=== PATIENT | male | born 1950 | race Caucasian/White ===

== ENCOUNTER → 2017-05-31 10:26 | Outpatient (CLI) | payer MEDICARE, SELFPAY ==
[2017-05-31 13:14] LABS: AST(SGOT) 19 U/L (15-37); Alanine Aminotransfer ALT/SGPT 15 U/L (16-61); Albumin, Serum 3.6 g/dL (3.2-5.0); Alkaline Phosphatase 69 U/L (45-117); Cholesterol 100 mg/dL (200); Globulin 3.6 g/dL (2.2-4.2); High Density Lipoprotein 46 mg/dL; Protein, Total 7.2 g/dL (6.4-8.2); Triglycerides 70 mg/dL; Very Low Density Lipoprotein 14 mg/dL (5-40)
== END ==
PROVIDERS: Family Provider Family Medicine; PCP Family Medicine; Visit Provider Nurse Practitioner Family
DX: E78.5 Hyperlipidemia, unspecified (principal); Z79.899 Other long term (current) drug therapy
CPT/HCPCS: 36415; 80061; 80076

== ENCOUNTER 2017-09-26 19:53 | Emergency (ER) | payer MEDICARE, SELFPAY ==
[2017-09-26 19:53] VITALS: BP 148/91; PULSE 64; RESP 16; TEMP 36.6; O2SAT 99; BMI 26.2
--- NOTE | 2017-09-26 21:14 | RAD_ITS ---
STUDY: X-RAY - LEFT ELBOW REASON FOR EXAM: Male, 66 years old. Elbow pain and swelling after falling. TECHNIQUE: 3 view(s) of the elbow. COMPARISON: None. FINDINGS: Normal visualized humerus, radius and ulna. Normal radiocapitellar and ulnotrochlear articulations. Focal posterior soft tissue hematoma. RAD/Elbow min 3 Views IMPRESSION: Posterior hematoma of the elbow without underlying fracture, dislocation or hemarthrosis. Electronically Signed: Anna Smith MD at 21:49 EDT , Service support ,
[2017-09-26] MEDS: Acetaminophen 325 MG Tablet 650 MG PO (21:21)
--- NOTE | 2017-09-26 22:53 | ED.VISSUMM ---
- ER Visit Summary Date of Service: 09/26/17 Chief Complaint: Fall History of Present Illness: The patient is a 66 M who fell from standing. He landed on his left elbow and left hip. Complains of swelling and pain to the left elbow. Denies any head or neck injury. Denies head or neck pain. Denies loss of consciousness. He does take aspirin and Plavix. No weakness or numbness. No other associated symptoms. Physical Examination: Afebrile and vital signs unremarkable. Head and neck atraumatic. Left arm is remarkable for swelling over the olecranon. No obvious deformity. Good range of motion. Neurovascular intact distally. Skin is intact. Left hip shows no shortening. Negative logroll. Good range of motion. There is some associated bruising. Neurovascular intact distally. Otherwise atraumatic. Test Results: X-rays of the left elbow showed a hematoma but no underlying fracture. Patient declined x-rays of his hip. Emergency Department Course and Treatment: Patient was advised that he has a hematoma, possibly traumatic bursitis. No sign of fracture. He was given a [place] home pack. He is not currently on any active opioid prescriptions. Risks were discussed. Follow-up with Ortho. Treatment Plan: As above Disposition: Discharged Impression: 1. Left traumatic olecranon bursitis This note was generated with [employer] dictation software. It may contain incorrect words, spelling, and punctuation that were not noted in review of the chart prior to signing ED Disposition - Plan for ED Patient: Chief Complaint: Fall Referrals: Beulah Catherine DO [Primary Care Provider] -
--- NOTE | 2017-09-26 22:56 | ED.DEP ---
ED Disposition - Plan for ED Patient: Chief Complaint: Fall Instructions: ED Bursitis Elbow Olecranon Referrals: Bernard Vargas DO [STAFF PHYSICIAN] -
[2017-09-26] MEDS: HYDROcodone Bitartrate/Apap 5/325 Tablet PO (23:03)
[2017-09-26 23:05] VITALS: PULSE 64; RESP 16; O2SAT 99
== END 2017-09-26 23:06 | disposition home or self-care (01) ==
LOC: ED 21:20
PROVIDERS: Emergency Provider Emergency Medicine; Family Provider Family Medicine; PCP Family Medicine
DX: M70.22 Olecranon bursitis, left elbow (principal); I25.10 Atherosclerotic heart disease of native coronary artery without angina pectoris; J44.9 Chronic obstructive pulmonary disease, unspecified; I10 Essential (primary) hypertension; G47.33 Obstructive sleep apnea (adult) (pediatric); G25.81 Restless legs syndrome; M79.7 Fibromyalgia; Z87.891 Personal history of nicotine dependence; Z86.19 Personal history of other infectious and parasitic diseases
CPT/HCPCS: 73080; 99283

== ENCOUNTER → 2017-12-11 07:05 | Outpatient (CLI) | payer MEDICARE, SELFPAY ==
--- NOTE | 2017-12-11 07:06 | ECHOD_ITS ---
Reason For Study: CAD, ASHD Procedure This was a 2D Doppler, Color Flow transthoracic echocardiogram. The exam was of adequate technical quality. Exam performed in department. Left Ventricle Normal LV size. Left ventricular systolic function is normal. The estimated ejection fraction is 65 %. Normal diastology for age. No regional wall motion abnormalities noted. Right Ventricle Normal RV size. Normal systolic function. Atria Normal left atrium. Normal right atrium. No doppler evidence for ASD. Mitral Valve There is no mitral annular calcification. Normal mitral valve. Mild-Moderate (1-2+) mitral valve insufficiency. Tricuspid Valve Normal tricuspid valve. Trivial tricuspid valve insufficiency. Right ventricular systolic pressure estimated to be 30 mmHg. Aortic Valve Trisinus/trileaflet aortic valve. Mild diffuse aortic valve thickening. Moderate diffuse aortic valve calcification. Mild aortic stenosis. Trivial aortic valve insufficiency. Pulmonic Valve The pulmonic valve is not well visualized. Trivial pulmonic valve insufficiency. Great Vessels Normal sized aortic root. Pericardium/Pleural No pericardial effusion. MMode/2D Measurements & Calculations LVIDd: 4.6 cm IVSd: 0.69 cm LVOT diam: 2.1 cm LVIDs: 2.8 cm LVPWd: 0.80 cm LVOT area: 3.6 cm2 RVDd: 3.2 cm FS: 39.8 % Ao root diam: 2.9 cm LAV(MOD-bp): 41.1 ml LVAd ap4: 26.7 cm2 LA dimension: 3.5 cm LAV(MOD-bp) Indexed: 22.0 ml/m2 EDV(MOD-sp4): 74.6 ml LAV(MOD-sp2): 56.7 ml EDV(sp4-el): 76.0 ml LAV(MOD-sp4): 30.4 ml LVAs ap4: 12.7 cm2 ESV(MOD-sp4): 22.7 ml ESV(sp4-el): 22.6 ml EF(MOD-sp4): 69.5 % EF(sp4-el): 70.2 % SV(MOD-sp4): 51.9 ml SV(sp4-el): 53.4 ml LA A4 area: 14.1 cm2 RA A4 area: 16.5 cm2 Doppler Measurements & Calculations MV E max kenneth: 74.8 cm/sec Lat Peak E' Kenneth: 7.8 cm/sec Med Peak E' Kenneth: 6.6 cm/sec MV A max kenneth: 84.8 cm/sec E/E' lat: 9.6 E/E' med: 11.4 MV E/A: 0.88 Ao V2 max: 256.2 cm/sec LV V1 max: 130.5 cm/sec SV(LVOT): 100.7 ml Ao max P.2 mmHg LV V1 max P.8 mmHg Ao V2 mean: 182.9 cm/sec LV V1 mean P.3 mmHg Ao mean P.7 mmHg LV V1 mean: 84.4 cm/sec Ao V2 VTI: 59.1 cm LV V1 VTI: 27.8 cm SHEKHAR(I,D): 1.7 cm2 SHEKHAR(V,D): 1.8 cm2 PA V2 max: 80.9 cm/sec TR max kenneth: 257.6 cm/sec TR max P.5 mmHg Interpretation Summary Left ventricular systolic function is normal. The estimated ejection fraction is 65 %. Mild-Moderate (1-2+) mitral valve insufficiency. Trivial tricuspid valve insufficiency. Mild aortic stenosis. Trivial aortic valve insufficiency. Trivial pulmonic valve insufficiency. Right ventricular systolic pressure estimated to be 30 mmHg. Normal diastology for age. Ordering Physician: Grey Harry Referring Physician: Beulah Catherine Performed By: Julia Mckeon RDCS, RVT
--- NOTE | 2017-12-11 20:35 | STRESSREP ---
Stress Test Report Date: 12/11/2017 Procedure: Exercise tolerance test/imaging study Indications: Chest pain; CAD; status post PCI Consent: Per the patient Procedure: The patient exercised on a Mauro protocol for 7 minutes completing Stage II and 1 minute of Stage III achieving a peak heart rate of 100 bpm (65 % predicted maximal heart rate) with a peak blood pressure 170/80 mmHg and a peak MET capacity of 8 METs. The baseline ECG demonstrated sinus bradycardia. The peak exercise ECG demonstrated somatic/motion artifact with no obvious ECG changes at the heart rate achieved. There was an occasional PVC during exercise. The functional capacity was considered average. There was [no complaint of chest discomfort during exercise or recovery]. The examination was discontinued secondary to hip and leg discomfort. Impression: 1. Technically inadequate (percent predicted maximal heart rate less than 85%) exercise tolerance test 2. Peak exercise ECG with somatic/motion artifact with no obvious ECG changes at the heart rate achieved 3. There was an occasional PVC during exercise. 4. Pharmacologic (Regadenoson) evaluation pending Procedure: Pharmacologic stress nuclear imaging study Consent: Per the patient Procedure: The patient underwent pharmacologic (Regadenoson) evaluation with a peak heart rate of 94 beats per minute (61 predicted maximal heart rate) and a peak blood pressure of 150/90 mmHg. The baseline ECG demonstrated sinus bradycardia. The peak pharmacologic ECG demonstrated no obvious ECG changes. [There were no cardiac dysrhythmias pretest, during pharmacologic infusion, or recovery]. [There was no complaint of chest discomfort during pharmacologic infusion or recovery]. The examination was discontinued secondary to completion of protocol. Impression: 1. Pharmacologic (Regadenoson) evaluation 2. Peak pharmacologic ECG with no obvious ECG changes. 3. There were no cardiac dysrhythmias pretest, during pharmacologic infusion, or recovery 4. Nuclear images pending Myocardial perfusion imaging study: Technique: The patient was injected with 11.8 millicuries of technetium 99m Cardiolite and subsequently rest SPECT Cardiolite nuclear imaging was obtained in the horizontal long, vertical long, and short axis views. The patient exercised on a Mauro protocol for 7 minutes completing Stage II and 1 minute of Stage III achieving a peak heart rate of 100 bpm (65 % predicted maximal heart rate) with a peak blood pressure 170/80 mmHg and a peak MET capacity of 8 METs. The patient underwent pharmacologic (Regadenoson) evaluation with a peak heart rate of 94 beats per minute (61 % percent predicted maximal heart rate) and a peak blood pressure of 150/90 mmHg. The patient was injected with 34.1 millicuries of technetium 99m Cardiolite and subsequently stress SPECT Cardiolite nuclear imaging was obtained in the horizontal long, vertical long, and short axis views. A gated Cardiolite study at peak stress was obtained. Interpretation: Rest and stress SPECT Cardiolite nuclear imaging status post realignment, normalization, and attenuation correction demonstrate relative uniform tracer uptake and myocardial perfusion appearing within normal limits. [There is end systolic thickening and brightening]. [The gated Cardiolite study demonstrates myocardial thickening and inward wall motion]. The reported LVEF is 67 %. Impression: 1. [Rest and stress SPECT Cardiolite nuclear imaging demonstrate relative uniform tracer uptake and myocardial perfusion appearing within normal limits]. 2. The gated Cardiolite study reports an LVEF of 67 %. This note was generated with [employer] software. It may contain incorrect words, spelling, and punctuation that were not noted in checking the note before signing.
== END ==
PROVIDERS: Family Provider Family Medicine; PCP Family Medicine; Visit Provider Internal Medicine Cardiovascular Disease
DX: I25.10 Atherosclerotic heart disease of native coronary artery without angina pectoris (principal)
CPT/HCPCS: 78452; 93017; 93306; A9500; A4216; J2785

== ENCOUNTER → 2018-06-15 06:42 | Outpatient (CLI) | payer MEDICARE, SELFPAY ==
[2018-06-01 15:55] VITALS: BMI 24.1
[2018-06-15 07:58] LABS: AST(SGOT) 22 U/L (15-37); Alanine Aminotransfer ALT/SGPT 16 U/L (16-61); Albumin, Serum 3.7 g/dL (3.2-5.0); Alkaline Phosphatase 64 U/L (45-117); Bilirubin, Direct 0.22 mg/dL (0.00-0.30); Cholesterol 104 mg/dL (200); Globulin 3.3 g/dL (2.2-4.2); High Density Lipoprotein 50 mg/dL; Triglycerides 83 mg/dL; Very Low Density Lipoprotein 17 mg/dL (5-40)
== END ==
PROVIDERS: Family Provider Family Medicine; PCP Family Medicine; Referring Provider Internal Medicine Cardiovascular Disease; Visit Provider Internal Medicine Cardiovascular Disease
DX: I65.23 Occlusion and stenosis of bilateral carotid arteries (principal); E78.5 Hyperlipidemia, unspecified
CPT/HCPCS: 36415; 80061; 80076

== ENCOUNTER → 2018-08-26 | Outpatient (CLI) | payer MEDICARE, SELFPAY ==
[2018-06-01 15:55] VITALS: BMI 24.1
== END | disposition home or self-care (01) ==
PROVIDERS: Family Provider Family Medicine; PCP Family Medicine; Visit Provider Family Medicine
DX: L03.116 Cellulitis of left lower limb (principal); L02.416 Cutaneous abscess of left lower limb
CPT/HCPCS: 87070; 87075; 87077; 87186; 87205

== ENCOUNTER → 2018-12-09 06:33 | Outpatient (CLI) | payer MEDICARE, SELFPAY ==
[2018-06-01 15:55] VITALS: BMI 24.1
[2018-12-09 07:50] LABS: AST(SGOT) 23 U/L (15-37); Alanine Aminotransfer ALT/SGPT 19 U/L (16-61); Albumin, Serum 3.6 g/dL (3.2-5.0); Alkaline Phosphatase 69 U/L (45-117); Bilirubin, Direct 0.17 mg/dL (0.00-0.30); Cholesterol 121 mg/dL (200); Globulin 3.8 g/dL (2.2-4.2); High Density Lipoprotein 46 mg/dL; Protein, Total 7.4 g/dL (6.4-8.2); Triglycerides 98 mg/dL; Very Low Density Lipoprotein 20 mg/dL (5-40)
== END ==
PROVIDERS: Family Provider Family Medicine; PCP Family Medicine; Referring Provider Internal Medicine Cardiovascular Disease; Visit Provider Internal Medicine Cardiovascular Disease
DX: I25.10 Atherosclerotic heart disease of native coronary artery without angina pectoris (principal)
CPT/HCPCS: 36415; 80061; 80076

== ENCOUNTER → 2019-03-30 13:05 | Outpatient (CLI) | payer MEDICARE, SELFPAY ==
[2018-12-09 15:50] VITALS: BMI 23.8
[2019-03-30 15:45] LABS: Amphetamine Urine VISTA NEGATIVE (<1000 ng/mL); Barbiturate Urine VISTA NEGATIVE (< 200 ng/mL); Benzodiazepine Urine VISTA NEGATIVE (< 200 ng/mL); Cocaine Urine VISTA NEGATIVE (< 300 ng/mL); Ecstacy Urine VISTA NEGATIVE (< 500 ng/mL); Methadone Urine VISTA NEGATIVE (< 300 ng/mL); PCP Urine VISTA NEGATIVE (< 25 ng/mL); THC Urine VISTA POSITIVE (< 50 ng/mL); Vista UDS pH Range 7
== END ==
PROVIDERS: Family Provider Family Medicine; PCP Family Medicine; Visit Provider Family Medicine
DX: F11.90 Opioid use, unspecified, uncomplicated (principal); Z51.81 Encounter for therapeutic drug level monitoring
CPT/HCPCS: 80307

== ENCOUNTER → 2019-05-25 07:10 | Outpatient (CLI) | payer MEDICARE, SELFPAY ==
[2018-12-09 15:50] VITALS: BMI 23.8
[2019-05-25 08:07] LABS: AST(SGOT) 18 U/L (15-37); Alanine Aminotransfer ALT/SGPT 17 U/L (16-61); Albumin, Serum 3.5 g/dL (3.2-5.0); Alkaline Phosphatase 66 U/L (45-117); Bilirubin, Direct 0.18 mg/dL (0.00-0.30); Cholesterol 110 mg/dL (200); Globulin 3.5 g/dL (2.2-4.2); High Density Lipoprotein 54 mg/dL; Triglycerides 81 mg/dL; Very Low Density Lipoprotein 16 mg/dL (5-40)
== END ==
PROVIDERS: PCP Family Medicine; Referring Provider Internal Medicine Cardiovascular Disease; Visit Provider Internal Medicine Cardiovascular Disease
DX: E78.00 Pure hypercholesterolemia, unspecified (principal); I25.10 Atherosclerotic heart disease of native coronary artery without angina pectoris; Z95.5 Presence of coronary angioplasty implant and graft
CPT/HCPCS: 36415; 80061; 80076

== ENCOUNTER → 2019-07-19 07:49 | Outpatient (CLI) | payer MEDICARE, SELFPAY ==
[2019-07-09 14:21] VITALS: BMI 23.6
--- NOTE | 2019-07-19 07:50 | CDU_ITS ---
Reason For Study: Carotid artery stenosis Rt. Velocities/BP Lt. Velocities/BP Prox CCA 55.1/11.6 cm/sec. Prox CCA 83.4/16.3 cm/sec. Mid CCA 60.8/12.6 cm/sec. Mid CCA 61.7/13.5 cm/sec. Dist CCA 57/12.6 cm/sec. Dist CCA 58.8/17.3 cm/sec. Prox ICA 51.3/15.4 cm/sec. Prox ICA 40.4/9 cm/sec. Mid ICA 52.2/12.6 cm/sec. Mid ICA 47.4/17.7 cm/sec. Dist ICA 52.2/18.2. cm/sec. Dist ICA 35.8/11.6 cm/sec. Rt. ICA/CCA = 0.9. Lt. ICA/CCA = 0.8. Prox ECA 63.6/7.8 cm/sec. Prox ECA 56.1/6.4 cm/sec. Rt. Vert. 35.2/10.7 cm/sec. Lt. Vert. 41.5/15.9 cm/sec. Right Extracranial There is homogeneous, smooth atherosclerotic plaque noted in the right common carotid artery. There is heterogeneous, irregular atherosclerotic plaque noted in the right internal carotid artery. There is heterogeneous, smooth atherosclerotic plaque noted in the right external carotid artery. Antegrade flow is noted in the right vertebral artery. Left Extracranial There is homogeneous, smooth atherosclerotic plaque noted in the left common carotid artery. There is heterogeneous, irregular atherosclerotic plaque noted in the left internal carotid artery. There is intimal thickening but no significant atherosclerotic plaque noted in the left external carotid artery. Antegrade flow is noted in the left vertebral artery. Procedure Carotid Duplex 22438. Exam performed in department. Interpretation Summary Irregular calcific plaque at the proximal right internal carotid <50% stenosis right internal carotid <50% stenosis right external carotid Irregular calcific plaque at the proximal left internal carotid <50% stenosis left internal carotid <50% stenosis left externalc carotid Patent, antegrade vertebrals bilaterally No change from 10/30/15 Ordering Physician: Grey Harry Referring Physician: Beulah Catherine Performed By: Ciera Noel RVT
== END ==
PROVIDERS: PCP Family Medicine; Referring Provider Internal Medicine Cardiovascular Disease; Visit Provider Internal Medicine Cardiovascular Disease
DX: I65.23 Occlusion and stenosis of bilateral carotid arteries (principal)
CPT/HCPCS: 93880

== ENCOUNTER → 2020-01-03 07:07 | Outpatient (CLI) | payer MEDICARE, SELFPAY ==
[2019-07-09 14:21] VITALS: BMI 23.6
--- NOTE | 2020-01-03 07:50 | RAD_ITS ---
STUDY: X-RAY - LUMBAR SPINE REASON FOR EXAM: Male, 69 years old. PAIN, NKI, HX FUSION 2012 TECHNIQUE: 4 view(s) of the lumbar spine were obtained. COMPARISON: None FINDINGS: There are NO fractures or malalignments. There is hardware transfixing L4 and L5. There is mild multilevel degenerative disc change and facet arthropathy. Bony pelvis is intact. There are diffuse vascular calcifications. There are bilateral renal stents. Soft tissues are unremarkable. RAD/Lumbar Spine 2 or 3 Views IMPRESSION: There is NO acute bony injury. Electronically Signed: Arsalan Javier MD at 2:35 EDT , Service support ,
[2020-01-03 09:50] LABS: Absolute Lymphocyte Count 1.59 X10^3/uL (0.83-4.51); Absolute Neutrophil Count 2.9 X10^3/uL (2.0-7.7); Basophil# 0.05 X10^3/uL; Basophil% 0.9 % (0-1); Eosinophil# 0.39 X10^3/uL; Hematocrit 39.3 % (40-54); Hemoglobin 13.4 g/dL (13.0-16.5); Lymphocyte # 1.59 X10^3/ul (4.0); Lymphocyte % 28.3 % (19-41); Mean Corp Hgb Conc 34.1 g/dL (32-36); Mean Corpuscular Hgb 30.8 pg (27.0-32.0); Mean Corpuscular Volume 90.3 fL (80-94); Mean Platelet Vol. 9.2 fl (6.2-12.0); Monocyte# 0.68 X10^3/uL; Monocyte% 12.1 % (0-10); NRBC Flagged by Analyzer 0 % (0-5); Neutrophil # 2.87 X10^3/uL (2.7-7.7); Neutrophil % 51.2 % (47-70); Platelet Count 175 K/mm3 (150-450); RBC Distribution Width SD 43.2 fl (35.1-43.9); Red Blood Count 4.35 M/mm3 (4.6-6.2); White Blood Count 5.6 K/mm3 (4.4-11.0)
[2020-01-03 10:26] LABS: ALB/GLOB Ratio 1.1 RATIO (0.9-2.4); AST(SGOT) 19 U/L (15-37); Alanine Aminotransfer ALT/SGPT 15 U/L (16-61); Albumin, Serum 3.5 g/dL (3.2-5.0); Alkaline Phosphatase 60 U/L (45-117); Anion Gap 2 (5-15); BUN 5 mg/dL (7-18); BUN/Creat Ratio 5.5 RATIO (10-20); Chloride 92 mmol/L (98-107); Creatinine, Serum 0.91 mg/dL (0.70-1.30); EST Glomerular Filtration Rate 88 mL/min (>60); Est Glom Filt Rate - Afr Amer 106 mL/min (>60); Ferritin 132 ng/mL (26-388); Globulin 3.3 g/dL (2.2-4.2); Glucose 83 mg/dL (74-106); Iron 56 ug/dL (65-175); PSA,Total - Annual Screen 0.23 ng/mL (0.00-4.00); Potassium 3.2 mmol/L (3.5-5.1); Protein, Total 6.8 g/dL (6.4-8.2); Sodium Level 130 mmol/L (136-145)
[2020-01-03 10:33] LABS: Vitamin B12 399 pg/mL (211-911)
== END ==
PROVIDERS: PCP Family Medicine; Referring Provider Family Medicine; Visit Provider Family Medicine
DX: G62.9 Polyneuropathy, unspecified (principal); R53.83 Other fatigue; Z12.5 Encounter for screening for malignant neoplasm of prostate; E53.8 Deficiency of other specified B group vitamins; Z51.81 Encounter for therapeutic drug level monitoring; D64.9 Anemia, unspecified; M54.5 Low back pain; G89.29 Other chronic pain
CPT/HCPCS: 36415; 72100; 80053; 82607; 82728; 83540; 84153; 85025; G0103

== ENCOUNTER → 2020-01-19 16:01 | Outpatient (CLI) | payer MEDICARE, SELFPAY ==
[2019-07-09 14:21] VITALS: BMI 23.6
--- NOTE | 2020-01-19 16:19 | MRI_ITS ---
STUDY: MRI LUMBAR SPINE WITHOUT CONTRAST REASON FOR EXAM: Male, 69 years old. radiculopathy, hx lumbar surgery TECHNIQUE: Standardized fat and water weighted pulse sequences were obtained in the sagittal and axial planes. COMPARISON: 05/20/2016 FINDINGS: T12-L1: Normal endplates. Normal disc height, hydration and morphology. Normal bilateral facet joints. Normal central canal and bilateral lateral recesses. Normal bilateral intervertebral neural foramina. Normal lumbar lordosis. There is no substantial scoliosis. Normal conus medullaris that terminates at the L1 level. Bilateral posterior pedicle fusions at the L4 and L5 levels. L1-2: Bulging annulus and bilateral facet and ligamentum flavum hypertrophy with mild central canal and bilateral foraminal stenoses. L2-3: Bulging annulus and bilateral facet hypertrophy with moderate right and mild left foraminal stenoses. L3-4: Bilateral laminectomies. Bulging annulus and bilateral facet hypertrophy with moderate to severe left and moderate right foraminal stenoses. L4-5: Surgical fusion of the disc space. Bilateral laminectomies. Residual osteophytes with mild bilateral foraminal stenoses. L5-S1: Left laminectomy. Bulging annulus and bilateral facet hypertrophy. Left foraminal disc protrusion. Severe left and moderate right foraminal stenoses. Normal visualized sacral ala. Normal visualized paraspinous soft tissue structures. Distended urinary bladder. MRI/Spine Lumbar (Routine) IMPRESSION: Multilevel degenerative disease and postoperative change as described. Severe left foraminal stenosis at the L5-S1 level. Moderate to severe left foraminal stenosis at the L3-4 level. Electronically Signed: Chester Ch MD at 19:46 EDT Tel , Service support ,
== END ==
PROVIDERS: PCP Family Medicine; Referring Provider Family Medicine; Visit Provider Family Medicine
DX: M54.16 Radiculopathy, lumbar region (principal); M96.1 Postlaminectomy syndrome, not elsewhere classified
CPT/HCPCS: 72148

== ENCOUNTER → 2020-02-18 07:53 | Outpatient (CLI) | payer MEDICARE, SELFPAY ==
[2020-02-09 15:21] VITALS: BMI 22.5
--- NOTE | 2020-02-18 07:55 | ECHOD_ITS ---
Reason For Study: CAD, Procedure This was a 2D Doppler, Color Flow transthoracic echocardiogram. The exam was of adequate technical quality. Exam performed in department. Left Ventricle Normal left ventricle. Left ventricular systolic function is normal. The estimated ejection fraction is 60 %. No evidence for diastolic dysfunction. No regional wall motion abnormalities noted. Right Ventricle Normal RV size. Normal systolic function. Atria Normal left atrium. Normal right atrium. No doppler evidence for ASD. Mitral Valve The mitral papillary muscle appears thickened and/or calcified. Normal mitral valve. Mild (1+) mitral valve insufficiency. Tricuspid Valve Normal tricuspid valve. Mild tricuspid valve insufficiency. Right ventricular systolic pressure estimated to be 22 mmHg. Aortic Valve Trisinus/trileaflet aortic valve. Mild diffuse aortic valve thickening. Moderate diffuse aortic valve calcification. Mild aortic stenosis. Trivial aortic valve insufficiency. Pulmonic Valve The pulmonic valve is not well visualized. Trivial pulmonic valve insufficiency. Great Vessels Normal sized aortic root. Pericardium/Pleural No pericardial effusion. MMode/2D Measurements & Calculations LVIDd: 3.9 cm IVSd: 0.97 cm LVOT diam: 2.1 cm LVIDs: 2.2 cm LVPWd: 1.0 cm LVOT area: 3.5 cm2 RVDd: 3.3 cm FS: 44.1 % Ao root diam: 3.3 cm LAV(MOD-bp): 49.0 ml EDV(MOD-sp4): 80.3 ml LAV(MOD-bp) Indexed: 26.0 ml/m2 ESV(MOD-sp4): 30.6 ml LAV(MOD-sp2): 48.3 ml EF(MOD-sp4): 61.9 % LAV(MOD-sp4): 42.0 ml EDV(MOD-sp2): 83.7 ml SV(MOD-sp4): 49.7 ml SV(MOD-sp2): 51.4 ml EF(MOD-sp2): 61.4 % LA A4 area: 17.9 cm2 LA dimension(2D): 3.2 cm RA A4 area: 18.2 cm2 Doppler Measurements & Calculations MV E max kenneth: 70.2 cm/sec Lat Peak E' Kenneth: 6.6 cm/sec Med Peak E' Kenneth: 6.7 cm/sec MV A max kenneth: 87.5 cm/sec E/E' lat: 10.6 E/E' med: 10.5 MV E/A: 0.80 Ao V2 max: 286.1 cm/sec AI max kenneth: 336.1 cm/sec LV V1 max: 131.1 cm/sec Ao max P.8 mmHg AI max P.2 mmHg LV V1 max P.9 mmHg Ao V2 mean: 205.9 cm/sec LV V1 mean P.6 mmHg Ao mean P.6 mmHg AI dec slope: 123.6 cm/sec2 LV V1 mean: 89.4 cm/sec Ao V2 VTI: 72.0 cm AI P1/2t: 796.3 msec LV V1 VTI: 32.3 cm SHEKHAR(I,D): 1.6 cm2 SHEKHAR(V,D): 1.6 cm2 SV(LVOT): 114.0 ml TR max kenneth: 217.5 cm/sec TR max P.9 mmHg Interpretation Summary Left ventricular systolic function is normal. The estimated ejection fraction is 60 %. Mild (1+) mitral valve insufficiency. Mild tricuspid valve insufficiency. Mild aortic stenosis. Trivial aortic valve insufficiency. Trivial pulmonic valve insufficiency. Right ventricular systolic pressure estimated to be 22 mmHg. No evidence for diastolic dysfunction. Ordering Physician: Grey Harry Referring Physician: Beulah Catherine Performed By: Betsy Figueroa RDCS
== END ==
PROVIDERS: PCP Family Medicine; Referring Provider Internal Medicine Cardiovascular Disease; Visit Provider Internal Medicine Cardiovascular Disease
DX: I25.10 Atherosclerotic heart disease of native coronary artery without angina pectoris (principal); Z95.5 Presence of coronary angioplasty implant and graft; I65.23 Occlusion and stenosis of bilateral carotid arteries; I10 Essential (primary) hypertension; E87.6 Hypokalemia; E53.8 Deficiency of other specified B group vitamins
CPT/HCPCS: 36415; 80053; 82607; 83540; 93306

== ENCOUNTER → 2020-02-18 08:45 | Outpatient (CLI) | payer MEDICARE, SELFPAY ==
[2019-07-09 14:21] VITALS: BMI 23.6
[2020-02-09 15:21] VITALS: BMI 22.5
[2020-02-18 10:10] LABS: Anion Gap 2 (5-15); BUN 6 mg/dL (7-18); BUN/Creat Ratio 6.6 RATIO (10-20); Calcium,Total 9.1 mg/dL (8.5-10.1); Chloride 93 mmol/L (98-107); EST Glomerular Filtration Rate 88 mL/min (>60); Est Glom Filt Rate - Afr Amer 107 mL/min (>60); Glucose 84 mg/dL (74-106); Potassium 3.1 mmol/L (3.5-5.1); Sodium Level 130 mmol/L (136-145)
== END ==
PROVIDERS: PCP Family Medicine; Referring Provider Family Medicine; Visit Provider Family Medicine
DX: E87.6 Hypokalemia (principal); E53.8 Deficiency of other specified B group vitamins
CPT/HCPCS: 36415; 80048; 80053; 82607; 83540

== ENCOUNTER → 2020-03-13 10:35 | Outpatient (CLI) | payer MEDICARE, SELFPAY ==
[2020-02-09 15:21] VITALS: BMI 22.5
== END ==
LOC: LAB.FUTURE 10:35 → MTLAB 10:39
PROVIDERS: PCP Family Medicine; Referring Provider Family Medicine; Visit Provider Family Medicine
DX: E87.6 Hypokalemia (principal); E53.8 Deficiency of other specified B group vitamins
CPT/HCPCS: 36415; 80053; 82607; 83540

== ENCOUNTER → 2020-04-20 06:43 | Outpatient (CLI) | payer MEDICARE, SELFPAY ==
[2020-02-09 15:21] VITALS: BMI 22.5
--- NOTE | 2020-04-20 06:49 | RAD_ITS ---
STUDY: X-RAY - PELVIS AND BILATERAL HIPS REASON FOR EXAM: Bilateral hip pain, greater on the left. TECHNIQUE: AP view of the pelvis.? 2 views of the right hip, and 2 views of the left hip were obtained. COMPARISON: None. FINDINGS: There is vascular calcification. Normal bilateral iliac wings, sacroiliac joints and visualized sacrum. Normal bilateral superior and inferior pubic rami. Normal pubic symphysis. Normal bilateral ischial tuberosities. There is a herniation pit of the right femoral head/neck junction. There is a small cyst in the posterior lateral right acetabulum. There is a small marginal osteophyte of the right femoral head and mild joint space narrowing of the superior medial right hip joint. There is a herniation pit of the left femoral head/neck junction. Normal left acetabulum. There is a small marginal osteophyte of the left femoral head and mild joint space narrowing of the superior medial left hip joint. RAD/Hips B/L min 2 views w/ Pelvis IMPRESSION: Mild bilateral hip arthrosis. 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 Electronically Signed: Timmy Lopez MD at 8:32 EST Tel , Service support ,
== END ==
PROVIDERS: PCP Family Medicine; Referring Provider Nurse Practitioner Family; Visit Provider Nurse Practitioner Family
DX: M25.552 Pain in left hip (principal); M25.551 Pain in right hip
CPT/HCPCS: 73521

== ENCOUNTER → 2020-06-19 08:12 | Outpatient (CLI) | payer MEDICARE, SELFPAY ==
--- NOTE | 2020-06-19 10:15 | NEURO ---
NCS and/or EMG Patient Report Ordering Doctor: Salty Glez DATE OF SERVICE: 06/19/20 Indication: History of chronic low back pain and spondylosis status post decompression and fusion. Now with new onset right hip/groin pain with occasional radiation to the right thigh. Evaluate for lumbar radiculopathy. Findings: Nerve conduction studies were performed in the right and left lower extremity. The right peroneal motor study recording the extensor digitorum brevis showed a borderline amplitude, normal distal latency and borderline conduction velocity. No conduction block or focal slowing was present across the fibular neck. The right tibial motor study recording the abductor hallucis brevis showed a borderline amplitude, normal distal latency and borderline conduction velocity. Right sural sensory response showed a normal amplitude and borderline conduction velocity. Right superficial peroneal sensory response showed a normal amplitude and conduction velocity. The left peroneal motor study recording the extensor digitorum brevis showed a reduced amplitude, normal distal latency and borderline conduction velocity. No conduction block or focal slowing was present across the fibular neck. The left peroneal motor study recording the tibialis anterior showed a normal amplitude, normal distal latency and borderline conduction velocity. The left tibial motor study recording the abductor hallucis brevis showed a borderline amplitude, normal distal latency and normal conduction velocity. Left sural sensory response showed a normal amplitude and conduction velocity. Left superficial peroneal sensory response could not be obtained. Needle EMG of the right lower extremity muscles was performed. The lumbar paraspinal muscles were not examined due to the patient's history of prior low back surgery.No active denervation was present in any examined muscle. The right tibialis anterior, extensor hallucis brevis and tensor fascia latae muscles revealed motor units which were large amplitude, long duration and polyphasic with normal recruitment. The motor units in the vastus medialis, adductor keron and medial gastrocnemius muscles were normal in morphology, activation and recruitment patterns. Impression: This is an abnormal study. There is electrophysiologic evidence of a chronic right L5 radiculopathy without active denervation. There was no evidence of a right upper lumbar radiculopathy (L3/4). However, please note that the electrodiagnosis of radiculopathy is made on the basis of excluding peripheral nerve lesions on nerve conduction studies and the needle EMG demonstrating denervation and/or reinnervation in the distribution of one or more nerve roots (i.e., acute and/or chronic axonal loss). Thus, electrodiagnostic studies are insensitive in detecting radiculopathy in the absence of axonal loss (e.g., in the setting of compression resulting in intermittent ischemia or mechanical deformation; or demyelination without axonal loss). Finally, the absent left superficial sensory response is of unclear significance. It was not fully investigated as it was not the indication for the current evaluation. Duncan Turk D.O.
== END ==
PROVIDERS: PCP Family Medicine; Referring Provider Orthopaedic Surgery; Visit Provider Orthopaedic Surgery
DX: M51.36 Other intervertebral disc degeneration, lumbar region (principal)
CPT/HCPCS: 95886; 95912

== ENCOUNTER → 2020-08-28 07:07 | Outpatient (CLI) | payer MEDICARE, SELFPAY ==
[2020-08-17 15:11] VITALS: BMI 23.1
[2020-08-28 10:27] LABS: AST(SGOT) 15 U/L (15-37); Alanine Aminotransfer ALT/SGPT 16 U/L (16-61); Albumin, Serum 3.7 g/dL (3.2-5.0); Alkaline Phosphatase 74 U/L (45-117); Bilirubin, Direct 0.21 mg/dL (0.00-0.30); Cholesterol 118 mg/dL (200); Globulin 3.4 g/dL (2.2-4.2); High Density Lipoprotein 54 mg/dL; Protein, Total 7.1 g/dL (6.4-8.2); Triglycerides 72 mg/dL; Very Low Density Lipoprotein 14 mg/dL (5-40)
== END ==
PROVIDERS: PCP Family Medicine; Referring Provider Internal Medicine Cardiovascular Disease; Visit Provider Internal Medicine Cardiovascular Disease
DX: E78.00 Pure hypercholesterolemia, unspecified (principal); I25.10 Atherosclerotic heart disease of native coronary artery without angina pectoris
CPT/HCPCS: 36415; 80061; 80076

== ENCOUNTER → 2021-01-02 14:58 | Outpatient (CLI) | payer MEDICARE, SELFPAY | PROVIDERS: PCP Family Medicine; Referring Provider Physician Assistant; Visit Provider Physician Assistant | DX: U07.1 COVID-19 (principal) | CPT/HCPCS: 87635; U0005; U0003 ==

== ENCOUNTER → 2021-07-16 | Outpatient (CLI) | payer MEDICARE, SELFPAY ==
[2021-07-16 09:52] LABS: AST(SGOT) 20 U/L (15-37); Alanine Aminotransfer ALT/SGPT 18 U/L (16-61); Albumin, Serum 3.7 g/dL (3.2-5.0); Alkaline Phosphatase 68 U/L (45-117); Bilirubin, Direct 0.15 mg/dL (0.00-0.30); Cholesterol 118 mg/dL (200); Globulin 3.6 g/dL (2.2-4.2); High Density Lipoprotein 48 mg/dL; Protein, Total 7.3 g/dL (6.4-8.2); Triglycerides 77 mg/dL; Very Low Density Lipoprotein 15 mg/dL (5-40)
== END | disposition home or self-care (01) ==
LOC: LAB 07:22
PROVIDERS: PCP Family Medicine; Referring Provider Internal Medicine Cardiovascular Disease; Visit Provider Internal Medicine Cardiovascular Disease
DX: E78.00 Pure hypercholesterolemia, unspecified (principal); E78.5 Hyperlipidemia, unspecified
CPT/HCPCS: 36415; 80061; 80076

== ENCOUNTER → 2021-10-04 | Outpatient (CLI) | payer MEDICARE, SELFPAY ==
--- NOTE | 2021-10-04 08:47 | ECHOD_ITS ---
Reason For Study: Murmur Procedure This was a 2D Doppler, Color Flow transthoracic echocardiogram. The study was technically difficult. Exam performed in department. Left Ventricle Normal LV size. Left ventricular systolic function is normal. The estimated ejection fraction is 65 %. No evidence for diastolic dysfunction. No regional wall motion abnormalities noted. Right Ventricle Normal RV size. Normal systolic function. Atria Normal left atrium. Normal right atrium. No doppler evidence for ASD. Mitral Valve There is mild mitral annular calcification. Extension of the mitral annular calcification on the base of the posterior mitral valve leaflet. Mild (1+) mitral valve insufficiency. Tricuspid Valve Normal tricuspid valve. Trivial tricuspid valve insufficiency. Right ventricular systolic pressure estimated to be 31 mmHg. Aortic Valve Trisinus/trileaflet aortic valve. Moderate diffuse aortic valve calcification. Moderate aortic stenosis. Trivial aortic valve insufficiency. Pulmonic Valve The pulmonic valve is not well visualized. Mild (1+) pulmonic valve insufficiency. Great Vessels Normal sized aortic root. Pericardium/Pleural No pericardial effusion. MMode/2D Measurements & Calculations LVIDd: 5.1 cm IVSd: 0.65 cm LVOT diam: 2.1 cm LVIDs: 2.8 cm LVPWd: 0.78 cm LVOT area: 3.4 cm2 RVDd: 3.5 cm FS: 45.2 % Ao root diam: 3.4 cm LAV(MOD-bp): 51.1 ml LVAd ap4: 32.3 cm2 LA dimension: 3.4 cm LAV(MOD-bp) Indexed: 26.9 ml/m2 LVLd ap4: 8.6 cm LAV(MOD-sp2): 44.1 ml EDV(MOD-sp4): 99.7 ml LAV(MOD-sp4): 55.0 ml EDV(sp4-el): 103.6 ml LVAs ap4: 18.7 cm2 LVLs ap4: 6.8 cm ESV(MOD-sp4): 44.0 ml ESV(sp4-el): 44.0 ml EF(MOD-sp4): 55.9 % EF(sp4-el): 57.5 % SV(MOD-sp4): 55.8 ml SV(sp4-el): 59.5 ml LA A4 area: 19.6 cm2 RA A4 area: 15.7 cm2 Time Measurements MV dec time: 0.20 sec Doppler Measurements & Calculations MV E max kenneth: 52.8 cm/sec Lat Peak E' Kenneth: 11.4 cm/sec Med Peak E' Kenneth: 11.4 cm/sec MV A max kenneth: 85.0 cm/sec E/E' lat: 4.6 E/E' med: 4.6 MV E/A: 0.62 MV V2 max: 105.6 cm/sec MV P1/2t max kenneth: 106.4 cm/sec Ao V2 max: 291.0 cm/sec MV max P.5 mmHg MV P1/2t: 65.8 msec Ao max P.9 mmHg MV V2 mean: 53.2 cm/sec Ao V2 mean: 209.8 cm/sec MV mean P.4 mmHg MV dec slope: 473.5 cm/sec2 Ao mean P.6 mmHg MV V2 VTI: 41.4 cm MVA(P1/2t): 3.3 cm2 Ao V2 VTI: 77.3 cm MVA(VTI): 2.0 cm2 SHEKHAR(I,D): 1.1 cm2 SHEKHAR(V,D): 1.2 cm2 AI max kenneth: 324.8 cm/sec LV V1 max: 99.9 cm/sec MR max kenneth: 625.4 cm/sec AI max P.2 mmHg LV V1 max P.0 mmHg MR max P.4 mmHg LV V1 mean P.7 mmHg MR mean kenneth: 465.1 cm/sec AI dec slope: 94.8 cm/sec2 LV V1 mean: 59.4 cm/sec MR mean P.5 mmHg AI P1/2t: 1003 msec LV V1 VTI: 24.0 cm MR VTI: 247.6 cm SV(LVOT): 82.3 ml PA V2 max: 80.3 cm/sec TR max kenneth: 262.5 cm/sec TR max P.6 mmHg ECHO/Echo Complete Interpretation Summary The study was technically difficult. Left ventricular systolic function is normal. The estimated ejection fraction is 65 %. There is mild mitral annular calcification. Extension of the mitral annular calcification on the base of the posterior mitr al valve leaflet. Mild (1+) mitral valve insufficiency. Trivial tricuspid valve insufficiency. Moderate diffuse aortic valve calcification. Moderate aortic stenosis. Trivial aortic valve insufficiency. Mild (1+) pulmonic valve insufficiency. Right ventricular systolic pressure estimated to be 31 mmHg. No evidence for diastolic dysfunction. Ordering Physician: Grey Harry Referring Physician: Beulah Catherine Performed By: Selwyn Storey RCS
--- NOTE | 2021-10-04 08:47 | CDU_ITS ---
Reason For Study: Carotid artery stenosis Rt. Velocities/BP Lt. Velocities/BP Prox CCA 49.4/10.7 cm/sec. Prox CCA 60.5/16 cm/sec. Mid CCA 56/12.6 cm/sec. Mid CCA 57.8/16 cm/sec. Dist CCA 55.1/10.7 cm/sec. Dist CCA 57/16 cm/sec. Prox ICA 68.3/17.3 cm/sec. Prox ICA 38.6/11.6 cm/sec. Mid ICA 74/19.2 cm/sec. Mid ICA 54.3/15.9 cm/sec. Dist ICA 48.2/16 cm/sec. Dist ICA 46.5/17.3 cm/sec. Rt. ICA/CCA = 1.34. Lt. ICA/CCA = 0.94. Prox ECA 43/5.5 cm/sec. Prox ECA 54.3/8.1 cm/sec. Rt. Vert. 39.5/11.6 cm/sec. Lt. Vert. 42.9/17.3 cm/sec. Right Extracranial There is homogeneous, smooth atherosclerotic plaque noted in the right common carotid artery. There is heterogeneous, irregular atherosclerotic plaque noted in the right internal carotid artery. There is intimal thickening but no significant atherosclerotic plaque noted in the right external carotid artery. Antegrade flow is noted in the right vertebral artery. Left Extracranial There is homogeneous, smooth atherosclerotic plaque noted in the left common carotid artery. There is heterogeneous, irregular atherosclerotic plaque noted in the left internal carotid artery. There is heterogeneous, irregular atherosclerotic plaque noted in the left external carotid artery. Antegrade flow is noted in the left vertebral artery. Procedure Carotid Duplex 29174. This is a Carotid Duplex examination using B-mode, color flow and specral Doppler. Exam performed in department. VL/Carotid Duplex Ultrasound Interpretation Summary Irregular calcific plaque with shadowing at the proximal right internal carotid artery with less than 50% stenosis Less than 50% stenosis right external carotid artery Irregular calcific plaque with shadowing at the proximal left internal carotid artery with less than 50% stenosis Less than 50% stenosis left external carotid artery Patent and antegrade vertebral arteries bilaterally No change from the previous examination of July 19, 2019 Ordering Physician: Grey Harry Referring Physician: Beulah Catherine Performed By: Ciera Noel RVT
== END | disposition home or self-care (01) ==
LOC: CVS 08:45
PROVIDERS: PCP Family Medicine; Referring Provider Internal Medicine Cardiovascular Disease; Visit Provider Internal Medicine Cardiovascular Disease
DX: I65.23 Occlusion and stenosis of bilateral carotid arteries (principal); I70.1 Atherosclerosis of renal artery; I25.10 Atherosclerotic heart disease of native coronary artery without angina pectoris; E78.5 Hyperlipidemia, unspecified; I35.0 Nonrheumatic aortic (valve) stenosis; R09.89 Other specified symptoms and signs involving the circulatory and respiratory systems; I10 Essential (primary) hypertension; Z95.5 Presence of coronary angioplasty implant and graft
CPT/HCPCS: 93306; 93880

== ENCOUNTER 2021-10-18 06:17 | Day surgery (SDC) | payer MEDICARE, SELFPAY ==
[2021-10-18] VITALS (7 sets, daily range): BP systolic 143–162; BP diastolic 70–109; PULSE 53–62; RESP 16–18; TEMP 35.8–36.3; O2SAT 98–100; BMI 21.2
[2021-10-18] MEDS: Lactated Ringers 1,000 ML 15 ML IV (06:35)
--- NOTE | 2021-10-18 07:30 | IMM_PTH ---
PATIENT: PATRICE LOVETT LOC: EN U#:[id number] AGE/SX: 70/M ROOM: RE10/18/[address]: Dr. Bernard Witt MD : 1950 BED: DIS: 10/18/2021 SPEC #: [id number] RECD: 10/18/21 13:35 STATUS: TADEO RESabas #: [id number] HUSSAIN: 10/18/21 07:[address]: Bernard Witt DEPT: IMMUNOHISTOCHEMISTRY RECD BY: Joselin Carreno ENTERED: 10/18/21 13:36 SP TYPE: IMMUNO OTHR DR: Dr. Beulah Catherine, Tissues: A - Stomach, NOS Procedures: H Pylori (initial) PHYSICIAN & INSTITUTION [place] [address] SPECIMEN INFORMATION: Tissue Source: A ? Antrum biopsy Clinical Info: Heartburn, colon polyps Specimen Number: [id number] CPT code: 32954 METHODOLOGY: Deparaffinized sections of prefer/formalin-fixed tissue or PAP/DQ stained slides are incubated with monoclonal/polyclonal antibodies/oligonucleotide probes. Localization is made via biotin free immunoperoxidase method. Appropriate controls are performed and reacted as expected. Results on target cell population are indicated in the following table: RESULTS: ANTIBODY / CLONE RESULT Block A H Pylori (polyclonal) negative These tests were developed and their performance characteristics determined by [facility]. They may not have been cleared or approved by the U.S. Food and Drug Administration. The FDA has determined that such clearance or approval is not necessary. The above immunohistochemical/dualISH markers are ordered and reviewed by the Pathologist. INTERPRETATION: A. Antrum biopsy: Negative for Helicobacter pylori organisms. SJ:re 10/19/2021
--- NOTE | 2021-10-18 07:30 | COLBX_PTH ---
PATIENT: PATRICE LOVETT LOC: EN U#:[id number] AGE/SX: 70/M ROOM: RE10/18/[address]: Dr. Bernard Witt MD : 1950 BED: DIS: 10/18/2021 SPEC #: [id number] RECD: 10/18/21 10:25 STATUS: TADEO LORNA #: [id number] HUSSAIN: 10/18/21 07:[address]: Bernard Witt DEPT: SURGICAL PATHOLOGY RECD BY: Farideh Price ENTERED: 10/18/21 11:06 SP TYPE: COLON BX OTHR DR: Dr. Beulah Catherine DO Tissues: A - Gastric mucous membrane B - COLON BIOPSY C - Gastric mucous membrane D - Esophagus, NOS E - Rectum, NOS Procedures: Special Stain Group II Surgery Specimen Level IV Alcian Blue/PAS (control) HEADER OPERATION: Colonoscopy with biopsy, polypectomy, [place] [place] PRE[place]OP DIAGNOSIS: Heartburn, colon polyps TISSUE SUBMITTED: A ? Antrum biopsy for H. pylori and path, B ? Lesser curvature biopsy, C ? GE junction biopsy, D ? Proximal esophagus, polypoid region biopsy, E ? Rectal polyp biopsy MICROSCOPIC DIAGNOSIS A. Antrum, biopsy: Mild gastritis. See microscopic description and comment. B. Lesser curvature, biopsy: Mild gastritis. See microscopic description. C. GE junction, biopsy: Fragments of gastroesophageal mucosa with chronic inflammation. Intestinal metaplasia (goblet cell metaplasia) not identified. See comment. D. Proximal esophagus, polypoid region, biopsy: A fragment of squamous epithelium with mild chronic inflammation. E. Rectal polyp, biopsy: Hyperplastic polyp. SJ:rg 10/19/2021 COMMENT A. The results of immunohistochemistry for Helicobacter pylori will be reported separately ([id number]). C. Alcian blue/PAS stain with matched control is used in the evaluation of the specimen. MICROSCOPIC DESCRIPTION Slides are reviewed. A & B. The specimen shows fragments of gastric mucosa with chronic inflammatory cell infiltrates in the lamina propria consisting of lymphocytes and plasma cells, consistent with mild chronic gastritis. GROSS DESCRIPTION A - Received in fixative is one container labeled with the patient's name and designated antrum biopsy. The specimen consists of two irregular fragments of [place] soft tissue that in aggregate measure 0.6 x 0.3 x 0.1 cm. The specimen is totally submitted in one cassette. B - Received in fixative is one container labeled with the patient's name and designated lesser curvature. The specimen consists of two irregular fragments of [place] soft tissue that in aggregate measure 0.6 x 0.3 x 0.1 cm. The specimen is totally submitted in one cassette. C - Received in fixative is one container labeled with the patient's name and designated GE junction biopsy. The specimen consists of two irregular fragments of [place] waters soft tissue that in aggregate measure 0.6 x 0.3 x 0.1 cm. The specimen is totally submitted in one cassette. D - Received in fixative is one container labeled with the patient's name and designated biopsy proximal esophagus polypoid region. The specimen consists of one irregular fragment of [place] soft tissue that measures 0.6 x 0.3 x 0.1 cm. The specimen is totally submitted in one cassette. E - Received in fixative is one container labeled with the patient's name and designated biopsy rectal polyp. The specimen consists of one irregular fragment of light waters soft tissue that measures 0.3 x 0.2 x 0.1 cm. The specimen is totally submitted in one cassette. / SJ:rg 10/18/2021 TC:3 CPT: 55159 x5, 99049
--- NOTE | 2021-10-18 07:32 | PCM.HP.BLA ---
History and Physical Date of Admission: 10/18/21 Date of Service:? 09/06/21 MR#: [id number] Acct: [id number] Name:PATRICE MIJARES Rep #: [id number] : 1950 ? ? Provider: Dr. Bernard Witt MD Age/Sex:? 70/M ? ? Location: [facility] Status: Signed Intake Vital Signs ? 09/06/2208:16 Height 5 ft 10 in Weight: 160 lb BMI 22.9 BP 131/71 H Blood Pressure Location Rt brachial Position Sitting Respiration 18 Intake Visit Reasons:?COLONOSCOPY Chief Complaint: Nausea/vomiting Allergies codeine Allergy (Verified 09/06/21 09:16) Shortness of breathlisinopril Allergy (Verified 09/06/21 09:16) Shortness of breath Medications gabapentin 400 mg capsule 800 mg PO BIDCM 02/02/13 [History Confirmed 09/06/21] tramadol 50 mg tablet 100 mg PO BID 02/16/13 [History Confirmed 02/22/21] aspirin 325 mg tablet 325 mg PO DAILY@0800 #30 tabs 11/03/14 [Rx Confirmed 09/06/21] tiotropium bromide 18 mcg capsule with inhalation device 1 mcg inhalation DAILY 01/26/18 [History Confirmed 09/06/21] atorvastatin 40 mg tablet 20 mg PO QDAY #90 tabs 05/22/18 [Rx Confirmed 09/06/21] nitroglycerin 0.4 mg sublingual tablet 0.4 mg sublingual Q5M PRN Chest Pain #25 tabs 05/22/18 [Rx Confirmed 09/06/21] omeprazole 40 mg capsule,delayed release 40 mg PO DAILY PRN 07/09/19 [History Confirmed 09/06/21] carvedilol 25 mg tablet 12.5 mg PO BID #90 tabs 11/08/20 [Rx Confirmed 09/06/21] isosorbide mononitrate 30 mg tablet,extended release 24 hr 30 mg PO DAILY 02/27/21 [History Confirmed 09/06/21] amlodipine 5 mg tablet 5 mg PO DAILY #90 tabs 07/17/21 [Rx Confirmed 09/06/21] clopidogrel 75 mg tablet 75 mg PO DAILY #90 tabs 08/13/21 [Rx Confirmed 09/06/21] PFSH Medical History? Abdominal pain Acute exacerbation of chronic obstructive airways disease Arthritis Atherosclerotic heart disease of [place] coronary artery without angina pectoris Back pain Benign essential hypertension Bilateral carotid artery stenosis Bilateral carotid bruits Chronic obstructive lung disease DJD (degenerative joint disease) Fibromyalgia GERD (gastroesophageal reflux disease) H/o addiction H/o blood transfusion Heart disease Hepatitis C Hiatal hernia HLD (hyperlipidemia) HTN (hypertension) Lung disease Nonrheumatic aortic (valve) stenosis Obstructive sleep apnea Peripheral artery disease Renal artery stenosis Restless legs Right arm weakness Right leg weakness Surgical History? History of back surgery History of stent insertion of renal artery Postsurgical percutaneous transluminal coronary angioplasty (PTCA) status (~03/2011) Presence of stent in coronary artery (~03/2011) Family History? Brother Tonsil cancer Cancer ?? ? Skin DiabetesSister Breast cancer DiabetesMother?? Diabetes Hypertension CAD (coronary artery disease) Myocardial infarctionBrother CAD (coronary artery disease) Myocardial infarction CardiomyopathyFather Cancer Social History? household members:? spouse housing:? house current occupational status:? employed Smoking Status:? Former smoker alcohol intake:? never substance use type:? marijuana and other details: h/o addiction caffeine:? Yes what type of physical activity do you participate in:? walking frequency:? 5-6 times per week seatbelt use:? always do you feel safe at home:? Yes HPI HPI HPI: PATRICE LOVETT, is a 70 M who presents to the office today for need to schedule surveillance colonoscopy secondary to history of polyps and duration since prior scope.? They are referred for surgical consultation from Dr. Catherine.? Patient has had prior colonoscopy in [address] Oconnell and a scope before this as well.? He states several polyps were found at both scopes, but he is unable to recall when his follow-up scope was to be obtained.? Patient has a personal history of diverticulitis some 30 years ago, but adds no antibiotics or hospital stay were required and he has done well since.? He states dietary changes have been noriega to this improvement.? They describe their bowel habits as relatively normal with a frequency of 2-3 bowel movements weekly.? They are soft and formed in character.? They spend roughly 10-20 minutes on the toilet without significant straining.? They have not noticed recent bleeding or dark stools for a very long time, but there is a history of 3 prior hemorrhoidectomy procedures.? Patient has no family history of inflammatory bowel disease or colon cancer, specifically. ? However, he reports that his father of widely metastatic cancer of the abdomen and he is unable to communicate with the primary tumor was in that case. ? The patient's weight is stable at 158-160 pounds for the last 6 to 7 years. Patient has a history of gastroesophageal reflux disease.? He is prescribed omeprazole, but takes this only as needed.? He states that he now has only very infrequent episodes of heartburn and believes he has had 1 prior EGD over 20 years ago. The patient is prescribed aspirin and Plavix for a history of coronary stents.? He reports that he is due for a follow-up with cardiology tomorrow.? He also has a history of carotid artery stenosis and reports his last carotid duplex was in June 2019. Relevant prior abdominal surgical history includes: Not applicable Lastly patient is a former tobacco user and quit back in 1999. ROS General General: No weight change, appetite, fatigue, colon cancer, breast cancer or weakness HEENT HEENT: Yes eye injury and eye surgery; No difficulty swallowing, swollen glands or hoarseness Endo Endocrine: No thyroid disease, diabetes mellitus, thyroid cancer, Hair loss, heat intolerance or cold intolerance Skin Skin: No rash or changing moles Breast Breast: No left breast lump, right breast lump, nipple discharge, breast pain, abnormal mammogram, abnormal US or breast enlargement Musc Musculoskeletal: Yes back problems and arthritis; No rheumatoid arthritis, gout or joint pain Cardio Cardiovascular: Yes murmur, high blood pressure and heart stent; No pacemaker, heart disease, atrial fibrillation, heart attack, palpitations, shortness of breat with exertion or chest pain Psych Psychiatric: No depression, anxiety or hearing voices Resp Respiratory: No shortness of breath, Yes sleep apnea, No cough, Yes COPD, No asthma, No emphysema and No wheezing Gastro Gastrointestinal: No abdominal pain, No nausea or vomiting, No diarrhea, No constipation, No blood in stool, No acid reflux, No hemorrhoids, No ulcers, No gallbladder problem and No black,tarry stools Devyn Hematologic: Yes blood thinners, No blood disorders, No bleeding, No anemia and No blood clots Neuro Neurologic: No system reviewed and no additional complaints, except as documented, No as per HPI, No abnormal gait, No abnormal hearing, No abnormal movements, No abnormal speech, No behavioral changes, No burning sensations, No confusion, No convulsions, No disequilibrium, No dizziness, No localized weakness, No frequent falls, No headache(s), No lack of coordination, No loss of vision, No memory loss, Yes numbness, No other visual disturbances, No radicular pain, No restless legs, No sensory deficit, No syncope, Yes tingling, No tremor(s), No weakness and No other Exam Const General: cooperative, healthy appearing, comfortable and no acute distress Orientation: alert, awake and oriented x3 Resp Effort & Inspection: normal respiratory effort Cardio Heart Sounds: murmur systolic GI Other: Not obese, no scars, nondistended.? Soft, nontender to palpation x4 quadrants.? No hernias. Assessment and Plan Assessment and Plan (1) Bilateral carotid artery stenosis: ?Status:?Acute ?Comment: Patient with bilateral carotid artery stenosis, but most recent carotid duplex showed stenoses less than 50% bilaterally.? Still, this imaging is over 2 years old and will inquire with cardiology as whether they recommend repeat study prior to undertaking endoscopy. ?Plan: ? Follow-up with cardiology when they recommend repeat carotid duplex prior to endoscopy (2) Presence of stent in coronary artery: ?Status:?Chronic ?Comment: PTCA/Stent to CFX 03/2011.? Patient due for cardiology follow-up tomorrow.? We will request ability to hold aspirin and Plavix in anticipation of colonoscopy/EGD ?Plan: -? request ability to hold aspirin and Plavix in anticipation of colonoscopy/EGD (3) Colon polyps: ?Status:?Acute ?Comment: This is a 70-year-old male with history of 2 prior colonoscopies and polyps found in each exam.? He denies any remarkable pathology findings with this, but we will seek original reports.? Given that it has been 11 years since his last colonoscopy, it is reasonable to schedule for repeat surveillance endoscopy.? I have discussed with him the need to complete a bowel prep in advance of his procedure and have asked him to do an extra day of clear liquids given his history of less frequent bowel movements.? I have also counseled him on the need to present for the procedure with a pile driver operator and that any pathology results will be delayed by necessary processing like time.? We will plan to schedule once we have appropriate cardiac clearance. ?Plan: ? Surveillance colonoscopy under local MAC (proceeded with 2 days of clears during prep) provided appropriate cardiac clearance is obtained and patient is able to hold Plavix for 7 days prior to the procedure (4) Chronic heartburn: ?Status:?Acute ?Comment: A 70-year-old male with longstanding history of reflux symptoms on PPI history of tobacco use.? He reports a remote history of diagnostic EGD over 20 years ago.? I shared with him that it would be in his best interest to repeat this investigation while under sedation for a colonoscopy given his increased risk for Foley's esophagus/esophageal carcinoma.? He expresses understanding of this recommendation and wished to proceed as described. ?Plan: ? EGD under local MAC in concert with colonoscopy as above provided necessary preoperative cardiac clearance I have examined the patient the following changes are noted: Patient completed his prep following a period of clear liquids since Friday morning. Still AC nursing noted that he was reporting some brown liquid stools on his arrival. Therefore, a soapsuds enema was administered and patient now reports that his output is clear.He complains of some mild nausea this morning, but states this has been an isolated incidence. Otherwise he denies any frequent reflux episodes or changes to his bowel habits.We will proceed with surveillance EGD and colonoscopy under local MAC as previously planned.
--- NOTE | 2021-10-18 09:18 | OP.EGD_ITS ---
Patient Name: Elbert Vergara Procedure Date: 10/18/2021 7:22 AM Date of : 1950 Age: 70 Procedure: Upper GI endoscopy Indications: Gastro-esophageal reflux disease Providers: Bernard Witt MD Medicines: Monitored Anesthesia Care Patient Profile: Refer to note in patient chart for documentation of history and physical. Patient has symptoms of chronic heartburn. Complications: No immediate complications. Estimated blood loss: Minimal. Procedure: Pre-Anesthesia Assessment: - The heart rate, respiratory rate, oxygen saturations, blood pressure, adequacy of pulmonary ventilation, and response to care were monitored throughout the procedure. After obtaining informed consent, the endoscope was passed under direct vision. Throughout the procedure, the patient's blood pressure, pulse, and oxygen saturations were monitored continuously. The Colonoscope was introduced through the mouth, and advanced to the second part of duodenum. The upper GI endoscopy was accomplished without difficulty. The patient tolerated the procedure well. Scope In: 7:41:29 AM Scope Withdrawal Time 0 hours 0 minutes 3 seconds Scope Out: 8:00:33 AM Total Procedure Duration Time 0 hours 19 minutes 4 seconds Findings: The duodenal bulb, first portion of the duodenum and second portion of the duodenum were normal. No biopsies or other specimens were collected for this exam. Localized mild inflammation characterized by erythema was found in the gastric antrum. Biopsies were taken with a cold forceps for histology. Biopsies were taken with a cold forceps for Helicobacter pylori cultures. Estimated blood loss was minimal. White nummular lesions were noted in the lesser curvature of the stomach. Biopsies were taken with a cold forceps for histology. Estimated blood loss was minimal. The cardia and gastric fundus were normal on retroflexion. The Z-line was variable and was found 39 cm from the incisors. Biopsies were taken with a cold forceps for histology. Estimated blood loss was minimal. The lower third of the esophagus was moderately tortuous. No biopsies or other specimens were collected for this exam. A few 6 mm polyps with no bleeding were found 30 cm from the incisors. Biopsies were taken with a cold forceps for histology. Estimated blood loss was minimal. Impression: - Normal duodenal bulb, first portion of the duodenum and second portion of the duodenum. No specimens collected. - Gastritis. Biopsied. - White nummular lesions in gastric mucosa. Biopsied. - Z-line variable, 39 cm from the incisors. Biopsied. - Tortuous esophagus. - Esophageal polyp(s) were found. Biopsied. Recommendation: - Discharge patient to home (via wheelchair). - Resume regular diet today. - Use Prilosec (omeprazole) 20 mg PO daily today. - Await pathology results. - Telephone my office for pathology results in 1 week. - Continue present medications. Procedure Code(s): --- Professional --- 54568, Esophagogastroduodenoscopy, flexible, transoral; with biopsy, single or multiple Diagnosis Code(s): --- Professional --- K29.70, Gastritis, unspecified, without bleeding K31.89, Other diseases of stomach and duodenum K22.8, Other specified diseases of esophagus Q39.9, Congenital malformation of esophagus, unspecified K21.9, Gastro-esophageal reflux disease without esophagitis CPT copyright 2017 [employer]. All rights reserved. The codes documented in this report are preliminary and upon hazardous waste management specialist review may be revised to meet current compliance requirements. Bernard Witt MD 10/18/2021 9:18:08 AM This report has been signed electronically. Number of Addenda: 0 Note Initiated On: 10/18/2021 7:22 AM
--- NOTE | 2021-10-18 09:19 | OP.CCLET_ITS ---
10/18/2021 Beulah Catherine [address] [facility] [place] [address] Re : Upper GI endoscopy procedure for Elbert Vergara Dear Dr. Cahterine This procedure was performed on September. My impressions and recommendations are as follows: Impressions : - Normal duodenal bulb, first portion of the duodenum and second portion of the duodenum. No specimens collected. - Gastritis. Biopsied. - White nummular lesions in gastric mucosa. Biopsied. - Z-line variable, 39 cm from the incisors. Biopsied. - Tortuous esophagus. - Esophageal polyp(s) were found. Biopsied. Recommendations : - Discharge patient to home (via wheelchair). - Resume regular diet today. - Use Prilosec (omeprazole) 20 mg PO daily today. - Await pathology results. - Telephone my office for pathology results in 1 week. - Continue present medications. My findings are described in the full procedure note, which is enclosed. If I can be of further assistance, please feel free to contact me at Doctor phone number(s): , Work: . Sincerely, Bernard Witt MD 10/18/2021 9:18:08 AM This report has been signed electronically.
--- NOTE | 2021-10-18 09:31 | OP.CCLET_ITS ---
10/18/2021 Beulah Catherine [address] [place] [address] Re : Colonoscopy procedure for Elbert Jai Dear Dr. Catherine This procedure was performed on September. My impressions and recommendations are as follows: Impressions : - Diverticulosis in the sigmoid colon. No specimens collected. - One 5 mm polyp in the rectum. Biopsied. - The examination was otherwise normal on direct and retroflexion views. Recommendations : - Discharge patient to home (via wheelchair). - Resume regular diet today. - Continue present medications. - Await pathology results. - Repeat colonoscopy in 3 years for surveillance based on pathology results. - Telephone my office for pathology results in 1 week. My findings are described in the full procedure note, which is enclosed. If I can be of further assistance, please feel free to contact me at Doctor phone number(s): , Work: . Sincerely, Bernard Witt MD 10/18/2021 9:31:30 AM This report has been signed electronically.
--- NOTE | 2021-10-18 09:31 | OP.COLON_ITS ---
Patient Name: Elbert Vergara Procedure Date: 10/18/2021 8:00 AM Date of : 1950 Age: 70 Procedure: Colonoscopy Indications: High risk colon cancer surveillance: Personal history of colonic polyps Providers: Bernard Witt MD Medicines: See the Anesthesia note for documentation of the administered medications Patient Profile: Refer to note in patient chart for documentation of history and physical. Patient has symptoms of chronic heartburn. Last Colonoscopy: more than 10 years ago. [Pathology Results] were found on the previous colonoscopy. [Type] and [Size]. [Polypectomy]. [Resection & Retrieval]. Complications: No immediate complications. Estimated blood loss: Minimal. Procedure: Pre-Anesthesia Assessment: - The heart rate, respiratory rate, oxygen saturations, blood pressure, adequacy of pulmonary ventilation, and response to care were monitored throughout the procedure. - The heart rate, respiratory rate, oxygen saturations, blood pressure, adequacy of pulmonary ventilation, and response to care were monitored throughout the procedure. After I obtained informed consent, the scope was passed under direct vision. Throughout the procedure, the patient's blood pressure, pulse, and oxygen saturations were monitored continuously. The Colonoscope was introduced through the anus and advanced to the cecum, identified by appendiceal orifice and ileocecal valve. The colonoscopy was technically difficult and complex due to poor bowel prep with stool present. Successful completion of the procedure was aided by lavage. The patient tolerated the procedure well. Scope In: 8:01:58 AM Scope Withdrawal Time 0 hours 37 minutes 0 seconds Scope Out: 9:04:38 AM Total Procedure Duration Time 1 hour 2 minutes 40 seconds Findings: Many small and large-mouthed diverticula were found in the sigmoid colon. No biopsies or other specimens were collected for this exam. A 5 mm polyp was found in the rectum. The polyp was semi-sessile. Biopsies were taken with a cold forceps for histology. Estimated blood loss was minimal. The exam was otherwise without abnormality on direct and retroflexion views. Impression: - Diverticulosis in the sigmoid colon. No specimens collected. - One 5 mm polyp in the rectum. Biopsied. - The examination was otherwise normal on direct and retroflexion views. Recommendation: - Discharge patient to home (via wheelchair). - Resume regular diet today. - Continue present medications. - Await pathology results. - Repeat colonoscopy in 3 years for surveillance based on pathology results. - Telephone my office for pathology results in 1 week. Procedure Code(s): --- Professional --- 47142, Colonoscopy, flexible; with biopsy, single or multiple Diagnosis Code(s): --- Professional --- Z86.010, Personal history of colonic polyps K62.1, Rectal polyp K57.30, Diverticulosis of large intestine without perforation or abscess without bleeding CPT copyright 2017 [employer]. All rights reserved. The codes documented in this report are preliminary and upon human resource management instructor review may be revised to meet current compliance requirements. Bernard Witt MD 10/18/2021 9:31:30 AM This report has been signed electronically. Number of Addenda: 0 Note Initiated On: 10/18/2021 8:00 AM
== END 2021-10-18 09:52 | disposition home or self-care (01) ==
LOC: EN 06:17 → AC 06:18
PROVIDERS: PCP Family Medicine; Referring Provider Family Medicine; Visit Provider Surgery
PROC: 0DJD8ZZ Inspection of Lower Intestinal Tract, Via Natural or Artificial Opening Endoscopic (ICD-10-PCS; CPT 45378; principal; 2021-10-18 07:25)
DX: Z12.11 Encounter for screening for malignant neoplasm of colon (principal); J44.9 Chronic obstructive pulmonary disease, unspecified; K62.1 Rectal polyp; K57.30 Diverticulosis of large intestine without perforation or abscess without bleeding; K21.00 Gastro-esophageal reflux disease with esophagitis, without bleeding; K22.81 Esophageal polyp; G47.33 Obstructive sleep apnea (adult) (pediatric); I25.10 Atherosclerotic heart disease of native coronary artery without angina pectoris; F12.90 Cannabis use, unspecified, uncomplicated; I10 Essential (primary) hypertension; E78.5 Hyperlipidemia, unspecified; Q39.9 Congenital malformation of esophagus, unspecified; K29.50 Unspecified chronic gastritis without bleeding; Z79.82 Long term (current) use of aspirin; Z79.899 Other long term (current) drug therapy; Z95.5 Presence of coronary angioplasty implant and graft; Z87.891 Personal history of nicotine dependence; Z79.01 Long term (current) use of anticoagulants; Z86.010 Personal history of colon polyps
CPT/HCPCS: 43239; 45380; 88305; 88313; 88342; J7120; J2405

== ENCOUNTER → 2022-04-05 | Outpatient (CLI) | payer MEDICARE, SELFPAY ==
[2022-04-05 10:54] LABS: AST(SGOT) 13 U/L (15-37); Alanine Aminotransfer ALT/SGPT 14 U/L (16-61); Albumin, Serum 3.7 g/dL (3.2-5.0); Alkaline Phosphatase 80 U/L (45-117); Bilirubin, Direct 0.22 mg/dL (0.00-0.30); Cholesterol 132 mg/dL (200); Globulin 3.4 g/dL (2.2-4.2); High Density Lipoprotein 53 mg/dL; Protein, Total 7.1 g/dL (6.4-8.2); Triglycerides 75 mg/dL; Very Low Density Lipoprotein 15 mg/dL (5-40)
== END | disposition home or self-care (01) ==
LOC: MTLAB 08:30
PROVIDERS: PCP Family Medicine; Referring Provider Internal Medicine Cardiovascular Disease; Visit Provider Internal Medicine Cardiovascular Disease
DX: E78.00 Pure hypercholesterolemia, unspecified (principal)
CPT/HCPCS: 36415; 80061; 80076

== ENCOUNTER → 2022-07-22 | Outpatient (CLI) | payer MEDICARE, SELFPAY ==
[2022-07-22 10:52] LABS: AST(SGOT) 18 U/L (15-37); Alanine Aminotransfer ALT/SGPT 21 U/L (16-61); Albumin, Serum 3.6 g/dL (3.2-5.0); Alkaline Phosphatase 79 U/L (45-117); Bilirubin, Direct 0.16 mg/dL (0.00-0.30); Cholesterol 124 mg/dL (200); Globulin 3.7 g/dL (2.2-4.2); High Density Lipoprotein 51 mg/dL; Protein, Total 7.3 g/dL (6.4-8.2); Triglycerides 77 mg/dL; Very Low Density Lipoprotein 15 mg/dL (5-40)
== END | disposition home or self-care (01) ==
LOC: MTLAB 07:59
PROVIDERS: PCP Family Medicine; Referring Provider Internal Medicine Cardiovascular Disease; Visit Provider Internal Medicine Cardiovascular Disease
DX: E78.00 Pure hypercholesterolemia, unspecified (principal)
CPT/HCPCS: 36415; 80061; 80076

== ENCOUNTER → 2022-10-23 | Outpatient (CLI) | payer MEDICARE, SELFPAY ==
[2022-10-23 12:22] LABS: Absolute Lymphocyte Count 2.25 X10^3/uL (0.83-4.51); Absolute Neutrophil Count 5.9 X10^3/uL (2.0-7.7); Basophil# 0.09 X10^3/uL; Basophil% 0.9 % (0-1); Eosinophils% 3.1 % (0-5); Hematocrit 44.9 % (40-54); Hemoglobin 14.6 g/dL (13.0-16.5); Lymphocyte # 2.25 X10^3/ul (0.83-4.51); Lymphocyte % 23.5 % (19-41); Mean Corp Hgb Conc 32.5 g/dL (32-36); Mean Corpuscular Hgb 30.1 pg (27.0-32.0); Mean Corpuscular Volume 92.6 fL (80-94); Mean Platelet Vol. 9.7 fl (6.2-12.0); Monocyte# 0.92 X10^3/uL; Monocyte% 9.6 % (0-10); NRBC Flagged by Analyzer 0 % (0-5); Neutrophil # 5.94 X10^3/uL (2.7-7.7); Neutrophil % 62.2 % (47-70); Platelet Count 175 K/mm3 (150-450); RBC Distribution Width CV 14.6 % (11.6-14.6); RBC Distribution Width SD 49.7 fl (35.1-43.9); Red Blood Count 4.85 M/mm3 (4.6-6.2); White Blood Count 9.6 K/mm3 (4.4-11.0)
[2022-10-23 12:56] LABS: Vitamin B12 346 pg/mL (211-911)
[2022-10-23 13:11] LABS: AST(SGOT) 15 U/L (15-37); Alanine Aminotransfer ALT/SGPT 20 U/L (16-61); Albumin, Serum 3.6 g/dL (3.2-5.0); Alkaline Phosphatase 80 U/L (45-117); Anion Gap 6 (5-15); BUN 7 mg/dL (7-18); BUN/Creat Ratio 6.9 RATIO (10-20); Chloride 103 mmol/L (98-107); Creatinine, Serum 1.01 mg/dL (0.70-1.30); EST Glomerular Filtration Rate 77 mL/min (>60); Est Glom Filt Rate - Afr Amer 93 mL/min (>60); Ferritin 72 ng/mL (26-388); Globulin 3.7 g/dL (2.2-4.2); Glucose 73 mg/dL (74-106); Iron 64 ug/dL (65-175); Potassium 4.5 mmol/L (3.5-5.1); Protein, Total 7.3 g/dL (6.4-8.2); Sodium Level 137 mmol/L (136-145)
== END | disposition home or self-care (01) ==
LOC: BFHLAB 10:01
PROVIDERS: PCP Family Medicine; Referring Provider Family Medicine; Visit Provider Family Medicine
DX: G62.9 Polyneuropathy, unspecified (principal); E78.5 Hyperlipidemia, unspecified; E53.8 Deficiency of other specified B group vitamins; E50.9 Vitamin A deficiency, unspecified
CPT/HCPCS: 36415; 80053; 82607; 82728; 83540; 85025

== ENCOUNTER → 2022-12-16 | Outpatient (CLI) | payer MEDICARE, SELFPAY ==
--- NOTE | 2022-12-16 10:43 | ECHOD_ITS ---
Reason For Study: Murmur Procedure This was a 2D Doppler, Color Flow transthoracic echocardiogram. Exam performed in department. Left Ventricle Normal LV size. Left ventricular systolic function is normal. The estimated ejection fraction is 65 %. Normal diastology for age. No regional wall motion abnormalities noted. Right Ventricle Normal RV size. Normal systolic function. Atria The left and right atria are normal. Mitral Valve There is Mild focal posterior mitral annular calcification. Mild focal mitral valve thickening. There is no mitral valve stenosis. Mild (1+) mitral valve insufficiency. Tricuspid Valve Normal tricuspid valve. Mild (1+) tricuspid valve insufficiency. Right ventricular systolic pressure estimated to be 34 mmHg. Aortic Valve Trisinus/trileaflet aortic valve. Moderate focal aortic valve thickening. Moderate focal aortic valve calcification. Moderate aortic stenosis. Peak aortic valve gradient 51 mmHg. Mean aortic valve gradient 30 mmHg. Mild (1+) eccentric aortic valve insufficiency. Pulmonic Valve Normal pulmonic valve. Mild (1+) pulmonic valve insufficiency. Great Vessels Normal aortic root. Pericardium/Pleural No pericardial effusion. MMode/2D Measurements & Calculations LVIDd: 4.3 cm IVSd: 1.1 cm LVOT diam: 2.0 cm LVIDs: 2.5 cm LVPWd: 0.87 cm LVOT area: 3.2 cm2 RVDd: 3.3 cm FS: 42.1 % Ao root diam: 3.3 cm LAV(MOD-bp): 50.0 ml LVAd ap4: 27.9 cm2 LA dimension: 3.4 cm LAV(MOD-bp) Indexed: 26.6 ml/m2 LVLd ap4: 8.4 cm LAV(MOD-sp2): 37.4 ml EDV(MOD-sp4): 75.5 ml LAV(MOD-sp4): 48.1 ml EDV(sp4-el): 78.5 ml LVAs ap4: 14.2 cm2 LVLs ap4: 6.7 cm ESV(MOD-sp4): 26.1 ml ESV(sp4-el): 25.6 ml EF(MOD-sp4): 65.4 % EF(sp4-el): 67.4 % SV(MOD-sp4): 49.4 ml SV(sp4-el): 52.9 ml Aortic Valve Planimetry: 0.97 cm2 LA A4 area: 19.0 cm2 RA A4 area: 14.1 cm2 TAPSE: 2.2 cm Time Measurements MV dec time: 0.26 sec Doppler Measurements & Calculations MV E max kenneth: 82.1 cm/sec Lat Peak E' Kenneth: 6.9 cm/sec Med Peak E' Kenneth: 8.6 cm/sec MV A max kenneth: 82.4 cm/sec E/E' lat: 11.9 E/E' med: 9.5 MV E/A: 1.00 MV V2 max: 93.9 cm/sec MV P1/2t max kenneth: 93.9 cm/sec Ao V2 max: 357.9 cm/sec MV max P.5 mmHg MV P1/2t: 88.9 msec Ao max P.4 mmHg MV V2 mean: 42.4 cm/sec Ao V2 mean: 260.7 cm/sec MV mean P.95 mmHg MV dec slope: 309.1 cm/sec2 Ao mean P.3 mmHg MV V2 VTI: 42.6 cm MVA(P1/2t): 2.5 cm2 Ao V2 VTI: 97.5 cm AV (velocity ratio): 0.31 MVA(VTI): 2.3 cm2 SHEKHAR(I,D): 1.0 cm2 SHEKHAR(V,D): 1.0 cm2 AI max kenneth: 286.2 cm/sec LV V1 max: 112.0 cm/sec MR max kenneth: 631.3 cm/sec AI max P.8 mmHg LV V1 max P.0 mmHg MR max P.4 mmHg LV V1 mean P.9 mmHg MR mean kenneth: 497.2 cm/sec AI dec slope: 75.8 cm/sec2 LV V1 mean: 80.3 cm/sec MR mean P.7 mmHg AI P1/2t: 1106 msec LV V1 VTI: 30.7 cm MR VTI: 260.1 cm SV(LVOT): 98.7 ml PA V2 max: 79.6 cm/sec PI dec slope: 79.1 cm/sec2 TR max kenneth: 276.0 cm/sec TR max P.5 mmHg ECHO/Echo Complete Interpretation Summary The estimated ejection fraction is 65 %. Mild (1+) mitral valve insufficiency. Mild (1+) tricuspid valve insufficiency. Moderate aortic stenosis. Mild (1+) eccentric aortic valve insufficiency. Ordering Physician: Almaz Evans Referring Physician: Almaz Evans Performed By: Selwyn Storey RCS
== END | disposition home or self-care (01) ==
LOC: CVS 10:41
PROVIDERS: PCP Family Medicine; Referring Provider Physician Assistant Medical; Visit Provider Physician Assistant Medical
DX: I25.10 Atherosclerotic heart disease of native coronary artery without angina pectoris (principal); I35.0 Nonrheumatic aortic (valve) stenosis
CPT/HCPCS: 93306

== ENCOUNTER → 2023-01-13 | Outpatient (CLI) | payer MEDICARE, SELFPAY ==
--- NOTE | 2023-01-13 10:52 | STRESSREP_ITS ---
Stress Test Report Date: 01/13/2023 Procedure: Pharmacologic stress nuclear imaging study Indications: Chest pain Consent: Per the patient Procedure: The patient underwent pharmacologic (Regadenoson 0.4mg ) evaluation with a peak heart rate of 76 beats per minute (51%predicted maximal heart rate) and a peak blood pressure of 160/80 mmHg. The baseline ECG demonstrated sinus rhythm. The peak pharmacologic ECG demonstrated no diagnostic ischemic changes. There were no cardiac dysrhythmias pretest, during pharmacologic infusion, or recovery. There was no complaint of chest discomfort during pharmacologic infusion or recovery. The patient was injected with 11.0 millicuries of technetium 99m Cardiolite and subsequently rest SPECT Cardiolite nuclear imaging was obtained in the horizontal long, vertical long, and short axis views. The patient underwent pharmacologic (Regadenoson) evaluation. The patient was injected with 35.6 millicuries of technetium 99m Cardiolite and subsequently stress SPECT Cardiolite nuclear imaging was obtained in the horizontal long, vertical long, and short axis views. A gated Cardiolite study at peak stress was obtained. The examination was stopped secondary to completion of protocol. Rest and stress SPECT Cardiolite nuclear imaging status post realignment, normalization, and attenuation correction demonstrate no fixed or reversible perfusion defect. There is end systolic thickening and brightening. The gated Cardiolite study demonstrates myocardial thickening and inward wall motion. The reported LVEF is 88%. Impression: 1. Pharmacologic (Regadenoson) evaluation 2. Peak pharmacologic ECG with no diagnostic ischemic changes. 3. There were no cardiac dysrhythmias pretest, during pharmacologic infusion, or recovery. 5. Rest and stress SPECT Cardiolite nuclear imaging demonstrate relative uniform tracer uptake and myocardial perfusion appearing within normal limits. 6. The gated Cardiolite study reports an LVEF of 88%. This note was generated with [employer] software. It may contain incorrect words, spelling, and punctuation that were not noted in checking the note before signing.
== END | disposition home or self-care (01) ==
LOC: CVS 06:20
PROVIDERS: PCP Family Medicine; Referring Provider Physician Assistant Medical; Visit Provider Physician Assistant Medical
DX: I25.10 Atherosclerotic heart disease of native coronary artery without angina pectoris (principal); R07.9 Chest pain, unspecified; R06.02 Shortness of breath
CPT/HCPCS: 78452; 93017; A9500; A4216; J2785

== ENCOUNTER → 2023-02-26 | Outpatient (CLI) | payer MEDICARE, SELFPAY ==
--- NOTE | 2023-02-26 06:43 | MRI_ITS ---
STUDY: MRI LUMBAR SPINE WITHOUT CONTRAST REASON FOR EXAM: Male, 72 years old. pain pain low back into bilat hips,numbness feet,,prev lumbar surgery 2011 TECHNIQUE: Standardized fat and water weighted pulse sequences were obtained in the sagittal and axial planes. COMPARISON: MRI the lumbar spine dated January 19, 2020. X-ray the lumbar spine dated January 29, 2020 FINDINGS: Normal lumbar lordosis. There is no substantial scoliosis. Normal conus medullaris that terminates at the T12-L1 level. Stable posterior fusion rods and pedicle screws and interbody graft at L4-L5. No visualized marrow edema or compression deformity or acute fracture. T12-L1: Normal endplates. Normal disc height, hydration and morphology. Normal bilateral facet joints. Normal central canal and bilateral lateral recesses. Normal bilateral intervertebral neural foramina. L1-2: Diffuse disc desiccation with mild disc space narrowing and slight annular bulging. Normal bilateral facet joints. Normal central canal and bilateral lateral recesses. Normal bilateral intervertebral neural foramina. L2-3: Diffuse disc desiccation with mild disc space narrowing and slight annular bulging. Normal bilateral facet joints. Normal central canal and bilateral lateral recesses. Normal bilateral intervertebral neural foramina. L3-4: Moderate disc space narrowing with minimal endplate spurring. No significant posterior disc herniation or bulging. Moderate facet joint hypertrophy. Moderate bilateral foraminal stenosis with nerve root compression. Normal central canal and bilateral lateral recesses. L4-5: Stable interbody graft. No posterior disc herniation or extrusions. Mild endplate degenerative changes. Posterior decompressive defect. Mild to moderate facet joint hypertrophy. Mild bilateral foraminal stenosis. Normal central canal and bilateral lateral recesses. L5-S1: Diffuse disc desiccation with mild to moderate disc space narrowing and slight annular bulging. Posterior surgical defects. Mild to moderate facet joint hypertrophy. Mild to moderate bilateral foraminal stenosis with nerve root impingement. Normal central canal and bilateral lateral recesses. Normal visualized sacral ala. There is mild paraspinal muscular atrophy. Rectosigmoid diverticulosis is present. MRI/Spine Lumbar (Routine) IMPRESSION: 1. Multilevel degenerative changes, as described above. 2. Moderate bilateral foraminal stenosis with nerve root compression at L3-L4 Electronically Signed: González Bush MD at 10:09 EST ,
== END | disposition home or self-care (01) ==
PROVIDERS: PCP Family Medicine; Referring Provider Orthopaedic Surgery Orthopaedic Surgery of the Spine; Visit Provider Orthopaedic Surgery Orthopaedic Surgery of the Spine
DX: M54.16 Radiculopathy, lumbar region (principal)
CPT/HCPCS: 72148

== ENCOUNTER → 2023-03-27 | Outpatient (CLI) | payer MEDICARE, SELFPAY ==
--- OUTSIDE RECORDS SUMMARY | 2023-03-27 06:27 | XMS RPT_ITS | CCD ---
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, Monroe Martinez Unavailable Yuliana Lema Unavailable Unavailable Allergies Allergy Classification Reported Allergen(s) Allergy Type Date of Onset Reaction(s) Facility (4 sources) codeine drug allergy 07-12-2010 rash and SOB [facility] Work Phone: (4 sources) lisinopril drug allergy 04-03-2011 facial redness [facility] Work Phone: Medications Completed/Discontinued Medications Medication Drug Class(es) Dates Sig (Normalized) Sig (Original) ALBUTEROL SULFATE (8 sources) beta2-Adrenergic Agonist Start: 03-29-2011 End: 04-10-2015 VENTOLIN HFA 108 (90 Base) MCG/ACT AERS As needed ALBUTEROL SULFATE [id number] Justine Concepcion RN Problems Active Problems Problem Classification Problem Date Documented Da te Episodic/Chronic Chronic obstructive pulmonary disease and bronchiectasis (4 sources) Chronic obstructive lung disease; Translations: [Chronic obstructive pulmonary disease, unspecified] 07-12-2010 Chronic Coronary atherosclerosis and other heart disease (12 sources) Angina pectoris; Translations: [Coronary arteriosclerosis] Onset: 04-03-2011 04-03-2011 Chronic Disorders of lipid metabolism (4 sources) Hyperlipidemia; Translations: [Hyperlipidemia, unspecified] Onset: 03-29-2011 03-29-2011 Chronic Essential hypertension (4 sources) Hypertensive disorder; Translations: [Essential (primary) hypertension] 07-12-2010 Chronic Osteoarthritis (4 sources) Degenerative joint disease involving multiple joints; Translations: [Polyosteoarthritis , unspecified] Onset: 07-12-2013 07-12-2013 Chronic Other lower respiratory disease (4 sources) Fibrosis of lung; Translations: [Pulmonary fibrosis, unspecified] Onset: 09-28-2013 09-28-2013 Chronic Other nervous system disorders (1 source) Claudication; Translations: [Peripheral vascular disease, unspecified] Onset: 01-31-2014 01-31-2014 Chronic Peripheral and visceral atherosclerosis (7 sources) Renal artery stenosis; Translations: [Claudication] Onset: 04-19-2011 04-19-2011 Chronic Unclassified (4 sources) Obstructive sleep apnea syndrome; Translations: [Obstructive sleep apnea (adult) (pediatric)] Onset: 07-12-2013 07-12-2013 Chronic Unclassified (2 sources) Long-term drug therapy; Translations: [Long-term (current) use of other medications] Onset: 07-17-2012 07-17-2012 Past or Other Problems Problem Classification Problem Date Documented Da te Episodic/Chronic Coronary atherosclerosis and other heart disease (4 sources) Coronary angioplasty status; Translations: [Coronary angioplasty status] Onset: 05-29-2011 05-29-2011 Episodic Heart valve disorders (4 sources) Heart murmur; Translations: [Cardiac murmur, unspecified] Onset: 04-03-2011 04-03-2011 Episodic Nonspecific chest pain (4 sources) Chest pain; Translations: [Chest pain, unspecified] Onset: 04-03-2011 04-03-2011 Episodic Other aftercare (6 sources) 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; Translations: [Long-term (current) use of other medications] Onset: 07-17-2012 04-11-2015 Episodic Other circulatory disease (4 sources) Carotid bruit; Translations: [Other specified symptoms and signs involving the circulatory and respiratory systems] Onset: 04-03-2011 04-03-2011 Episodic Other lower respiratory disease (7 sources) Dyspnea; Translations: [Cough] Onset: 07-12-2010 Resolved: 08-11-2010 04-03-2011 Episodic Other lower respiratory disease (1 source) Cough; Translations: [Cough] Onset: 07-12-2010 Resolved: 08-11-2010 07-12-2010 Episodic Other nutritional; endocrine; and metabolic disorders (17 sources) Body mass index (BMI) 25.0-25.9, adult; Translations: [Body mass index (BMI) 29.0-29.9, adult] Onset: 01-11-2013 Resolved: 04-11-2015 10-20-2015 Episodic Other nutritional; endocrine; and metabolic disorders (1 source) Body mass index (BMI) 27.0-27.9, adult; Translations: [Body mass index (BMI) 27.0-27.9, adult] Onset: 01-11-2013 01-11-2013 Episodic Other nutritional; endocrine; and metabolic disorders (2 sources) Body mass index (BMI) 29.0-29.9, adult; Translations: [Body mass index (BMI) 29.0-29.9, adult] Onset: 01-11-2013 Resolved: 04-11-2015 04-11-2015 Episodic Other upper respiratory infections (4 sources) Upper respiratory infection; Translations: [Acute upper respiratory infection, unspecified] Onset: 07-12-2010 Resolved: 08-02-2010 07-12-2010 Episodic Results Test Name Value Interpretation Reference Range Facil ity Vital Signs Date Time Vital Sign Value Performing Clinician Shannan jimenez 11-13-2016 09:14-0400 BMI (Body Mass Index) 24.16 kg/m2 Yuliana Lema [facility] Work Phone: 11-13-2016 09:14-0400 BP Diastolic 70 mm[Hg] Yuliana Pita [facility] Work Phone: 11-13-2016 09:14-0400 BP Systolic 112 mm[Hg] Yuliana Pita [facility] Work Phone: 11-13-2016 09:14-0400 Height 175.26 cm Yuliana Pita [facility] Work Phone: 11-13-2016 09:14-0400 Pulse (Heart Rate) 54 /min Yuliana Pita [facility] Work Phone: 11-13-2016 09:14-0400 Weight 74.21 kg Yuliana Pita [facility] Work Phone: 05-06-2016 15:21-0500 BMI (Body Mass Index) 23.33 kg/m2 Monroe [facility] Work Phone: 05-06-2016 15:21-0500 BP Diastolic 72 mm[Hg] Monroe Mckeon NP [facility] Work Phone: 05-06-2016 15:21-0500 BP Systolic 124 mm[Hg] Monroe Mckeon COAL BRIQUETTE MACHINE OPERATOR [facility] Work Phone: 05-06-2016 15:21-0500 BSA (Body Surface Area) 1.87 m2 Monroe Mckeon COAL BRIQUETTE MACHINE OPERATOR [facility] Work Phone: 05-06-2016 15:21-0500 Pulse (Heart Rate) 56 /min Monroe Mcekon COAL BRIQUETTE MACHINE OPERATOR [facility] Work Phone: 05-06-2016 15:21-0500 Respiratory Rate 16 /min Monroe Mckeon COAL BRIQUETTE MACHINE OPERATOR [facility] Work Phone: 05-06-2016 15:21-0500 Weight 71.67 kg Monroe Mckeon NP [facility] Work Phone: 05-17-2014 11:31-0500 Body Temperature 97.2 [degF] oMnroe Mckeon COAL BRIQUETTE MACHINE OPERATOR [facility] Work Phone: 12-28-2013 08:52-0400 Height 175.26 cm Monroe Mckeon COAL BRIQUETTE MACHINE OPERATOR [facility] Work Phone: 08-14-2011 12:15-0400 Heart rate 429 ms Yuliana Lema [facility] Work Phone: 08-14-2011 12:15-0400 Heart rate 55 /min Yuliana Lema [facility] Work Phone: 05-15-2011 12:41-0500 Pulse (Heart Rate) 68 /min Monreo Mckeon NP [facility] Work Phone: 07-12-2010 09:50-0400 BP Diastolic 96 mm[Hg] Monroe Mckeon COAL BRIQUETTE MACHINE OPERATOR [facility] Work Phone: 07-12-2010 09:50-0400 BP Systolic 146 mm[Hg] Monroe Mckeon COAL BRIQUETTE MACHINE OPERATOR [facility] Work Phone: Procedures Date Procedure Procedure Detail Performing Clinician Start: 11-13-2016 End: 11-13-2016 Follow Up Appt 6 months Monroe Martinez [facility] Work Phone: Start: 11-13-2016 End: 11-13-2016 PFM Monroe Martinez [facility] Work Phone: Start: 11-07-2016 End: 11-08-2016 *Hepatic Function Panel Almaz russo PA-C Work Phone: Start: 11-07-2016 End: 11-08-2016 Lipid panel [AGGREGATE] Almaz russo PA-C Work Phone: Start: 05-06-2016 End: 05-10-2016 *Hepatic Function Panel Grey Harry MD Start: 05-06-2016 End: 05-06-2016 Follow Up Appt 6 months Grey Harry MD Start: 05-06-2016 End: 05-10-2016 Lipid panel [AGGREGATE] Grey Harry MD Start: 05-06-2016 End: 05-06-2016 PFM Grey Harry MD Start: 04-24-2016 End: 05-22-2016 *Hepatic Function Panel Grey Harry MD Start: 04-24-2016 End: 05-22-2016 Lipid panel [AGGREGATE] Grey Harry MD Start: 01-19-2016 End: 01-30-2016 *Hepatic Function Panel Grey Harry MD Start: 01-19-2016 End: 01-30-2016 Lipid panel [AGGREGATE] Grey Harry MD Start: 12-13-2015 End: 12-13-2015 Follow Up BP Check Almaz Evans PA-C Work Phone: Start: 10-20-2015 End: 10-20-2015 Dietary management education, guidance, and counseling Yuliana Lema Start: 10-20-2015 End: 10-20-2015 *Hepatic Function Panel Grey Harry MD Start: 10-20-2015 End: 10-20-2015 Follow Up Appt 6 months Grey Harry MD Start: 10-20-2015 End: 10-23-2015 Lipid panel [AGGREGATE] Grey Harry MD Start: 10-20-2015 End: 10-20-2015 PFM Grey Harry MD Start: 10-10-2015 End: 10-23-2015 *Hepatic Function Panel Grey Harry MD Start: 10-10-2015 End: 10-20-2015 Lipid panel [AGGREGATE] Grey Harry MD Start: 04-10-2015 End: 04-11-2015 *Hepatic Function Panel Grey Harry MD Start: 04-10-2015 End: 04-11-2015 Lipid panel [AGGREGATE] Grey Harry MD Start: 04-28-2014 End: 04-11-2015 *Hepatic Function Panel Grey Harry MD Start: 04-28-2014 End: 04-11-2015 Lipid panel [AGGREGATE] Grey Harry MD Start: 01-17-2014 End: 01-17-2014 Follow Up Appt 6 months Grey Harry MD Start: 01-17-2014 End: 01-17-2014 Follow Up Appt Other Grey Harry MD Start: 01-17-2014 End: 01-17-2014 PFM Grey Harry MD Start: 2013 End: 10-25-2013 *Hepatic Function Panel Almaz russo PA-C Work Phone: Start: 2013 End: 10-25-2013 Lipid panel [AGGREGATE] Almaz russo PA-C Work Phone: Start: 07-12-2013 End: 07-12-2013 Follow Up Appt 6 months Almaz russo PA-C Work Phone: Start: 07-12-2013 End: 07-12-2013 PFM Almaz Evans PA-C Work Phone: Start: 04-24-2013 End: 05-10-2013 *Hepatic Function Panel Almaz russo PA-C Work Phone: Start: 04-24-2013 End: 05-10-2013 Lipid panel [AGGREGATE] Almaz russo PA-C Work Phone: Start: 01-11-2013 End: 06-29-2013 Carotid duplex Grey Harry MD Start: 01-11-2013 End: 06-29-2013 Echocardiography Grey Harry MD Start: 01-11-2013 End: 01-11-2013 Follow Up Appt 6 months Grey Harry MD Start: 01-11-2013 End: 01-11-2013 MMM Grey Harry MD Start: 09-21-2012 End: 10-26-2012 *Hepatic Function Panel Almaz russo PA-C Work Phone: Start: 09-21-2012 End: 10-26-2012 Lipid panel [AGGREGATE] Almaz russo PA-C Work Phone: Start: 07-16-2012 End: 07-16-2012 *Hepatic Function Panel Almaz russo PA-C Work Phone: Start: 07-16-2012 End: 07-16-2012 Follow Up Appt 6 months Almaz russo PA-C Work Phone: Start: 07-16-2012 End: 07-16-2012 Lipid panel [AGGREGATE] Almaz russo PA-C Work Phone: Start: 07-16-2012 End: 07-16-2012 PFM Almaz Evans PA-C Work Phone: Start: 12-16-2011 End: 07-15-2012 *Hepatic Function Panel Grey Harry MD Start: 12-16-2011 End: 12-16-2011 Follow Up Appt 6 months Grey Harry MD Start: 12-16-2011 End: 07-15-2012 Lipid panel [AGGREGATE] Grey Harry MD Start: 08-14-2011 End: 12-16-2011 *BMP Grey Harry MD Start: 08-14-2011 End: 12-16-2011 *CBC with Differential Grey Harry MD Start: 08-14-2011 End: 07-15-2012 Coagulation factor induced.INR assay in platelet poor plasma Grey Harry MD Start: 08-14-2011 End: 12-16-2011 Electrocardiogram, complete Grey gallagher MD Start: 08-14-2011 End: 12-16-2011 Follow Up Appt 3 months Grey Harry MD Start: 08-14-2011 End: 12-16-2011 Left Heart Cath Grey Harry MD Start: 05-29-2011 End: 08-21-2011 Cardiac Rehab Grey Harry MD Start: 05-15-2011 End: 06-12-2011 *Hepatic Function Panel Grey Harry MD Start: 05-15-2011 End: 05-15-2011 Follow Up Appt 3 months Grey Harry MD Start: 05-15-2011 End: 06-12-2011 Lipid panel [AGGREGATE] Grey Harry MD Start: 04-11-2011 End: 07-15-2012 Ct pelvis w/o dye Grey Harry MD Start: 04-04-2011 End: 07-15-2012 *24 hour urine for metanephrines Grey Harry MD Start: 04-03-2011 End: 08-16-2011 Carotid duplex Grey Harry MD Start: 04-03-2011 End: 08-16-2011 Echocardiography Grey Harry MD Start: 04-03-2011 End: 04-03-2011 Follow Up Appt 6 weeks Grey Harry MD Start: 04-03-2011 End: 04-04-2011 Follow Up Appt Other Grey Harry MD Start: 04-03-2011 End: 12-16-2011 Left Heart Cath Grey Harry MD Start: 04-03-2011 End: 08-16-2011 Renal doppler Grey Harry MD Plan of Treatment Date Care Activity Detail Author Start: 06-30-2017 End: 06-30-2017 Appointment Appointment [facility] Work Phone: Start: 06-09-2017 End: 11-22-2016 *Hepatic Function Panel *Hepatic Function Panel [facility] Work Phone: Start: 06-09-2017 End: 11-22-2016 Lipid panel [AGGREGATE] *Lipid Profile CC PCP [facility] Work Phone: Start: 11-13-2016 End: 11-13-2016 Appointment Appointment [facility] Work Phone: Start: 11-13-2016 End: 11-13-2016 Follow Up Appt 6 months Follow Up Appt 6 months [facility] Work Phone: Start: 11-13-2016 End: 11-13-2016 PFM PFM [facility] Work Phone: Start: 11-07-2016 End: 11-08-2016 *Hepatic Function Panel *Hepatic Function Panel [facility] Work Phone: Start: 11-07-2016 End: 11-08-2016 Lipid panel [AGGREGATE] *Lipid Profile CC PCP [facility] Work Phone: Start: 05-06-2016 End: 05-10-2016 *Hepatic Function Panel *Hepatic Function Panel [facility] Work Phone: Start: 05-06-2016 End: 05-06-2016 Follow Up Appt 6 months Follow Up Appt 6 months [facility] Work Phone: Start: 05-06-2016 End: 05-10-2016 Lipid panel [AGGREGATE] *Lipid Profile CC PCP [facility] Work Phone: Start: 05-06-2016 End: 05-06-2016 PFM PFM [facility] Work Phone: Start: 04-24-2016 End: 05-22-2016 *Hepatic Function Panel *Hepatic Function Panel [facility] Work Phone: Start: 04-24-2016 End: 05-22-2016 Lipid panel [AGGREGATE] *Lipid Profile CC PCP [facility] Work Phone: Start: 01-19-2016 End: 01-30-2016 *Hepatic Function Panel *Hepatic Function Panel [facility] Work Phone: Start: 01-19-2016 End: 01-30-2016 Lipid panel [AGGREGATE] *Lipid Profile CC PCP [facility] Work Phone: Start: 12-13-2015 End: 12-13-2015 Follow Up BP Check Follow Up BP Check [facility] Work Phone: Start: 10-20-2015 End: 10-20-2015 *Hepatic Function Panel *Hepatic Function Panel [facility] Work Phone: Start: 10-20-2015 End: 10-20-2015 Carotid duplex Carotid duplex [facility] Work Phone: Start: 10-20-2015 End: 10-20-2015 Follow Up Appt 6 months Follow Up Appt 6 months [facility] Work Phone: Start: 10-20-2015 End: 10-20-2015 Follow Up Appt Other Follow Up Appt Other [facility] Work Phone: Start: 10-20-2015 End: 10-23-2015 Lipid panel [AGGREGATE] *Lipid Profile CC PCP [facility] Work Phone: Start: 10-20-2015 End: 10-20-2015 PFM PFM [facility] Work Phone: Start: 10-10-2015 End: 10-23-2015 *Hepatic Function Panel *Hepatic Function Panel [facility] Work Phone: Start: 10-10-2015 End: 10-20-2015 Lipid panel [AGGREGATE] *Lipid Profile CC PCP [facility] Work Phone: Start: 04-10-2015 End: 04-11-2015 *Hepatic Function Panel *Hepatic Function Panel [facility] Work Phone: Start: 04-10-2015 End: 04-11-2015 Lipid panel [AGGREGATE] *Lipid Profile CC PCP [facility] Work Phone: Start: 04-10-2015 End: 04-10-2015 PFM PFM [facility] Work Phone: Start: 2014 End: 05-17-2014 Pulmonary Function Test - complete Pulmonary Function Test - complete [facility] Work Phone: Start: 05-17-2014 End: 05-17-2014 Follow Up Appt 6 months Follow Up Appt 6 months [facility] Work Phone: Start: 04-28-2014 End: 04-11-2015 *Hepatic Function Panel *Hepatic Function Panel [facility] Work Phone: Start: 04-28-2014 End: 04-11-2015 Lipid panel [AGGREGATE] *Lipid Profile CC PCP [facility] Work Phone: Start: 01-31-2014 End: 02-07-2014 Arterial exam Arterial exam [facility] Work Phone: Start: 01-17-2014 End: 01-17-2014 Follow Up Appt 6 months Follow Up Appt 6 months [facility] Work Phone: Start: 01-17-2014 End: 01-17-2014 Follow Up Appt Other Follow Up Appt Other [facility] Work Phone: Start: 01-17-2014 End: 01-17-2014 PFM PFM [facility] Work Phone: Start: 12-28-2013 End: 12-28-2013 Follow Up Appt 3 months Follow Up Appt 3 months [facility] Work Phone: Start: 12-28-2013 End: 12-28-2013 Pulmonary Fuction Test - complete Pulmonary Fuction Test - complete [facility] Work Phone: Start: 12-28-2013 End: 12-28-2013 Pulmonary stress test/simple Pulmonary stress testing; simple (eg, 6-minute walk) [facility] Work Phone: Start: 2013 End: 10-25-2013 *Hepatic Function Panel *Hepatic Function Panel [facility] Work Phone: Start: 2013 End: 10-25-2013 Lipid panel [AGGREGATE] *Lipid Profile CC PCP [facility] Work Phone: Start: 09-28-2013 End: 09-28-2013 Follow Up Appt 3 months Follow Up Appt 3 months [facility] Work Phone: Start: 09-28-2013 End: 09-28-2013 Pulmonary Fuction Test - complete Pulmonary Fuction Test - complete [facility] Work Phone: Start: 07-12-2013 End: 07-12-2013 Follow Up Appt 6 months Follow Up Appt 6 months [facility] [employer] Work Phone: Start: 07-12-2013 End: 07-12-2013 Follow Up Appt Other Follow Up Appt Other [facility] Work Phone: Start: 07-12-2013 End: 07-12-2013 PFM PFM [facility] Work Phone: Start: 04-24-2013 End: 05-10-2013 *Hepatic Function Panel *Hepatic Function Panel [facility] Work Phone: Start: 04-24-2013 End: 05-10-2013 Lipid panel [AGGREGATE] *Lipid Profile CC PCP [facility] Work Phone: Start: 01-11-2013 End: 01-12-2013 Carotid duplex Carotid duplex [facility] Work Phone: Start: 01-11-2013 End: 01-12-2013 Echocardiography Echocardiogram (complete) [facility] Work Phone: Start: 01-11-2013 End: 01-11-2013 Follow Up Appt 6 months Follow Up Appt 6 months [facility] Work Phone: Start: 01-11-2013 End: 01-11-2013 Follow Up Appt Other Follow Up Appt Other [facility] Work Phone: Start: 01-11-2013 End: 01-11-2013 MMM MMM [facility] Work Phone: Start: 09-21-2012 End: 07-17-2012 *Hepatic Function Panel *Hepatic Function Panel [facility] Work Phone: Start: 09-21-2012 End: 07-17-2012 Lipid panel [AGGREGATE] *Lipid Profile [facility] Work Phone: Start: 07-16-2012 End: 07-16-2012 *Hepatic Function Panel *Hepatic Function Panel [facility] Work Phone: Start: 07-16-2012 End: 07-16-2012 Follow Up Appt 6 months Follow Up Appt 6 months [facility] Work Phone: Start: 07-16-2012 End: 07-16-2012 Lipid panel [AGGREGATE] *Lipid Profile [facility] Work Phone: Start: 07-16-2012 End: 07-16-2012 PFM PFM [facility] Work Phone: Start: 12-16-2011 End: 07-15-2012 *Hepatic Function Panel *Hepatic Function Panel [facility] Work Phone: Start: 12-16-2011 End: 12-16-2011 Follow Up Appt 6 months Follow Up Appt 6 months [facility] Work Phone: Start: 12-16-2011 End: 07-15-2012 Lipid panel [AGGREGATE] *Lipid Profile [facility] Work Phone: Start: 08-14-2011 End: 12-16-2011 *BMP *BMP [facility] Work Phone: Start: 08-14-2011 End: 12-16-2011 *CBC with Differential *CBC with Differential [facility] [facility] Work Phone: Start: 08-14-2011 End: 07-15-2012 Coagulation factor induced.INR assay in platelet poor plasma [facility] Work Phone: Start: 08-14-2011 End: 12-16-2011 Electrocardiogram, complete EKG (In office) [facility] Work Phone: Start: 08-14-2011 End: 12-16-2011 Follow Up Appt 3 months Follow Up Appt 3 months [facility] Work Phone: Start: 08-14-2011 End: 08-14-2011 Left Heart Cath Left Heart Cath [facility] Work Phone: Start: 05-29-2011 End: 07-15-2012 Cardiac Rehab Cardiac Rehab [facility] Work Phone: Start: 05-15-2011 End: 06-12-2011 *Hepatic Function Panel *Hepatic Function Panel [facility] Work Phone: Start: 05-15-2011 End: 05-15-2011 Follow Up Appt 3 months Follow Up Appt 3 months [facility] Work Phone: Start: 05-15-2011 End: 06-12-2011 Lipid panel [AGGREGATE] *Lipid Profile [facility] Work Phone: Start: 04-11-2011 End: 04-12-2011 Ct pelvis w/o dye CT Pelvis [facility] Work Phone: Start: 04-04-2011 End: 07-15-2012 *24 hour urine for metanephrines *24 hour urine for metanephrines [facility] Work Phone: Start: 04-03-2011 End: 04-04-2011 Carotid duplex Carotid duplex [facility] Work Phone: Start: 04-03-2011 End: 04-04-2011 Echocardiography Echocardiogram (complete) [facility] Work Phone: Start: 04-03-2011 End: 04-03-2011 Follow Up Appt 6 weeks Follow Up Appt 6 weeks [facility] Work Phone: Start: 04-03-2011 End: 04-04-2011 Follow Up Appt Other Follow Up Appt Other [facility] Work Phone: Start: 04-03-2011 End: 04-04-2011 Left Heart Cath Left Heart Cath [facility] Work Phone: Start: 04-03-2011 End: 04-04-2011 Renal doppler Renal doppler [facility] Work Phone: Patient Education [facility] Work Phone: Additional Source Comments FOR RECORDS PERTAINING TO PATIENTS WHO ARE OR HAVE BEEN ENROLLED IN A CHEMICAL DEPENDENCY/SUBSTANCEABUSE PROGRAM, SOME INFORMATION MAY BE OMITTED. This clinical summary was aggregated from multiple sources. Caution should be exercised in using it in the provision of clinical care. This summary normalizes information from multiple sources, and as a consequence, information in this document may materially change the coding, format and clinical context of patient data. In addition, data may be omitted in some cases. CLINICAL DECISIONS SHOULD BE BASED ON THE PRIMARY CLINICAL RECORDS. [employer] [facility]. provides no warranty or guarantee of the accuracy or completeness of information in this document.
--- NOTE | 2023-03-27 06:34 | MRI_ITS ---
STUDY: MRI CERVICAL SPINE WITHOUT CONTRAST REASON FOR EXAM: Male, 72 years old. pain, disease of spinal cord TECHNIQUE: Standardized fat and water weighted pulse sequences were obtained in the sagittal and axial planes. COMPARISON: May 20, 2016 FINDINGS: Normal foramen magnum and brainstem-cervical cord junction. Normal craniovertebral junction. Normal anterior atlantoaxial articulation. Normal odontoid process. Normal cervical lordosis. Normal vertebral bodies and posterior osseous elements. C2-3: Normal endplates. Normal disc height, signal and morphology. Normal central canal and intervertebral neural foramina. C3-4: Normal endplates. Normal disc height, signal and morphology. Normal central canal and moderate right neural foraminal stenosis secondary to bony hypertrophy. C4-5: Normal endplates. Normal disc height, signal and tiny central disc/osteophyte protrusion.. Normal central canal and intervertebral neural foramina. C5-6: Narrowed disc space and minor endplate spurring.. Mild narrowing of the central canal and impingement upon the ventral surface of thecal sac and cord. Severe left neural foraminal stenosis secondary to bony hypertrophy C6-7: Narrowed disc space and minor bulging disc osteophyte complex with right foraminal disc/osteophyte protrusion. Minor narrowing the central canal. Severe right neural foraminal stenosis and moderate narrowing on the left secondary to bony hypertrophy. C7-T1: Grade 1 spondylolisthesis Normal endplates. Normal disc height, signal and minor bulging disc osteophyte complex Normal central canal and intervertebral neural foramina. Normal cervical cord. Normal visualized soft tissue structures. The spondylolisthesis at C7-T1 and C4-5 are new findings since prior exam. MRI/Spine Cervical (Routine) IMPRESSION: No evidence for acute fracture or other significant bony pathology. Mild spondylosis with mild interval progression since previous exam most severe at C5-6 and C6-7 Electronically Signed: Ifeanyi Christiansen MD at 19:56 EST ,
== END | disposition home or self-care (01) ==
LOC: MRI 06:25
PROVIDERS: PCP Family Medicine; Referring Provider Orthopaedic Surgery Orthopaedic Surgery of the Spine; Visit Provider Orthopaedic Surgery Orthopaedic Surgery of the Spine
DX: G95.9 Disease of spinal cord, unspecified (principal)
CPT/HCPCS: 72141

== ENCOUNTER → 2023-05-02 | Outpatient (CLI) | payer MEDICARE, SELFPAY ==
--- OUTSIDE RECORDS SUMMARY | 2023-05-02 12:32 | XMS RPT_ITS | CCD ---
Author Name Unknown Address [address] [place] [address] Organization [facility] Care Team Providers Care Technical Support Manager Name Role Phone TuckerIsacambreen Zhang Unavailable Unavailable Yuliana Lema Unavailable Unavailable Roof CATERING STAFF MEMBER, Monroe Martinez Unavailable Yuliana Lema Unavailable Unavailable Allergies Allergy Classification Reported Allergen(s) Allergy Type Date of Onset Reaction(s) Facility (4 sources) codeine drug allergy 07-12-2010 rash and SOB [facility] Work Phone: (4 sources) lisinopril drug allergy 04-03-2011 facial redness [facility] Work Phone: Medications Completed/Discontinued Medications Medication Drug Class(es) Dates Sig (Normalized) Sig (Original) ALBUTEROL SULFATE (8 sources) beta2-Adrenergic Agonist Start: 03-29-2011 End: 04-10-2015 VENTOLIN HFA 108 (90 Base) MCG/ACT AERS As needed ALBUTEROL SULFATE [id number] Justine Concepcion RN Problems Active Problems Problem [...] 04-03-2011 Episodic Other aftercare (6 sources) Other correction (current) drug therapy; Translations: [Long-term (current) use [...] BP Diastolic 72 mm[Hg] Monroe Mckeon NP [facility] Work Phone: 05-06-2016 15:21-0500 BP Systolic 124 mm[Hg] Monroe Mckeon CATERING STAFF MEMBER [facility] Work Phone: 05-06-2016 15:21-0500 BSA (Body Surface Area) 1.87 m2 Monroe Mckeon CATERING STAFF MEMBER [facility] Work Phone: 05-06-2016 15:21-0500 Pulse (Heart Rate) 56 /min Monroe Mckeon CATERING STAFF MEMBER [facility] Work Phone: 05-06-2016 15:21-0500 Respiratory Rate 16 /min Monroe Mckeon CATERING STAFF MEMBER [facility] Work Phone: 05-06-2016 15:21-0500 Weight 71.67 kg Monroe Mckeon NP [facility] Work Phone: 05-17-2014 11:31-0500 Body Temperature 97.2 [degF] Monroe Mckeon CATERING STAFF MEMBER [facility] Work Phone: 12-28-2013 08:52-0400 Height 175.26 cm Monroe Mckeon CATERING STAFF MEMBER [facility] Work Phone: 08-14-2011 12:15-0400 Heart rate 429 ms Yuliana Lema [facility] Work Phone: 08-14-2011 12:15-0400 Heart rate 55 /min Yuliana Lema [facility] Work Phone: 05-15-2011 12:41-0500 Pulse (Heart Rate) 68 /min Monroe Mckeon NP [facility] Work Phone: 07-12-2010 09:50-0400 BP Diastolic 96 mm[Hg] Monroe Mckeon CATERING STAFF MEMBER [facility] Work Phone: 07-12-2010 09:50-0400 BP Systolic 146 mm[Hg] Monroe Mckeon CATERING STAFF MEMBER [facility] Work Phone: Procedures Date Procedure [...] Author Start: 06-30-2017 End: 06-30-2017 Appointment Appointment [facility] Work Phone: Start: 06-09-2017 End: 11-22-2016 *Hepatic Function Panel *Hepatic Function Panel [facility] Work Phone: Start: 06-09-2017 End: 11-22-2016 Lipid panel [AGGREGATE] *Lipid Profile CC PCP [facility] Work Phone: Start: 11-13-2016 End: 11-13-2016 Appointment Appointment [facility] Work Phone: Start: 11-13-2016 End: 11-13-2016 Follow Up Appt 6 months Follow Up Appt 6 months [facility] Work Phone: Start: 11-13-2016 End: 11-13-2016 PFM PFM [facility] Work Phone: Start: 11-07-2016 End: 11-08-2016 *Hepatic Function Panel *Hepatic Function Panel [facility] Work Phone: Start: 11-07-2016 End: 11-08-2016 Lipid panel [AGGREGATE] *Lipid Profile CC PCP [facility] Work Phone: Start: 05-06-2016 End: 05-10-2016 *Hepatic Function Panel *Hepatic Function Panel [facility] Work Phone: Start: 05-06-2016 End: 05-06-2016 Follow Up Appt 6 months Follow Up Appt 6 months [facility] Work Phone: Start: 05-06-2016 End: 05-10-2016 Lipid panel [AGGREGATE] *Lipid Profile CC PCP [facility] Work Phone: Start: 05-06-2016 End: 05-06-2016 PFM PFM [facility] Work Phone: Start: 04-24-2016 End: 05-22-2016 *Hepatic Function Panel *Hepatic Function Panel [facility] Work Phone: Start: 04-24-2016 End: 05-22-2016 Lipid panel [AGGREGATE] *Lipid Profile CC PCP [facility] Work Phone: Start: 01-19-2016 End: 01-30-2016 *Hepatic Function Panel *Hepatic Function Panel [facility] Work Phone: Start: 01-19-2016 End: 01-30-2016 Lipid panel [AGGREGATE] *Lipid Profile CC PCP [facility] Work Phone: Start: 12-13-2015 End: 12-13-2015 Follow Up BP Check Follow Up BP Check [facility] Work Phone: Start: 10-20-2015 End: 10-20-2015 *Hepatic Function Panel *Hepatic Function Panel [facility] Work Phone: Start: 10-20-2015 End: 10-20-2015 Carotid duplex Carotid duplex [facility] Work Phone: Start: 10-20-2015 End: 10-20-2015 Follow Up Appt 6 months Follow Up Appt 6 months [facility] Work Phone: Start: 10-20-2015 End: 10-20-2015 Follow Up Appt Other Follow Up Appt Other [facility] Work Phone: Start: 10-20-2015 End: 10-23-2015 Lipid panel [AGGREGATE] *Lipid Profile CC PCP [facility] Work Phone: Start: 10-20-2015 End: 10-20-2015 PFM PFM [facility] Work Phone: Start: 10-10-2015 End: 10-23-2015 *Hepatic Function Panel *Hepatic Function Panel [facility] Work Phone: Start: 10-10-2015 End: 10-20-2015 Lipid panel [AGGREGATE] *Lipid Profile CC PCP [facility] Work Phone: Start: 04-10-2015 End: 04-11-2015 *Hepatic Function Panel *Hepatic Function Panel [facility] Work Phone: Start: 04-10-2015 End: 04-11-2015 Lipid panel [AGGREGATE] *Lipid Profile CC PCP [facility] Work Phone: Start: 04-10-2015 End: 04-10-2015 PFM PFM [facility] Work Phone: Start: 2014 End: 05-17-2014 Pulmonary Function Test - complete Pulmonary Function Test - complete [facility] Work Phone: Start: 05-17-2014 End: 05-17-2014 Follow Up Appt 6 months Follow Up Appt 6 months [facility] Work Phone: Start: 04-28-2014 End: 04-11-2015 *Hepatic Function Panel *Hepatic Function Panel [facility] Work Phone: Start: 04-28-2014 End: 04-11-2015 Lipid panel [AGGREGATE] *Lipid Profile CC PCP [facility] Work Phone: Start: 01-31-2014 End: 02-07-2014 Arterial exam Arterial exam [email or web address] Work Phone: Start: 01-17-2014 End: 01-17-2014 Follow Up Appt 6 months Follow Up Appt 6 months [facility] Work Phone: Start: 01-17-2014 End: 01-17-2014 Follow Up Appt Other Follow Up Appt Other [email or web address] Work Phone: Start: 01-17-2014 End: 01-17-2014 PFM PFM [email or web address] Work Phone: Start: 12-28-2013 End: 12-28-2013 Follow Up Appt 3 months Follow Up Appt 3 months [email or web address] Work Phone: Start: 12-28-2013 End: 12-28-2013 Pulmonary Fuction Test - complete Pulmonary Fuction Test - complete [email or web address] Work Phone: Start: 12-28-2013 End: 12-28-2013 Pulmonary stress test/simple Pulmonary stress testing; simple (eg, 6-minute walk) [email or web address] Work Phone: Start: 2013 End: 10-25-2013 *Hepatic Function Panel *Hepatic Function Panel [facility] Work Phone: Start: 2013 End: 10-25-2013 Lipid panel [AGGREGATE] *Lipid Profile CC PCP [email or web address] Work Phone: Start: 09-28-2013 End: 09-28-2013 Follow Up Appt 3 months Follow Up Appt 3 months [email or web address] Work Phone: Start: 09-28-2013 End: 09-28-2013 Pulmonary Fuction Test - complete Pulmonary Fuction Test - complete [email or web address] Work Phone: Start: 07-12-2013 End: 07-12-2013 Follow Up Appt 6 months Follow Up Appt 6 months [facility] Work Phone: Start: 07-12-2013 End: 07-12-2013 Follow Up Appt Other Follow Up Appt Other [email or web address] Work Phone: Start: 07-12-2013 End: 07-12-2013 PFM PFM [email or web address] Work Phone: Start: 04-24-2013 End: 05-10-2013 *Hepatic Function Panel *Hepatic Function Panel [email or web address] Work Phone: Start: 04-24-2013 End: 05-10-2013 Lipid panel [AGGREGATE] *Lipid Profile CC PCP [email or web address] Work Phone: Start: 01-11-2013 End: 01-12-2013 Carotid duplex Carotid duplex [email or web address] Work Phone: Start: 01-11-2013 End: 01-12-2013 Echocardiography Echocardiogram (complete) [email or web address] Work Phone: Start: 01-11-2013 End: 01-11-2013 Follow Up Appt 6 months Follow Up Appt 6 months [email or web address] Work Phone: Start: 01-11-2013 End: 01-11-2013 Follow Up Appt Other Follow Up Appt Other [email or web address] Work Phone: Start: 01-11-2013 End: 01-11-2013 MMM MMM [email or web address] Work Phone: Start: 09-21-2012 End: 07-17-2012 *Hepatic Function Panel *Hepatic Function Panel [email or web address] Work Phone: Start: 09-21-2012 End: 07-17-2012 Lipid panel [AGGREGATE] *Lipid Profile [facility] Work Phone: Start: 07-16-2012 End: 07-16-2012 *Hepatic Function Panel *Hepatic Function Panel [email or web address] Work Phone: Start: 07-16-2012 End: 07-16-2012 Follow Up Appt 6 months Follow Up Appt 6 months [facility] Work Phone: Start: 07-16-2012 End: 07-16-2012 Lipid panel [AGGREGATE] *Lipid Profile [email or web address] Work Phone: Start: 07-16-2012 End: 07-16-2012 PFM PFM [email or web address] Work Phone: Start: 12-16-2011 End: 07-15-2012 *Hepatic Function Panel *Hepatic Function Panel [facility] Work Phone: Start: 12-16-2011 End: 12-16-2011 Follow Up Appt 6 months Follow Up Appt 6 months [facility] Work Phone: Start: 12-16-2011 End: 07-15-2012 Lipid panel [AGGREGATE] *Lipid Profile [email or web address] Work Phone: Start: 08-14-2011 End: 12-16-2011 *BMP *BMP [email or web address] Work Phone: Start: 08-14-2011 End: 12-16-2011 *CBC with Differential *CBC with Differential [facility] Work Phone: Start: 08-14-2011 End: 07-15-2012 Coagulation factor induced.INR assay in platelet poor plasma [facility] Work Phone: Start: 08-14-2011 End: 12-16-2011 Electrocardiogram, complete EKG (In office) [facility] Work Phone: Start: 08-14-2011 End: 12-16-2011 Follow Up Appt 3 months Follow Up Appt 3 months [facility] Work Phone: Start: 08-14-2011 End: 08-14-2011 Left Heart Cath Left Heart Cath [email or web address] Work Phone: Start: 05-29-2011 End: 07-15-2012 Cardiac Rehab Cardiac Rehab [email or web address] Work Phone: Start: 05-15-2011 End: 06-12-2011 *Hepatic Function Panel *Hepatic Function Panel [facility] Work Phone: Start: 05-15-2011 End: 05-15-2011 Follow Up Appt 3 months Follow Up Appt 3 months [facility] Work Phone: Start: 05-15-2011 End: 06-12-2011 Lipid panel [AGGREGATE] *Lipid Profile [facility] Work Phone: Start: 04-11-2011 End: 04-12-2011 Ct pelvis w/o dye CT Pelvis [facility] Work Phone: Start: 04-04-2011 End: 07-15-2012 *24 hour urine for metanephrines *24 hour urine for metanephrines [facility] Work Phone: Start: 04-03-2011 End: 04-04-2011 Carotid duplex Carotid duplex [facility] Work Phone: Start: 04-03-2011 End: 04-04-2011 Echocardiography Echocardiogram (complete) [facility] Work Phone: Start: 04-03-2011 End: 04-03-2011 Follow Up Appt 6 weeks Follow Up Appt 6 weeks [facility] Work Phone: Start: 04-03-2011 End: 04-04-2011 Follow Up Appt Other Follow Up Appt Other [facility] Work Phone: Start: 04-03-2011 End: 04-04-2011 Left Heart Cath Left Heart Cath [facility] Work Phone: Start: 04-03-2011 End: 04-04-2011 Renal doppler Renal doppler [facility] Work Phone: Patient Education [facility] Work Phone: Additional Source Comments [...] BE BASED ON THE PRIMARY CLINICAL RECORDS. [facility]. provides no warranty or guarantee of the accuracy or completeness of information in this document.
[2023-05-02 12:44] VITALS: PULSE 63; PULSE 64; PULSE 69; PULSE 70; PULSE 71; PULSE 72; O2SAT 96; O2SAT 97; O2SAT 98
--- NOTE | 2023-05-05 13:00 | PCM.PSN.6M ---
PSN 6 Minute Walk Test 6 Minute Walk Test 6 Minute Walk Test: 6 Minute Walk Test PSN:6-Minute Walk Test Start: 05/02/23 12:44 Freq: Status: Active Protocol: [id number].6MINW Document 05/02/23 12:44 RUSLAN (Rec: 05/02/23 12:46 RUSLAN [id number]) 6 Minute Walk Test Date Performed 05/02/23 Time Performed 12:30 Height 5 ft 10 in Weight: 72.575 kg Weight in Pounds 160.[address]: Mauro Powers Assistive device used: None Pre-test Oxygen Delivery Method Room Air Pulse Ox 98 Pulse Rate (60-100) 63 Dyspnea Cynthia Scale (0-10) 0 Exertion Cynthia Scale (6-20) 6 1st minute Oxygen Delivery Method Room Air Pulse Ox 98 Pulse Rate (60-100) 70 2nd minute Oxygen Delivery Method Room Air Pulse Ox 97 Pulse Rate (60-100) 71 3rd minute Oxygen Delivery Method Room Air Pulse Ox 96 Pulse Rate (60-100) 70 4th minute Oxygen Delivery Method Room Air Pulse Ox 96 Pulse Rate (60-100) 69 5th minute Oxygen Delivery Method Room Air Pulse Ox 97 Pulse Rate (60-100) 70 6th minute Oxygen Delivery Method Room Air Pulse Ox 97 Pulse Rate (60-100) 72 Dyspnea Cynthia Scale (0-10) 3 Exertion Cynthia Scale (6-20) 13 Post-test Oxygen Delivery Method Room Air Pulse Ox 97 Pulse Rate (60-100) 64 Full Laps Walked 15 Partial Lap, Number of Tiles Walked 46 Total Distance Walked (ft) 931 Interpretation Interpretation: The patient was able to ambulate 931 feet over the course of 6 minutes on room air with no assistive devices or breaks. The patient experienced no significant desaturation or tachycardia. These findings are consistent with a musculoskeletal limitation to exercise tolerance. Recommendations Recommendations: No supplemental oxygen is indicated at this time.
== END | disposition home or self-care (01) ==
LOC: PSN 12:13
PROVIDERS: PCP Family Medicine; Visit Provider Internal Medicine Critical Care Medicine
DX: J44.9 Chronic obstructive pulmonary disease, unspecified (principal)
CPT/HCPCS: 94618

== ENCOUNTER → 2023-05-07 | Outpatient (CLI) | payer MEDICARE, SELFPAY ==
--- OUTSIDE RECORDS SUMMARY | 2023-05-07 14:58 | XMS RPT_ITS | CCD ---
Author Name Unknown Address [address] [place] [address] Organization [facility] Care Team Providers Care Surgical Technician Name Role Phone TuckreIsacambreen Zhang Unavailable Unavailable Yuliana Lema Unavailable Unavailable Roof DIRECTOR REGULATORY AFFAIRS, Monroe Martinez Unavailable Yuliana Lema Unavailable Unavailable Allergies Allergy Classification Reported Allergen(s) Allergy Type Date of Onset Reaction(s) Facility (4 sources) codeine drug allergy 07-12-2010 rash and SOB [facility] Work Phone: (4 sources) lisinopril drug allergy 04-03-2011 facial redness [facility] Work Phone: Medications Completed/Discontinued Medications Medication Drug Class(es) Dates Sig (Normalized) Sig (Original) ALBUTEROL SULFATE (8 sources) beta2-Adrenergic Agonist Start: 03-29-2011 End: 04-10-2015 VENTOLIN HFA 108 (90 Base) MCG/ACT AERS As needed ALBUTEROL SULFATE [id number] Justine Concepcion RN Problems Active Problems Problem [...] 04-03-2011 Episodic Other aftercare (6 sources) Other detention (current) drug therapy; Translations: [Long-term (current) use [...] BP Diastolic 72 mm[Hg] Monroe Mckeon NP [facility] Work Phone: 05-06-2016 15:21-0500 BP Systolic 124 mm[Hg] Monroe Mckeon DIRECTOR REGULATORY AFFAIRS [facility] Work Phone: 05-06-2016 15:21-0500 BSA (Body Surface Area) 1.87 m2 Monroe Mckeon DIRECTOR REGULATORY AFFAIRS [facility] Work Phone: 05-06-2016 15:21-0500 Pulse (Heart Rate) 56 /min Monroe Mckeon DIRECTOR REGULATORY AFFAIRS [facility] Work Phone: 05-06-2016 15:21-0500 Respiratory Rate 16 /min Monroe Mckeon DIRECTOR REGULATORY AFFAIRS [facility] Work Phone: 05-06-2016 15:21-0500 Weight 71.67 kg Monroe Mckeon NP [facility] Work Phone: 05-17-2014 11:31-0500 Body Temperature 97.2 [degF] Monroe Mckeon DIRECTOR REGULATORY AFFAIRS [facility] Work Phone: 12-28-2013 08:52-0400 Height 175.26 cm Monroe Mckeon DIRECTOR REGULATORY AFFAIRS [facility] Work Phone: 08-14-2011 12:15-0400 Heart rate 429 ms Yuliana Lema [facility] Work Phone: 08-14-2011 12:15-0400 Heart rate 55 /min Yuliana Lema [facility] Work Phone: 05-15-2011 12:41-0500 Pulse (Heart Rate) 68 /min Monroe Mckeon NP [facility] Work Phone: 07-12-2010 09:50-0400 BP Diastolic 96 mm[Hg] Monroe Mckeon DIRECTOR REGULATORY AFFAIRS [facility] Work Phone: 07-12-2010 09:50-0400 BP Systolic 146 mm[Hg] Monroe Mckeon DIRECTOR REGULATORY AFFAIRS [facility] Work Phone: Procedures Date Procedure [...] Author Start: 06-30-2017 End: 06-30-2017 Appointment Appointment [facility] Work Phone: Start: 06-09-2017 End: 11-22-2016 *Hepatic Function Panel *Hepatic Function Panel [facility] Work Phone: Start: 06-09-2017 End: 11-22-2016 Lipid panel [AGGREGATE] *Lipid Profile CC PCP [facility] Work Phone: Start: 11-13-2016 End: 11-13-2016 Appointment Appointment [facility] Work Phone: Start: 11-13-2016 End: 11-13-2016 Follow Up Appt 6 months Follow Up Appt 6 months [facility] Work Phone: Start: 11-13-2016 End: 11-13-2016 PFM PFM [facility] Work Phone: Start: 11-07-2016 End: 11-08-2016 *Hepatic Function Panel *Hepatic Function Panel [facility] Work Phone: Start: 11-07-2016 End: 11-08-2016 Lipid panel [AGGREGATE] *Lipid Profile CC PCP [facility] Work Phone: Start: 05-06-2016 End: 05-10-2016 *Hepatic Function Panel *Hepatic Function Panel [facility] Work Phone: Start: 05-06-2016 End: 05-06-2016 Follow Up Appt 6 months Follow Up Appt 6 months [facility] Work Phone: Start: 05-06-2016 End: 05-10-2016 Lipid panel [AGGREGATE] *Lipid Profile CC PCP [facility] Work Phone: Start: 05-06-2016 End: 05-06-2016 PFM PFM [facility] Work Phone: Start: 04-24-2016 End: 05-22-2016 *Hepatic Function Panel *Hepatic Function Panel [facility] Work Phone: Start: 04-24-2016 End: 05-22-2016 Lipid panel [AGGREGATE] *Lipid Profile CC PCP [facility] Work Phone: Start: 01-19-2016 End: 01-30-2016 *Hepatic Function Panel *Hepatic Function Panel [facility] Work Phone: Start: 01-19-2016 End: 01-30-2016 Lipid panel [AGGREGATE] *Lipid Profile CC PCP [facility] Work Phone: Start: 12-13-2015 End: 12-13-2015 Follow Up BP Check Follow Up BP Check [facility] Work Phone: Start: 10-20-2015 End: [...] Up Appt Other Follow Up Appt Other [facility] Work Phone: Start: 10-20-2015 End: 10-23-2015 Lipid panel [AGGREGATE] *Lipid Profile CC PCP [facility] Work Phone: Start: 10-20-2015 End: 10-20-2015 PFM PFM [facility] Work Phone: Start: 10-10-2015 End: 10-23-2015 *Hepatic Function Panel *Hepatic Function Panel [facility] Work Phone: Start: 10-10-2015 End: 10-20-2015 Lipid panel [AGGREGATE] *Lipid Profile CC PCP [facility] Work Phone: Start: 04-10-2015 End: 04-11-2015 *Hepatic Function Panel *Hepatic Function Panel [facility] Work Phone: Start: 04-10-2015 End: 04-11-2015 Lipid panel [AGGREGATE] *Lipid Profile CC PCP [facility] Work Phone: Start: 04-10-2015 End: [...] 01-31-2014 End: 02-07-2014 Arterial exam Arterial exam [facility] Work Phone: Start: 01-17-2014 End: 01-17-2014 Follow Up Appt 6 months Follow Up Appt 6 months [facility] Work Phone: Start: 01-17-2014 End: 01-17-2014 Follow Up Appt Other Follow Up Appt Other [facility] Work Phone: Start: 01-17-2014 End: 01-17-2014 PFM PFM [facility] Work Phone: Start: 12-28-2013 End: 12-28-2013 Follow Up Appt 3 months Follow Up Appt 3 months [facility] Work Phone: Start: 12-28-2013 End: 12-28-2013 Pulmonary Fuction Test - complete Pulmonary Fuction Test - complete [facility] Work Phone: Start: 12-28-2013 End: 12-28-2013 Pulmonary stress test/simple Pulmonary stress testing; simple (eg, 6-minute walk) [facility] Work Phone: Start: 2013 End: 10-25-2013 *Hepatic Function Panel *Hepatic Function Panel [facility] Work Phone: Start: 2013 End: 10-25-2013 Lipid panel [AGGREGATE] *Lipid Profile CC PCP [facility] Work Phone: Start: 09-28-2013 End: 09-28-2013 Follow Up Appt 3 months Follow Up Appt 3 months [facility] Work Phone: Start: 09-28-2013 End: 09-28-2013 Pulmonary Fuction Test - complete Pulmonary Fuction Test - complete [facility] Work Phone: Start: 07-12-2013 End: 07-12-2013 Follow Up Appt 6 months Follow Up Appt 6 months [facility] Work Phone: Start: 07-12-2013 End: 07-12-2013 Follow Up Appt Other Follow Up Appt Other [facility] Work Phone: Start: 07-12-2013 End: 07-12-2013 PFM PFM [facility] Work Phone: Start: 04-24-2013 End: 05-10-2013 *Hepatic Function Panel *Hepatic Function Panel [facility] Work Phone: Start: 04-24-2013 End: 05-10-2013 Lipid panel [AGGREGATE] *Lipid Profile CC PCP [facility] Work Phone: Start: 01-11-2013 End: 01-12-2013 Carotid duplex Carotid duplex [facility] Work Phone: Start: 01-11-2013 End: 01-12-2013 Echocardiography Echocardiogram (complete) [facility] Work Phone: Start: 01-11-2013 End: 01-11-2013 Follow Up Appt 6 months Follow Up Appt 6 months [facility] Work Phone: Start: 01-11-2013 End: 01-11-2013 Follow Up Appt Other Follow Up Appt Other [facility] Work Phone: Start: 01-11-2013 End: 01-11-2013 MMM MMM [facility] Work Phone: Start: 09-21-2012 End: 07-17-2012 *Hepatic Function Panel *Hepatic Function Panel [facility] Work Phone: Start: 09-21-2012 End: 07-17-2012 Lipid panel [AGGREGATE] *Lipid Profile [facility] Work Phone: Start: 07-16-2012 End: 07-16-2012 *Hepatic Function Panel *Hepatic Function Panel [facility] Work Phone: Start: 07-16-2012 End: 07-16-2012 Follow Up Appt 6 months Follow Up Appt 6 months [facility] Work Phone: Start: 07-16-2012 End: 07-16-2012 Lipid panel [AGGREGATE] *Lipid Profile [facility] Work Phone: Start: 07-16-2012 End: 07-16-2012 PFM PFM [facility] Work Phone: Start: 12-16-2011 End: 07-15-2012 *Hepatic Function Panel *Hepatic Function Panel [facility] Work Phone: Start: 12-16-2011 End: 12-16-2011 Follow Up Appt 6 months Follow Up Appt 6 months [facility] Work Phone: Start: 12-16-2011 End: 07-15-2012 Lipid panel [AGGREGATE] *Lipid Profile [facility] Work Phone: Start: 08-14-2011 End: 12-16-2011 *BMP *BMP [facility] Work Phone: Start: 08-14-2011 End: 12-16-2011 *CBC with Differential *CBC with Differential [facility] Work Phone: Start: 08-14-2011 End: 07-15-2012 Coagulation factor induced.INR assay in platelet poor plasma [facility] Work Phone: Start: 08-14-2011 End: 12-16-2011 Electrocardiogram, complete EKG (In office) [facility] Work Phone: Start: 08-14-2011 End: 12-16-2011 Follow Up Appt 3 months Follow Up Appt 3 months [facility] Work Phone: Start: 08-14-2011 End: 08-14-2011 Left Heart Cath Left Heart Cath [facility] Work Phone: Start: 05-29-2011 End: 07-15-2012 Cardiac Rehab Cardiac Rehab [facility] Work Phone: Start: 05-15-2011 End: 06-12-2011 *Hepatic Function Panel *Hepatic Function Panel [facility] Work Phone: Start: 05-15-2011 End: 05-15-2011 Follow Up Appt 3 months Follow Up Appt 3 months [facility] Work Phone: Start: 05-15-2011 End: 06-12-2011 Lipid panel [AGGREGATE] *Lipid Profile [facility] Work Phone: Start: 04-11-2011 End: 04-12-2011 Ct pelvis w/o dye CT Pelvis [facility] Work Phone: Start: 04-04-2011 End: 07-15-2012 *24 hour urine for metanephrines *24 hour urine for metanephrines [facility] Work Phone: Start: 04-03-2011 End: 04-04-2011 Carotid duplex Carotid duplex [facility] Work Phone: Start: 04-03-2011 End: 04-04-2011 Echocardiography Echocardiogram (complete) [facility] Work Phone: Start: 04-03-2011 End: 04-03-2011 Follow Up Appt 6 weeks Follow Up Appt 6 weeks [facility] Work Phone: Start: 04-03-2011 End: 04-04-2011 Follow Up Appt Other Follow Up Appt Other [facility] Work Phone: Start: 04-03-2011 End: 04-04-2011 Left Heart Cath Left Heart Cath [facility] Work Phone: Start: 04-03-2011 End: 04-04-2011 Renal doppler Renal doppler [facility] Work Phone: Patient Education Ev[facility] [...] BE BASED ON THE PRIMARY CLINICAL RECORDS. [employer] [facility]. provides no warranty or guarantee of the accuracy or completeness of information in this document.
[2023-05-07 18:08] LABS: Hepatitis B Surface Antigen Non-Reactive (Nonreactive)
[2023-05-09 19:07] LABS: HCV Quant. RNA PCR HCV Not Detected IU/mL (.); Hepatitis A IgM Antibody Negative (Negative)
== END | disposition home or self-care (01) ==
LOC: BFHLAB 13:23
PROVIDERS: PCP Family Medicine; Visit Provider Family Medicine
DX: R76.8 Other specified abnormal immunological findings in serum (principal); B18.2 Chronic viral hepatitis C
CPT/HCPCS: 36415; 86709; 87340; 87522

== ENCOUNTER → 2023-05-07 | Outpatient (CLI) | payer MEDICARE, SELFPAY ==
--- OUTSIDE RECORDS SUMMARY | 2023-05-07 06:48 | XMS RPT_ITS | CCD ---
Author Name Unknown Address [address] [place] [address] Organization [facility] Care Team Providers Care Durable Medical Equipment Technician Name Role Phone TuckerIsacambreen Zhang Unavailable Unavailable Yuliana Lema Unavailable Unavailable Roof HIDE SHAKER, Monroe Martinez Unavailable Yuliana Lema Unavailable Unavailable Allergies Allergy Classification Reported Allergen(s) Allergy Type Date of Onset Reaction(s) Facility (4 sources) codeine drug allergy 07-12-2010 rash and SOB [facility] Work Phone: (4 sources) lisinopril drug allergy 04-03-2011 facial redness [facility] Work Phone: Medications Completed/Discontinued Medications Medication Drug Class(es) Dates Sig (Normalized) Sig (Original) ALBUTEROL SULFATE (8 sources) beta2-Adrenergic Agonist Start: 03-29-2011 End: 04-10-2015 VENTOLIN HFA 108 (90 Base) MCG/ACT AERS As needed ALBUTEROL SULFATE [id number] Justine Concepcion RN Problems Active Problems Problem [...] 04-03-2011 Episodic Other aftercare (6 sources) Other care home (current) drug therapy; Translations: [Long-term (current) use [...] BP Diastolic 72 mm[Hg] Monroe Mckeon NP [facility] Work Phone: 05-06-2016 15:21-0500 BP Systolic 124 mm[Hg] Monroe Mckeon HIDE SHAKER [facility] Work Phone: 05-06-2016 15:21-0500 BSA (Body Surface Area) 1.87 m2 Monroe Mckeon HIDE SHAKER [facility] Work Phone: 05-06-2016 15:21-0500 Pulse (Heart Rate) 56 /min Monroe Mckeon HIDE SHAKER [facility] Work Phone: 05-06-2016 15:21-0500 Respiratory Rate 16 /min Monroe Mckeon HIDE SHAKER [facility] Work Phone: 05-06-2016 15:21-0500 Weight 71.67 kg Monroe Mckeon NP [facility] Work Phone: 05-17-2014 11:31-0500 Body Temperature 97.2 [degF] Monroe Mckeon HIDE SHAKER [facility] Work Phone: 12-28-2013 08:52-0400 Height 175.26 cm Monroe Mckeon HIDE SHAKER [facility] Work Phone: 08-14-2011 12:15-0400 Heart rate 429 ms Yuliana Lema [facility] Work Phone: 08-14-2011 12:15-0400 Heart rate 55 /min Yuliana Lema [facility] Work Phone: 05-15-2011 12:41-0500 Pulse (Heart Rate) 68 /min Monroe Mckeon NP [facility] Work Phone: 07-12-2010 09:50-0400 BP Diastolic 96 mm[Hg] Monroe Mckeon HIDE SHAKER [facility] Work Phone: 07-12-2010 09:50-0400 BP Systolic 146 mm[Hg] Monroe Mckeon HIDE SHAKER [facility] Work Phone: Procedures Date Procedure [...] induced.INR assay in platelet poor plasma Grey aHrry MD Start: 08-14-2011 End: 12-16-2011 Electrocardiogram, complete [...] Author Start: 06-30-2017 End: 06-30-2017 Appointment Appointment [facility] Work Phone: Start: 06-09-2017 End: 11-22-2016 *Hepatic Function Panel *Hepatic Function Panel [facility] Work Phone: Start: 06-09-2017 End: 11-22-2016 Lipid panel [AGGREGATE] *Lipid Profile CC PCP [facility] Work Phone: Start: 11-13-2016 End: 11-13-2016 Appointment Appointment [facility] Work Phone: Start: 11-13-2016 End: 11-13-2016 Follow Up Appt 6 months Follow Up Appt 6 months [facility] Work Phone: Start: 11-13-2016 End: 11-13-2016 PFM PFM [facility] Work Phone: Start: 11-07-2016 End: 11-08-2016 *Hepatic Function Panel *Hepatic Function Panel [facility] Work Phone: Start: 11-07-2016 End: 11-08-2016 Lipid panel [AGGREGATE] *Lipid Profile CC PCP [facility] Work Phone: Start: 05-06-2016 End: 05-10-2016 *Hepatic Function Panel *Hepatic Function Panel [facility] Work Phone: Start: 05-06-2016 End: 05-06-2016 Follow Up Appt 6 months Follow Up Appt 6 months [facility] Work Phone: Start: 05-06-2016 End: 05-10-2016 Lipid panel [AGGREGATE] *Lipid Profile CC PCP [facility] Work Phone: Start: 05-06-2016 End: 05-06-2016 PFM PFM [facility] Work Phone: Start: 04-24-2016 End: 05-22-2016 *Hepatic Function Panel *Hepatic Function Panel [facility] Work Phone: Start: 04-24-2016 End: 05-22-2016 Lipid panel [AGGREGATE] *Lipid Profile CC PCP [facility] Work Phone: Start: 01-19-2016 End: 01-30-2016 *Hepatic Function Panel *Hepatic Function Panel [facility] Work Phone: Start: 01-19-2016 End: 01-30-2016 Lipid panel [AGGREGATE] *Lipid Profile CC PCP [facility] Work Phone: Start: 12-13-2015 End: 12-13-2015 Follow Up BP Check Follow Up BP Check [facility] Work Phone: Start: 10-20-2015 End: [...] Up Appt Other Follow Up Appt Other [facility] Work Phone: Start: 10-20-2015 End: 10-23-2015 Lipid panel [AGGREGATE] *Lipid Profile CC PCP [facility] Work Phone: Start: 10-20-2015 End: 10-20-2015 PFM PFM [facility] Work Phone: Start: 10-10-2015 End: 10-23-2015 *Hepatic Function Panel *Hepatic Function Panel [facility] Work Phone: Start: 10-10-2015 End: 10-20-2015 Lipid panel [AGGREGATE] *Lipid Profile CC PCP [facility] Work Phone: Start: 04-10-2015 End: 04-11-2015 *Hepatic Function Panel *Hepatic Function Panel [facility] Work Phone: Start: 04-10-2015 End: 04-11-2015 Lipid panel [AGGREGATE] *Lipid Profile CC PCP [facility] Work Phone: Start: 04-10-2015 End: 04-10-2015 PFM PFM [facility] Work Phone: Start: 2014 End: 05-17-2014 Pulmonary Function Test - complete Pulmonary Function Test - complete [facility] Work Phone: Start: 05-17-2014 End: 05-17-2014 Follow Up Appt 6 months Follow Up Appt 6 months [facility] Work Phone: Start: 04-28-2014 End: 04-11-2015 *Hepatic Function Panel *Hepatic Function Panel [facility] Work Phone: Start: 04-28-2014 End: 04-11-2015 Lipid panel [AGGREGATE] *Lipid Profile CC PCP [facility] Work Phone: Start: 01-31-2014 End: 02-07-2014 Arterial exam Arterial exam [facility] Work Phone: Start: 01-17-2014 End: 01-17-2014 Follow Up Appt 6 months Follow Up Appt 6 months [facility] Work Phone: Start: 01-17-2014 End: 01-17-2014 Follow Up Appt Other Follow Up Appt Other [facility] Work Phone: Start: 01-17-2014 End: 01-17-2014 PFM PFM [facility] Work Phone: Start: 12-28-2013 End: 12-28-2013 Follow Up Appt 3 months Follow Up Appt 3 months [facility] Work Phone: Start: 12-28-2013 End: 12-28-2013 Pulmonary Fuction Test - complete Pulmonary Fuction Test - complete [facility] Work Phone: Start: 12-28-2013 End: 12-28-2013 Pulmonary stress test/simple Pulmonary stress testing; simple (eg, 6-minute walk) [facility] Work Phone: Start: 2013 End: 10-25-2013 *Hepatic Function Panel *Hepatic Function Panel [facility] Work Phone: Start: 2013 End: 10-25-2013 Lipid panel [AGGREGATE] *Lipid Profile CC PCP [facility] Work Phone: Start: 09-28-2013 End: 09-28-2013 Follow Up Appt 3 months Follow Up Appt 3 months [facility] Work Phone: Start: 09-28-2013 End: 09-28-2013 Pulmonary Fuction Test - complete Pulmonary Fuction Test - complete [facility] Work Phone: Start: 07-12-2013 End: 07-12-2013 Follow Up Appt 6 months Follow Up Appt 6 months [facility] Work Phone: Start: 07-12-2013 End: 07-12-2013 Follow Up Appt Other Follow Up Appt Other [facility] Work Phone: Start: 07-12-2013 End: 07-12-2013 PFM PFM [facility] Work Phone: Start: 04-24-2013 End: 05-10-2013 *Hepatic Function Panel *Hepatic Function Panel [facility] Work Phone: Start: 04-24-2013 End: 05-10-2013 Lipid panel [AGGREGATE] *Lipid Profile CC PCP [facility] Work Phone: Start: 01-11-2013 End: 01-12-2013 Carotid duplex Carotid duplex [facility] Work Phone: Start: 01-11-2013 End: 01-12-2013 Echocardiography Echocardiogram (complete) [facility] Work Phone: Start: 01-11-2013 End: 01-11-2013 Follow Up Appt 6 months Follow Up Appt 6 months [facility] Work Phone: Start: 01-11-2013 End: 01-11-2013 Follow Up Appt Other Follow Up Appt Other [facility] Work Phone: Start: 01-11-2013 End: 01-11-2013 MMM MMM [facility] Work Phone: Start: 09-21-2012 End: 07-17-2012 *Hepatic Function Panel *Hepatic Function Panel [facility] Work Phone: Start: 09-21-2012 End: 07-17-2012 Lipid panel [AGGREGATE] *Lipid Profile [facility] Work Phone: Start: 07-16-2012 End: 07-16-2012 *Hepatic Function Panel *Hepatic Function Panel [facility] Work Phone: Start: 07-16-2012 End: 07-16-2012 Follow Up Appt 6 months Follow Up Appt 6 months [facility] Work Phone: Start: 07-16-2012 End: 07-16-2012 Lipid panel [AGGREGATE] *Lipid Profile [facility] Work Phone: Start: 07-16-2012 End: 07-16-2012 PFM PFM [facility] Work Phone: Start: 12-16-2011 End: 07-15-2012 *Hepatic Function Panel *Hepatic Function Panel [facility] Work Phone: Start: 12-16-2011 End: 12-16-2011 Follow Up Appt 6 months Follow Up Appt 6 months [facility] Work Phone: Start: 12-16-2011 End: 07-15-2012 Lipid panel [AGGREGATE] *Lipid Profile [facility] Work Phone: Start: 08-14-2011 End: 12-16-2011 *BMP *BMP [facility] Work Phone: Start: 08-14-2011 End: 12-16-2011 *CBC with Differential *CBC with Differential [facility] Work Phone: Start: 08-14-2011 End: 07-15-2012 Coagulation factor induced.INR assay in platelet poor plasma [facility] Work Phone: Start: 08-14-2011 End: 12-16-2011 Electrocardiogram, complete EKG (In office) [facility] Work Phone: Start: 08-14-2011 End: 12-16-2011 Follow Up Appt 3 months Follow Up Appt 3 months [facility] Work Phone: Start: 08-14-2011 End: 08-14-2011 Left Heart Cath Left Heart Cath [facility] Work Phone: Start: 05-29-2011 End: 07-15-2012 Cardiac Rehab Cardiac Rehab [facility] Work Phone: Start: 05-15-2011 End: 06-12-2011 *Hepatic Function Panel *Hepatic Function Panel [facility] Work Phone: Start: 05-15-2011 End: 05-15-2011 Follow Up Appt 3 months Follow Up Appt 3 months [facility] Work Phone: Start: 05-15-2011 End: 06-12-2011 Lipid panel [AGGREGATE] *Lipid Profile [facility] Work Phone: Start: 04-11-2011 End: 04-12-2011 Ct pelvis w/o dye CT Pelvis [facility] Work Phone: Start: 04-04-2011 End: 07-15-2012 *24 hour urine for metanephrines *24 hour urine for metanephrines [facility] Work Phone: Start: 04-03-2011 End: 04-04-2011 Carotid duplex Carotid duplex [facility] Work Phone: Start: 04-03-2011 End: 04-04-2011 Echocardiography Echocardiogram (complete) [facility] Work Phone: Start: 04-03-2011 End: 04-03-2011 Follow Up Appt 6 weeks Follow Up Appt 6 weeks [facility] Work Phone: Start: 04-03-2011 End: 04-04-2011 Follow Up Appt Other Follow Up Appt Other [facility] Work Phone: Start: 04-03-2011 End: 04-04-2011 Left Heart Cath Left Heart Cath [facility] Work Phone: Start: 04-03-2011 End: 04-04-2011 Renal doppler Renal doppler [facility] Work Phone: Patient Education [facility] [...] BE BASED ON THE PRIMARY CLINICAL RECORDS. [employer] [facility]. provides no warranty or guarantee of the accuracy or completeness of information in this document.
== END | disposition home or self-care (01) ==
LOC: SL 06:46
PROVIDERS: PCP Family Medicine; Referring Provider Internal Medicine Critical Care Medicine; Visit Provider Internal Medicine Critical Care Medicine
DX: G47.33 Obstructive sleep apnea (adult) (pediatric) (principal); J44.9 Chronic obstructive pulmonary disease, unspecified
CPT/HCPCS: 94060; 94726; 94729; 95811

== ENCOUNTER → 2023-05-13 | Outpatient (CLI) | payer MEDICARE, SELFPAY | END | disposition home or self-care (01) | LOC: SL 13:30 | PROVIDERS: PCP Family Medicine; Visit Provider Internal Medicine Critical Care Medicine | DX: Z00.00 Encounter for general adult medical examination without abnormal findings (principal) ==

== ENCOUNTER 2023-05-14 05:27 | Inpatient (IN) | payer MEDICARE, SELFPAY ==
[2023-04-30 08:40] LABS: Absolute Lymphocyte Count 2.27 X10^3/uL (0.83-4.51); Absolute Neutrophil Count 5.2 X10^3/uL (2.0-7.7); Basophil# 0.09 X10^3/uL; Eosinophil# 0.22 X10^3/uL; Eosinophils% 2.5 % (0-5); Hematocrit 46.2 % (40-54); Hemoglobin 15.1 g/dL (13.0-16.5); Lymphocyte # 2.27 X10^3/ul (0.83-4.51); Lymphocyte % 25.8 % (19-41); Mean Corp Hgb Conc 32.7 g/dL (32-36); Mean Corpuscular Hgb 29.9 pg (27.0-32.0); Mean Corpuscular Volume 91.5 fL (80-94); Mean Platelet Vol. 9.6 fl (6.2-12.0); Monocyte# 0.94 X10^3/uL; Monocyte% 10.7 % (0-10); NRBC Flagged by Analyzer 0 % (0-5); Neutrophil % 59.1 % (47-70); Platelet Count 178 K/mm3 (150-450); RBC Distribution Width CV 13.8 % (11.6-14.6); RBC Distribution Width SD 46.5 fl (35.1-43.9); Red Blood Count 5.05 M/mm3 (4.6-6.2); White Blood Count 8.8 K/mm3 (4.4-11.0)
[2023-04-30 10:31] LABS: Anion Gap 3 (5-15); BUN 8 mg/dL (7-18); BUN/Creat Ratio 7.8 RATIO (10-20); Calcium,Total 9.4 mg/dL (8.5-10.1); Chloride 103 mmol/L (98-107); Creatinine, Serum 1.03 mg/dL (0.70-1.30); EST Glomerular Filtration Rate 75 mL/min (>60); Est Glom Filt Rate - Afr Amer 91 mL/min (>60); Glucose 92 mg/dL (74-106); Potassium 3.9 mmol/L (3.5-5.1); Sodium Level 133 mmol/L (136-145)
[2023-04-30 10:33] LABS: HIV - WCH Non-Reactive (Nonreactive); Hepatitis B Surface Antibody Non-Reactive
[2023-04-30 10:39] LABS: Hepatitis C Antibody REACTIVE (Nonreactive)
[2023-04-30 11:58] LABS: AST(SGOT) 16 U/L (15-37); Alanine Aminotransfer ALT/SGPT 18 U/L (16-61); Albumin, Serum 3.8 g/dL (3.2-5.0); Alkaline Phosphatase 82 U/L (45-117); Bilirubin, Direct 0.23 mg/dL (0.00-0.30); Globulin 3.9 g/dL (2.2-4.2); Magnesium 2.4 mg/dL (1.6-2.6); Protein, Total 7.7 g/dL (6.4-8.2)
[2023-05-01 09:09] LABS: Hepatitis A AB, Total Positive (Negative)
[2023-05-14] VITALS (14 sets, daily range): BP systolic 71–140; BP diastolic 51–76; PULSE 61–75; RESP 14–22; TEMP 36.4–37; O2SAT 96–100; BMI 23.3
--- OUTSIDE RECORDS SUMMARY | 2023-05-14 05:30 | XMS RPT_ITS | CCD ---
Author Name Unknown Address [address] [place] [address] Organization [facility] Care Team Providers Care It Security Engineer Name Role Phone TuckerIsacambreen Zhang Unavailable Unavailable Yuliana Lema Unavailable Unavailable Roof ENVIRONMENTAL HEALTH SPECIALIST, Monroe Martinez Unavailable Yuliana Lema Unavailable Unavailable Allergies Allergy Classification Reported Allergen(s) Allergy Type Date of Onset Reaction(s) Facility (4 sources) codeine drug allergy 07-12-2010 rash and SOB [facility] Work Phone: (4 sources) lisinopril drug allergy 04-03-2011 facial redness [facility] Work Phone: Medications Completed/Discontinued Medications Medication Drug Class(es) Dates Sig (Normalized) Sig (Original) ALBUTEROL SULFATE (8 sources) beta2-Adrenergic Agonist Start: 03-29-2011 End: 04-10-2015 VENTOLIN HFA 108 (90 Base) MCG/ACT AERS As needed ALBUTEROL SULFATE [id number] Justine Concepcion RN Problems Active Problems Problem [...] 04-03-2011 Episodic Other aftercare (6 sources) Other group home (current) drug therapy; Translations: [Long-term (current) [...] BP Diastolic 72 mm[Hg] Monroe Mckeon NP [facility] Work Phone: 05-06-2016 15:21-0500 BP Systolic 124 mm[Hg] Monroe Mckeon ENVIRONMENTAL HEALTH SPECIALIST [facility] Work Phone: 05-06-2016 15:21-0500 BSA (Body Surface Area) 1.87 m2 Monroe Mckeon ENVIRONMENTAL HEALTH SPECIALIST [facility] Work Phone: 05-06-2016 15:21-0500 Pulse (Heart Rate) 56 /min Monroe Mckeon ENVIRONMENTAL HEALTH SPECIALIST [facility] Work Phone: 05-06-2016 15:21-0500 Respiratory Rate 16 /min Monroe Mckeon ENVIRONMENTAL HEALTH SPECIALIST [facility] Work Phone: 05-06-2016 15:21-0500 Weight 71.67 kg Monroe Mckeon NP [facility] Work Phone: 05-17-2014 11:31-0500 Body Temperature 97.2 [degF] Monroe Mckeon ENVIRONMENTAL HEALTH SPECIALIST [facility] Work Phone: 12-28-2013 08:52-0400 Height 175.26 cm Monroe Mckeon ENVIRONMENTAL HEALTH SPECIALIST [facility] Work Phone: 08-14-2011 12:15-0400 Heart rate 429 ms Yuliana Lema [facility] Work Phone: 08-14-2011 12:15-0400 Heart rate 55 /min Yuliana Lema [facility] Work Phone: 05-15-2011 12:41-0500 Pulse (Heart Rate) 68 /min Monroe Mckeon NP [facility] Work Phone: 07-12-2010 09:50-0400 BP Diastolic 96 mm[Hg] Monroe Mckeon ENVIRONMENTAL HEALTH SPECIALIST [facility] Work Phone: 07-12-2010 09:50-0400 BP Systolic 146 mm[Hg] Monroe Mckeon ENVIRONMENTAL HEALTH SPECIALIST [facility] Work Phone: Procedures Date Procedure [...] Author Start: 06-30-2017 End: 06-30-2017 Appointment Appointment [facility] Work Phone: Start: 06-09-2017 End: 11-22-2016 *Hepatic Function Panel *Hepatic Function Panel [facility] Work Phone: Start: 06-09-2017 End: 11-22-2016 Lipid panel [AGGREGATE] *Lipid Profile CC PCP [facility] Work Phone: Start: 11-13-2016 End: 11-13-2016 Appointment Appointment [facility] Work Phone: Start: 11-13-2016 End: 11-13-2016 Follow Up Appt 6 months Follow Up Appt 6 months [facility] Work Phone: Start: 11-13-2016 End: 11-13-2016 PFM PFM [facility] Work Phone: Start: 11-07-2016 End: 11-08-2016 *Hepatic Function Panel *Hepatic Function Panel [facility] Work Phone: Start: 11-07-2016 End: 11-08-2016 Lipid panel [AGGREGATE] *Lipid Profile CC PCP [facility] Work Phone: Start: 05-06-2016 End: 05-10-2016 *Hepatic Function Panel *Hepatic Function Panel [facility] Work Phone: Start: 05-06-2016 End: 05-06-2016 Follow Up Appt 6 months Follow Up Appt 6 months [facility] Work Phone: Start: 05-06-2016 End: 05-10-2016 Lipid panel [AGGREGATE] *Lipid Profile CC PCP [facility] Work Phone: Start: 05-06-2016 End: 05-06-2016 PFM PFM [facility] Work Phone: Start: 04-24-2016 End: 05-22-2016 *Hepatic Function Panel *Hepatic Function Panel [facility] Work Phone: Start: 04-24-2016 End: 05-22-2016 Lipid panel [AGGREGATE] *Lipid Profile CC PCP [facility] Work Phone: Start: 01-19-2016 End: 01-30-2016 *Hepatic Function Panel *Hepatic Function Panel [facility] Work Phone: Start: 01-19-2016 End: 01-30-2016 Lipid panel [AGGREGATE] *Lipid Profile CC PCP [facility] Work Phone: Start: 12-13-2015 End: 12-13-2015 Follow Up BP Check Follow Up BP Check [facility] Work Phone: Start: 10-20-2015 End: [...] Up Appt Other Follow Up Appt Other [facility] Work Phone: Start: 10-20-2015 End: 10-23-2015 Lipid panel [AGGREGATE] *Lipid Profile CC PCP [facility] Work Phone: Start: 10-20-2015 End: 10-20-2015 PFM PFM [facility] Work Phone: Start: 10-10-2015 End: 10-23-2015 *Hepatic Function Panel *Hepatic Function Panel [facility] Work Phone: Start: 10-10-2015 End: 10-20-2015 Lipid panel [AGGREGATE] *Lipid Profile CC PCP [facility] Work Phone: Start: 04-10-2015 End: 04-11-2015 *Hepatic Function Panel *Hepatic Function Panel [facility] Work Phone: Start: 04-10-2015 End: 04-11-2015 Lipid panel [AGGREGATE] *Lipid Profile CC PCP [facility] Work Phone: Start: 04-10-2015 End: [...] 01-31-2014 End: 02-07-2014 Arterial exam Arterial exam [facility] Work Phone: Start: 01-17-2014 End: 01-17-2014 Follow Up Appt 6 months Follow Up Appt 6 months [facility] Work Phone: Start: 01-17-2014 End: 01-17-2014 Follow Up Appt Other Follow Up Appt Other [facility] Work Phone: Start: 01-17-2014 End: 01-17-2014 PFM PFM [facility] Work Phone: Start: 12-28-2013 End: 12-28-2013 Follow Up Appt 3 months Follow Up Appt 3 months [facility] Work Phone: Start: 12-28-2013 End: 12-28-2013 Pulmonary Fuction Test - complete Pulmonary Fuction Test - complete [facility] Work Phone: Start: 12-28-2013 End: 12-28-2013 Pulmonary stress test/simple Pulmonary stress testing; simple (eg, 6-minute walk) [facility] Work Phone: Start: 2013 End: 10-25-2013 *Hepatic Function Panel *Hepatic Function Panel [facility] Work Phone: Start: 2013 End: 10-25-2013 Lipid panel [AGGREGATE] *Lipid Profile CC PCP [facility] Work Phone: Start: 09-28-2013 End: 09-28-2013 Follow Up Appt 3 months Follow Up Appt 3 months [facility] Work Phone: Start: 09-28-2013 End: 09-28-2013 Pulmonary Fuction Test - complete Pulmonary Fuction Test - complete [facility] Work Phone: Start: 07-12-2013 End: 07-12-2013 Follow Up Appt 6 months Follow Up Appt 6 months [facility] Work Phone: Start: 07-12-2013 End: 07-12-2013 Follow Up Appt Other Follow Up Appt Other [facility] Work Phone: Start: 07-12-2013 End: 07-12-2013 PFM PFM [facility] Work Phone: Start: 04-24-2013 End: 05-10-2013 *Hepatic Function Panel *Hepatic Function Panel [facility] Work Phone: Start: 04-24-2013 End: 05-10-2013 Lipid panel [AGGREGATE] *Lipid Profile CC PCP [facility] Work Phone: Start: 01-11-2013 End: 01-12-2013 Carotid duplex Carotid duplex [facility] Work Phone: Start: 01-11-2013 End: 01-12-2013 Echocardiography Echocardiogram (complete) [facility] Work Phone: Start: 01-11-2013 End: 01-11-2013 Follow Up Appt 6 months Follow Up Appt 6 months [facility] Work Phone: Start: 01-11-2013 End: 01-11-2013 Follow Up Appt Other Follow Up Appt Other [facility] Work Phone: Start: 01-11-2013 End: 01-11-2013 MMM MMM [facility] Work Phone: Start: 09-21-2012 End: 07-17-2012 *Hepatic Function Panel *Hepatic Function Panel [facility] Work Phone: Start: 09-21-2012 End: 07-17-2012 Lipid panel [AGGREGATE] *Lipid Profile [facility] Work Phone: Start: 07-16-2012 End: 07-16-2012 *Hepatic Function Panel *Hepatic Function Panel [facility] Work Phone: Start: 07-16-2012 End: 07-16-2012 Follow Up Appt 6 months Follow Up Appt 6 months [facility] Work Phone: Start: 07-16-2012 End: 07-16-2012 Lipid panel [AGGREGATE] *Lipid Profile [facility] Work Phone: Start: 07-16-2012 End: 07-16-2012 PFM PFM [facility] Work Phone: Start: 12-16-2011 End: 07-15-2012 *Hepatic Function Panel *Hepatic Function Panel [facility] Work Phone: Start: 12-16-2011 End: 12-16-2011 Follow Up Appt 6 months Follow Up Appt 6 months [facility] Work Phone: Start: 12-16-2011 End: 07-15-2012 Lipid panel [AGGREGATE] *Lipid Profile [facility] Work Phone: Start: 08-14-2011 End: 12-16-2011 *BMP *BMP [facility] Work Phone: Start: 08-14-2011 End: 12-16-2011 *CBC with Differential *CBC with Differential [facility] Work Phone: Start: 08-14-2011 End: 07-15-2012 Coagulation factor induced.INR assay in platelet poor plasma [facility] Work Phone: Start: 08-14-2011 End: 12-16-2011 Electrocardiogram, complete EKG (In office) [facility] Work Phone: Start: 08-14-2011 End: 12-16-2011 Follow Up Appt 3 months Follow Up Appt 3 months [facility] Work Phone: Start: 08-14-2011 End: 08-14-2011 Left Heart Cath Left Heart Cath [facility] Work Phone: Start: 05-29-2011 End: 07-15-2012 Cardiac Rehab Cardiac Rehab [facility] Work Phone: Start: 05-15-2011 End: 06-12-2011 *Hepatic Function Panel *Hepatic Function Panel [facility] Work Phone: Start: 05-15-2011 End: 05-15-2011 Follow Up Appt 3 months Follow Up Appt 3 months [facility] Work Phone: Start: 05-15-2011 End: 06-12-2011 Lipid panel [AGGREGATE] *Lipid Profile [facility] Work Phone: Start: 04-11-2011 End: 04-12-2011 Ct pelvis w/o dye CT Pelvis [facility] Work Phone: Start: 04-04-2011 End: 07-15-2012 *24 hour urine for metanephrines *24 hour urine for metanephrines [facility] Work Phone: Start: 04-03-2011 End: 04-04-2011 Carotid duplex Carotid duplex [facility] Work Phone: Start: 04-03-2011 End: 04-04-2011 Echocardiography Echocardiogram (complete) [facility] Work Phone: Start: 04-03-2011 End: 04-03-2011 Follow Up Appt 6 weeks Follow Up Appt 6 weeks [facility] Work Phone: Start: 04-03-2011 End: 04-04-2011 Follow Up Appt Other Follow Up Appt Other [facility] Work Phone: Start: 04-03-2011 End: 04-04-2011 Left Heart Cath Left Heart Cath [facility] Work Phone: Start: 04-03-2011 End: 04-04-2011 Renal doppler Renal doppler [facility] Work Phone: Patient Education [facility] [...] BE BASED ON THE PRIMARY CLINICAL RECORDS. [facility]. provides no warranty or guarantee of the accuracy or completeness of information in this document.
[2023-05-14] MEDS: Magnesium 1 GM over 15 mins IV (06:10)
[2023-05-14] MEDS: Acetaminophen 500 MG Tablet 1000 MG PO ×2 (06:33→21:11)
[2023-05-14] MEDS: Lactated Ringers 1,000 ML 15 ML IV ×2 (06:33→16:56)
[2023-05-14 06:57] LABS: Bedside Glucose 95 mg/dL (74-106)
--- NOTE | 2023-05-14 08:18 | PCM.HP.BLA ---
History and Physical Date of Admission: 05/14/23 MR#: [id number] Acct: [id number] Name: PATRICE LOVETT Rep #: [id number] : 1950 Provider: Dr. Amarjit Irving MD Age/Sex: 72/M [place] [facility] [place] Status: Signed Intake Vital Signs 01/29/2308:54 05/02/2411:44 Height 5 ft 10 in 5 ft 10 in Intake Visit Reasons: lumbar spine Chief Complaint: pre op Is patient in pain?: Yes (lumbar spine) Pain scale (1-10): 8 Allergies codeine Allergy (Verified 05/02/23 14:55) Shortness of breathlisinopril Allergy (Verified 05/02/23 14:55) Shortness of breath Medications aspirin 325 mg tablet 325 mg PO DAILY@0800 [facility] #30 tabs 11/03/14 [Rx Confirmed 05/02/23] omeprazole 40 mg capsule,delayed release 40 mg PO DAILY Indigestion 04/01/22 [History Confirmed 05/02/23] amlodipine 5 mg tablet 5 mg PO DAILY HYPERTENSION #90 tabs 07/23/22 [Rx Confirmed 05/02/23] clopidogrel 75 mg tablet 75 mg PO DAILY BLOOD THINNER #90 tabs 08/21/22 [Rx Confirmed 05/02/23] isosorbide mononitrate 30 mg tablet,extended release 24 hr 30 mg PO DAILY HYPERTENSION #90 tabs 11/01/22 [Rx Confirmed 05/02/23] nitroglycerin 0.4 mg sublingual tablet 0.4 mg sublingual Q5M PRN Chest Pain #25 tabs 12/05/22 [Rx Confirmed 05/02/23] atorvastatin 40 mg tablet 40 mg PO QDAY HYPERLIPIDEMIA 04/23/23 [History Confirmed 05/02/23] carvedilol 25 mg tablet 12.5 mg PO BID HYPERTENSION 04/23/23 [History Confirmed 05/02/23] gabapentin 400 mg capsule 800 mg PO BID PAIN 04/23/23 [History Confirmed 05/02/23] tiotropium bromide 1.25 mcg/actuation mist for inhalation (Spiriva Respimat) 2 inh inhalation DAILY COPD 04/23/23 [History Confirmed 05/02/23] tramadol 50 mg tablet 100 mg PO BID PAIN 04/23/23 [History Confirmed 05/02/23] PFSH Medical History Abdominal pain Acute exacerbation of chronic obstructive airways disease Alcohol use Aortic stenosis Arthritis Atherosclerotic heart disease of [place] coronary artery without angina pectoris Back pain Benign essential hypertension Bilateral carotid artery stenosis Bilateral carotid bruits Cardiology follow-up encounter Carotid atherosclerosis Chest pain Chronic back pain Chronic obstructive lung disease Complete edentulism, class III COVID CPAP (continuous positive airway pressure) dependence DJD (degenerative joint disease) Fibromyalgia Former smoker GERD (gastroesophageal reflux disease) H/o addiction H/o blood transfusion Heart disease Hepatitis Hepatitis C Hiatal hernia High cholesterol History of diverticulitis History of echocardiogram History of hiatal hernia History of pain when walking History of stress test HLD (hyperlipidemia) Hypertension Injury of back Injury of head and neck Leg cramps Loss of consciousness Loss of hearing Lumbar pain Lung disease Marijuana use Neck fracture Neuropathy No natural teeth Nonrheumatic aortic (valve) stenosis Obstructive sleep apnea Peripheral artery disease Renal artery stenosis Restless legs Right arm weakness Right leg weakness Sleep apnea Venous insufficiency Venous ulcer Wears glasses Wears hearing aid Surgical History History of back surgery History of cardiac catheterization History of coronary artery stent placement History of nasal surgery History of stent insertion of renal artery Hx of colonoscopy Hx of hemorrhoidectomy Postsurgical percutaneous transluminal coronary angioplasty (PTCA) status (~03/2011) Presence of stent in coronary artery (~03/2011) Family History Brother Tonsil cancer Cancer Skin DiabetesSister Breast cancer DiabetesMother Diabetes Hypertension CAD (coronary artery disease) Myocardial infarctionBrother CAD (coronary artery disease) Myocardial infarction CardiomyopathyFather Cancer Social History household members: spouse housing: house current occupational status: employed Smoking Status: Former smoker alcohol intake: never substance use type: marijuana and other details: h/o addiction caffeine: Yes what type of physical activity do you participate in: walking frequency: 5-6 times per week seatbelt use: always do you feel safe at home: Yes HPI lumbar spine Details: This documentation accurately reflects the service provided and the decisions made by me, Dr. Amarjit Irving MD 05/02/23 5826. Part of today?s visit was documented by [ ], acting as scribe. PATRICE LOVETT is a 72 year old M here today for preop appointment. He is scheduled for L3-L4 and L5-1 anterior and posterior fusion. L3-S1 revision posterior instrumentation. Patrice continues to have low back pain radiating down to the left lower extremity. He underwent preoperative clearance and is scheduled to undergo surgery in 2 weeks. He is here for his preop appointment. Following his his previous history. 04/01/23: Patrice continues to have low back pain radiating down to the left lower extremity. At his last visit I ordered a neck MRI because of his symptoms of balance difficulties. He says that his balance has been stable. He is here to review the cervical MRI and discuss further treatment of his lumbar pathology. To review, he came in with prior history as follows. 02/28/23: Patrice continues to have lower back pain left lateral thigh numbness and left lower extremity radiating pain to the toes. He also continues to have difficulty with numbness and dexterity issues in both hands and balance issues which seem to be slightly worsening with time. He was seen by me about a month ago and was advised to obtain a new MRI for his lumbar spine. He is here to review the MRI images. To review, Rodriguez has had numerous injections every few months for many years now. His last injection was in November. He feels that after his last injection he started having difficulty with balance such that he would feel severe weakness in both lower extremities and his knees would give out on him. He says that this balance issue has been worsening over the last 1 to 2 months. His lower back hurts in the PSIS region now bilaterally. He has radicular pain going into the left lower extremity along the lateral thigh lateral leg and to the toes. He also feels numb equally on bilateral anterior thighs. He has occasional neck pain without radiculopathy. He has early difficulty with dexterity such that he drops things easily from his hand. He is nondiabetic. He quit smoking and alcohol a few years ago. He has done physical therapy in the past which only worsened his pain. His previous L4-5 fusion was 8 to 9 years ago. He has been seen by Dr. Glez in 2020. Ortho Exam General General: Yes no acute distress Neurologic: Yes alert and Yes oriented x3 Spine SPINE TESTING CERVICAL THORACIC LUMBAR Musculoskeletal Strength 0=absent - 5=normal Details: Examination of the lower back shows midline scar well-healed. There is bilateral paraspinal tenderness in lower lumbar spine. Lumbar flexion hurts more than lumbar extension. Neurological evaluation of both upper and lower extremity shows 5 x 5 power in all muscle groups, except bilateral ankle dorsiflexion which is 4+. Chiki's negative. Romberg's is positive. Tandem gait shows imbalance. Knee reflexes are brisk. There is no ankle clonus. Coding Level of Care Code Off vis,est,level 3 Diagnoses Lumbar radiculopathy M54.16 S/P lumbar fusion Z98.1 Time Spent (min) 30 Assessment and Plan Assessment and Plan (1) Lumbar radiculopathy: Status: Acute (2) S/P lumbar fusion: Status: Acute Plan His lumbar spine was again reviewed which shows stable L4-5 fusion with adjacent segment degeneration at L3-4 and L5-S1 causing significant foraminal stenosis worse on the left side. Explained to him options of treatment for this which include continued nonoperative treat measures versus surgery. Patient has had injections and physical therapy without significant help in the recent past. He wishes to proceed with surgical intervention as this symptoms are affecting his quality of life. Because of fusion at L4-5 and because of foraminal stenosis above and below, I recommended surgery in the form of L3-4 and L5-S1 decompression fusion. This would be with L3-4 and L5-S1 anterior posterior fusion, indirect decompression, removal and reinsertion of hardware posteriorly from L3-S1. All risk benefits and alternatives were discussed in detail. Patient has COPD and sleep apnea and will require clearance prior to surgery. The risks of surgery include but are not limited to infection, bleeding, injury to nerves and vessels, need for further surgeries, pseudoarthrosis, hardware failure, vascular injury, DVT, pulmonary embolism, cardiopulmonary event, foot drop, persistent axial or radicular pain. Patient understands and agrees to proceed with surgery. Consent was signed. Cardiac & pulmonary clearances reviewed.
--- NOTE | 2023-05-14 08:50 | RAD_ITS ---
INDICATION: L3-4,L5-S1 ANTERIOR AND POSTERIOR FUSION, REVISION OF L3-S1 EXAMINATION/TECHNIQUE: X-RAY - XR Spine Lumbar 2 or 3 Views . 19 fluoroscopic images of the lumbar spine. COMPARISON: Prior study dated: 01/28/2023 FINDINGS: Initial images show posterior fusion hardware at L4-L5 with a disc spacer. Subsequent images show placement of disc spacers at L3-L4 and L5-S1. There is removal of L4-L5 hardware with new posterior fusion hardware placed from L3 through S1, skipping the L4 level. RAD/Lumbar Spine 2 or 3 Views IMPRESSION: Intraoperative fluoroscopic guidance for posterior fusion spanning from L3 to S1 as above. Electronically Signed: Lamin Velasco MD at 22:03 EST ,
[2023-05-14] MEDS: Cefazolin 2 GM in 0.9% Normal Saline (100mL Bag) 100 ML IV ×3 (09:00→21:10)
[2023-05-14] MEDS: Ropivacaine 0.5% 30 ML Vial (15:57)
--- NOTE | 2023-05-14 16:10 | PCM.OPRPT ---
Report of Operation Date of Procedure: 05/14/23 Description of Surgical Findings:: Preoperative diagnosis: L3-4 and L5-S1 disc degeneration with foraminal stenosis, prior L4-5 fusion Postoperative diagnosis: Same Name of procedures L3-4, L5-S1 oblique lumbar interbody fusion (OLIF), minimally invasive left sided approach, lateral decubitus: ? L3-4 anterolateral spinal fusion 19640 ? L5-S1 anterolateral fusion 11515/51 ? L3-4 insertion of cage 90262 ? L5-S1 insertion of cage 45888/51 -Exploration of L4-5 spinal fusion 32586 ? Bone graft aspirate vertebral body ? Allograft cancellous chips Attending Surgeon: Dr. Amarjit Irving Co-surgeon: Dr. Bj Hayden Estimated blood loss: 200 mL for the entire case Anesthesia: General Complications: None Indications: Patient is a 72-year-old pleasant gentleman who has had a long history of low back pain and left worse than right lower extremity radiation. He underwent L4-5 spinal fusion many years ago. Xrays & MRI revealed adjacent segment degeneration at L3-4 and L5-S1 with foraminal stenosis. After undergoing a prolonged period of nonoperative treatment, he elected to undergo surgical decompression & fusion. All surgical options were discussed with the patient including anterior and posterior approaches. All risks and benefits associated with the procedure were explained to the patient. The risks include but are not limited to infection, bleeding, injury to nerves and vessels including major vessels like IVC and aorta, persistent paresthesia, persistent pain, dural tear, need for further procedures, adjacent segment degeneration, pseudoarthrosis, hardware failure, retrograde ejaculation, paralytic ileus, etc. Procedure: The patient was identified in the preoperative holding suite using Unique patient identifiers. Skin was marked, consent was reviewed, and all questions were answered. The patient was then brought back to the operative room. A surgical timeout was performed to make sure correct procedure was being done on the correct patient and all operative room staff were on the same page. General endotracheal anesthesia was then given to the patient. [place] catheter was inserted. The patient was then carefully positioned in right lateral decubitus position with the left side up on a regular OR table. Axillary roll was placed and all bony prominences were well- padded. Hip positioners were placed in the posterior buttocks and anterior sternal area. The surgical area was prepped and draped in usual fashion. Preoperative antibiotic was injected IV as preoperative antibiotic. A final timeout was then again done just before starting the procedure. The anterior approach was performed in conjunction with Dr. Bj Hayden vascular surgeon. Please see his operative report for additional details A 2 inch incision oblique was taken in the left lower quadrant of the abdomen 2 fingerbreadths away from the iliac crest and the lower ribs. Sharp dissection with Bovie was carried out up to the fascia covering the external oblique. The external oblique, internal oblique and transversus abdominis muscles were split along the muscle fibers and retroperitoneal space was entered. Sponge sticks were utilized to move the bowel and peritoneum [id number]-way and psoas muscle was exposed staying within the retroperitoneal plane. NodePrime retractor system was positioned and the retractor blade was applied onto the psoas. The interval between psoas and aorta was developed and appropriate retractors were placed. Once adequate interval was cleared, a disc space was identified and a marker x-ray was taken. This identified the L3-4 disc level. The prepsoas interval was then traced inferiorly to expose the L4-5 level which showed solid fusion. For the retraction of the peritoneal sac medially inferiorly was performed to reach under the bifurcations of the major vessels. An attempt was made to expose the anterior aspect of the L5-S1 disc under the bifurcation. However significant adhesions with the left common iliac vein with an anterolateral left-sided osteophyte made it difficult for appropriate access to the L5-S1 disc. Decision was made in conjunction with Dr. Hayden to explore the left prepsoas approach to L5-S1. Retractors were then repositioned to develop the space between the psoas muscle and the left common iliac vessels. Staying lateral to the bifurcation the left iliolumbar vein was identified at the L5 vertebral body level. This was ligated with the help of silk sutures and vascular clips and Endoloop was also utilized after dividing the vein. The left, iliac vessels were then retracted medially to expose the anterolateral aspect of the L5-S1 disc. This was confirmed on C-arm. Annulotomy was done with a long handled knife. Pituitary was used to remove disc material. Curettes were used to prepare the endplates. Disc space spreaders were utilized to distract and increase the disc height. Near complete discectomy was performed. Trials of serially increasing sizes were used. A Jamshidi needle was used to aspirate bone marrow from the vertebral body and this aspirate was mixed with the allograft bone chips. A Depuy [place] cage of size of the 18 x 45 x 12 mm with 15 degrees lordosis was packed with corticocancellous allograft bone chips mixed with bone marrow aspirate. This was inserted into the L5-S1 disc space. The retractors were then repositioned to expose the L3-4 disc and the procedure was repeated with complete discectomy and endplate preparation. Smaller disc distractors were also used to bluntly perform a contralateral annulotomy at the L3-4 level. Cage size was 18 x 50 x 14 mm at L3-4. AP and lateral C-arm pictures were taken to confirm good position of the cage. Some bone chips were also packed around the cages. Hemostasis was confirmed. The retractor blades were removed. Closure was done in layers with a continuous strand of # 1 Vicryl in all muscle layers. 2-0 Vicryl was used for subcutaneous tissue and 4-0 for Monocryl for the skin. Steri-Strips were applied and 4 x 4 gauze and Tegaderm were applied. Admit VTE Documentation VTE Mechan Device Prophylaxis: SCD's Procedures Musculoskeletal 20xxx-[id number]: Other Procedure See Report
--- NOTE | 2023-05-14 16:19 | OP.PCM_ITS ---
Report of Operation Date of Procedure: 05/14/23 Description of Surgical Findings:: Preoperative diagnosis: L3-4 and L5-S1 disc degeneration with foraminal stenosis, prior L4-5 fusion Postoperative diagnosis: Same Name of procedures: L3-S1 posterior percutaneous pedicle screw instrumented fusion, prone: ? L3-4 posterior spinal fusion 37117 ? L3-S1 posterior pedicle screw instrumentation 40894 ? L5-S1 posterior fusion / . Exploration of L4-5 spinal fusion ? Allograft cancellous chips Attending Surgeon: Dr. Amarjit Irving Estimated blood loss: 200 mL (total for entire case) Anesthesia: General Complications: None Description of procedure: After the anterior procedure was complete, the patient was then turned supine. The patient was then transferred to Juan Daniel table in prone position. Back was prepped and draped in usual fashion. C-arm AP view was then taken. C-arm was positioned in a way that L3 was centralized and superior endplate of was parallel to the beam. Spinous process was centered between the pedicles. Midline was marked with skin marker and lateral borders of the pedicles were also marked. Skin marker was also utilized to kristie transversely across the middle of the pedicles at L3. 2 transverse paramedian incisions of 1 inch were placed. The fascia was incised vertically. Finger dissection was utilized to palpate the transverse process and facet joint. Viper Prime screws with towers were inserted and docked onto the transverse processes. This was then slowly moved medially to reach the superior articular process of L3. This was then confirmed on C-arm and then a mallet was utilized to drive the trocar into the pedicle going up to the medial wall of the pedicle on AP view. This was performed both sides. C-arm lateral view confirmed that the tip of the trocar was in the vertebral body, and the screw was advanced into the pedicle and vertebral body. This was repeated similarly at S1 bilaterally. Screw sizes were 7 x 50 mm at L3, and 7 x 45 mm at S1 on both sides. Paramedian vertical incisions about 1 inch length were placed at the level of the L5. Sequential tubes were passed to use a tubular retractor to expose the previous L4 and L5 pedicle screw instrumentation. Osteotome was utilized to remove overgrown bone on top of the setscrews. So screwdriver was utilized to remove the setscrews. Torey was pulled out. L4-5 posterior fusion was explored and was found to have significant bony callus with solid fusion. L4 and L5 pedicle screws were then removed. A guidewire was placed at the L5 pedicle screw hole. Viper prime 7 x 50 mm screw was placed at L5 bilaterally using the guidewires. 100 mm precontoured titanium 5.5 mm lordotic torey on the right and 90 mm on the left were then passed through the screw extensions and reduced down to the screws with the help of [employer] Viper instrumentation system on both sides. AP and lateral view of the C-arm showed good positioning of the screws and cages. Final tightening with the torque screwdriver was then completed. [place] was utilized to roughen the facet joint at L3-4 and L5-S1 on the right side. Cancellous allograft bone chips mixed with bone marrow aspirate were then placed over this decorticated area. Hemostasis was achieved. Closure was done in layers with 0 Vicryls for the fascia, 2-0 Vicryls for the subcutaneous tissue, and Monocryl for the skin. Dermabond was applied. Dressings were applied covered with Tegaderm. The patient was then turned supine onto a hospital bed. The patient was extubated and taken to PACU in stable condition. The patient tolerated the procedure well and no complications occurred. Depuy [place] cage & Viper Prime minimally invasive pedicle screw instrumentation system was utilized in this case. No dural tear was identified intraoperatively. I was present for the entirety of the case and performed the surgery. Admit VTE Documentation VTE Mechan Device Prophylaxis: SCD's Procedures Musculoskeletal 20xxx-29xxx: Other Procedure See Report
[2023-05-14] MEDS: Ketorolac 15 MG/ML Vial IV (20:04)
[2023-05-14] MEDS: Methocarbamol 500 MG Tablet 1000 MG PO (21:10)
[2023-05-14] MEDS: Senna/Docusate Sodium 1 Tablet 2 TABLET PO (21:10)
[2023-05-14] MEDS: Atorvastatin Calcium 40 MG Tablet PO (21:12)
[2023-05-14] MEDS: Carvedilol 12.5 MG Tablet PO (21:12)
[2023-05-14] MEDS: Gabapentin 800 MG Tablet PO (21:14)
--- NOTE | 2023-05-14 21:20 | PCM.PN.HOSP ---
Reason for Visit Reason for Visit: Diagnoses Encounter for other preprocedural examination (05/14/23) Subjective Subjective 72-year-old male history hypertension, GERD, CAD w/ stent in 2011, COPD who presented to [facility] 05/14/2023 for L3-S1 anterior and posterior fusion due to disc degeneration and foraminal stenosis. Hospitalist contacted for admission. Patient evaluated at bedside. Patient resting comfortably and feeling well post surgery, has no physical complaints or concerns. Objective Data Objective Data Vital Signs: Vital Signs Temp Pulse Resp BP Pulse Ox O2 Del Method O2 Flow Rate 98.2 F 75 16 129/76 H 98 Room Air 4 05/14/23 20:40 05/14/23 20:40 05/14/23 20:40 05/14/23 20:40 05/14/23 20:40 05/14/23 20:40 05/14/23 18:40 FiO2 21 05/14/23 17:38 Oxygen Flow Rate (L/min) 4 Oxygen Delivery Method Room Air Weight: 74 kg Body Mass Index (BMI) 23.3 Intake & Output: Intake and Output for Last 24 Hours 05/12/23 05/13/23 05/14/23 23:59 23:59 23:59 Intake Total 5322 / 5322 Output Total 1450 / 1450 Balance 3872 / 3872 Lab / Micro Data 04/30/23 07:39 04/30/23 07:39 Labs: Laboratory Results - last 24 hr 05/14/23 06:17: POC Glucose 95 Micro: Microbiology 04/30/23 07:39 Swab (Method) Nasal Screen MRSA/MSSA - Final Physical Exam Narrative General: Alert, oriented, no apparent distress HEENT: Atraumatic, normocephalic Eyes: Anicteric, normal conjunctiva, extraocular movements grossly intact Neck: Supple Respiratory: Clear to auscultation bilaterally, normal respiratory effort Cardiovascular: Regular rate and rhythm GI: Soft, nontender, nondistended Extremities: No edema Musculoskeletal: Moving all extremities Neuro: No overt focal neurological deficits Skin: No rashes appreciated Psych: Cooperative Assessment & Plan Assessment/Plan (1) S/P lumbar fusion: (2) Obstructive sleep apnea: (3) Chronic obstructive lung disease: (4) Benign essential hypertension: (5) Atherosclerotic heart disease of [place] coronary artery without angina pectoris: QUALIFIERS: [place] vs. transplanted heart: [place] heart Qualified Code(s): I25.10 - Atherosclerotic heart disease of [place] coronary artery without angina pectoris PLAN: Plan #Lumbar stenosis s/p -s/p L3-S1 anterior and posterior fusion due to disc degeneration and foraminal stenosis 05/14 w/ Dr. Irving -PT/OT -Pain control -Management per primary #HTN -BP was soft post op and has been variable -Hold amlodipine -Will add holding parameters to coreg # COPD -Continue home inhalers #GERD -Continue PPI #HEATHER -Continue cpap #Hx CAD -W/ stent in 2011 -Resume home aspirin and Plavix when cleared to do so per surgery -Continue statin #DVT ppx: Timing at discretion of surgeon Raiza Evans MD Charges/Coding Visit Charges Inpatient E&M: 00470 [facility] Hosp L1
[2023-05-14] MEDS: Ondansetron 4 MG/2 ML Vial IV (21:43)
[2023-05-14] MEDS: proCHLORPERazine 10 MG/2 ML Vial IV (22:33)
[2023-05-14] MEDS: 0.9% Saline Lock 10 ML Syringe IV (22:33)
[2023-05-15] VITALS (7 sets, daily range): BP systolic 100–152; BP diastolic 61–70; PULSE 72–81; RESP 16–18; TEMP 36.7–37.1; O2SAT 96–99
[2023-05-15] MEDS: Ketorolac 15 MG/ML Vial IV ×2 (01:17→08:01)
[2023-05-15] MEDS: 0.9% Normal Saline (500mL Bag) 500 ML 999 ML IV (04:15)
[2023-05-15] MEDS: Cefazolin 2 GM in 0.9% Normal Saline (100mL Bag) 100 ML IV (04:59)
[2023-05-15] MEDS: Acetaminophen 500 MG Tablet 1000 MG PO ×2 (05:00→14:09)
[2023-05-15 07:15] LABS: Hematocrit 27.3 % (40-54); Mean Corpuscular Hgb 30.1 pg (27.0-32.0); Mean Corpuscular Volume 91.3 fL (80-94); Platelet Count 132 K/mm3 (150-450); RBC Distribution Width CV 13.9 % (11.6-14.6); RBC Distribution Width SD 46.4 fl (35.1-43.9); Red Blood Count 2.99 M/mm3 (4.6-6.2); White Blood Count 14.3 K/mm3 (4.4-11.0)
[2023-05-15] MEDS: Ipratropium 0.5 MG/2.5 ML SOLUTION INHALATION ×2 (07:19→14:30)
[2023-05-15 07:36] LABS: Anion Gap 4 (5-15); BUN 13 mg/dL (7-18); Chloride 109 mmol/L (98-107); Creatinine, Serum 1.08 mg/dL (0.70-1.30); EST Glomerular Filtration Rate 71 mL/min (>60); Est Glom Filt Rate - Afr Amer 86 mL/min (>60); Glucose 129 mg/dL (74-106); Potassium 4.2 mmol/L (3.5-5.1); Sodium Level 139 mmol/L (136-145)
[2023-05-15] MEDS: Carvedilol 12.5 MG Tablet PO (08:01)
[2023-05-15] MEDS: Isosorbide Mononitrate 30 MG Tablet PO (08:02)
[2023-05-15] MEDS: Pantoprazole Sodium 40 MG Tablet PO (08:02)
[2023-05-15] MEDS: Senna/Docusate Sodium 1 Tablet 2 TABLET PO (08:02)
[2023-05-15] MEDS: Methocarbamol 500 MG Tablet 1000 MG PO ×2 (08:02→14:09)
--- NOTE | 2023-05-15 08:29 | RAD_ITS ---
STUDY: X-RAY - LUMBAR SPINE REASON FOR EXAM: Male, 72 years old. S/p L3-S1 fusion -- Please do upright AP lateral TECHNIQUE: 2 view(s) of the lumbar spine were obtained. COMPARISON: Comparison is made with prior study dated May 14, 2023. FINDINGS: Normal lumbar lordosis. There is no substantial scoliosis. There is a normal alignment of the vertebrae. The patient is status post interpedicular screw and emiliano fixation at the L3 L5 and L5-S1 levels with prosthetic disc at the L3-L4, L4-L5 and L5-S1 levels. There is atherosclerotic calcification of the abdominal aorta without a demonstrated aneurysm. RAD/Lumbar Spine 2 or 3 Views IMPRESSION: Status post fusion at the L3 L5 and L5-S1 levels with prosthetic disc placement. Electronically Signed: Ferny Calderon MD at 14:53 EST ,
--- NOTE | 2023-05-15 08:43 | PCM.PN.ORT ---
Subjective Subjective Postop day 1 status post L3-S1. Pain well-controlled. Patient was able to stand and use bedside urinal. Has been passing gas. Tolerating clear liquids. Eager to get up and walk this morning. Objective Data Objective Data Vital Signs: Vital Signs Temp Pulse Resp BP Pulse Ox O2 Del Method O2 Flow Rate 98.8 F 78 16 110/64 98 Room Air 2 05/15/23 06:40 05/15/23 06:40 05/15/23 06:40 05/15/23 06:40 05/15/23 06:40 05/15/23 07:56 05/15/23 06:40 FiO2 21 05/14/23 17:38 Oxygen Flow Rate (L/min) 2 Oxygen Delivery Method Room Air Weight: 163 lb 2.273 oz Body Mass Index (BMI) 23.3 Intake & Output: Intake and Output for Last 24 Hours 05/13/23 05/14/23 05/15/23 23:59 23:59 23:59 Intake Total 5732 / 5732 1510 / 1510 Output Total 2049 / 2049 400 / 400 Balance 3682 / 3682 1110 / 1110 Lab / Micro Data 05/15/23 06:55 05/15/23 06:55 Labs: Laboratory Results - last 24 hr 05/15/23 06:55: WBC 14.3 H, RBC 2.99 L, Hgb 9.0 L, Hct 27.3 L, MCV 91.3, MCH 30.1, MCHC 33.0, RDW Std Deviation 46.4 H, RDW Coeff of Cristopher 13.9, Plt Count 132 L, MPV 10.0, Sodium 139, Potassium 4.2, Chloride 109 H, Carbon Dioxide 26.0, Anion Gap 4 L, BUN 13, Creatinine 1.08, Estim Creat Clear Calc 62.90, Est GFR (MDRD) Af Amer 86, Est GFR (MDRD) Non-Af 71, BUN/Creatinine Ratio 12.0, Glucose 129 H, Calcium 8.0 L Micro: Microbiology 04/30/23 07:39 Swab (Method) Nasal Screen MRSA/MSSA - Final Radiography Diagnostic Testing: Radiology Impression Lumbar Spine X-Ray 05/14/23 08:50 IMPRESSION: Intraoperative fluoroscopic guidance for posterior fusion spanning from L3 to S1 as above. Electronically Signed: Lamin Velasco MD at 22:03 EST , Physical Exam Narrative Exertion the back and belly show dressings CDI. Neurologic examination lower extremity shows 5 x 5 power in all muscles normal sensations in all dermatomes. Patient explains mild soreness in the right anterior thigh which has been present for couple of days now. Assessment & Plan Assessment/Plan (1) S/P lumbar fusion: PLAN: Plan Explained to patient that he can ambulate with nursing assistance and does not have to wait for physical therapy to be able to get up and about. PT OT evaluation today for discharge recommendations. Upright x-rays today. Appreciate hospitalist comanagement. Will advance diet to regular. If tolerates solid lunch without nausea or vomiting and clears PT, potential discharge this evening.
[2023-05-15] MEDS: Gabapentin 800 MG Tablet PO (08:56)
--- NOTE | 2023-05-15 09:02 | CPS ---
Per pt, he states he does not need o2 anymore. Pt sat was 98%. Pt placed on RA at this time
--- NOTE | 2023-05-15 10:03 | CASEMGMT ---
RN PASTOR Assessment: Face to Face with pt for initial transition planning/care coordination assessment. RN CM introduced self and role at [facility], pt voices understanding and consents to assessment. Pt is A&O x4 and answers all questions appropriately at this time. Pts brother and MAGGY are at bedside and pt is agreeable to them remaining present. Care providers, pharmacy, and demographics verified/updated. Admitting Dx: ERAS L3-4 and L5-S1 anterior PCP:Dr. Catherine Specialists: Preferred Pharmacy: [facility] Insurance: [facility] Prescription Benefit: yes LNOK: Spouse Asya Living Arrangements: Pt lives at home with spouse in a single story home with basement. Pt reports he goes down to the basement on occasion to empty the dehumidifier but his grandson has been doing that for him. Pt reports one step up into the home at the door. Transportation: Pt drives self and denies concerns with transportation. Spouse is able to provide transportation in the interim while pt is unable to drive. DME: Pt has grab bars on the toilet and a nebulizer he uses PRN. Pt reports he has a walker and BSC but does not use them at baseline. HHC/SNF: No history. Pt states no concerns with going home at time of dc. Pt states no further concerns/needs. CM to follow. Advised pt to ask CM if any further question/concerns/needs arise, voices understanding. Pt Goal: Home Plan: Home pending PT/OT evaluations Bernie MORROW, RN, CCM
[2023-05-15] MEDS: oxyCODONE 5 MG Tablet PO (12:14)
--- NOTE | 2023-05-15 13:14 | CASEMGMT ---
Social Work SW met with pt and to inquire about advance directives. Pt does not have HCPOA or Living Will. SW educated pt to documents and Pt requesting to complete documents at this time. SW assisted pt in completing a living will and HCPOA naming his Asya Vergara. Copy placed on pt chart and original given to pt. JASON Damon
[2023-05-15] MEDS: Meloxicam 15 MG Tablet PO (14:10)
--- NOTE | 2023-05-15 14:58 | PN.HOSP_ITS ---
Subjective Subjective Had urinary retention issues overnight that have since resolved, tolerating a diet today worked with physical therapy without issue Objective Data Objective Data Vital Signs: Vital Signs Temp Pulse Resp BP Pulse Ox O2 Del Method O2 Flow Rate 98.7 F 76 16 104/61 96 Room Air 1.5 05/15/23 14:07 05/15/23 14:31 05/15/23 14:31 05/15/23 14:07 05/15/23 14:07 05/15/23 14:11 05/15/23 07:08 FiO2 21 05/14/23 17:38 Oxygen Flow Rate (L/min) 1.5 Oxygen Delivery Method Room Air Weight: 163 lb 2.273 oz Body Mass Index (BMI) 23.3 Intake & Output: Intake and Output for Last 24 Hours 05/14/23 05/15/23 05/16/23 03:59 03:59 03:59 Intake Total 5732 / 5732 1510 / 1510 Output Total 2049 / 2049 400 / 400 Balance 3682 / 3682 1110 / 1110 Lab / Micro Data 05/15/23 06:55 05/15/23 06:55 Labs: Laboratory Results - last 24 hr 05/15/23 06:55: WBC 14.3 H, RBC 2.99 L, Hgb 9.0 L, Hct 27.3 L, MCV 91.3, MCH 30.1, MCHC 33.0, RDW Std Deviation 46.4 H, RDW Coeff of Cristopher 13.9, Plt Count 132 L, MPV 10.0, Sodium 139, Potassium 4.2, Chloride 109 H, Carbon Dioxide 26.0, Anion Gap 4 L, BUN 13, Creatinine 1.08, Estim Creat Clear Calc 62.90, Est GFR (MDRD) Af Amer 86, Est GFR (MDRD) Non-Af 71, BUN/Creatinine Ratio 12.0, Glucose 129 H, Calcium 8.0 L Micro: Microbiology 04/30/23 07:39 Swab (Method) Nasal Screen MRSA/MSSA - Final Radiography Diagnostic Testing: Radiology Impression Lumbar Spine X-Ray 05/14/23 08:50 IMPRESSION: Intraoperative fluoroscopic guidance for posterior fusion spanning from L3 to S1 as above. Electronically Signed: Lamin Velasco MD at 22:03 EST , Lumbar Spine X-Ray 05/15/23 08:29 IMPRESSION: Status post fusion at the L3 L5 and L5-S1 levels with prosthetic disc placement. Electronically Signed: Ferny Calderon MD at 14:53 EST , Physical Exam Narrative General: Alert, Oriented x3, Cooperative, No apparent distress HEENT: Atraumatic, PERRLA, EOMI, Normocephalic Oral: Moist Mucosa Neck: Supple, No JVD Lungs: Diminished, Normal air movement, No rhonchi, No wheeze, No rales Cardiovascular: Regular rate, Regular Rhythm, Normal S1, Normal S2, No murmurs Abdomen: Soft, Non Tender, Non-Distended, No Hepato-splenomegaly Extremities: No edema, Capillary Refill Less than 3 Seconds Skin: Dressing CDI Musculoskeletal: No Tenderness to Palpation of Joints or Extremities Neurological: No focal neurological deficits, Motor Exam 5/5 strength throughout, Sensory exam intact to light touch and pain Psych/Mental Status: Normal Affect, Appropriate Assessment & Plan Assessment/Plan (1) S/P lumbar fusion: (2) Obstructive sleep apnea: (3) Chronic obstructive lung disease: (4) Benign essential hypertension: (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 transplanted heart: [place] heart Qualified Code(s): I25.10 - Atherosclerotic heart disease of [place] coronary artery without angina pectoris PLAN: Plan #Lumbar stenosis s/p -s/p L3-S1 anterior and posterior fusion due to disc degeneration and foraminal stenosis 05/14 w/ Dr. Irving -PT/OT -Pain control -Management per primary ? Overnight had difficulty urinating however that is resolved medically stable for discharge if okay with surgery, leukocytosis is reactive #HTN -BP was soft post op and has been variable -Blood pressures are stable this morning, can resume all home meds # COPD -Continue home inhalers #GERD -Continue PPI #HEATHER -Continue cpap #Hx CAD -W/ stent in 2011 -Resume home aspirin and Plavix when cleared to do so per surgery -Continue statin #DVT ppx: Timing at discretion of surgeon Charges/Coding Visit Charges Inpatient E&M: 80031 Subs Hosp L2
--- NOTE | 2023-05-21 07:32 | PCM.OPRPT ---
Report of Operation Date of Procedure: 05/14/23 Pre-Operative Diagnosis: L3-4 and L5-S1 disc degeneration with foraminal stenosis, prior L4-5 fusion Postoperative diagnosis: Same Post-Operative Diagnosis: same Surgery/Procedure Performed:: L3-4, L5-S1 oblique lumbar interbody fusion (OLIF), minimally invasive left sided approach, lateral decubitus: ? L3-4 anterolateral spinal fusion 38516 ? L5-S1 anterolateral fusion 47175/51 ? L3-4 insertion of cage 44571 ? L5-S1 insertion of cage 32559/51 -Exploration of L4-5 spinal fusion 68431 ? Bone graft aspirate vertebral body ? Allograft cancellous chips Surgeon: Co-Surgeons: Dr. Irving, Dr. Hayden Type of Anesthesia: General Description of Procedure: HPI: Patient is a 72-year-old male with previous L4-L5 posterior instrumentation who was evaluated by Dr. Sanchez and felt to be appropriate for oblique lumbar interbody fusion of L3-L4 and L5-S1. Vascular surgery is requested for exposure to mobilize the great vessels of the abdomen and pelvis. Description of procedure: Upon obtaining form consent and verification correct patient procedure site patient was taken to the operating was placed under general anesthesia. Was then positioned prepped and draped in usual sterile fashion a time was performed. Oblique incision made superior to the left iliac crest and Bovie cautery was dissect down through subcutaneous tissue to the level of the fascia. Fascia was then incised in the muscular layers of the abdominal wall were split following the orientation of the fibers with hand-held retractors sequentially deeper into the wound until the retroperitoneal space was entered. Blunt dissection was then used to dissect the retroperitoneal contents from the lateral and posterior abdominal wall until the psoas muscle was visualized. This point self-retaining retractors were put in position and further mobilization of the psoas performed. We first dissected to the L3-L4 disc space and identified it with fluoroscopy and marked with the Bovie score. Next we turned our dissection distally to the L5-S1 disc space. Our initial efforts were to mobilize the left iliac vessels laterally and approach the disc space from between the bifurcation of the vessels. There is significant osteophyte on the L5 endplate which flattened and widened the vein and hindered our lateral retraction. After extensive efforts to mobilize it sufficiently to gain adequate view of the disc space we decided that mobilization and retraction medially would be beneficial. This point of the lateral aspect of the left iliac artery and vein was dissected with sharp dissection until the iliolumbar vein was identified. This was then ligated with silk ties, clips, and an Endoloop and then divided. Satisfactory hemostasis was noted and the vessels were able to be retracted medially obtaining adequate view of the L5-S1 disc space. At this point Dr. Irving performed the discectomy and an implant placement which she will describe in further detail separately. Next we repositioned the retractors exposing the L3-L4 disc space at which point Dr. Irving again performed the discectomy and implant placement which she will describe in further detail. Self-retaining retractors were then readjusted and the left iliac vessels assessed and found to be free of any injury. Retractors were then removed and the muscular layers were closed with running Vicryl followed by 3-0 Vicryl for Monocryl for the skin. Dry sterile dressing was then applied and the patient repositioned for posterior approach with Dr. Irving will dictate separately.
== END 2023-05-15 18:22 | disposition home or self-care (01) | DRG 460 ==
LOC: ACINP 05:28 → MS3 17:54
PROVIDERS: Anesthesiology; Admitting Provider Orthopaedic Surgery Orthopaedic Surgery of the Spine; PCP Family Medicine; Referring Provider Orthopaedic Surgery Orthopaedic Surgery of the Spine; Visit Provider Orthopaedic Surgery Orthopaedic Surgery of the Spine
PROC: 0SG13AJ Fusion of 2 or more Lumbar Vertebral Joints with Interbody Fusion Device, Posterior Approach, Anterior Column, Percutaneous Approach (ICD-10-PCS; principal; 2023-05-14 07:00)
DX: M48.061 Spinal stenosis, lumbar region without neurogenic claudication (principal); E78.5 Hyperlipidemia, unspecified; J44.9 Chronic obstructive pulmonary disease, unspecified; I10 Essential (primary) hypertension; M48.07 Spinal stenosis, lumbosacral region; M54.16 Radiculopathy, lumbar region; G47.33 Obstructive sleep apnea (adult) (pediatric); K21.9 Gastro-esophageal reflux disease without esophagitis; F12.90 Cannabis use, unspecified, uncomplicated; I25.10 Atherosclerotic heart disease of native coronary artery without angina pectoris; Z87.891 Personal history of nicotine dependence; Z95.5 Presence of coronary angioplasty implant and graft; Z86.16 Personal history of COVID-19; Z98.1 Arthrodesis status; R33.9 Retention of urine, unspecified
CPT/HCPCS: 36415; 72100; 76000; 80048; 80076; 82962; 83735; 85025; 85027; 86703; 86706; 86708; 86803; 86850; 86900; 86901; 86920; 86922; 87081; 93005; 94640; 94668; 97161; 97166; A4648; C1713; J7040; J7120; A4216; J2405; J3475

== ENCOUNTER 2023-06-06 07:53 | Outpatient (RCR) | payer MEDICARE, SELFPAY ==
--- NOTE | 2023-06-06 08:36 | HP.PTEVAL ---
Patient's Visit Information Visit Information Visit Information: PATRICE LOVETT is a 72 year old M referred to Physical Therapy by Dr. Amarjit Irivng MD with a diagnosis of chronic LBP. Date of Evaluation: 06/06/23 Physical Therapist: Bj Mendez, YESSYT, OCS, CSCS Visit Plan Frequency: 1x/Week Duration: 2-4 Weeks Plan: Pt already walking at home and does not desire nor can he afford frequent visits for strengthening/mobility. Wants to take care of R quad symptoms and then wait until precautions lifted. I reviewed with him improtance of walking and gave him R quad rollout and stretches for HEP. weekly for MH , STM to R quad, DTR, stretching R quad unitl thigh pain gone, may do R quad strength also. Subjective Subjective: 2011 LB fusion and extended it 3 weeks ago with a 7 hr surgery. F/u with doctor last week and doing great. Stayed in hospital one night and very painful for first 3 nights. Not much pain lately in last 3 weeks. Takes a ES tylenol now and then but not bad. 2/10 ache now and then. H/o broken neck on 1969 and fall in 1989 which hurt LB. Does have some R quad pain over last couple weeks and is using biofreeze. Back pain was 8/10 prior to [facility] and was working at [email or web address] and got to the point where he could not work. Now is retired until can do it again. Exercises: no bending or twisting or lifting x 6 weeks. just heal up. Basic ADLs done I. hobbies: poetry and is no problem. Pain LB: Pain Intensity (Out of 10): 0 Pain Intensity Range: 0 and 2 Objective Objective: Walks into PT without antalgia or pain. Trasnfers bed and chair I, steps reciprocal without rail I, no pain. marching, heel walk, toe walk eaasy, butt kicks give some R quad pain. Tightness in R quad obvious vs L and palpable tender knot distal quad. LB ROM not tested due to precautions and pt preference to treat R quad pain and not strengthen or ROM until sees doctor again. Incisions healed and dry, mild scar tissue. ROM LE WFL outside of qud tightness R and without pain. reflexes 2/3 patella and achilles B sensation LE WNL to gross light touchin B LE strength ankles and knees 4+/5, hips 4/5 without pain. Balance/Special Test Scores Oswestry Low Back Score: 7 Goals Goal 1:: palpable knot in R quad and night pain abolished. Goal Time Frame: 2-4 Weeks Goal 2:: Pt feel back to normal with R quad Goal Time Frame: 2-4 Weeks Goal 3:: I management of condition Goal Time Frame: 2-4 Weeks Rehabilitation Potential Physical Therapy Diagnosis: R quad pain limiting comfortable sleep. Rehabilitation Potential: Good Anticipated Interventions Patient/Client Instruction: Educate patient on: Condition For the Purpose of:: To decrease pain, To increase ROM and To improve nutrient delivery to tissue Therapeutic Exercise to Include: Strength training, Flexibilty training, Passive ROM and Active ROM For the Purpose of:: To decrease pain, To increase ROM, To improve nutrient delivery to tissue and To increase tolerance to activity/condition/position Manual Therapy Techniques to Include: Mobilization, Passive ROM and Soft tissue mobilization For the Purpose of:: To decrease pain, To improve nutrient delivery to tissue and To improve muscle performance and motor function Thermo therapy (hot pack): Yes For the Purpose of:: To decrease pain Text: Thank you for the opportunity to evaluate your patient. For Medicare and Medicare HMO plans, please review the plan of care and approve it. It will need to be FAXED BACK to us at [phone] for Medicare purposes. For Medicare only, by signing this I certify the plan of care. Please let me know if there are questions or concerns regarding this plan of care. Physician Signature: Date:
--- NOTE | 2023-08-13 13:17 | HP.PT.NRP ---
Patient Information Patient Information: PATRICE LOVETT was seen in my office for initial evaluation on 06/06/23. The following Plan of Care was established for this patient: POC Established Initial Frequency: 1x/Week Initial Duration: 2-4 Weeks Anticipated Interventions Patient/Client Instruction: Educate patient on: Condition For the Purpose of:: To decrease pain, To increase ROM and To improve nutrient delivery to tissue Therapeutic Exercise to Include: Strength training, Flexibilty training, Passive ROM and Active ROM For the Purpose of:: To decrease pain, To increase ROM, To improve nutrient delivery to tissue and To increase tolerance to activity/condition/position Manual Therapy Techniques to Include: Mobilization, Passive ROM and Soft tissue mobilization For the Purpose of:: To decrease pain, To improve nutrient delivery to tissue and To improve muscle performance and motor function Thermo therapy (hot pack): Yes For the Purpose of:: To decrease pain Last Seen Last Seen: This patient was last seen in our office 06/06/23. Pertinent comments regarding their Physical therapy will appear below: Pt seen for IE and was doing well. POC established but did not attend any further visits. at this point, it has been over 2 months and I will discontinue due to nonattendance. At this point I will be discontinuing this patient from physical therapy. I would be happy to see this patient again in the future if found appropriate by the physician. Thank you! Bj Mendez, DPT, OCS, CSCS Balance/Gait/Functional tests Balance/Special Test Scores Oswestry Low Back Score: 7
== END 2023-06-06 19:00 | disposition home or self-care (01) ==
LOC: PT 07:53
PROVIDERS: PCP Family Medicine; Referring Provider Orthopaedic Surgery Orthopaedic Surgery of the Spine; Visit Provider Orthopaedic Surgery Orthopaedic Surgery of the Spine
DX: M54.16 Radiculopathy, lumbar region (principal); M54.50 Low back pain, unspecified; G89.29 Other chronic pain
CPT/HCPCS: 97161

== ENCOUNTER → 2023-12-03 | Outpatient (CLI) | payer MEDICARE, SELFPAY ==
[2023-12-03 17:29] LABS: Absolute Lymphocyte Count 2.26 X10^3/uL (0.83-4.51); Absolute Neutrophil Count 3.4 X10^3/uL (2.0-7.7); Basophil# 0.05 X10^3/uL; Basophil% 0.7 % (0-1); Eosinophil# 0.27 X10^3/uL; Eosinophils% 3.9 % (0-5); Hematocrit 38.3 % (40-54); Hemoglobin 12.3 g/dL (13.0-16.5); Lymphocyte # 2.26 X10^3/ul (0.83-4.51); Lymphocyte % 32.5 % (19-41); Mean Corp Hgb Conc 32.1 g/dL (32-36); Mean Corpuscular Hgb 29.1 pg (27.0-32.0); Mean Corpuscular Volume 90.8 fL (80-94); Mean Platelet Vol. 9.6 fl (6.2-12.0); Monocyte# 0.91 X10^3/uL; Monocyte% 13.1 % (0-10); NRBC Flagged by Analyzer 0 % (0-5); Neutrophil # 3.39 X10^3/uL (2.7-7.7); Neutrophil % 48.7 % (47-70); Platelet Count 272 K/mm3 (150-450); RBC Distribution Width CV 15.1 % (11.6-14.6); RBC Distribution Width SD 50.4 fl (35.1-43.9); Red Blood Count 4.22 M/mm3 (4.6-6.2)
[2023-12-03 18:10] LABS: BNP,B-Type NATRIURETIC PEPTIDE 92.1 pg/mL (0-100)
[2023-12-03 18:17] LABS: ALB/GLOB Ratio 0.9 RATIO (0.9-2.4); AST(SGOT) 19 U/L (15-37); Alanine Aminotransfer ALT/SGPT 19 U/L (16-61); Albumin, Serum 3.2 g/dL (3.2-5.0); Alkaline Phosphatase 93 U/L (45-117); Anion Gap 4 (5-15); BUN 5 mg/dL (7-18); BUN/Creat Ratio 5.2 RATIO (10-20); Calcium,Total 9.3 mg/dL (8.5-10.1); Chloride 103 mmol/L (98-107); Creatinine, Serum 0.96 mg/dL (0.70-1.30); EST Glomerular Filtration Rate 82 mL/min (>60); Est Glom Filt Rate - Afr Amer 99 mL/min (>60); Free T3 2.3 pg/mL (2.18-3.98); Globulin 3.7 g/dL (2.2-4.2); Glucose 91 mg/dL (74-106); Potassium 4.6 mmol/L (3.5-5.1); Protein, Total 6.9 g/dL (6.4-8.2); Sodium Level 135 mmol/L (136-145)
== END | disposition home or self-care (01) ==
LOC: BFHLAB 14:02
PROVIDERS: PCP Family Medicine; Referring Provider Family Medicine; Visit Provider Family Medicine
DX: I87.2 Venous insufficiency (chronic) (peripheral) (principal); I50.33 Acute on chronic diastolic (congestive) heart failure; R60.9 Edema, unspecified
CPT/HCPCS: 36415; 80053; 83880; 84443; 84481; 85025

== ENCOUNTER → 2023-12-10 | Outpatient (CLI) | payer MEDICARE, SELFPAY ==
--- NOTE | 2023-12-10 07:15 | MRI_ITS ---
STUDY: MRI LUMBAR SPINE WITH AND WITHOUT CONTRAST REASON FOR EXAM: Male, 73 years old. pain TECHNIQUE: Standardized fat and water weighted pulse sequences were obtained in the sagittal and axial planes. IV 15ml clariscan was administered for the contrast portion of the examination. COMPARISON: Lumbar spine radiographs November 13, 2023. MRI lumbar spine November 27, 2022. FINDINGS: New posterior interbody fusion rods and pedicular screws L3, L5 and S1. T12-L1: Normal endplates. Normal disc height, hydration and morphology. Normal bilateral facet joints. Normal central canal and bilateral lateral recesses. Normal bilateral intervertebral neural foramina. Normal lumbar lordosis. There is no substantial scoliosis. Normal conus medullaris that terminates at the L1 level. L1-2: Normal endplates. Normal disc height, hydration and morphology. Normal bilateral facet joints. Normal central canal and bilateral lateral recesses. Normal bilateral intervertebral neural foramina. L2-3: Normal endplates. Normal disc height, hydration and morphology. Hypertrophic bilateral facet joints. Mild trefoil type narrowing central canal and bilateral lateral recesses. Moderate narrowing bilateral intervertebral neural foramina. L3-4: Metallic disc spacer. Hypertrophic facets causing moderate narrowing of the neural foramina bilaterally. Central canal patent. L4-5: Normal endplates. Normal disc height, hydration and morphology. Normal bilateral facet joints. Normal central canal and bilateral lateral recesses. Normal bilateral intervertebral neural foramina. Disc spacer. L5-S1: Normal endplates. Normal disc height, hydration and morphology. Hypertrophic bilateral facet joints. Normal central canal and bilateral lateral recesses. Moderate narrowing bilateral intervertebral neural foramina. Disc spacer. Normal visualized sacral ala. Normal visualized paraspinous soft tissue structures. Subcutaneous edema interspinous region at L3-L5. MRI/Spine Lumbar W/WO Contrast IMPRESSION: Interval posterior interbody fusion L3-S1. Multilevel bilateral neural foraminal narrowing. Mild spinal stenosis L2-3. Electronically Signed: Jensen Garza MD at 23:59 EDT ,
== END | disposition home or self-care (01) ==
PROVIDERS: PCP Family Medicine; Referring Provider Orthopaedic Surgery Orthopaedic Surgery of the Spine; Visit Provider Orthopaedic Surgery Orthopaedic Surgery of the Spine
DX: M54.16 Radiculopathy, lumbar region (principal)
CPT/HCPCS: 72158; A9575

== ENCOUNTER → 2023-12-25 | Outpatient (CLI) | payer MEDICARE, SELFPAY ==
--- NOTE | 2023-12-25 13:49 | VDLE_ITS ---
Reason For Study: EDEMA / RIGHT LEFT CFV is compressible, phasic, and INCOMPETENT CFV is compressible, phasic, and INCOMPETENT for greater than 1.0 second. for greater than 1.0 second. FV is compressible, phasic, and INCOMPETENT FV is compressible, phasic, and INCOMPETENT for greater than 1.0 second. for greater than 1.0 second. POP V is compressible, spontaneous, phasic, POP V is compressible, spontaneous, phasic, competent and demonstrates normal competent and demonstrates normal augmentation. augmentation. T/P Trunk is compressible. T/P Trunk is compressible. PTV is compressible. PTV is compressible. RT PerV is compressible. LT PerV is compressible. SFJ is INCOMPETENT and measures 0.57 cm. SFJ is INCOMPETENT and measures 0.59 cm. GSV proximal thigh measures 0.49 x 0.47 cm. GSV proximal thigh measures 0.36 x 0.34 cm. GSV at knee measures 0.57 x 0.58 cm. GSV at knee measures 0.47 x 0.47 cm. GSV INCOMPETENT throughout for greater than GSV INCOMPETENT throughout for greater than 0.5 seconds. 0.5 seconds. SSV proximal calf is competent and measures SSV proximal calf is competent and measures 0.21 x 0.22 cm. 0.19 x 0.19 cm. Perforating Vessel mid calf is INCOMPETENT Perforating Vessel mid/dist thigh is for greater than 0.5 seconds and measures INCOMPETENT for greater than 0.5 seconds and 0.49 cm. measures 0.42 cm Varicosities posterior calf appear to branch Perforating Vessel mid calf is INCOMPETENT from GSV at knee. for greater than 0.5 seconds and measures Procedure 0.44 cm Exam performed in department. Varicosities mid/medial calf appear to branch This is a venous duplex using B-mode, color from perforating vessel at mid calf and GSV flow and spectral Doppler. dist thigh. The exam was diagnostic. VL/Venous Duplex US - Melvin Extrem Interpretation Summary Deep veins of the bilateral lower extremities are patent and compressible segme ntally. There is no evidence of bilateral lower extremity deep vein thrombosis. The bilateral great saphenous veins appear patent and compressible segmentally. Positive for reflux in the right common femoral vein, femoral vein, saphenofemo ral junction, great saphenous vein, mid calf narrow fabric loom fixer. Positive for reflux in the left common femoral vein, femoral vein, saphenofemor al junction, great saphenous vein, thigh narrow fabric loom fixer and calf narrow fabric loom fixer. Ordering Physician: Beulah Catherine Referring Physician: Beulah Catherine Performed By: Mane Friedman RVT
--- NOTE | 2023-12-25 13:49 | ECHOD_ITS ---
Reason For Study: PUGA, Edema Procedure This was a 2D Doppler, Color Flow transthoracic echocardiogram. Exam performed portable in patient room. Left Ventricle Normal LV size. Left ventricular systolic function is normal. The left ventricular ejection fraction is 65 %. No regional wall motion abnormalities noted. Right Ventricle Normal RV size. Normal systolic function. Atria Normal left atrium. Normal right atrium. Mitral Valve There is mild to moderate mitral annular calcification. Mild-Moderate (1-2+) eccentric mitral valve insufficiency. Tricuspid Valve Normal tricuspid valve. Mild (1+) tricuspid valve insufficiency. Pulmonary artery systolic pressure is 28 mmHg. Aortic Valve Trisinus/trileaflet aortic valve. Mild focal aortic valve calcification. Peak aortic valve gradient 60 mmHg. Mean aortic valve gradient 34 mmHg. Moderate to severe aortic stenosis. Mild (1+) aortic valve insufficiency. Pulmonic Valve Normal pulmonic valve. Great Vessels Normal aortic root. The pulmonary artery is normal size. Inferior vena cava collapse with respiration. Pericardium/Pleural No pericardial effusion. MMode/2D Measurements & Calculations LVIDd: 4.2 cm IVSd: 1.3 cm LVOT diam: 2.0 cm LVIDs: 2.6 cm LVPWd: 1.1 cm LVOT area: 3.2 cm2 RVDd: 3.5 cm FS: 39.0 % asc Aorta Diam: 3.6 cm LAV(MOD-bp): 61.5 ml LVAd ap4: 28.3 cm2 LAV(MOD-bp) Indexed: 31.6 ml/m2 LVLd ap4: 8.3 cm LAV(MOD-sp2): 63.5 ml EDV(MOD-sp4): 79.9 ml LAV(MOD-sp4): 57.1 ml EDV(sp4-el): 81.9 ml LVAs ap4: 14.7 cm2 LVLs ap4: 6.7 cm ESV(MOD-sp4): 27.5 ml ESV(sp4-el): 27.4 ml EF(MOD-sp4): 65.5 % EF(sp4-el): 66.6 % LVAd ap2: 28.2 cm2 SV(MOD-sp4): 52.3 ml SV(MOD-sp2): 53.7 ml LVLd ap2: 8.4 cm EDV(MOD-sp2): 83.4 ml EDV(sp2-el): 80.3 ml LVAs ap2: 14.9 cm2 LVLs ap2: 6.7 cm ESV(MOD-sp2): 29.7 ml ESV(sp2-el): 28.1 ml EF(MOD-sp2): 64.4 % SV(sp4-el): 54.5 ml LA dimension(2D): 3.5 cm LA A4 area: 20.3 cm2 RA A4 area: 16.8 cm2 TAPSE: 2.1 cm Time Measurements MV dec time: 0.19 sec Doppler Measurements & Calculations MV E max kenneth: 92.5 cm/sec Lat Peak E' Kenneth: 7.9 cm/sec Med Peak E' Kenneth: 7.0 cm/sec MV A max kenneth: 78.8 cm/sec E/E' lat: 11.8 E/E' med: 13.2 MV E/A: 1.2 Ao V2 max: 386.0 cm/sec AI max kenneth: 316.3 cm/sec MV dec slope: 485.5 cm/sec2 Ao max P.7 mmHg AI max P.0 mmHg Ao V2 mean: 272.0 cm/sec Ao mean P.6 mmHg AI dec slope: 140.0 cm/sec2 Ao V2 VTI: 107.9 cm AI P1/2t: 661.6 msec AV (velocity ratio): 0.27 SHEKHAR(I,D): 0.86 cm2 SHEKHAR(V,D): 0.89 cm2 LV V1 max: 107.1 cm/sec SV(LVOT): 92.5 ml PA V2 max: 71.1 cm/sec LV V1 max P.6 mmHg PA max PG (full): 1.2 mmHg LV V1 mean P.4 mmHg LV V1 mean: 73.0 cm/sec LV V1 VTI: 28.8 cm TR max kenneth: 244.7 cm/sec TR max P.9 mmHg ECHO/Echo Complete Interpretation Summary Normal LV size. Left ventricular systolic function is normal. The left ventricular ejection fraction is 65 %. Peak aortic valve gradient 60 mmHg. Mean aortic valve gradient 34 mmHg. Moderate to severe aortic stenosis. Ordering Physician: Beulah Catherine Referring Physician: Beulah Catherine Performed By: Betsy Figueroa RDCS and Student
== END | disposition home or self-care (01) ==
LOC: CVS 13:46
PROVIDERS: PCP Family Medicine; Referring Provider Family Medicine; Visit Provider Family Medicine
DX: I87.2 Venous insufficiency (chronic) (peripheral) (principal); I73.9 Peripheral vascular disease, unspecified; R06.00 Dyspnea, unspecified; R60.0 Localized edema
CPT/HCPCS: 93306; 93970

== ENCOUNTER → 2024-03-10 | Outpatient (CLI) | payer MEDICARE, SELFPAY | END | disposition home or self-care (01) | LOC: PSN 07:55 | PROVIDERS: PCP Family Medicine; Referring Provider Nurse Practitioner Acute Care; Visit Provider Nurse Practitioner Acute Care | DX: F17.210 Nicotine dependence, cigarettes, uncomplicated (principal) | CPT/HCPCS: 94060; 94726; 94729 ==

== ENCOUNTER → 2024-03-12 | Outpatient (CLI) | payer MEDICARE, SELFPAY ==
[2024-03-12 12:30] VITALS: PULSE 60; PULSE 69; PULSE 74; PULSE 75; PULSE 77; O2SAT 91; O2SAT 92; O2SAT 93; O2SAT 95
--- NOTE | 2024-03-15 11:02 | PCM.PSN.6M ---
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 used: None Pre-test Oxygen Delivery Method Room Air Pulse Ox (%) 95 Pulse Rate (60-100 beats/min) 60 Dyspnea Cynthia Scale (0-10) 1 Exertion Cynthia Scale (6-20) 6 1st minute Oxygen Delivery Method Room Air Pulse Ox (%) 95 Pulse Rate (60-100 beats/min) 75 2nd minute Oxygen Delivery Method Room Air Pulse Ox (%) 93 Pulse Rate (60-100 beats/min) 75 3rd minute Oxygen Delivery Method Room Air Pulse Ox (%) 93 Pulse Rate (60-100 beats/min) 75 4th minute Oxygen Delivery Method Room Air Pulse Ox (%) 92 Pulse Rate (60-100 beats/min) 74 5th minute Oxygen Delivery Method Room Air Pulse Ox (%) 91 Pulse Rate (60-100 beats/min) 77 6th minute Oxygen Delivery Method Room Air Pulse Ox (%) 92 Pulse Rate (60-100 beats/min) 77 Post-test Oxygen Delivery Method Room Air Pulse Ox (%) 93 Pulse Rate (60-100 beats/min) 69 Dyspnea Cynthia Scale (0-10) 3 Exertion Cynthia Scale (6-20) 14 Full Laps Walked 19 Partial Lap, Number of Tiles Walked 0 Total Distance Walked (ft) 1121 Interpretation Interpretation: The patient ambulated 1121 feet over the course of 6 minutes beginning on room air without assistive devices. Pretesting oxygen saturation was noted to be 95% on room air. With ambulation, the emiliano oxygen saturation was 91%. There was no significant exertional oxygen desaturation. Recommendations Recommendations: There is no indication for the use of supplemental oxygen at this time.
== END | disposition home or self-care (01) ==
LOC: PSN 12:16
PROVIDERS: PCP Family Medicine; Referring Provider Nurse Practitioner Acute Care; Visit Provider Nurse Practitioner Acute Care
DX: F17.210 Nicotine dependence, cigarettes, uncomplicated (principal)
CPT/HCPCS: 94618

== ENCOUNTER → 2024-03-25 | Outpatient (CLI) | payer MEDICARE, SELFPAY ==
--- NOTE | 2024-03-25 08:13 | CT_ITS ---
STUDY: LOW DOSE CT LUNG CANCER SCREENING REASON FOR EXAM: Male, 73 years old. 1 1/2 pack per day smoker x20 years, quit in 1999 RADIATION DOSAGE (If Supplied By Facility): CTDIvol = ( 3.02 ) mGy, DLP = ( 93.27 ) mGycm TECHNIQUE: No contrast was administered. Low dose technique was utilized (average mAS-38 and kVp 120). 1.25 mm axial source images with a slice interval of 1.25-mm were reconstructed in lung windows. 2.5 mm axial source images with a slice interval of 2.5-mm were reconstructed in lung windows. 5.0 mm axial source images with a slice interval of 5.0-mm were reconstructed in soft tissue windows. COMPARISON: 2014 FINDINGS: Lung windows show underlying emphysema with bleb formation throughout both lung torres and honeycombing in the periphery of both lung torres. There are chronic interstitial changes in both lung torres with bilateral bronchiectatic changes. There is no organized infiltrate, effusion or suspicious noncalcified mass or nodule. Limited soft tissue windows show normal-appearing thyroid gland. No suspicious axillary, mediastinal or perihilar adenopathy. There are calcified coronary vessels. Bony structures show degenerative change CT/Low Dose CT Lung Screening IMPRESSION: Lung-RADS category 2 - Continue annual screening with LDCT in 12 months. IMPORTANT NOTES FOR USE: ACR Lung-RADS Version 1.1 Assessment Categories Release Date: 2018 Category: Coded 0-4 bases on nodule(s) with highest degree of suspicion. Negative screen is defined as categories 1 and 2; a positive screen is defined as categories 3 and 4. Category 3 and 4A nodules that are unchanged on interval CT should be coded as category 2, and individuals returned to screening in 12 months. Category 4X: Category 3 or 4 nodules with additional imaging findings that increase the suspicion of lung cancer, such as spiculation, GGN that doubles in size in 1 year, enlarged lymph notes, etc. Category Modifiers: S (significant finding unrelated to lung cancer) Electronically Signed: Nathanael Hannah MD at 15:30 EST ,
== END | disposition home or self-care (01) ==
LOC: CT 08:13
PROVIDERS: PCP Family Medicine; Referring Provider Nurse Practitioner Acute Care; Visit Provider Nurse Practitioner Acute Care
DX: Z12.2 Encounter for screening for malignant neoplasm of respiratory organs (principal); F17.210 Nicotine dependence, cigarettes, uncomplicated
CPT/HCPCS: 71271

== ENCOUNTER → 2024-03-30 | Outpatient (CLI) | payer MEDICARE, SELFPAY ==
--- NOTE | 2024-03-30 07:51 | CDU_ITS ---
Reason For Study: Bilateral Carotid Bruit Rt. Velocities/BP Lt. Velocities/BP Prox CCA 68.6/13.8 cm/sec. Prox CCA 81.8/20.4 cm/sec. Mid CCA 58.2/16.6 cm/sec. Mid CCA 69.5/23.2 cm/sec. Dist CCA 47.8/14.7 cm/sec. Dist CCA 56.3/15.7 cm/sec. Prox ICA 84.6/19.5 cm/sec. Prox ICA 41.2/16.6 cm/sec. Mid ICA 54.8/16.0 cm/sec. Mid ICA 46.4/16.1 cm/sec. Dist ICA 55.4/18.5 cm/sec. Dist ICA 68.7/23.0 cm/sec. Rt. ICA/CCA = 1.5. Lt. ICA/CCA = 1.0. Prox ECA 49.7/7.2 cm/sec. Prox ECA 206.3/22.3 cm/sec. Rt. Vert. 38.6/14.1 cm/sec. Lt. Vert. 38.4/12.8 cm/sec. Right Extracranial There is intimal thickening but no significant atherosclerotic plaque noted in the right common carotid artery. There is heterogeneous, irregular atherosclerotic plaque noted in the right internal carotid artery. There is heterogeneous, irregular atherosclerotic plaque noted in the right external carotid artery. Antegrade flow is noted in the right vertebral artery. Left Extracranial There is intimal thickening but no significant atherosclerotic plaque noted in the left common carotid artery. There is heterogeneous, irregular atherosclerotic plaque noted in the left internal carotid artery. The atherosclerotic plaque causes acoustic shadowing. There is heterogeneous, irregular atherosclerotic plaque noted in the left external carotid artery. Antegrade flow is noted in the left vertebral artery. Procedure Carotid Duplex 16354. This is a Carotid Duplex examination using B-mode, color flow and specral Doppler. The exam was diagnostic. Exam performed in department. VL/Carotid Duplex Ultrasound Interpretation Summary Mild (<50%) stenosis right extracranial internal carotid. Mild (<50%) stenosis left extracranial internal carotid. Patent and antegrade vertebrals bilaterally. Ordering Physician: Bernard Bullock Referring Physician: Beulah Catherine Performed By: Mane Friedman RVT
== END | disposition home or self-care (01) ==
PROVIDERS: PCP Family Medicine; Referring Provider Internal Medicine Cardiovascular Disease; Visit Provider Internal Medicine Cardiovascular Disease
DX: R09.89 Other specified symptoms and signs involving the circulatory and respiratory systems (principal)
CPT/HCPCS: 93880

== ENCOUNTER → 2024-03-31 | Outpatient (CLI) | payer MEDICARE, SELFPAY ==
[2024-03-31 10:14] LABS: Absolute Neutrophil Count 4.2 X10^3/uL (2.0-7.7); Basophil# 0.06 X10^3/uL; Basophil% 0.8 % (0-1); Eosinophil# 0.35 X10^3/uL; Eosinophils% 4.4 % (0-5); Hemoglobin 13.5 g/dL (13.0-16.5); Lymphocyte % 30.2 % (19-41); Mean Corp Hgb Conc 33.8 g/dL (32-36); Mean Corpuscular Hgb 29.4 pg (27.0-32.0); Mean Corpuscular Volume 87.1 fL (80-94); Mean Platelet Vol. 10.3 fl (6.2-12.0); Monocyte# 0.94 X10^3/uL; Monocyte% 11.8 % (0-10); NRBC Flagged by Analyzer 0 % (0-5); Neutrophil # 4.15 X10^3/uL (2.7-7.7); Platelet Count 157 K/mm3 (150-450); RBC Distribution Width CV 14.7 % (11.6-14.6); RBC Distribution Width SD 46.8 fl (35.1-43.9); Red Blood Count 4.59 M/mm3 (4.6-6.2)
[2024-03-31 10:52] LABS: ALB/GLOB Ratio 0.9 RATIO (0.9-2.4); AST(SGOT) 18 U/L (15-37); Alanine Aminotransfer ALT/SGPT 17 U/L (16-61); Albumin, Serum 3.4 g/dL (3.2-5.0); Alkaline Phosphatase 86 U/L (45-117); Anion Gap 6 (5-15); BUN 10 mg/dL (7-18); BUN/Creat Ratio 8.4 RATIO (10-20); Calcium,Total 9.1 mg/dL (8.5-10.1); Chloride 101 mmol/L (98-107); Creatinine, Serum 1.19 mg/dL (0.70-1.30); EST Glomerular Filtration Rate 63 mL/min (>60); Est Glom Filt Rate - Afr Amer 77 mL/min (>60); Globulin 3.9 g/dL (2.2-4.2); Glucose 118 mg/dL (74-106); Potassium 3.8 mmol/L (3.5-5.1); Protein, Total 7.3 g/dL (6.4-8.2); Sodium Level 136 mmol/L (136-145)
== END | disposition home or self-care (01) ==
LOC: MTLAB 08:19
PROVIDERS: PCP Family Medicine
DX: I35.0 Nonrheumatic aortic (valve) stenosis (principal)
CPT/HCPCS: 36415; 80053; 85025

== ENCOUNTER → 2024-04-13 | Outpatient (CLI) | payer MEDICARE, SELFPAY ==
[2024-04-13 13:15] LABS: Anion Gap 8 (5-15); BUN 5 mg/dL (7-18); Calcium,Total 9.4 mg/dL (8.5-10.1); Chloride 104 mmol/L (98-107); EST Glomerular Filtration Rate 78 mL/min (>60); Est Glom Filt Rate - Afr Amer 94 mL/min (>60); Glucose 100 mg/dL (74-106); Potassium 4.3 mmol/L (3.5-5.1); Sodium Level 138 mmol/L (136-145)
[2024-04-14 14:08] LABS: ANTINUCLEAR ANTIBODIES DIRECT Negative (Negative)
[2024-04-14 16:08] LABS: CCP IgG Antibodies 3 units (0-19); Cytoplasmic Ab (C-ANCA) <1:20 titer (Neg:<1:20); Perinuclear Ab (P-ANCA) <1:20 titer (Neg:<1:20)
== END | disposition home or self-care (01) ==
LOC: MTLAB 10:03
PROVIDERS: Nurse Practitioner Family; PCP Family Medicine; Referring Provider Nurse Practitioner Adult Health; Visit Provider Nurse Practitioner Adult Health
DX: I35.0 Nonrheumatic aortic (valve) stenosis (principal)
CPT/HCPCS: 36415; 80048; 86037; 86038; 86200; 86225; 86235; 86431

== ENCOUNTER → 2024-06-01 | Outpatient (CLI) | payer MEDICARE, SELFPAY ==
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
--- NOTE | 2024-06-01 10:08 | PCM.CR.ITP ---
Diagnosis General Information Admitting Diagnosis: TAVR Personal Learning Style:: Audio/Visual Barriers to Learning: No Barriers Stage of change r/t lifestyle modifications:: Contemplation Gave educational material for:: Treating Heart Disease, How The Heart Works, What it means to have Heart Disease, How Coronary Artery Disease is Diagnosed, Heart Procedures, What Heart Medications Do, Risk Factors & Modifications, Living an Active Life, Nutrition, Emotions & Heart Disease, Stress Management & Relaxation and Sleep Disorders & Heart Disease Education/Goals Cardiac Rehabilitation Goals Personal Goals: Initial Assessment: Improve energy level, Get back to work, or to resume activities faster, Improve knowledge of cardiac disease, Improve muscle strength and endurance, Improve diet and eating habits (eat healthier) and Control risk factors (learn risk factor modification) Scale for measuring improvement of personal goals Diagnosis & Disease Process Outcomes/Goals: Pt IDs own risk factors & lifestyle modifications by Session 10, Verbalizes symptoms of angina & response by session 3., Pt independently manages and Other Additional Outcomes/Goals: Plan/Interventions: Assist Pt to ID & engage in lifestyle modification to reduce CVD risk, Instruct on individual risk factors, Review symptoms of angina & emergency actions, Review secondary diagnosis & identify educational needs. and Other see comment 30 day Reassessments:: Not Met 30 day Reassessments:: Not Met 30 day Reassessments:: Not Met 30 day Reassessments:: Not Met Final Reassessments:: Not Met Safety Referral to Physical Therapy: No Referral to [facility] Case Management: No Fall Risk Assessed:: Yes Assistive Devices:: None Exercise - Initial Assessment Visit Date of Eval: 06/01/24 (initial eval) Mets: Pre-: >3 METS for 30 minutes by discharge, >5 METS for 30 minutes by discharge, >7 METS for 30 minutes by discharge and Unable to meet goal due to: (see comment below) Physician Prescribed Exercise Modalities: Treadmill, Schwinn Airdyne AD-7, SciFit Stepper, SciFit Pro-II Ergometer and SciFit Lateral Web Press Roll Tender Frequency: 3x/week for 12 weeks [36 sessions] Intensity: 60-80% of age predicted maximum heart rate reserve Duration: 30 - 45 minutes Current METSs:: 3 Target Heart Rate:: 87-110 Resting Blood Pressure: 120/62 EKG Type: SB Outcomes & Goals Goals:: Verbalizes understanding of THR, RPE & goal METS by session 6, Documents in home exercise log/reports 30 min aerobic 5 day/wk by DC, Demonstrates accurate pulse taking by DC and Other additional outcome/goals: see below Intervention & Plan Exercise Program Goals: Instruct on personal THR & RPE, Instruct on MET level & personal MET goal, Show patient to take own pulse /validate performance until accurate, Instruct on home exercise and Other additional plan/int Physical Activity Home Exercise Physical Activity - Home Exercise: Safe Exercise, Warm-up, Self-monitoring, Cool-Down, Home Exercise > 30 min Daily and Sitting Time <3 hours/daily Outcomes & Goals Outcomes/Goals: Demonstrates correct Warm-up/exercise Cool-Down (S3) if = 2.5 METs, Verbalizes symptoms of exercise intolerance by Session 3 (S3), Demonstrate safe equipment use (S3) & follows exercise prescrition (6) and Other: See below Intervention & Plan Plan/Intervention: Instruct warm-up & cool-down if exercising at > 2 METs, Instruct on symptoms of exercise intolerance & actions to take, Instruct & monitor on saf, Assess intial functional capacity & safety risk and Other See below Nutrition - Initial Assessment Program Goals Nutrition Program Goals Patient has diagnosis of Hyperlipidemia (ICD E78)?: Yes Visit Date of Eval: 06/01/24 (initial eval ) Cholesterol/Lipids (Other Core Measures) Determine presence & major risk factors that modify LDL goal: Cigarette smoking, Hypertension or hypertensive medication, Low HDL cholesterol <40 mg/dL*, Family history of premature CHD in Male < 55 years: female <65 yearsFa and Age men > 45 years; women >/= 55 years Outcomes/Goals: Pt IDs own risk factors & lifestyle modifications by Session 10, Verbalizes symptoms of angina & response by session 3., Pt independently manages and Other Additional Outcomes/Goals: Intervention/Plan: Advocate for lipid panel cholesterol medication if applicable, Instruct on personal lipid levels & lipid goals/NCEP guidelines, Instruct on cholesterol and Other additional plan/int Referral to dietitian:: No Diabetes (Other Core Measures) Diabetes Type: Not Applicable Weight Mgt (Other Care) Height: 5 ft 11 in Weight:: 175 lb BMI: 24.4 Diagnosis Overweight/Obesity BMI> 30% ICD-10 E66: No Diagnosis High BMI/Morbid Obesity BMI> 35% ICD-10 Z68: No Outcomes/Goals: Pt sets, maintains & shows weight loss goal & trend during rehab and Other additional outcomes/goals Intervention/Plan: Instruct on ideal BMI & set weight loss goal w/patient, Assist pt to ID & incorporate diet changes for weight loss by S9, Refer to Structured Weight Loss program as appropriate, Encourage goal of using 250-300dcal per session for weight loss and Other additional plan/interventions Healthy Eating Habits Will attend diet classes:: Yes Outcomes/Goals:: Consume diet rich in vegs,fruits,whole grain/high fiber,fish,lean meat, Limit sat/trans fats,cholesterol & added salts & sugars and Other additional outcome/goals: Intervention/Plan:: Assess current eating habits and Other Additional plan/interventions Core - Initial Assessment Visit Date of Eval: 06/01/24 (initial eval ) Medication Compliance Preventative Medication(s):: Aspirin, Clopidogrel/P2Y12 inhibit, Statin/lipid and Beta christina H/O mental health issues: depression, anxiety, or addiction?: No Doesn?t believe in the benefits of treatment?: No Believes medications are unnecessary or harmful?: No Has a concern about medication side effects?: No Expresses concern over the cost of medications?: No Outcomes/Goals: Verbalizes medications,desired effect & common side effects @ DC, Pt self-reports following medication regimen, Keeps card in wallet w/medications listed by DC and Other additional outcome/goals: Interventions/plans: Instruct on medication effects & side effects, Review medication list w/patient every two weeks, Instruct importance of taking meds as ordered & assist problem solving and Other additional Tobacco Use Tobacco Use: Non-smoker How long ago did you quit using tobacco products?: Greater than or equal to 6 months ago Years Smokin (Pt stopped in June of 1999) Do you use smokeless tobacco?: No Outcomes/Goals: Smoking cessation achieved or maintained by discharge, Identify aids/strategies for achieving smoking cessation by session 6 and Other additional outcome/goals Interventions/plan: Instruct on effects of smoking & provide smoking cessation resource, Assist pt to set quit date & provide encouragement, Assist pt to develop strategies to achieve/maintain quit date, Assist pt w/nicotine replacement & medication for cessation success and Other additional plan/interventions Hypertension Hypertension Diagnosis:: Hypertension ICD-10 I10 Resting Blood Pressure:: 120/62 [place] [employer] Hypertension Guidelines Outcomes/Goals: Able to verbalize/achieve optimal blood pressure <130/80, Incorporates diet changes & exercise for blood pressure control by DC and Other additional outcomes/goals Interventions/plan: Instruct on optimal blood pressure, hypertension & medications, Instruct on effects of sodium, alcohol, stress, exercise &hypertension and Other additional plan/interventions Tobacco Cessation Referral Smoking Cessation Referral:: No Individual Education/Counseling:: No Education Schedule Given:: Yes Psychosocial - Initial Assess VIsit Date of Eval: 06/01/24 (initial eval ) History of previous Mental disease:: No Target Goals Target Goals Psychosocial Test Tool Used:: [employer] QOL Cardiac and PHQ-9 Questionnaire phq-9 Severity Referral to Behavioral Health PS - Interventions: Yes: Attend Stress Management Classes Outcomes/Goals: See list Psychosocial Outcomes/Goals:: ID's personal stressors & 2 strategies to manage stress by discharge and Other Additional outcome/goals: Intervention/Plan: See List Interventions/Plan:: Assess stressors,coping strategies & signs of derpression on admission, Instruct/assist pt to develop coping & personal stress Mgt strategies, Refer to Behavioral Health if appropriate, Refer to Physician if appropriate, Instruct patient to recognize signs & symptoms of depression, Instruct patient to recog and Other additional plan/intervention Patient Health Questionnaire PHQ-9 Screening Initial Assessment: 1. Little interest or pleasure in doing things: Not at all 2. Feeling down, depressed, or hopeless: Not at all 3. Trouble falling or staying asleep, or sleeping too much: Not at all 4. Feeling tired or having little energy: Several days 5. Poor appetite or overeating: Not at all 6. Feeling bad about yourself -- or that you are a failure or have let yourself or your family down: Not at all 7. Trouble concentrating on things, such as reading the newspaper or watching television: Not at all 8. Moving or speaking so slowly that other people could have noticed. Or the opposite - being so fidgety or restless that you have been moving around a lot more than usual: Not at all 9. Thoughts that you would be better off , or of hurting yourself in some way: Not at all How difficult have these problems made it for you to do your work, take care of things at home, or get along with other people?: Not difficult at all Total Score: 1 TEMO-Q SV Test Statements CAD is a disease of the arteries in the heart: False Examples of risk factors for heart disease: True Angina is chest pain or discomfort: True The benefits of resistance training include: True Eating more meat and dairy products: False Anti-platelet medications such as aspirin are important: True The only effective way to manage stress: False An exercise warm-up slowly increases heart rate: I Don't Know Prepared, processed foods usually have high sodium: True Depression is common after a heart attack: True The statin medications lower cholesterol: True To control blood pressure, lower the amount of sodium: I Don't Know If someone gets chest discomfort during walking: False Transfats are partially hydrogenated vegetable oils: I Don't Know Sleep apnea that is not treated increases the risk: False To control cholesterol, one should become a vegetarian: False Someone knows if he/she is exercising at the right level: True Diabetes cannot be prevented with exercise & health eating: False Stress is a large risk for heart attack: True A diet that can help lower blood pressure is rich in: I Don't Know Total Score Total Correct Responses: 16 Self-Efficacy 6-Item Scale Initial Assessment: We would like to know how confident you are in doing certain activities. Please select your confidence level for: Fatigue Select Number: 10 Physical Discomfort or Pain Select Number: 10 Emotional Distress Select Number: 7 Other Symptoms or Health Problems Select Number: 10 Different Tasks and Activities Select Number: 6 Medication Nutrition Survey Nutrition Survey Instructions Scoring Instructions Nutrition Survey Initial: Have you lost >10 lbs over the past 2 months without trying?: No Are you following a special diet at home for diabetes, low fat, or low salt?: No Are you interested in meeting with a dietitian for help understanding your diet?: No Do you eat less than 3 meals a day?: Yes Do you eat fatty meats (jesus, sausage, ribs, etc), fried foods, desserts, large amounts of salad dressings, margarine, butter, or cheese most days?: No Do you have food allergies? [Enter types in comment field]: No Do you eat in restaurants more than 3 times a week?: No Do you season food with salt, seasoning salt, or garlic salt?: Yes Do you used canned, boxed, frozen meals, or soups, seasoning packets?: No Total Score:: 2 Exercise - 30-day Assessment Physician Prescribed Exercise Modalities: Treadmill, Christina Estevez AD-7, SciFit Stepper, SciFit Pro-II Ergometer and SciFit Lateral Web Press Roll Tender Exercise - 60-day Assessment Physician Prescribed Exercise Modalities: Treadmill, Schwinn Airdyne AD-7, SciFit Stepper, SciFit Pro-II Ergometer and SciFit Lateral [place] Exercise - 90-day Assessment Physician Prescribed Exercise Modalities: Treadmill, Schwinn Airdyne AD-7, SciFit Stepper, SciFit Pro-II Ergometer and SciFit Lateral Web Press Roll Tender Exercise - Final/Discharge Physician Prescribed Exercise Modalities: Treadmill, Schwinn Airdyne AD-7, SciFit Stepper, SciFit Pro-II Ergometer and SciFit Lateral [place] Frequency: 3x/week for 12 weeks [36 sessions] Intensity: 60-80% of age predicted maximum heart rate reserve Current METSs:: 3 Target Heart Rate:: 87-110 Nutrition - 30-Day Assessment Weight Mgt (Other Care) Height: 5 ft 11 in Weight:: 175 lb BMI: 24.4 Nutrition - 60-Day Assessment Weight Mgt (Other Care) Height: 5 ft 11 in Weight:: 175 lb BMI: 24.4 Core - 30-Day Assessment Tobacco Use Years Smokin (Pt stopped in June of 1999) Core - Final Assessment Hypertension Resting Blood Pressure:: 120/62 [place] [employer] Hypertension Guidelines Core - 60-Day Assessment Hypertension Resting Blood Pressure:: 120/62 [place] [employer] Hypertension Guidelines Psychosocial - 30-Day Assess Target Goals Target Goals Referral to Behavioral Health PS - Interventions: Yes: Attend Stress Management Classes Psychosocial - 60-Day Assess Target Goals Target Goals Referral to Behavioral Health PS - Interventions: Yes: Attend Stress Management Classes Psychosocial - 90-Day Assess Target Goals Target Goals Referral to Behavioral Health PS - Interventions: Yes: Attend Stress Management Classes Psychosocial - Final Assessmen Target Goals Target Goals Referral to Behavioral Health PS - Interventions: Yes: Attend Stress Management Classes Nutrition - 90-Day Assessment Weight Mgt (Other Care) Height: 5 ft 11 in Weight:: 175 lb BMI: 24.4 Nutrition - Final Assessment Program Goals Patient has diagnosis of Hyperlipidemia (ICD E78)?: Yes Weight Mgt (Other Care) Height: 5 ft 11 in Weight:: 175 lb BMI: 24.4
[2024-06-01 10:26] VITALS: BP 120/60; BP 120/62; PULSE 59; O2SAT 96
[2024-06-01 11:02] VITALS: BP 120/62
[2024-06-01 11:03] VITALS: BMI 24.4
[2024-06-01 11:04] VITALS: BMI 24.4
== END | disposition home or self-care (01) ==
LOC: CR 09:53
PROVIDERS: PCP Family Medicine; Referring Provider Internal Medicine Cardiovascular Disease; Visit Provider Internal Medicine Cardiovascular Disease
DX: Z95.2 Presence of prosthetic heart valve (principal)

== ENCOUNTER → 2024-06-04 | Outpatient (CLI) | payer MEDICARE, SELFPAY ==
[2024-06-01 11:03] VITALS: BMI 24.4
[2024-06-04 11:35] LABS: Hematocrit 39.9 % (40-54); Hemoglobin 12.9 g/dL (13.0-16.5); Mean Corp Hgb Conc 32.3 g/dL (32-36); Mean Corpuscular Hgb 29.9 pg (27.0-32.0); Mean Corpuscular Volume 92.4 fL (80-94); Mean Platelet Vol. 9.5 fl (6.2-12.0); Platelet Count 148 K/mm3 (150-450); RBC Distribution Width CV 14.9 % (11.6-14.6); RBC Distribution Width SD 50.6 fl (35.1-43.9); Red Blood Count 4.32 M/mm3 (4.6-6.2); White Blood Count 8.7 K/mm3 (4.4-11.0)
[2024-06-04 12:00] LABS: Anion Gap 8 (5-15); BUN 8 mg/dL (4-19); Calcium,Total 9.1 mg/dL (7.6-11.0); Carbon Dioxide 25.5 mmol/L (21.0-32.0); Chloride 100 mmol/L (98-108); Creatinine, Serum 0.98 mg/dL (0.70-1.20); EST Glomerular Filtration Rate 81 (>60); Glucose 87 mg/dL (70-99); Potassium 4.6 mmol/L (3.3-5.1); Sodium Level 134 mmol/L (133-145)
== END | disposition home or self-care (01) ==
LOC: LAB 11:09
PROVIDERS: PCP Family Medicine; Referring Provider Nurse Practitioner Adult Health; Visit Provider Nurse Practitioner Adult Health
DX: I35.0 Nonrheumatic aortic (valve) stenosis (principal)
CPT/HCPCS: 36415; 80048; 85027

== ENCOUNTER 2024-06-21 10:15 | Outpatient (RCR) | payer MEDICARE, SELFPAY ==
[2024-06-01 11:03] VITALS: BMI 24.4
== END 2024-06-21 23:59 ==
LOC: CR 10:15
PROVIDERS: PCP Family Medicine; Referring Provider Internal Medicine Cardiovascular Disease; Visit Provider Internal Medicine Cardiovascular Disease
DX: Z95.2 Presence of prosthetic heart valve (principal)
CPT/HCPCS: 93798

== ENCOUNTER → 2024-07-08 | Outpatient (CLI) | payer MEDICARE, SELFPAY ==
[2024-07-01 07:20] VITALS: BMI 24.8
== END | disposition home or self-care (01) ==
LOC: MTLAB 11:31
PROVIDERS: PCP Family Medicine; Referring Provider Internal Medicine Rheumatology; Visit Provider Internal Medicine Rheumatology
DX: M35.00 Sjogren syndrome, unspecified (principal)
CPT/HCPCS: 36415; 86235

== ENCOUNTER 2024-07-09 10:15 | Outpatient (RCR) | payer MEDICARE, SELFPAY ==
[2024-06-01 11:03] VITALS: BMI 24.4
--- NOTE | 2024-07-01 07:09 | PCM.CR.ITP ---
Exercise - Initial Assessment Visit Session #:: 13 Physician Prescribed Exercise Modalities: Treadmill, SciFit Stepper and SciFit Lateral Automatic Steel Tie Adjuster Nutrition - Initial Assessment Weight Mgt (Other Care) Height: 5 ft 11 in Weight:: 178 lb BMI: 24.8 Core - Initial Assessment Tobacco Use Years Smokin (Pt stopped in June of 1999) Psychosocial - Initial Assess Target Goals Target Goals Referral to Behavioral Health PS - Interventions: Yes: Attend Stress Management Classes Patient Health Questionnaire PHQ-9 Screening 30-Day Re-eval Assessment: 1. Little interest or pleasure in doing things: Not at all 2. Feeling down, depressed, or hopeless: Not at all 3. Trouble falling or staying asleep, or sleeping too much: Not at all 4. Feeling tired or having little energy: Several days 5. Poor appetite or overeating: Not at all 6. Feeling bad about yourself -- or that you are a failure or have let yourself or your family down: Not at all 7. Trouble concentrating on things, such as reading the newspaper or watching television: Not at all 8. Moving or speaking so slowly that other people could have noticed. Or the opposite - being so fidgety or restless that you have been moving around a lot more than usual: Not at all 9. Thoughts that you would be better off , or of hurting yourself in some way: Not at all How difficult have these problems made it for you to do your work, take care of things at home, or get along with other people?: Not difficult at all Total Score: 1 Self-Efficacy 6-Item Scale 30-Day Re-eval Assessment: We would like to know how confident you are in doing certain activities. Please select your confidence level for: Fatigue Select Number: 10 Physical Discomfort or Pain Select Number: 10 Emotional Distress Select Number: 7 Other Symptoms or Health Problems Select Number: 10 Different Tasks and Activities Select Number: 10 Medication Select Number: 6 Total Score:: 8 Nutrition Survey Nutrition Survey Instructions Scoring Instructions Exercise - 30-day Assessment Visit Date of Eval: 07/01/24 Session #:: 13 Physician Prescribed Exercise Modalities: Treadmill, SciFit Stepper and SciFit Lateral Automatic Steel Tie Adjuster Frequency: 3x/week for 12 weeks [36 sessions] Intensity: 60-80% of age predicted maximum heart rate reserve Duration: 30 - 45 minutes Current METSs:: 3.5 Target Heart Rate:: 87-110 Current RPE:: 12-13 Maximum Excercise HR:: 83 Resting Blood Pressure: 116/66 Maximum Exercise Blood Pressure: 136/70 EKG Type: NSR with rare PAC Outcomes & Goals Goals:: Verbalizes understanding of THR, RPE & goal METS by session 6, Documents in home exercise log/reports 30 min aerobic 5 day/wk by DC, Demonstrates accurate pulse taking by DC and Other additional outcome/goals: see below Intervention & Plan Exercise Program Goals: Instruct on personal THR & RPE, Instruct on MET level & personal MET goal, Show patient to take own pulse /validate performance until accurate, Instruct on home exercise and Other additional plan/int Physical Activity Home Exercise Physical Activity - Home Exercise: Safe Exercise, Warm-up, Self-monitoring, Cool-Down, Home Exercise > 30 min Daily and Sitting Time <3 hours/daily Outcomes & Goals Outcomes/Goals: Demonstrates correct Warm-up/exercise Cool-Down (S3) if = 2.5 METs, Verbalizes symptoms of exercise intolerance by Session 3 (S3), Demonstrate safe equipment use (S3) & follows exercise prescrition (6) and Other: See below Intervention & Plan Plan/Intervention: Instruct warm-up & cool-down if exercising at > 2 METs, Instruct on symptoms of exercise intolerance & actions to take, Instruct & monitor on saf, Assess intial functional capacity & safety risk and Other See below 30-day Reassessments 30 day Reassessments:: Progressing Reassessment Notes & Comments:: RPE explained to pt. Pt demonstrates understanding in his daily sessions. Exercise - 60-day Assessment Physician Prescribed Exercise Modalities: Treadmill, SciFit Stepper and SciFit Lateral [place] Exercise - 90-day Assessment Physician Prescribed Exercise Modalities: Treadmill, SciFit Stepper and SciFit Lateral [place] Exercise - Final/Discharge Physician Prescribed Exercise Modalities: Treadmill, SciFit Stepper and SciFit Lateral [place] Nutrition - 30-Day Assessment Program Goals Nutrition Program Goals Patient has diagnosis of Hyperlipidemia (ICD E78)?: Yes Visit Date of Eval: 07/01/24 Session #:: 13 Cholesterol/Lipids (Other Core Measures) Determine presence & major risk factors that modify LDL goal: Cigarette smoking, Hypertension or hypertensive medication, Low HDL cholesterol <40 mg/dL*, Family history of premature CHD in Male < 55 years: female <65 yearsFa and Age men > 45 years; women >/= 55 years Outcomes/Goals: Pt IDs own risk factors & lifestyle modifications by Session 10, Verbalizes symptoms of angina & response by session 3., Pt independently manages and Other Additional Outcomes/Goals: Intervention/Plan: Advocate for lipid panel cholesterol medication if applicable, Instruct on personal lipid levels & lipid goals/NCEP guidelines, Instruct on cholesterol and Other additional plan/int Diabetes (Other Core Measures) Diabetes Type: Not Applicable Weight Mgt (Other Care) Height: 5 ft 11 in Weight:: 178 lb BMI: 24.8 Diagnosis Overweight/Obesity BMI> 30% ICD-10 E66: No Diagnosis High BMI/Morbid Obesity BMI> 35% ICD-10 Z68: No Outcomes/Goals: Pt sets, maintains & shows weight loss goal & trend during rehab and Other additional outcomes/goals Intervention/Plan: Instruct on ideal BMI & set weight loss goal w/patient, Assist pt to ID & incorporate diet changes for weight loss by S9, Refer to Structured Weight Loss program as appropriate, Encourage goal of using 250-300dcal per session for weight loss and Other additional plan/interventions Healthy Eating Habits Will attend diet classes:: Yes Outcomes/Goals:: Consume diet rich in vegs,fruits,whole grain/high fiber,fish,lean meat, Limit sat/trans fats,cholesterol & added salts & sugars and Other additional outcome/goals: Intervention/Plan:: Assess current eating habits and Other Additional plan/interventions 30-day Reassessments:: Progressing Reassessment Notes & Comments:: Pt will attend nutrition class with our gin operator. Heart healthy low sodium diet encouraged. Education Gave educational materials for:: Signs & symptoms of hypoglycemia, Signs & symptoms of hyperglycemia, Relate diabetes to coronary artery disease and Healthy eating Nutrition - 60-Day Assessment Weight Mgt (Other Care) Height: 5 ft 11 in Weight:: 178 lb BMI: 24.8 Core - 30-Day Assessment Visit Date of Eval: 07/01/24 Session #:: 13 Medication Compliance Preventative Medication(s):: Aspirin, Clopidogrel/P2Y12 inhibit, Statin/lipid and Beta christina H/O mental health issues: depression, anxiety, or addiction?: No Doesn?t believe in the benefits of treatment?: No Believes medications are unnecessary or harmful?: No Has a concern about medication side effects?: No Expresses concern over the cost of medications?: No Outcomes/Goals: Verbalizes medications,desired effect & common side effects @ DC, Pt self-reports following medication regimen, Keeps card in wallet w/medications listed by DC and Other additional outcome/goals: Interventions/plans: Instruct on medication effects & side effects, Review medication list w/patient every two weeks, Instruct importance of taking meds as ordered & assist problem solving and Other additional Tobacco Use Tobacco Use: Non-smoker Years Smokin (Pt stopped in June of 1999) Do you use smokeless tobacco?: No 30-day Reassessments:: Met Hypertension Hypertension Diagnosis:: Hypertension ICD-10 I10 Resting Blood Pressure:: 116/66 [place] [employer] Hypertension Guidelines Peak Exercise Blood Pressure:: 136/70 Outcomes/Goals: Able to verbalize/achieve optimal blood pressure <130/80, Incorporates diet changes & exercise for blood pressure control by DC and Other additional outcomes/goals Interventions/plan: Instruct on optimal blood pressure, hypertension & medications, Instruct on effects of sodium, alcohol, stress, exercise &hypertension and Other additional plan/interventions 30 day Reassessments:: Progressing Reassessment Notes & Comments:: Pt's BP's are within AHA normal limits on some days. Will continue to monitor and report to physician if necessary. Low sodium diet encouraged. Tobacco Cessation Referral Smoking Cessation Referral:: No Individual Education/Counseling:: No Education Schedule Given:: Yes Psychosocial - 30-Day Assess VIsit Date of Eval: 07/01/24 Session #:: 13 History of previous Mental disease:: No Target Goals Target Goals Psychosocial Test Tool Used:: [employer] Power QOL Cardiac and PHQ-9 Questionnaire phq-9 Severity See PHQ-9 Score: 1 Referral to Behavioral Health PS - Interventions: Yes: Attend Stress Management Classes Outcomes/Goals: See list Psychosocial Outcomes/Goals:: ID's personal stressors & 2 strategies to manage stress by discharge and Other Additional outcome/goals: Intervention/Plan: See List Interventions/Plan:: Assess stressors,coping strategies & signs of derpression on admission, Instruct/assist pt to develop coping & personal stress Mgt strategies, Refer to Behavioral Health if appropriate, Refer to Physician if appropriate, Instruct patient to recognize signs & symptoms of depression, Instruct patient to recog and Other additional plan/intervention 30-day Reassessments: 30 day Reassessments:: Met Reassessment Notes & Comments:: Pt denies any psychosocial issues at this time. Will continue to monitor. Psychosocial - 60-Day Assess Target Goals Target Goals Referral to Behavioral Health PS - Interventions: Yes: Attend Stress Management Classes Outcomes/Goals: See list Psychosocial Outcomes/Goals:: ID's personal stressors & 2 strategies to manage stress by discharge and Other Additional outcome/goals: Psychosocial - 90-Day Assess Target Goals Target Goals Referral to Behavioral Health PS - Interventions: Yes: Attend Stress Management Classes Psychosocial - Final Assessmen Target Goals Target Goals Referral to Behavioral Health PS - Interventions: Yes: Attend Stress Management Classes Nutrition - 90-Day Assessment Weight Mgt (Other Care) Height: 5 ft 11 in Weight:: 178 lb BMI: 24.8 Nutrition - Final Assessment Weight Mgt (Other Care) Height: 5 ft 11 in Weight:: 178 lb BMI: 24.8
[2024-07-01 07:20] VITALS: BP 116/66; BMI 24.8
== END 2024-07-21 23:59 ==
LOC: CR 10:15
PROVIDERS: PCP Family Medicine; Referring Provider Internal Medicine Cardiovascular Disease; Visit Provider Internal Medicine Cardiovascular Disease
DX: Z95.2 Presence of prosthetic heart valve (principal)
CPT/HCPCS: 93798

== ENCOUNTER 2024-07-23 08:01 | Outpatient (RCR) | payer MEDICARE, SELFPAY ==
[2024-07-01 07:20] VITALS: BMI 24.8
[2024-07-22 00:20] VITALS: BP 116/66
--- NOTE | 2024-07-29 07:32 | PCM.CR.ITP ---
Exercise - Initial Assessment Physician Prescribed Exercise Modalities: Treadmill, SciFit Stepper and SciFit Lateral [place] Nutrition - Initial Assessment Weight Mgt (Other Care) Height: 5 ft 11 in Weight:: 179 lb BMI: 25.0 Core - Initial Assessment Hypertension Resting Blood Pressure:: 126/64 [place] [employer] Hypertension Guidelines Psychosocial - Initial Assess Target Goals Target Goals Referral to Behavioral Health PS - Interventions: Yes: Attend Stress Management Classes Patient Health Questionnaire PHQ-9 Screening 60-Day Re-eval Assessment: 1. Little interest or pleasure in doing things: Not at all 2. Feeling down, depressed, or hopeless: Not at all 3. Trouble falling or staying asleep, or sleeping too much: Not at all 4. Feeling tired or having little energy: Several days 5. Poor appetite or overeating: Not at all 6. Feeling bad about yourself -- or that you are a failure or have let yourself or your family down: Not at all 7. Trouble concentrating on things, such as reading the newspaper or watching television: Not at all 9. Thoughts that you would be better off , or of hurting yourself in some way: Not at all How difficult have these problems made it for you to do your work, take care of things at home, or get along with other people?: Not difficult at all Total Score: 1 Self-Efficacy 6-Item Scale 60-Day Re-eval Assessment: We would like to know how confident you are in doing certain activities. Please select your confidence level for: Fatigue Select Number: 10 Physical Discomfort or Pain Select Number: 10 Emotional Distress Select Number: 10 Other Symptoms or Health Problems Select Number: 7 Different Tasks and Activities Select Number: 10 Medication Select Number: 6 Total Score:: 8 Nutrition Survey Nutrition Survey Instructions Scoring Instructions Exercise - 30-day Assessment Physician Prescribed Exercise Modalities: Treadmill, SciFit Stepper and SciFit Lateral [place] Exercise - 60-day Assessment Visit Date of Eval: 07/29/24 Session #:: 16 (Pt has been on medical hold since 07/10/24 due to back/leg pain. ) Physician Prescribed Exercise Modalities: Treadmill, SciFit Stepper and SciFit Lateral [place] Frequency: 3x/week for 12 weeks [36 sessions] Intensity: 60-80% of age predicted maximum heart rate reserve Duration: 30 - 45 minutes Current METSs:: 3.4 Target Heart Rate:: 87-110 Current RPE:: 12 Maximum Excercise HR:: 73 Resting Blood Pressure: 142/68 Maximum Exercise Blood Pressure: 136/80 EKG Type: SB to NSR with rare PAC Outcomes & Goals Goals:: Verbalizes understanding of THR, RPE & goal METS by session 6, Documents in home exercise log/reports 30 min aerobic 5 day/wk by DC, Demonstrates accurate pulse taking by DC and Other additional outcome/goals: see below Intervention & Plan Exercise Program Goals: Instruct on personal THR & RPE, Instruct on MET level & personal MET goal, Show patient to take own pulse /validate performance until accurate, Instruct on home exercise and Other additional plan/int Physical Activity Home Exercise Physical Activity - Home Exercise: Safe Exercise, Warm-up, Self-monitoring, Cool-Down, Home Exercise > 30 min Daily and Sitting Time <3 hours/daily Outcomes & Goals Outcomes/Goals: Demonstrates correct Warm-up/exercise Cool-Down (S3) if = 2.5 METs, Verbalizes symptoms of exercise intolerance by Session 3 (S3), Demonstrate safe equipment use (S3) & follows exercise prescrition (6) and Other: See below Intervention & Plan Plan/Intervention: Instruct warm-up & cool-down if exercising at > 2 METs, Instruct on symptoms of exercise intolerance & actions to take, Instruct & monitor on saf, Assess intial functional capacity & safety risk and Other See below 30-day Reassessments 30 day Reassessments:: Progressing Reassessment Notes & Comments:: Proper warm up and cool down explained to pt. Pt is able to return demonstration in his daily sessions. Exercise - 90-day Assessment Physician Prescribed Exercise Modalities: Treadmill, SciFit Stepper and SciFit Lateral Crystalizer Operator Exercise - Final/Discharge Physician Prescribed Exercise Modalities: Treadmill, SciFit Stepper and SciFit Lateral Crystalizer Operator Nutrition - 30-Day Assessment Weight Mgt (Other Care) Height: 5 ft 11 in Weight:: 179 lb BMI: 25.0 Nutrition - 60-Day Assessment Program Goals Nutrition Program Goals Patient has diagnosis of Hyperlipidemia (ICD E78)?: Yes Visit Date of Eval: 07/29/24 Session #:: 16 Cholesterol/Lipids (Other Core Measures) Determine presence & major risk factors that modify LDL goal: Cigarette smoking, Hypertension or hypertensive medication, Low HDL cholesterol <40 mg/dL*, Family history of premature CHD in Male < 55 years: female <65 yearsFa and Age men > 45 years; women >/= 55 years Outcomes/Goals: Pt IDs own risk factors & lifestyle modifications by Session 10, Verbalizes symptoms of angina & response by session 3., Pt independently manages and Other Additional Outcomes/Goals: Intervention/Plan: Advocate for lipid panel cholesterol medication if applicable, Instruct on personal lipid levels & lipid goals/NCEP guidelines, Instruct on cholesterol and Other additional plan/int Diabetes (Other Core Measures) Diabetes Type: Not Applicable Weight Mgt (Other Care) Height: 5 ft 11 in Weight:: 179 lb BMI: 25.0 Diagnosis Overweight/Obesity BMI> 30% ICD-10 E66: No Diagnosis High BMI/Morbid Obesity BMI> 35% ICD-10 Z68: No Outcomes/Goals: Pt sets, maintains & shows weight loss goal & trend during rehab and Other additional outcomes/goals Intervention/Plan: Instruct on ideal BMI & set weight loss goal w/patient, Assist pt to ID & incorporate diet changes for weight loss by S9, Refer to Structured Weight Loss program as appropriate, Encourage goal of using 250-300dcal per session for weight loss and Other additional plan/interventions Healthy Eating Habits Will attend diet classes:: Yes Outcomes/Goals:: Consume diet rich in vegs,fruits,whole grain/high fiber,fish,lean meat, Limit sat/trans fats,cholesterol & added salts & sugars and Other additional outcome/goals: Intervention/Plan:: Assess current eating habits and Other Additional plan/interventions 30-day Reassessments:: Progressing Reassessment Notes & Comments:: Pt will attend nutrition class when he returns from his med hold. Education Gave educational materials for:: Signs & symptoms of hypoglycemia, Signs & symptoms of hyperglycemia, Relate diabetes to coronary artery disease and Healthy eating Core - Final Assessment Hypertension Resting Blood Pressure:: 126/64 [place] [employer] Hypertension Guidelines Core - 60-Day Assessment Visit Date of Eval: 07/29/24 Session #:: 16 Medication Compliance Preventative Medication(s):: Aspirin, Clopidogrel/P2Y12 inhibit, Statin/lipid and Beta christina H/O mental health issues: depression, anxiety, or addiction?: No Doesn?t believe in the benefits of treatment?: No Believes medications are unnecessary or harmful?: No Has a concern about medication side effects?: No Expresses concern over the cost of medications?: No Outcomes/Goals: Verbalizes medications,desired effect & common side effects @ DC, Pt self-reports following medication regimen, Keeps card in wallet w/medications listed by DC and Other additional outcome/goals: Interventions/plans: Instruct on medication effects & side effects, Review medication list w/patient every two weeks, Instruct importance of taking meds as ordered & assist problem solving and Other additional Tobacco Use Tobacco Use: Non-smoker How long ago did you quit using tobacco products?: Greater than or equal to 6 months ago (Pt smoked for 20 years and stopped in June of 1999) 30-day Reassessments:: Met Reassessment Notes & Comments:: Pt smoked for 20 years and stopped in June of 1999 Hypertension Hypertension Diagnosis:: Hypertension ICD-10 I10 Resting Blood Pressure:: 142/68 Resting Blood Pressure:: 126/64 [place] [employer] Hypertension Guidelines Peak Exercise Blood Pressure:: 136/80 Outcomes/Goals: Able to verbalize/achieve optimal blood pressure <130/80, Incorporates diet changes & exercise for blood pressure control by DC and Other additional outcomes/goals Interventions/plan: Instruct on optimal blood pressure, hypertension & medications, Instruct on effects of sodium, alcohol, stress, exercise &hypertension and Other additional plan/interventions 30 day Reassessments:: Progressing Reassessment Notes & Comments:: Pt's BP's are within AHA normal limits on some days. Will encourage a low sodium diet. Will continue to monitor and send report to pt's physician if necessary. Tobacco Cessation Referral Smoking Cessation Referral:: No Individual Education/Counseling:: No Education Schedule Given:: Yes Psychosocial - 30-Day Assess Target Goals Target Goals Referral to Behavioral Health PS - Interventions: Yes: Attend Stress Management Classes Outcomes/Goals: See list Psychosocial Outcomes/Goals:: ID's personal stressors & 2 strategies to manage stress by discharge and Other Additional outcome/goals: Psychosocial - 60-Day Assess VIsit Date of Eval: 07/29/24 Session #:: 16 History of previous Mental disease:: No Target Goals Target Goals Psychosocial Test Tool Used:: [employer] Power QOL Cardiac and PHQ-9 Questionnaire phq-9 Severity See PHQ-9 Score: 1 Referral to Behavioral Health PS - Interventions: Yes: Attend Stress Management Classes Outcomes/Goals: See list Psychosocial Outcomes/Goals:: ID's personal stressors & 2 strategies to manage stress by discharge and Other Additional outcome/goals: Intervention/Plan: See List Interventions/Plan:: Assess stressors,coping strategies & signs of derpression on admission, Instruct/assist pt to develop coping & personal stress Mgt strategies, Refer to Behavioral Health if appropriate, Refer to Physician if appropriate, Instruct patient to recognize signs & symptoms of depression, Instruct patient to recog and Other additional plan/intervention 30-day Reassessments: 30 day Reassessments:: Met Reassessment Notes & Comments:: Pt denies any psychosocial issues at this time. Psychosocial - 90-Day Assess Target Goals Target Goals Referral to Behavioral Health PS - Interventions: Yes: Attend Stress Management Classes Psychosocial - Final Assessmen Target Goals Target Goals Referral to Behavioral Health PS - Interventions: Yes: Attend Stress Management Classes Nutrition - 90-Day Assessment Weight Mgt (Other Care) Height: 5 ft 11 in Weight:: 179 lb BMI: 25.0 Nutrition - Final Assessment Weight Mgt (Other Care) Height: 5 ft 11 in Weight:: 179 lb BMI: 25.0
[2024-07-29 07:38] VITALS: BP 142/68
[2024-07-29 07:48] VITALS: BP 126/64; BP 142/68; BMI 25.0
== END 2024-08-21 23:59 ==
LOC: CR 08:01
PROVIDERS: PCP Family Medicine; Referring Provider Internal Medicine Cardiovascular Disease; Visit Provider Internal Medicine Cardiovascular Disease
DX: Z95.2 Presence of prosthetic heart valve (principal)
CPT/HCPCS: 93798

== ENCOUNTER → 2024-08-13 | Outpatient (CLI) | payer MEDICARE, SELFPAY ==
[2024-07-29 07:48] VITALS: BMI 25.0
[2024-08-13 11:08] LABS: AST(SGOT) 24 U/L (<=37); Alanine Aminotransfer ALT/SGPT 17 U/L (<=46); Albumin, Serum 3.4 g/dL (3.4-4.8); Alkaline Phosphatase 80 U/L (40-129); Bilirubin, Direct 0.19 mg/dL (0.00-0.30); Globulin 3.1 g/dL (2.2-4.2); Protein, Total 6.5 g/dL (5.9-8.4); Total Bilirubin 0.39 mg/dL (0.00-1.30)
== END | disposition home or self-care (01) ==
LOC: MTLAB 07:50
PROVIDERS: PCP Family Medicine; Referring Provider Nurse Practitioner Family; Visit Provider Nurse Practitioner Family
DX: J84.10 Pulmonary fibrosis, unspecified (principal); R06.02 Shortness of breath
CPT/HCPCS: 36415; 80076

== ENCOUNTER → 2024-09-13 | Outpatient (CLI) | payer MEDICARE, SELFPAY ==
[2024-09-13 18:26] LABS: AST(SGOT) 24 U/L (<=37); Alanine Aminotransfer ALT/SGPT 18 U/L (<=46); Albumin, Serum 3.9 g/dL (3.4-4.8); Alkaline Phosphatase 86 U/L (40-129); Bilirubin, Direct 0.22 mg/dL (0.00-0.30); Globulin 3.1 g/dL (2.2-4.2); Protein, Total 6.9 g/dL (5.9-8.4); Total Bilirubin 0.46 mg/dL (0.00-1.30)
== END | disposition home or self-care (01) ==
LOC: MTLAB 09:52
PROVIDERS: PCP Family Medicine; Referring Provider Nurse Practitioner Family; Visit Provider Nurse Practitioner Family
DX: J84.10 Pulmonary fibrosis, unspecified (principal); R06.02 Shortness of breath
CPT/HCPCS: 36415; 80076

== ENCOUNTER → 2024-09-16 | Outpatient (CLI) | payer MEDICARE, SELFPAY | END | disposition home or self-care (01) | LOC: PSN 08:11 | PROVIDERS: PCP Family Medicine; Referring Provider Nurse Practitioner Family; Visit Provider Nurse Practitioner Family | DX: J84.10 Pulmonary fibrosis, unspecified (principal) | CPT/HCPCS: 94060; 94726; 94729 ==

== ENCOUNTER 2024-09-18 12:46 | Emergency (ER) | payer MEDICARE, SELFPAY ==
[2024-09-18] VITALS (9 sets, daily range): BP systolic 154–166; BP diastolic 78–127; PULSE 50–63; RESP 11–20; TEMP 36; O2SAT 95–100; BMI 23.8
--- NOTE | 2024-09-18 12:49 | EKG12_ITS ---
Test Reason : CP Blood Pressure : */* mmHG Vent. Rate : 63 BPM Atrial Rate : 63 BPM P-R Int : 186 ms QRS Dur : 84 ms QT Int : 408 ms P-R-T Axes : 42 45 60 degrees QTcB Int : 417 ms Normal sinus rhythm Normal ECG Confirmed by KARLI MOROCHO, SIMONA ([id number]), art editor PATRICIA HERRERA ([id number]) on 09/21/2024 6:40:53 AM Referred By: Bj Gaspar Confirmed By: SIMONA CALVILLO MD
--- NOTE | 2024-09-18 13:06 | RAD_ITS ---
PROCEDURE: CHEST 1 VIEW (PORTABLE) 09/18/2024 REASON FOR EXAM: CHEST PAIN TECHNIQUE: Frontal view of the chest. COMPARISON: CT from 03/25/24 FINDINGS: Mild pulmonary vascular congestion. Underlying chronic lung disease noted. Bibasilar subsegmental atelectasis. no focal consolidation. No pleural effusion or pneumothorax. TAVR noted. cardiac silhouette is within normal limits. Calcified aortic arch. RAD/Chest 1 View (Portable) IMPRESSION: Mild pulmonary vascular congestion. Underlying chronic lung disease noted. Bib asilar subsegmental atelectasis. no focal consolidation. Reading Location: [id number]
[2024-09-18 13:08] LABS: Absolute Lymphocyte Count 2.33 X10^3/uL (0.83-4.51); Absolute Neutrophil Count 6.8 X10^3/uL (2.0-7.7); Basophil# 0.07 X10^3/uL; Basophil% 0.7 % (0-1); Eosinophil# 0.28 X10^3/uL; Eosinophils% 2.6 % (0-5); Hematocrit 44.2 % (40-54); Hemoglobin 14.8 g/dL (13.0-16.5); Lymphocyte # 2.33 X10^3/ul (0.83-4.51); Lymphocyte % 21.8 % (19-41); Mean Corp Hgb Conc 33.5 g/dL (32-36); Mean Corpuscular Hgb 29.9 pg (27.0-32.0); Mean Corpuscular Volume 89.3 fL (80-94); Mean Platelet Vol. 9.5 fl (6.2-12.0); Monocyte# 1.19 X10^3/uL; Monocyte% 11.1 % (0-10); NRBC Flagged by Analyzer 0 % (0-5); Neutrophil # 6.77 X10^3/uL (2.7-7.7); Neutrophil % 63.3 % (47-70); Platelet Count 141 K/mm3 (150-450); RBC Distribution Width CV 14.9 % (11.6-14.6); RBC Distribution Width SD 48.7 fl (35.1-43.9); Red Blood Count 4.95 M/mm3 (4.6-6.2); White Blood Count 10.7 K/mm3 (4.4-11.0)
--- OUTSIDE RECORDS SUMMARY | 2024-09-18 13:33 | XMS RPT_ITS | CCD ---
Author Organization [facility] CliniSyvt Care Team Providers Care Glass Blower Helper Name Role Phone TuckerIsacambreen Zhang Unavailable Unavailable Yuliana Lema Unavailable Unavailable Roof STONE DRILLER, Monroe Martinez Unavailable Yuliana Lema Unavailable Unavailable Dr. Beulah Catherine Primary Care Provider Dr. Beulah Catherine Referring Provider Dr. Bernard Witt Attending Provider Dr. Grey Harry Attending Provider Dr. Jm Shafer Attending Provider Dr. Bernard Witt Other Provider [phone] Dr. Beualh Catherine Primary Care Provider Dr. Beulah Catherine Referring Provider Dr. Grey Harry Attending Provider Dr. Beulah Catherine Primary Care Provider Dr. Beulah Catherine Referring Provider Dr. Grey Harry Attending Provider Dr. Beulah Catherine Primary Care Provider Dr. Beulah Catherine Referring Provider RODNEY Justin Attending Provider Dr. May Kraft Attending Provider [phone] RODNEY Justin Referring Provider Dr. Beulah Catherine Primary Care Provider Dr. Beulah Catherine Referring Provider EvansRODNEY Whitman Attending Provider Dr. May Kraft Attending Provider EvansRODNEY Montgomery Referring Provider EvansRODNYE Montgomery Other Provider Dr. Amarjit Irving Attending Provider Dr. Andrew Green Attending Provider Dr. Beulah Catherine Primary Care Provider EvansRODNEY Montgomery Referring Provider Dr. May Kraft Attending Provider Dr. Beulah Catherine Referring Provider Dr. Bernard Bullock Attending Provider Dr. Mauro Powers Attending Provider 1([facility])[phone] Amarjit Irving Referring Provider 1([facility])[phone] Mauro Powers Other Provider Dr. Beulah Catherine Primary Care Provider Dr. Mauro Powers Referring Provider Dr. Amarjit Irving Admit Provider Dr. Amarjit Irving Other Provider Dr. Grecia Christian Other Provider Dr. Eleazar Milligan Other Provider 1([facility])[phone] Dr. Silvana Martinez Other Provider Dr. Silvana Nino Other Provider Dr. Dolores Bobo Other Provider Unavailable Dr. Marion Man Other Provider Dr. Justine Rios Other Provider Dr. Kristofer Gonzalez Other Provider UnavailDr. Kristofer Navarro Other Provider Unavailable MD Aniket Peck Other Provider Dr. Bj Aviles Other Provider Dr. Robles Kebede Other Provider Dr. Frank Hinojosa Other Provider Dr. Mauro Culp Other Provider Dr. Clarence Lockwood Other Provider Dr. Celina Francis Other Provider Dr. Angelito Teran Other Provider 1([facility])[phone] Monie Babb Other Provider 1([facility])[phone] Roland Cruz Other Provider 1([facility])[phone] Dr. Mau Tejeda Other Provider 1([facility])[phone] Grey Tong Other Provider Dr. Raiza Evans Attending Provider Dr. Raiza Evans Other Provider Dr. Chinmay Fuentes Other Provider 1([facility])[phone] Sven STONE DRILLER, STONE DRILLER-C Meryl Other Provider Monroe Blanco Other Provider Unavailable Dr. Roland Cruz Attending Provider Unavailable Primary Care Provider Unavailabl e Malys, Beulah A Primary Care Provider GALO KOO Admitting Unavailable BITTENBENDERGALO Attending Unavailable BITTENBENDGALO SOOD Admitting Unavailable BITTENBENDER, PETER Attending Unavailable MALYS, BEULAH Primary Care Unavailable BANUELOS, MARIETTA Attending Unavailable BANUELOS, MARIETTA Referring Unavailable MALYS, BEULAH Primary Care Unavailable BANUELOS, MARIETTA Attending Unavailable BANUELOS, MARIETTA Referring Unavailable MALYS, BEULAH Primary Care Unavailable BANUELOS, MARIETTA Attending Unavailable MALYS, BEULAH Primary Care Unavailable JENSEN TREADWELL Attending Unavailable MALYS, BEULAH Primary Care Unavailable BANUELOS, MARIETTA Attending Unavailable MALYS, BEULAH Primary Care Unavailable BITTENBENDER, PETER Attending Unavailable BANUELOS, MARIETTA Attending Unavailable BANUELOS, MARIETTA Referring Unavailable MALYS, BEULAH Primary Care Unavailable BANUELOS, MARIETTA Attending Unavailable BANUELOS, MARIETTA Referring Unavailable MALYS, BEULAH Primary Care Unavailable Dr. Beulah Catherine DO Primary Care Provider 1([facility])[phone] Dr. Beulah Catherine DO Provider Ara MOROCHO, Dr. Wanger Attending Provider Mariposa STONE DRILLER-C, Honey Attending Provider Mariposa STONE DRILLER-C, Honey Referring Provider Mariposa STONE DRILLER-C, Honey Other Provider Dr. Manuel Dominguez DO Attending Provider Ara MOROCHO, Dr. Wagner Referring Provider Jackelyn MOROCHO, Dr. Lorenzo Attending Provider [phone] GALO KOO Attending Provider [phone] GALO KOO Referring Provider Ernesto STONE DRILLER-C, Marisel Patel Attending Provider LAKISHA STONE DRILLER-C, MARIETTA Attending Provider LAKISHA STONE DRILLER-C, MARIETTA Referring Provider Ernesto STONE DRILLER-C, Marisel Patel Other Provider Christiana Sloan RN Attending Provider Unavailable Almaz Justin Attending Provider [phone] Dr. Beulah Catherine DO Primary Care Provider Dr. Beulah Catherine DO Referring Provider Dr. Bernard Bullock MD Attending Provider Dr. Bernard Bullock MD Referring Provider LAKISHA STONE DRILLER-C, MARIETTA Attending Provider LAKISHA STONE DRILLER-C, MARIETTA Referring Provider Ernesto STONE DRILLER-C, Marisel Patel Attending Provider SYLVIE OSMAN MD Attending Provider SYLVIE OSMAN MD Referring Provider Aristides MOROCHO, Dr. Ocasio Attending Provider Peter MOROCHO, Dr. Morales Attending Provider [phone] Ernesto STONE DRILLER-C, Marisel Patel Referring Provider Bernard Bullock Attending Unavailable Malys, Beulah Primary Care Unavailable Bernard Bullock Referring Unavailable SYLVIE OSMAN Referring Unavailable Malys, Beulah Primary Care Unavailable SYLVIE OSMNA Attending Unavailable Mariposa STONE DRILLER, Honey Referring Unavailable Monge STONE DRILLER, Honey Attending Unavailable Malys, Beulah Primary Care Unavailable MAY, CLAIRE Referring Unavailable MAY, CLAIRE Attending Unavailable Malys, Beulah Primary Care Unavailable Malys, Beulah Primary Care Unavailable Malys, Beulah Attending Unavailable MARIETTA BANUELOS Referring Unavailable Malys, Beulah Primary Care Unavailable MARIETTA BANUELOS Attending Unavailable Marisel Burt Referring Unavailable Marisel Burt Attending Unavailable Malys, Beulah Primary Care Unavailable Malys, Beulah Primary Care Unavailable Andrew Green Attending Unavailable Bernard Bullock Attending Unavailable Bernard Bullock Referring Unavailable Malys, Beulah Primary Care Unavailable Mariposa STONE DRILLER, Honey Referring Unavailable Monge STONE DRILLER, Honey Attending Unavailable Malys, Beulah Primary Care Unavailable Malys, Beulah Primary Care Unavailable Malys, Beulah Referring Unavailable Malys, Beulah Attending Unavailable Bernard Bullock Attending Unavailable Malys, Beulah Primary Care Unavailable Bernard Bullock Referring Unavailable Malys, Beulah Primary Care Unavailable Bernard Bullock Attending Unavailable Bernard Bullock Referring Unavailable Malys, Beulah Primary Care Unavailable Bernard Bulolck Attending Unavailable Bernard Bullock Referring Unavailable Marisel Burt Referring Unavailable Marisel Burt Attending Unavailable Malys, Beulah Primary Care Unavailable Marisel Burt Referring Unavailable Malys, Beulah Primary Care Unavailable Marisel Burt Attending Unavailable Malys, Beulah Primary Care Unavailable Bernard Bullock Attending Unavailable Bernard Bullock Referring Unavailable Monge STONE DRILLER, Honey Attending Unavailable Malys, Beulah Primary Care Unavailable Malys, Beulah Referring Unavailable Amarjit Irving Attending Unavailable Malys, Beulah Primary Care Unavailable Malys, Beulah Referring Unavailable IrvingAmarjit Attending Unavailable Malys, Beulah Primary Care Unavailable Malys, Beulah Referring Unavailable MARIETTA BANUELOS Referring Unavailable MARIETTA BANUELOS Attending Unavailable Marisel Burt Consulting Unavailable Malys, Beulah Primary Care Unavailable Malys, Beulah Primary Care Unavailable Malys, Beulah Referring Unavailable Malys, Beulah Attending Unavailable Malys, Beulah Primary Care Unavailable Andrew Green Attending Unavailable Monge STONE DRILLER, Honey Referring Unavailable Monge STONE DRILLER, Honey Attending Unavailable Malys, Beulah Primary Care Unavailable Marisel Burt Attending Unavailable Malys, Beulah Primary Care Unavailable Malys, Beulah Referring Unavailable Amarjit Irving Attending Unavailable Malys, Beulah Primary Care Unavailable Malys, Beulah Referring Unavailable Malys, Beulah Primary Care Unavailable Andrew Green Attending Unavailable Malys, Beulah Primary Care Unavailable [place], Bj Attending Unavailable Malys, Beulah Referring Unavailable Manuel Dominguez Attending Unavailable Mariposa STONE DRILLER, Honey Referring Unavailable Malys, Beulah Primary Care Unavailable Mariposa STONE DRILLER, Honey Referring Unavailable Mariposa STONE DRILLER, Honey Consulting Unavailable BrownManuel Attending Unavailable Malys, Beulah Primary Care Unavailable Christiana Sloan Attending Unavailable Malys, Beulah Primary Care Unavailable Christiana Sloan Attending Unavailable Malys, Beulah Primary Care Unavailable Jackelyn, Bj Attending Unavailable Malys, Beulah Primary Care Unavailable Bernard Bullock Referring Unavailable Marisel Burt Attending Unavailable Malys, Beulah Primary Care Unavailable Malys, Beulah Referring Unavailable Malys, Beulah Primary Care Unavailable Bernard Bullock Attending Unavailable Malys, Beulah Referring Unavailable Marisel Burt Attending Unavailable Malys, Beulah Primary Care Unavailable Malys, Beulah Referring Unavailable Malys, Beulah Primary Care Unavailable Bernard Bullock Attending Unavailable Malys, Beulah Referring Unavailable Mariposa STONE DRILLER, Honey Attending Unavailable Malys, Beulah Primary Care Unavailable Malys, Beulah Referring Unavailable Almaz Justin Attending Unavail able Malys, Beulah Referring Unavailable Malys, Beulah Primary Care Unavailable Irving, Amarjit Referring Unavailable Malys, Beulah Primary Care Unavailable Irving, Amarjit Attending Unavailable Allergies Allergy Classification Reported Allergen(s) Allergy Type Date of Onset Reaction(s) Facility (20 sources) codeine; Translations: [codeine] drug allergy 07-12-2010 Shortness of breath [facility] Work Phone: Comment on above: AND RASH (20 sources) lisinopril; Translations: [lisinopril] drug allergy 04-03-2011 Shortness of breath [facility] Work Phone: Comment on above: AND RASH Medications Current Medications Medication Drug Class(es) Dates Sig (Normalized) Sig (Original) aspirin 81 mg delayed release oral tablet (20 sources) Nonsteroidal Anti-inflammatory Drug Start: 06-09-2024 take 1 tablet by mouth once daily Aspirin 81 mg tablet,delayed release (DR/EC) Active 81 mg PO daily June 09, 2024 12:00am Start: 04-27-2024 End: 04-27-2024 take 81 mg by mouth once daily 81 mg, Oral, Daily, Fir st dose on Fri04/27/24 at 0900, Do not crush, chew, or split. Start: 04-22-2011 End: 06-09-2024 take 1 tablet by mouth once daily Aspirin 325 MG tablet Discontinued 325 mg PO DAILY@0800 30 0 November 03, 2014 11:45am June 09, 2024 8:37am [facility] On Hold: Resume on 05/17/23. Start: 04-03-2011 take 1 tablet by eddi th once daily ASPIRIN 81 MG TABS One tablet by mouth daily ASPIRIN [id number] Grey Harry MD Start: 04-03-2011 take 1 tablet by eddi th once daily ASPIRIN 81 MG TABS One tablet by mouth daily ASPIRIN [id number] Grey Harry MD atorvastatin 40 mg oral tablet (20 sources) HMG-CoA Reductase Inhibitor Start: 04-23-2023 End: 04-27-2024 take 1 tablet by mouth once daily Atorvastatin 40 mg tablet Active 40 mg PO daily April 23, 2023 12:04pm HYPERLIPIDEMIA Start: 06-20-2017 End: 04-23-2023 Atorvastatin 40 mg tablet Discontinued 20 mg PO daily May 22, 2018 4:44pm April 23, 2023 12:08pm Start: 06-20-2017 End: 04-23-2023 take 20 mg by mouth once daily Atorvastatin Discontinu ed 20 MG PO daily May 22, 2018 3:44pm April 23, 2023 11:08am Start: 09-20-2013 take 1 tablet by eddi th once daily ATORVASTATIN CALCIUM 40 MG TABS One half tablet by mouth daily ATORVASTATIN CALCIUM [id number] Grey Harry MD Start: 07-09-2012 take 1 tablet by edid th once daily ATORVASTATIN CALCIUM 80 MG TABS One tablet by mouth daily ATORVASTATIN CALCIUM [id number] Grey Harry MD Start: 04-22-2011 End: 08-12-2011 take 1 tablet by mouth once daily LIPITOR 20 MG TABS One tablet by mouth daily ATORVASTATIN CALCIUM [id number] Grey Harry MD docusate sodium 50 mg / sennosides, [facility] care 8.6 mg oral tablet (9 sources) Start: 05-15-2023 Sennosides-Docusate Sodium (Stool Softener-Stimulant Laxat) 8.6-50 mg Tablet Active 2 {tbl} PO TWICE A DAY as needed for constipation 28 7 0 May 15, 2023 5:33pm gabapentin 400 mg oral capsule (20 sources) Anti-epilept ic Agent Start: 09-03-2024 take 4 capsules by mouth twice daily Gabapentin 400 mg capsule Active 1600 mg PO TWICE A DAY September 03, 2024 9:51am PAIN Start: 04-26-2024 End: 04-27-2024 take 800 mg by mouth twice daily 800 mg, Oral, 2 times daily, First dose on Fri04/26/24 at 2100 Start: 07-12-2013 take 2 tablets by mo uth twice daily NEURONTIN 400 MG CAPS two tablets by mouth two times a day GABAPENTIN [id number] Almaz Evans PA-C Start: 02-02-2013 End: 09-03-2024 take 2 capsules by mouth twice daily Gabapentin 400 mg capsule Discontinued 800 mg PO TWICE A DAY April 23, 2023 12:04pm September 03, 2024 9:52am PAIN Start: 02-02-2013 End: 04-23-2023 take 800 mg by mouth twice daily Gabapentin Active 800 MG PO TWICE A DAY April 23, 2023 11:04am Start: 08-14-2011 take 4 tablets by mo uth twice daily NEURONTIN 400 MG CAPS Four tablets by mouth two times a day GABAPENTIN [id number] Grey Harry MD Start: 08-14-2011 take 4 tablets by mo ut twice daily NEURONTIN 400 MG CAPS Four tablets by mouth two times a day GABAPENTIN [id number] Grey Harry MD Start: 04-03-2011 take 3 tablets by mo ut three times daily NEURONTIN 400 MG CAPS Three tablets by mouth three times a day GABAPENTIN [id number] Grey Harry MD Start: 04-03-2011 take 3 tablets by mo [facility] three times daily NEURONTIN 400 MG CAPS Three tablets by mouth three times a day GABAPENTIN [id number] Grey Harry MD Start: 03-29-2011 take 2 tablets by [facility] twice daily NEURONTIN 800 MG TABS Two tablets by mouth twice daily GABAPENTIN [id number] Justine Concepcion RN nintedanib 100 mg oral capsule (9 sources) Kinase Inhibitor Start: 09-08-2024 take 1 capsule by mouth every twelve hours Nintedanib (Ofev) 100 mg capsule Active 100 mg PO Q12H 60 September 08, 2024 12:00am Start: 04-13-2024 End: 09-08-2024 take 1 capsule by mouth every twelve hours Nintedanib (Ofev) 150 mg capsule Discontinued 150 mg PO Q12H 60 April 13, 2024 1:00am September 08, 2024 11:54am Patient to begin after aortic valve replacement. 60 actuat tiotropium 0.45796 mg/actuat inhalation spray (20 sources) Anticholinergic Start: 09-03-2024 take 1.25 ug by inhalation once daily Tiotropium Dunn (Spiriva Respimat) 1.25 mcg/actuation mist Active 2 NMA INHALATION daily September 03, 2024 12:00am Start: 04-27-2024 End: 04-27-2024 2 puff, Inhalation, Daily, F irst dose on Fri04/27/24 at 0900, Instruct to hold breath for 10 seconds after each inhalation. Before first use, prime inhaler by actuating until aerosal cloud is seen, then actuating 3 more times. Start: 12-08-2023 take 2 puff(s) by in halation once daily Spiriva Respimat 2.5 MCG/ACT inhaler Inhale 2 puffs daily. 12/08/2023 Active Start: 12-08-2023 End: 03-08-2024 take 2.5 ug by inhalation once daily Tiotropium Dunn (Spiriva Respimat) 2.5 mcg/actuation mist Discontinued 2 NMA INHALATION daily 03 29December 09, 2023 11:30am March 08, 2024 9:17am administer at approximately the same time(s) each day Start: 04-23-2023 End: 07-30-2023 take 1.25 ug by inhalation once daily Tiotropium Dunn (Spiriva Respimat) 1.25 mcg/actuation mist Discontinued 2 NMA INHALATION DAILY April 23, 2023 1:00am July 30, 2023 8:43am COPD Start: 01-26-2018 End: 04-23-2023 take 1 ug by inhalation once daily Tiotropium Dunn 18 mcg capsule, w/inhalation device Discontinued 1 ug INHALATION DAILY January 26, 2018 12:17pm April 23, 2023 12:05pm Start: 01-26-2018 End: 04-23-2023 take 1 ug by inhalation once daily Tiotropium Dunn Discontinued 1 MCG INHALATION DAILY January 26, 2018 11:17am April 23, 2023 11:05am Start: 02-02-2013 End: 01-26-2018 Tiotropium Dunn 1 PUFF in haler Discontinued 1 NMA INHALATION DAILY February 02, 2013 1:00am January 26, 2018 12:18pm Start: 02-02-2013 End: 01-26-2018 take 1 puff(s) by inhalation once daily Tiotropium Dunn Discontinued 1 PUFF INHALATION DAILY February 02, 2013 12:00am January 26, 2018 11:18am Start: 04-03-2011 SPIRIVA HANDIH ALER 18 MCG CAPS take as directed TIOTROPIUM BROMIDE MONOHYDRATE [id number] Grey Harry MD Start: 04-03-2011 SPIRIVA HANDIH ALER 18 MCG CAPS take as directed TIOTROPIUM BROMIDE MONOHYDRATE [id number] Grey Harry MD traMADol hydrochloride 50 mg oral tablet (20 sources) Opioid Agonist Start: 07-11-2023 End: 04-27-2024 take 1 tablet by mouth every six hours as needed Tramadol 50 mg tablet Active 50 mg PO EVERY 6 HOURS as needed July 11, 2023 12:00am Start: 02-16-2013 End: 05-15-2023 take 100 mg by mouth twice daily Tramadol Discontinued 100 MG PO TWICE A DAY April 23, 2023 11:06am May 15, 2023 4:31pm Start: 02-02-2013 End: 02-17-2013 take 1 tablet by mouth twice daily Tramadol (Ultram Er) 100 MG Tab.Er.24h Discontinued 100 mg PO TWICE A DAY February 02, 2013 1:00am February 17, 2013 1:01am Start: 04-03-2011 End: 05-15-2023 take 2 tablets by mouth twice daily Tramadol 50 mg tablet Discontinued 100 mg PO TWICE A DAY April 23, 2023 12:06pm May 15, 2023 5:31pm PAIN Start: 03-29-2011 take 1 tablet by eddi th twice daily TRAMADOL HCL 50 MG TABS One tablet by mouth twice daily TRAMADOL HCL [id number] Justine Concepcion RN Completed/Discontinued Medications Medication Drug Class(es) Dates Sig (Normalized) Sig (Original) acetaminophen 325 mg oral tablet (11 sources) Start: 04-26-2024 End: 04-27-2024 take 1 tablet by mouth every four hours as needed for pain 650 mg, Oral, Every 4 hours PRN, mild pain (1-3), Fever > 100.5 F (38 C), Starting on Fri04/26/24 at 0906, Recovery [facility] On Unit, Maximum dose of acetaminophen is 4000 mg from all sources in 24 hours. Start: 05-15-2023 End: 03-01-2024 take 2 tablets by mouth every eight hours Acetaminophen 500 mg Tablet Discontinued 1000 mg PO EVERY 8 HOURS 42 7 0 May 15, 2023 1:00am March 01, 2024 11:51am Start: 05-15-2023 take 1000 mg by mout h every eight hours Acetaminophen Active 1000 MG PO EVERY 8 HOURS 42 7 May 15, 2023 12:00am ALBUTEROL SULFATE (8 sources) beta2-Adrenergic Agonist Start: 03-29-2011 End: 04-10-2015 VENTOLIN HFA 108 (90 Base) MCG/ACT AERS As needed ALBUTEROL SULFATE [id number] Justine Concepcion RN Start: 03-29-2011 End: 04-10-2015 VENTOLIN HFA 108 (90 Base) M CG/ACT AERS As needed ALBUTEROL SULFATE [id number] Grey Harry MD Start: 03-29-2011 VENTOLIN HFA 1 08 (90 Base) MCG/ACT AERS As needed ALBUTEROL SULFATE [id number] Justine Concepcion RN amLODIPine 5 mg oral tablet (20 sources) Dihydropyridine Calcium Channel Yash Start: 05-29-2011 End: 04-27-2024 take 1 tablet by mouth once daily Amlodipine 5 mg tablet Discontinued 5 mg PO DAILY 90 3 July 23, 2022 3:22pm July 22, 2023 4:04pm HYPERTENSION Start: 04-22-2011 End: 05-22-2011 take 1 tablet by mouth once daily AMLODIPINE BESYLATE 5 MG TABS One tablet by mouth daily AMLODIPINE BESYLATE [id number] Justine Concepcion RN Start: 03-29-2011 take 1 tablet by eddi th once daily AMLODIPINE BESYLATE 10 MG TABS One tablet by mouth daily AMLODIPINE BESYLATE [id number] Justine Concepcion RN amoxicillin 875 mg / clavulanate 125 mg oral tablet (8 sources) Penicillin-class Antibacterial Start: 07-11-2023 End: 07-21-2023 Amoxicillin-Pot Clavulanate 875-125 mg tablet Discontinued 1 {tbl} PO Q12H 20 10 0 July 11, 2023 12:00am July 20, 2023 12:00am July 21, 2023 12:05am Acute sinusitis, unspecified atenolol 50 mg oral tablet (12 sources) beta-Adrenergic Yash Start: 03-29-2011 End: 04-22-2011 take 1 tablet by mouth once daily ATENOLOL 50 MG TABS One tablet by mouth daily ATENOLOL [id number] Deyanira Kendall RN Start: 07-12-2010 TENORMIN TABS ATENOLOL TABS [id number] Maximilian Goldman Start: 07-12-2010 TENORMIN TABS ATENOLOL TABS [id number] Maximilian Goldman azithromycin 500 mg oral tablet (12 sources) Macrolide Antimicrobial Start: 08-02-2023 End: 08-07-2023 take 1 tablet by mouth once daily Azithromycin 500 mg tablet Discontinued 500 mg PO DAILY 5 5 0 August 02, 2023 12:00am August 06, 2023 12:00am August 07, 2023 12:05am Start: 07-12-2010 End: 07-17-2010 ZITHROMAX Z-JUAN MANUEL 250 MG TABS 2 tabs by mouth today then 1 tab daily for 4 days AZITHROMYCIN [id number] Maximilian Goldman carvedilol 12.5 mg oral tablet (20 sources) alpha-Adrenergic Yash, beta-Adrenergic Yash Start: 04-26-2024 End: 04-27-2024 take 12.5 mg by mouth twice daily at mealtime 12.5 mg, Oral, 2 times daily with meals, First dose on Fri04/26/24 at 1700 Start: 02-02-2013 End: 11-10-2023 Carvedilol 25 mg tablet Disc ontinued 12.5 mg PO TWICE A DAY 90 November 01, 2022 4:09pm April 23, 2023 12:08pm Start: 02-02-2013 End: 04-23-2023 take 12.5 mg by mouth twice daily Carvedilol Discontinued 12.5 MG PO TWICE A DAY November 01, 2022 3:09pm April 23, 2023 11:08am Start: 04-22-2011 take 0.5 tablet by m mahendra twice daily COREG 25 MG TABS One-half tablet by mouth twice daily CARVEDILOL [id number] Skye Pena RN Start: 04-22-2011 take 1 tablet by eddi twice daily COREG 25 MG TABS One tablet by mouth twice daily CARVEDILOL [id number] Almaz Evans PA-C citalopram 40 mg oral tablet (8 sources) Serotonin Reuptake Inhibitor Start: 03-29-2011 End: 04-22-2011 take 1 tablet by mouth once daily CELEXA 40 MG TABS One tablet by mouth daily CITALOPRAM HYDROBROMIDE [id number] Justine Concepcion RN cloNIDine hydrochloride 0.1 mg oral tablet (12 sources) Central alpha-2 Adrenergic Agonist Start: 04-22-2011 End: 05-22-2011 take 1 tablet by mouth once daily CLONIDINE HCL 0.1 MG TABS One tablet by mouth daily CLONIDINE HCL [id number] Justine Concepcion RN Start: 04-03-2011 take 1 tablet by eddi twice daily CLONIDINE HCL 0.1 MG TABS One tablet by mouth twice daily CLONIDINE HCL [id number] Grey Harry MD clopidogrel 75 mg oral tablet (20 sources) [id number] Platelet Inhibitor Start: 04-22-2011 End: 04-27-2024 take 1 tablet by mouth once daily Clopidogrel 75 mg tablet Discontinued 75 mg PO DAILY 90 3 August 21, 2022 5:17pm September 04, 2023 8:43am BLOOD THINNER etodolac 200 mg oral capsule (20 sources) Nonsteroidal Anti-inflammatory Drug Start: 02-02-2013 End: 02-17-2013 take 1 capsule by mouth twice daily Etodolac 200 MG capsule Discontinued 400 mg PO TWICE A DAY February 02, 2013 1:00am February 17, 2013 5:13pm Start: 02-02-2013 End: 02-17-2013 take 400 mg by mouth twice daily Etodolac Discontinued 400 MG PO TWICE A DAY February 02, 2013 12:00am February 17, 2013 4:13pm Start: 01-11-2013 End: 07-12-2013 take 2 tablets by mouth twice daily as needed ETODOLAC 400 MG TABS Two tablets by mouth twice daily as needed ETODOLAC [id number] Almaz Evans PA-C Start: 12-16-2011 End: 07-16-2012 take 2 tablets by mouth twice daily ETODOLAC 400 MG TABS Two tablets by mouth twice daily ETODOLAC [id number] Almaz Evans PA-C Start: 03-29-2011 take 1 tablet by eddi twice daily ETODOLAC 400 MG TABS One tablet by mouth twice daily ETODOLAC [id number] Justine Concepcion RN Start: 07-12-2010 End: 03-29-2011 ETODOLAC TABS 201 04/24/05 ETODOLAC TABS [id number] Justine Concepcion RN Start: 07-12-2010 ETODOLAC TABS ETODOLAC TABS [id number] Maximilian Goldman ferrous sulfate 325 mg oral tablet (8 sources) Start: 05-30-2023 End: 07-11-2023 take 1 tablet by mouth once daily Ferrous Sulfate (Ferosul) 325 mg (65 mg iron) tablet Discontinued 325 mg PO DAILY May 30, 2023 1:00am July 11, 2023 10:44am Fluticasone-Umeclidin -Vilanter (16 sources) Start: 03-12-2024 End: 09-03-2024 Khpfaxcqgfs-Plaoellzf-Zcb anter (Trelegy Ellipta) 200-62.5-25 mcg blister with device Discontinued 1 NMA INHALATION DAILY 60 March 12, 2024 12:18pm September 03, 2024 9:50am Start: 03-12-2024 End: 09-03-2024 Sfzmamjsriy-Qpmidmcvp-Doumpy er (Trelegy Ellipta) 200-62.5-25 mcg blister with device Discontinued 1 NMA INHALATION DAILY March 12, 2024 12:18pm September 03, 2024 9:50am Start: 03-12-2024 Fluticasone-Um eclidin-Vilanter (Trelegy Ellipta) 200-62.5-25 mcg blister with device Active 1 NMA INHALATION DAILY March 12, 2024 12:18pm Start: 03-08-2024 End: 03-12-2024 Qfxsgfzlluc-Fhluojtad-Imcunw er (Trelegy Ellipta) 200-62.5-25 mcg blister with device Discontinued 1 NMA INHALATION DAILY 60 March 08, 2024 1:00am March 12, 2024 12:18pm Start: 03-08-2024 End: 03-12-2024 Vgjqnayztzo-Clmheelsg-Dljzgi er (Trelegy Ellipta) 200-62.5-25 mcg blister with device Discontinued 1 NMA INHALATION DAILY March 08, 2024 1:00am March 12, 2024 12:18pm homatropine methylbromide 0.3 mg/ml / HYDROcodone bitartrate 1 mg/ml oral solution (4 sources) Opioid Agonist, Cholinergic Muscarinic Agonist Start: 07-12-2010 End: 07-22-2010 HYDROCODONE-HOMATROPINE 5-1.5 MG/5ML SYRP 5ml (1 teaspoon) by mouth every 6- 8 hours as needed HYDROCODONE-HOMATROPINE [id number] Maximilian Goldman hydroCHLOROthiazide 25 mg oral tablet (20 sources) Thiazide Diuretic Start: 04-03-2011 End: 08-17-2020 take 1 tablet by mouth once daily Hydrochlorothiazide 25 mg tablet Discontinued 25 mg PO DAILY 90 April 27, 2019 7:32am August 17, 2020 3:18pm iopamidol (Isovue-370) 76 % injection 100 mL (2 sources) Start: 04-20-2024 End: 04-20-2024 take 100 mL intravenously once as needed 100 mL, IntraVENous, IMG once PRN, contrast, Starting on Fri04/20/24 at 1105, For 1 dose IPRATROPIUM BROMIDE HFA AERS (7 sources) Anticholinergic Start: 03-29-2011 End: 11-13-2016 ATROVENT HFA AERS 4 times daily as needed IPRATROPIUM BROMIDE HFA AERS [id number] Monroe Mckeon NP Start: 03-29-2011 ATROVENT HFA A ERS 4 times daily as needed IPRATROPIUM BROMIDE HFA AERS [id number] Justine Concepcion RN 24 hr isosorbide mononitrate 60 mg extended release oral tablet (20 sources) Start: 04-27-2024 End: 04-27-2024 take 1 tablet by mouth once daily 30 mg, Oral, Daily, First dose on Fri04/27/24 at 0900, Do not chew or crush ER tablets; may be divided in half. Due to insoluble matrix embedding, ER tablets that are scored may be split. Start: 02-27-2021 End: 11-07-2023 take 1 tablet by mouth once daily, then take 1 tablet by mouth every twenty-four hours Isosorbide Mononitrate 30 mg tablet extended release 24 hr Discontinued 30 mg PO DAILY November 01, 2022 4:09pm November 07, 2023 3:23pm HYPERTENSION Start: 03-12-2013 take 1 tablet by mouth once da kleber IMDUR 30 MG [id number] One tablet by mouth daily ISOSORBIDE MONONITRATE [id number] Almaz Evans PA-C Start: 02-02-2013 End: 02-22-2021 take 1 tablet by mouth once daily, then take 1 tablet by mouth every twenty-four hours Isosorbide Mononitrate 30 mg tablet extended release 24 hr Discontinued 30 mg PO DAILY 90 3 October 17, 2020 4:18pm February 22, 2021 4:45pm Start: 08-12-2011 IMDUR 30 MG XR 24H-TAB 1/2 tablet daily ISOSORBIDE MONONITRATE [id number] Andrew Green MD meloxicam 15 mg oral tablet (9 sources) Nonsteroidal Anti-inflammatory Drug Start: 05-15-2023 End: 07-11-2023 take 1 tablet by mouth once daily Meloxicam 15 mg Tablet Discontinued 15 mg PO DAILY 15 15 0 May 15, 2023 1:00am July 11, 2023 10:44am methocarbamol 500 mg oral tablet (9 sources) Muscle Relaxant Start: 05-15-2023 End: 07-30-2023 Methocarbamol 500 mg Tablet Discontinued 750 mg PO THREE TIMES A DAY as needed for spasms/pain 35 7 0 May 15, 2023 5:32pm July 30, 2023 8:17am Start: 05-15-2023 take 750 mg by mouth three times daily Methocarbamol Active 750 MG PO THREE TIMES A DAY 35 7 May 15, 2023 4:32pm MOMETASONE FUROATE (8 sources) Corticosteroid Start: 04-03-2011 End: 04-10-2015 ASMANEX 120 METERED DOSES 22 0 MCG/INH AEPB take as directed MOMETASONE FUROATE [id number] Grey Harry MD Start: 04-03-2011 End: 04-10-2015 ASMANEX 120 METERED DOSES 22 0 MCG/INH AEPB take as directed MOMETASONE FUROATE [id number] Grey Harry MD Start: 04-03-2011 ASMANEX 120 ME TERED DOSES 220 MCG/INH AEPB take as directed MOMETASONE FUROATE [id number] Grey aHrry MD mupirocin 0.02 mg/mg topical ointment (2 sources) RNA Synthetase Inhibitor Antibacterial Start: 04-26-2024 End: 04-27-2024 1 Application, Nasal, 2 times daily, First dose on Fri04/26/24 at 0915, For 5 days, Recovery & On Unit, Indications: MRSA Nasal Decolonization 1 ml naloxone hydrochloride 0.4 mg/ml injection (2 sources) Opioid Antagonist Start: 04-26-2024 End: 04-27-2024 0.4 mg, IntraVENous, Every 5 min PRN, opioid reversal, respiratory depression, Starting on Fri04/26/24 at 1029, +++ For RR nitroglycerin 0.4 mg sublingual tablet (20 sources) Nitrate Vasodilator Start: 08-14-2011 End: 12-05-2022 Nitroglycerin 0.4 mg tablet, sublingual Discontinued 0.4 mg SL Q5M as needed for Chest Pain 15 02May 22, 2018 4:46pm December 05, 2022 9:26am nystatin [id number] unt/ml oral suspension (8 sources) Polyene Antifungal Start: 04-13-2024 End: 04-18-2024 take 1 mL by mouth three times daily Nystatin 100,000 unit/mL suspension Discontinued 1 mL PO THREE TIMES A DAY 60 5 0 April 13, 2024 1:00am April 17, 2024 1:00am April 18, 2024 1:10am swish and swallow Tiotropium-Olodater ol (8 sources) Anticholinergic, beta2-Adrenergic Agonist Start: 07-30-2023 End: 12-08-2023 Tiotropium-Olodatero l (Stiolto Respimat) 2.5-2.5 mcg/actuation mist Discontinued 2 NMA INHALATION DAILY 4 July 30, 2023 12:00am December 08, 2023 12:55pm Start: 07-30-2023 End: 12-08-2023 Tiotropium-Olodaterol (Stiol to Respimat) 2.5-2.5 mcg/actuation mist Discontinued 2 NMA INHALATION DAILY July 30, 2023 12:00am December 08, 2023 12:55pm omeprazole 40 mg delayed release oral capsule (20 sources) Proton Pump Inhibitor Start: 02-11-2012 End: 04-01-2022 take 1 capsule by mouth once daily Omeprazole 40 mg capsule,delayed release(DR/EC) Discontinued 40 mg PO DAILY April 27, 2019 7:32am July 09, 2019 2:26pm Start: 01-06-2012 take 1 tablet by eddi th once daily OMEPRAZOLE 20 MG CPDR One tablet by mouth daily OMEPRAZOLE [id number] Alexey Hurt MD Start: 08-14-2011 End: 08-14-2011 PRILOSEC 40 MG CPDR four tab lets twice a day OMEPRAZOLE [id number] Grey Harry MD Start: 08-14-2011 End: 08-14-2011 PRILOSEC 40 MG CPDR four tab lets twice a day OMEPRAZOLE [id number] Grey Harry MD Start: 08-14-2011 PRILOSEC 40 MG CPDR four tablets twice a day OMEPRAZOLE [id number] Grey Harry MD Start: 03-29-2011 take 1 tablet by eddi th once daily PRILOSEC 40 MG CPDR One tablet by mouth daily OMEPRAZOLE [id number] Justine Concepcion RN oxyCODONE hydrochloride 5 mg oral tablet (9 sources) Opioid Agonist Start: 05-15-2023 End: 05-30-2023 take 2.5-5 mg by mouth every six hours as needed for pain Oxycodone 5 mg Tablet Discontinued 2.5 - 5 mg PO EVERY 6 HOURS as needed for pain 28 7 0 May 15, 2023 May 30, 2023 9:54am Status post lumbar spinal fusion Arthrodesis status pantoprazole 40 mg delayed release oral tablet (20 sources) Proton Pump Inhibitor Start: 04-27-2024 End: 04-27-2024 take 40 mg by mouth once daily before breakfast 40 mg, Oral, Daily before breakfast, First dose on Fri04/27/24 at 0600, Substituted for omeprazole (Prilosec). Do not crush, chew, or split. Start: 11-03-2014 End: 06-20-2017 take 1 tablet by mouth once daily before breakfast Pantoprazole 40 MG tablet Discontinued 40 mg PO DAILY 30 0 November 03, 2014 12:00am June 20, 2017 2:41pm Before breakfast perflutren protein A microsphere (Optison) 3 mL in sodium chloride (PF) 0.9 % 10 mL IV syringe (2 sources) Start: 04-26-2024 End: 04-27-2024 0-10 mL, IntraVENous, IMG once PRN, other, Suboptimal echo image, Starting on Fri04/26/24 at 0906, For 1 dose, CV Procedural Medications, Administer via slow IVP for suboptimal echocardiogram enhancement. May administer as divided doses to reach optimal image enhancement POTASSIUM CHLORIDE BRIAN CR (8 sources) Start: 08-23-2013 End: 04-10-2015 take 1 tablet by mouth twice daily KLOR-CON M20 20 MEQ CR-TABS One tablet by mouth twice daily POTASSIUM CHLORIDE BRIAN CR [id number] Justine Concepcion RN Start: 08-23-2013 End: 04-10-2015 take 1 tablet by mouth twice daily KLOR-CON M20 20 MEQ CR-TABS One tablet by mouth twice daily POTASSIUM CHLORIDE BRIAN CR [id number] Grey Harry MD Start: 08-23-2013 take 1 tablet by [facility] twice daily KLOR-CON M20 20 MEQ CR-TABS One tablet by mouth twice daily POTASSIUM CHLORIDE BRIAN CR [id number] Justine Concepcion RN predniSONE 10 mg oral tablet (20 sources) Start: 02-02-2013 End: 02-17-2013 Prednisone 10 MG tablet Discontinued 10 mg PO DAILY 33 0 February 02, 2013 1:00am February 17, 2013 1:06am Take 4 tablets daily x3 then 3 daily x3 then 2 daily x3 then 1 daily times 3 then One QOD for 3 doses. prochlorperazine 10 mg oral tablet (20 sources) Phenothiazine Start: 01-26-2018 End: 06-01-2018 take 1 tablet by mouth three to four times daily as needed for nausea and vomiting Prochlorperazine Maleate (Compazine) 10 mg tablet Discontinued 10 mg PO 3 to 4 times per day as needed for nausea and vomiting 7 0 January 26, 2018 1:00am June 01, 2018 3:57pm promethazine hydrochloride 25 mg oral tablet (20 sources) Phenothiazine Start: 01-26-2018 End: 01-26-2018 inject 25 mg by intramuscular injection once promethazine 50 mg/mL injection solution Discontinued 25 MG IM ONCE 0.5 January 26, 2018 12:05pm January 26, 2018 12:51pm Start: 01-26-2018 End: 01-26-2018 take 1 tablet by mouth every six hours as needed for nausea and vomiting Promethazine 25 mg tablet Discontinued 25 mg PO EVERY 6 HOURS as needed for nausea and vomiting 8 0 January 26, 2018 1:00am January 26, 2018 2:16pm rosuvastatin calcium 40 mg oral tablet (20 sources) HMG-CoA Reductase Inhibitor Start: 01-11-2013 End: 06-20-2017 take 1 tablet by mouth at bedtime Rosuvastatin (Crestor) 40 MG tablet Discontinued 40 mg PO AT BEDTIME November 03, 2014 1:46am June 20, 2017 2:38pm Start: 08-12-2011 End: 07-09-2012 take 1 tablet by mouth once daily CRESTOR 40 MG TABS One tablet by mouth daily ROSUVASTATIN CALCIUM [id number] Skye Pena RN 1000 ml sodium chloride 9 mg/ml injection (6 sources) Start: 04-26-2024 End: 04-26-2024 take 50 mL intravenously every hour 50 mL/hr, IntraVENous, Continuous, Starting on Fri04/26/24 at 0545, Preprocedure, Upon admission to sameday - please start iv if patient does not have iv access. Start: 04-08-2024 End: 04-08-2024 take 5-40 mL intravenously every twelve hours 5-40 mL, IntraVENous, Every 12 hours, First dose on Maria G 04/08/24 at 0800, Preprocedure, For Line Patency: Peripheral IV = 5 mL; Midline or Central Line = 10 mL/lumen. If following IV push medication, administer flush at same rate as the IV push. Flush volume is determined by type of infusion therapy being given. For non-viscous solutions use: Peripheral IV = 5 mL Midline or Central Line = 10 mL/lumen For viscous solutions (i.e. blood components, parenteral nutrition, contrast media, or after obtaining blood sample) use: Peripheral IV = 10 mL Midline or Central Line = 20 mL/lumen Start: 04-08-2024 End: 04-08-2024 5-40 mL, IntraVENous, PRN, l ine care, After every IV line use, Starting on Maria G 04/08/24 at 0757, Preprocedure, For Line Patency: Peripheral IV = 5 mL; Midline or Central Line = 10 mL/lumen. If following IV push medication, administer flush at same rate as the IV push. Flush volume is determined by type of infusion therapy being given. For non-viscous solutions use: Peripheral IV = 5 mL Midline or Central Line = 10 mL/lumen For viscous solutions (i.e. blood components, parenteral nutrition, contrast media, or after obtaining blood sample) use: Peripheral IV = 10 mL Midline or Central Line = 20 mL/lumen Problems Active Problems Problem Classification Problem Date Documented Da te Episodic/Chronic Abdominal pain (20 sources) Abdominal pain; Translations: [Unspecified abdominal pain] 11-12-2017 Episodic Acute and chronic tonsillitis (8 sources) Acute bacterial tonsillitis; Translations: [Acute tonsillitis due to other specified organisms] 08-02-2023 Episodic Chronic obstructive pulmonary disease and bronchiectasis (20 sources) Chronic obstructive lung disease; Translations: [Acute exacerbation of chronic obstructive airways disease] Onset: 4 07-12-2010 Chronic Congestive heart failure; nonhypertensive (1 source) Acute on chronic diastolic (congestive) heart failure; Translations: [Acute on chronic diastolic (congestive) heart failure] Onset: Chronic Coronary atherosclerosis and other heart disease (20 sources) Angina pectoris; Translations: [Coronary arteriosclerosis] Onset: 2 04-03-2011 Chronic Comment on above: Asymptomatic he had a negative stress test December 2022. This was a pharmacologic the patient's ejection fraction is known to be 65% with moderate aortic stenosis on echocardiogram December 16, 2022. Disorders of lipid metabolism (20 sources) Hyperlipidemia; Translations: [Hyperlipidemia, unspecified] Onset: 2 03-29-2011 Chronic Diverticulosis and diverticulitis (20 sources) Diverticulitis; Translations: [Diverticulitis of intestine, part unspecified, without perforation or abscess without bleeding] Onset: 4 03-10-2024 Chronic Esophageal disorders (20 sources) Gastroesophageal reflux disease; Translations: [Gastro-esophageal reflux disease without esophagitis] Onset: 4 03-10-2024 Chronic Essential hypertension (20 sources) Hypertensive disorder; Translations: [Benign essential hypertension] Onset: 4 07-12-2010 Chronic Heart valve disorders (20 sources) Aortic stenosis, non-rheumatic ; Translations: [Nonrheumatic aortic (valve) stenosis] Onset: 4 Chronic Comment on above: 04/26/24 [facility] - AVR w ith 26mm Smita S3 Hepatitis (20 sources) Viral hepatitis C; Translations: [Unspecified viral hepatitis C without hepatic coma] 10-16-2021 Episodic Comment on above: TREATED Immunizations and screening for infectious disease (8 sources) Rheumatoid factor positive; Translations: [Other specified abnormal immunological findings in serum] 04-16-2024 Episodic Mycoses (11 sources) Candidiasis of mouth; Translations: [Candidal stomatitis] 04-13-2024 Episodic Nausea and vomiting (20 sources) Nausea and vomiting; Translations: [Nausea with vomiting, unspecified] 11-30-2018 Episodic Occlusion or stenosis of precerebral arteries (20 sources) Bilateral stenosis of carotid arteries; Translations: [Occlusion and stenosis of bilateral carotid arteries] Chronic Osteoarthritis (4 sources) Degenerative joint disease involving multiple joints; Translations: [Polyosteoarthritis, unspecified] Onset: 4 07-12-2013 Chronic Other and unspecified benign neoplasm (20 sources) Polyp of colon; Translations: [Polyp of colon] 09-06-2021 Episodic Comment on above: This is a 70-year-ol d male with history of 2 prior colonoscopies and polyps found in each exam. He denies any remarkable pathology findings with this, but we will seek original reports. Given that it has been 11 years since his last colonoscopy, it is reasonable to schedule for repeat surveillance endoscopy. I have discussed with him the need to complete a bowel prep in advance of his procedure and have asked him to do an extra day of clear liquids given his history of less frequent bowel movements. I have also counseled him on the need to present for the procedure with a class a regional drivers and that any pathology results will be delayed by necessary processing like time. We will plan to schedule once we have appropriate cardiac clearance. Other and unspecified benign neoplasm (1 source) Polyp of colon; Translations: [Benign neoplasm of colon] Episodic Other circulatory disease (20 sources) Carotid bruit; Translations: [Other specified symptoms and signs involving the circulatory and respiratory systems] Onset: 2 04-03-2011 Episodic Other connective tissue disease (20 sources) Monoparesis - leg; Translations: [Other symptoms and signs involving the musculoskeletal system] 11-12-2017 Episodic Other connective tissue disease (20 sources) Muscle weakness of upper limb; Translations: [Other symptoms and signs involving the musculoskeletal system] 11-12-2017 Episodic Other connective tissue disease (19 sources) History of lumbar fusion; Translations: [Arthrodesis status] 01-28-2023 Episodic Other connective tissue disease (20 sources) Arthrodesis status; Translations: [Arthrodesis status] Onset: 5 01-28-2023 Episodic Other connective tissue disease (20 sources) Fibromyalgia; Translations: [Fibromyalgia] Onset: 4 03-10-2024 Episodic Other gastrointestinal disorders (20 sources) Heartburn; Translations: [Heartburn] 09-06-2021 Episodic Comment on above: A 70-year-old male w ith longstanding history of reflux symptoms on PPI history of tobacco use. He reports a remote history of diagnostic EGD over 20 years ago. I shared with him that it would be in his best interest to repeat this investigation while under sedation for a colonoscopy given his increased risk for Foley's esophagus/esophageal carcinoma. He expresses understanding of this recommendation and wished to proceed as described. Other gastrointestinal disorders (1 source) Heartburn; Translations: [Heartburn] Episodic Other hereditary and degenerative nervous system conditions (20 sources) Restless legs; Translations: [Restless legs syndrome] Onset: 4 03-10-2024 Chronic Other lower respiratory disease (20 sources) Fibrosis of lung; Translations: [Pulmonary fibrosis, unspecified] Onset: 4 09-28-2013 Chronic Other lower respiratory disease (2 sources) Pulmonary fibrosis, unspecified; Translations: [Pulmonary fibrosis, unspecified] Onset: 5 Chronic Other lower respiratory disease (20 sources) Dyspnea on exertion; Translations: [Shortness of breath] 07-30-2023 Episodic Other nervous system disorders (1 source) Claudication; Translations: [Peripheral vascular disease, unspecified] Onset: 4 01-31-2014 Chronic Other nervous system disorders (14 sources) Cervical myelopathy; Translations: [Disease of spinal cord, unspecified] 02-28-2023 Chronic Other nervous system disorders (6 sources) Disease of spinal cord, unspecified; Translations: [Cervical spondylosis with myelopathy] 02-28-2023 Chronic Other nervous system disorders (20 sources) Neuropathy; Translations: [Polyneuropathy, unspecified] Onset: 4 03-10-2024 Chronic Other screening for suspected conditions (not mental disorders or infectious disease) (20 sources) Patient encounter status; Translations: [Encounter for screening for malignant neoplasm of colon] Onset: 5 09-06-2021 Episodic Other upper respiratory infections (12 sources) Upper respiratory infection; Translations: [Acute pharyngitis] Onset: 1 Resolved: 1 07-12-2010 Episodic Peripheral and visceral atherosclerosis (20 sources) Renal artery stenosis; Translations: [Claudication] Onset: 2 04-19-2011 Chronic Residual codes; unclassified (5 sources) Obstructive sleep apnea (adult) (pediatric); Translations: [Obstructive sleep apnea (adult)(pediatric)] 04-30-2023 Chronic Residual codes; unclassified (20 sources) Sleep apnea; Translations: [Sleep apnea, unspecified] Onset: 4 03-10-2024 Chronic Spondylosis; intervertebral disc disorders; other back problems (8 sources) Inflammation of sacroiliac joint; Translations: [Sacroiliitis, not elsewhere classified] 12-26-2023 Chronic Spondylosis; intervertebral disc disorders; other back problems (20 sources) Lumbar radiculopathy; Translations: [Radiculopathy, lumbar region] Onset: 4 01-28-2023 Episodic Substance-related disorders (20 sources) Cigarette smoker ; Translations: [Nicotine dependence, cigarettes, uncomplicated] Onset: 5 12-03-2023 Chronic Comment on above: smoking daily Systemic lupus erythematosus and connective tissue disorders (1 source) Sicca syndrome, unspecified; Translations: [Sjogren syndrome, unspecified] Onset: 5 Chronic Unclassified (20 sources) Obstructive sleep apnea syndrome; Translations: [Obstructive sleep apnea (adult) (pediatric)] Onset: 4 07-12-2013 Chronic Unclassified (2 sources) Long-term drug therapy; Translations: [Long-term (current) use of other medications] Onset: 3 07-17-2012 Unclassified (17 sources) History of transcatheter aortic valve replacement (TAVR); Translations: [Z95.2 - Presence of prosthetic heart valve] Unclassified (3 sources) Nonrheumatic aortic valve stenosis Unclassified (3 sources) M54.16 - Radiculopathy, lumbar region,I35.0 - Nonrheumatic aortic (valve) stenosis Past or Other Problems Problem Classification Problem Date Documented Da te Episodic/Chronic Coronary atherosclerosis and other heart disease (20 sources) Coronary angioplasty status; Translations: [Stented coronary artery] Onset: 03-24-2011 05-29-2011 Episodic Comment on above: PTCA/Stent to CFX . Asymptomatic with logic stress test December 2022. Heart valve disorders (4 sources) Heart murmur; Translations: [Cardiac murmur, unspecified] Onset: 04-03-2011 04-03-2011 Episodic Nonspecific chest pain (4 sources) Chest pain; Translations: [Chest pain, unspecified] Onset: 04-03-2011 04-03-2011 Episodic Other aftercare (6 sources) Other long term acute care registered nurse (current) drug therapy; Translations: [Long-term (current) use of other medications] Onset: 07-17-2012 04-11-2015 Episodic Other circulatory disease (2 sources) Other specified symptoms and signs involving the circulatory and respiratory systems; Translations: [Other symptoms involving cardiovascular system] Onset: 04-23-2024 Episodic Other diseases of veins and lymphatics (2 sources) Venous insufficiency (chronic) (peripheral); Translations: [Venous insufficiency (chronic) (peripheral)] Onset: 12-04-2023 Episodic Other lower respiratory disease (7 sources) Dyspnea; Translations: [Cough] Onset: 07-12-2010 Resolved: 08-11-2010 04-03-2011 Episodic Other lower respiratory disease (1 source) Cough; Translations: [Cough] Onset: 07-12-2010 Resolved: 08-11-2010 07-12-2010 Episodic Other lower respiratory disease (1 source) Shortness of breath; Translations: [Shortness of breath] Onset: 04-13-2024 Episodic Other nutritional; endocrine; and metabolic disorders [...] adult] Onset: 01-11-2013 Resolved: 04-11-2015 04-11-2015 Episodic Residual codes; unclassified (1 source) Edema, unspecified; Translations: [Edema, unspecified] Onset: 12-04-2023 Episodic Unclassified (9 sources) Severe aortic stenosis 04-12-2024 Results Test Name Value Interpretation Reference Range Facility Bilirubin directOrdered By: JANNETH Burt on 09-13-2024 Bilirubin.direct [Mass/Vol] 0.22 mg/dL 0.00-0.30 [facility] Bilirubin, totalOrdered By: JANNETH Burt on 09-13-2024 Bilirubin [Mass/Vol] 0.46 mg/dL 0.00-1.30 [facility] - Chemistry and C hemistry - challengeOrdered By: JANNETH Burt on 09-13-2024 AST [Catalytic activity/Vol] 24 U/L <38 [facility] Liver Profileon 09-13-2024 Albumin [Mass/Vol] 3.9 g/dL Normal 3.4-4.8 [facility] Comment on above: Performed By: #### L [id number] ####[facility] [address] [place], [address] ALK PHOS 86 U/L Normal 40-129 [facility] Comment on above: Performed By: #### L [id number] ####[facility] [address] [place], [address] ALT [Catalytic activity/Vol] 18 U/L Normal <=46 [facility] Comment on above: Performed By: #### L [id number] ####[facility] [address] [place], [address] AST [Catalytic activity/Vol] 24 U/L Normal <=37 [facility] Comment on above: Performed By: #### L [id number] ####[facility] [address] [place], [address] Bilirubin [Mass/Vol] 0.46 mg/dL Normal 0.00-1.30 [facility] Comment on above: Performed By: #### L [id number] ####[facility] [address] [place], [address] Bilirubin.direct [Mass/Vol] 0.22 mg/dL Normal 0.00-0.30 [facility] Comment on above: Performed By: #### L [id number] ####[facility] [address] [place], [address] Globulin (S) [Mass/Vol] 3.1 g/dL Normal 2.2-4.2 [facility] Comment on above: Performed By: #### L [id number] ####[facility] [address] [place] [place], [address] T PROT 6.9 g/dL Normal 5.9-8.4 [facility] Comment on above: Performed By: #### L 500.3400 ####[facility] [address] [place], [address] Serum globulin measurementOr dered By: JANNETH Burt on 09-13-2024 Globulin (S) [Mass/Vol] 3.1 g/dL 2.2-4.2 [facility] Serum or plasma alanine haynes otransferase (ALT) measurementOrdered By: JANNETH Burt on 09-13-2024 ALT [Catalytic activity/Vol] 18 U/L <47 [facility] Serum or plasma albumin scottie urement (mass/volume)Ordered By: JANNETH Burt on 09-13-2024 Albumin [Mass/Vol] 3.9 g/dL 3.4-4.8 [facility] Serum or plasma alkaline megan sphatase measurementOrdered By: JANNETH Burt on 09-13-2024 ALP [Catalytic activity/Vol] 86 U/L 40-129 [facility] Total proteinOrdered By: JANNETH Burt on 09-13-2024 Protein [Mass/Vol] 6.9 g/dL 5.9-8.4 [facility] Pulmonary Visit Reporton Pulmonary Visit Report [facility] [place] [address] [place] [address] OFFICE VISIT Date of Service: 09/08/24 MR#: [id number] Acct: [id number] Name: PATRICE VERGARA Rep #: [id number] : 1950 Provider: Marisel Burt NP Age/Sex: 73/M Location: [facility] [place] [place].[facility] Status: Signed Assessment and Plan Assessment and Plan (1) Pulmonary fibrosis: Status: Acute Plan: There is a progressive UIP pattern identified on the CT scan when compared to the CTA from 2014. There is peripheral honeycombing and traction bronchiectasis present. Pulmonary Fibrosis is confirmed with a significant reduction in the DLCO when compared to the PFT to 2014. There was a PFT from April 2023 which shows a similar DLCO. He has an isolated atypical p-ANCA elevation. He has worked to be fully compliant on OFEV but as experienced GI side effects on the medication that have impacted his quality of life causing him to reduce frequency of use even despite using Imodium. I have recommended that he reduce dosage of OFEV from 150 mg to 100 mg to be able to use the medication routinely. Continue LFT monitoring monthly for the first 3 months and then every 3 months thereafter (due 09/13/24 10/13/24, then proceed with every 3 months). I have recommended that he complete a repeat PFT and 6MWT at this time. (2) Shortness of breath on exertion: Status: Chronic Plan: Shortness of breath has dramatically improved with valve replacement. The patient understands how progressive pulmonary fibrosis can worsen shortness of breath and the rationale for beginning antifibrotic now. (3) Smoking greater than 20 pack years: Status: Chronic Comment: smoking daily Plan: Complete marijuana smoking cessation is recommended. (4) Obstructive sleep apnea: Status: Chronic Plan: He is using and benefiting from Pap therapy. I suspect that apnea is suboptimally controlled due to frequent awakenings at night due to GI upset and also air leak. In the past, he has had large air leak but apnea was controlled, so likely related to GI upset. Await adjustment with treatment for pulmonary fibrosis. Continue with compliant use of PAP therapy. I have asked him to wash his face at night prior to placing his mask on. He should continue to work with his daughter who is a RT for mask fit. No need for retitration study today. Contact the office for any new or worsening symptoms in the meantime. (5) Chronic obstructive lung disease: Status: Chronic Plan: COPD is currently stable. The patient is not exacerbating today. There is no need for oral prednisone and antibiotic therapy at this time. I have recommended that he continue with use of Sprivia at this time. Use albuterol HFA as needed. The patient is to notify this practice if he has worsening respiratory symptoms. Orders: Orders PFT Complete - DLCO, Spirometry b/a bronchodilators, lung volumes 09/16/24 J84.10 - Pulmonary fibrosis, unspecified Simple Pulmonary Exercise Test 09/23/24 J84.10 - Pulmonary fibrosis, unspecified Medications: New nintedanib (Ofev) 100 mg PO Q12H 60 caps 11RF Discontinued nintedanib (Ofev) Patient to begin after aortic valve replacement. Discontinued Reason: Order Changed 150 mg PO Q12H 60 caps 3RF Plan Details Follow Up: 3 Months (LMR) HPI HPI Comments Details: Patient is a 73 year old male who presents to the office today for follow-up. He has pulmonary fibrosis, COPD and obstructive sleep apnea. He is ambulatory and currently on room air. He has not recently been seen in the ED or urgent care for any respiratory illness. He has not required any antibiotics or prednisone for any breathing problems. He is utilizing Spiriva. He has not recently used his albuterol rescue inhaler. He is utilizing Ofev and reports that he has concerns due to GI upset. He has had cramping and very loose stools. He has tried Imodium with little benefit. He is still stooling frequently. This is causing him to skip doses. He is asking about using a probiotic. He is not smoking cigarettes, if you recall, he quit smoking cigarettes in the year 1999. However, he is using marijuana daily. He smokes at least once daily. The patient is using BiPAP without significant snore. There are no concerns about the air pressure. He reports that he had felt rested until he started on OFEV and now he is stooling through the night an this is awakening him. The patient is reporting good compliance. He denies morning headaches. He is not having excessive nocturia. He admits to dry mouth. He does power nap in the afternoon. The patient does not feel an air leak. ESS is 4. He reports no shortness of breath whatsoever. He denies wheeze. He denies chest pain and chest tightness. He denies cough. He denies fever, chills, body aches. PFT from March 10, 2024 which shows ir (more content not included)... Normal [facility] Cardiology Visit Reporton Cardiology Visit Report [facility] [address] [place] [address]. [address] [place] [address] OFFICE VISIT Date of Service: 09/03/24 MR#: [id number] Acct: [id number] Name: PATRICE VERGARA Rep #: [id number] : 1950 Provider: Dr. Bernard gilliland MD Age/Sex: 73/M Location: [facility] [place] [place].[facility] Status: Signed HPI HPI History of Present Illness Details: Patient is a very pleasant 73-year-old white male that comes in with his daughter today who works here in pulmonary rehab. He is here for monitoring of his cardiovascular status. 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 He does have a history of aortic valve stenosis status post TAVR April [address] [facility] [facility] by Dr. Galo Koo.. He underwent a diagnostic heart catheterization which demonstrated left main with minimal CAD, LAD with 50% mid LAD lesion, IFR was negative, minimal CAD in the circumflex, minimal CAD in the RCA. He then did undergo a TAVR on April 27, 2024. Patient states that he does feel significantly better. He felt better immediately post TAVR placement. He finds that he is no longer short of breath. He states that he previously thought it was related to his COPD and his medications were not optimized. However he now feels it is likely related to his valve. The patient participated in cardiac rehab for about 6 weeks. He had to stop it because of lower extremity discomfort related to back pain. He is able to get around the house he is actually chopping wood and working in his yard doing weed eating without restrictions. The patient does have a history of pulmonary fibrosis and was recently started on a new medication to slow the progression. This is caused some GI upset but he is becoming tolerant of it. The patient had his 1 month follow-up echocardiogram done at [facility] [facility]. He is due to follow-up there in 1 year for his surveillance. Patient reports that he is doing very well in his home environment all things considered. I did go over SBE prophylaxis with him and his daughter in detail. Patient denies any chest pain denies any significant shortness of breath or dyspnea on exertion. His rate limiting factor is his back for his ambulation. Intake Vital Signs 07/01/24 07:20 07/29/24 07:48 09/03/24 09:47 Height 5 ft 11 in 5 ft 11 in 5 ft 11 in Weight: 170 lb BMI 23.7 BP 113/78 Blood Pressure Location Lt brachial Position Sitting Respiration 16 Pulse 53 L Pulse Source Monitor Intake Visit Reasons: 3 M FU Speech Pathologist Required: No Accompanied by: Self Is patient in pain?: No Allergies codeine Allergy (Verified 09/03/24 09:49) Shortness of breath lisinopril Allergy (Verified 09/03/24 09:49) Shortness of breath Medications ???Medication ???Instructions ???Recorded ???Confirmed ???Type omeprazole 40 mg capsule,delayed 40 mg PO DAILY Indigestion 3 09/03/24 History release nitroglycerin 0.4 mg sublingual 0.4 mg sublingual Q5M PRN Chest 09/03/24 Rx tablet Pain #25 tabs atorvastatin 40 mg tablet 40 mg PO QDAY HYPERLIPIDEMIA 04/2309/03/24 History sennosides 8.6 mg-docusate sodium 2 tab PO BID PRN constipation 7 0 05/15/23 09/03/24 Rx 50 mg tablet (Stool days #28 tabs Softener-Stimulant Laxative) tramadol 50 mg tablet 50 mg PO Q6 PRN 07/11/23 09/03/24 History amlodipine 5 mg tablet 5 mg PO DAILY HYPERTENSION #90 tab s 07/22/23 09/03/24 Rx clopidogrel 75 mg tablet 75 mg PO DAILY BLOOD THINNER #90 09/04/23 09/03/24 Rx tabs isosorbide mononitrate 30 mg 30 mg PO DAILY HYPERTENSION #90 09/03/24 Rx tablet,extended release 24 hr tabs carvedilol 25 mg tablet 12.5 mg (1/2 x 25 mg) PO BID 11/0909/03/24 Rx HYPERTENSION #180 tabs nintedanib 150 mg capsule (Ofev) 150 mg PO Q12H #60 caps 04/13/24 0 09/03/24 Rx aspirin 81 mg tablet,delayed 81 mg PO QDAY 06/09/24 09/03/24 Hi story release gabapentin 400 mg capsule 1,600 mg PO BID PAIN 09/03/2408/22 History tiotropium bromide 1.25 2 puff inhalation QDAY 09/03/24 History mcg/actuation mist for inhalation (Spiriva Respimat) Ejection fraction %: 69 Have you fallen in the past year?: No [facility] Medical History History of transcatheter aortic valve replacement (TAVR) Loss of hearing No natural teeth Hepatitis High cholesterol Injury of back History of hiatal hernia Sleep apnea Leg cramps Chest pain Aortic stenosis Neck fracture Chronic back pain Lumbar pain COVID Carotid atherosclerosis Venous insufficiency Venous ulcer Wears hearing aid Wears glasses Complete edentulism, class III Alcohol use Marijuana use Injury of (more content not included)... Normal [facility] Bilirubin directOrdered By: JANNETH Burt on 08-13-2024 Bilirubin.direct [Mass/Vol] 0.19 mg/dL 0.00-0.30 [facility] Bilirubin, totalOrdered By: STONE DRILLER Marisel Burt on 08-13-2024 Bilirubin [Mass/Vol] 0.39 mg/dL 0.00-1.30 [facility] - Chemistry and C hemistry - challengeOrdered By: STONE DRILLER Marisel Burt on 08-13-2024 AST [Catalytic activity/Vol] 24 U/L <38 [facility] Liver Profileon 08-13-2024 Albumin [Mass/Vol] 3.4 g/dL Normal 3.4-4.8 [facility] Comment on above: Order Comment: Month ly for 1st 3 months on OFEV Performed By: #### L 500.3400 ####[facility] [address] [place], [address] ALK PHOS 80 U/L Normal 40-129 [facility] Comment on above: Order Comment: Month ly for 1st 3 months on OFEV Performed By: #### L 500.3400 ####[facility] [address] [place], [address] ALT [Catalytic activity/Vol] 17 U/L Normal <=46 [facility] Comment on above: Order Comment: Month ly for 1st 3 months on OFEV Performed By: #### L 500.3400 ####[facility] [address] [place], [address] AST [Catalytic activity/Vol] 24 U/L Normal <=37 [facility] Comment on above: Order Comment: Month ly for 1st 3 months on OFEV Performed By: #### L 500.3400 ####[facility] [address] [place], [address] Bilirubin [Mass/Vol] 0.39 mg/dL Normal 0.00-1.30 [facility] Comment on above: Order Comment: Month ly for 1st 3 months on OFEV Performed By: #### L 500.3400 ####[facility] [address] [place], [place], [id number] Bilirubin.direct [Mass/Vol] 0.19 mg/dL Normal 0.00-0.30 [facility] Comment on above: Order Comment: Month ly for 1st 3 months on OFEV Performed By: #### L 500.3400 ####[facility] [address] [place], [place], [id number] Globulin (S) [Mass/Vol] 3.1 g/dL Normal 2.2-4.2 [facility] Comment on above: Order Comment: Month ly for 1st 3 months on OFEV Performed By: #### L 500.3400 ####[facility] [address] [place], [place], [address] T PROT 6.5 g/dL Normal 5.9-8.4 [facility] Comment on above: Order Comment: Month ly for 1st 3 months on OFEV Performed By: #### L 500.3400 ####[facility] [address] [place], [place], [id number] Serum globulin measurementOr dered By: JANNETH Burt on 08-13-2024 Globulin (S) [Mass/Vol] 3.1 g/dL 2.2-4.2 [facility] Serum or plasma alanine haynes otransferase (ALT) measurementOrdered By: JANNETH Burt on 08-13-2024 ALT [Catalytic activity/Vol] 17 U/L <47 [facility] Serum or plasma albumin scottie urement (mass/volume)Ordered By: JANNETH Burt on 08-13-2024 Albumin [Mass/Vol] 3.4 g/dL 3.4-4.8 [facility] Serum or plasma alkaline megan sphatase measurementOrdered By: JANNETH Burt on 08-13-2024 ALP [Catalytic activity/Vol] 80 U/L 40-129 [facility] Total proteinOrdered By: JANNETH Burt on 08-13-2024 Protein [Mass/Vol] 6.5 g/dL 5.9-8.4 [facility] L/S Spine Min 4 Viewson L/S Spine Min 4 Views [facility] [address] [place] [address] L/S Spine Min 4 Views MR#: [id number] Acct: [id number] Name: PATRICE VERGARA Rep #: [id number] : 1950 M 73 From: Jm Hauser MD PCP: Dr. Beulah Catherine DO Status: DEP AMB Study: L/S Spine Min 4 Views Date of Exam: 07/29/24 Exam# [id number] Ordering Dr: Amarjit Irving MD PROCEDURE: L/S SPINE MIN 4 VIEWS 07/29/2024 REASON FOR EXAM: S/P FUSION TECHNIQUE: Four views; AP, lateral and flexion-extension COMPARISON: 11/13/2023 FINDINGS: Intervertebral disc spacers L3 through S1 with posterior fusion L3, L5 and S1 again noted appears anatomic and intact. No fracture or malalignment. No evidence of instability. L1 through L3 spondylosis/discogeni c changes not significantly changed in appearance.. Abdominal aortic atherosclerotic changes with bilateral likely renal artery stents again noted. RAD/L/S Spine Min 4 Views IMPRESSION: No significant interval change as detailed above. Reading Location: [facility] CC: Dr. Amarjit Irving MD; Dr. Beulah Catherine DO Girls Tennis Coach: Signed Normal [facility] No Panel InformationOrdered By: Pernell Raines on 07-29-2024 [facility] [address] [place] [address] CR - Individual Treatment Plan MR#: [id number] Acct: [id number] Name: PATRICE VERGARA Rep #:[id number] : 1950 73 From: Pernell HAINES, RVT PCP: Dr. Beulah Catherine DO DOS: 07/23/24 Exercise - Initial Assessment Physician Prescribed Exercise Modalities: Treadmill, SciFit Stepper and SciFit Lateral Traffic Operations Engineer Nutrition - Initial Assessment Weight Mgt (Other Care) Height: 5 ft 11 in Weight:: 179 lb BMI: 25.0 Core - Initial Assessment Hypertension Resting Blood Pressure:: 126/64 [place] [employer] Hypertension Guidelines Psychosocial - Initial Assess Target Goals Target Goals Referral to Behavioral Health PS - Interventions: Yes: Attend Stress Management Classes Patient Health Questionnaire PHQ-9 Screening 60-Day Re-eval Assessment: 1. Little interest or pleasure in doing things: Not at all 2. Feeling down, depressed, or hopeless: Not at all 3. Trouble falling or staying asleep, or sleeping too much: Not at all 4. Feeling tired or having little energy: Several days 5. Poor appetite or overeating: Not at all 6. Feeling bad about yourself -- or that you are a failure or have let yourself or your family down: Not at all 7. Trouble concentrating on things, such as reading the newspaper or watching television: Not at all 9. Thoughts that you would be better off , or of hurting yourself in some way: Not at all How difficult have these problems made it for you to do your work, take care of things at home, or get along with other people?: Not difficult at all Total Score: 1 Self-Efficacy 6-Item Scale 60-Day Re-eval Assessment: We would like to know how confident you are in doing certain activities. Please select your confidence level for: Fatigue Select Number: 10 Physical Discomfort or Pain Select Number: 10 Emotional Distress Select Number: 10 Other Symptoms or Health Problems Select Number: 7 Different Tasks and Activities Select Number: 10 Medication Select Number: 6 Total Score:: 8 Nutrition Survey Nutrition Survey Instructions Scoring Instructions Exercise - 30-day Assessment Physician Prescribed Exercise Modalities: Treadmill, SciFit Stepper and SciFit Lateral [place] Exercise - 60-day Assessment Visit Date of Eval: 07/29/24 Session #:: 16 (Pt has been on medical hold since 07/10/24 due to back/leg pain. ) Physician Prescribed Exercise Modalities: Treadmill, SciFit Stepper and SciFit Lateral Traffic Operations Engineer Frequency: 3x/week for 12 weeks [36 sessions] Intensity: 60-80% of age predicted maximum heart rate reserve Duration: 30 - 45 minutes Current METSs:: 3.4 Target Heart Rate:: 87-110 Current RPE:: 12 Maximum Excercise HR:: 73 Resting Blood Pressure: 142/68 Maximum Exercise Blood Pressure: 136/80 EKG Type: SB to NSR with rare PAC Outcomes & Goals Goals:: Verbalizes understanding of THR, RPE & goal METS by session 6, Documentsin home exercise log/reports 30 min aerobic 5 day/wk by DC, Demonstrates accurate pulse taking by DC and Other additional outcome/goals: see below Intervention & Plan Exercise Program Goals: Instruct on personal THR & RPE, Instruct on MET level & personal MET goal, Show patient to take own pulse /validate performance until accurate, Instruct on home exercise and Other additional plan/int Physical Activity Home Exercise Physical Activity - Home Exercise: Safe Exercise, Warm-up, Self-monitoring, Cool-Down, Home Exercise > 30 min Daily and Sitting Time <3 hours/daily Outcomes & Goals Outcomes/Goals: Demonstrates correct Warm-up/exercise Cool-Down (S3) if = 2.5 METs, Verbalizes symptoms of exercise intolerance by Session 3 (S3), Demonstratesafe equipment use (S3) & follows exercise prescrition (6) and Other: See below Intervention & Plan Plan/Intervention: Instruct warm-up & cool-down if exercising at > 2 METs, Instruct on symptoms of exercise intolerance & actions to take, Instruct & monitor on saf, Assess intial functional capacity & safety risk and Other See below 30-day Reassessments 30 day Reassessments:: Progressing Reassessment Notes & Comments:: Proper warm up and cool down explained to pt. Pt is able to return demonstration in his daily sessions. Exercise - 90-day Assessment Physician Prescribed Exercise Modalities: Treadmill, SciFit Stepper and SciFit Lateral Monserrate Exercise - Final/Discharge Physician Prescribed Exercise Modalities: Treadmill, SciFit Stepper and SciFit Lateral Monserrate Nutrition - 30-Day Assessment Weight Mgt (Other Care) Height: 5 ft 11 in Weight:: 179 lb BMI: 25.0 Nutrition - 60-Day Assessment Program Goals Nutrition Program Goals Patient has diagnosis of Hyperlipidemia (ICD E78)?: Yes Visit Date of Eval: 07/29/24 Session #:: 16 Cholesterol/Lipids (Other Core Measures) Determine presence & major risk factors that modify LDL goal: Cigarette smoking,Hypertension or hypertensive medication, Low HDL cholesterol <40 mg/dL*, Family history of premature CHD in Male < 55 years: female <65 yearsFa and Age men > 45years; women (more content not included)... [facility] Orthopedic Visit Reporton Orthopedic Visit Report [facility] [address] [place] [address] OFFICE VISIT Date of Service: 07/29/24 MR#: [id number] Acct: [id number] Name: PATRICE VERGARA Rep #: [id number] : 1950 Provider: Dr. Amarjit Irving MD Age/Sex: 73/M Location: [facility] [place] [place].[facility] Status: Signed Intake Vital Signs 07/01/24 07:20 07/29/24 07:48 Height 5 ft 11 in 5 ft 11 in Intake Visit Reasons: LUMBAR SPINE Accompanied by: Self Is patient in pain?: Yes Allergies codeine Allergy (Verified 07/29/24 11:09) Shortness of breath lisinopril Allergy (Verified 07/29/24 11:09) Shortness of breath Medications ???Medication ???Instructions ???Recorded ???Confirmed ???Type omeprazole 40 mg capsule,delayed 40 mg PO DAILY Indigestion 3 07/29/24 History release nitroglycerin 0.4 mg sublingual 0.4 mg sublingual Q5M PRN Chest 07/29/24 Rx tablet Pain #25 tabs atorvastatin 40 mg tablet 40 mg PO QDAY HYPERLIPIDEMIA 04/2307/29/24 History gabapentin 400 mg capsule 800 mg PO BID PAIN 04/23/23 History sennosides 8.6 mg-docusate sodium 2 tab PO BID PRN constipation 7 0 05/15/23 07/29/24 Rx 50 mg tablet (Stool days #28 tabs Softener-Stimulant Laxative) tramadol 50 mg tablet 50 mg PO Q6 PRN 07/11/23 07/29/24 History amlodipine 5 mg tablet 5 mg PO DAILY HYPERTENSION #90 tab s 07/22/23 07/29/24 Rx clopidogrel 75 mg tablet 75 mg PO DAILY BLOOD THINNER #90 09/04/23 07/29/24 Rx tabs isosorbide mononitrate 30 mg 30 mg PO DAILY HYPERTENSION #90 07/29/24 Rx tablet,extended release 24 hr tabs carvedilol 25 mg tablet 12.5 mg (1/2 x 25 mg) PO BID 11/0907/29/24 Rx HYPERTENSION #180 tabs fluticasone fur. 200 mcg-umeclid 1 inh inhalation DAILY #60 ea 02/22 007/29/24 Rx 62.5 mcg-vilant 25 mcg inhalat.powder (Trelegy Ellipta) nintedanib 150 mg capsule (Ofev) 150 mg PO Q12H #60 caps 04/13/24 0 07/29/24 Rx aspirin 81 mg tablet,delayed 81 mg PO QDAY 06/09/24 07/29/24 Hi story release Have you fallen in the past year?: No [facility] Medical History History of transcatheter aortic valve replacement (TAVR) Loss of hearing No natural teeth Hepatitis High cholesterol Injury of back History of hiatal hernia Sleep apnea Leg cramps Chest pain Aortic stenosis Neck fracture Chronic back pain Lumbar pain COVID Carotid atherosclerosis Venous insufficiency Venous ulcer Wears hearing aid Wears glasses Complete edentulism, class III Alcohol use Marijuana use Injury of head and neck Loss of consciousness History of diverticulitis Former smoker CPAP (continuous positive airway pressure) dependence History of pain when walking Neuropathy Hypertension History of stress test History of echocardiogram Cardiology follow-up encounter HLD (hyperlipidemia) Renal artery stenosis Bilateral carotid artery stenosis Nonrheumatic aortic (valve) stenosis H/o addiction H/o blood transfusion Heart disease Lung disease Arthritis DJD (degenerative joint disease) Hiatal hernia GERD (gastroesophageal reflux disease) Bilateral carotid bruits Fibromyalgia Back pain Restless legs Peripheral artery disease Atherosclerotic heart disease of [place] coronary artery without angina pectoris Obstructive sleep apnea Right leg weakness Right arm weakness Hepatitis C Chronic obstructive lung disease Benign essential hypertension Acute exacerbation of chronic obstructive airways disease Abdominal pain Surgical History S/P aortic valve replacement History of coronary artery stent placement History of nasal surgery History of cardiac catheterization Hx of colonoscopy Hx of hemorrhoidectomy Presence of stent in coronary artery ( 03/2011) Postsurgical percutaneous transluminal coronary angioplasty (PTCA) status ( 03/2011) History of stent insertion of renal artery History of back surgery Family History Brother Tonsil cancer Cancer Skin Diabetes Sister Breast cancer Diabetes Mother Diabetes Hypertension CAD (coronary artery disease) Myocardial infarction Brother CAD (coronary artery disease) Myocardial infarction Cardiomyopathy Father Cancer Social History household members: spouse housing: house current occupational status: employed Smoking Status: Former smoker quit date: 06/23/99 second hand exposure: Yes alcohol intake: never substance use type: marijuana and other details: h/o addiction caffeine: Yes what type of physical activity do you participate in: walking frequency: 5-6 times per wee (more content not included)... Normal [facility] Sjogren's Antibodies A/Bon 0 07-14-2024 ANTI-SS-A < 0.2 Normal 0.0-0.9 [facility] Comment on above: Performed By: #### L 3100.9100 ####[facility] [address] [facility] [address] [place], [place], [id number] ANTI-SS-B < 0.2 Normal 0.0-0.9 [facility] Comment on above: Result Comment: Perf ormed at: - [facility] [id number] Wall Insulation Sprayer: Lon Lou PhD, Phone: [phone] Performed By: #### L 3100.1900 ####[facility] [address] [place], [place], [id number] Sjogren's Antibodies A/Bon 0 07-09-2024 ANTI-SS-A TNP Normal [facility] Comment on above: Result Comment: RE-O RDERING Performed By: #### L [id number] ####[facility] [address] [place], [place], [phone] ANTI-SS-B TNP Normal [facility] Comment on above: Result Comment: RE-O RDERING Performed By: #### L [id number] ####[facility] [address] [facility] [phone] Pulmonary Visit Reporton Pulmonary Visit Report [facility] [place] [address] [facility]. [address] [place], [place] [address] OFFICE VISIT Date of Service: 06/09/24 MR#: [id number] Acct: [id number] Name: PATRICE VERGARA Rep #: [id number] : 1950 Provider: Marisel Burt NP Age/Sex: 73/M Location: [facility] [place] [place].PMW Status: Signed Assessment and Plan Assessment and Plan (1) Pulmonary fibrosis: Status: Acute Plan: The patient has not started with Ofev yet. He wanted to complete the valve replacement first. I still recommend that he begin this medication as there is a progressive UIP pattern identified on the CT scan when compared to the CTA from 2014. There is peripheral honeycombing and traction bronchiectasis present. It is confirmed with a significant reduction in the DLCO when comparing the PFT to 2014. There was a PFT from April 2023 which shows a similar DLCO. I once again discussed with the patient that antifibrotic's may be able to slow down further disease process but is not able to reverse the current fibrosis that has been identified. I have previously ordered lab work for the ILD workup to evaluate for secondary fibrosing NSIP patterns, there is isolated atypical p- ANCA elevation. Due to patient following with rheumatology next week I plan to have the lab work forwarded to forest ranger technician. The patient understands that LFT monitoring is required monthly for the first 3 months and then every 3 months thereafter. I have reviewed the use and potential side effects of Ofev with patient. Prescription was previously sent to [place], my nurse will call today to see when the patient will be able to begin the medication medication.I have recommended follow-up in 3 months. (2) Shortness of breath on exertion: Status: Chronic Plan: Likely from the aortic valve as now his shortness of breath has dramatically improved. I have explained how progressive pulmonary fibrosis can worsen shortness of breath and the rationale for beginning antifibrotic now. (3) Smoking greater than 20 pack years: Status: Chronic Comment: smoking daily Plan: Complete marijuana smoking cessation is recommended. I will consider further imaging on follow up. (4) Obstructive sleep apnea: Status: Chronic Plan: He is using and benefiting from Pap therapy. Apnea is well-controlled despite air leak. Continue with compliant use of PAP therapy. No need for retitration study today. Contact the office for any new or worsening symptoms in the meantime. (5) Chronic obstructive lung disease: Status: Chronic Plan: COPD is currently stable, mild obstruction seen on recent PFT. The patient is not exacerbating today. There is no need for oral prednisone and antibiotic therapy at this time. I have recommended that he continue with use of Sprivia at this time. Use albuterol 2 inhalations up to 4 times daily as needed. The patient is to notify this practice if he has worsening respiratory symptoms. Plan Details Follow Up: 3 Months (LMR) HPI HPI Comments Details: Patient is a 73 year old male who presents to the office today for follow-up of recent testing. He has a history of COPD with obstructive sleep apnea. He is ambulatory and currently on room air. He is accompanied today by his daughter. He has not recently been seen in the ED or urgent care for any respiratory illness. He has not required any antibiotics or prednisone for any breathing problems. He is utilizing Spiriva. He has not recently used his albuterol rescue inhaler. He is not smoking cigarettes, if you recall, he quit smoking cigarettes in the year 1999. However, he is using marijuana daily. He smokes at least once daily. The patient is using BiPAP without significant snore. There are no concerns about the air pressure. He reports that he has felt rested. The patient is reporting good compliance. He denies morning headaches. He is not having excessive nocturia. He admits to dry mouth. He does power nap in the afternoon. he is not having excessive nocturia. The patient does not feel an air leak. The patient reports that he has had his daughter who is a respiratory therapist work with his mask for the fit. ESS is 7. He underwent aortic valve replacement on Apr 26 and reports that he can breathe now! He indicates that he can shovel snow and split firewood without difficulty. He reports no shortness of breath whatsoever. He denies wheeze. He denies chest pain and chest tightness. He denies cough. He denies fever, chills, body aches. PFT from March 10, 2024 which shows irreversible mild large airway obstructive ventilatory defect with preserved lung volumes and asymmetric severe reduction in diffusion capacity. 6-minute walk test shows no indication for the use of supplemental oxygen at this time. LDCT from March 25, 2024 shows underlying emphysema with bleb formation throughout both lung torres (more content not included)... Normal [facility] Anion gap in Serum or Plasma Ordered By: MARIETTA BANUELOS on 06-04-2024 Anion gap [Moles/Vol] 8 mmol/L 08-05 [facility] BUN/creatinine ratioOrdered By: MARIETTA BANUELOS on 06-04-2024 Urea nitrogen/Creatinine [Mass ratio] 8.0 mg/mg Low 01-10 [facility] Basic Metabolic Profile (BMP )on 06-04-2024 BUN/CRE 8.0 RATIO Low 01-10 [facility] Comment on above: Performed By: #### L 500.2500, L100.0500 ####[facility] [address] [place], [address] GAP 8 Normal 08-05 [facility] Comment on above: Performed By: #### L 500.2500, L100.0500 ####[facility] [address] [place], [address] CBC-Complete Blood Cnt No Di ffon 06-04-2024 Erythrocyte distribution width (RBC) [Ratio] 14.9 % High 11.6-14.6 [facility] Comment on above: Performed By: #### L 500.2500, L100.0500 ####[facility] [address] [place], [address] Hematocrit (Bld) [Volume fraction] 39.9 % Low 40-54 [facility] Comment on above: Performed By: #### L 500.2500, L100.0500 ####[facility] [address] [place], [address] Hemoglobin (Bld) [Mass/Vol] 12.9 g/dL Low 13.0-16.5 [facility] Comment on above: Performed By: #### L 500.2500, L100.0500 ####[facility] [address] [place], [address] MCH (RBC) [Entitic mass] 29.9 pg Normal 27.0-32.0 [facility] Comment on above: Performed By: #### L 500.2500, L100.0500 ####[facility] [address] [place], [address] MCHC (RBC) [Mass/Vol] 32.3 g/dL Normal 32-36 [facility] Comment on above: Performed By: #### L 500.2500, L100.0500 ####[facility] [address] [place], [address] MCV (RBC) [Entitic vol] 92.4 fL Normal 80-94 [facility] Comment on above: Performed By: #### L 500.2500, L100.0500 ####[facility] [address] [place], [address] Platelet mean volume (Bld) [Entitic vol] 9.5 fL Normal 6.2-12.0 [facility] Comment on above: Performed By: #### L 500.2500, L100.0500 ####[facility] [address] [place], [address] Platelets (Bld) [#/Vol] 148 10*3/uL Low 150-450 [facility] Comment on above: Performed By: #### L 500.2500, L100.0500 ####[facility] [address] [place], [address] RBC (Bld) [#/Vol] 4.32 10*6/uL Low 4.6-6.2 [facility] Comment on above: Performed By: #### L 500.2500, L100.0500 ####[facility] [address] [place], [address] RDW SD 50.6 fl High 35.1-43.9 [facility] Comment on above: Performed By: #### L 500.2500, L100.0500 ####[facility] [address] [place], [address] WBC (Bld) [#/Vol] 8.7 10*3/uL Normal 4.4-11.0 [facility] Comment on above: Performed By: #### L 500.2500, L100.0500 ####[facility] [address] [place], [address] Carbon dioxide, total [Moles /volume] in Central venous bloodOrdered By: MARIETTA BANUELOS on 06-04-2024 CO2 [Moles/Vol] 25.5 mmol/L 21.0-32.0 [facility] Comment on above: Performed By: #### L 500.2500, L100.0500 ####[facility] [address] [place], [address] Chloride assayOrdered By: ME YOGI BANUELOS on 06-04-2024 Chloride [Moles/Vol] 100 mmol/L 98-108 [facility] Comment on above: Performed By: #### L 500.2500, L100.0500 ####[facility] [address] [place], [address] Erythrocyte distribution wid th ratioOrdered By: MARIETTA BANUELOS on 06-04-2024 Erythrocyte distribution width (RBC) [Ratio] 14.9 % High 11.6-14.6 [facility] Erythrocyte distribution wid th standard deviationOrdered By: MARIETTA BANUELOS on 06-04-2024 Erythrocyte distribution width (RBC) [Entitic vol] 50.6 fL High 35.1-43.9 [facility] Erythrocyte distribution width (RBC) [Ratio] 50.6 fl High 35.1-43.9 [facility] GFR/1.73 sq M.predicted myla g non-blacks MDRD (S/P/Bld) [Vol rate/Area]Ordered By: MARIETTA BANUELOS on 06-04-2024 Estimated GFR (MDRD) Non-Af Amer 81 >60 [facility] Comment on above: mL/min/1.73m2 CKD-EP I Creatinine Equation (2020) Glomerular filtration rate ( GFR) estimation/1.73 sq m using serum, plasma, or whole bOrdered By: MARIETTA BANUELOS on 06-04-2024 GFR/1.73 sq M.predicted among non-blacks MDRD (S/P/Bld) [Vol rate/Area] 81 mL/min/{1.73_m2} >60 [facility] Comment on above: mL/min/1.73m2 CKD-EP I Creatinine Equation (2020) Result Comment: mL/m in/1.73m2 CKD-EPI Creatinine Equation (2020) Performed By: #### L 500.2500, L100.0500 ####[facility] [address] [place], [address] Hematocrit Auto (Bld) [Volum e fraction]Ordered By: MARIETTA BANUELOS on 06-04-2024 Hematocrit (Bld) [Volume fraction] 39.9 % Low 40-54 [facility] Hemoglobin measurementOrdere d By: MARIETTA BANUELOS on 06-04-2024 Hemoglobin (Bld) [Mass/Vol] 12.9 g/dL Low 13.0-16.5 [facility] MCV (mean corpuscular volume ) determinationOrdered By: MARIETTA BANUELOS on 06-04-2024 MCV (RBC) [Entitic vol] 92.4 fL 80-94 [facility] Mean corpuscular hemoglobin (MCH) determinationOrdered By: MARIETTA BANUELOS on 06-04-2024 MCH (RBC) [Entitic mass] 29.9 pg 27.0-32.0 [facility] Mean corpuscular hemoglobin concentration (MCHC) determinationOrdered By: MARIETTA BANUELOS on 06-04-2024 MCHC (RBC) [Mass/Vol] 32.3 g/dL 32-36 [facility] Mean platelet volume determi nationOrdered By: MARIETTA BANEULOS on 06-04-2024 Platelet mean volume (Bld) [Entitic vol] 9.5 fL 6.2-12.0 [facility] Platelet countOrdered By: ME YOGI BANUELOS on 06-04-2024 Platelets (Bld) [#/Vol] 148 10*3/uL Low 150-450 [facility] Potassium measurement (mass/ volume)Ordered By: MARIETTA BANUELOS on 06-04-2024 Potassium (Unsp spec) [Mass/Vol] 4.6 mmol/L 3.3-5.1 [facility] Potassium [Moles/Vol] 4.6 mmol/L Normal 3.3-5.1 [facility] Comment on above: Performed By: #### L 500.2500, L100.0500 ####[facility] [address] [place], [address] RBC Auto (Bld) [#/Vol]Ordere d By: MARIETTA BANUELOS on 06-04-2024 RBC (Bld) [#/Vol] 4.32 10*6/uL Low 4.6-6.2 [facility] Serum creatinine measurement (mass/volume)Ordered By: MARIETTA BANUELOS on 06-04-2024 Creatinine [Mass/Vol] 0.98 mg/dL 0.70-1.20 [facility] Comment on above: Performed By: #### L 500.2500, L100.0500 ####[facility] [address] [place], [address] Serum glucose measurement (m ass/volume)Ordered By: MARIETTA BANUELOS on 06-04-2024 Glucose [Mass/Vol] 87 mg/dL 70-99 [facility] Comment on above: Performed By: #### L 500.2500, L100.0500 ####[facility] [address] [place], [address] Serum or plasma calcium scottie urement (mass/volume)Ordered By: MARIETTA BANUELOS on 06-04-2024 Calcium [Mass/Vol] 9.1 mg/dL 7.6-11.0 [facility] Comment on above: Performed By: #### L 500.2500, L100.0500 ####[facility] [address] [place] [place], [address] Serum or plasma urea nitroge n measurement (mass/volume)Ordered By: MARIETTA BANUELOS on 06-04-2024 Urea nitrogen [Mass/Vol] 8 mg/dL 4-19 [facility] Comment on above: Performed By: #### L 500.2500, L100.0500 ####[facility] [address] [place], [address] Sodium levelOrdered By: PEYTON BANUELOS on 06-04-2024 Sodium [Moles/Vol] 134 mmol/L 133-145 [facility] Comment on above: Performed By: #### L 500.2500, L100.0500 ####[facility] [address] [place], [address] White blood cell (WBC) count Ordered By: MARIETTA BANUELOS on 06-04-2024 WBC (Bld) [#/Vol] 8.7 10*3/uL 4.4-11.0 [facility] Office Visiton 06-03-2024 Follow-up visit [id number] Jorge Alberto Vergara 1950 M Date Provider Department Center 06/03/2024 14623-HXLUMARIETTA PANG SH[facility] VIRGILIO SHMGCV [address] Family History Problem Relation Age of Onset Diabetes Mother Hypertension Mother Coronary artery disease Mother Breast cancer Sister Diabetes Sister Diabetes Brother Cardiomyopathy Brother Coronary artery disease Brother Family Status - Relation Status Age at Mother Sister Brother Level of Service:95860 AL OFFICE/OUTPATIENT ESTABLISHED MOD MDM 30 MIN Reason for Visit and Comments: 1 Month Follow Up [[id number]] - S/p TAVR Normal [facility] Progress Noteon 06-03-2024 Progress Note Participating in Cardiac Rehab Normal [facility] Progress Note [facility] - [address] [address] Dept: [phone] Dept Loc: [phone] Reason for Visit: 1 Month Follow Up (S/p TAVR) Assessment and Plan 1. Severe aortic stenosis Assessment & Plan: S/p femoral TAVR with 26 mm Smita S3 on 04/26/24 -stable, NYHA Class II -continue DAPT -one month echo today -lifelong SBE prophylaxis Orders: - ECG 12 lead - CLINIC PERFORMED - Basic metabolic panel - CBC 2. S/P TAVR (transcatheter aortic valve replacement) Assessment & Plan: Participating in Cardiac Rehab Orders: - ECG 12 lead - CLINIC PERFORMED 3. Coronary artery disease involving [place] coronary artery of [place] heart without angina pectoris Assessment & Plan: Hx LCx stent in 2011 with stable non-obstructive CAD on most recent cath -no angina -continue isosorbide, carvedilol and high intensity statin -continue DAPT 4. Essential hypertension Assessment & Plan: Well controlled. Tolerating current doses of amlodipine, carvedilol Follow up for Dr. Bullock as scheduled. [facility] in one year with echo. Subjective HPI Patrice Vergara is a 73 yo male known to Dr. Bullock with a history of aortic stenosis, HTN, HLD, pulmonary fibrosis, HEATHER on CPAP and CAD with PCI to LCx in 2011. Echo showed preserved EF with mean Ao gradient 34 mmHg, peak velocity 3.9 and SHEKHAR 0.9 cm2. Heart cath showed non-obstructive CAD with plan for medical management. He underwent femoral TAVR on 04/26/24 with a 26 mm Smita S3 valve. He did well post procedure and was discharged home the following day. Post procedure echo showed EF 69% with aortic mean gradient 11 mmHg. He presents today for a one month s/p TAVR follow up accompanied by his daughter. He reports feeling well with no SOB, orthopnea, angina, dizziness or edema. He has started Cardiac Rehab and has resumed normal activities at home. Weight is up 6 lbs in one month. He feels this is due to inactivity. No evidence of volume overload on exam. Has a new diagnosis of RA and is scheduled to see rheumatology. Review of Systems Constitutional: Negative for chills and fever. Respiratory: Negative for cough and shortness of breath. Cardiovascular: Negative for chest pain, palpitations and leg swelling. Gastrointestinal: Negative for abdominal pain, blood in stool and vomiting. Genitourinary: Negative for hematuria. Neurological: Positive for numbness (right leg, chronic, unchanged). Negative for dizziness and syncope. Allergies Allergen Reactions Codeine Shortness of breath Lisinopril Shortness of breath Outpatient Medications Prior to Visit Medication Sig Dispense Refill amLODIPine (Norvasc) 5 MG tablet Take 5 mg by mouth daily. aspirin 81 MG EC tablet Take 81 mg by mouth daily. atorvastatin (Lipitor) 40 MG tablet Take 40 mg by mouth daily. carvedilol (Coreg) 25 MG tablet Take 12.5 mg by mouth 2 times daily (with meals). clopidogrel (Plavix) 75 MG tablet Take 75 mg by mouth daily. gabapentin (Neurontin) 400 MG capsule Take 800 mg by mouth 2 times daily. isosorbide mononitrate ER (Imdur) 30 MG 24 hr tablet Take 30 mg by mouth daily. nitroglycerin (Nitrostat) 0.[address] 0.4 mg under the tongue every 5 minutes as needed for chest pain. omeprazole (PriLOSEC) [address] capsule Take 40 mg by mouth every morning (before breakfast). Spiriva Respimat 2.5 MCG/ACT inhaler Inhale 2 puffs daily. traMADol (Ultram) 50 MG tablet Take 50 mg by mouth every 6 hours as needed. aspirin 325 MG tablet Take 325 mg by mouth daily. (Patient not taking: Reported on 06/03/2024) No facility-administered medications prior to visit. Past Medical History: Diagnosis Date Aortic stenosis COPD (chronic obstructive pulmonary disease) (HCC) Coronary artery disease Diverticulitis Fibromyalgia GERD (gastroesophageal reflux disease) Heart valve disease Hyperlipidemia Hypertension Neuropathy Pulmonary fibrosis (HCC) Renal artery stenosis (HCC) Restless leg syndrome Sleep apnea wears CPAP Social History Tobacco Use Smoking status: Former Types: Cigarettes Smokeless tobacco: Never Substance Use Topics Alcohol use: Not Currently Past Surgical History: Procedure Laterality Date BACK SURGERY 05/2023 CARDIAC CATHETERIZATION N/A 04/08/2024 Performed by Galo Koo MD at [facility] Cardiac Cath/EP Lab CARDIAC CATHETERIZATION N/A 04/08/2024 Performed by Galo Koo MD at [facility] Cardiac Cath/EP Lab CARDIAC CATHETERIZATION N/A 04/26/2024 Performed by Galo Koo MD at [facility] OR CORONARY STENT PLACEMENT 03/2011 [facility] circumflex RENAL ARTERY STENT 03/2011 Dr. Chilel Family History Problem Relation Name Age of Onset Diabetes Mother Hypertension Mother Coronary artery disease Mother Breast cancer Sister Diabetes Sister Diabetes Brother Cardiomyopathy Brother Coronary artery disease Brother Objective Vitals (more content not included)... Normal [facility] Progress Note Well controlled. Tolerating current doses of amlodipine, carvedilol Normal [facility] Progress Note Hx LCx stent in 2011 with stable non-obstructive CAD on most recent cath -no angina -continue isosorbide, carvedilol and high intensity statin -continue DAPT Normal [facility] Progress Note S/p femoral TAVR wit h 26 mm Smita S3 on 04/26/24 -stable, NYHA Class II -continue DAPT -one month echo today -lifelong SBE prophylaxis Normal [facility] US Heart TransthoracicOrdere d By: Mahesh Maravilla on 06-03-2024 Ao Root Index 1.36 cm/m2 [facility] Work Phone: Aortic Arch 3.6 cm [facility] Work Phone: Aortic Root 2.7 cm [facility] Work Phone: Aortic Sinus Valsalva 2.7 cm [facility] [employer] Work Phone: Aortic Sinus Valsalva Index 1.36 cm/m2 [facility] Work Phone: Aortic valve Mean systole pressure gradient by US.doppler derived full Bernoulli 10 mmHg [facility] Work Phone: Aortic valve Orifice area by US 2.5 cm2 [facility] Work Phone: Aortic valve Peak systolic flow by US.doppler 1.5 m/s [facility] Work Phone: Ascending Aorta 3.9 cm [facility] Work Phone: Ascending Aorta Index 1.97 cm/m2 [facility] [employer] Work Phone: AV Area by Peak Velocity 1.4 cm2 [facility] Work Phone: AV Area by VTI 1.2 cm2 [facility] Work Phone: AV AT 64.7 ms [facility] Work Phone: AV Peak Gradient 21 mmHg [facility] Work Phone: AV Peak Velocity 2.3 m/s [facility] Work Phone: AV Velocity [facility].57 [facility] Work Phone: AV VTI 61.5 cm [facility] Work Phone: SHEKHAR/BSA Peak Velocity 0.7 cm2/m2 [facility] [employer] Work Phone: SHEKHAR/BSA VTI 0.6 cm2/m2 [facility] [employer] Work Phone: E/E' Lateral 12.89 [facility] [employer] Work Phone: E/E' Ratio (Averaged) 12.24 [facility] [employer] Work Phone: E/E' Septal 11.6 [facility] [employer] Work Phone: Fractional Shortening 2D 29 % 28 - 44 % [facility] [employer] Work Phone: Interpretation and review of laboratory results Abnormal [facility] [employer] Work Phone: IVC Diameter 1.7 cm [facility] [employer] Work Phone: IVSd 0.6 cm 0.6 - 1.0 cm [facility] [employer] Work Phone: LA Volume 2C 72 mL Abnormal 18 - 58 mL [facility] [employer] Work Phone: LA Volume 4C 67 mL Abnormal 18 - 58 mL [facility] [employer] Work Phone: LA Volume A/L 76 mL [facility] Work Phone: LA Volume BP 71 mL Abnormal 18 - 58 mL [facility] [employer] Work Phone: LA Volume Index 2C 36 mL/m2 Abnormal 16 - 34 mL/m2 [facility] [employer] Work Phone: LA Volume Index 4C 34 mL/m2 16 - 34 mL/m2 [facility] [employer] Work Phone: LA Volume Index A/L 38 mL/m2 16 - 34 mL/m2 [facility] [employer] Work Phone: LA Volume Index BP 36 ml/m2 Abnormal 16 - 34 ml/m2 [facility] [employer] Work Phone: Left ventricular Ejection fraction by US.2D+Calculated by biplane method of disks 69 % 55 - 100 % [facility] Work Phone: LV E' Lateral Velocity 9 cm/s [facility] [employer] Work Phone: LV E' Septal Velocity 10 cm/s [facility] Work Phone: LV EDV A2C 93 mL [facility] Work Phone: LV EDV A4C 90 mL [facility] Work Phone: LV EDV BP 95 mL 67 - 155 mL [facility] Work Phone: LV EDV Index A2C 47 mL/m2 [facility] Work Phone: LV EDV Index A4C 45 mL/m2 [facility] Work Phone: LV EDV Index BP 48 mL/m2 [facility] Work Phone: LV Ejection Fraction A2C 68 % [facility] Work Phone: LV Ejection Fraction A4C 68 % [facility] Work Phone: LV ESV A2C 30 mL [facility] Work Phone: LV ESV A4C 29 mL [facility] Work Phone: LV ESV BP 30 mL 22 - 58 mL [facility] Work Phone: LV ESV Index A2C 15 mL/m2 [facility] Work Phone: LV ESV Index A4C 15 mL/m2 [facility] Work Phone: LV ESV Index BP 15 mL/m2 [facility] Work Phone: LV Mass 2D 67.1 g Abnormal 88 - 224 g [facility] Work Phone: LV Mass 2D Index 33.9 g/m2 Abnormal 49 - 115 g/m2 [facility] Work Phone: LV RWT Ratio 0.29 [facility] Work Phone: LVIDd 4.1 cm Abnormal 4.2 - 5.9 cm [facility] Work Phone: LVIDd Index 2.07 cm/m2 [facility] Work Phone: LVIDs 2.9 cm [facility] Work Phone: LVIDs Index 1.46 cm/m2 [facility] Work Phone: LVOT Cardiac Output 4 liter/minute [facility] Work Phone: LVOT Diameter 1.8 cm [facility] Work Phone: LVOT Mean Gradient 3 mmHg [facility] Work Phone: LVOT Peak Gradient 7 mmHg [facility] Work Phone: LVOT Peak Velocity 1.3 m/s [facility] Work Phone: LVOT Stroke Volume Index 39.8 mL/m2 [facility] Work Phone: LVOT SV 78.8 ml [facility] Work Phone: LVOT VTI 31 cm [facility] [employer] Work Phone: LVOT:AV VTI Index 0.5 [facility] e[facility] Work Phone: LVPWd 0.6 cm 0.6 - 1.0 cm [facility] [employer] Work Phone: MR VTI 238.2 cm [facility] Work Phone: MV A Velocity 1.23 m/s [facility] Work Phone: MV E Velocity 1.16 m/s [facility] Work Phone: MV E Wave Deceleration Time 232 ms [facility] Work Phone: MV E/A 0.94 [facility] Work Phone: MV Nyquist Velocity 36 cm/s [facility] Work Phone: MV Regurg Velocity PISA 6.5 m/s [facility] [employer] Work Phone: Pulmonary Artery EDP 7 mmHg [facility] Work Phone: RA Area 4C 31.5 mL [facility] Work Phone: RA Area 4C 31.4 mL [facility] Work Phone: RV Basal Dimension 3.3 cm [facility] Work Phone: RV Free Wall Peak S' 14 cm/s [facility] Work Phone: RV Longitudinal Dimension 8 cm [facility] Work Phone: RV Mid Dimension 2.2 cm [facility] Work Phone: TAPSE 2.1 cm 1.7 cm [facility] Work Phone: TR Max Velocity 2.74 m/s [facility] Work Phone: TR Peak Gradient 30 mmHg [facility] Work Phone: [facility] Work Phone: Heart Transthoracicon Left Ventricle: Left ventricle size is normal. Normal wall thickness. Normal left ventricular systolic function. EF by 2D Simpsons Biplane is 69%. Normal wall motion. Right Ventricle: Right ventricle size is normal. Normal systolic function. Left Atrium: Left atrium is dilated. Aorta: Normal sized sinuses of Valsalva. Mildly dilated ascending aorta. Ao ascending diameter is 3.9 cm. Mildly dilated aortic arch. Ao arch diameter is 3.6 cm. Aortic Valve: Silverman Smita 3 Ultra jnlay-ry-loiod transcatheter bioprosthetic aortic valve. AV mean gradient is 10 mmHg. No cusp thickening. No cusp calcification. No regurgitation. Trace paravalvular regurgitation. No stenosis. AV peak gradient is 21 mmHg. AV area by continuity VTI is 1.2 cm2. Left Ventricle Left ventricle size is normal. Normal wall thickness. Normal left ventricular systolic function. EF by 2D Simpsons Biplane is 69%. Normal wall motion. Right Ventricle Right ventricle size is normal. Normal systolic function. Left Atrium Left atrium is dilated. Right Atrium Right atrium size is normal. IVC/SVC IVC diameter is normal and decreases greater than 50% during inspiration; therefore the estimated right atrial pressure is normal (~3 mmHg). Mitral Valve Valve structure is normal. Mild to moderate (1-2+) regurgitation. No stenosis noted. Tricuspid Valve Valve structure is normal. Mild to moderate (1-2+) regurgitation. Aortic Valve Silverman Smita 3 Ultra pfbae-ro-vxbfo transcatheter bioprosthetic aortic valve. AV mean gradient is 10 mmHg. No cusp thickening. No cusp calcification. No regurgitation. Trace paravalvular regurgitation. No stenosis. AV peak gradient is 21 mmHg. AV area by continuity VTI is 1.2 cm2. Pulmonic Valve Valve structure is normal. Trace regurgitation. Ascending Aorta Normal sized sinuses of Valsalva. Mildly dilated ascending aorta. Ao ascending diameter is 3.9 cm. Mildly dilated aortic arch. Ao arch diameter is 3.6 cm. Pericardium No pericardial effusion. Septum No interatrial shunt visualized on color Doppler. Study Details Image quality: fair. Blood pressure: 136/72 mmHg. The underlying ECG rhythm was sinus rhythm. Echo performed in conjunction with TAVR procedure. No contrast was given. CV [facility] CR - History AND Physicalon 06-01-2024 CR - History & Physical [facility] [address]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 MCG/ACT inhaler Inhale 2 puffs daily. traMADol (Ultram) 50 MG tablet Take 50 mg by mouth every 6 hours as needed. No facility-administered medications prior to visit. Past Medical History: Diagnosis Date Aortic stenosis COPD (chronic obstructive pulmonary disease) (HCC) Coronary artery disease Diverticulitis Fibromyalgia GERD (gastroesophageal reflux disease) Heart valve disease Hyperlipidemia Hypertension Neuropathy Pulmonary fibrosis (HCC) Renal artery stenosis (HCC) Restless leg syndrome Sleep apnea wears CPAP Social History Tobacco Use Smoking status: Former Types: Cigarettes Smokeless tobacco: Never Substance Use Topics Alcohol use: Not Currently Past Surgical History: Procedure Laterality Date BACK SURGERY 05/2023 CARDIAC CATHETERIZATION N/A 04/08/2024 Performed by Galo Koo MD at [facility] Cardiac Cath/EP Lab CARDIAC CATHETERIZATION N/A 04/08/2024 Performed by Galo Koo MD at [facility] Cardiac Cath/EP Lab CARDIAC CATHETERIZATION N/A 04/26/2024 Performed by Galo Koo MD at [facility] OR CORONARY STENT PLACEMENT 03/2011 [facility] circumflex RENAL ARTERY STENT 03/2011 Dr. Chilel Family History Problem Relation Name Age of Onset Diabetes Mother Hypertension Mother Coronary artery disease Mother Breast cancer Sister Diabetes Sister Diab (more content not included)... Normal [facility] ECG 12-LEADon 04-28-2024 ECG 12-LEAD IMPRESSION: Sinus rhythm Electronically Signed On 04-28-2024 10:25:55 EST by Frank Combs Normal [facility] 30on 04-27-2024 30 Problem: Pain - Adul t Goal: Verbalizes/displays adequate comfort level or baseline comfort level Outcome: Adequate for Discharge Flowsheets (Taken 04/27/2024 0800) Verbalizes/displays adequate comfort level or baseline comfort level: Encourage patient to monitor pain and request assistance Assess pain using appropriate pain scale Administer analgesics based on type and severity of pain and evaluate response Implement non-pharmacological measures as appropriate and evaluate response Consider cultural and social influences on pain and pain management Notify Licensed Independent Practitioner if interventions unsuccessful or patient reports new pain Problem: Safety - Adult Goal: Free from fall injury Outcome: Adequate for Discharge Flowsheets (Taken 04/27/2024 0800) Free from fall injury: Instruct family/caregiver on patient safety Based on caregiver fall risk screen, instruct family/caregiver to ask for assistance with transferring infant if caregiver noted to have fall risk factors Problem: Discharge Planning Goal: Discharge to home or other facility with appropriate resources Outcome: Adequate for Discharge Problem: Chronic Conditions and Co-morbidities Goal: Patient's chronic conditions and co-morbidity symptoms are monitored and maintained or improved Outcome: Adequate for Discharge Normal [facility] BASIC METABOLIC PANELon Anion gap [Moles/Vol] 7 mmol/L Normal 3-13 [facility] Comment on above: Performed By: #### L [id number] ####Almond Grinder: KECIA TOPETE ([id number])[facility] ([facility])[address] [place] [address] Calcium [Mass/Vol] 9.3 mg/dL Normal 8.8-10.0 [facility] Comment on above: Performed By: #### L [id number] ####Almond Grinder: KECIA TOPETE ([id number])[facility] ([facility])[address] [place] [address] Chloride [Moles/Vol] 105 mmol/L Normal 98-107 [facility] Comment on above: Performed By: #### L AB15 ####Almond Grinder: KECIA TOPETE ([id number])[facility])[address] [place] [address] CO2 [Moles/Vol] 21 mmol/L Low 23-31 [facility] Comment on above: Performed By: #### L AB15 ####Almond Grinder: KECIA TOPETE ([id number])[facility])[address] [place] [address] Creatinine [Mass/Vol] 0.95 mg/dL Normal 0.72-1.25 [facility] Comment on above: Performed By: #### L [id number] ####Almond Grinder: KECIA TOPETE ([id number])[facility] ([facility])[address] [place] [address] GLOMERULAR FILTRATION RATE ML/MIN/1.73 SQ M.PREDICTED 84.0 mL/min/1.73m*2 Normal >60.0 [facility] Comment on above: Result Comment: Calc ulation based on the Chronic Kidney Disease Epidemiology Collaboration (CKD-EPI) equation refit without adjustment for race Performed By: #### L [id number] ####Almond Grinder: KECIA TOPETE ([id number])[facility])[address] [place] [address] Glucose [Mass/Vol] 106 mg/dL Normal 82-115 [facility] Comment on above: Performed By: #### L AB15 ####Almond Grinder: KECIA TOPETE ([id number])[facility])[address] [place] [address] Potassium [Moles/Vol] 4.4 mmol/L Normal 3.5-5.1 [facility] Comment on above: Result Comment: [facility] potassium values may be up to 0.5 mmol/L lower than serum values. Performed By: #### L AB15 ####Almond Grinder: KECIA TOPETE ([id number])[facility] ([facility])[address] [place] [address] Sodium [Moles/Vol] 133 mmol/L Low 136-145 [facility] Comment on above: Performed By: #### L AB15 ####Almond Grinder: KECIA TOPETE ([id number])[facility] ([facility])[address] [place] [address] Urea nitrogen [Mass/Vol] 8 mg/dL Low 9-23 [facility] Comment on above: Performed By: #### L AB15 ####Almond Grinder: KECIA TOPETE ([id number])[facility] ([facility])[address] [place] [address] Basic metabolic 1998 panelon 04-27-2024 Anion gap [Moles/Vol] 7 mmol/L 3 - 13 mmol/L [facility] Calcium [Mass/Vol] 9.3 mg/dL 8.8 - 10. 0 mg/dL [facility] Chloride [Moles/Vol] 105 mmol/L 98 - 10 7 mmol/L [facility] CO2 [Moles/Vol] 21 mmol/L Low 23 - 31 mmol/L [facility] Creatinine [Mass/Vol] 0.95 mg/dL 0.72 - 1.25 mg/dL [facility] GFR/1.73 sq M.predicted (S/P/Bld) [Vol rate/Area] 84 mL/min - PINF [facility] Comment on above: Calculation based on the Chronic Kidney Disease Epidemiology Collaboration (CKD-EPI) equation refit without adjustment for race Glucose [Mass/Vol] 106 mg/dL 82 - 115 mg/dL [facility] Interpretation and review of laboratory results Abnormal [facility] Potassium [Moles/Vol] 4.4 mmol/L 3.5 - 5.1 mmol/L [facility] Comment on above: Plasma potassium jose ues may be up to 0.5 mmol/L lower than serum values. Sodium [Moles/Vol] 133 mmol/L Low 136 - 145 mmol/L [facility] Urea nitrogen [Mass/Vol] 8 mg/dL Low 9 - 23 mg/dL [facility] CBC (HEMOGRAM)on 04-27-2024 Erythrocyte distribution width (RBC) [Ratio] 14.3 % Normal 11.5-15.0 [facility] Comment on above: Performed By: #### L [id number] #### Almond Grinder: KECIA TOPETE ([id number]) [facility]) [address] [place] [address] Hematocrit (Bld) [Volume fraction] 45.6 % Normal 40.0-52.0 [facility] Comment on above: Performed By: #### L [id number] #### Almond Grinder: KECIA TOPETE ([id number]) [facility]) [address] [place] [address] Hemoglobin (Bld) [Mass/Vol] 15.5 g/dL Normal 13.0-18.0 [facility] Comment on above: Performed By: #### L [id number] #### Almond Grinder: KECIA TOPETE ([id number]) [facility]) [address] [place] [address] MCH (RBC) [Entitic mass] 29.8 pg Normal 26.0-34.0 [facility] Comment on above: Performed By: #### L [id number] #### Almond Grinder: KECIA TOPETE ([id number]) [facility]) [address] [place] [address] MCHC 34.0 % Normal 30.5-36.0 [facility] Comment on above: Performed By: #### L [id number] #### Almond Grinder: KECIA TOPETE ([id number]) [facility]) [address] [place] [address] MCV (RBC) [Entitic vol] 87.7 fL Normal 77.0-99.0 [facility] Comment on above: Performed By: #### L [id number] #### Almond Grinder: KECIA TOPETE ([id number]) [facility]) [address] [place] [address] Platelet mean volume (Bld) [Entitic vol] 9.6 fL Normal 9.0-12.7 [facility] Comment on above: Performed By: #### L [id number] #### Almond Grinder: KECIA TOPETE ([id number]) [facility] ([facility]) [address] [place] [address] Platelets (Bld) [#/Vol] 163 10*3/uL Normal 140-440 [facility] Comment on above: Performed By: #### L [id number] #### Almond Grinder: KECIA TOPETE ([id number]) [facility] ([facility]) [address] [place] [address] RBC (Bld) [#/Vol] 5.20 10*6/uL Normal 4.40-5.90 [facility] Comment on above: Performed By: #### L [id number] #### Almond Grinder: KECIA TOPETE ([id number]) [facility] ([facility]) [address] [place] [address] WBC (Bld) [#/Vol] 15.2 10*3/uL High 3.6-10.7 [facility] Comment on above: Performed By: #### L [id number] #### Almond Grinder: KECIA TOPETE ([id number]) [facility] ([facility]) [address] [place] [address] CBC panel Auto (Bld)Ordered By: Sudheer Stone on 04-27-2024 Erythrocyte distribution width (RBC) [Ratio] 14.3 % 11.5 - 15.0 % [facility] Hematocrit (Bld) [Volume fraction] 45.6 % 40.0 - 52.0 % [facility] Hemoglobin (Bld) [Mass/Vol] 15.5 g/dL 13.0 - 18.0 g/dL [facility] Interpretation and review of laboratory results Abnormal [facility] MCH (RBC) [Entitic mass] 29.8 pg 26.0 - 34.0 pg [facility] MCHC (RBC) [Mass/Vol] 34 % 30.5 - 36.0 % [facility] MCV (RBC) [Entitic vol] 87.7 fL 77.0 - 99.0 fL [facility] Platelet mean volume (Bld) [Entitic vol] 9.6 fL 9.0 - 12.7 fL [facility] Platelets (Bld) [#/Vol] 163 10*3/uL 140 - 440 10*3/uL [facility] [employer] RBC (Bld) [#/Vol] 5.2 10*6/uL 4.40 - 5.9 0 10*6/uL [facility] [employer] WBC (Bld) [#/Vol] 15.2 10*3/uL High 3.6 - 10.7 10*3/uL [facility] ECG 12-LEADon 04-27-2024 ECG 12-LEAD IMPRESSION: Sinus rhythm Normal ECG Electronically Signed On 04-27-2024 11:36:50 EST by Grady [place] Normal [facility] [employer] [facility] No Panel InformationOrdered By: Grady [place] on 04-27-2024 P [place] 34 degrees [facility] [employer] Work Phone: AL Interval 184 ms [facility] [employer] Work Phone: QRS [place] -15 degrees [facility] [employer] Work Phone: QRSD Interval 78 ms [facility] [employer] Work Phone: QT Interval 404 ms [facility] [employer] Work Phone: QTC Interval 415 ms [facility] [employer] Work Phone: T Wave [place] 78 degrees [facility] [employer] Work Phone: [facility] [employer] Work Phone: No Panel Informationon 04-27 Sinus rhythm Normal ECG Electronically Signed On 04-27-2024 11:36:50 EST by Grady [place] CV Grady Watkins MD - 04/27/2024 IMPRESSION: Sinus rhythm Normal ECG Electronically Signed On 04-27-2024 11:36:50 EST by Grady [place] [facility] Heart TransthoracicOrdere d By: Rochelle Landers on 04-27-2024 Ao Root Index 1.46 cm/m2 [facility] [employer] Work Phone: Aortic Root 2.8 cm [facility] [employer] Work Phone: Aortic Sinus Valsalva 2.8 cm [facility] Work Phone: Aortic Sinus Valsalva Index 1.46 cm/m2 [facility] Work Phone: Aortic valve Mean systole pressure gradient by US.doppler derived full Bernoulli 11 mmHg [facility] Work Phone: Aortic valve Orifice area by US 3.1 cm2 [facility] Work Phone: Aortic valve Peak systolic flow by US.doppler 1.5 m/s [facility] Work Phone: [phone] Ascending Aorta 3.8 cm [facility] Work Phone: [phone] Ascending Aorta Index 1.98 cm/m2 [facility] Work Phone: [phone] AV Area by Peak Velocity 2 cm2 [facility] Work Phone: [phone] AV Area by VTI 2 cm2 [facility] Work Phone: [phone] AV AT 95.15 ms [facility] Work Phone: [phone] AV Peak Gradient 19 mmHg [facility] Work Phone: [phone] AV Peak Velocity 2.2 m/s [facility] Work Phone: [phone] AV Velocity Ratio 0.64 [facility] Work Phone: AV VTI 44.9 cm [facility] Work Phone: SHEKHAR/BSA Peak Velocity 1 cm2/m2 [facility] Work Phone: SHEKHAR/BSA VTI 1 cm2/m2 [facility] Work Phone: [phone] Fractional Shortening 2D 39 % 28 - 44 % [facility] Work Phone: Global Longitudinal Strain -17.6 % [facility] Work Phone: [phone] Interpretation and review of laboratory results Abnormal [facility] Work Phone: IVC Diameter 1.6 cm [facility] Work Phone: IVSd 1.1 cm Abnormal 0.6 - 1.0 cm [facility] Work Phone: LA Diameter 2.9 cm [facility] Work Phone: LA Size Index 1.51 cm/m2 [facility] Work Phone: LA Volume 2C 50 mL 18 - 58 mL [facility] Work Phone: [phone] LA Volume 4C 60 mL Abnormal 18 - 58 mL [facility] Work Phone: [phone] LA Volume A/L 62 mL [facility] Work Phone: [phone] LA Volume Index 2C 26 mL/m2 16 - 34 mL/m2 [facility] Work Phone: [phone] LA Volume Index 4C 31 mL/m2 16 - 34 mL/m2 [facility] Work Phone: [phone] LA Volume Index A/L 32 mL/m2 16 - 34 mL/m2 [facility] Work Phone: [phone] LA/AO Root Ratio 1.04 [facility] Work Phone: [phone] Left ventricular Ejection fraction by US.2D+Calculated by biplane method of disks 69 % 55 - 100 % [facility] Work Phone: [phone] LV EDV A2C 63 mL [facility] Work Phone: [phone] LV EDV A4C 79 mL [facility] Work Phone: [phone] LV EDV BP 72 mL 67 - 155 mL [facility] Work Phone: [phone] LV EDV Index A2C 33 mL/m2 [facility] Work Phone: [phone] LV EDV Index A4C 41 mL/m2 [facility] Work Phone: [phone] LV EDV Index BP 38 mL/m2 [facility] Work Phone: [phone] LV Ejection Fraction A2C 68 % [facility] Work Phone: [phone] LV Ejection Fraction A4C 67 % [facility] Work Phone: [phone] LV ESV A2C 20 mL [facility] Work Phone: [phone] LV ESV A4C 26 mL [facility] Work Phone: [phone] LV ESV BP 23 mL 22 - 58 mL [facility] Work Phone: [phone] LV ESV Index A2C 10 mL/m2 [facility] alth Work Phone: [phone] LV ESV Index A4C 14 mL/m2 [facility] alth Work Phone: [phone] LV ESV Index BP 12 mL/m2 [facility]a lth Work Phone: [phone] LV Mass 2D 151.3 g 88 - 224 g [facility] Work Phone: [phone] LV Mass 2D Index 78.8 g/m2 49 - 115 g/m2 [facility] Work Phone: [phone] LV RWT Ratio 0.54 [facility] Work Phone: [phone] LVIDd 4.1 cm Abnormal 4.2 - 5.9 cm [facility] Work Phone: [phone] LVIDd Index 2.14 cm/m2 [facility] Work Phone: [phone] LVIDs 2.5 cm [facility] Work Phone: 1() LVIDs Index 1.3 cm/m2 [facility] Work Phone: 1() LVOT Cardiac Output 5.8 liter/minute [facility] Work Phone: [phone] LVOT Diameter 2 cm [facility] Work Phone: [phone] LVOT Mean Gradient 5 mmHg [facility] Work Phone: [phone] LVOT Peak Gradient 8 mmHg [facility] Work Phone: [phone] LVOT Peak Velocity 1.4 m/s [facility] Work Phone: [phone] LVOT Stroke Volume Index 47.6 mL/m2 [facility] Work Phone: [phone] LVOT SV 91.4 ml [facility] Work Phone: [phone] LVOT VTI 29.1 cm [facility] Work Phone: [phone] LVOT:AV VTI Index 0.65 [facility] ealth Work Phone: [phone] LVPWd 1.1 cm Abnormal 0.6 - 1.0 cm [facility] Work Phone: Pulmonary Artery EDP 4 mmHg [facility] Work Phone: [phone] RA Area 4C 46.8 mL [facility] Work Phone: [phone] RV Basal Dimension 3.2 cm [facility] Work Phone: [phone] RV Mid Dimension 1.4 cm [facility] Work Phone: [phone] Sinotubular Junction 2.5 cm [facility] Work Phone: [phone] TAPSE 1.8 cm 1.7 cm [facility] Work Phone: [phone] TR Max Velocity 2.77 m/s [facility] Work Phone: TR Peak Gradient 31 mmHg [facility] Work Phone: [phone] [facility] Work Phone: US Heart Transthoracicon Left Ventricle: Left ventricle size is normal. Mildly increased wall thickness. Normal left ventricular systolic function. EF by 2D Simpsons Biplane is 69%. Global longitudinal strain is -17.6%. Aortic Valve: Silverman Smita 3 Ultra bioprosthetic aortic valve. AV mean gradient is 11 mmHg. No cusp thickening. No cusp calcification. No regurgitation. No stenosis. Normal prosthetic gradient. Aorta: Normal sized sinuses of Valsalva. Mildly dilated ascending aorta. Ao ascending diameter is 3.8 cm. Pericardium: No pericardial effusion. Left Ventricle Left ventricle size is normal. Mildly increased wall thickness. Normal left ventricular systolic function. EF by 2D Simpsons Biplane is 69%. Global longitudinal strain is -17.6%. Right Ventricle Right ventricle size is normal. Normal systolic function. Left Atrium Left atrium size is normal. LA Vol Index A/L is 32 mL/m2. Right Atrium Right atrium size is normal. IVC/SVC IVC diameter is normal and decreases greater than 50% during inspiration; therefore the estimated right atrial pressure is normal (~3 mmHg). Mitral Valve Valve structure is normal. No regurgitation. No stenosis noted. Tricuspid Valve Valve structure is normal. Trace regurgitation. Aortic Valve Silverman Smita 3 Ultra bioprosthetic aortic valve. AV mean gradient is 11 mmHg. No cusp thickening. No cusp calcification. No regurgitation. No stenosis. Normal prosthetic gradient. Pulmonic Valve Valve structure is normal. Trace regurgitation. Ascending Aorta Normal sized sinuses of Valsalva. Mildly dilated ascending aorta. Ao ascending diameter is 3.8 cm. Pericardium No pericardial effusion. Septum No interatrial shunt visualized on color Doppler. Study Details Image quality: fair. Additional technique includes myocardial strain. Heart rate: 65 bpm. Blood pressure: 150/78 mmHg. No contrast was given. CV CPACS Vital signsOrdered By: Grady [place] on 04-27-2024 Heart rate 63 /min bpm [facility] Work Phone: [phone] 04-26-2024 30 Problem: Pain - Adul t Goal: Verbalizes/displays adequate comfort level or baseline comfort level Outcome: Progressing Problem: Safety - Adult Goal: Free from fall injury Outcome: Progressing Problem: Discharge Planning Goal: Discharge to home or other facility with appropriate resources Outcome: Progressing Problem: Chronic Conditions and Co-morbidities Goal: Patient's chronic conditions and co-morbidity symptoms are monitored and maintained or improved Outcome: Progressing Normal [facility] ABO and Rh group Confirm Nom (Bld)on 04-26-2024 ABO group Nom (Bld) A [facility] D Ag Ql (RBC) Positive [facility] h [facility] BASIC METABOLIC PANELon Anion gap [Moles/Vol] 8 mmol/L Normal 3-13 [facility] Comment on above: Performed By: #### L AB15 ####Almond Grinder: KECIA TOPETE ([id number])[facility])[address] [place] [address] Calcium [Mass/Vol] 7.6 mg/dL Low 8.8-10.0 [facility] Comment on above: Performed By: #### L AB15 ####Almond Grinder: KECIA TOPETE ([id number])[facility] ([facility])[address] [place] [address] Chloride [Moles/Vol] 110 mmol/L High 98-107 [facility] Comment on above: Performed By: #### L AB15 ####Almond Grinder: KECIA [id number])[facility])[address] [place] [address] CO2 [Moles/Vol] 20 mmol/L Low 23-31 [facility] Comment on above: Performed By: #### L AB15 ####Almond Grinder: KECIA [id number])[facility] ([facility])[address] [place] [address] Creatinine [Mass/Vol] 0.76 mg/dL Normal 0.72-1.25 [facility] Comment on above: Performed By: #### L AB15 ####Almond Grinder: KECIA TOPETE ([id number])[facility])[address] [place] [address] GLOMERULAR FILTRATION RATE ML/MIN/1.73 SQ M.PREDICTED >90.0 Normal >60.0 [facility] Comment on above: Result Comment: Calc ulation based on the Chronic Kidney Disease Epidemiology Collaboration (CKD-EPI) equation refit without adjustment for race Performed By: #### L AB15 ####Almond Grinder: KECIA TOPETE ([id number])[facility])[address] [place] [address] Glucose [Mass/Vol] 75 mg/dL Low 82-115 [facility] Comment on above: Performed By: #### L AB15 ####Almond Grinder: KECIA TOPETE ([id number])[facility])[address] [place] [address] Potassium [Moles/Vol] 3.5 mmol/L Normal 3.5-5.1 [facility] Comment on above: Result Comment: [facility] potassium values may be up to 0.5 mmol/L lower than serum values. Performed By: #### L AB15 ####Almond Grinder: KECIA TOPETE ([id number])[facility])[address] [place] [address] [place] Sodium [Moles/Vol] 138 mmol/L Normal 136-145 [facility] Comment on above: Performed By: #### L AB15 ####Almond Grinder: KECIA TOPETE ([id number])[facility])[address] [place] [address] Urea nitrogen [Mass/Vol] 5 mg/dL Low 9-23 [facility] Comment on above: Performed By: #### L AB15 ####Almond Grinder: KECIA TOPETE ([id number])[facility] ([facility])[address] [place] [address] BLOOD TYPE AND SCREEN GELon 04-26-2024 ABO GROUPING A Normal [facility] Comment on above: Performed By: #### L [id number] ####Almond Grinder: KECIA TOPETE ([id number])[facility] ([facility])[address] [place] [address] RH TYPE IN BLOOD Positive Normal [facility] Comment on above: Performed By: #### L [id number] ####Almond Grinder: KECIA TOPETE ([id number])[facility] ([facility])[address] [place] [address] Basic metabolic 1998 panelon 04-26-2024 Anion gap [Moles/Vol] 8 mmol/L 3 - 13 mmol/L [facility] Calcium [Mass/Vol] 7.6 mg/dL Low 8.8 - 10. 0 mg/dL [facility] Chloride [Moles/Vol] 110 mmol/L High 98 - 10 7 mmol/L [facility] CO2 [Moles/Vol] 20 mmol/L Low 23 - 31 mmol/L [facility] Creatinine [Mass/Vol] 0.76 mg/dL 0.72 - 1.25 mg/dL [facility] GFR/1.73 sq M.predicted (S/P/Bld) [Vol rate/Area] - PINF [facility] Comment on above: Calculation based on the Chronic Kidney Disease Epidemiology Collaboration (CKD-EPI) equation refit without adjustment for race Glucose [Mass/Vol] 75 mg/dL Low 82 - 115 mg/dL [facility] Interpretation and review of laboratory results Abnormal [facility] Potassium [Moles/Vol] 3.5 mmol/L 3.5 - 5.1 mmol/L [facility] Comment on above: Plasma potassium jose ues may be up to 0.5 mmol/L lower than serum values. Sodium [Moles/Vol] 138 mmol/L 136 - 145 mmol/L [facility] Urea nitrogen [Mass/Vol] 5 mg/dL Low 9 - 23 mg/dL [facility] Blood type and Crossmatch rodney solorio (Bld)on 04-26-2024 ABO group Nom (Bld) A [facility] Blood group antibody screen GEL Ql Negative [facility] D Ag Ql (RBC) Positive [facility] h [facility] CBC (HEMOGRAM)on 04-26-2024 Erythrocyte distribution width (RBC) [Ratio] 14.2 % Normal 11.5-15.0 [facility] Comment on above: Performed By: #### L [id number] ####Almond Grinder: KECIA TOPETE ([id number])[facility])[address] [place] [address] Hematocrit (Bld) [Volume fraction] 35.1 % Low 40.0-52.0 [facility] Comment on above: Performed By: #### L AB294 ####Almond Grinder: KECIA TOPETE ([id number])[address] Hemoglobin (Bld) [Mass/Vol] 11.6 g/dL Low 13.0-18.0 [facility] Comment on above: Performed By: #### L AB294 ####Almond Grinder: KECIA TOPETE ([id number])[facility])[address] [place] [address] MCH (RBC) [Entitic mass] 29.8 pg Normal 26.0-34.0 [facility] Comment on above: Performed By: #### L AB294 ####Almond Grinder: KECIA TOPETE ([id number])[facility])[address] [place] [address] MCHC 33.0 % Normal 30.5-36.0 [facility] Comment on above: Performed By: #### L AB294 ####Almond Grinder: KECIA TOPETE ([id number])[facility])[address] [place] [address] MCV (RBC) [Entitic vol] 90.2 fL Normal 77.0-99.0 S [facility] Comment on above: Performed By: #### L AB294 ####Almond Grinder: KECIA TOPETE ([id number])[facility])[address] [place] [address] Platelet mean volume (Bld) [Entitic vol] 9.8 fL Normal 9.0-12.7 [facility] Comment on above: Performed By: #### L AB294 ####Almond Grinder: KECIA TOPETE ([id number])[facility] ([facility])[address] [place] [address] Platelets (Bld) [#/Vol] 137 10*3/uL Low 140-440 [facility] Comment on above: Performed By: #### L AB294 ####Almond Grinder: KECIA TOPETE ([id number])[facility] ([facility])[address] [place] [address] RBC (Bld) [#/Vol] 3.89 10*6/uL Low 4.40-5.90 [facility] Comment on above: Performed By: #### L AB294 ####Almond Grinder: KECIA TOPETE ([id number])[facility] ([facility])[address] [place] [address] WBC (Bld) [#/Vol] 6.8 10*3/uL Normal 3.6-10.7 [facility] Comment on above: Performed By: #### L [id number] ####Almond Grinder: KECIA TOPETE ([id number])[facility])[address] [place] [address] CBC panel Auto (Bld)on 04-26 Erythrocyte distribution width (RBC) [Ratio] 14.2 % 11.5 - 15.0 % [facility] Hematocrit (Bld) [Volume fraction] 35.1 % Low 40.0 - 52.0 % [facility] Hemoglobin (Bld) [Mass/Vol] 11.6 g/dL Low 13.0 - 18.0 g/dL [facility] Interpretation and review of laboratory results Abnormal [facility] MCH (RBC) [Entitic mass] 29.8 pg 26.0 - 34.0 pg [facility] MCHC (RBC) [Mass/Vol] 33 % 30.5 - 36.0 % [facility] MCV (RBC) [Entitic vol] 90.2 fL 77.0 - 99.0 fL [facility] Platelet mean volume (Bld) [Entitic vol] 9.8 fL 9.0 - 12.7 fL [facility] Platelets (Bld) [#/Vol] 137 10*3/uL Low 140 - 440 10*3/uL [facility] RBC (Bld) [#/Vol] 3.89 10*6/uL Low 4.40 - 5.9 0 10*6/uL [facility] WBC (Bld) [#/Vol] 6.8 10*3/uL 3.6 - 10.7 10*3/uL [facility] Cardiac catheterization stud yon 04-26-2024 Successful TAVR with a 26mm Smita S3u valve, via right transfemoral approach TAVR Procedural Report Interventional Cardiologists: -Galo Koo MD -Sarah Guallpa MD (Fellow) Cardiothoracic Surgeon: -Bj Herring MD Procedure: 1. A 26 SMITA S3 VALVE IMPLANTATION (26-1) 2. TRANSFEMORAL TRANSCATHETER AORTIC VALVE REPLACEMENT. Preoperative Diagnosis: Severe and symptomatic aortic stenosis. Postoperative Diagnosis: Severe aortic stenosis. Anesthesia: Moderate Conscious Sedation History of Present Illness: This is a very pleasant 73 y.o. male with a history of severe and symptomatic aortic stenosis. his case was discussed in our multidisciplinary valve conference and was felt to be of appropriate candidacy for TAVR. The pros, cons, risks, benefits, and alternatives of transcatheter aortic valve replacement were reviewed with the patient, and questions were answered, he provided informed consent and wished to proceed with the procedure. Description of Procedure: The patient was brought to the operating suite by anesthesia. The patient was placed under moderate sedation. The patient was then cleaned, prepped and draped in the normal sterile manner. Access was then gained in the right femoral artery, right radial artery, and right femoral vein. Via the right femoral vein, a 6 English sheath was placed and temporary pacing wire was placed into the RV apex with appropriate capture, in addition sterile tubing was attached and given the anesthesia for central access. Via right radial artery, a 6-English sheath was placed and the pigtail catheter was placed into the aortic annulus with confirmation the implant angle. Via the right femoral artery, a 6-English sheath was placed. The patient was then heparinized. Next, two Perclose devices were used using the pre-close strategy. An Amplatz Super Stiff wire was then placed through the second Perclose into the descending aorta. Then, a 14-English Smita E-sheath was introduced over the wire into the descending aorta. The sheath was then flushed. Next, an AL1 catheter and a straight wire were used to cross the aortic valve through the e- sheath. The straight wire was then removed and an Amplatz extra stiff wire (formed into a curve) was placed into the LV apex. Next, the AL1 catheter was removed. Next a 26 mm Smita S3 valve was then advanced through the sheath into the descending aorta.The valve was then mounted on the balloon, the delivery catheter was flexed and advanced around the aortic arch and across the aortic annulus. The valve was then deployed under rapid pacing. Confirmation of an appropriate implant position and appropriately functioning valve was done using TTE. Next, the delivery catheter, extra stiff wire, and large sheath were removed and the Perclose devices were used for hemostasis. A Vascband was used for hemostasis of the additional arterial site. Manual pressure was used for hemostasis of the femoral venous access site. Overall, the patient tolerated the procedure well with minimal blood loss. No immediate complications. The patient will return to the Cardiac Care unit for continued monitoring. It was a pleasure taking care of your patient while hospitalized at [facility]. I will continue to follow along while hospitalized. Please do not hesitate to call with any questions. [facility] Cardiac catheterization stud yOrdered By: Galo Koo on 04-26-2024 [facility] Work Phone: No Panel Informationon 04-26 Interpretation and review of laboratory results Abnormal [facility] POCT ACT 329 High [facility] Performed by: [facility], [address] [place] [address] CLIA ID: [id number] [facility] Op Noteon 04-26-2024 Op Note TAVR Procedural Report Interventional Cardiologists: -Galo Koo MD -Sarah Guallpa MD (Fellow) Cardiothoracic Surgeon: -Bj Herring MD -I was present and readily available for emergency surgical intervention if needed Procedure: 1. A 26 SMITA S3 VALVE IMPLANTATION (26-) 2. TRANSFEMORAL TRANSCATHETER AORTIC VALVE REPLACEMENT. Preoperative Diagnosis: Severe and symptomatic aortic stenosis. Postoperative Diagnosis: Severe aortic stenosis. Anesthesia: Moderate Conscious Sedation History of Present Illness: This is a very pleasant 73 y.o. male with a history of severe and symptomatic aortic stenosis. his case was discussed in our multidisciplinary valve conference and was felt to be of appropriate candidacy for TAVR. The pros, cons, risks, benefits, and alternatives of transcatheter aortic valve replacement were reviewed with the patient, and questions were answered, he provided informed consent and wished to proceed with the procedure. Description of Procedure: The patient was brought to the operating suite by anesthesia. The patient was placed under moderate sedation. The patient was then cleaned, prepped and draped in the normal sterile manner. Access was then gained in the right femoral artery, right radial artery, and right femoral vein. Via the right femoral vein, a 6 English sheath was placed and temporary pacing wire was placed into the RV apex with appropriate capture, in addition sterile tubing was attached and given the anesthesia for central access. Through the right radial artery, a 6-English sheath was placed and the pigtail catheter was placed into the aortic annulus with confirmation the implant angle. Via the right femoral artery, a 6-English sheath was placed. The patient was then heparinized. Next, two Perclose devices were used using the pre-close strategy. An Amplatz Super Stiff wire was then placed through the second Perclose into the descending aorta. Then, a 14-English Smita E-sheath was introduced over the wire into the descending aorta. The sheath was then flushed. Next, an AL1 catheter and a straight wire were used to cross the aortic valve through the e- sheath. The straight wire was then removed and an Amplatz extra stiff wire (formed into a curve) was placed into the LV apex. Next, the AL1 catheter was removed. Next a 26 mm Smita S3 valve was then advanced through the sheath into the descending aorta.The valve was then mounted on the balloon, the delivery catheter was flexed and advanced around the aortic arch and across the aortic annulus. The valve was then deployed under rapid pacing. Confirmation of an appropriate implant position and appropriately functioning valve was done using TTE. Next, the delivery catheter, extra stiff wire, and large sheath were removed and the Perclose devices were used for hemostasis. A Vascband was used for hemostasis of the additional arterial site. Manual pressure was used for hemostasis of the femoral venous access site. Overall, the patient tolerated the procedure well with minimal blood loss. No immediate complications. The patient will return to the Cardiac Care unit for continued monitoring. Normal [facility] US Heart TransthoracicOrdere d By: James Harmon on 04-26-2024 Aortic valve Mean systole pressure gradient by US.doppler derived full Bernoulli 3 mmHg [facility] Work Phone: Aortic valve Orifice area by US 3.5 cm2 [facility] Work Phone: [phone] Aortic valve Peak systolic flow by US.doppler 0.8 m/s [facility] Work Phone: [phone] AV Area (Pre-TAVR) 0.8 cm2 [facility] Work Phone: [phone] AV Area by Peak Velocity 2.4 cm2 [facility] Work Phone: [phone] AV Area by VTI 3.5 cm2 [facility] Work Phone: [phone] AV Mean Gradient (Pre-TAVR) 42 mmHg [facility] Work Phone: AV Peak Gradient 7 mmHg [facility] Work Phone: [phone] AV Peak Gradient (Pre-TAVR) 71 mmHg [facility] Work Phone: [phone] AV Peak Velocity 1.3 m/s [facility] alth Work Phone: AV Peak Velocity (Pre-TAVR) 4.2 m/s [facility] Work Phone: AV Velocity Ratio 0.69 [facility] ealth Work Phone: AV VTI 23.6 cm [facility] Work Phone: SHEKHAR/BSA Peak Velocity 1.2 cm2/m2 [facility] Work Phone: SHEKHAR/BSA VTI 1.8 cm2/m2 [facility] Work Phone: Interpretation and review of laboratory results Abnormal [facility] Work Phone: Left ventricular Ejection fraction by US.2D+Calculated by biplane method of disks 65 % 55 - 100 % [facility] alth Work Phone: LV EDV A2C 45 mL [facility] Work Phone: LV EDV A4C 41 mL [facility] Work Phone: LV EDV BP 46 mL Abnormal 67 - 155 mL [facility] Work Phone: LV EDV Index A2C 23 mL/m2 [facility] Work Phone: LV EDV Index A4C 21 mL/m2 [facility] Work Phone: LV EDV Index BP 23 mL/m2 [facility] Work Phone: LV Ejection Fraction A2C 68 % [facility] [facility] Work Phone: LV Ejection Fraction A4C 59 % [facility] Work Phone: LV ESV A2C 15 mL [facility] Work Phone: LV ESV A4C 17 mL [facility] Work Phone: LV ESV BP 16 mL Abnormal 22 - 58 mL [facility] Work Phone: LV ESV Index A2C 8 mL/m2 [facility] Work Phone: LV ESV Index A4C 9 mL/m2 [facility] Work Phone: LV ESV Index BP 8 mL/m2 [facility] Work Phone: LVOT Cardiac Output 4 liter/minute [facility] Work Phone: LVOT Diameter 2.1 cm [facility] Work Phone: LVOT Mean Gradient 2 mmHg [facility] Work Phone: [phone] LVOT Peak Gradient 3 mmHg [facility] Work Phone: LVOT Peak Velocity 0.9 m/s [facility] Work Phone: LVOT Stroke Volume Index 40.8 mL/m2 [facility] Work Phone: LVOT SV 81.7 ml [facility] Work Phone: LVOT VTI 23.6 cm [facility] Work Phone: LVOT:AV VTI Index 1 [facility] Work Phone: TR Max Velocity 2.83 m/s [facility] Work Phone: TR Peak Gradient 32 mmHg [facility] Work Phone: [facility] Work Phone: 36on 04-21-2024 36 Approved and scanned under Media Requested on Snapboard Normal [facility] 29on 04-20-2024 29 Addended by: ERIN NICHOLAS on: 04/20/2024 10:50 AM Modules accepted: Orders Normal [facility] 36on 04-20-2024 36 Still pending on Availity #[id number] Normal [facility] 36 Spoke with [facility] lab, faxing results of BMP completed on 04/13/24. Pended pre-TAVR labs and CXR orders. Amalia Banuelos APRN to sign. Normal [facility] CBC WITH AUTO DIFFERENTIALon 04-20-2024 Basophils (Bld) [#/Vol] 0.1 10*3/uL Normal 0.0-0.2 [facility] Comment on above: Performed By: #### L [id number] ####Almond Grinder: KECIA TOPETE ([id number])[address] Basophils/100 WBC (Bld) 1.0 % Normal 0.0-2.0 S [facility] Comment on above: Performed By: #### L [id number] ####Almond Grinder: KECIA TOPETE ([id number])[facility] ([facility])[address] [place] [address] Eosinophils (Bld) [#/Vol] 0.3 10*3/uL Normal 0.0-0.5 [facility] Comment on above: Performed By: #### L [id number] ####Almond Grinder: KECIA TOPETE ([id number])[facility] ([facility])[address] [place] [address] [place] Eosinophils/100 WBC (Bld) 3.6 % Normal 0.0-6.0 [facility] Comment on above: Performed By: #### L [id number] ####Almond Grinder: KECIA TOPETE ([id number])[address] Erythrocyte distribution width (RBC) [Ratio] 14.2 % Normal 11.5-15.0 [facility] Comment on above: Performed By: #### L [id number] ####Almond Grinder: KECIA TOPETE ([id number])[address] Hematocrit (Bld) [Volume fraction] 43.0 % Normal 40.0-52.0 [facility] Comment on above: Performed By: #### L [id number] ####Almond Grinder: KECIA TOPETE ([id number])[address] Hemoglobin (Bld) [Mass/Vol] 14.0 g/dL Normal 13.0-18.0 [facility] Comment on above: Performed By: #### L [id number] ####Almond Grinder: KECIA TOPETE ([id number])[address] IMMATURE GRANS % 1.0 % Normal 0.0-2.0 [facility] Comment on above: Performed By: #### L [id number] ####Almond Grinder: KECIA TOPETE ([id number])[address] IMMATURE GRANS ABSOLUTE 0.1 10*3/uL High <0.1 [facility] Comment on above: Performed By: #### L [id number] ####Almond Grinder: KECIA TOPETE ([id number])[address] Lymphocytes (Bld) [#/Vol] 2.5 10*3/uL Normal 1.0-4.3 [facility] Comment on above: Performed By: #### L [id number] ####Almond Grinder: KECIA TOPETE ([id number])[facility])[address] [place] [address] Lymphocytes/100 WBC (Bld) 29.4 % Normal 15.0-45.0 [facility] Comment on above: Performed By: #### L [id number] ####Almond Grinder: KECIA TOPETE ([id number])[facility])[address] [place] [address] MCH (RBC) [Entitic mass] 29.2 pg Normal 26.0-34.0 [facility] Comment on above: Performed By: #### L [id number] ####Almond Grinder: KECIA TOPETE ([id number])[facility])[address] [place] [address] MCHC 32.6 % Normal 30.5-36.0 [facility] Comment on above: Performed By: #### L [id number] ####Almond Grinder: KECIA TOPETE ([id number])[facility])[address] [place] [address] MCV (RBC) [Entitic vol] 89.6 fL Normal 77.0-99.0 [facility] Comment on above: Performed By: #### L [id number] ####Almond Grinder: KECIA TOPETE ([id number])[facility])[address] [place] [address] Monocytes (Bld) [#/Vol] 0.8 10*3/uL Normal 0.0-0.9 [facility] Comment on above: Performed By: #### L [id number] ####Almond Grinder: KECIA TOPETE ([id number])[facility])[address] [place] [address] Monocytes/100 WBC (Bld) 10.0 % Normal 5.0-13.0 [facility] Comment on above: Performed By: #### L [id number] ####Almond Grinder: KECIA TOPETE ([id number])[facility])[address] [place] [address] NEUTROPHILS ABSOLUTE 4.6 10*3/uL Normal 1.8-7.5 [facility] Comment on above: Performed By: #### L [id number] ####Almond Grinder: EKCIA TOPETE ([id number])[facility] ([facility])[address] [place] [address] Neutrophils/100 WBC (Bld) 55.0 % Normal 38.0-82.0 [facility] Comment on above: Performed By: #### L [id number] ####Almond Grinder: KECIA TOPETE ([id number])[facility] ([facility])[address] [place] [address] NRBC 0.0 /100 WBCs Normal 0.0-2.0 [facility] Comment on above: Performed By: #### L [id number] ####Almond Grinder: KECIA TOPETE ([id number])[facility] ([facility])[address] [place] [address] Platelet mean volume (Bld) [Entitic vol] 9.7 fL Normal 9.0-12.7 [facility] Comment on above: Performed By: #### L [id number] ####Almond Grinder: KECIA TOPETE ([id number])[facility] ([facility])[address] [place] [address] Platelets (Bld) [#/Vol] 183 10*3/uL Normal 140-440 [facility] Comment on above: Performed By: #### L [id number] ####Almond Grinder: KECIA TPOETE ([id number])[facility] ([facility])[address] [place] [address] RBC (Bld) [#/Vol] 4.80 10*6/uL Normal 4.40-5.90 [facility] Comment on above: Performed By: #### L [id number] ####Almond Grinder: KECIA TOPETE ([id number])[facility] ([facility])[address] [place] [address] [place] WBC (Bld) [#/Vol] 8.3 10*3/uL Normal 3.6-10.7 [facility] Comment on above: Performed By: #### L [id number] ####Almond Grinder: KECIA TOPETE ([id number])[facility])[address] [place] [address] COMPREHENSIVE METABOLIC PANE Dominic 04-20-2024 Albumin [Mass/Vol] 3.7 g/dL Normal 3.4-4.8 [facility] Comment on above: Performed By: #### L [id number] ####Almond Grinder: KECIA TOPETE ([id number])[facility] ([facility])[address] [place] [address] ALP [Catalytic activity/Vol] 83 U/L Normal 40-150 [facility] Comment on above: Performed By: #### L [id number] ####Almond Grinder: KECIA TOPETE ([id number])[facility])[address] [place] [address] ALT [Catalytic activity/Vol] 10 U/L Normal <40 [facility] Comment on above: Performed By: #### L [id number] ####Almond Grinder: KECIA TOPETE ([id number])[facility] ([facility])[address] [place] [address] Anion gap [Moles/Vol] 6 mmol/L Normal 3-13 [facility] Comment on above: Performed By: #### L [id number] ####Almond Grinder: KECIA TOPETE ([id number])[facility])[address] [place] [address] AST [Catalytic activity/Vol] 24 U/L Normal <34 [facility] Comment on above: Performed By: #### L [id number] ####Almond Grinder: KECIA TOPETE ([id number])[facility])[address] [place] [address] Bilirubin [Mass/Vol] 0.8 mg/dL Normal <1.2 [facility] Comment on above: Performed By: #### L [id number] ####Almond Grinder: KECIA TOPETE ([id number])[facility] [place] [address] Calcium [Mass/Vol] 9.3 mg/dL Normal 8.8-10.0 [facility] Comment on above: Performed By: #### L [id number] ####Almond Grinder: KECIA TOPETE ([id number])[facility] [place] [address] Chloride [Moles/Vol] 102 mmol/L Normal 98-107 [facility] Comment on above: Performed By: #### L [id number] ####Almond Grinder: KECIA TOPETE ([id number])[facility] ([facility])[address] [place] [address] CO2 [Moles/Vol] 27 mmol/L Normal 23-31 [facility] Comment on above: Performed By: #### L [id number] ####Almond Grinder: KECIA TOPETE ([id number])[facility] ([facility])[address] [place] [address] Creatinine [Mass/Vol] 0.98 mg/dL Normal 0.72-1.25 [facility] Comment on above: Performed By: #### L [id number] ####Almond Grinder: KECIA TOPETE ([id number])[facility] ([facility])[address] [place] [address] GLOMERULAR FILTRATION RATE ML/MIN/1.73 SQ M.PREDICTED 80.9 mL/min/1.73m*2 Normal >60.0 [facility] Comment on above: Result Comment: Calc ulation based on the Chronic Kidney Disease Epidemiology Collaboration (CKD-EPI) equation refit without adjustment for race Performed By: #### L [id number] ####Almond Grinder: KECIA TOPETE ([id number])[facility] ([facility])[address] [place] [address] Glucose [Mass/Vol] 89 mg/dL Normal 82-115 [facility] Comment on above: Performed By: #### L [id number] ####Almond Grinder: KECIA TOPETE ([id number])[facility] ([facility])[address] [place] [address] Potassium [Moles/Vol] 4.8 mmol/L Normal 3.5-5.1 [facility] Comment on above: Result Comment: [facility] potassium values may be up to 0.5 mmol/L lower than serum values. Performed By: #### L [id number] ####Almond Grinder: KECIA TOPETE ([id number])[facility])[address] [place] [address] Protein [Mass/Vol] 7.2 g/dL Normal 6.4-8.3 [facility] Comment on above: Performed By: #### L [id number] ####Almond Grinder: KECIA TOPETE ([id number])[facility])[address] [place] [address] Sodium [Moles/Vol] 135 mmol/L Low 136-145 [facility] Comment on above: Performed By: #### L [id number] ####Almond Grinder: KECIA TOPETE ([id number])[facility])[address] [place] [address] Urea nitrogen [Mass/Vol] 8 mg/dL Low 9-23 [facility] Comment on above: Performed By: #### L [id number] ####Almond Grinder: KECIA TOPETE ([id number])[address] ANGIOGRAM TAVRon 04-20-19 CT ANGIOGRAM TAVR Patient Name: PATR[facility] : 1950 [id number] Exam Date/Time: 04/20/2024 11:05 Procedure: CT ANGIOGRAM TAVR Ordering Provider: BANUELOS MEGGAN Reason For Exam: Aortic valve replacement (TAVR), pre-op eval [facility] Cardiovascular CTA CLINICAL INDICATION: 73-year-old male with severe aortic stenosis, being evaluated for transcatheter aortic valve implantation. Computed tomography of the heart, thoracoabdominal aorta, and iliofemoral system was performed using a [employer] Aquilion One 320 detector scanner. Images were reconstructed and analyzed on an advanced post-processing 3D workstation. Dose reduction was employed with automated exposure control. Contrast: 100 mL Isovue-370 Total DLP: 907 mGy-cm Study Quality: Good Extracardiac Findings: Moderate to severe fibrotic and emphysematous changes are noted throughout the lungs with fibrotic changes worst at the lung bases. No focal consolidation is seen. There is no pleural effusion or pneumothorax. No suspicious pulmonary nodules are seen. There is no lymphadenopathy within the chest. The liver, gallbladder, spleen, pancreas, adrenal glands, and kidneys appear within normal limits. No lymphadenopathy is seen within the abdomen or pelvis. The urinary bladder appears grossly normal. The prostate does not appear enlarged. There is diverticulosis of the distal colon. Small bowel loops do not appear abnormally dilated or thickened. The appendix appears normal. There is no free air or free fluid within the abdomen or pelvis. No lytic or blastic lesions are seen on the bone windows. Posterior fusion hardware is noted within the lumbar spine. Cardiac Chambers: The pericardium is unremarkable. The left and right ventricles are normal in size. There is mild concentric hypertrophy of the left ventricle. The left atrium is mildly dilated. The left atrial appendage is normal in appearance. The right atrium is mildly dilated. Coronary Arteries: The coronaries have normal origins. There is a pattern of right coronary dominance. There is evidence of coronary atherosclerosis. The present study was not optimized for evaluation of the coronary arteries. Mitral Valve: The mitral annulus has mild calcification, without significant extension into the LVOT. The anterior mitral leaflet is free of the LVOT during systole. Aortic Valve: The aortic valve is tricuspid and heavily calcified. Aortic valve area by planimetry at 35% R-R Interval: 0.76 cm2 Predicted deployment angle (3-cusp view): ROMANIAN 14, CAU 12 Aortic Annulus: Dimensions: 2.8 x 2.2 cm Area: 4.3 cm2 Perimeter: 77 mm Left coronary height: 13 mm Right coronary height: 17 mm Aorta and Iliofemoral System Note: All vascular measurements are minimal luminal diameters using a centerline technique. Aortic Root and Thoracic Aorta: Sinuses: 3.5 x 3.3 cm Sinotubular junction: 2.8 x 2.6 cm Mid ascending Aorta: 3.9 x 3.7 cm Abdominal Aorta: Infrarenal: 16 mm Bifurcation: 12 mm Right Iliac System: Calcification: Moderate. Tortuosity: Mild. RCIA: 8 mm REIA: 7 mm RCFA: 6 mm Left Iliac System: Calcification: Moderate. Tortuosity: Mild. LCIA: 7 mm RO: 7 mm LCFA: 6 mm IMPRESSION: Aortic stenosis, with descriptive anatomy and annular / aortic root measurements as detailed above. Iliofemoral system as detailed above. Report Dictated on Electronically Signed By: Clarence Pastrana MD Electronically Signed Date/Time: 04/20/2024 4:39 PM EST [facility] CT Chest WO and CT angiogram Coronary arteries W contrast Aba 04-20-2024 Aortic stenosis, with descriptive anatomy and annular / aortic root measurements as detailed above. Iliofemoral system as detailed above. Report Dictated on Electronically Signed By: Clarence Pastrana MD Electronically Signed Date/Time: 04/20/2024 4:39 PM [facility] Patient Name: PATRICE VERGARA : 1950 Exam Date/Time: 04/20/2024 11:05 Procedure: CT ANGIOGRAM TAVR Ordering Provider: BANUELOS MEGGAN Reason For Exam: Aortic valve replacement (TAVR), pre-op [facility] Cardiovascular CTA CLINICAL INDICATION: 73-year-old male with severe aortic stenosis, being evaluated for transcatheter aortic valve implantation. Computed tomography of the heart, thoracoabdominal aorta, and iliofemoral system was performed using a [employer] Aquilion One 320 detector scanner. Images were reconstructed and analyzed on an advanced post-processing 3D workstation. Dose reduction was employed with automated exposure control. Contrast: 100 mL Isovue-370 Total DLP: 907 mGy-cm Study Quality: Good Extracardiac Findings: Moderate to severe fibrotic and emphysematous changes are noted throughout the lungs with fibrotic changes worst at the lung bases. No focal consolidation is seen. There is no pleural effusion or pneumothorax. No suspicious pulmonary nodules are seen. There is no lymphadenopathy within the chest. The liver, gallbladder, spleen, pancreas, adrenal glands, and kidneys appear within normal limits. No lymphadenopathy is seen within the abdomen or pelvis. The urinary bladder appears grossly normal. The prostate does not appear enlarged. There is diverticulosis of the distal colon. Small bowel loops do not appear abnormally dilated or thickened. The appendix appears normal. There is no free air or free fluid within the abdomen or pelvis. No lytic or blastic lesions are seen on the bone windows. Posterior fusion hardware is noted within the lumbar spine. Cardiac Chambers: The pericardium is unremarkable. The left and right ventricles are normal in size. There is mild concentric hypertrophy of the left ventricle. The left atrium is mildly dilated. The left atrial appendage is normal in appearance. The right atrium is mildly dilated. Coronary Arteries: The coronaries have normal origins. There is a pattern of right coronary dominance. There is evidence of coronary atherosclerosis. The present study was not optimized for evaluation of the coronary arteries. Mitral Valve: The mitral annulus has mild calcification, without significant extension into the LVOT. The anterior mitral leaflet is free of the LVOT during systole. Aortic Valve: The aortic valve is tricuspid and heavily calcified. Aortic valve area by planimetry at 35% R-R Interval: 0.76 cm2 Predicted deployment angle (3-cusp view): ROMANIAN 14, CAU 12 Aortic Annulus: Dimensions: 2.8 x 2.2 cm Area: 4.3 cm2 Perimeter: 77 mm Left coronary height: 13 mm Right coronary height: 17 mm Aorta and Iliofemoral System Note: All vascular measurements are minimal luminal diameters using a centerline technique. Aortic Root and Thoracic Aorta: Sinuses: 3.5 x 3.3 cm Sinotubular junction: 2.8 x 2.6 cm Mid ascending Aorta: 3.9 x 3.7 cm Abdominal Aorta: Infrarenal: 16 mm Bifurcation: 12 mm Right Iliac System: Calcification: Moderate. Tortuosity: Mild. RCIA: 8 mm REIA: 7 mm RCFA: 6 mm Left Iliac System: Calcification: Moderate. Tortuosity: Mild. LCIA: 7 mm RO: 7 mm LCFA: 6 mm [facility] Clarence Pastrana MD - 04/20/2024 Patient Name: PATRICE VERGARA : 1950 [id number] Exam Date/Time: 04/20/2024 11:05 Procedure: CT ANGIOGRAM TAVR Ordering Provider: BANUELOS MEGGAN Reason For Exam: Aortic valve replacement (TAVR), pre-op eval [facility] Cardiovascular CTA CLINICAL INDICATION: 73-year-old male with severe aortic stenosis, being evaluated for transcatheter aortic valve implantation. Computed tomography of the heart, thoracoabdominal aorta, and iliofemoral system was performed using a [employer] Aquilion One 320 detector scanner. Images were reconstructed and analyzed on an advanced post-processing 3D workstation. Dose reduction was employed with automated exposure control. Contrast: 100 mL Isovue-370 Total DLP: 907 mGy-cm Study Quality: Good Extracardiac Findings: Moderate to severe fibrotic and emphysematous changes are noted throughout the lungs with fibrotic changes worst at the lung bases. No focal consolidation is seen. There is no pleural effusion or pneumothorax. No suspicious pulmonary nodules are seen. There is no lymphadenopathy within the chest. The liver, gallbladder, spleen, pancreas, adrenal glands, and kidneys appear within normal limits. No lymphadenopathy is seen within the abdomen or pelvis. The urinary bladder appears grossly normal. The prostate does not appear enlarged. There is diverticulosis of the distal colon. Small bowel loops do not appear abnormally dilated or thickened. The appendix appears normal. There is no free air or free fluid within the abdomen or pelvis. No lytic or blastic lesions are seen on the bone windows. Posterior fusion hardware is noted within the lumbar spine. Cardiac Chambers: The pericardium is unremarkable. The left and right ventricles are normal in size. There is mild concentric hypertrophy of the left ventricle. The left atrium is mildly dilated. The left atrial appendage is normal in appearance. The right atrium is mildly dilated. Coronary Arteries: The coronaries have normal origins. There is a pattern of right coronary dominance. There is evidence of coronary atherosclerosis. The present study was not optimized for evaluation of the coronary arteries. Mitral Valve: The mitral annulus has mild calcification, without significant extension into the LVOT. The anterior mitral leaflet is free of the LVOT during systole. Aortic Valve: The aortic valve is tricuspid and heavily calcified. Aortic valve area by planimetry at 35% R-R Interval: 0.76 cm2 Predicted deployment angle (3-cusp view): ROMANIAN 14, CAU 12 Aortic Annulus: Dimensions: 2.8 x 2.2 cm Area: 4.3 cm2 Perimeter: 77 mm Left coronary height: 13 mm Right coronary height: 17 mm Aorta and Iliofemoral System Note: All vascular measurements are minimal luminal diameters using a centerline technique. Aortic Root and Thoracic Aorta: Sinuses: 3.5 x 3.3 cm Sinotubular junction: 2.8 x 2.6 cm Mid ascending Aorta: 3.9 x 3.7 cm Abdominal Aorta: Infrarenal: 16 mm Bifurcation: 12 mm Right Iliac System: Calcification: Moderate. Tortuosity: Mild. RCIA: 8 mm REIA: 7 mm RCFA: 6 mm Left Iliac System: Calcification: Moderate. Tortuosity: Mild. LCIA: 7 mm RO: 7 mm LCFA: 6 mm IMPRESSION: Aortic stenosis, with descriptive anatomy and annular / aortic root measurements as detailed above. Iliofemoral system as detailed above. Report Dictated on Electronically Signed By: Clarence Pastrana MD Electronically Signed Date/Time: 04/20/2024 4:39 PM [facility] Radiology Study observation (narrative) [facility] He al[facility] CT Chest WO and CT angiogram Coronary arteries W contrast IVOrdered By: Clarence Pastrana on 04-20-2024 [facility] [employer] XR Chest 2 Viewson Pulmonary fibrosis/chronic interstitial lung disease. Report Dictated on Electronically Signed By: Omar Duke MD Electronically Signed Date/Time: 04/20/2024 12:15 PM [facility] Patient Name: PATRICE VERGARA : 1950 Exam Date/Time: 04/20/2024 11:08 Procedure: XR CHEST 2 VIEWS Ordering Provider: BANUELOS MEGGAN Reason For Exam: aortic stenosis EXAM: XR Chest, 2 Views CLINICAL INDICATION: aortic stenosis TECHNIQUE: Frontal and lateral views of the chest. COMPARISON: No relevant prior studies available. FINDINGS: LUNGS AND PLEURAL SPACES: Findings consistent with pulmonary fibrosis/chronic interstitial lung disease. Otherwise no suspected acute opacification or consolidation. No pneumothorax. HEART: Unremarkable. No cardiomegaly. MEDIASTINUM: Unremarkable. Normal mediastinal contour. BONES/JOINTS: Thoracic spine degenerative changes. No acute fracture. [facility] Omar Duke MD - 04/20/2024 Patient Name: PATRICE VERGARA : 1950 [facility]#: [id number] Exam Date/Time: 04/20/2024 11:08 Procedure: XR CHEST 2 VIEWS Ordering Provider: BANUELOS MEGGAN Reason For Exam: aortic stenosis EXAM: XR Chest, 2 Views CLINICAL INDICATION: aortic stenosis TECHNIQUE: Frontal and lateral views of the chest. COMPARISON: No relevant prior studies available. FINDINGS: LUNGS AND PLEURAL SPACES: Findings consistent with pulmonary fibrosis/chronic interstitial lung disease. Otherwise no suspected acute opacification or consolidation. No pneumothorax. HEART: Unremarkable. No cardiomegaly. MEDIASTINUM: Unremarkable. Normal mediastinal contour. BONES/JOINTS: Thoracic spine degenerative changes. No acute fracture. IMPRESSION: Pulmonary fibrosis/chronic interstitial lung disease. Report Dictated on Electronically Signed By: Omar Duke MD Electronically Signed Date/Time: 04/20/2024 12:15 PM EST [facility] Radiology Study observation (narrative) [facility] XR Chest 2 ViewsOrdered By: Omar Duke on 04-20-2024 [facility] [employer] Work Phone: 36on 04-19-2024 36 Still pending on Availity Normal [facility] 36on 04-16-2024 36 Still pending on Availity Normal [facility] JI w/ Reflex Mult Confirmon 04-16-2024 JI TABLE TNP Normal [facility] Comment on above: Order Comment: BMP-D UNN OTHER TESTS-RUFENER Performed By: #### L 505.7010, L3300.1200, L4600.0100, L3100.5450, L500.2500 #### [facility] [address] [place], [place], [id number] ANTI-DNA (DS)AB TNP Normal [facility] Comment on above: Order Comment: BMP-D UNN OTHER TESTS-RUFENER Performed By: #### L 505.7010, L3300.1200, L4600.0100, L3100.5450, L500.2500 #### [facility] [address] [place], [place], [id number] 36on 04-15-2024 36 Still pending on Availity Normal [facility] 36 Lab results scanned under Media Normal [facility] ANCAon 04-14-2024 Atypical pANCA 1:40 Abnormal Neg:<1:20 [facility] Comment on above: Order Comment: BMP-D UNN OTHER TESTS-RUFENER Result Comment: The atypical pANCA pattern has been observed in a significant percentage of patients with ulcerative colitis, primary sclerosing cholangitis and autoimmune hepatitis. Performed By: #### L 505.7010, L3300.1200, L4600.0100, L3100.5450, L500.2500 #### [facility] [address] [place], [address] Cytoplasmic Ab <1:20 Normal Neg:<1:20 [facility] Comment on above: Order Comment: BMP-D UNN OTHER TESTS-RUFENER Performed By: #### L 505.7010, L3300.1200, L4600.0100, L3100.5450, L500.2500 #### [facility] [address] [place], [address] Perinuclear Ab. <1:20 Normal Neg:<1:20 [facility] Comment on above: Order Comment: BMP-D UNN OTHER TESTS-RUFENER Result Comment: The presence of positive fluorescence exhibiting P-ANCA or C-ANCA patterns alone is not specific for the diagnosis of Sophy's Granulomatosis (WG) or microscopic polyangiitis. Decisions about treatment should not be based solely on ANCA IFA results. The International ANCA Group Consensus recommends follow up testing of positive sera with both AL- 3 and MPO-ANCA enzyme immunoassays. As many as 5% serum samples are positive only by EIA. Ref. AM J Clin Pathol 1999;111:507-513. Performed By: #### L 505.7010, L3300.1200, L4600.0100, L3100.5450, L500.2500 #### [facility] [address] [place], [address] CCP IgG Antibodieson 025 CCP IgG Ab. 3 units Normal 0-19 [facility] Comment on above: Order Comment: BMP-D UNN OTHER TESTS-RUFENER Result Comment: Nega tive <20 Weak positive 20 - 39 Moderate positive 40 - 59 Strong positive >59 Performed at: [facility] [address] [place], [place] [id number] Wall Insulation Sprayer: Lon Lou PhD, Phone: [phone] Performed By: #### L 505.7010, L3300.1200, L4600.0100, L3100.5450, L500.2500 #### [facility] [address] [place], [place], [id number] JI serumOrdered By: JANNETH Burt on 04-13-2024 Anti-Nuclear Antibody Screen Negative Negative [facility] Comment on above: Performed at: [employer] [facility] [address] [id number] Director: Lon Lou PhD, Phone: [phone] Atypical perinuclear antineu trophil cytoplasmic antibodies measurementOrdered By: JANNETH Burt on 04-13-2024 Atypical p-ANCA 1:40 titer High Neg:<1:20 [facility] Comment on above: The atypical pANCA p attern has been observed in asignificant percentage of patients with ulcerative colitis,primary sclerosing cholangitis and autoimmune hepatitis. Basic Metabolic Profile (BMP )on 04-13-2024 BUN/CRE 5.0 RATIO Low 10-20 [facility] Comment on above: Order Comment: BMP-D UNN OTHER TESTS-RUFENER Performed By: #### L 505.7010, L3300.1200, L4600.0100, L3100.5450, L500.2500 #### [facility] [address] [place], [place], [id number] CA,Total 9.4 mg/dL Normal 8.5-10.1 [facility] Comment on above: Order Comment: BMP-D UNN OTHER TESTS-RUFENER Performed By: #### L 505.7010, L3300.1200, L4600.0100, L3100.5450, L500.2500 #### [facility] [address] [place], [address] Chloride [Moles/Vol] 104 mmol/L Normal 98-107 [facility] Comment on above: Order Comment: BMP-D UNN OTHER TESTS-RUFENER Performed By: #### L 505.7010, L3300.1200, L4600.0100, L3100.5450, L500.2500 #### [facility] [address] [place], [address] CO2 [Moles/Vol] 27.0 mmol/L Normal 21.0-32.0 [facility] Comment on above: Order Comment: BMP-D UNN OTHER TESTS-RUFENER Performed By: #### L 505.7010, L3300.1200, L4600.0100, L3100.5450, L500.2500 #### [facility] [address] [place], [address] Creatinine [Mass/Vol] 1.00 mg/dL Normal 0.70-1.30 [facility] Comment on above: Order Comment: BMP-D UNN OTHER TESTS-RUFENER Result Comment: The validity of the calculated GFR GFRAA in patients over 70 years has not been determined. Clinical correlation is essential. Performed By: #### L 505.7010, L3300.1200, L4600.0100, L3100.5450, L500.2500 #### [facility] [address] [place], [address] EST GFR - AA 94 mL/min Normal >60 [facility] Comment on above: Order Comment: BMP-D UNN OTHER TESTS-RUFENER Result Comment: Afri can Spanish GFR Calc Performed By: #### L 505.7010, L3300.1200, L4600.0100, L3100.5450, L500.2500 #### [facility] [address] [place], [address] GAP 8 Normal 5-15 [facility] Comment on above: Order Comment: BMP-D UNN OTHER TESTS-RUFENER Performed By: #### L 505.7010, L3300.1200, L4600.0100, L3100.5450, L500.2500 #### [facility] [address] [place], [address] GFR/1.73 sq M.predicted among non-blacks MDRD (S/P/Bld) [Vol rate/Area] 78 mL/min/{1.73_m2} Normal >60 [facility] Comment on above: Order Comment: BMP-D UNN OTHER TESTS-RUFENER Result Comment: Non- GFR Calc Performed By: #### L 505.7010, L3300.1200, L4600.0100, L3100.5450, L500.2500 #### [facility] [address] [place], [address] Glucose [Mass/Vol] 100 mg/dL Normal 74-106 [facility] Comment on above: Order Comment: BMP-D UNN OTHER TESTS-RUFENER Result Comment: Fast ing Glucose result from 100 to 125 mg/dL suggests IMPAIRED HOMEOSTASIS per A.D.A. criteria. Performed By: #### L 505.7010, L3300.1200, L4600.0100, L3100.5450, L500.2500 #### [facility] [address] [place], [address] Potassium [Moles/Vol] 4.3 mmol/L Normal 3.5-5.1 [facility] Comment on above: Order Comment: BMP-D UNN OTHER TESTS-RUFENER Performed By: #### L 505.7010, L3300.1200, L4600.0100, L3100.5450, L500.2500 #### [facility] [address] [place], [address] Sodium [Moles/Vol] 138 mmol/L Normal 136-145 [facility] Comment on above: Order Comment: BMP-D UNN OTHER TESTS-RUFENER Performed By: #### L 505.7010, L3300.1200, L4600.0100, L3100.5450, L500.2500 #### [facility] [address] [place], [address] Urea nitrogen [Mass/Vol] 5 mg/dL Low 7-18 [facility] Comment on above: Order Comment: BMP-D UNN OTHER TESTS-ERNESTO Performed By: #### L 505.7010, L3300.1200, L4600.0100, L3100.5450, L500.2500 #### [facility] [address] [place], [address] Blood urea nitrogen (BUN)/cr eatinine ratioOrdered By: JANNETH Burt on 04-13-2024 Urea nitrogen/Creatinine [Mass ratio] 5.0 mg/mg Low 10-20 [facility] Carbon dioxide measurementOr dered By: JANNETH Burt on 04-13-2024 CO2 [Moles/Vol] 27.0 mmol/L 21.0-32.0 [facility] Centromere B antibody assayO rdered By: JANNETH Burt on 04-13-2024 Centromere B Antibody [facility] Comment on above: Test not performed Chloride measurementOrdered By: JANNETH Burt on 04-13-2024 Chloride [Moles/Vol] 104 mmol/L 98-107 [facility] Chromatin antibody assayOrde red By: JANNETH Burt on 04-13-2024 Antichromatin Antibodies [facility] Comment on above: Test not performed Cyclic citrullinated peptide IgG QnOrdered By: JANNETH Burt on 04-13-2024 Cyclic Citrullinated Peptide IgG Ab 3 units 0-19 [facility] Comment on above: Negative <20 Weak po sitive 20 - 39 Moderate positive 40 - 59 Strong positive >59Performed at: [facility] [address] [id number] Director: Lon Lou PhD, Phone: [phone] DNA double strand Ab Qn (S)O rdered By: JANNETH Burt on 04-13-2024 Anti-Double Strand DNA Antibody [facility] Comment on above: Test not performed Estimated glomerular filtrat ion rate (GFR) AmericanOrdered By: JANNETH Burt on 04-13-2024 Estimated GFR (MDRD) Amer 94 mL/min >60 [facility] Comment on above: GFR Calc Glomerular filtration rate ( GFR) estimationOrdered By: JANNETH Burt on 04-13-2024 Estimated GFR (MDRD) Non-Af Amer 78 mL/min >60 [facility] Comment on above: Non- GFR Calc Glucose measurementOrdered B y: JANNETH Burt on 04-13-2024 Glucose [Mass/Vol] 100 mg/dL 74-106 [facility] Comment on above: Fasting Glucose resu lt from 100 to 125 mg/dL suggests IMPAIRED HOMEOSTASIS per A.D.A. criteria. Elana-1 antibody assayOrdered B y: JANNETH Burt on 04-13-2024 ELANA-1 Antibody TNP [facility] Comment on above: Test not performed Neutrophil cytoplasmic Ab.cl assic Qn (S)Ordered By: JANNETH Burt on 04-13-2024 Cytoplasmic ANCA (c-ANCA) Antibody <1:20 titer Neg:<1:20 [facility] Neutrophil cytoplasmic Ab.pe rinuclear IF (S) [Titer]Ordered By: JANNETH Burt on 04-13-2024 Perinuclear ANCA (p-ANCA) Antibody <1:20 titer Neg:<1:20 [facility] Comment on above: The presence of posi tive fluorescence exhibiting P-ANCA orC-ANCA patterns alone is not specific for the diagnosis ofWegener's Granulomatosis (WG) or microscopic polyangiitis.Decisions about treatment should not be based solely onANCA IFA results. The International ANCA Group Consensusrecommends follow up testing of positive sera with both AL-3 and MPO-ANCA enzyme immunoassays. As many as 5% serumsamples are positive only by EIA. Ref. AM J Clin Xxpgey2388;111:507-513. Potassium measurementOrdered By: JANNETH Burt on 04-13-2024 Potassium [Moles/Vol] 4.3 mmol/L 3.5-5.1 [facility] Pulmonary Visit Reporton Pulmonary Visit Report [facility] [place] [id number] [place] [address] OFFICE VISIT Date of Service: 04/13/24 MR#: [id number] Acct: [id number] Name: PATRICE VERGARA Rep #: [id number] : 1950 Provider: Marisel Burt NP Age/Sex: 73/M Location: [facility] [place] [place].[facility]W Status: Signed Assessment and Plan Assessment and Plan (1) Pulmonary fibrosis: Status: Acute Plan: There is a progressive UIP pattern identified on the CT scan when compared to the CTA from 2015. There is peripheral honeycombing and traction bronchiectasis likely contributing to his shortness of breath. It is confirmed with a significant reduction in the DLCO when comparing the PFT to 2014. There was a PFT from April 2023 which shows a similar DLCO. Anti-fibrotic's were discussed with patient and family today. At this point I plan to begin the patient on Ofev. The patient understands that antifibrotic's may be able to slow down further disease process but is not able to reverse the current fibrosis that has been identified. I have recommended lab work for the ILD workup to evaluate for secondary fibrosing NSIP patterns. The patient understands that LFT monitoring is required monthly for the first 3 months and then every 3 months thereafter. I have reviewed the use and potential side effects of Ofev with patient and family. [facility] I would like this patient to begin this medication after valve replacement. This patient and his plan, CT scan and PFT were reviewed with Dr. Dominguez at length today. (2) Shortness of breath on exertion: Status: Chronic Plan: Deteriorated, both the aortic valve and pulmonary fibrosis that has been identified could be contributing to the worsening shortness of breath on exertion. Await response to valve replacement and reassess on follow up. (3) Smoking greater than 20 pack years: Status: Chronic Comment: smoking daily Plan: Complete marijuana smoking cessation is recommended. I will consider further imaging on follow up. (4) Obstructive sleep apnea: Status: Chronic Plan: He is using and benefiting from Pap therapy. I will consider a nocturnal oximetry on follow-up once the valve has been replaced. I have asked for him to wash his face prior to placing the mask on to help with air leak. Apnea is well-controlled despite air leak. Continue with compliant use of PAP therapy. Contact the office for any new or worsening symptoms in the meantime. (5) Nonrheumatic aortic (valve) stenosis: Status: Chronic Plan: The patient is planning to proceed with aortic valve replacement surgery. Reassess after surgery. (6) Chronic obstructive lung disease: Status: Chronic Plan: At this point I do not believe that COPD is the main cause of his current shortness of breath as there is mild obstruction on PFT. I am concerned about a progressive interstitial disease process. I have recommended that he continue with use of Sprivia at this time. Use albuterol 2 inhalations up to 4 times daily as needed. (7) Oral candidiasis: Status: Acute Plan: Treat with Nystatin. Reassess on follow up. Orders: Orders Rheumatoid Factor Today R06.02 - Shortness of breath ANCA Today R06.02 - Shortness of breath CCP IgG Antibodies Today R06.02 - Shortness of breath JI w/ Reflex Mult Confirm Today R06.02 - Shortness of breath Liver Profile 6 Weeks J84.10 - Pulmonary fibrosis, unspecified, R06.02 - Shortness of breath Medications: New nintedanib (Ofev) Patient to begin after aortic valve replacement. 150 mg PO Q12H 60 caps 3RF nystatin swish and swallow 1 mL PO TID 5 days 60 mL 0RF Plan Details Follow Up: 8 Weeks (LMR) HPI HPI Comments Details: This 73 year old male patient presents to the office today for follow-up of recent testing. He has a history of COPD with obstructive sleep apnea. He is ambulatory and currently on room air. He is accompanied today by his daughter. He has not recently been seen in the ED or urgent care for any respiratory illness. He has not required any antibiotics or prednisone for any breathing problems. He is did trial Trelegy after last visit and initially he reported that it was beneficial to his daughter but he was not able to continue with this regimen because [facility]. He then returned to using Spiriva. He has not recently used his albuterol rescue inhaler. He is not smoking cigarettes, if you recall, he quit smoking cigarettes in the year 1999. However, he is using marijuana daily. He smokes at least once daily. He does report shortness of breath on exertion. He believes that shortness of breath has progressed over the past 6 months. He has an occasional nonproductive cough, in the last 6 months she has had increase phlegm. He feels as though he has chest congestion and phlegm that he should (more content not included)... Normal [facility] TIE TAMPER abOrdered By: JANNETH Burt on 04-13-2024 TIE TAMPER Antibody [facility] Comment on above: Test not performed Rheumatoid Factoron 04-13-19 RHEUMATOID FAC 16.0 IU/mL High <15 [facility] Comment on above: Order Comment: BMP-D UNN OTHER TESTS-ERNESTO Performed By: #### L 505.7010, L3300.1200, L4600.0100, L3100.5450, L500.2500 #### [facility] [place], [address] Rheumatoid factor measuremen tOrdered By: JANNETH Burt on 04-13-2024 Rheumatoid Factor 16.0 IU/mL High <15 [facility] SCL-70 extractable nuclear A b Qn (S)Ordered By: JANNETH Burt on 04-13-2024 Scl-70 (Scleroderma) Antibody [facility] Comment on above: Test not performed SS-A IgG antibody assayOrder ed By: JANNETH Burt on 04-13-2024 SS-A/Ro IgG Antibody [facility] Comment on above: Test not performed SS-B IgG antibody assayOrder ed By: JANNETH Burt on 04-13-2024 SS-B/La IgG Antibody [facility] Comment on above: Test not performed Serum anion gap measurementO rdered By: JANNETH Burt on 04-13-2024 Anion gap [Moles/Vol] 8 mmol/L 5-15 [facility] Serum or plasma calcium scottie urement (mass/volume)Ordered By: JANNETH Burt on 04-13-2024 Calcium [Mass/Vol] 9.4 mg/dL 8.5-10.1 [facility] Serum or plasma creatinine m easurement (mass/volume)Ordered By: JANNETH Burt on 04-13-2024 Creatinine [Mass/Vol] 1.00 mg/dL 0.70-1.30 [facility] Comment on above: The validity of the calculated GFR & GFRAA in patients over 70 years has not been determined. Clinical correlation is essential. Serum or plasma urea nitroge n measurement (mass/volume)Ordered By: JANNETH Burt on 04-13-2024 Urea nitrogen [Mass/Vol] 5 mg/dL Low 7-18 [facility] Álvarez antibody assayOrdered By: JANNETH Burt on 04-13-2024 SM Antibody TNP [facility] Comment on above: Test not performed Sodium levelOrdered By: JANNETH Burt on 04-13-2024 Sodium [Moles/Vol] 138 mmol/L 136-145 [facility] 36on 04-12-2024 36 [place] [id number] on Availity Pending [id number] [facility] 36 Lab order faxed to [phone] and confirmed. Printed ins card to start auth and on PB/VC calendars. [facility] 36 Marietta Banuelos, PROVIDER SCRIBE - CNP4 days ago Patient s/p heart cath today. Has a LAD lesion that was IFR negative. Plan for CTA and TAVR. Orders placed. Spoke with patient and he is doing well after heart cath with no site concerns. Will have BMP drawn at [facility] tomorrow, Jack Montemayor to fax lab orders. Scheduled CTA with TAVR teach on 04/20/24, reviewed fasting 4 hours prior and oral hydration protocol. Agreed to below procedure date/time, Jack Montemayor to schedule procedure and obtain insurance PA. Dx: Aortic stenosis Procedure: TAVR Date/Time: 04/26/24 at 7:30 am Surgeon: Dr. Koo/ / Dr. Herring Location: [facility] Admission: TBA Anesthesia: MAC Normal [facility] 36on 04-08-2024 36 Patient s/p heart cath today. Has a LAD lesion that was IFR negative. Plan for CTA and TAVR. Orders placed. Normal [facility] Anesthesia Noteon 04-08-2024 Anesthesia Note Sedation Plan ASA class 2 - patient with mild systemic disease Mallampati class: II - soft palate, uvula, fauces visible. Sedation plan: local anesthesia and moderate (conscious sedation) Risks, benefits, and alternatives discussed with patient. Immediate reassessment prior to sedation: Patient's status reviewed and vital signs assessed; acceptable to perform procedure and proceed to administer sedation as planned. Normal [facility] 36on 04-02-2024 36 Approved [id number] 04/02-06/30/2024 PB calendar updated and requested on Snapboard. Normal [facility] 36 [facility] PFT and US scanned under Media [facility] 36on 04-01-2024 36 I called [facility] and requested PFT and carotid US. [facility] labs scanned under Media [facility] 36on 03-31-2024 36 You are scheduled fo r L/RHC with Dr. Koo on 04/08/24 at 9 am Report to [facility], 1st Floor [facility] by 7:30 am You can park in the [address] Deck or use [employer] parking (for a nominal fee of $6-7) and enter the hospital using the [address] entrance across from the parking deck You will need a designated class a regional drivers for the day of your procedure to take you home Nothing to eat or drink after midnight Please take your am medications with sips of water prior to leaving for the hospital. Please take your Aspirin and Plavix as usual before leaving for the hospital. Hold vitamins/supplements Get blood work done by 2 days prior at [facility]. Patient given lab orders to complete Please call the office at [phone] if you have any questions. Patient also had recent PFT and carotid US completed at [facility]. Jack Montemayor to obtain results Normal [facility] Absolute neutrophil counton 03-31-2024 Neutrophils (Bld) [#/Vol] 4.2 10*3/uL 2.0-7.7 [facility] Albumin to globulin ratioon 03-31-2024 Albumin/Globulin [Mass ratio] 0.9 {ratio} 0.9-2.4 [facility] Basophil percentageon 2024 Basophils/100 WBC (Bld) 0.8 % 0-1 [facility] Bilirubin, totalon Bilirubin [Mass/Vol] 0.70 mg/dL 0.20-1.00 [facility] Comment on above: For patients on eltr ombopag therapy, use of [facility] [place] TBIL is not recommended. Blood urea nitrogen (BUN)/cr eatinine ratioon 03-31-2024 Urea nitrogen/Creatinine [Mass ratio] 8.4 mg/mg Low 10-20 [facility] CBC W/Diff, Automatedon Absolute Lymph 2.40 X10 3/uL Normal 0.83-4.51 [facility] Comment on above: Performed By: #### L 100.0100, L500.4050 #### [facility] [address] [place], [address] Absolute Neut 4.2 X10 3/uL Normal 2.0-7.7 [facility] Comment on above: Performed By: #### L 100.0100, L500.4050 #### [facility] Laboratory [address] [place], [address] Basophils/100 WBC (Bld) 0.8 % Normal 0-1 [facility] Comment on above: Performed By: #### L 100.0100, L500.4050 #### [facility] Laboratory [address] [place], [address] Eosinophils/100 WBC (Bld) 4.4 % Normal 0-5 [facility] Comment on above: Performed By: #### L 100.0100, L500.4050 #### [facility] [address] [place], [address] Erythrocyte distribution width (RBC) [Ratio] 14.7 % High 11.6-14.6 [facility] Comment on above: Performed By: #### L 100.0100, L500.4050 #### [facility] Laboratory [address] [place], [address] Hematocrit (Bld) [Volume fraction] 40.0 % Normal 40-54 [facility] Comment on above: Performed By: #### L 100.0100, L500.4050 #### [facility] Laboratory [address] [place], [address] Hemoglobin (Bld) [Mass/Vol] 13.5 g/dL Normal 13.0-16.5 [facility] Comment on above: Performed By: #### L 100.0100, L500.4050 #### [facility] Laboratory [address] [place], [address] IG% 0.800 Normal 0.0-0.9 [facility] Comment on above: Result Comment: IG% - Immature Granulocytes (promyelocytes, myelocytes and metamyelocytes) > 1% indicates that a LEFT SHIFT is Present. Performed By: #### L 100.0100, L500.4050 #### [facility] Laboratory [address] [place], [address] Lymphocytes/100 WBC (Bld) 30.2 % Normal 19-41 [facility] Comment on above: Performed By: #### L 100.0100, L500.4050 #### [facility] Laboratory [address] [place], [address] MCH (RBC) [Entitic mass] 29.4 pg Normal 27.0-32.0 [facility] Comment on above: Performed By: #### L 100.0100, L500.4050 #### [facility] Laboratory [address] [place], [address] MCHC (RBC) [Mass/Vol] 33.8 g/dL Normal 32-36 [facility] Comment on above: Performed By: #### L 100.0100, L500.4050 #### [facility] Laboratory [address] [place], [address] MCV (RBC) [Entitic vol] 87.1 fL Normal 80-94 [facility] Comment on above: Performed By: #### L 100.0100, L500.4050 #### [facility] Laboratory [address] [place], [address] Monocytes/100 WBC (Bld) 11.8 % High 0-10 [facility] Comment on above: Performed By: #### L 100.0100, L500.4050 #### [facility] Laboratory [address] [place], [address] Neutrophils/100 WBC (Bld) 52.0 % Normal 47-70 [facility] Comment on above: Performed By: #### L 100.0100, L500.4050 #### [facility] Laboratory [address] [place], [address] Nucleated RBC (Bld) [#/Vol] 0 10*3/uL Normal 0-5 [facility] Comment on above: Performed By: #### L 100.0100, L500.4050 #### [facility] Laboratory [address] [place], [address] Platelet mean volume (Bld) [Entitic vol] 10.3 fL Normal 6.2-12.0 [facility] Comment on above: Performed By: #### L 100.0100, L500.4050 #### [facility] Laboratory [address] [place], [address] Platelets (Bld) [#/Vol] 157 10*3/uL Normal 150-450 [facility] Comment on above: Performed By: #### L 100.0100, L500.4050 #### [facility] [address] [place], [address] RBC (Bld) [#/Vol] 4.59 10*6/uL Low 4.6-6.2 [facility] Comment on above: Performed By: #### L 100.0100, L500.4050 #### [facility] Laboratory [address] [place], [address] RDW SD 46.8 fl High 35.1-43.9 [facility] Comment on above: Performed By: #### L 100.0100, L500.4050 #### [facility] Laboratory [address] [place], [address] WBC (Bld) [#/Vol] 8.0 10*3/uL Normal 4.4-11.0 [facility] Comment on above: Performed By: #### L 100.0100, L500.4050 #### [facility] [address] [place], [address] Carbon dioxide measurementon 03-31-2024 CO2 [Moles/Vol] 28.0 mmol/L 21.0-32.0 [facility] Chloride measurementon 03-31 Chloride [Moles/Vol] 101 mmol/L 98-107 [facility] Comprehensive Metabolic Prof ilon 03-31-2024 Albumin [Mass/Vol] 3.4 g/dL Normal 3.2-5.0 [facility] Comment on above: Performed By: #### L 100.0100, L500.4050 ####[facility] [address] [place], [address] Albumin/Globulin [Mass ratio] 0.9 {ratio} Normal 0.9-2.4 [facility] Comment on above: Performed By: #### L 100.0100, L500.4050 ####[facility] [address] [place], [address] ALK P 86 U/L Normal 45-117 [facility] Comment on above: Performed By: #### L 100.0100, L500.4050 ####[facility] [address] [place], [address] ALT [Catalytic activity/Vol] 17 U/L Normal 16-61 [facility] Comment on above: Performed By: #### L 100.0100, L500.4050 ####[facility] [address] [place], [address] AST [Catalytic activity/Vol] 18 U/L Normal 15-37 [facility] Comment on above: Performed By: #### L 100.0100, L500.4050 ####[facility] [address] [place], [address] Bilirubin [Mass/Vol] 0.70 mg/dL Normal 0.20-1.00 [facility] Comment on above: Result Comment: For patients on eltrombopag therapy, use of Dimension [place] TBIL is not recommended. Performed By: #### L 100.0100, L500.4050 ####[facility] [address] [place], [address] BUN/CRE 8.4 RATIO Low 10-20 [facility] Comment on above: Performed By: #### L 100.0100, L500.4050 ####[facility] [address] [place], [address] CA,Total 9.1 mg/dL Normal 8.5-10.1 [facility] Comment on above: Performed By: #### L 100.0100, L500.4050 ####[facility] [address] [place], [address] Chloride [Moles/Vol] 101 mmol/L Normal 98-107 [facility] Comment on above: Performed By: #### L 100.0100, L500.4050 ####[facility] [address] [place], [address] CO2 [Moles/Vol] 28.0 mmol/L Normal 21.0-32.0 [facility] Comment on above: Performed By: #### L 100.0100, L500.4050 ####[facility] [address] [place], [address] Creatinine [Mass/Vol] 1.19 mg/dL Normal 0.70-1.30 [facility] Comment on above: Result Comment: The validity of the calculated GFR GFRAA in patients over 70 years has not been determined. Clinical correlation is essential. Performed By: #### L 100.0100, L500.4050 ####[facility] [address] [place], [address] EST GFR - AA 77 mL/min Normal >60 [facility] Comment on above: Result Comment: Afri can Spanish GFR Calc Performed By: #### L 100.0100, L500.4050 ####[facility] [address] [place], [address] GAP 6 Normal 5-15 [facility] Comment on above: Performed By: #### L 100.0100, L500.4050 ####[facility] [address] [place], [address] GFR/1.73 sq M.predicted among non-blacks MDRD (S/P/Bld) [Vol rate/Area] 63 mL/min/{1.73_m2} Normal >60 [facility] Comment on above: Result Comment: Non- GFR Calc Performed By: #### L 100.0100, L500.4050 ####[facility] [address] [place], [address] Globulin (S) [Mass/Vol] 3.9 g/dL Normal 2.2-4.2 [facility] Comment on above: Performed By: #### L 100.0100, L500.4050 ####[facility] [address] [place], [address] Glucose [Mass/Vol] 118 mg/dL High 74-106 [facility] Comment on above: Result Comment: Fast ing Glucose result from 100 to 125 mg/dL suggests IMPAIRED HOMEOSTASIS per A.D.A. criteria. Performed By: #### L 100.0100, L500.4050 ####[facility] [address] [place], [address] Potassium [Moles/Vol] 3.8 mmol/L Normal 3.5-5.1 [facility] Comment on above: Performed By: #### L 100.0100, L500.4050 ####[facility] [address] [place], [address] Sodium [Moles/Vol] 136 mmol/L Normal 136-145 [facility] Comment on above: Performed By: #### L 100.0100, L500.4050 ####[facility] [address] [place], [address] T PROT 7.3 g/dL Normal 6.4-8.2 [facility] Comment on above: Performed By: #### L 100.0100, L500.4050 ####[facility] [address] [place], [address] Urea nitrogen [Mass/Vol] 10 mg/dL Normal 7-18 [facility] Comment on above: Performed By: #### L 100.0100, L500.4050 ####[facility] [address] [place], [address] Eosinophil percentageon -0 Eosinophils/100 WBC (Bld) 4.4 % 0-5 [facility] Erythrocyte distribution wid th ratioon 03-31-2024 Erythrocyte distribution width (RBC) [Ratio] 14.7 % High 11.6-14.6 [facility] Erythrocyte distribution wid th standard deviationon 03-31-2024 Erythrocyte distribution width (RBC) [Entitic vol] 46.8 fL High 35.1-43.9 [facility] Estimated glomerular filtrat ion rate (GFR) Americanon 03-31-2024 Estimated GFR (MDRD) Amer 77 mL/min >60 [facility] Comment on above: GFR Calc Glomerular filtration rate ( GFR) estimationon 03-31-2024 Estimated GFR (MDRD) Non-Af Amer 63 mL/min >60 [facility] Comment on above: Non- GFR Calc Glucose measurementon 2024 Glucose [Mass/Vol] 118 mg/dL High 74-106 [facility] Comment on above: Fasting Glucose resu lt from 100 to 125 mg/dL suggests IMPAIRED HOMEOSTASIS per A.D.A. criteria. Hematocrit Auto (Bld) [Volum e fraction]on 03-31-2024 Hematocrit (Bld) [Volume fraction] 40.0 % 40-54 [facility] Hemoglobin measurementon Hemoglobin (Bld) [Mass/Vol] 13.5 g/dL 13.0-16.5 [facility] Immature granulocytes/100 WB C Auto (Bld)on 03-31-2024 Immature granulocytes/100 WBC (Bld) 0.800 % 0.0-0.9 [facility] Comment on above: IG% - Immature Granu locytes (promyelocytes, myelocytes and metamyelocytes) > 1% indicates that a LEFT SHIFT is Present. Laboratory - Chemistry and C hemistry - challengeon 03-31-2024 AST [Catalytic activity/Vol] 18 U/L 15-37 [facility] Lymphocytes Auto (Unsp spec) [#/Vol]on 03-31-2024 Lymphocytes (Bld) [#/Vol] 2.40 10*3/uL 0.83-4.51 [facility] Lymphocytes/100 WBC Auto (Un sp spec)on 03-31-2024 Lymphocytes/100 WBC (Bld) 30.2 % 19-41 [facility] MCV (mean corpuscular volume ) determinationon 03-31-2024 MCV (RBC) [Entitic vol] 87.1 fL 80-94 [facility] Mean corpuscular hemoglobin (MCH) determinationon 03-31-2024 MCH (RBC) [Entitic mass] 29.4 pg 27.0-32.0 [facility] Mean corpuscular hemoglobin concentration (MCHC) determinationon 03-31-2024 MCHC (RBC) [Mass/Vol] 33.8 g/dL 32-36 [facility] Mean platelet volume determi nationon 03-31-2024 Platelet mean volume (Bld) [Entitic vol] 10.3 fL 6.2-12.0 [facility] Monocyte percentageon 2024 Monocytes/100 WBC (Bld) 11.8 % High 0-10 [facility] Neutrophil percentageon Neutrophils/100 WBC (Bld) 52.0 % 47-70 [facility] Nucleated red blood cell per centageon 03-31-2024 Nucleated RBC/100 WBC (Bld) [Ratio] 0 % 0-5 [facility] Platelet counton 03-31-2024 Platelets (Bld) [#/Vol] 157 10*3/uL 150-450 [facility] Potassium measurementon Potassium [Moles/Vol] 3.8 mmol/L 3.5-5.1 [facility] RBC Auto (Bld) [#/Vol]on RBC (Bld) [#/Vol] 4.59 10*6/uL Low 4.6-6.2 [facility] Serum anion gap measuremento n 03-31-2024 Anion gap [Moles/Vol] 6 mmol/L 5-15 [facility] Serum globulin measurementon 03-31-2024 Globulin (S) [Mass/Vol] 3.9 g/dL 2.2-4.2 [facility] Serum or plasma alanine haynes otransferase (ALT) measurementon 03-31-2024 ALT [Catalytic activity/Vol] 17 U/L 16-61 [facility] Serum or plasma albumin scottie urement (mass/volume)on 03-31-2024 Albumin [Mass/Vol] 3.4 g/dL 3.2-5.0 [facility] Serum or plasma alkaline megan sphatase measurementon 03-31-2024 ALP [Catalytic activity/Vol] 86 U/L 45-117 [facility] Serum or plasma calcium scottie urement (mass/volume)on 03-31-2024 Calcium [Mass/Vol] 9.1 mg/dL 8.5-10.1 [facility] Serum or plasma creatinine m easurement (mass/volume)on 03-31-2024 Creatinine [Mass/Vol] 1.19 mg/dL 0.70-1.30 [facility] Comment on above: The validity of the calculated GFR & GFRAA in patients over 70 years has not been determined. Clinical correlation is essential. Serum or plasma urea nitroge n measurement (mass/volume)on 03-31-2024 Urea nitrogen [Mass/Vol] 10 mg/dL 7-18 [facility] Sodium levelon 03-31-2024 Sodium [Moles/Vol] 136 mmol/L 136-145 [facility] Total proteinon 03-31-2024 Protein [Mass/Vol] 7.3 g/dL 6.4-8.2 [facility] White blood cell (WBC) count on 03-31-2024 WBC (Bld) [#/Vol] 8.0 10*3/uL 4.4-11.0 [facility] Carotid Duplex Ultrasoundon 03-30-2024 Carotid Duplex Ultrasound [facility] [address] [place] [address] Carotid Duplex Ultrasound 03/30/24812 MR#: [id number] Acct: [id number] Name: PATRICE VERGARA Rep #: [id number] : 1950 73 From: Bj Hyaden MD Attending Dr: Dr. Bernard Bullock MD Status: RE G CLI Ordering Dr: Bernard Bullock MD Date: 03/30/24 Location: [facility] Sex: M C Admitted: Reason For Study: Bilateral Carotid Bruit Rt. Velocities/BP Lt. Velocities/BP Prox CCA 68.6/13.8 cm/sec. Prox CCA 81.8/20.4 cm/sec. Mid CCA 58.2/16.6 cm/sec. Mid CCA 69.5/23.2 cm/sec. Dist CCA 47.8/14.7 cm/sec. Dist CCA 56.3/15.7 cm/sec. Prox ICA 84.6/19.5 cm/sec. Prox ICA 41.2/16.6 cm/sec. Mid ICA 54.8/16.0 cm/sec. Mid ICA 46.4/16.1 cm/sec. Dist ICA 55.4/18.5 cm/sec. Dist ICA 68.7/23.0 cm/sec. Rt. ICA/CCA = 1.5. Lt. ICA/CCA = 1.0. Prox ECA 49.7/7.2 cm/sec. Prox ECA 206.3/22.3 cm/sec. Rt. Vert. 38.6/14.1 cm/sec. Lt. Vert. 38.4/12.8 cm/sec. Right Extracranial There is intimal thickening but no significant atherosclerotic plaque noted in the right common carotid artery. There is heterogeneous, irregular atherosclerotic plaque noted in the right internal carotid artery. There is heterogeneous, irregular atherosclerotic plaque noted in the right external carotid artery. Antegrade flow is noted in the right vertebral artery. Left Extracranial There is intimal thickening but no significant atherosclerotic plaque noted in the left common carotid artery. There is heterogeneous, irregular atherosclerotic plaque noted in the left internal carotid artery. The atherosclerotic plaque causes acoustic shadowing. There is heterogeneous, irregular atherosclerotic plaque noted in the left external carotid artery. Antegrade flow is noted in the left vertebral artery. Procedure Carotid Duplex 54825. This is a Carotid Duplex examination using B-mode, color flow and specral Doppler. The exam was diagnostic. Exam performed in department. VL/Carotid Duplex Ultrasound Interpretation Summary Mild (<50%) stenosis right extracranial internal carotid. Mild (<50%) stenosis left extracranial internal carotid. Patent and antegrade vertebrals bilaterally. Ordering Physician: Bernard Bullock Referring Physician: Beulah Catherine Performed By: Mane Friedman, [facility] 03/30/24 162 Date Bj Hayden MD CC: Dr. Beulah Catherine DO; Dr. 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: Signed Normal [facility] Office Visiton 03-30-2024 Follow-up visit [id number] Jorge Alberto Vergara 1950 M Date Provider Department Center 03/30/2024 [id number] [facility] VIRGILIO [facility] 95 Ar Family History Problem Relation Age of Onset Diabetes Mother Hypertension Mother Coronary artery disease Mother Breast cancer Sister Diabetes Sister Diabetes Brother Cardiomyopathy Brother Coronary artery disease Brother Family Status - Relation Status Age at Mother Sister Brother Level of Service:20300 AL OFFICE/OP CONSLTJ NEW/EST PT HIGH MDM 55 MINUTES Reason for Visit and Comments: Cardiac Valve Problem [1334] New Patient [542] - Heart Valve Clinic [facility] Follow-up visit [id number] Jorge Alberto Vergara 1950 M Date Provider Department Center 03/30/2024 [id number] KOO [facility] VIRGILIO [facility] 95 Ar Family History Problem Relation Age of Onset Diabetes Mother Hypertension Mother Coronary artery disease Mother Breast cancer Sister Diabetes Sister Diabetes Brother Cardiomyopathy Brother Coronary artery disease Brother Family Status - Relation Status Age at Mother Sister Brother Level of Service:00687 AL OFFICE/OUTPATIENT NEW HIGH MDM 60 MINUTES Reason for Visit and Comments: Cardiac Valve Problem [1334] New Patient [542] - Heart Valve Clinic [facility] Progress Noteon 03-30-2024 Progress Note [facility]: Cardiothoracic Surgery Multidisciplinary Heart Valve Clinic Date: 03/30/24 Patient:Patrice Vergara 1950 73 y.o. male [id number] Subjective: HPI: Patrice Vergara 73 [address] Bullock is being evaluated for aortic valve stenosis. Echocardiogram completed on 12/25/2023 showed moderate to severe aortic valve stenosis with peak/mean gradients 60/34 mm Hg. Per note, patient with past medical history pertinent for pulmonary fibrosis, COPD, CAD with PCI in 2011, HTN, hyperlipidemia. Patient had office visit with marine technician Dr. Bullock on 03/01/24 to discuss echo results and progression of aortic valve stenosis. At that appointment pt was noted to have carotid bruits bilaterally, a grade 3/6 harsh systolic murmur, and reported that he had recently begun having shortness of breath and light headedness with activity. Echo completed on 12/25/23 showed LVEF 65%, mild to moderate eccentric mitral valve insufficiency, mild tricuspid valve insufficiency, mild focal aortic valve calcification, mild aortic valve insufficiency, and moderate to severe aortic valve stenosis with peak/mean gradients 60/34 mmHg. Medical History Past Medical History: Diagnosis Date Aortic stenosis COPD (chronic obstructive pulmonary disease) (HCC) Coronary artery disease Diverticulitis Fibromyalgia GERD (gastroesophageal reflux disease) Heart valve disease Hyperlipidemia Hypertension Neuropathy Pulmonary fibrosis (HCC) Renal artery stenosis (HCC) Restless leg syndrome Sleep apnea wears CPAP Blood thinner - Plavix Transthoracic Echocardiogram 12/25/23 Review of Systems Constitutional: Negative for activity change, chills, diaphoresis, fatigue and fever. HENT: Negative for nosebleeds and trouble swallowing. Eyes: Negative for discharge and visual disturbance. Respiratory: Positive for shortness of breath (on exertion; worsening last 6 months). Negative for apnea, cough, chest tightness and wheezing. Cardiovascular: Positive for leg swelling (bilateral ankle edema). Negative for chest pain and palpitations. Gastrointestinal: Negative for abdominal distention, abdominal pain, blood in stool, diarrhea, nausea and vomiting. Endocrine: Negative for cold intolerance and heat intolerance. Genitourinary: Negative for hematuria. Musculoskeletal: Negative for gait problem and myalgias. Skin: Negative for color change and rash. Neurological: Positive for dizziness. Negative for seizures, syncope, facial asymmetry, speech difficulty, weakness, light-headedness, numbness and headaches. Hematological: Does not bruise/bleed easily. Psychiatric/Behaviora l: Negative for dysphoric mood. Allergies: Codeine and Lisinopril Past Medical History: has a past medical history of Aortic stenosis, COPD (chronic obstructive pulmonary disease) ([facility]), Coronary artery disease, Diverticulitis, Fibromyalgia, GERD (gastroesophageal reflux disease), Heart valve disease, Hyperlipidemia, Hypertension, Neuropathy, Pulmonary fibrosis (HCC), Renal artery stenosis (HCC), Restless leg syndrome, and Sleep apnea. Past Surgical History: has a past surgical history that includes Coronary stent placement (03/2011); Back surgery; and Renal artery stent (2011). Social History: reports that he has quit smoking. His smoking use included cigarettes. He does not have any smokeless tobacco history on file. He reports that he does not currently use alcohol. He reports that he does not currently use drugs. Family History: family history includes Breast cancer in his sister; Cardiomyopathy in his brother; Coronary artery disease in his brother and mother; Diabetes in his brother, mother, and sister; Hypertension in his mother. Medications: Prior to Admission medications Medication Sig Start Date End Date Taking? Authorizing Provider amLODIPine (Norvasc) 5 MG tablet Take 5 mg by mouth daily. 01/22/24 Historical Provider, aspirin 325 MG tablet Take 325 mg by mouth daily. Historical Provider, atorvastatin (Lipitor) 40 MG tablet Take 40 mg by mouth daily. 12/23/23 Historical Provider, carvedilol (Coreg) 25 MG tablet Take 12.5 mg by mouth 2 times daily (with meals). 02/07/24 Historical Provider, clopidogrel (Plavix) 75 MG tablet Take 75 mg by mouth daily. 03/02/24 Historical Provider, gabapentin (Neurontin) 400 MG capsule Take 800 mg by mouth 2 times daily. 02/23/24 Historical Provider, isosorbide mononitrate ER (Imdur) 30 MG 24 hr tablet Take 30 mg by mouth daily. 02/02/24 Historical Provider, nitroglycerin (Nitrostat) 0.[address] 0.4 mg under the tongue every 5 minutes as needed for chest pain. Historical Provider, omeprazole (PriLOSEC) [address] capsule Take 40 mg by mouth every morning (before breakfast). 02/12/24 Historical Provider, Spiriva Respimat 2.5 MCG/ACT inhaler Inhale 2 puffs daily. 12/08/23 Historical Provider, traMADol (Ultram) 50 (more content not included)... Normal [facility] Progress Note [facility] CARDIOLOG[facility] - [address] [address] Dept: [phone] Dept Visit type: New : 1950 Reason for Visit: Cardiac Valve Problem and New Patient (Heart [facility]ve Clinic) Assessment and Plan 1. Essential hypertension - ECG 12 lead - CLINIC PERFORMED 2. Nonrheumatic aortic valve stenosis - CBC auto differential - Comprehensive metabolic panel - Case Request Time Study Engineer: Left and right heart cath / coronary angiography This is a very pleasant 73 y.o. male with severe and symptomatic aortic stenosis. he is likely in need of aortic valve replacement. Will get a cath to evaluate for concomitant coronary dsiease, Will also get a CTA for anatomic planning. If favorable anatomy for transfemoral TAVR, will likely proceed with TAVR. This decision was made after multidisciplinary discussion, using a shared decision making strategy. CT surgery also saw patient to aide in discussion. It was a pleasure seeing your patient in the office today. Please do not hesitate to call me with any questions. Follow up for Recheck after cath and CTA. Subjective HPI Patrice Vergara is a very pleasant 73 y.o. male who is here for evaluation of his aortic valve disease. his symptoms include progressive dyspnea on exertion and lower extremity edema. . his most recent echo shows likely severe aortic stenosis with mean gradient 34mmHg, peak velocity 3.9m/s, DI 0.27, SHEKHAR 0.9cm2. Review of Systems Constitutional: Negative for activity change, chills, diaphoresis, fatigue and fever. HENT: Negative for nosebleeds and trouble swallowing. Eyes: Negative for discharge and visual disturbance. Respiratory: Positive for shortness of breath (on exertion; worsening in August/ September). Negative for apnea, cough, chest tightness and wheezing. Cardiovascular: Positive for leg swelling (bilateral leg edema). Negative for chest pain and palpitations. Gastrointestinal: Negative for abdominal distention, abdominal pain, blood in stool, diarrhea, nausea and vomiting. Endocrine: Negative for cold intolerance and heat intolerance. Genitourinary: Negative for hematuria. Musculoskeletal: Negative for gait problem and myalgias. Skin: Negative for color change and rash. Neurological: Positive for dizziness. Negative for seizures, syncope, facial asymmetry, speech difficulty, weakness, light-headedness, numbness and headaches. Hematological: Does not bruise/bleed easily. Psychiatric/Behaviora l: Negative for dysphoric mood. Allergies Allergen Reactions Codeine Shortness of breath Lisinopril Shortness of breath Outpatient Medications Prior to Visit Medication Sig Dispense Refill amLODIPine (Norvasc) 5 MG tablet Take 5 mg by mouth daily. aspirin 325 MG tablet Take 325 mg by mouth daily. atorvastatin (Lipitor) 40 MG tablet Take 40 mg by mouth daily. carvedilol (Coreg) 25 MG tablet Take 12.5 mg by mouth 2 times daily (with meals). clopidogrel (Plavix) 75 MG tablet Take 75 mg by mouth daily. gabapentin (Neurontin) 400 MG capsule Take 800 mg by mouth 2 times daily. isosorbide mononitrate ER (Imdur) 30 MG 24 hr tablet Take 30 mg by mouth daily. nitroglycerin (Nitrostat) 0.[address] 0.4 mg under the tongue every 5 minutes as needed for chest pain. omeprazole (PriLOSEC) [address] capsule Take 40 mg by mouth every morning (before breakfast). Spiriva Respimat 2.5 MCG/ACT inhaler Inhale 2 puffs daily. traMADol (Ultram) 50 MG tablet Take 50 mg by mouth every 6 hours as needed. No facility-administered medications prior to visit. Past Medical History: Diagnosis Date Aortic stenosis COPD (chronic obstructive pulmonary disease) (HCC) Coronary artery disease Diverticulitis Fibromyalgia GERD (gastroesophageal reflux disease) Heart valve disease Hyperlipidemia Hypertension Neuropathy Pulmonary fibrosis (HCC) Renal artery stenosis (HCC) Restless leg syndrome Sleep apnea wears CPAP Social History Tobacco Use Smoking status: Former Types: Cigarettes Smokeless tobacco: Not on file Substance Use Topics Alcohol use: Not Currently Past Surgical History: Procedure Laterality Date BACK SURGERY 05/2023 CORONARY STENT PLACEMENT 03/2011 ALIA circumflex RENAL ARTERY STENT 03/2011 Dr. Chilel Family History Problem Relation Name Age of Onset Diabetes Mother Hypertension Mother Coronary artery disease Mother Breast cancer Sister Diabetes Sister Diabetes Brother Cardiomyopathy Brother Coronary artery disease Brother Objective Vitals: 03/30/24 1241 03/30/24 1257 BP: (!) 154/80 138/82 BP Location: Left arm Right arm Patient Position: Sitting Sitting BP Cuff Size: Adult Adult Pulse: 51 SpO2: 92% Weight: 173 lb 3.2 oz (78.6 kg) Height: 5' 10 (1.778 m) Physical Exam Constitutional: General: He is not in acute distress. Appearance: He is not diaphoretic. HENT: Head: Normocephalic. Nose: Nose normal. Mouth/T (more content not included)... Normal [facility] Low Dose CT Lung Screeningon 03-25-[address] Lung Screening [facility] [address] [place], [place] [id number] [address] Dose [address] Lung Screening MR#: [id number] Acct: [id number] Name: PATRICE VERGARA Rep #: [id number] : 1950 M 73 From: Andrea Hannah MD PCP: Dr. Beulah Catherine, DO Status: REG CLI Study: Low Dose CT Lung Screening Date of Exam: 03/25 Exam# [id number] Ordering Dr: Honey Monge NP [facility]-C [id number] STUDY: LOW DOSE CT LUNG CANCER SCREENING REASON FOR EXAM: Male, 73 years old. 1 1/2 pack per day smoker x20 years, quit in 1999 RADIATION DOSAGE (If Supplied By Facility): CTDIvol = ( 3.02 ) mGy, DLP = ( 93.27 ) mGycm TECHNIQUE: No contrast was administered. Low dose technique was utilized (average mAS-38 and kVp 120). 1.25 mm axial source images with a slice interval of 1.25-mm were reconstructed in lung windows. 2.5 mm axial source images with a slice interval of 2.5-mm were reconstructed in lung windows. 5.0 mm axial source images with a slice interval of 5.0-mm were reconstructed in soft tissue windows. COMPARISON: 2014 FINDINGS: Lung windows show underlying emphysema with bleb formation throughout both lung torres and honeycombing in the periphery of both lung torres. There are chronic interstitial changes in both lung torres with bilateral bronchiectatic changes. There is no organized infiltrate, effusion or suspicious noncalcified mass or nodule. Limited soft tissue windows show normal-appearing thyroid gland. No suspicious axillary, mediastinal or perihilar adenopathy. There are calcified coronary vessels. Bony structures show degenerative change CT/Low Dose CT Lung Screening IMPRESSION: Lung-RADS category 2 - Continue annual screening with LDCT in 12 months. IMPORTANT NOTES FOR USE: ACR Lung-RADS Version 1.1 Assessment Categories Release Date: 2018 Category: Coded 0-4 bases on nodule(s) with highest degree of suspicion. Negative screen is defined as categories 1 and 2; a positive screen is defined as categories 3 and 4. Category 3 and 4A nodules that are unchanged on interval CT should be coded as category 2, and individuals returned to screening in 12 months. Category 4X: Category 3 or 4 nodules with additional imaging findings that increase the suspicion of lung cancer, such as spiculation, GGN that doubles in size in 1 year, enlarged lymph notes, etc. Category Modifiers: S (significant finding unrelated to lung cancer) Electronically Signed: Nathanael Hannah MD at 15:30 EST , CC: KIMBER Monge; Dr. Beulah Catherine DO Girls Tennis Coach: Signed Normal [facility] Progress Noteon 03-22-2024 Progress Note Patrice Vergara 73 [address] by Dr[address] Bullock is being evaluated for aortic valve stenosis. Echocardiogram completed on 12/25/2023 showed moderate to severe aortic valve stenosis with peak/mean gradients 60/34 mm Hg. Per note, patient with past medical history pertinent for pulmonary fibrosis, COPD, CAD with PCI in 2011, HTN, hyperlipidemia. Patient had office visit with marine technician Dr. Bullock on 03/01/24 to discuss echo results and progression of aortic valve stenosis. At that appointment pt was noted to have carotid bruits bilaterally, a grade 3/6 harsh systolic murmur, and reported that he had recently begun having shortness of breath and light headedness with activity. Echo completed on 12/25/23 showed LVEF 65%, mild to moderate eccentric mitral valve insufficiency, mild tricuspid valve insufficiency, mild focal aortic valve calcification, mild aortic valve insufficiency, and moderate to severe aortic valve stenosis with peak/mean gradients 60/34 mmHg. Past Medical History: Diagnosis Date Aortic stenosis COPD (chronic obstructive pulmonary disease) (HCC) Coronary artery disease Diverticulitis Fibromyalgia GERD (gastroesophageal reflux disease) Heart valve disease Hyperlipidemia Hypertension Neuropathy Pulmonary fibrosis (HCC) Renal artery stenosis (HCC) Restless leg syndrome Sleep apnea wears CPAP Blood thinner - Plavix Transthoracic Echocardiogram 12/25/23 Normal [facility] 6 Minute Walk Teston 12-23-2 024 6 Minute Walk Test y [facility] [address] [place] [address] MR#: [id number] Acct: [id number] Name: PATRICE VERGARA Rep #: [id number] : 1950 73 From: Manuel Dominguez DO Referring Dr: Honey Monge NP [facility] Status: REG CLI Location: PSN Date: Sex: M C PSN 6 Minute Walk Test 6 Minute Walk Test 6 Minute Walk Test: 6 Minute Walk Test PSN:6-Minute Walk Test Start: 03/12/24 12:35 Freq: Status: Active Protocol: [id number] Document 03/12/24 12:30 EW (Rec: 03/12/24 12:41 EW [id number]) 6 Minute Walk Test Date Performed 03/12/24 Time Performed 12:30 Height 5 ft 11 in Weight: 175 lb Weight in Pounds 175.[address]: Honey Monge [facility] Assistive device used: None Pre-test Oxygen Delivery Method Room Air Pulse Ox (%) 95 Pulse Rate (60-100 beats/min) 60 Dyspnea Cynthia Scale (0-10) 1 Exertion Cynthia Scale (6-20) 6 1st minute Oxygen Delivery Method Room Air Pulse Ox (%) 95 Pulse Rate (60-100 beats/min) 75 2nd minute Oxygen Delivery Method Room Air Pulse Ox (%) 93 Pulse Rate (60-100 beats/min) 75 3rd minute Oxygen Delivery Method Room Air Pulse Ox (%) 93 Pulse Rate (60-100 beats/min) 75 4th minute Oxygen Delivery Method Room Air Pulse Ox (%) 92 Pulse Rate (60-100 beats/min) 74 5th minute Oxygen Delivery Method Room Air Pulse Ox (%) 91 Pulse Rate (60-100 beats/min) 77 6th minute Oxygen Delivery Method Room Air Pulse Ox (%) 92 Pulse Rate (60-100 beats/min) 77 Post-test Oxygen Delivery Method Room Air Pulse Ox (%) 93 Pulse Rate (60-100 beats/min) 69 Dyspnea Cynthia Scale (0-10) 3 Exertion Cynthia Scale (6-20) 14 Full Laps Walked 19 Partial Lap, Number of Tiles Walked 0 Total Distance Walked (ft) 1121 Interpretation Interpretation: The patient ambulated 1121 feet over the course of 6 minutes beginning on room air without assistive devices. Pretesting oxygen saturation was noted to be 95% on room air. With ambulation, the emiliano oxygen saturation was 91%. There was no significant exertional oxygen desaturation. Recommendations Recommendations: There is no indication for the use of supplemental oxygen at this time. 03/15/24 1103 Date Manuel Dominguez DO CC: Date Dictated: 03/15/24 1102 Date Transcribed: 03/15/241101 Girls Tennis Coach: Dr. Manuel Dominguez DO Signed Normal [facility] 36on 03-11-2024 36 [facility] packet mailed Normal [facility] 36on 03-10-2024 36 Added to [facility] schedule. I will mail packet when I get back to my desk. Normal [facility] Pulmonary Visit Reporton Pulmonary Visit Report [facility] [place] [address] [place] [address] OFFICE VISIT Date of Service: 03/08/24 MR#: [id number] Acct: [id number] Name: PATRICE VERGARA Rep #: [id number] : 1950 Provider: KIMBER Monge Age/Sex: 73/M Location: [facility] [place] [place].[facility] Status: Signed with Addenda ADDENDUM by Meyrl Raines on 03/23/24 at 1125 Office Procedure Documentation entered by Meryl Raines 03/23/24 11:25: Smoking Cessation Smoking Cessation 03/08/24. Encourage complete smoking cessation. The patient is appropriate for LDCT, ordered accordingly. Follow-up in 1 month to discuss test results. Time Spent 3-10 minutes: Yes Date cc: Dr. Beulah Catherine DO * Signed Assessment and Plan Assessment and Plan (1) Shortness of breath on exertion: Status: Chronic Plan: Deteriorated. The patient reports increasing shortness of breath on exertion. If you recall, he was previously tried on Stiolto and Breztri. He did not think either of those medications was as effective as Spiriva. He would like to try Trelegy, I am open to this. He was provided with a sample and instructed to use 1 puff daily and follow by rinsing his mouth out. He conveys understanding. He is already had his dose of Spiriva today so therefore he will start Trelegy tomorrow. Repeating his pulmonary function test and walking oximetry. Return to the office in 1 month to discuss test results. (2) Smoking greater than 20 pack years: Status: Chronic Comment: smoking daily Plan: Encourage complete smoking cessation. The patient is appropriate for LDCT, ordered accordingly. Follow-up in 1 month to discuss test results. (3) Obstructive sleep apnea: Status: Chronic Plan: He is using and benefiting from Pap therapy. No indication for titration study at this time. Contact the office for any new or worsening symptoms in the meantime. (4) Nonrheumatic aortic (valve) stenosis: Status: Chronic Plan: Complicates exam, plan, care and prognosis. Unclear if the shortness of breath on exertion is related to known valve problems with audible murmur, or if this is related to disease progression of his COPD. Will perform some pulmonary testing to determine etiology and give input back to cardiology. The patient does have an office visit with a new marine technician next month to consider valve replacement surgery. Orders: Orders Low Dose CT Lung Screening Today F17.200 - Nicotine dependence, unspecified, uncomplicated, F17.210 - Nicotine dependence, cigarettes, uncomplicated PFT Complete: DLCO, Spirometry b/a bronchodilators, lung volumes 03/10/24 F17.210 - Nicotine dependence, cigarettes, uncomplicated Simple Pulmonary Exercise Test 03/12/24 F17.210 - Nicotine dependence, cigarettes, uncomplicated Medications: New fluticasone-umeclidin -vilanter 200-62.5-25 mcg (Trelegy Ellipta) 1 inh inhalation DAILY 60 ea 11RF Discontinued tiotropium bromide 2.5 mcg/actuation (Spiriva Respimat) administer at approximately the same time(s) each day Discontinued Reason: Order Changed 2 inhalations inhalation QDAY 1 ea 6RF Plan Details Follow Up: 1 Month (LMR) HPI 3 M FU Chief Complaint: Shortness of breath on exertion HPI Comments Details: This patient presents to the office today for follow-up of his COPD with obstructive sleep apnea. He is ambulatory and currently on room air. He is accompanied today by his daughter. He has not recently been seen in the ED or urgent care for any respiratory illness. He has not required any antibiotics or prednisone for any breathing problems. He is compliant with the use of Spiriva 2 puffs once daily. He has not recently used his albuterol rescue inhaler. The patient saw an advertisement for Trelegy and would like to try it. He is not smoking cigarettes, if you recall, he quit smoking cigarettes in the year 1999. However, he is using marijuana daily. He smokes at least once daily. He does report shortness of breath on exertion. He believes that shortness of breath has progressed over the past 6 months. He has an occasional nonproductive cough. He feels as though he has chest congestion and phlegm that he should be able to expectorate but is not able to. He denies any wheezing, chest tightness or palpitations. He has not had any fever, chills or body aches. He denies morning headaches. He is not having excessive nocturia. He admits to occasional dry mouth. He is not requiring naps. He is not having excessive nocturia. He continues to smoke marijuana daily. He is no longer smoking cigarettes. Compliance report for the past 30 days shows 100 % compliance with an average use of 6 hours and 9 minutes per night. Current setting is BiPAP 11/7 cmH2O with residual AHI of 10.8 events per hour. Leaks c (more content not included)... Normal [facility] 36on 03-04-2024 36 Patient sched 03/30/2024 at 1:00. Not sure of CTS yet. I emailed Eleanor. Made yellow chart in the meantime. [facility] 36 Pt returned call. Pt states he will be available anytime today. Please advise [facility] Cardiology Visit Reporton Cardiology Visit Report [facility] [address] [place] [address] OFFICE VISIT Date of Service: 03/01/24 MR#: [id number] Acct: [id number] Name: PATRICE VERGARA Rep #: [id number] : 1950 Provider: Dr. Bernard gilliland MD Age/Sex: 73/M Location: [facility] [place] [place].[facility] Status: Signed HPI HPI History of Present Illness Details: Patient is a pleasant 73-year-old white male that comes in with his daughter who works in a pulmonary department here at [facility] for monitoring of his cardiovascular status. The patient reports that he is done fairly well in his home environment but just recently has noticed in the past month that he is getting short of breath with activity he was trying to blame this on a change in his pulmonary medications. However when he had pressed him he explains to me that he gets short of breath with trying to do things and actually gets lightheaded with activities at times as well. He denies any chest tightness or squeezing he denies any symptoms that remind him of when he had the stent placed in his circumflex back in 2011. At that time it was just a severe fatigue syndrome. He never really had chest pains. The patient also had renal artery stenting done in [address] Bety Blackburn. The patient also has a history of pulmonary fibrosis and is monitored to the pulmonary department here at [facility]. He is due to be seen tomorrow in their office. Patient had an echocardiogram done December 25, 2023 which showed normal LV systolic function EF of 65% the patient's peak gradient had increased to 60 mm across his aortic valve and his mean gradient was 34. The patient had a stress test done January 13, 2023 which was pharmacologic nuclear which showed no evidence of ischemia. He had carotid duplex done September 2021 which showed less than 50% stenosis bilaterally. The patient does have a history of carotid bruits bilaterally. This is probably referred aortic stenosis murmur. The patient had originally been referred to [facility] by the primary service but his insurance is no longer excepted at [facility]. He is now here for reevaluation and subsequent recommendations. The patient did tolerate back surgery in April 2023 without any significant issues. But his breathing issues have surfaced since that point in time as well as the exertional lightheadedness. Intake Vital Signs 12/03/23 08:07 03/01/24 10:47 Height 5 ft 10 in 5 ft 10 in Weight: 180 lb BMI 25.8 BP 155/71 H Blood Pressure Location Lt brachial Position Sitting Respiration 18 Pulse 55 L Pulse Source Monitor Pulse Oximetry (%) 95 Oxygen Delivery Method room air Intake Visit Reasons: VALVE ISSUES/ OK ANDRY SLOAN Speech Pathologist Required: No Accompanied by: Daughter Is patient in pain?: No Allergies codeine Allergy (Verified 03/01/24 10:48) Shortness of breath lisinopril Allergy (Verified 03/01/24 10:48) Shortness of breath Medications ???Medication ???Instructions ???Recorded ???Confirmed ???Type aspirin 325 mg tablet 325 mg PO DAILY@0800 [facility] 11/03/14 03/01/24 Rx #30 tabs omeprazole 40 mg capsule,delayed 40 mg PO DAILY Indigestion 04/01/22 03/01/24 History release nitroglycerin 0.4 mg sublingual 0.4 mg sublingual Q5M PRN Chest 12/05/22 03/01/24 Rx tablet Pain #25 tabs atorvastatin 40 mg tablet 40 mg PO QDAY HYPERLIPIDEMIA 04/23/23 03/01/24 History gabapentin 400 mg capsule 800 mg PO BID PAIN 04/23/23 03/01/24 History sennosides 8.6 mg-docusate sodium 2 tab PO BID PRN constipation 7 05/15/23 03/01/24 Rx 50 mg tablet (Stool days #28 tabs Softener-Stimulant Laxative) tramadol 50 mg tablet 50 mg PO Q6 PRN 07/11/23 03/01/24 History amlodipine 5 mg tablet 5 mg PO DAILY HYPERTENSION #90 tabs 07/22/23 03/01/24 Rx clopidogrel 75 mg tablet 75 mg PO DAILY BLOOD THINNER #90 09/04/23 03/01/24 Rx tabs isosorbide mononitrate 30 mg 30 mg PO DAILY HYPERTENSION #90 11/07/23 03/01/24 Rx tablet,extended release 24 hr tabs carvedilol 25 mg tablet 12.5 mg (1/2 x 25 mg) PO BID 11/10/23 03/01/24 Rx HYPERTENSION #180 tabs tiotropium bromide 2.5 2 inh inhalation QDAY #1 ea 12/09/23 03/01/24 Rx mcg/actuation mist for inhalation (Spiriva Respimat) Ejection fraction %: 65 Have you fallen in the past year?: No PFSH Medical History (Updated 03/01/24 @ 11:[address] Bernard Bullock MD) Loss of hearing No natural teeth Hepatitis High cholesterol Injury of back History of hiatal hernia Sleep apnea Leg cramps Chest pain Aortic stenosis Neck fracture Chronic back pain Lumbar pain COVID Carotid atherosclerosis Venous insufficiency Venous ulcer Wears hearing aid Wears glasses Complete edentulism, class III Alcohol use Marijuana use Injury of head and neck Loss of (more content not included)... Normal [facility] Orthopedic Visit Reporton Orthopedic Visit Report [facility] [place] [address] OFFICE VISIT Date of Service: 12/26/23 MR#: [id number] Acct: [id number] Name: PATRICE VERGARA Rep #: [id number] : 1950 Provider: Dr. Amarjit Irving MD Age/Sex: 73/M Location: [facility] [place] [place].[facility] Status: Signed Intake Vital Signs 12/03/23 08:07 Height 5 ft 10 in Intake Visit Reasons: LUMBAR SPINE Allergies codeine Allergy (Verified 12/26/23 08:49) Shortness of breath lisinopril Allergy (Verified 12/26/23 08:49) Shortness of breath Medications ???Medication ???Instructions ???Recorded ???Confirmed ???Type aspirin 325 mg tablet 325 mg PO DAILY@0800 [facility] 11/03/14 12/26/23 Rx #30 tabs omeprazole 40 mg capsule,delayed 40 mg PO DAILY Indigestion 04/01/22 12/26/23 History release nitroglycerin 0.4 mg sublingual 0.4 mg sublingual Q5M PRN Chest 12/05/22 12/26/23 Rx tablet Pain #25 tabs atorvastatin 40 mg tablet 40 mg PO QDAY HYPERLIPIDEMIA 04/23/23 12/26/23 History gabapentin 400 mg capsule 800 mg PO BID PAIN 04/23/23 12/26/23 History acetaminophen 500 mg tablet 1,000 mg (2 x 500 mg) PO Q8 7 days 05/15/23 12/26/23 Rx #42 tabs sennosides 8.6 mg-docusate sodium 2 tab PO BID PRN constipation 7 05/15/23 12/26/23 Rx 50 mg tablet (Stool days #28 tabs Softener-Stimulant Laxative) tramadol 50 mg tablet 50 mg PO Q6 PRN 07/11/23 12/26/23 History amlodipine 5 mg tablet 5 mg PO DAILY HYPERTENSION #90 tabs 07/22/23 12/26/23 Rx clopidogrel 75 mg tablet 75 mg PO DAILY BLOOD THINNER #90 09/04/23 12/26/23 Rx tabs isosorbide mononitrate 30 mg 30 mg PO DAILY HYPERTENSION #90 11/07/23 12/26/23 Rx tablet,extended release 24 hr tabs carvedilol 25 mg tablet 12.5 mg (1/2 x 25 mg) PO BID 11/10/23 12/26/23 Rx HYPERTENSION #180 tabs tiotropium bromide 2.5 2 inh inhalation QDAY #1 ea 12/09/23 12/26/23 Rx mcg/actuation mist for inhalation (Spiriva Respimat) Have you fallen in the past year?: No PFSH Medical History Loss of hearing No natural teeth Hepatitis High cholesterol Injury of back History of hiatal hernia Sleep apnea Leg cramps Chest pain Aortic stenosis Neck fracture Chronic back pain Lumbar pain COVID Carotid atherosclerosis Venous insufficiency Venous ulcer Wears hearing aid Wears glasses Complete edentulism, class III Alcohol use Marijuana use Injury of head and neck Loss of consciousness History of diverticulitis Former smoker CPAP (continuous positive airway pressure) dependence History of pain when walking Neuropathy Hypertension History of stress test History of echocardiogram Cardiology follow-up encounter HLD (hyperlipidemia) Renal artery stenosis Bilateral carotid artery stenosis Nonrheumatic aortic (valve) stenosis H/o addiction H/o blood transfusion Heart disease Lung disease Arthritis DJD (degenerative joint disease) Hiatal hernia GERD (gastroesophageal reflux disease) Bilateral carotid bruits Fibromyalgia Back pain Restless legs Peripheral artery disease Atherosclerotic heart disease of [place] coronary artery without angina pectoris Obstructive sleep apnea Right leg weakness Right arm weakness Hepatitis C Chronic obstructive lung disease Benign essential hypertension Acute exacerbation of chronic obstructive airways disease Abdominal pain Surgical History History of coronary artery stent placement History of nasal surgery History of cardiac catheterization Hx of colonoscopy Hx of hemorrhoidectomy Presence of stent in coronary artery ( 03/2011) Postsurgical percutaneous transluminal coronary angioplasty (PTCA) status ( 03/2011) History of stent insertion of renal artery History of back surgery Family History Brother Tonsil cancer Cancer Skin Diabetes Sister Breast cancer Diabetes Mother Diabetes Hypertension CAD (coronary artery disease) Myocardial infarction Brother CAD (coronary artery disease) Myocardial infarction Cardiomyopathy Father Cancer Social History household members: spouse housing: house current occupational status: employed Smoking Status: Former smoker alcohol intake: never substance use type: marijuana and other details: h/o addiction caffeine: Yes what type of physical activity do you participate in: walking frequency: 5-6 times per week seatbelt use: always do you feel safe at home: Yes HPI LUMBAR SPINE Details: This documentation accurately reflects the service provided and the decisions made by me, Dr. Amarjit Irving MD 12/26/23 0846. Part of today???s visit was (more content not included)... Normal [facility] Echo Completeon 12-25-2023 Echo Complete [facility] [address] [place] [address] Echo Complete 12/25/23 1405 MR#: [id number] Acct: [id number] Name: PATRICE VERGARA Rep #: [id number] : 1950 73 From: Andrew Green MD Attending Dr: Dr. Beulah Catherine DO Status: REG CL I Ordering Dr: Beulah Catherine DO Date: 12/25/23 Location: [facility] Sex: M C Admitted: Reason For Study: PUGA, Edema Procedure This was a 2D Doppler, Color Flow transthoracic echocardiogram. Exam performed portable in patient room. Left Ventricle Normal LV size. Left ventricular systolic function is normal. The left ventricular ejection fraction is 65 %. No regional wall motion abnormalities noted. Right Ventricle Normal RV size. Normal systolic function. Atria Normal left atrium. Normal right atrium. Mitral Valve There is mild to moderate mitral annular calcification. Mild-Moderate (1-2+) eccentric mitral valve insufficiency. Tricuspid Valve Normal tricuspid valve. Mild (1+) tricuspid valve insufficiency. Pulmonary artery systolic pressure is 28 mmHg. Aortic Valve Trisinus/trileaflet aortic valve. Mild focal aortic valve calcification. Peak aortic valve gradient 60 mmHg. Mean aortic valve gradient 34 mmHg. Moderate to severe aortic stenosis. Mild (1+) aortic valve insufficiency. Pulmonic Valve Normal pulmonic valve. Great Vessels Normal aortic root. The pulmonary artery is normal size. Inferior vena cava collapse with respiration. Pericardium/Pleural No pericardial effusion. MMode/2D Measurements Calculations LVIDd: 4.2 cm IVSd: 1.3 cm LVOT diam: 2.0 cm LVIDs: 2.6 cm LVPWd: 1.1 cm LVOT area: 3.2 cm2 RVDd: 3.5 cm FS: 39.0 % asc Aorta Diam: 3.6 cm LAV(MOD-bp): 61.5 ml LVAd ap4: 28.3 cm2 LAV(MOD-bp) Indexed: 31.6 ml/m2 LVLd ap4: 8.3 cm LAV(MOD-sp2): 63.5 ml EDV(MOD-sp4): 79.9 ml LAV(MOD-sp4): 57.1 ml EDV(sp4-el): 81.9 ml LVAs ap4: 14.7 cm2 LVLs ap4: 6.7 cm ESV(MOD-sp4): 27.5 ml ESV(sp4-el): 27.4 ml EF(MOD-sp4): 65.5 % EF(sp4-el): 66.6 % LVAd ap2: 28.2 cm2 SV(MOD-sp4): 52.3 ml SV(MOD-sp2): 53.7 ml LVLd ap2: 8.4 cm EDV(MOD-sp2): 83.4 ml EDV(sp2-el): 80.3 ml LVAs ap2: 14.9 cm2 LVLs ap2: 6.7 cm ESV(MOD-sp2): 29.7 ml ESV(sp2-el): 28.1 ml EF(MOD-sp2): 64.4 % SV(sp4-el): 54.5 ml LA dimension(2D): 3.5 cm LA A4 area: 20.3 cm2 RA A4 area: 16.8 cm2 TAPSE: 2.1 cm Time Measurements MV dec time: 0.19 sec Doppler Measurements Calculations MV E max yane: 92.5 cm/sec Lat Peak E' Yane: 7.9 cm/sec Med Peak E' Yane: 7.0 cm/sec MV A max yane: 78.8 cm/sec E/E' lat: 11.8 E/E' med: 13.2 MV E/A: 1.2 Ao V2 max: 386.0 cm/sec AI max yane: 316.3 cm/sec MV dec slope: 485.5 cm/sec2 Ao max P.7 mmHg AI max P.0 mmHg Ao V2 mean: 272.0 cm/sec Ao mean P.6 mmHg AI dec slope: 140.0 cm/sec2 Ao V2 VTI: 107.9 cm AI P1/2t: 661.6 msec AV (velocity ratio): 0.27 SHEKHAR(I,D): 0.86 cm2 SHEKHAR(V,D): 0.89 cm2 LV V1 max: 107.1 cm/sec SV(LVOT): 92.5 ml PA V2 max: 71.1 cm/sec LV V1 max P.6 mmHg PA max PG (full): 1.2 mmHg LV V1 mean P.4 mmHg LV V1 mean: 73.0 cm/sec LV V1 VTI: 28.8 cm TR max yane: 244.7 cm/sec TR max P.9 mmHg ECHO/Echo Complete Interpretation Summary Normal LV size. Left ventricular systolic function is normal. The left ventricular ejection fraction is 65 %. Peak aortic valve gradient 60 mmHg. Mean aortic valve gradient 34 mmHg. Moderate to severe aortic stenosis. Ordering Physician: Beulah Catherine Referring Physician: Beulah Catherine Performed By: Betsy Figueroa RDCS and Student 12/25/23 1629 Date Andrew Green MD CC: Dr. 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 Beulah Catherine, Status: REG CL I Ordering Dr: Beulah Catherine DO Date: 12/25/23 Location: [facility] Sex: M C Admitted: Reason For Study: EDEMA / RIGHT LEFT CFV is compressible, phasic, and INCOMPETENT CFV is compressible, phasic, and INCOMPETENT for greater than 1.0 second. for greater than 1.0 second. FV is compressible, phasic, and INCOMPETENT FV is compressible, phasic, and INCOMPETENT for greater than 1.0 second. for greater than 1.0 second. POP V is compressible, spontaneous, phasic, POP V is compressible, spontaneous, phasic, competent and demonstrates normal competent and demonstrates normal augmentation. augmentation. T/P Trunk is compressible. T/P Trunk is compressible. PTV is compressible. PTV is compressible. RT PerV is compressible. LT PerV is compressible. SFJ is INCOMPETENT and measures 0.57 cm. SFJ is INCOMPETENT and measures 0.59 cm. GSV proximal thigh measures 0.49 x 0.47 cm. GSV proximal thigh measures 0.36 x 0.34 cm. GSV at knee measures 0.57 x 0.58 cm. GSV at knee measures 0.47 x 0.47 cm. GSV INCOMPETENT throughout for greater than GSV INCOMPETENT throughout for greater than 0.5 seconds. 0.5 seconds. SSV proximal calf is competent and measures SSV proximal calf is competent and measures 0.21 x 0.22 cm. 0.19 x 0.19 cm. Perforating Vessel mid calf is INCOMPETENT Perforating Vessel mid/dist thigh is for greater than 0.5 seconds and measures INCOMPETENT for greater than 0.5 seconds and 0.49 cm. measures 0.42 cm Varicosities posterior calf appear to branch Perforating Vessel mid calf is INCOMPETENT from GSV at knee. for greater than 0.5 seconds and measures Procedure 0.44 cm Exam performed in department. Varicosities mid/medial calf appear to branch This is a venous duplex using B-mode, color from perforating vessel at mid calf and GSV flow and spectral Doppler. dist thigh. The exam was diagnostic. VL/Venous Duplex US - Melvin Extrem Interpretation Summary Deep veins of the bilateral lower extremities are patent and compressible segmentally. There is no evidence of bilateral lower extremity deep vein thrombosis. The bilateral great saphenous veins appear patent and compressible segmentally. Positive for reflux in the right common femoral vein, femoral vein, saphenofemoral junction, great saphenous vein, mid calf medicine tech. Positive for reflux in the left common femoral vein, femoral vein, saphenofemoral junction, great saphenous vein, thigh medicine tech and calf medicine tech. Ordering Physician: Beulah Catherine Referring Physician: Beulah Catherine Performed By: Mane Friedman, T 12/25/231717 Date Bj Hayden MD CC: Dr. 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 Beulah Catherine, DO Status: REG CLI Study: Spine Lumbar W/WO Contrast Date of Exam: 11/22 11/14 Exam# [id number] Ordering Dr: Amarjit Irving MD [id number] STUDY: MRI LUMBAR SPINE WITH AND WITHOUT CONTRAST REASON FOR EXAM: Male, 73 years old. pain TECHNIQUE: Standardized fat and water weighted pulse sequences were obtained in the sagittal and axial planes. IV 15ml clariscan was administered for the contrast portion of the examination. COMPARISON: Lumbar spine radiographs November 13, 2023. MRI lumbar spine November 27, 2022. FINDINGS: New posterior interbody fusion rods and pedicular screws L3, L5 and S1. T12-L1: Normal endplates. Normal disc height, hydration and morphology. Normal bilateral facet joints. Normal central canal and bilateral lateral recesses. Normal bilateral intervertebral neural foramina. Normal lumbar lordosis. There is no substantial scoliosis. Normal conus medullaris that terminates at the L1 level. L1-2: Normal endplates. Normal disc height, hydration and morphology. Normal bilateral facet joints. Normal central canal and bilateral lateral recesses. Normal bilateral intervertebral neural foramina. L2-3: Normal endplates. Normal disc height, hydration and morphology. Hypertrophic bilateral facet joints. Mild trefoil type narrowing central canal and bilateral lateral recesses. Moderate narrowing bilateral intervertebral neural foramina. L3-4: Metallic disc spacer. Hypertrophic facets causing moderate narrowing of the neural foramina bilaterally. Central canal patent. L4-5: Normal endplates. Normal disc height, hydration and morphology. Normal bilateral facet joints. Normal central canal and bilateral lateral recesses. Normal bilateral intervertebral neural foramina. Disc spacer. L5-S1: Normal endplates. Normal disc height, hydration and morphology. Hypertrophic bilateral facet joints. Normal central canal and bilateral lateral recesses. Moderate narrowing bilateral intervertebral neural foramina. Disc spacer. Normal visualized sacral ala. Normal visualized paraspinous soft tissue structures. Subcutaneous edema interspinous region at L3-L5. MRI/Spine Lumbar W/WO Contrast IMPRESSION: Interval posterior interbody fusion L3-S1. Multilevel bilateral neural foraminal narrowing. Mild spinal stenosis L2-3. Electronically Signed: Jensen Garza MD at 23:59 EDT , CC: Dr. Amarjit Irving MD; Dr. Beulah Catherine, Girls Tennis Coach: Signed Normal [facility] BNP,B-Type NATRIURETIC PEPTI Radha 12-03-2023 Natriuretic peptide B (Bld) [Mass/Vol] 92.1 pg/mL Normal 0-100 [facility] Comment on above: Performed By: #### L 503.6620, L501.05631, L100.0100, L500.4050, L501.9520 ####[facility] [address] [place], [address] CBC W/Diff, Automatedon 11-22 Absolute Lymph 2.26 X10 3/uL Normal 0.83-4.51 [facility] Comment on above: Performed By: #### L 503.6620, L501.74978, L100.0100, L500.4050, L501.9520 ####[facility] [address] [place], [address] Absolute Neut 3.4 X10 3/uL Normal 2.0-7.7 [facility] Comment on above: Performed By: #### L 503.6620, L501.28817, L100.0100, L500.4050, L501.9520 ####[facility] [address] [place], [address] Basophils/100 WBC (Bld) 0.7 % Normal 0-1 [facility] Comment on above: Performed By: #### L 503.6620, L501.52585, L100.0100, L500.4050, L501.9520 ####[facility] [address] [place], [address] Eosinophils/100 WBC (Bld) 3.9 % Normal 0-5 [facility] Comment on above: Performed By: #### L 503.6620, L501.40662, L100.0100, L500.4050, L501.9520 ####[facility] [address] [place], [address] Erythrocyte distribution width (RBC) [Ratio] 15.1 % High 11.6-14.6 [facility] Comment on above: Performed By: #### L 503.6620, L501.04286, L100.0100, L500.4050, L501.9520 ####[facility] [address] [place], [address] Hematocrit (Bld) [Volume fraction] 38.3 % Low 40-54 [facility] Comment on above: Performed By: #### L 503.6620, L501.89566, L100.0100, L500.4050, L501.9520 ####[facility] [address] [place], [address] Hemoglobin (Bld) [Mass/Vol] 12.3 g/dL Low 13.0-16.5 [facility] Comment on above: Performed By: #### L 503.6620, L501.72200, L100.0100, L500.4050, L501.9520 ####[facility] [address] [place], [address] IG% 1.100 High 0.0-0.9 [facility] Comment on above: Result Comment: IG% - Immature Granulocytes (promyelocytes, myelocytes and metamyelocytes) > 1% indicates that a LEFT SHIFT is Present. Performed By: #### L 503.6620, L501.38546, L100.0100, L500.4050, L501.9520 ####[facility] [address] [place], [address] Lymphocytes/100 WBC (Bld) 32.5 % Normal 19-41 [facility] Comment on above: Performed By: #### L 503.6620, L501.08792, L100.0100, L500.4050, L501.9520 ####[facility] [address] [place], [address] MCH (RBC) [Entitic mass] 29.1 pg Normal 27.0-32.0 [facility] Comment on above: Performed By: #### L 503.6620, L501.73739, L100.0100, L500.4050, L501.9520 ####[facility] [address] [place], [address] MCHC (RBC) [Mass/Vol] 32.1 g/dL Normal 32-36 [facility] Comment on above: Performed By: #### L 503.6620, L501.88080, L100.0100, L500.4050, L501.9520 ####[facility] [address] [place], [address] MCV (RBC) [Entitic vol] 90.8 fL Normal 80-94 [facility] Comment on above: Performed By: #### L 503.6620, L501.45404, L100.0100, L500.4050, L501.9520 ####[facility] [address] [place], [address] Monocytes/100 WBC (Bld) 13.1 % High 0-10 [facility] Comment on above: Performed By: #### L 503.6620, L501.32408, L100.0100, L500.4050, L501.9520 ####[facility] [address] [place], [address] Neutrophils/100 WBC (Bld) 48.7 % Normal 47-70 [facility] Comment on above: Performed By: #### L 503.6620, L501.08529, L100.0100, L500.4050, L501.9520 ####[facility] [address] [place], [address] Nucleated RBC (Bld) [#/Vol] 0 10*3/uL Normal 0-5 [facility] Comment on above: Performed By: #### L 503.6620, L501.08268, L100.0100, L500.4050, L501.9520 ####[facility] [address] [place], [address] Platelet mean volume (Bld) [Entitic vol] 9.6 fL Normal 6.2-12.0 [facility] Comment on above: Performed By: #### L 503.6620, L501.95248, L100.0100, L500.4050, L501.9520 ####[facility] [address] [place], [address] Platelets (Bld) [#/Vol] 272 10*3/uL Normal 150-450 [facility] Comment on above: Performed By: #### L 503.6620, L501.98309, L100.0100, L500.4050, L501.9520 ####[facility] [address] [place], [address] RBC (Bld) [#/Vol] 4.22 10*6/uL Low 4.6-6.2 [facility] Comment on above: Performed By: #### L 503.6620, L501.44696, L100.0100, L500.4050, L501.9520 ####[facility] [address] [place], [address] RDW SD 50.4 fl High 35.1-43.9 [facility] Comment on above: Performed By: #### L 503.6620, L501.89827, L100.0100, L500.4050, L501.9520 ####[facility] [address] [place], [address] WBC (Bld) [#/Vol] 7.0 10*3/uL Normal 4.4-11.0 [facility] Comment on above: Performed By: #### L 503.6620, L501.25057, L100.0100, L500.4050, L501.9520 ####[facility] [address] [place], [address] Comprehensive Metabolic Prof [facility] 12-03-2023 Albumin [Mass/Vol] 3.2 g/dL Normal 3.2-5.0 [facility] Comment on above: Performed By: #### L 503.6620, L501.15002, L100.0100, L500.4050, L501.9520 ####[facility] [address] [place], [address] Albumin/Globulin [Mass ratio] 0.9 {ratio} Normal 0.9-2.4 [facility] Comment on above: Performed By: #### L 503.6620, L501.64629, L100.0100, L500.4050, L501.9520 ####[facility] [address] [place], [address] ALK P 93 U/L Normal 45-117 [facility] Comment on above: Performed By: #### L 503.6620, L501.23179, L100.0100, L500.4050, L501.9520 ####[facility] [address] [place], [address] ALT [Catalytic activity/Vol] 19 U/L Normal 16-61 [facility] Comment on above: Performed By: #### L 503.6620, L501.44024, L100.0100, L500.4050, L501.9520 ####[facility] [address] [place], [address] AST [Catalytic activity/Vol] 19 U/L Normal 15-37 [facility] Comment on above: Performed By: #### L 503.6620, L501.66976, L100.0100, L500.4050, L501.9520 ####[facility] [address] [place], [address] Bilirubin [Mass/Vol] 0.50 mg/dL Normal 0.20-1.00 [facility] Comment on above: Result Comment: For patients on eltrombopag therapy, use of [place] TBIL is not recommended. Performed By: #### L 503.6620, L501.96817, L100.0100, L500.4050, L501.9520 ####[facility] [address] [place], [address] BUN/CRE 5.2 RATIO Low 10-20 [facility] Comment on above: Performed By: #### L 503.6620, L501.76490, L100.0100, L500.4050, L501.9520 ####[facility] [address] [place], [address] CA,Total 9.3 mg/dL Normal 8.5-10.1 [facility] Comment on above: Performed By: #### L 503.6620, L501.92005, L100.0100, L500.4050, L501.9520 ####[facility] [address] [place], [address] Chloride [Moles/Vol] 103 mmol/L Normal 98-107 [facility] Comment on above: Performed By: #### L 503.6620, L501.36674, L100.0100, L500.4050, L501.9520 ####[facility] [address] [place], [address] CO2 [Moles/Vol] 28.0 mmol/L Normal 21.0-32.0 [facility] Comment on above: Performed By: #### L 503.6620, L501.07982, L100.0100, L500.4050, L501.9520 ####[facility] [address] [place], [address] Creatinine [Mass/Vol] 0.96 mg/dL Normal 0.70-1.30 [facility] Comment on above: Result Comment: The validity of the calculated GFR GFRAA in patients over 70 years has not been determined. Clinical correlation is essential. Performed By: #### L 503.6620, L501.63875, L100.0100, L500.4050, L501.9520 ####[facility] [address] [place], [address] EST GFR - AA 99 mL/min Normal >60 [facility] Comment on above: Result Comment: Afri can Spanish GFR Calc Performed By: #### L 503.6620, L501.91236, L100.0100, L500.4050, L501.9520 ####[facility] [address] [place], [address] GAP 4 Low 5-15 [facility] Comment on above: Performed By: #### L 503.6620, L501.72526, L100.0100, L500.4050, L501.9520 ####[facility] [address] [place], [address] GFR/1.73 sq M.predicted among non-blacks MDRD (S/P/Bld) [Vol rate/Area] 82 mL/min/{1.73_m2} Normal >60 [facility] Comment on above: Result Comment: Non- GFR Calc Performed By: #### L 503.6620, L501.62406, L100.0100, L500.4050, L501.9520 ####[facility] [address] [place], [address] Globulin (S) [Mass/Vol] 3.7 g/dL Normal 2.2-4.2 [facility] Comment on above: Performed By: #### L 503.6620, L501.07018, L100.0100, L500.4050, L501.9520 ####[facility] [address] [place], [address] Glucose [Mass/Vol] 91 mg/dL Normal 74-106 [facility] Comment on above: Performed By: #### L 503.6620, L501.70058, L100.0100, L500.4050, L501.9520 ####[facility] [address] [place], [address] Potassium [Moles/Vol] 4.6 mmol/L Normal 3.5-5.1 [facility] Comment on above: Performed By: #### L 503.6620, L501.78991, L100.0100, L500.4050, L501.9520 ####[facility] [address] [place], [address] Sodium [Moles/Vol] 135 mmol/L Low 136-145 [facility] Comment on above: Performed By: #### L 503.6620, L501.74759, L100.0100, L500.4050, L501.9520 ####[facility] [address] [place], [address] T PROT 6.9 g/dL Normal 6.4-8.2 [facility] Comment on above: Performed By: #### L 503.6620, L501.64796, L100.0100, L500.4050, L501.9520 ####[facility] [address] [place], [address] Urea nitrogen [Mass/Vol] 5 mg/dL Low 7-18 [facility] Comment on above: Performed By: #### L 503.6620, L501.07212, L100.0100, L500.4050, L501.9520 ####[facility] [address] [place], [address] Free T3on 12-03-2023 Free T3 [Mass/Vol] 2.3 pg/mL Normal 2.18-3.98 [facility] Comment on above: Performed By: #### L 503.6620, L501.46324, L100.0100, L500.4050, L501.9520 ####[facility] [address] [place], [address] Pulmonary Visit Reporton Pulmonary Visit Report [facility] [address] [place] [address] OFFICE VISIT Date of Service: 12/03/23 MR#: [id number] Acct: [id number] Name: PATRICE VERGARA Rep #: [id number] : 1950 Provider: KIMBER Monge Age/Sex: 73/M Location: [facility] [place], [place].PMW Status: Signed Assessment and Plan Assessment and Plan (1) Smoking greater than 20 pack years: Status: Chronic Comment: smoking daily Plan: Encourage complete smoking cessation. The patient is appropriate for LDCT, ordered accordingly. If the test results indicate only annual follow-up, this can be discussed at his next office visit. However, if it indicates some additional imaging or intervention is necessary the patient will be contacted by phone to set up a sooner office visit. He is agreeable with this plan. (2) Obstructive sleep apnea: Status: Chronic Plan: He is using and benefiting from Pap therapy. No indication for titration study at this time. Contact the office for any new or worsening symptoms in the meantime. Follow-up in 3 months. (3) Shortness of breath on exertion: Status: Chronic Plan: He did not like Stiolto. He continues to be symptomatic despite compliance with Spiriva. For this reason I am going to escalate him to triple therapy. He was provided with a sample of Bevespi. He was instructed to use 2 puffs twice daily. He was also instructed to rinse his mouth out after each use. He is going to take the medication for a few days and contact the office to let us know if he likes it. If he approves, we will order a prescription. No additional testing at this time. Plan Details Follow Up: 3 Months ([facility]) HPI 4 m fu Chief Complaint: Response to Stiolto HPI Comments Details: This patient presents to the office today for follow-up of his COPD with obstructive sleep apnea. He is ambulatory and currently on room air. He has not recently been seen in the ED or urgent care for any respiratory illness. He has not required any antibiotics or prednisone for any breathing problems. The patient reports that he tried Stiolto. He states that he likes Spiriva better. He has been compliant with the use of Spiriva daily. He has not recently used his albuterol rescue inhaler. He does report shortness of breath on exertion. He has an occasional nonproductive cough. He feels as though he has chest congestion and phlegm that he should be able to expectorate but is not able to. He denies any wheezing, chest tightness or palpitations. He has not had any fever, chills or body aches. He denies morning headaches. He is not having excessive nocturia. He admits to occasional dry mouth. He is not requiring naps. He is not having excessive nocturia. He continues to smoke marijuana daily. He is no longer smoking cigarettes. Compliance report for the past 30 days shows 93% compliance with an average use of 5 hours and 6 minutes per night. Current setting is BiPAP 01/28 cmH2O with residual AHI of 12.2 events per hour. Leaks do appear to be somewhat of an issue. Intake Vital Signs 07/30/23 07:36 12/03/23 08:07 Height 5 ft 10 in 5 ft 10 in Weight: 172 lb BMI 24.7 BP 134/73 H Blood Pressure Location Rt brachial Position Sitting Respiration 20 H Pulse 50 L Pulse Source Monitor Temp 97.3 F L Temperature Source Temporal Artery Pulse Oximetry (%) 97 Oxygen Delivery Method room air Intake Visit Reasons: 4 m Speech Pathologist Required: No DME Vendor: bip[employer]- [employer] Accompanied by: Self Is patient in pain?: No Allergies codeine Allergy (Verified 12/03/23 14:56) Shortness of breath lisinopril Allergy (Verified 12/03/23 14:56) Shortness of breath Medications ???Medication ???Instructions ???Recorded ???Confirmed ???Type aspirin 325 mg tablet 325 mg PO DAILY@0800 [facility] 11/03/14 12/03/23 Rx #30 tabs omeprazole 40 mg capsule,delayed 40 mg PO DAILY Indigestion 04/01/22 12/03/23 History release nitroglycerin 0.4 mg sublingual 0.4 mg sublingual Q5M PRN Chest 12/05/22 12/03/23 Rx tablet Pain #25 tabs atorvastatin 40 mg tablet 40 mg PO QDAY HYPERLIPIDEMIA 04/23/23 12/03/23 History gabapentin 400 mg capsule 800 mg PO BID PAIN 04/23/23 12/03/23 History acetaminophen 500 mg tablet 1,000 mg (2 x 500 mg) PO Q8 7 days 05/15/23 12/03/23 Rx #42 tabs sennosides 8.6 mg-docusate sodium 2 tab PO BID PRN constipation 7 05/15/23 12/03/23 Rx 50 mg tablet (Stool days #28 tabs Softener-Stimulant Laxative) tramadol 50 mg tablet 50 mg PO Q6 PRN 07/11/23 12/03/23 History amlodipine 5 mg tablet 5 mg PO DAILY HYPERTENSION #90 tabs 07/22/23 12/03/23 Rx tiotropium 2.5 mcg-olodaterol 2.5 2 inh inhalation DAILY #4 grams 05/08/24 09/11/24 Rx mcg/actuation mist for inhalation (Stiolto Respimat) clopidogrel 75 mg tablet 75 (more content not included)... Normal [facility] Thyroid Stim Hormone (TSH)on 12-03-2023 TSH 0.980 uIU/mL Normal 0.358-3.740 [facility] Comment on above: Performed By: #### L 503.6620, L501.76516, L100.0100, L500.4050, L501.9520 ####[facility] [id number] [place], [address] Lumbar Spine 2 or 3 Viewson 11-13-2023 Lumbar Spine 2 or 3 Views [facility] [address] [place] [address] Lumbar Spine 2 or 3 Views MR#: [id number] Acct: [id number] Name: PATRICE VERGARA Rep #: [id number] : 1950 M 73 From: Benito Franco MD PCP: Dr. Beulah Catherine DO Status: DEP AMB Study: Lumbar Spine 2 or 3 Views Date of Exam: Exam# [id number] Ordering Dr: Jackie Zhang [id number] STUDY: X-RAY - LUMBAR SPINE REASON FOR EXAM: Male, 73 years old. s/p lumbar fusion -- please do upright AP and LAT TECHNIQUE: 2 view(s) of the lumbar spine were obtained. COMPARISON: 08/07/2023 FINDINGS: Normal lumbar lordosis. Mild dextroscoliosis centered at L3. Status post discectomy, interbody fusion, and transpedicular fixation from L3 through S1 with anatomic alignment which is unchanged. There is multilevel endplate spondylosis of the lumbar vertebrae. There is multi-level degenerative disc disease with multi-level disc space narrowing. The soft tissue structures are unremarkable. RAD/Lumbar Spine 2 or 3 Views IMPRESSION: No change from 08/07/2023. Electronically Signed: Benito Franco MD at 8:05 EDT , CC: RODNEY Valdez; Dr. Beulah Catherine DO Girls Tennis Coach: Signed Normal [facility] Orthopedic Visit Reporton Orthopedic Visit Report [facility] [address] [place] [address] [address] [place] [address] OFFICE VISIT Date of Service: 11/13/23 MR#: [id number] Acct: [id number] Name: PATRICE VERGARA Rep #: [id number] : 1950 Provider: Dr. Amarjit Irving MD Age/Sex: 73/M Location: [facility] [place], [place].BOOKER Status: Signed Intake Vital Signs 07/30/23 07:36 Height 5 ft 10 in Intake Visit Reasons: LUMBAR SPINE Chief Complaint: 6 month follow up Accompanied by: Self Is patient in pain?: Yes Allergies codeine Allergy (Verified 11/13/23 07:59) Shortness of breath lisinopril Allergy (Verified 11/13/23 07:59) Shortness of breath Medications ???Medication ???Instructions ???Recorded ???Confirmed ???Type aspirin 325 mg tablet 325 mg PO DAILY@0800 [facility] 11/03/14 11/13/23 Rx #30 tabs omeprazole 40 mg capsule,delayed 40 mg PO DAILY Indigestion 04/01/22 11/13/23 History release nitroglycerin 0.4 mg sublingual 0.4 mg sublingual Q5M PRN Chest 12/05/22 11/13/23 Rx tablet Pain #25 tabs atorvastatin 40 mg tablet 40 mg PO QDAY HYPERLIPIDEMIA 04/23/23 11/13/23 History gabapentin 400 mg capsule 800 mg PO BID PAIN 04/23/23 11/13/23 History acetaminophen 500 mg tablet 1,000 mg (2 x 500 mg) PO Q8 7 days 05/15/23 11/13/23 Rx #42 tabs sennosides 8.6 mg-docusate sodium 2 tab PO BID PRN constipation 7 05/15/23 11/13/23 Rx 50 mg tablet (Stool days #28 tabs Softener-Stimulant Laxative) tramadol 50 mg tablet 50 mg PO Q6 PRN 07/11/23 11/13/23 History amlodipine 5 mg tablet 5 mg PO DAILY HYPERTENSION #90 tabs 07/22/23 11/13/23 Rx tiotropium 2.5 mcg-olodaterol 2.5 2 inh inhalation DAILY #4 grams 07/30/23 11/13/23 Rx mcg/actuation mist for inhalation (Stiolto Respimat) clopidogrel 75 mg tablet 75 mg PO DAILY BLOOD THINNER #90 09/04/23 11/13/23 Rx tabs isosorbide mononitrate 30 mg 30 mg PO DAILY HYPERTENSION #90 11/07/23 11/13/23 Rx tablet,extended release 24 hr tabs carvedilol 25 mg tablet 12.5 mg (1/2 x 25 mg) PO BID 11/10/23 11/13/23 Rx HYPERTENSION #180 tabs Have you fallen in the past year?: No PFSH Medical History Loss of hearing No natural teeth Hepatitis High cholesterol Injury of back History of hiatal hernia Sleep apnea Leg cramps Chest pain Aortic stenosis Neck fracture Chronic back pain Lumbar pain COVID Carotid atherosclerosis Venous insufficiency Venous ulcer Wears hearing aid Wears glasses Complete edentulism, class III Alcohol use Marijuana use Injury of head and neck Loss of consciousness History of diverticulitis Former smoker CPAP (continuous positive airway pressure) dependence History of pain when walking Neuropathy Hypertension History of stress test History of echocardiogram Cardiology follow-up encounter HLD (hyperlipidemia) Renal artery stenosis Bilateral carotid artery stenosis Nonrheumatic aortic (valve) stenosis H/o addiction H/o blood transfusion Heart disease Lung disease Arthritis DJD (degenerative joint disease) Hiatal hernia GERD (gastroesophageal reflux disease) Bilateral carotid bruits Fibromyalgia Back pain Restless legs Peripheral artery disease Atherosclerotic heart disease of [place] coronary artery without angina pectoris Obstructive sleep apnea Right leg weakness Right arm weakness Hepatitis C Chronic obstructive lung disease Benign essential hypertension Acute exacerbation of chronic obstructive airways disease Abdominal pain Surgical History History of coronary artery stent placement History of nasal surgery History of cardiac catheterization Hx of colonoscopy Hx of hemorrhoidectomy Presence of stent in coronary artery ( 03/2011) Postsurgical percutaneous transluminal coronary angioplasty (PTCA) status ( 03/2011) History of stent insertion of renal artery History of back surgery Family History Brother Tonsil cancer Cancer Skin Diabetes Sister Breast cancer Diabetes Mother Diabetes Hypertension CAD (coronary artery disease) Myocardial infarction Brother CAD (coronary artery disease) Myocardial infarction Cardiomyopathy Father Cancer Social History household members: spouse housing: house current occupational status: employed Smoking Status: Former smoker alcohol intake: never substance use type: marijuana and other details: h/o addiction caffeine: Yes what type of physical activity do you participate in: walking frequency: 5-6 times per week seatbelt use: always do you feel safe at home: Yes HPI LUMBAR SPINE Details: This documentation accurately reflects th (more content not included)... Normal [facility] Basophil percentageOrdered B y: Amarjit Irving on 05-15-2023 Chloride [Moles/Vol] 109 mmol/L 98-107 [facility] Glucose [Mass/Vol] 129 mg/dL 74-106 [facility] Comment on above: Fasting Glucose resu lt greater than or equal to 126 mg/dL suggests DIABETES MELLITUS per A.D.A. criteria. Hemoglobin (Bld) [Mass/Vol] 9.0 g/dL 13.0-16.5 [facility] Potassium [Moles/Vol] 4.2 mmol/L 3.5-5.1 [facility] Sodium [Moles/Vol] 139 mmol/L 136-145 [facility] WBC (Bld) [#/Vol] 14.3 10*3/uL 4.4-11.0 [facility] Determination of erythrocyte mean corpuscular volume (MCV)Ordered By: Amarjit Irving on 05-15-2023 MCV (RBC) [Entitic vol] 91.3 fL 80-94 [facility] Erythrocyte distribution wid th ratioOrdered By: Amarjit Irving on 05-15-2023 Erythrocyte distribution width (RBC) [Ratio] 13.9 % 11.6-14.6 [facility] Erythrocyte distribution wid th standard deviationOrdered By: Amarjit Irving on 05-15-2023 Erythrocyte distribution width (RBC) [Entitic vol] 46.4 fL 35.1-43.9 [facility] Hematocrit Auto (Bld) [Volum e fraction]Ordered By: Amarjit Irving on 05-15-2023 Hematocrit (Bld) [Volume fraction] 27.3 % 40-54 [facility] Laboratory - Chemistry and C hemistry - challengeOrdered By: Amarjit Irving on 05-15-2023 CO2 [Moles/Vol] 26.0 mmol/L 21.0-32.0 [facility] Urea nitrogen/Creatinine [Mass ratio] 12.0 mg/mg 10-20 [facility] Laboratory - Hematology and Cell countsOrdered By: Amarjit Irving on 05-15-2023 MCH (RBC) [Entitic mass] 30.1 pg 27.0-32.0 [facility] MCHC (RBC) [Mass/Vol] 33.0 g/dL 32-36 [facility] Platelet mean volume (Bld) [Entitic vol] 10.0 fL 6.2-12.0 [facility] Platelets (Bld) [#/Vol] 132 10*3/uL 150-450 [facility] No Panel InformationOrdered By: Amarjit Irving on 05-15-2023 Estimated Creatinine Clearance Calc 62.90 ml/min [facility] Estimated GFR (MDRD) Amer 86 mL/min >60 [facility] Comment on above: GFR Calc Estimated GFR (MDRD) Non-Af Amer 71 mL/min >60 [facility] Comment on above: Non- GFR Calc RBC Auto (Bld) [#/Vol]Ordere d By: Amarjit Irving on 05-15-2023 RBC (Bld) [#/Vol] 2.99 10*6/uL 4.6-6.2 [facility] Serum or plasma calcium scottie urement (mass/volume)Ordered By: Amarjit Irving on 05-15-2023 Calcium [Mass/Vol] 8.0 mg/dL 8.5-10.1 [facility] Serum or plasma creatinine m easurement (mass/volume)Ordered By: Amarjit Irving on 05-15-2023 Creatinine [Mass/Vol] 1.08 mg/dL 0.70-1.30 [facility] Comment on above: The validity of the calculated GFR & GFRAA in patients over 70 years has not been determined. Clinical correlation is essential. Serum or plasma urea nitroge n measurement (mass/volume)Ordered By: Amarjit Irving on 05-15-2023 Urea nitrogen [Mass/Vol] 13 mg/dL 7-18 [facility] Thin prep Papanicolaou smear with manual screeningOrdered By: Amarjit Irving on 05-15-2023 Thin prep Papanicolaou smear with manual screening 4 5-15 [facility] Thin prep Papanicolaou smear with manual screeningOrdered By: Amarjit Irving on 05-14-2023 Thin prep Papanicolaou smear with manual screening 95 mg/dL 74-106 [facility] Comment on above: MANAGEMENT OF PATIEN T CARE PER NURSING PROTOCOL Basophil percentageOrdered B y: Beulah Catherine on 05-07-2023 Basophil percentage TNP [facility] Comment on above: Test not performed No Panel InformationOrdered By: Beulah Catherine on 05-07-2023 Addendum Document Comment . [facility] Comment on above: The quantitative ran ge of this assay is 15 IU/mL to 100million IU/mL. Hepatitis A IgM Antibody Negative Negative [facility] Comment on above: Performed at: - [address] [id number] Director: Gay Hopper MD, Phone: [phone] at: [facility] Lab[address] [id number] Director: Lon Lou PhD, Phone: [phone] Hepatitis B Surface Antigen Non-Reactive Nonreactive [facility] Serum or plasma hepatitis C virus RNA measurement by probe and target amplification mOrdered By: Beulah Catherine on 05-07-2023 HCV RNA JOEL+probe Qn Not detected . [facility] Absolute lymphocyte countOrd ered By: Amarjit Irving on 04-30-2023 Lymphocytes Auto (Unsp spec) [#/Vol] 2.27 10*3/uL 0.83-4.51 [facility] Automated lymphocyte count a s percentage of total leukocytesOrdered By: Amarjit Irving on 04-30-2023 Lymphocytes/100 WBC Auto (Unsp spec) 25.8 % 19-41 [facility] Basophil percentageOrdered B y: Amarjit Irving on 04-30-2023 Basophils/100 WBC (Bld) 1.0 % 0-1 [facility] Eosinophils/100 WBC (Bld) 2.5 % 0-5 [facility] Monocytes/100 WBC (Bld) 10.7 % 0-10 [facility] Neutrophils (Bld) [#/Vol] 5.2 10*3/uL 2.0-7.7 [facility] Neutrophils/100 WBC (Bld) 59.1 % 47-70 [facility] Basophil percentageOrdered B y: Michelet Robbins on 04-30-2023 Bilirubin [Mass/Vol] 0.70 mg/dL 0.20-1.00 [facility] Comment on above: For patients on eltr ombopag therapy, use of [place] TBIL is not recommended. Protein [Mass/Vol] 7.7 g/dL 6.4-8.2 [facility] Direct bilirubinOrdered By: Michelet Robbins on 04-30-2023 Bilirubin.direct [Mass/Vol] 0.23 mg/dL 0.00-0.30 [facility] HIV 1 and HIV-2 antibody ass ay with HIV-1 p24 antigen detectionOrdered By: Amarjit Irving on 04-30-2023 HIV 1+2 Ab+HIV1 p24 Ag IA Ql Non-Reactive Nonreactive [facility] Immature granulocytes/100 WB C Auto (Bld)Ordered By: Amarjit Irving on 04-30-2023 Immature granulocytes/100 WBC (Bld) 0.900 % 0.0-0.9 [facility] Comment on above: IG% - Immature Granu locytes (promyelocytes, myelocytes and metamyelocytes) > 1% indicates that a LEFT SHIFT is Present. Laboratory - Chemistry and C hemistry - challengeOrdered By: Michelet Robbins on 04-30-2023 ALP [Catalytic activity/Vol] 82 U/L 45-117 [facility] ALT [Catalytic activity/Vol] 18 U/L 16-61 [facility] Globulin (S) [Mass/Vol] 3.9 g/dL 2.2-4.2 [facility] Magnesium [Mass/Vol] 2.4 mg/dL 1.6-2.6 [facility] Laboratory - Hematology and Cell countsOrdered By: Amarjit Irving on 04-30-2023 Nucleated RBC/100 WBC (Bld) [Ratio] 0 % 0-5 [facility] No Panel InformationOrdered By: Amarjit Irving on 04-30-2023 Hepatitis A Antibody Total Positive Negative [facility] Comment on above: Comment: The HAV tot al antibody assay detects both IgG andIgM but does not differentiate between them. A negativeresult suggests susceptibility to infection. A positiveresult could be due to vaccination, previously resolvedinfection or active infection. Testing for HAV IgM shouldbe performed if active HAV infection is suspected. Labcorpoffers profiles that will automatically reflex positive HAVtotal antibody results to IgM (e.g., panel #[id number] HAVAntibody w/ Rfx).Performed at: [address] [id number] Director: Lon Lou PhD, Phone: [phone] Hepatitis C Antibody Reactive Nonreactive [facility] Comment on above: Non Reactive: < 0.8 Equivocal: >/= 0.8 to < 1.0 Reactive: >/= 1.0The CDC recommends that a reactive/equivocal HCV antibody result be followed up by the HCV Nucleic Acid Amplificationtest (929901) Nasal Screen MRSA/MSSA [facility] Serum hepatitis B virus surf valeriano antibody IgG detectionOrdered By: Amarjit Irving on 04-30-2023 HBV surface IgG Ql (S) Non-Reactive [facility] Comment on above: Non Reactive: Incons istent with immunity less than <10 mIU/mL Reactive: Consistent with immunity greater than or equal to 10 mIU/mL Thin prep Papanicolaou smear with manual screeningOrdered By: Michelet Robbins on 04-30-2023 Thin prep Papanicolaou smear with manual screening 3.8 g/dL 3.2-5.0 [facility] Thin prep Papanicolaou smear with manual screening 16 U/L 15-37 [facility] Absolute lymphocyte countOrd ered By: Beulah Catherine on 10-23-2022 Lymphocytes Auto (Unsp spec) [#/Vol] 2.25 10*3/uL 0.83-4.51 [facility] Basophil percentageOrdered B y: Beulah Florin on 10-23-2022 Basophils/100 WBC (Bld) 0.9 % 0-1 [facility] Bilirubin [Mass/Vol] 0.50 mg/dL 0.20-1.00 [facility] Comment on above: For patients on eltr ombopag therapy, use of [place] TBIL is not recommended. Chloride [Moles/Vol] 103 mmol/L 98-107 [facility] Eosinophils/100 WBC (Bld) 3.1 % 0-5 [facility] Glucose [Mass/Vol] 73 mg/dL 74-106 [facility] Neutrophils (Bld) [#/Vol] 5.9 10*3/uL 2.0-7.7 [facility] Neutrophils/100 WBC (Bld) 62.2 % 47-70 [facility] Potassium [Moles/Vol] 4.5 mmol/L 3.5-5.1 [facility] Protein [Mass/Vol] 7.3 g/dL 6.4-8.2 [facility] Sodium [Moles/Vol] 137 mmol/L 136-145 [facility] WBC (Bld) [#/Vol] 9.6 10*3/uL 4.4-11.0 [facility] Blood erythrocytes count (nu mber/volume)Ordered By: Beulah Catherine on 10-23-2022 RBC (Bld) [#/Vol] 4.85 10*6/uL 4.6-6.2 [facility] Blood hemoglobin measurement (mass/volume)Ordered By: Beulah Catherine on 10-23-2022 Hemoglobin (Bld) [Mass/Vol] 14.6 g/dL 13.0-16.5 [facility] Blood lymphocytes/100 leukoc ytesOrdered By: Beulah Catherine on 10-23-2022 Lymphocytes/100 WBC (Bld) 23.5 % 19-41 [facility] Blood monocytes/100 leukocyt esOrdered By: Beulah Catherine on 10-23-2022 Monocytes/100 WBC (Bld) 9.6 % 0-10 [facility] Blood platelet mean volumeOr dered By: Beulah Catherine on 10-23-2022 Platelet mean volume (Bld) [Entitic vol] 9.7 fL 6.2-12.0 [facility] Determination of erythrocyte mean corpuscular volume (MCV)Ordered By: Beulah Catherine on 10-23-2022 MCV (RBC) [Entitic vol] 92.6 fL 80-94 [facility] Hematocrit Auto (Bld) [Volum e fraction]Ordered By: Beulah Catherine on 10-23-2022 Hematocrit (Bld) [Volume fraction] 44.9 % 40-54 [facility] Iron measurement (mass/mass) Ordered By: Beulah Catherine on 10-23-2022 Iron (Unsp spec) [Mass/Mass] 64 ug/dL 65-175 [facility] Laboratory - Chemistry and C hemistry - challengeOrdered By: Beulah Catherine on 10-23-2022 ALP [Catalytic activity/Vol] 80 U/L 45-117 [facility] ALT [Catalytic activity/Vol] 20 U/L 16-61 [facility] CO2 [Moles/Vol] 28.0 mmol/L 21.0-32.0 [facility] Cobalamin (Vitamin B12) [Mass/Vol] 346 pg/mL 211-911 [facility] Globulin (S) [Mass/Vol] 3.7 g/dL 2.2-4.2 [facility] Urea nitrogen/Creatinine [Mass ratio] 6.9 mg/mg 10-20 [facility] Laboratory - Hematology and Cell countsOrdered By: Beulah Catherine on 10-23-2022 Erythrocyte distribution width (RBC) [Entitic vol] 49.7 fL 35.1-43.9 [facility] Erythrocyte distribution width (RBC) [Ratio] 14.6 % 11.6-14.6 [facility] Immature granulocytes/100 WBC (Bld) 0.700 % 0.0-0.9 [facility] Comment on above: IG% - Immature Granu locytes (promyelocytes, myelocytes and metamyelocytes) > 1% indicates that a LEFT SHIFT is Present. MCH (RBC) [Entitic mass] 30.1 pg 27.0-32.0 [facility] Nucleated RBC/100 WBC (Bld) [Ratio] 0 % 0-5 [facility] MCHC Auto (RBC) [Mass/Vol]Or dered By: Beulah Catherine on 10-23-2022 MCHC (RBC) [Mass/Vol] 32.5 g/dL 32-36 [facility] No Panel InformationOrdered By: Beulah Catherine on 10-23-2022 Estimated GFR (MDRD) Amer 93 mL/min >60 [facility] Comment on above: GFR Calc Estimated GFR (MDRD) Non-Af Amer 77 mL/min >60 [facility] Comment on above: Non- GFR Calc Platelets bldOrdered By: Verena Catherine on 10-23-2022 Platelets (Bld) [#/Vol] 175 10*3/uL 150-450 [facility] Serum or plasma albumin scottie urement (mass/volume)Ordered By: Beulah Catherine on 10-23-2022 Albumin [Mass/Vol] 3.6 g/dL 3.2-5.0 [facility] Serum or plasma albumin/glob ulin mass ratioOrdered By: Beulah Catherine on 10-23-2022 Albumin/Globulin [Mass ratio] 1.0 {ratio} 0.9-2.4 [facility] Serum or plasma calcium scottie urement (mass/volume)Ordered By: Beulah Catherine on 10-23-2022 Calcium [Mass/Vol] 9.0 mg/dL 8.5-10.1 [facility] Serum or plasma creatinine m easurement (mass/volume)Ordered By: Beulah Catherine on 10-23-2022 Creatinine [Mass/Vol] 1.01 mg/dL 0.70-1.30 [facility] Comment on above: The validity of the calculated GFR & GFRAA in patients over 70 years has not been determined. Clinical correlation is essential. Serum or plasma ferritin demarcus surement (mass/volume)Ordered By: Beulah Catherine on 10-23-2022 Ferritin [Mass/Vol] 72 ng/mL 26-388 [facility] Serum or plasma urea nitroge n measurement (mass/volume)Ordered By: Beulah Catherine on 10-23-2022 Urea nitrogen [Mass/Vol] 7 mg/dL 7-18 [facility] Thin prep Papanicolaou smear with manual screeningOrdered By: Beulahhelena Catherine on 10-23-2022 Thin prep Papanicolaou smear with manual screening 15 U/L 15-37 [facility] Thin prep Papanicolaou smear with manual screening 6 5-15 [facility] Basophil percentageOrdered B y: Dr. Harry on 07-22-2022 Bilirubin [Mass/Vol] 0.60 mg/dL 0.20-1.00 [facility] Comment on above: For patients on eltr ombopag therapy, use of Dimension [place] TBIL is not recommended. Cholesterol [Mass/Vol] 124 mg/dL <200 [facility] Comment on above: <200 mg/dL Desirable 200-240 mg/dL Borderline >240 mg/dL High Risk Protein [Mass/Vol] 7.3 g/dL 6.4-8.2 [facility] Triglyceride [Mass/Vol] 77 mg/dL <199 [facility] Comment on above: The drugs N-Acetylcy steine and Metamizole may falsely depress this assay.Serum Triglycerides Reference Interval Normal <150 mg/dL Borderline high 150 - 199 mg/dL High 200 - 499 mg/dL Very High > or = 500 mg/dL Direct bilirubinOrdered By: Dr. Harry on 07-22-2022 Bilirubin.direct [Mass/Vol] 0.16 mg/dL 0.00-0.30 [facility] Laboratory - Chemistry and C hemistry - challengeOrdered By: Dr. Harry on 07-22-2022 ALP [Catalytic activity/Vol] 79 U/L 45-117 [facility] ALT [Catalytic activity/Vol] 21 U/L 16-61 [facility] Globulin (S) [Mass/Vol] 3.7 g/dL 2.2-4.2 [facility] Serum or plasma albumin scottie urement (mass/volume)Ordered By: Dr. Harry on 07-22-2022 Albumin [Mass/Vol] 3.6 g/dL 3.2-5.0 [facility] Serum or plasma cholesterol in HDL measurement (mass/volume)Ordered By: Dr. Harry on 07-22-2022 Cholesterol in HDL [Mass/Vol] 51 mg/dL >40 [facility] Comment on above: The drugs N-Acetylcy steine and Metamizole may falsely depress this assay. Reference Range HDL <40 mg/dL Low HDL Cholesterol HDL >or= 60 mg/dL High HDL Cholesterol Serum or plasma cholesterol in VLDL measurement (mass/volume)Ordered By: Dr. Harry on 07-22-2022 Cholesterol in VLDL [Mass/Vol] 15 mg/dL 5-40 [facility] Serum or plasma low density lipoprotein (LDL) cholesterol measurement (mass/volume)Ordered By: Dr. Harry on 07-22-2022 Cholesterol in LDL [Mass/Vol] 58 mg/dL 0-130 [facility] Thin prep Papanicolaou smear with manual screeningOrdered By: Dr. Harry on 07-22-2022 Thin prep Papanicolaou smear with manual screening 18 U/L 15-37 [facility] Basophil percentageOrdered B y: Dr. Harry on 04-05-2022 Bilirubin [Mass/Vol] 0.70 mg/dL 0.20-1.00 [facility] Comment on above: For patients on eltr ombopag therapy, use of [place] TBIL is not recommended. Cholesterol [Mass/Vol] 132 mg/dL <200 [facility] Comment on above: <200 mg/dL Desirable 200-240 mg/dL Borderline >240 mg/dL High Risk Protein [Mass/Vol] 7.1 g/dL 6.4-8.2 [facility] Triglyceride [Mass/Vol] 75 mg/dL <199 [facility] Comment on above: The drugs N-Acetylcy steine and Metamizole may falsely depress this assay.Serum Triglycerides Reference Interval Normal <150 mg/dL Borderline high 150 - 199 mg/dL High 200 - 499 mg/dL Very High > or = 500 mg/dL Direct bilirubinOrdered By: Dr. Harry on 04-05-2022 Bilirubin.direct [Mass/Vol] 0.22 mg/dL 0.00-0.30 [facility] Laboratory - Chemistry and C hemistry - challengeOrdered By: Dr. Harry on 04-05-2022 ALP [Catalytic activity/Vol] 80 U/L 45-117 [facility] ALT [Catalytic activity/Vol] 14 U/L 16-61 [facility] Globulin (S) [Mass/Vol] 3.4 g/dL 2.2-4.2 [facility] Serum or plasma albumin scottie urement (mass/volume)Ordered By: Dr. Harry on 04-05-2022 Albumin [Mass/Vol] 3.7 g/dL 3.2-5.0 [facility] Serum or plasma cholesterol in HDL measurement (mass/volume)Ordered By: Dr. Harry on 04-05-2022 Cholesterol in HDL [Mass/Vol] 53 mg/dL >40 [facility] Comment on above: The drugs N-Acetylcy steine and Metamizole may falsely depress this assay. Reference Range HDL <40 mg/dL Low HDL Cholesterol HDL >or= 60 mg/dL High HDL Cholesterol Serum or plasma cholesterol in VLDL measurement (mass/volume)Ordered By: Dr. Harry on 04-05-2022 Cholesterol in VLDL [Mass/Vol] 15 mg/dL 5-40 [facility] Serum or plasma low density lipoprotein (LDL) cholesterol measurement (mass/volume)Ordered By: Dr. Harry on 04-05-2022 Cholesterol in LDL [Mass/Vol] 64 mg/dL 0-130 [facility] Thin prep Papanicolaou smear with manual screeningOrdered By: Dr. Harry on 04-05-2022 Thin prep Papanicolaou smear with manual screening 13 U/L 15-37 [facility] Basophil percentageon 2021 Bilirubin [Mass/Vol] 0.50 mg/dL 0.20-1.00 [facility] Work Phone: Comment on above: For patients on eltr ombopag therapy, use of [place] TBIL is not recommended. Cholesterol [Mass/Vol] 118 mg/dL <200 [facility] Work Phone: Comment on above: <200 mg/dL Desirable 200-240 mg/dL Borderline >240 mg/dL High Risk Protein [Mass/Vol] 7.3 g/dL 6.4-8.2 [facility] Work Phone: Triglyceride [Mass/Vol] 77 mg/dL <199 [facility] Work Phone: Comment on above: The drugs N-Acetylcy steine and Metamizole may falsely depress this assay.Serum Triglycerides Reference Interval Normal <150 mg/dL Borderline high 150 - 199 mg/dL High 200 - 499 mg/dL Very High > or = 500 mg/dL Direct bilirubinon Bilirubin.direct [Mass/Vol] 0.15 mg/dL 0.00-0.30 [facility] Work Phone: [phone] Laboratory - Chemistry and C hemistry - challengeon 07-16-2021 ALP [Catalytic activity/Vol] 68 U/L 45-117 [facility] Work Phone: ALT [Catalytic activity/Vol] 18 U/L 16-61 [facility] Work Phone: Globulin (S) [Mass/Vol] 3.6 g/dL 2.2-4.2 [facility] Work Phone: [phone] Serum or plasma albumin scottie urement (mass/volume)on 07-16-2021 Albumin [Mass/Vol] 3.7 g/dL 3.2-5.0 [facility] Work Phone: Serum or plasma cholesterol in HDL measurement (mass/volume)on 07-16-2021 Cholesterol in HDL [Mass/Vol] 48 mg/dL >40 [facility] Work Phone: Comment on above: The drugs N-Acetylcy steine and Metamizole may falsely depress this assay. Reference Range HDL <40 mg/dL Low HDL Cholesterol HDL >or= 60 mg/dL High HDL Cholesterol Serum or plasma cholesterol in VLDL measurement (mass/volume)on 07-16-2021 Cholesterol in VLDL [Mass/Vol] 15 mg/dL 5-40 [facility] Work Phone: [phone] Serum or plasma low density lipoprotein (LDL) cholesterol measurement (mass/volume)on 07-16-2021 Cholesterol in LDL [Mass/Vol] 55 mg/dL 0-130 [facility] Work Phone: [phone] Thin prep Papanicolaou smear with manual screeningon 07-16-2021 Thin prep Papanicolaou smear with manual screening 20 U/L 15-37 [facility] Work Phone: Office Visit: [facility] 11-14-19 17 Documentation of current medications (procedure) Done Invalid Interpretation Code [facility] Work Phone: [phone] Fall risk assessment No Invalid Interpretation Code [facility] Work Phone: [phone] Protein mass conc Done [facility] Work Phone: [phone] Lab Report: Lipid Profileon 11-08-2016 Cholesterol 108 mg/dL Invalid Interpretation Code 200 [facility] Work Phone: [phone] HDL Cholesterol 39 mg/dL Low [facility] Work Phone: [phone] LDL Cholesterol 50 mg/dL Invalid Interpretation Code 0-130 [facility] Work Phone: [phone] Triglyceride 95 mg/dL Invalid Interpretation Code [facility] Work Phone: [phone] very low density lipoproteins 19 mg/dL Invalid Interpretation Code 5-40 [facility] Work Phone: [phone] Lab Report: Liver Profileon 11-08-2016 Alanine aminotransferase (ALT) 21 U/L Invalid Interpretation Code 12-78 [facility] Work Phone: [phone] Albumin 3.6 g/dL Invalid Interpretation Code 3.4-5.0 [facility] Phone: [phone] Alkaline phosphatase (ALP) 71 U/L Invalid Interpretation Code 45-117 [facility] Work Phone: [phone] ALP enzyme act/vol (Bld) 71 U/L 45-117 [facility] Work Phone: [phone] Aspartate aminotransferase (AST) 19 U/L Invalid Interpretation Code 15-37 [facility] Phone: [phone] Bilirubin (direct) 0.20 mg/dL Invalid Interpretation Code 0.00-0.30 [facility] Work Phone: [phone] Bilirubin (total) 0.70 mg/dL Invalid Interpretation Code 0.20-1.00 [facility] Work Phone: [phone] Globulin 3.8 g/dL High 2.3-3.5 [facility] Work Phone: [phone] Globulin mass conc (S) 3.8 g/dL High 2.3-3.5 [facility] Work Phone: [phone] Protein 7.4 g/dL Invalid Interpretation Code 6.4-8.2 [facility] Work Phone: [phone] Office Visiton 05-06-2016 Documentation of current medications (procedure) Done Invalid Interpretation Code [facility] Work Phone: [phone] Clinical Lists Update: 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 radio officer 05-03-2016 Left ventricular Ejection fraction 60 % Invalid Interpretation Code [facility] Work Phone: [phone] Office Visiton 10-20-2015 Dietary management education, guidance, and counseling (procedure) yes Invalid Interpretation Code [facility] Work Phone: [phone] External Other: Preferred Me thod of Contacton 04-10-2015 methcontact secmsg [facility] Work Phone: [phone] Patient's prefered method of contact secmsg Invalid Interpretation Code [facility] Work Phone: [phone] Office Visiton 04-10-2015 cardiac risk group C Invalid Interpretation Code [facility] Work Phone: [phone] General cardiovascular disease 10Y risk [#] [place] N/A Invalid Interpretation Code [facility] Work Phone: [phone] Tobacco smoking status NHIS Former smoker [facility] Work Phone: [phone] Tobacco use [facility] Former smoker Invalid Interpretation Code [facility] Work Phone: [phone] Lab Report: LIVERon 10-26-19 14 ALK 76 U/L Normal 45-117 [facility] Work Phone: [phone] GE use only - for [employer] import when terms are not otherwise specified 76 U/L Normal 45-117 [facility] Work Phone: [phone] Office Visiton 09-28-2013 Tobacco smoking status NHIS Never Invalid Interpretation Code [facility] Work Phone: [phone] Clinical Lists Update: Prelo radio officer 08-23-2013 Anion gap 8 mmol/L Invalid Interpretation Code [facility] Work Phone: [phone] Anion gap molar conc 8 mmol/L [facility] Work Phone: [phone] BUN/Creatinine Ratio 7.8 mg/mg Low [facility] Work Phone: [phone] Chloride 104 mmol/L Invalid Interpretation Code [facility] Work Phone: [phone] CO2 26.0 mmol/L Invalid Interpretation Code [facility] Work Phone: [phone] CO2 ppres (BldV) 26.0 mmol/L [facility] Work Phone: [phone] Creatinine 0.9 mg/dL Invalid Interpretation Code [facility] Work Phone: [phone] Erythrocytes (RBC) 4.70 10*6/uL Invalid Interpretation Code [facility] Work Phone: [phone] Glucose 94 mg/dL Invalid Interpretation Code [facility] Work Phone: [phone] Glucose mass conc 94 mg/dL [facility] Work Phone: [phone] Hematocrit (HCT) 39.7 % Invalid Interpretation Code [facility] Work Phone: [phone] Hematocrit Volume Fraction (Bld) 39.7 % [facility] Work Phone: [phone] Hemoglobin (HGB) 13.7 g/dL Low [facility] Work Phone: [phone] MCH 29.1 pg Invalid Interpretation Code [facility] Work Phone: [phone] MCH Entitic mass (RBC) 29.1 pg [facility] Work Phone: [phone] MCHC 34.5 g/dL Invalid Interpretation Code [facility] Work Phone: [phone] MCHC mass conc (RBC) 34.5 g/dL [facility] Work Phone: [phone] MCV 84.5 fL Invalid Interpretation Code [facility] Work Phone: [phone] MCV Entitic volume (RBC) 84.5 fL [facility] Work Phone: [phone] Platelets 231 10*3/mm3 Invalid Interpretation Code [facility] Work Phone: [phone] Platelets #/vol (Bld) 231 10*3/mm3 [facility] Work Phone: [phone] Potassium 3.1 mmol/L Invalid Interpretation Code [facility] Work Phone: [phone] RBC #/vol (Bld) 4.70 10*6/uL [facility] Work Phone: [phone] Sodium 138 mmol/L Invalid Interpretation Code [facility] Work Phone: [phone] Urea nitrogen 7 mg/dL Invalid Interpretation Code [facility] Work Phone: [phone] WBC #/vol (Bld) 10.7 10*3/uL [facility] Work Phone: [phone] WBC (Leukocytes) 10.7 10*3/uL Invalid Interpretation Code [facility] Work Phone: [phone] Lab Report: PTon 07-16-2012 INR Coag RelTime (PPP) 1.1 {INR} Normal [facility] Work Phone: [phone] INR in blood by coagulation 1.1 {INR} Normal [facility] Work Phone: [phone] prothrombin time, actual/normal, ratio 13.3 SECONDS Normal 11.9-14.4 [facility] Work Phone: [phone] PTP 13.3 SECONDS Normal 11.9-14.4 [facility] Work Phone: [phone] Replaced Document: BMPon Calcium 10.0 mg/dL Normal 8.5-10.1 [facility] Work Phone: [phone] Replaced Document: Ashley E Observationson 08-14-2011 EKG QRS axis 35 deg [facility] Work Phone: [phone] electrocardiogram interpretation Sinus Bradycardia WITHIN NORMAL LIMITS Invalid Interpretation Code [facility] Work Phone: [phone] Interpretation Sinus Bradycardia WITHIN NORMAL LIMITS [facility] Work Phone: [phone] P [place] 31 deg [facility] Work Phone: [phone] P wave axis, electrocardiogram 31 deg Invalid Interpretation Code [facility] Work Phone: [phone] AL Interval 188 ms [facility] Work Phone: [phone] AL interval, electrocardiogram 188 ms Invalid Interpretation Code [facility] Work Phone: [phone] Pulse (Heart Rate) 55 /min Invalid Interpretation Code [facility] Work Phone: [phone] Pulse (Heart Rate) 429 ms Invalid Interpretation Code [facility] Work Phone: [phone] QRS axis, electrocardiogram 35 deg Invalid Interpretation Code [facility] Work Phone: [phone] QRS Duration 90 ms [facility] Work Phone: [phone] QRS duration, electrocardiogram 90 ms Invalid Interpretation Code [facility] Work Phone: [phone] QT Interval new path ms [facility] Work Phone: [phone] QT interval, electrocardiogram new path ms Invalid Interpretation Code [facility] Work Phone: [phone] T [place] 26 deg [facility] Work Phone: [phone] T wave axis, electrocardiogram 26 deg Invalid Interpretation Code [facility] Work Phone: [phone] Clinical Lists Update: 07-25-2011 Erythrocyte distribution width Ratio (RBC) 14.4 % [facility] Work Phone: [phone] MCHC 34.6 % Invalid Interpretation Code [facility] Work Phone: [phone] MCHC mass conc (RBC) 34.6 % [facility] Work Phone: [phone] RDW-CA 14.4 % Invalid Interpretation Code [facility] Work Phone: [phone] Clinical Lists Update: 07-24-2011 Thyroid stimulating hormone (TSH) 3.53 u[iU]/mL Invalid Interpretation Code [facility] Work Phone: [phone] Thyroxine (T4) free 1.17 ng/dL Invalid Interpretation Code [facility] Work Phone: [phone] Lab Report: VMAon 04-17-2011 vanillylmandelate, urine 0.4 mg/L Normal Undefined [facility] Work Phone: [phone] Clinical Lists Update: [facility]04-01-2011 Neutrophils 213 10*3/uL Invalid Interpretation Code [facility] Work Phone: Neutrophils #/vol (Bld) 213 10*3/uL [facility] Work Phone: [phone] Vital Signs Date Time Vital Sign Value Performing Clinician Shannan jimenez 09-08-2024 07:19-0400 Body mass index (BMI) [Ratio] 23.6 kg/m2 Dr. Beulah Catherine DO Work Phone: [facility] 09-08-2024 07:19-0400 Body temperature 97.2 [degF] Dr. Beulah Catherine DO Work Phone: [facility] 09-08-2024 07:19-0400 Body weight 76.[address] Beulah Catherine DO Work Phone: [facility] 09-08-2024 07:19-0400 Diastolic blood pressure 75 mm[Hg] Dr. Beulah Catherine DO Work Phone: [facility] 09-08-2024 07:19-0400 Heart rate 55 /min Dr. Beulah Catherine DO Work Phone: [facility] 09-08-2024 07:19-0400 Respiratory rate 18 /min Dr. Beulah Catherine DO Work Phone: [facility] 09-08-2024 07:19-0400 SaO2% (BldA) [Mass fraction] 97 % Dr. Beulah Catherine DO Work Phone: [facility] 09-08-2024 07:19-0400 Systolic blood pressure 145 mm[Hg] Dr. Beulah Catherine DO Work Phone: [facility] 09-03-2024 09:47-0400 Body height 180.[address] Beulah Catherine DO Work Phone: [facility] 09-03-2024 09:47-0400 Body mass index (BMI) [Ratio] 23.7 kg/m2 Dr. Beulah Catherine DO Work Phone: [facility] 09-03-2024 09:47-0400 Body weight 77.[address] Beulah Catherine DO Work Phone: [facility] 09-03-2024 09:47-0400 Diastolic blood pressure 78 mm[Hg] Dr. Beulah Catherine DO Work Phone: [facility] 09-03-2024 09:47-0400 Heart rate 53 /min Dr. Beulah Catherine DO Work Phone: [facility] 09-03-2024 09:47-0400 Respiratory rate 16 /min Dr. Beulah Catherine DO Work Phone: [facility] 09-03-2024 09:47-0400 Systolic blood pressure 113 mm[Hg] Dr. Beulah Catherine DO Work Phone: [facility] 07-29-2024 07:48-0400 Body height 180.[address] Beulah Catherine DO Work Phone: [facility] 07-29-2024 07:48-0400 Body weight 81.[address] Beulah Catherine DO Work Phone: [facility] 07-01-2024 07:20-0400 Body weight 80.[address] Beulah Catherine DO Work Phone: [facility] 06-09-2024 05:06-0400 Body mass index (BMI) [Ratio] 23.8 kg/m2 Dr. eBulah Catherine DO Work Phone: [facility] 06-09-2024 05:06-0400 Body temperature 97 [degF] Dr. Beulah Catherine DO Work Phone: [facility] 06-09-2024 05:06-0400 Body weight 77.[address] Beulah Catherine DO Work Phone: [facility] 06-09-2024 05:06-0400 Diastolic blood pressure 71 mm[Hg] Dr. Beulah Catherine DO Work Phone: [facility] 06-09-2024 05:06-0400 Heart rate 52 /min Dr. Beulah Catherine DO Work Phone: [facility] 06-09-2024 05:06-0400 Respiratory rate 20 /min Dr. Beulah Catherine DO Work Phone: [facility] 06-09-2024 05:06-0400 SaO2% (BldA) [Mass fraction] 96 % Dr. Beulah Catherine DO Work Phone: [facility] 06-09-2024 05:06-0400 Systolic blood pressure 128 mm[Hg] Dr. Beulah Catherine DO Work Phone: [facility] 06-03-2024 14:50-0400 Body height 177.8 cm Marietta Banuelos PROVIDER [employer] ATTENDANT Work Phone: [facility] 06-03-2024 14:50-0400 Body mass index (BMI) [Ratio] 25.4 kg/m2 Marietta Banuelos PROVIDER [employer] ATTENDANT Work Phone: [facility] 06-03-2024 14:50-0400 Body weight 80.29 kg Mariettachristian Banuelos PROVIDER [employer]CR[employer] - [employer] ATTENDANT Work Phone: [facility] 06-03-2024 13:32-0400 Diastolic blood pressure 72 mm[Hg] Marietta Banuelos PROVIDER [employer] - [employer] ATTENDANT Work Phone: [facility] 06-03-2024 13:32-0400 Systolic blood pressure 136 mm[Hg] Marietta Banuelos PROVIDER [employer] - [employer] PU[employer] ATTENDANT Work Phone: [facility] 06-03-2024 13:11-0400 Body height 177.8 cm Marietta Banuelos PROVIDER SCR[employer] - [employer] ATTENDANT Work Phone: [facility] 06-03-2024 13:11-0400 Body mass index (BMI) [Ratio] 25.4 kg/m2 Marietta Banuelos PROVIDER SCR[employer] - [employer] ATTENDANT Work Phone: [facility] 06-03-2024 13:11-0400 Body weight 80.29 kg Marietta Banuelos PROVIDER [employer] ATTENDANT Work Phone: [facility] [employer] 06-03-2024 13:11-0400 Heart rate 54 /min Marietta Banuelos PROVIDER [employer] ATTENDANT Work Phone: [facility] 06-03-2024 13:11-0400 SaO2% (BldA) [Mass fraction] 97 % Marietta Banuelos PROVIDER [employer] - [employer] ATTENDANT Work Phone: [facility] 06-01-2024 11:04-0400 Body mass index (BMI) [Ratio] 24.4 kg/m2 Dr. Beulah Catherine DO Work Phone: [facility] 06-01-2024 10:26-0400 Diastolic blood pressure 60 mm[Hg] Dr. Beulah Catherine DO Work Phone: [facility] 06-01-2024 10:26-0400 Heart rate 59 /min Dr. Beulah Catherine DO Work Phone: [facility] 06-01-2024 10:26-0400 SaO2% (BldA) [Mass fraction] 96 % Dr. Beulah Catherine DO Work Phone: [facility] 06-01-2024 10:26-0400 Systolic blood pressure 120 mm[Hg] Dr. Beulah Catherine DO Work Phone: [facility] 06-01-2024 10:14-0400 Body height 180.[address] Beulah Catherine DO Work Phone: [facility] 06-01-2024 10:14-0400 Body weight 79.[address] Beulah Catherine DO Work Phone: [facility] 05-20-2024 09:59-0500 Body mass index (BMI) [Ratio] 24.4 kg/m2 Dr. Beulah Catherine DO Work Phone: [facility] 05-20-2024 09:59-0500 Body weight 79.[address] Beulah Catherine DO Work Phone: [facility] 05-20-2024 09:59-0500 Diastolic blood pressure 77 mm[Hg] Dr. Beulah Catherine DO Work Phone: [facility] 05-20-2024 09:59-0500 Heart rate 58 /min Dr. Beulah Catherine DO Work Phone: [facility] 05-20-2024 09:59-0500 Respiratory rate 18 /min Dr. Beulah Catherine DO Work Phone: [facility] 05-20-2024 09:59-0500 SaO2% (BldA) [Mass fraction] 95 % Dr. Beulah Catherine DO Work Phone: [facility] 05-20-2024 09:59-0500 Systolic blood pressure 146 mm[Hg] Dr. Beulah Catherine DO Work Phone: [facility] 05-06-2024 10:40-0500 Heart rate 64 /min Marietta Banuelos PROVIDER S[employer] - [employer] ATTENDANT Work Phone: [facility] [employer] 05-06-2024 10:10-0500 Body height 177.8 cm Mariettachristian Banuelos PROVIDER SCRIBE - [employer] PU[employer] ATTENDANT Work Phone: [facility] 05-06-2024 10:10-0500 Body mass index (BMI) [Ratio] 24.54 kg/m2 Mariettachristian Banuelos PROVIDER SCRIBE - G[employer] ATTENDANT Work Phone: [facility] [employer] 05-06-2024 10:10-0500 Body weight 77.56 kg Marietta Banuelos PROVIDER [employer] ATTENDANT Work Phone: [facility] [employer] 05-06-2024 10:10-0500 Diastolic blood pressure 78 mm[Hg] Marietta Banuelos PROVIDER [employer] - [employer] ATTENDANT Work Phone: [facility] [employer] 05-06-2024 10:10-0500 SaO2% (BldA) [Mass fraction] 96 % Marietta Banuelos PROVIDER [employer] - [employer] ATTENDANT Work Phone: [facility] [employer] 05-06-2024 10:10-0500 Systolic blood pressure 138 mm[Hg] Marietta Banuelos PROVIDER [employer] - [employer] ATTENDANT Work Phone: [facility] [employer] 04-27-2024 12:00-0500 Body temperature 98.4 [degF] Galo Gaxiola Work Phone: [facility] 04-27-2024 12:00-0500 Diastolic blood pressure 79 mm[Hg] Galo Koo MD Work Phone: [facility] 04-27-2024 12:00-0500 Heart rate 67 /min Galo Gaxiola Work Phone: [facility] 04-27-2024 12:00-0500 Respiratory rate 18 /min Galo Gaxiola Work Phone: [facility] 04-27-2024 12:00-0500 SaO2% (BldA) [Mass fraction] 97 % Galo Koo MD Work Phone: [facility] 04-27-2024 12:00-0500 Systolic blood pressure 133 mm[Hg] Galo Koo MD Work Phone: [facility] 04-27-2024 10:21-0500 Body height 177.8 cm Galo Gaxiola Work Phone: [facility] 04-27-2024 10:21-0500 Body mass index (BMI) [Ratio] 23.68 kg/m2 Galo Koo MD Work Phone: [facility] 04-27-2024 10:21-0500 Body weight 74.84 kg Galo Gaxiola Work Phone: [facility] 04-13-2024 07:31-0500 Body mass index (BMI) [Ratio] 24.1 kg/m2 Dr. Beulah Catherine DO Work Phone: [facility] 04-13-2024 07:31-0500 Body temperature 97.4 [degF] Dr. Beulah Catherine DO Work Phone: [facility] 04-13-2024 07:31-0500 Body weight 78.[address] Beulah Catherine DO Work Phone: [facility] 04-13-2024 07:31-0500 Diastolic blood pressure 60 mm[Hg] Dr. Beulah Catherine DO Work Phone: [facility] 04-13-2024 07:31-0500 Heart rate 53 /min Dr. Beulah Catherine DO Work Phone: [facility] 04-13-2024 07:31-0500 Respiratory rate 20 /min Dr. Beulah Catherine DO Work Phone: [facility] 04-13-2024 07:31-0500 SaO2% (BldA) [Mass fraction] 97 % Dr. Beulah Catherine DO Work Phone: [facility] 04-13-2024 07:31-0500 Systolic blood pressure 100 mm[Hg] Dr. Beulah Catherine DO Work Phone: [facility] 04-08-2024 12:30-0500 Diastolic blood pressure 61 mm[Hg] Galo Koo MD Work Phone: [facility] 04-08-2024 12:30-0500 Heart rate 49 /min Galo Gaxiola Work Phone: [facility] 04-08-2024 12:30-0500 Respiratory rate 17 /min Galo Gaxiola Work Phone: [facility] 04-08-2024 12:30-0500 Systolic blood pressure 112 mm[Hg] Galo Koo MD Work Phone: [facility] 04-08-2024 10:00-0500 SaO2% (BldA) [Mass fraction] 97 % Galo Koo MD Work Phone: [facility] 04-08-2024 08:07-0500 Body height 177.8 cm Galo Gaxiola Work Phone: [facility] 04-08-2024 08:07-0500 Body mass index (BMI) [Ratio] 24.82 kg/m2 Galo Koo MD Work Phone: [facility] 04-08-2024 08:07-0500 Body weight 78.47 kg Galo Gaxiola Work Phone: [facility] [employer] 03-30-2024 12:57-0500 Diastolic blood pressure 82 mm[Hg] Jensen Treadwell MD Work Phone: [facility] 03-30-2024 12:57-0500 Systolic blood pressure 138 mm[Hg] Jensen Treadwell MD Work Phone: [facility] 03-30-2024 12:47-0500 Body height 177.8 cm Jensen Treadwell MD Work Phone: [email or web address] 03-30-2024 12:47-0500 Body mass index (BMI) [Ratio] 24.82 kg/m2 Jensen Treadwell MD Work Phone: [email or web address] 03-30-2024 12:47-0500 Body weight 78.47 kg Jensen Treadwell MD Work Phone: [facility] 03-30-2024 12:47-0500 Heart rate 51 /min Jensen Treadwell MD Work Phone: [email or web address] 03-30-2024 12:47-0500 SaO2% (BldA) [Mass fraction] 92 % Jensen Treadwell MD Work Phone: [facility] 03-30-2024 12:41-0500 Body height 177.8 cm Galo Gaxiola Work Phone: [facility] 03-30-2024 12:41-0500 Body mass index (BMI) [Ratio] 24.85 kg/m2 Galo Koo MD Work Phone: [facility] 03-30-2024 12:41-0500 Body weight 78.56 kg Galo Gaxiola Work Phone: [facility] 03-30-2024 12:41-0500 Heart rate 51 /min Galo Gaxiola Work Phone: [facility] 03-30-2024 12:41-0500 SaO2% (BldA) [Mass fraction] 92 % Galo Koo MD Work Phone: [facility] 03-12-2024 12:30-0500 Body weight 79.[address] Beulah Catherine DO Work Phone: [facility] 03-12-2024 12:30-0500 Heart rate 60 /min Dr. Beulah Catherine DO Work Phone: [facility] 03-12-2024 12:30-0500 SaO2% (BldA) [Mass fraction] 95 % Dr. Beulah Catherine DO Work Phone: [facility] 03-08-2024 07:18-0500 Body mass index (BMI) [Ratio] 24.7 kg/m2 Dr. Beulah Catherine DO Work Phone: [facility] 03-08-2024 07:18-0500 Body temperature 97.3 [degF] Dr. Beulah Catherine DO Work Phone: [facility] 03-08-2024 07:18-0500 Body weight 78.[address] Beulah Catherine DO Work Phone: [facility] 03-08-2024 07:18-0500 Diastolic blood pressure 69 mm[Hg] Dr. Beulah Catherine DO Work Phone: [facility] 03-08-2024 07:18-0500 Heart rate 52 /min Dr. Beulah Catherine DO Work Phone: [facility] 03-08-2024 07:18-0500 Respiratory rate 18 /min Dr. Beulah Catherine DO Work Phone: [facility] 03-08-2024 07:18-0500 SaO2% (BldA) [Mass fraction] 94 % Dr. Beulah Catherine DO Work Phone: [facility] 03-08-2024 07:18-0500 Systolic blood pressure 124 mm[Hg] Dr. Beulah Catherine DO Work Phone: [facility] 03-01-2024 10:47-0500 Body mass index (BMI) [Ratio] 25.8 kg/m2 Dr. Beulah Catherine DO Work Phone: [facility] 03-01-2024 10:47-0500 Body weight 81.[address] Beulah Catherine DO Work Phone: [facility] 03-01-2024 10:47-0500 Diastolic blood pressure 71 mm[Hg] Dr. Beulah Catherine DO Work Phone: [facility] 03-01-2024 10:47-0500 Heart rate 55 /min Dr. Beulah Catherine DO Work Phone: [facility] 03-01-2024 10:47-0500 Respiratory rate 18 /min Dr. Beulah Catherine DO Work Phone: [facility] 03-01-2024 10:47-0500 SaO2% (BldA) [Mass fraction] 95 % Dr. Beulah Catherine DO Work Phone: [facility] 03-01-2024 10:47-0500 Systolic blood pressure 155 mm[Hg] Dr. Beulah Catherine DO Work Phone: [facility] 05-15-2023 14:31-0500 Heart rate 76 /min Dr. Beulah Catherine Work Phone: [facility] 05-15-2023 14:31-0500 Respiratory rate 16 /min Dr. Beulah Catherine Work Phone: [facility] 05-15-2023 14:07-0500 Body temperature 98.7 [degF] Dr. Beulah Catherine Work Phone: [facility] 05-15-2023 14:07-0500 Diastolic blood pressure 61 mm[Hg] Dr. Beulah Catherine Work Phone: [facility] 05-15-2023 14:07-0500 SaO2% (BldA) [Mass fraction] 96 % Dr. Beulah Catherine Work Phone: [facility] 05-15-2023 14:07-0500 Systolic blood pressure 104 mm[Hg] Dr. Beulah Catherine Work Phone: [facility] 05-15-2023 07:08-0500 Inhaled oxygen flow rate 1.5 L/min Dr. Beulah Catherine Work Phone: [facility] 05-14-2023 18:40-0500 Body height 177.[address] Beulah Catherine Work Phone: [facility] 05-14-2023 18:40-0500 Body mass index (BMI) [Ratio] 23.3 kg/m2 Dr. Beulah Catherine Work Phone: [facility] 05-14-2023 18:40-0500 Body weight [address] Beulah Catherine Work Phone: [facility] 05-14-2023 17:38-0500 Inhaled oxygen concentration 21 % Dr. Beulah Catherine Work Phone: [facility] 05-02-2023 12:44-0500 Body height 177.[address] Beulah Catherine Work Phone: [facility] 05-02-2023 12:44-0500 Body weight 72.[address] Beulah Catherine Work Phone: [facility] 05-02-2023 12:44-0500 Heart rate 63 /min Dr. Beulah Catherine Work Phone: [facility] 05-02-2023 12:44-0500 SaO2% (BldA) [Mass fraction] 98 % Dr. Beulah Catherine Work Phone: [facility] 04-30-2023 05:47-0500 Body mass index (BMI) [Ratio] 22.5 kg/m2 Dr. Beulah Catherine Work Phone: [facility] 04-30-2023 05:47-0500 Body temperature 97 [degF] Dr. Beulah Catherine Work Phone: [facility] 04-30-2023 05:47-0500 Body weight 71.[address] Beulah Catherine Work Phone: [facility] 04-30-2023 05:47-0500 Diastolic blood pressure 71 mm[Hg] Dr. Beulah Catherine Work Phone: [facility] 04-30-2023 05:47-0500 Heart rate 49 /min Dr. Beulah Catherine Work Phone: [facility] 04-30-2023 05:47-0500 Respiratory rate 18 /min Dr. Beulah Catherine Work Phone: [facility] 04-30-2023 05:47-0500 SaO2% (BldA) [Mass fraction] 99 % Dr. Beulah Catherine Work Phone: [facility] 04-30-2023 05:47-0500 Systolic blood pressure 134 mm[Hg] Dr. Beulah Catherine Work Phone: [facility] 04-21-2023 10:51-0500 Body mass index (BMI) [Ratio] 23.5 kg/m2 Dr. Beulah Catherine Work Phone: [facility] 04-21-2023 10:51-0500 Body weight 74.[address] Beulah Catherine Work Phone: [facility] 04-21-2023 10:51-0500 Diastolic blood pressure 76 mm[Hg] Dr. Beulah Catherine Work Phone: [facility] 04-21-2023 10:51-0500 Heart rate 53 /min Dr. Beulah Catherine Work Phone: [facility] 04-21-2023 10:51-0500 Respiratory rate 18 /min Dr. Beulah Catherine Work Phone: [facility] 04-21-2023 10:51-0500 Systolic blood pressure 148 mm[Hg] Dr. Beulah Catherine Work Phone: [facility] 01-28-2023 08:54-0500 Body height 177.[address] Beulah Catherine Work Phone: [facility] 01-28-2023 08:54-0500 Body mass index (BMI) [Ratio] 23.3 kg/m2 Dr. Beulah Catherine Work Phone: [facility] 01-28-2023 08:54-0500 Body weight 73.[address] Beulah Catherine Work Phone: [facility] 12-06-2022 09:04-0400 Body height 177.[address] Beulah Catherine Work Phone: [facility] 12-06-2022 09:04-0400 Body mass index (BMI) [Ratio] 22.5 kg/m2 Dr. Beulah Catherine Work Phone: [facility] 12-06-2022 09:04-0400 Body weight 71.[address] Beulah Catherine Work Phone: [facility] 12-06-2022 09:04-0400 Diastolic blood pressure 71 mm[Hg] Dr. Beulah Catherine Work Phone: [facility] 12-06-2022 09:04-0400 Heart rate 51 /min Dr. Beulah Catherine Work Phone: [facility] 12-06-2022 09:04-0400 Respiratory rate 16 /min Dr. Beulah Catherine Work Phone: [facility] 12-06-2022 09:04-0400 Systolic blood pressure 120 mm[Hg] Dr. Beulah Catherine Work Phone: [facility] 04-01-2022 09:29-0500 Body height 177.[address] Beulah Catherine Work Phone: [facility] 04-01-2022 09:29-0500 Body mass index (BMI) [Ratio] 22.7 kg/m2 Dr. Beulah Catherine Work Phone: [facility] 04-01-2022 09:29-0500 Body weight 71.[address] Beulah Catherine Work Phone: [facility] 04-01-2022 09:29-0500 Diastolic blood pressure 58 mm[Hg] Dr. Beulah Catherine Work Phone: [facility] 04-01-2022 09:29-0500 Heart rate 52 /min Dr. Beulah Catherine Work Phone: [facility] 04-01-2022 09:29-0500 Respiratory rate 18 /min Dr. Beulah Catherine Work Phone: [facility] 04-01-2022 09:29-0500 Systolic blood pressure 100 mm[Hg] Dr. Beulah Catherine Work Phone: [facility] 10-18-2021 09:30-0400 Body temperature 96.5 [degF] Dr. Beulah Catherine Work Phone: [facility] Work Phone: 10-18-2021 09:30-0400 Diastolic blood pressure 86 mm[Hg] Dr. Beulah Catherine Work Phone: [facility] Work Phone: 10-18-2021 09:30-0400 Heart rate 55 /min Dr. Beulah Catherine Work Phone: [facility] Work Phone: 10-18-2021 09:30-0400 Respiratory rate 16 /min Dr. Beulah Catherine Work Phone: [facility] Work Phone: 10-18-2021 09:30-0400 SaO2% (BldA) [Mass fraction] 99 % Dr. Beulah Catherine Work Phone: [facility] Work Phone: 10-18-2021 09:30-0400 Systolic blood pressure 143 mm[Hg] Dr. Beulah Catherine Work Phone: [facility] Work Phone: 10-18-2021 06:44-0400 Body height 177.[address] Beulah Catherine Work Phone: [facility] Work Phone: 10-18-2021 06:44-0400 Body mass index (BMI) [Ratio] 21.2 kg/m2 Dr. Beulah Catherine Work Phone: [facility] Work Phone: 10-18-2021 06:44-0400 Body weight [address] Beulah Catherine Work Phone: [facility] Work Phone: 09-07-2021 09:14-0400 Body mass index (BMI) [Ratio] 22.2 kg/m2 Dr. Beulah Catherine Work Phone: [facility] Work Phone: 09-07-2021 09:14-0400 Body weight 70.[address] Beulah Catherine Work Phone: [facility] Work Phone: 09-07-2021 09:14-0400 Diastolic blood pressure 70 mm[Hg] Dr. Beulah Catherine Work Phone: [facility] Work Phone: 09-07-2021 09:14-0400 Heart rate 52 /min Dr. Beulah Catherine Work Phone: [facility] Work Phone: 09-07-2021 09:14-0400 Respiratory rate 16 /min Dr. Beulah Catherine Work Phone: [facility] Work Phone: 09-07-2021 09:14-0400 Systolic blood pressure 128 mm[Hg] Dr. Beulah Catherine Work Phone: [facility] Work Phone: 09-06-2021 09:16-0400 Body mass index (BMI) [Ratio] 22.9 kg/m2 Dr. Beulah Catherine Work Phone: [facility] Work Phone: 09-06-2021 09:16-0400 Body weight 72.[address] Beulah Catehrine Work Phone: [facility] Work Phone: 09-06-2021 09:16-0400 Diastolic blood pressure 71 mm[Hg] Dr. Beulah Catherine Work Phone: [facility] Work Phone: 09-06-2021 09:16-0400 Respiratory rate 18 /min Dr. Beulah Catherine Work Phone: [facility] Work Phone: 09-06-2021 09:16-0400 Systolic blood pressure 131 mm[Hg] Dr. Beulah Catherine Work Phone: [facility] Work Phone: 11-13-2016 09:14-0400 BMI (Body Mass Index) 24.16 kg/m2 Yuliana [facility] Work Phone: 11-13-2016 09:14-0400 BP Diastolic 70 mm[Hg] [facility] Work Phone: 11-13-2016 09:14-0400 BP Systolic 112 mm[Hg] Yuliana [facility] Work Phone: 11-13-2016 09:14-0400 Height 175.26 cm Yuliana [facility] Work Phone: 11-13-2016 09:14-0400 Pulse (Heart Rate) 54 /min Yul[facility] Work Phone: 11-13-2016 09:14-0400 Weight 74.21 kg Yuliana Lema [facility] Work Phone: 05-06-2016 15:21-0500 BMI (Body Mass Index) 23.33 kg/m2 Monroe Mckeon [employer] [facility] Work Phone: 05-06-2016 15:21-0500 BP Diastolic 72 mm[Hg] Monroe Mckeon [employer] [facility] Work Phone: 05-06-2016 15:21-0500 BP Systolic 124 mm[Hg] Monroe Mckeon [employer] [facility] Work Phone: 05-06-2016 15:21-0500 BSA (Body Surface Area) 1.87 m2 Monroe Mckeon [employer] [facility] Work Phone: 05-06-2016 15:21-0500 Pulse (Heart Rate) 56 /min Monroe Mckeon [employer] [facility] Work Phone: 05-06-2016 15:21-0500 Respiratory Rate 16 /min Monroe Mckeon [employer] [facility] Work Phone: 05-06-2016 15:21-0500 Weight 71.67 kg Monroe Mckeon [employer] [facility] Work Phone: 05-17-2014 11:31-0500 Body Temperature 97.2 [degF] Monroe Mckeon [employer] [facility] Work Phone: 12-28-2013 08:52-0400 Height 175.26 cm Monroe Linda [employer] [facility] Work Phone: 08-14-2011 12:15-0400 Heart rate 429 ms Yuliana Lema [facility] Work Phone: 08-14-2011 12:15-0400 Heart rate 55 /min Yuliana Lema [facility] Work Phone: 05-15-2011 12:41-0500 Pulse (Heart Rate) 68 /min Monroe Linda [employer] [facility] Work Phone: 07-12-2010 09:50-0400 BP Diastolic 96 mm[Hg] Monroe Linda [employer] [facility] Work Phone: 07-12-2010 09:50-0400 BP Systolic 146 mm[Hg] Monroe Mckeon [employer] [facility] Work Phone: Encounters Encounter Date Encounter Type Care Provider Facility Start: 09-16-2024 Patient encounter procedure ST[employer] DRILLER Marisel Burt -Pulmonary Services/Neurology Work Phone: Start: 09-16-2024 ambulatory Marisel Burt [facility] [place] ty:[facility] Start: 09-13-2024 End: 09-13-2024 Patient encounter procedure STONE DRILLER Mariesl Burt -[facility] [place] Work Phone: Start: 09-13-2024 End: 09-13-2024 ambulatory Marisel Burt Facility:[facility] Start: 09-08-2024 End: 09-08-2024 Patient encounter procedure JANNETH Burt -[facility] Work Phone: Start: 09-08-2024 End: 09-08-[address] Beulah Catherine DO Work Phone: [facility] Work Phone: Start: 09-03-2024 End: 09-03-[address] Bernard Bullock MD -[facility] Work Phone: Start: 09-03-2024 End: 09-03-[address] Beulah Catherine DO Work Phone: [facility] Work Phone: Start: 09-01-2024 ambulatory Beulah Catherine Facility:[facility] Start: 08-13-2024 End: 08-13-[address] Beulah Catherine DO Work Phone: [facility] Work Phone: Start: 08-13-2024 End: 08-13-2024 Patient encounter [facility] [place] Work Phone: Start: 08-13-2024 End: 08-13-2024 ambulatory Marisel Burt Facility:[facility] Start: 07-29-2024 End: 07-29-[address] Amarjit Irving MD -[facility] Work Phone: Start: 07-29-2024 End: 07-29-2024 ambulatory Amarjit Irving Facility:[facility] [place] [place] Start: 07-23-2024 End: 08-21-[address] Bernard Bullock MD -Cardiac Rehab Work Phone: Start: 07-23-[address] Bernard bender MD -Cardiac Rehab Work Phone: Start: 07-23-2024 End: 08-21-[address] Beulah Catherine DO Work Phone: [facility] Work Phone: Start: 07-09-2024 End: 07-21-2024 ambulatory Beulah Catherine Facility:[facility] Start: 07-09-2024 End: 07-21-[address] eBrnard Bullock MD -Cardiac Rehab Work Phone: Start: 07-08-2024 End: 07-08-2024 Patient encounter procedure SYLVIE OSMAN MD -[facility] Work Phone: Start: 07-08-2024 End: 07-08-2024 ambulatory SYLVIE OSMAN Facility:[facility] Start: 06-21-2024 End: 06-21-[address] Beulah Catherine DO Work Phone: [facility] Work Phone: Start: 06-21-2024 End: 06-21-[address] Bernard Bullock MD -Cardiac Rehab Work Phone: Start: 06-14-[address] Bernard bender MD -Cardiac Rehab Work Phone: Start: 06-11-[address] Bernard bender MD -Cardiac Rehab Work Phone: Start: 06-09-2024 End: 06-09-2024 Patient encounter procedure [employer]ER Marisel Burt -[facility] Work Phone: Start: 06-09-2024 End: 06-09-2024 ambulatory Marisel Burt Facility:[facility] [place] [place] Start: 06-04-2024 End: 06-04-[address] Beulah Catherine DO Work Phone: [facility] Work Phone: Start: 06-04-2024 End: 06-04-2024 Patient encounter procedure MARIETTA BANUELOS [facility]-C -Laboratory Work Phone: Start: 06-03-2024 End: 06-03-2024 Subsequent hospital visit by physician Marietta Banuelos PROVIDER [employer] ATTENDANT Work Phone: [facility] Comment on above: Severe aortic stenos is Start: 06-03-2024 End: 06-03-2024 Office outpatient visit 25 minutes Marietta Banuelos PROVID[employer] ATTENDANT Work Phone: [facility] [place] Comment on above: Severe aortic stenos is (Primary Dx); S/P TAVR (transcatheter aortic valve replacement); Coronary artery disease involving [place] coronary artery of [place] heart without angina pectoris; Essential hypertension Start: 06-03-2024 End: 06-04-2024 ambulatory MARIETTA BANUELOS [facility] Start: 06-01-2024 End: 06-01-[address] Beulah Catherine DO Work Phone: [facility] Work Phone: Start: 06-01-2024 End: 06-01-[address] Bernard Bullock MD -Cardiac Rehab Work Phone: Start: 06-01-2024 End: 06-01-2024 ambulatory Bernard Bullock Facility:[facility] Start: 05-20-2024 End: 05-20-2024 Patient encounter procedure Almaz STEVESN -[facility] Work Phone: Start: 05-20-2024 End: 05-20-2024 ambulatory Almaz STEVENS Facility:[facility] [place] [place] Start: 05-06-2024 End: 05-06-2024 Office outpatient visit 25 minutes Marietta Banuelos PROVID[employer] - [employer] ATTEND[employer] Work Phone: [facility] Comment on above: Severe aortic stenos is (Primary Dx); Coronary artery disease involving [place] coronary artery of [place] heart without angina pectoris; Essential hypertension; Mixed hyperlipidemia; S/P TAVR (transcatheter aortic valve replacement) Start: 05-06-2024 End: 05-06-2024 ambulatory MARIETTA BANUELOS [facility] Start: 04-27-2024 End: 04-27-2024 Orders Only Marietta Banuelos [employer] ATTEND[employer] Work Phone: [facility] Comment on above: Severe aortic stenos is (Primary Dx) Start: 04-26-2024 End: 04-27-2024 Evaluation and management of inpatient Galo Koo MD Work Phone: [facility] Cardiac Thoracic Vascular Intensive Care Unit CTV ICU T1 Comment on above: Severe aortic stenos is (Primary Dx) Start: 04-23-2024 End: 04-23-2024 ambulatory [place] Banuelos PROVIDER SCRIBE - GAS PUMP ATTENDANT Work Phone: [facility] [email or web address] Comment on above: Severe aortic stenos is (Primary Dx) Start: 04-20-2024 End: 04-20-2024 Subsequent hospital visit by physician [place] Banuelos PROVIDER SCRIBE - GAS PUMP ATTENDANT Work Phone: [facility] 95 Arch X-ray Comment on above: Nonrheumatic aortic valve stenosis Severe aortic stenos is Start: 04-20-2024 End: 04-20-2024 ambulatory [place] BANUELOS [facility] Start: 04-20-2024 End: 04-20-2024 ambulatory BEULAHHelena CATHERINE [facility] Start: 04-13-2024 ambulatory Christiana Sloan Facility: [facility] Start: 04-13-2024 Non-patient / Non-visit Christiana patel RN -[facility] Work Phone: Start: 04-13-2024 End: 04-13-2024 Patient encounter procedure [place]TA QUIROGA -[place] Work Phone: Start: 04-13-2024 End: 04-13-2024 Patient encounter procedure STONE DRILLER Marisel Burt -[facility] Work Phone: Start: 04-13-2024 End: 04-13-2024 ambulatory Marisel Burt Facility:[facility] [place] [place] Start: 04-13-2024 End: 04-13-2024 ambulatory [place] BANUELOS Facility:[facility] Start: 04-08-2024 End: 04-08-2024 ambulatory GALO KOO [facility] Start: 04-08-2024 End: 04-08-2024 Subsequent hospital visit by physician Galo Koo MD Work Phone: [facility] Cath/EP Lab Comment on above: Nonrheumatic aortic valve stenosis Start: 04-06-2024 End: 04-06-2024 ambulatory Almaz Heard APRN - GAS PUMP ATTENDANT Work Phone: [facility] Cardiology - [place] Start: 03-31-2024 End: 03-31-[address] Beulah Catherine DO Work Phone: -[facility] [place] Work Phone: Start: 03-30-2024 End: 04-12-2024 Telephone encounter Galo Koo MD Work Phone: [facility] [email or web address] Comment on above: Procedure (L/RHC) Start: 03-30-2024 End: 03-30-2024 Office consultation new/estab patient 80 min Jensen Treadwell MD Work Phone: [facility] Cardiology [place] Comment on above: Nonrheumatic aortic valve stenosis (Primary Dx) Start: 03-30-2024 End: 03-30-2024 Office outpatient new 60 minutes Galo Koo MD Work Phone: [facility] [email or web address] [place] Comment on above: Essential hypertensi on; Nonrheumatic aortic valve stenosis Start: 03-30-2024 End: 03-31-2024 ambulatory JENSEN TREADWELL [facility] Start: 03-30-2024 ambulatory Bj Hayden Facility:[facility] Start: 03-30-2024 Non-patient / Non-visit Dr. Bj bryant MD -[facility] Start: 03-30-2024 End: 03-30-[address] Bernard Bullock MD -Cardiovascular Services Work Phone: Start: 03-30-2024 End: 03-30-2024 ambulatory Bernard Bullock Facility:[facility] Start: 03-25-2024 End: 03-25-2024 Patient encounter procedure Honey Monge STONE DRILLER-C -Cat Scan, [facility] Work Phone: Start: 03-25-2024 End: 03-25-2024 ambulatory Honey Monge STONE DRILLER Facility:[facility] Start: 03-15-2024 ambulatory Honey Monge STONE DRILLER Fac ility:[facility] Start: 03-15-2024 Non-patient / Non-visit Dr. Manuel hinson DO -[facility] Start: 03-12-2024 End: 03-12-2024 Patient encounter procedure Honey Monge NP-C -Pulmonary Services/Neurology Work Phone: Start: 03-12-2024 End: 03-12-2024 ambulatory Honey Monge NP Facility:[facility] Start: 03-10-2024 End: 03-10-2024 Patient encounter procedure Honey Monge STONE DRILLER-C -Pulmonary Services/Neurology Work Phone: Start: 03-10-2024 ambulatory Manuel Dominguez Facility:[facility] Start: 03-10-2024 End: 03-10-2024 ambulatory Honey Monge STONE DRILLER Facility:[facility] Start: 03-08-2024 End: 03-08-2024 Patient encounter procedure Honey Monge STONE DRILLER-C -[facility] Work Phone: Start: 03-08-2024 End: 03-08-2024 ambulatory Honey Monge STONE DRILLER Facility:[facility] Start: 03-01-2024 End: 03-01-[address] Bernard Bullock MD -[facility] Work Phone: Start: 03-01-2024 End: 03-01-2024 ambulatory Beulah Catherine Facility:[facility] Start: 12-26-2023 End: 12-26-2023 ambulatory Amarjit Irving Facility:[facility] Start: 12-25-2023 ambulatory Beulah Catherine Facility:[facility] Start: 12-25-2023 End: 12-25-2023 ambulatory Beulahhelena Catherine Facility:[facility] Start: 12-10-2023 End: 12-10-2023 ambulatory Amarjit Irving Facility:[facility] Start: 12-03-2023 End: 12-03-2023 ambulatory Beulah Catherine Facility:[facility] Start: 12-03-2023 End: 12-03-2023 ambulatory Beulahhelena Catherine Facility:[facility] Start: 11-13-2023 End: 11-13-2023 ambulatory [facility] Facility:[facility] Start: 05-15-2023 Non-patient / Non-visit Dr. Lluvia Catherine Work Phone: [facility] Work Phone: Start: 05-15-2023 Non-patient / Non-visit [facility]. Lluvia Catherine [facility] Start: 05-14-2023 Non-patient / Non-visit Dr. Lluvia Catherine Work Phone: [facility] Work Phone: Start: 05-14-2023 Non-patient / Non-visit Dr. Lluvia Catherine Work Phone: [facility] Start: 05-14-2023 End: 05-15-2023 Evaluation and management of inpatient Dr. Beulah Catherine Work Phone: [facility]-Medical Surgical 3 Work Phone: Start: 05-13-[address] Beulah Catherine Work Phone: [facility]-Sleep Lab Work Phone: Start: 05-07-2023 End: 05-07-[address] Beulah Catherine Work Phone: [facility] Work Phone: Start: 05-07-2023 End: 05-07-[address] Beulah Catherine Work Phone: [facility]essa [facility] Start: 05-07-2023 End: 05-07-[address] Beulah Catherine Work Phone: [facility] Work Phone: Start: 05-07-2023 End: 05-07-[address] Beulah Catherine Work Phone: [facility]-Sleep Lab Work Phone: Start: 05-05-2023 Non-patient / Non-visit Dr. Lluvia Catherine Work Phone: [facility] Start: 05-02-2023 End: 05-02-[address] Beulah Catherine Work Phone: [facility] Work Phone: Start: 05-02-2023 End: 05-02-[address] Beulah Catherine Work Phone: [facility] Work Phone: Start: 05-02-2023 End: 05-02-[address] Beulah Catherine Work Phone: [facility]-Pulmonary Services/Neurology Work Phone: Start: 04-30-2023 End: 04-30-2023 Non-patient / Non-visit Dr. Beulah Catherine Work Phone: [facility] Work Phone: Start: 04-30-2023 End: 04-30-[address] Beulah Catherine Work Phone: [facility]-Pulmonary Medicine [facility] Work Phone: Start: 04-21-2023 End: 04-21-[address] Beulah Catherine Work Phone: [facility] Work Phone: Start: 04-01-2023 End: 04-01-[address] Beulah Catherine Work Phone: [facility] Work Phone: Start: 03-27-2023 End: 03-27-[address] Beulah Catherine Work Phone: [facility] Work Phone: Start: 03-27-2023 End: 03-27-[address] Beulah Catherine Work Phone: [facility] Work Phone: Start: 02-28-2023 End: 02-28-[address] Beulah Catherine Work Phone: [facility] Work Phone: Start: 02-26-2023 End: 02-26-[address] Beulah Catherine Work Phone: [facility] Work Phone: Start: 02-26-2023 End: 02-26-[address] Beulah Catherine Work Phone: [facility] Work Phone: Start: 01-28-2023 End: 01-28-[address] Beulah Catherine Work Phone: [facility] Work Phone: Start: 01-13-2023 Non-patient / Non-visit Dr. Lluvia Catherine Work Phone: [facility] Start: 01-13-2023 End: 01-13-[address] Beulah Catherine Work Phone: [facility] Work Phone: Start: 01-13-2023 End: 01-13-[address] [facility] Work Phone: Start: 12-16-2022 Non-patient / Non-visit Dr. Lluvia Catherine Work Phone: [facility] Start: 12-16-2022 End: 12-16-[address] Beulah Catherine Work Phone: [facility] Work Phone: Start: 12-16-2022 End: 12-16-[address] Beulah Catherine Work Phone: [facility]-Cardiovascul ar Services Work Phone: Start: 12-06-2022 End: 12-06-[address] Beulah Catherine Work Phone: [facility] Work Phone: Start: 10-23-2022 End: 10-23-2022 ambulatory [facility] Work Phone: Start: 10-23-2022 End: 10-23-2022 Patient encounter procedure [facility] Start: 07-22-2022 End: 07-22-[address] Beulah Catherine Work Phone: [facility] Work Phone: Start: 07-22-2022 End: 07-22-[address] Beulah Catherine Work Phone: [facility] Start: 04-05-2022 End: 04-05-[address] Beulah Catherine Work Phone: [facility] Work Phone: Start: 04-05-2022 End: 04-05-[address] Beulah Catherine [facility] Start: 04-01-2022 End: 04-01-[address] Beulah Catherine Work Phone: [facility] Start: 10-18-2021 Non-patient / Non-visit Dr. Lluvia Catherine Work Phone: [facility] Start: 10-18-2021 End: 10-18-2021 Admission to same day surgery center Dr. Beulah Catherine Work Phone: [facility]-Endoscopy Start: 10-04-2021 Non-patient / Non-visit Dr. Lluvia Catherine Work Phone: [facility] Start: 10-04-2021 End: 10-04-[address] Beulah Catherine Work Phone: [facility]-Cardiovascul ar Services Start: 09-07-[address] Beulah Catherine Work Phone: [facility] Start: 09-07-2021 End: 09-07-2021 Admission to same day surgery center Dr. Beulah Catherine Work Phone: [facility] Start: 09-07-2021 End: 09-07-[address] Beulah Catherine Work Phone: [facility] Start: 09-06-2021 End: 09-06-[address] Beulah Catherine Work Phone: [facility] Start: 07-16-2021 End: 07-16-[address] [facility] Date Procedure Procedure Detail Performing Clinician Start: 07-29-2024 X-ray of lumbosacral spine Dr. Beulah Catherine DO Work Phone: Start: 07-08-2024 Antibody to lupus [place] protein measurement Dr. Beulah Catherine DO Work Phone: Comment on above: Performed at: [address] [id number] Director: Lon Lou PhD, Phone: [phone] Start: 07-08-2024 Antibody to SS-A measurement Dr. Beulah Catherine DO Work Phone: Start: 06-03-2024 Echo tthrc r-t 2d w/wom-mode compl spec&colr d [place] Banuelos PROVIDER SCRIBE - GAS PUMP ATTENDANT Work Phone: Start: 06-03-2024 Ecg routine ecg w/le ast 12 lds trcg only w/o i&r Galo Koo MD Work Phone: Start: 05-06-2024 Ecg routine ecg w/le ast 12 lds trcg only w/o i&r Galo Koo MD Work Phone: Start: 04-27-2024 Echo tthrc r-t 2d w/wom-mode compl spec&colr d Almaz Heard PROVIDER SCRIBE - GAS PUMP ATTENDANT Work Phone: Start: 04-27-2024 Ecg routine ecg w/le ast 12 lds trcg only w/o i&r Almaz Heard PROVIDER SCRIBE - GAS PUMP ATTENDANT Work Phone: Start: 04-27-2024 Ecg routine ecg w/le ast 12 lds trcg only w/o i&r Almaz Heard PROVIDER SCRIBE - GAS PUMP ATTENDANT Work Phone: Start: 04-27-2024 Basic metabolic pane l calcium total Alamz Heard PROVIDER SCRIBE - GAS PUMP ATTENDANT Work Phone: Start: 04-26-2024 Echo transthorc r-t 2d w/wo m-mode rec f-up/lmtd Galo Koo MD Work Phone: Start: 04-26-2024 Basic metabolic pane l calcium total Almaz Heard PROVIDER SCRIBE - GAS PUMP ATTENDANT Work Phone: Start: 04-26-2024 OXYGEN THERAPY Almaz Sky Félix PROVIDER SCRIBE - GAS PUMP ATTENDANT Work Phone: Start: 04-26-2024 Cardiac catheterizat ion study Galo Koo MD Work Phone: Start: 04-26-2024 POCT ACT Galo chen MD Work Phone: Start: 04-26-2024 End: 04-26-2024 TRANSCATHETER AORTIC VALVE REPLACEMENT (TAVR) - OR Bj Herring MD Work Phone: Start: 04-26-2024 Antibody screen GALO NUÑEZ Comment on above: Performed By: #### L [id number] ####Almond Grinder: KECIA TOPETE ([phone])[facility] ([address] Start: 04-26-2024 ABO and Rh group [Ty pe] in Blood by Confirmatory method [place] Lakisha PROVIDER SCRIBE - GAS PUMP ATTENDANT Work Phone: Start: 04-26-2024 Blood typing serologic abo [place] Banuelos PROVIDER SCRIBE - GAS PUMP ATTENDANT Work Phone: Start: 04-20-2024 Radiologic exam ches t 2 views [place] Lakisha PROVIDER SCRIBE - GAS PUMP ATTENDANT Work Phone: Start: 04-20-2024 Ct angiography chest w/contrast/noncontrast [place] Banuelos PROVIDER SCRIBE - GAS PUMP ATTENDANT Work Phone: Start: 03-30-2024 Ecg routine ecg w/le ast 12 lds trcg only w/o i&r Galo Koo MD Work Phone: Start: 03-25-[address] Beulah moise DO Work Phone: Start: 05-15-2023 X-ray of lumbar spin e, two or three views Dr. Beulah Catherine Work Phone: Start: 05-14-2023 Fluoroscopic guidance Khalida Catherine Work Phone: Start: 05-14-2023 X-ray of lumbar spin e, two or three views Dr. Beulah Catherine Work Phone: Start: 05-14-2023 360 Lumbar Fusion (N ot Applicable) Dr. Beulah Catherine Work Phone: Start: 04-30-2023 Nasal Screen MRSA/MSSA Dr. Beulah Catherine Work Phone: Start: 03-27-2023 MRI of cervical spine Khalida Catherine Work Phone: Start: 02-26-2023 MRI of lumbar spine Dr. Beulah Catherine Work Phone: Start: 01-28-2023 X-ray of lumbosacral spine Dr. Beulah Catherine Work Phone: Start: 01-13-2023 Cardiovascular stres s test using pharmacologic stress agent Dr. Beulah Catherine Work Phone: Start: 10-18-[address] Beulah moise Work Phone: Start: 11-13-2016 End: 11-13-2016 Follow Up Appt 6 months oMnroe Mckeon NP Work Phone: Start: 11-13-2016 End: 11-13-2016 PFM Monroe Mckeon STONE DRILLER Work Phone: Start: 11-07-2016 Lipid 1996 panel - S damien or Plasma Jensen Treadwell MD Work Phone: Start: 11-07-2016 End: 11-08-2016 *Hepatic [...] Treatment Date Care Activity Detail Author Start: 09-23-2024 Walking distance 6 minutes [facility] Start: 06-03-2024 End: 06-03-2025 Basic metabolic 1998 panel - Serum or Plasma Basic metabolic panel Lab Routine Severe aortic stenosis Expected: 06/03/2024 (Approximate), Expires: 06/03/2025 [employer] Work Phone: Comment on above: Expected: 06/03/2024 (Approximate), Expi res: 06/03/2025 Start: 06-03-2024 End: 06-03-2025 CBC panel - Blood by Automated count CBC Lab Routine Severe aortic stenosis Expected: 06/03/2024 (Approximate), Expires: 06/03/2025 [email or web address] Comment on above: Expected: 06/03/2024 (Approximate), Expi res: 06/03/2025 Start: 06-03-2024 End: 06-03-2024 Patient encounter procedure [email or web address] - [place] Start: 05-25-2024 End: 04-27-2026 US Heart Transthoracic Transthoracic echocardiogram (TTE) complete with contrast, bubble, strain, and 3D PRN CV Echocardiography Routine Severe aortic stenosis Expected: 05/25/2024 (Approximate), Expires: 04/27/2026 [employer] Work Phone: Comment on above: Expected: 05/25/2024 (Approximate), Expi res: 04/27/2026 Start: 05-20-2024 Patient referral [facility] Work Phone: Start: 05-06-2024 End: 05-06-2024 Patient encounter procedure 05/06/2024 10:30 AM EST Office Visit [facility] [place] [address] [place] [phone] [place] Banuelos APRN - CNP [address] [place], [place] [phone] [facility] Start: 04-26-2024 End: 04-26-2024 Admission to same day surgery center 04/26/2024 7:30 AM EST - 04/26/2024 9:15 AM EST Surgery [facility] MAIN OR [address] [place] [address] Galo Koo MD [address] [address] TRANSCATHETER AORTIC VALVE REPLACEMENT, TRANSTHORACIC ECHOCARDIOGRAM [facility] OR Comment on above: TRANSCATHETER AORTIC VALVE REPLACEMENT, TRANSTHORACIC ECHOCARDIOGRAM Start: 04-26-2024 End: 04-26-2024 Anesthesia consultation 04/26/2024 7:30 AM EST Anesthesia Event [facility] MA[facility] OR [address] [place] [phone] Steven Dela Cruz MD [address] [place] [phone] [facility] Start: 04-26-2024 Subsequent hospital visit by physician [facility] Comment on above: Severe aortic stenosis Start: 04-26-2024 End: 04-26-2024 TRANSCATHETER AORTIC VALVE REPLACEMENT (TAVR) - OR TRANSCATHETER AORTIC VALVE REPLACEMENT (TAVR) - OR Severe aortic stenosis 04/26/2024 7:30 AM EST [facility] Start: 04-20-2024 End: 04-20-2024 Clinical Support [facility] Start: 04-08-2024 End: 04-08-2025 Basic metabolic 1998 panel - Serum or Plasma Basic metabolic panel Lab Routine Severe aortic stenosis Expected: 04/08/2024 (Approximate), Expires: 04/08/2025 [facility] [employer] Work Phone: Comment on above: Expected: 04/08/2024 (Approximate), Expi res: 04/08/2025 Start: 04-08-2024 End: 04-08-2025 CT Chest WO and CT angiogram Coronary arteries W contrast IV CTA Angiogram TAVR Imaging Routine Severe aortic stenosis Expected: 04/08/2024, Expires: 04/08/2025 [facility] Comment on above: Expected: 04/08/2024, Expires: Start: 04-08-2024 End: 04-08-2024 Admission to same day surgery center 04/08/2024 9:00 AM EST - 04/08/2024 10:00 AM EST Surgery [facility] Cath/EP Lab [address] [place] [address] Galo Koo MD [address] [place] [address] Left and right heart cath / coronary angiography [facility] Cath/EP Lab Comment on above: Left and right heart cath / coronary ang iography Start: 04-08-2024 Subsequent hospital visit by physician 04/08/2024 9:00 AM EST Hospital Encounter [facility] Cath/EP Lab [address] [place] [phone] Galo Koo MD [address] [place] [address] Nonrheumatic aortic valve stenosis [facility] Cath/EP Lab Comment on above: Nonrheumatic aortic valve stenosis Start: 03-30-2024 End: 03-30-2025 CBC W Auto Differential panel - Blood CBC auto differential Lab Routine Nonrheumatic aortic valve stenosis Expected: 03/30/2024 (Approximate), Expires: 03/30/2025 [facility] [employer] Work Phone: Comment on above: Expected: 03/30/2024 (Approximate), Expi res: 03/30/2025 Start: 03-30-2024 End: 03-30-2025 Comprehensive metabolic 1998 panel - Serum or Plasma Comprehensive metabolic panel Lab Routine Nonrheumatic aortic valve stenosis Expected: 03/30/2024 (Approximate), Expires: 03/30/2025 [employer] Comment on above: Expected: 03/30/2024 (Approximate), Expi res: 03/30/2025 Start: 03-24-2024 Medicare Advantage Annual Wellness Visit Medicare Advantage Annual Wellness Visit [facility] Start: 03-01-2024 Patient referral [facility] Work Phone: Start: 11-23-2023 COVID-19 Vaccine () COVID-19 Vaccine () [facility] Start: 11-23-2023 Influenza vaccination Influenza Vaccine (#1) [facility] Start: 05-15-2023 Patient discharge [facility] Start: 05-15-2023 Referral to occupational therapist [facility] Start: 05-15-2023 Introduction of urinary catheter [facility] Start: 05-14-2023 Following clinical pathway protocol [facility] Start: 05-14-2023 Provision of activity privileges [facility] Start: 05-14-2023 Application of ice collar, cap or bag [facility] Start: 05-14-2023 Application of intermittent pneumatic compression device [facility] Start: 05-14-2023 Catheterization of vein [facility] Start: 05-14-2023 Consultation [facility] Start: 05-14-2023 Following clinical pathway protocol [facility] Start: 05-14-2023 Incentive spirometry [facility] Start: 05-14-2023 Measuring intake and output [facility] Start: 05-14-2023 Neurovascular assessment [facility] Start: 05-14-2023 Patient education [facility] Start: 05-14-2023 Procedure discontinued [facility] Start: 05-14-2023 Taking patient vital signs [facility] Start: 05-14-2023 Admission procedure [facility] Start: 05-14-2023 Referral to service [facility] Start: 05-14-2023 Leukocyte reduced red blood cells [facility] Start: 05-14-2023 End: 05-14-2023 [facility] Start: 05-14-2023 Inhalation therapy procedure [facility] Start: 05-07-2023 Hepatitis B surface antigen measurement [facility] Start: 04-23-2023 Electrocardiographic procedure [facility] Start: 11-07-2021 Lipid panel Lipid Panel [facility] Start: 10-18-2021 Patient discharge [facility] Work Phone: Start: 06-30-2017 End: 06-30-2017 Appointment Appointment [facility] Work Phone: Start: 06-09-2017 End: 11-22-2016 *Hepatic Function Panel *Hepatic Function Panel [facility] Work Phone: Start: 06-09-2017 End: 11-22-2016 Lipid panel [AGGREGATE] *Lipid Profile CC PCP [facility] Work Phone: Start: 11-13-2016 End: 11-13-2016 Appointment Appointment [facility] Work Phone: Start: 11-13-2016 End: 11-13-2016 Follow Up Appt 6 months Follow Up Appt 6 months [facility] Work Phone: Start: 11-13-2016 End: 11-13-2016 PFM PFM [facility] Work Phone: Start: 11-07-2016 End: 11-08-2016 *Hepatic Function Panel *Hepatic Function Panel [facility] Work Phone: Start: 11-07-2016 [...] 05-22-2016 *Hepatic Function Panel *Hepatic Function Panel [facility] Work Phone: Start: 04-24-2016 End: 05-22-2016 Lipid panel [AGGREGATE] *Lipid Profile CC PCP [facility] Work Phone: Start: 01-19-2016 End: 01-30-2016 *Hepatic Function Panel *Hepatic Function Panel [facility] Work Phone: Start: 01-19-2016 End: 01-30-2016 Lipid panel [AGGREGATE] *Lipid Profile CC PCP [facility] Work Phone: Start: 12-13-2015 End: 12-13-2015 Follow Up BP Check Follow Up BP Check [facility] Work Phone: Start: 10-20-2015 End: 10-20-2015 *Hepatic Function Panel *Hepatic Function Panel [facility] Work Phone: Start: 10-20-2015 End: 10-20-2015 Carotid duplex Carotid duplex [facility] Work Phone: Start: 10-20-2015 End: 10-20-2015 Follow Up Appt 6 months Follow Up Appt 6 months [facility] Work Phone: Start: 10-20-2015 End: 10-20-2015 Follow Up Appt Other Follow Up Appt Other [facility] Work Phone: Start: 10-20-2015 End: 10-23-2015 Lipid panel [AGGREGATE] *Lipid Profile CC PCP [facility] Work Phone: Start: 10-20-2015 End: 10-20-2015 PFM PFM [facility] Work Phone: Start: 10-10-2015 End: 10-23-2015 *Hepatic Function Panel *Hepatic Function Panel [facility] Work Phone: Start: 10-10-2015 End: 10-20-2015 Lipid panel [AGGREGATE] *Lipid Profile CC PCP [facility] Work Phone: Start: 04-10-2015 End: [...] 6 months Follow Up Appt 6 months [facility] Work Phone: Start: 04-28-2014 End: 04-11-2015 *Hepatic Function Panel *Hepatic Function Panel [facility] Work Phone: Start: 04-28-2014 End: 04-11-2015 Lipid panel [AGGREGATE] *Lipid Profile CC PCP [facility] Work Phone: Start: 01-31-2014 End: 02-07-2014 Arterial exam Arterial exam [facility] Work Phone: Start: 01-17-2014 End: 01-17-2014 Follow Up Appt 6 months Follow Up Appt 6 months [facility] Work Phone: Start: 01-17-2014 End: 01-17-2014 Follow Up Appt Other Follow Up Appt Other [facility] Work Phone: Start: 01-17-2014 End: 01-17-2014 PFM PFM [facility] Work Phone: Start: 12-28-2013 End: 12-28-2013 Follow Up Appt 3 months Follow Up Appt 3 months [facility] Work Phone: Start: 12-28-2013 End: 12-28-2013 Pulmonary Fuction Test - complete Pulmonary Fuction Test - complete [facility] Work Phone: Start: 12-28-2013 End: 12-28-2013 Pulmonary stress test/simple Pulmonary stress testing; simple (eg, 6-minute walk) [facility] Work Phone: Start: 2013 End: 10-25-2013 *Hepatic Function Panel *Hepatic Function Panel [facility] Work Phone: Start: 2013 End: 10-25-2013 Lipid panel [AGGREGATE] *Lipid Profile CC PCP [facility] Work Phone: Start: 09-28-2013 End: 09-28-2013 Follow Up Appt 3 months Follow Up Appt 3 months [facility] Work Phone: Start: 09-28-2013 End: 09-28-2013 Pulmonary Fuction Test - complete Pulmonary Fuction Test - complete [facility] Work Phone: Start: 08-05-2013 Pneumococcal Vaccine: 50+ Years (2 of 2 - PCV) Pneumococcal Vaccine: 50+ Years (2 of 2 - PCV) Filtr8 Start: 07-12-2013 End: 07-12-2013 Follow Up Appt 6 months Follow Up Appt 6 months [facility] Work Phone: Start: 07-12-2013 End: 07-12-2013 Follow Up Appt Other Follow Up Appt Other [facility] Work Phone: Start: 07-12-2013 End: 07-12-2013 PFM PFM [facility] Work Phone: Start: 04-24-2013 End: 05-10-2013 *Hepatic Function Panel *Hepatic Function Panel [facility] Work Phone: Start: 04-24-2013 End: 05-10-2013 Lipid panel [AGGREGATE] *Lipid Profile CC PCP [facility] Work Phone: Start: 01-11-2013 End: 01-12-2013 Carotid duplex Carotid duplex [facility] Work Phone: Start: 01-11-2013 End: 01-12-2013 Echocardiography Echocardiogram (complete) [facility] Work Phone: Start: 01-11-2013 End: 01-11-2013 Follow Up Appt 6 months Follow Up Appt 6 months [facility] Work Phone: Start: 01-11-2013 End: 01-11-2013 Follow Up Appt Other Follow Up Appt Other [facility] Work Phone: Start: 01-11-2013 End: 01-11-2013 MMM MMM [facility] Work Phone: Start: 09-21-2012 End: 07-17-2012 *Hepatic Function Panel *Hepatic Function Panel [facility] Work Phone: Start: 09-21-2012 End: 07-17-2012 Lipid panel [AGGREGATE] *Lipid Profile [facility] Work Phone: Start: 07-16-2012 End: 07-16-2012 *Hepatic Function Panel *Hepatic Function Panel [facility] Work Phone: Start: 07-16-2012 End: 07-16-2012 Follow Up Appt 6 months Follow Up Appt 6 months [facility] Work Phone: Start: 07-16-2012 End: 07-16-2012 Lipid panel [AGGREGATE] *Lipid Profile [facility] Work Phone: Start: 07-16-2012 End: 07-16-2012 PFM PFM [facility] Work Phone: Start: 12-16-2011 End: 07-15-2012 *Hepatic Function Panel *Hepatic Function Panel [facility] Work Phone: Start: 12-16-2011 End: 12-16-2011 Follow Up Appt 6 months Follow Up Appt 6 months [facility] Work Phone: Start: 12-16-2011 End: 07-15-2012 Lipid panel [AGGREGATE] *Lipid Profile [facility] Work Phone: Start: 08-14-2011 End: 12-16-2011 *BMP *BMP [facility] Work Phone: Start: 08-14-2011 End: 12-16-2011 *CBC with Differential *CBC with Differential [facility] Work Phone: Start: 08-14-2011 End: 07-15-2012 Coagulation factor induced.INR assay in platelet poor plasma [facility] Work Phone: Start: 08-14-2011 End: 12-16-2011 Electrocardiogram, complete EKG (In office) [facility] Work Phone: Start: 08-14-2011 End: 12-16-2011 Follow Up Appt 3 months Follow Up Appt 3 months [facility] Work Phone: Start: 08-14-2011 End: 08-14-2011 Left Heart Cath Left Heart Cath [facility] Work Phone: Start: 05-29-2011 End: 07-15-2012 Cardiac Rehab Cardiac Rehab [facility] Work Phone: Start: 05-15-2011 End: 06-12-2011 *Hepatic Function Panel *Hepatic Function Panel [facility] Work Phone: Start: 05-15-2011 End: 05-15-2011 Follow Up Appt 3 months Follow Up Appt 3 months [facility] Work Phone: Start: 05-15-2011 End: 06-12-2011 Lipid panel [AGGREGATE] *Lipid Profile [facility] Work Phone: Start: 04-11-2011 End: 04-12-2011 Ct pelvis w/o dye CT Pelvis [facility] Work Phone: Start: 04-04-2011 End: 07-15-2012 *24 hour urine for metanephrines *24 hour urine for metanephrines [facility] Work Phone: Start: 04-03-2011 End: 04-04-2011 Carotid duplex Carotid duplex [facility] Work Phone: Start: 04-03-2011 End: 04-04-2011 Echocardiography Echocardiogram (complete) [facility] Work Phone: Start: 04-03-2011 End: 04-03-2011 Follow Up Appt 6 weeks Follow Up Appt 6 weeks [facility] Work Phone: Start: 04-03-2011 End: 04-04-2011 Follow Up Appt Other Follow Up Appt Other [facility] Work Phone: Start: 04-03-2011 End: 04-04-2011 [facility] Heart [facility] Work Phone: Start: 04-03-2011 End: 04-04-2011 Renal doppler Renal doppler [facility] Work Phone: Start: 2009 Hepatitis B Vaccines (1 of 3 - Risk 3-dose series) Hepatitis B Vaccines (1 of 3 - Risk 3-dose series) [facility] Start: 2009 RSV Immunization for Adults (1 - Risk 60-74 years 1-dose series) RSV Immunization for Adults (1 - Risk 60-74 years 1-dose series) [facility] Start: 10-23-1999 Zoster Vaccines (1 of 2) Zoster Vaccines (1 of 2) [facility] Start: 1968 DTaP/Tdap/Td Vaccines (1 - Tdap) DTaP/Tdap/Td Vaccines (1 - Tdap) [facility] Start: 10-23-1967 Diabetes mellitus screening Diabetes Screening [facility] Start: 1961 Depression Screening Depression Screening [facility] Start: 1949 Screening for malignant neoplasm of colon [facility] End: 04-05-2024 Cardiac catheterization study [facility] Work Phone: Comment on above: Once for 1 Occurrences starting 04/05/19 until 04/05/2024 ECG 12 lead ECG 12 lead CV E CG Routine 04/27/2024 8:34 AM EST [facility] Work Phone: ECG 12 lead - CLINIC PERFORMED ECG 12 lead - CLINIC PERFORMED CV ECG Routine Essential hypertension 03/30/2024 12:42 PM EST [facility] ECG 12 lead - CLINIC PERFORMED ECG 12 lead - CLINIC PERFORMED CV ECG Routine Coronary artery disease involving [place] coronary artery of [place] heart without angina pectoris 05/06/2024 10:14 AM EST [facility] Work Phone: ECG 12 lead - CLINIC PERFORMED ECG 12 lead - CLINIC PERFORMED CV ECG Routine Severe aortic stenosis S/P TAVR (transcatheter aortic valve replacement) 06/03/2024 1:14 PM EDT [facility] Work Phone: Hepatic function panel [facility] Hepatitis A virus Ig M Ab [Presence] in Serum [facility] LEFT AND RIGHT HEART CATH / CORONARY ANGIOGRAPHY LEFT AND RIGHT HEART CATH / CORONARY ANGIOGRAPHY Nonrheumatic aortic valve stenosis [facility] Measurement of respi ratory function [facility] MR Cervical spine [facility] NM Heart Views W str ess and W radionuclide IV [facility] Patient Education [facility] Work Phone: Patient referral [facility] Work Phone: PCR for Hepatitis C [facility] Polysomnography [facility] TRANSCATHETER AORTIC VALVE REPLACEMENT (TAVR) TRANSCATHETER AORTIC VALVE REPLACEMENT (TAVR) Severe aortic stenosis [facility] TRANSCATHETER AORTIC VALVE REPLACEMENT (TAVR) - OR TRANSCATHETER AORTIC VALVE REPLACEMENT (TAVR) - OR Severe aortic stenosis [facility] Walking distance [address] [facility] Immunizations Immunization Date Immunization Notes Care Provider Brittany wilder 08-05-2012 Pneumococcal Vaccine [facility] Work Phone: 08-05-2012 pneumococcal vaccine , unspecified formulation Dr. Beulah Catherine Work Phone: [facility] 01-27-2007 influenza virus vaccine, unspecified formulation Jensen Treadwell MD Work Phone: [facility] Payers Date Payer Category Payer Medicare HMO [employer]ANTAGE [id number] 2023 Self-pay [id number] 2023 Medicare [id number] 2012 Medicare [id number] Medicare [id number] Unknown [id number] 2.16.840.1.167028.3.579.2.46 2 Unknown [id number] 2.16.840.1.270881.3.579.2.46 2 Unknown [id number] 2.16.840.1.398171.3.579.2.46 2 Unknown [id number] 2.16.840.1.012091.3.579.2.46 2 Unknown [id number] 2.16.840.1.532250.3.579.2.46 2 Unknown [id number] 2.16.840.1.572216.3.579.2.46 2 Unknown [id number] 2.16.840.1.531346.3.579.2.46 2 Unknown [id number] 2.16.840.1.938289.3.579.2.46 2 Unknown [id number] 2.16.840.1.691621.3.579.2.46 2 Unknown [id number] 2.16.840.1.698663.3.579.2.46 2 Unknown [id number] 2.16.840.1.383105.3.579.2.46 2 Unknown [id number] 2.16.840.1.007659.3.579.2.46 2 Unknown [id number] 2.16.840.1.650111.3.579.2.46 2 Unknown [id number] 2.16.840.1.323691.3.579.2.46 2 Unknown [id number] 2.16.840.1.897435.3.579.2.46 2 Unknown [id number] 2.16.840.1.843909.3.579.2.46 2 Unknown [id number] 2.16.840.1.826632.3.579.2.46 2 Unknown [id number] 2.16.840.1.664834.3.579.2.46 2 Unknown [id number] 2.16.840.1.115399.3.579.2.46 2 Unknown [id number] 2.16.840.1.698456.3.579.2.46 2 Unknown [id number] 2.16.840.1.387953.3.579.2.46 2 Unknown [id number] 2.16.840.1.884428.3.579.2.46 2 Unknown [id number] 2.16.840.1.112674.3.579.2.46 2 Unknown [id number] 2.16.840.1.597299.3.579.2.46 2 Unknown [id number] 2.16.840.1.710718.3.579.2.46 2 Unknown [id number] 2.16.840.1.689964.3.579.2.46 2 Unknown [id number] 2.16.840.1.081689.3.579.2.46 2 Unknown [id number] 2.16.840.1.324298.3.579.2.46 2 Unknown [id number] 2.16.840.1.448442.3.579.2.46 2 Unknown [id number] 2.16.840.1.961157.3.579.2.46 2 Unknown [id number] 2.16.840.1.220712.3.579.2.46 2 Unknown [id number] 2.16.840.1.755842.3.579.2.46 2 Unknown [id number] 2.16.840.1.671010.3.579.2.46 2 Unknown [id number] 2.16.840.1.612144.3.579.2.46 2 Unknown [id number] 2.16.840.1.021156.3.579.2.46 2 Unknown [id number] 2.16.840.1.899716.3.579.2.46 2 Unknown [id number] 2.16.840.1.600721.3.579.2.46 2 Unknown [id number] 2.16.840.1.408751.3.579.2.46 2 Unknown [id number] 2.16.840.1.682478.3.579.2.46 2 Unknown [id number] 2.16.840.1.507396.3.579.2.46 2 Social History Date Type Detail Facility Start: 02-22-2021 End: 05-02-2023 Tobacco smoking status ORIS Unknown if ever smoked [facility] Start: 08-17-2020 Rare [facility] Start: 08-17-2020 Marijuana;None [facility] Start: 08-17-2020 Non-smoker [facility] Start: 1950 Sex Assigned At Male [facility] Start: 02-16-2013 Spouse/ Signif icant Other [facility] Start: 03-10-2024 End: 06-01-2024 Tobacco smoking status ORIS Ex-smoker [facility] History of tobacco use Current smoker [facility] History of tobacco use Cigarette Smoker [facility] Start: 03-30-2024 End: 06-03-2024 Alcoholic beverage intake Ex-drinker (finding) [facility] Start: 03-10-2024 End: 04-26-2024 History of Social function [facility] Start: 03-10-2024 End: 04-26-2024 Tobacco use panel [facility] Start: 1950 Sex assigned at Not on file S [facility] Start: 2021 End: 06-22-2024 Sex Male (finding) [facility] Start: 04-26-2024 Tobacco use and exposure Smokeless tobacco non-user [facility] Has the electric, [employer], [employer], or water company threatened to shut off services in your home in past 12Mo No [facility] How often to you hav e a drink containing alcohol? Never [facility] How many standard drinks containing alcohol do you have on a typical day? Patient does not drink [facility] (I/We) worried rebekah er (my/our) food would run out before (I/we) got money to buy more. Never true [facility] Medical Equipment Procedure Code Equipment Code Equipment Origin al Text Equipment Identifier Dates Valve Aor Smita 3 Ultra 26mm - [id number] - [id number] Start: 04-26-2024 Device Closure Perclose 6fr - [id number] Start: 04-26-2024 100mm emiliano FDA Start: 05-14-2023 90mm emiliano FDA Start: 05-14-2023 BONE,30CC CRUSH CANC FDA Star t: 05-14-2023 BONE,30CC CRUSH CANC FDA Star t: 05-14-2023 PUTTY,10CC PRIME HD FDA Start : 05-14-2023 set screws FDA Start: 05-14-2023 set screws FDA Start: 05-14-2023 set screws FDA Start: 05-14-2023 set screws FDA Start: 05-14-2023 set screws FDA Start: 05-14-2023 set screws FDA Start: 05-14-2023 [id number] COUGAR LS FDA Start: 05-14-2023 Collagen haemost atic agent, non-antimicrobial ()[id number] FDA Start: 05-14-2023 Ligation clip, metallic ()[id number] FDA Start: 05-14-2023 [id number] cougar LS FDA Start: 05-14-2023 7.0x45 cortical fix FDA Start : 05-14-2023 7.0x45 cortical fix FDA Start : 05-14-2023 7.0x50 cortical fix FDA Start : 05-14-2023 7.0x50 cortical fix FDA Start : 05-14-2023 7.0x50 cortical fix FDA Start : 05-14-2023 7.0x50 cortical fix FDA Start : 05-14-2023 100mm emiliano FDA Start: 05-14-2023 90mm emiliano FDA Start: 05-14-2023 BONE,30CC CRUSH CANC FDA Star t: 05-14-2023 BONE,30CC CRUSH CANC FDA Star t: 05-14-2023 PUTTY,10CC PRIME HD FDA Start : 05-14-2023 set screws FDA Start: 05-14-2023 set screws FDA Start: 05-14-2023 set screws FDA Start: 05-14-2023 set screws FDA Start: 05-14-2023 set screws FDA Start: 05-14-2023 set screws FDA Start: 05-14-2023 [id number] COUGAR LS FDA Start: 05-14-2023 [id number] cougar LS FDA Start: 05-14-2023 7.0x45 cortical fix FDA Start : 05-14-2023 7.0x45 cortical fix FDA Start : 05-14-2023 7.0x50 cortical fix FDA Start : 05-14-2023 7.0x50 cortical fix FDA Start : 05-14-2023 7.0x50 cortical fix FDA Start : 05-14-2023 7.0x50 cortical fix FDA Start : 05-14-2023 100mm emiliano FDA Start: 05-14-2023 90mm emiliano FDA Start: 05-14-2023 BONE,30CC CRUSH CANC FDA Star t: 05-14-2023 BONE,30CC CRUSH CANC FDA Star t: 05-14-2023 PUTTY,10CC PRIME HD FDA Start : 05-14-2023 set screws FDA Start: 05-14-2023 set screws FDA Start: 05-14-2023 set screws FDA Start: 05-14-2023 set screws FDA Start: 05-14-2023 set screws FDA Start: 05-14-2023 set screws FDA Start: 05-14-2023 [id number] COUGAR LS FDA Start: 05-14-2023 [id number] cougar LS FDA Start: 05-14-2023 7.0x45 cortical fix FDA Start : 05-14-2023 7.0x45 cortical fix FDA Start : 05-14-2023 7.0x50 cortical fix FDA Start : 05-14-2023 7.0x50 cortical fix FDA Start : 05-14-2023 7.0x50 cortical fix FDA Start : 05-14-2023 7.0x50 cortical fix FDA Start : 05-14-2023 100mm emiliano FDA Start: 05-14-2023 90mm emiliano FDA Start: 05-14-2023 BONE,30CC CRUSH CANC FDA Star t: 05-14-2023 BONE,30CC CRUSH CANC FDA Star t: 05-14-2023 PUTTY,10CC PRIME HD FDA Start : 05-14-2023 set screws FDA Start: 05-14-2023 set screws FDA Start: 05-14-2023 set screws FDA Start: 05-14-2023 set screws FDA Start: 05-14-2023 set screws FDA Start: 05-14-2023 set screws FDA Start: 05-14-2023 [id number] COUGAR LS FDA Start: 05-14-2023 [id number] cougar LS FDA Start: 05-14-2023 7.0x45 cortical fix FDA Start : 05-14-2023 7.0x45 cortical fix FDA Start : 05-14-2023 7.0x50 cortical fix FDA Start : 05-14-2023 7.0x50 cortical fix FDA Start : 05-14-2023 7.0x50 cortical fix FDA Start : 05-14-2023 7.0x50 cortical fix FDA Start : 05-14-2023 100mm emiliano FDA Start: 05-14-2023 90mm emiliano FDA Start: 05-14-2023 BONE,30CC CRUSH CANC FDA Star t: 05-14-2023 BONE,30CC CRUSH CANC FDA Star t: 05-14-2023 PUTTY,10CC PRIME HD FDA Start : 05-14-2023 set screws FDA Start: 05-14-2023 set screws FDA Start: 05-14-2023 set screws FDA Start: 05-14-2023 set screws FDA Start: 05-14-2023 set screws FDA Start: 05-14-2023 set screws FDA Start: 05-14-2023 [id number] COUGAR LS FDA Start: 05-14-2023 [id number] cougar LS FDA Start: 05-14-2023 7.0x45 cortical fix FDA Start : 05-14-2023 7.0x45 cortical fix FDA Start : 05-14-2023 7.0x50 cortical fix FDA Start : 05-14-2023 7.0x50 cortical fix FDA Start : 05-14-2023 7.0x50 cortical fix FDA Start : 05-14-2023 7.0x50 cortical fix FDA Start : 05-14-2023 100mm emiliano FDA Start: 05-14-2023 90mm emiliano FDA Start: 05-14-2023 BONE,30CC CRUSH CANC FDA Star t: 05-14-2023 BONE,30CC CRUSH CANC FDA Star t: 05-14-2023 PUTTY,10CC PRIME HD FDA Start : 05-14-2023 set screws FDA Start: 05-14-2023 set screws FDA Start: 05-14-2023 set screws FDA Start: 05-14-2023 set screws FDA Start: 05-14-2023 set screws FDA Start: 05-14-2023 set screws FDA Start: 05-14-2023 [id number] COUGAR LS FDA Start: 05-14-2023 [id number] cougar LS FDA Start: 05-14-2023 7.0x45 cortical fix FDA Start : 05-14-2023 7.0x45 cortical fix FDA Start : 05-14-2023 7.0x50 cortical fix FDA Start : 05-14-2023 7.0x50 cortical fix FDA Start : 05-14-2023 7.0x50 cortical fix FDA Start : 05-14-2023 7.0x50 cortical fix FDA Start : 05-14-2023 100mm emiliano FDA Start: 05-14-2023 90mm emiliano FDA Start: 05-14-2023 BONE,30CC CRUSH CANC FDA Star t: 05-14-2023 BONE,30CC CRUSH CANC FDA Star t: 05-14-2023 PUTTY,10CC PRIME HD FDA Start : 05-14-2023 set screws FDA Start: 05-14-2023 set screws FDA Start: 05-14-2023 set screws FDA Start: 05-14-2023 set screws FDA Start: 05-14-2023 set screws FDA Start: 05-14-2023 set screws FDA Start: 05-14-2023 [id number] COUGAR LS FDA Start: 05-14-2023 [id number] cougar LS FDA Start: 05-14-2023 7.0x45 cortical fix FDA Start : 05-14-2023 7.0x45 cortical fix FDA Start : 05-14-2023 7.0x50 cortical fix FDA Start : 05-14-2023 7.0x50 cortical fix FDA Start : 05-14-2023 7.0x50 cortical fix FDA Start : 05-14-2023 7.0x50 cortical fix FDA Start : 05-14-2023 100mm emiliano FDA Start: 05-14-2023 90mm emiliano FDA Start: 05-14-2023 BONE,30CC CRUSH CANC FDA Star t: 05-14-2023 BONE,30CC CRUSH CANC FDA Star t: 05-14-2023 PUTTY,10CC PRIME HD FDA Start : 05-14-2023 set screws FDA Start: 05-14-2023 set screws FDA Start: 05-14-2023 set screws FDA Start: 05-14-2023 set screws FDA Start: 05-14-2023 set screws FDA Start: 05-14-2023 set screws FDA Start: 05-14-2023 [id number] COUGAR LS FDA Start: 05-14-2023 [id number] cougar LS FDA Start: 05-14-2023 7.0x45 cortical fix FDA Start : 05-14-2023 7.0x45 cortical fix FDA Start : 05-14-2023 7.0x50 cortical fix FDA Start : 05-14-2023 7.0x50 cortical fix FDA Start : 05-14-2023 7.0x50 cortical fix FDA Start : 05-14-2023 7.0x50 cortical fix FDA Start : 05-14-2023 Goals Date Patient Goal Desired Activity /State Functional Status Date Assessment Result Facility 05-15-2023 Functional status Up ad nanci;Bedside Commo [facility] Work Phone: Mental Status Date Assessment Result Facility 05-15-2023 Cognitive function Voice/Name [facility] Work Phone: 05-15-2023 Cognitive function Appropriate;Cooperativ e [facility] Work Phone: 10-18-2021 Cognitive function Voice/Name [facility] Work Phone: Clinical Notes 05-05-2023 to 06-03-2024 Assessment & Plan Note - ANGELA Davila CNP - 06/03/2024 1:43 PM EDTAssessment & Plan Note - ANGELA Davila CNP - 06/03/2024 1:43 PM EDT Note Date & Type Note Facility 06-03-2024 Evaluation + Plan note Associ ated Problem(s): S/P TAVR (transcatheter aortic valve replacement) Participating in Cardiac Rehab [facility] 06-03-2024 Miscellaneous Notes Associate d Problem(s): S/P TAVR (transcatheter aortic valve replacement) Participating in Cardiac Rehab Associated Problem(s): Essential hypertension Well controlled. Tolerating current doses of amlodipine, carvedilol Associated Problem(s): Coronary artery disease involving [place] coronary artery of [place] heart without angina pectoris Hx LCx stent in 2011 with stable non-obstructive CAD on most recent cath -no angina -continue isosorbide, carvedilol and high intensity statin -continue DAPT Associated Problem(s): Severe aortic stenosis S/p femoral TAVR with 26 mm Smita S3 on 04/26/24 -stable, NYHA Class II -continue DAPT -one month echo today -lifelong SBE prophylaxis documented in this encounter [facility] 06-03-2024 History of Presen t illness Narrative Images from the original note were not included. [facility] [address] [facility] [address] Dept: [phone] Dept Loc: [phone] Reason for Visit: 1 Month Follow Up (S/p TAVR) Assessment and Plan 1. Severe aortic stenosis Assessment & Plan: S/p femoral TAVR with 26 mm Smita S3 on 04/26/24 -stable, NYHA Class II -continue DAPT -one month echo today -lifelong SBE prophylaxis Orders: - ECG 12 lead - CLINIC PERFORMED - Basic metabolic panel - CBC 2. S/P TAVR (transcatheter aortic valve replacement) Assessment & Plan: Participating in Cardiac Rehab Orders: - ECG 12 lead - CLINIC PERFORMED 3. Coronary artery disease involving [place] coronary artery of [place] heart without angina pectoris Assessment & Plan: Hx LCx stent in 2011 with stable non-obstructive CAD on most recent cath -no angina -continue isosorbide, carvedilol and high intensity statin -continue DAPT 4. Essential hypertension Assessment & Plan: Well controlled. Tolerating current doses of amlodipine, carvedilol Follow up for Dr. Bullock as scheduled. [facility] in one year with echo. Subjective HPI Patrice Vergara is a 73 yo male known to Dr. Bullock with a history of aortic stenosis, HTN, HLD, pulmonary fibrosis, HEATHER on CPAP and CAD with PCI to LCx in 2011. Echo showed preserved EF with mean Ao gradient 34 mmHg, peak velocity 3.9 and SHEKHAR 0.9 cm2. Heart cath showed non-obstructive CAD with plan for medical management. He underwent femoral TAVR on 04/26/24 with a 26 mm Smita S3 valve. He did well post procedure and was discharged home the following day. Post procedure echo showed EF 69% with aortic mean gradient 11 mmHg. He presents today for a one month s/p TAVR follow up accompanied by his daughter. He reports feeling well with no SOB, orthopnea, angina, dizziness or edema. He has started Cardiac Rehab and has resumed normal activities at home. Weight is up 6 lbs in one month. He feels this is due to inactivity. No evidence of volume overload on exam. Has a new diagnosis of RA and is scheduled to see rheumatology. Review of Systems Constitutional: Negative for chills and fever. Respiratory: Negative for cough and shortness of breath. Cardiovascular: Negative for chest pain, palpitations and leg swelling. Gastrointestinal: Negative for abdominal pain, blood in stool and vomiting. Genitourinary: Negative for hematuria. Neurological: Positive for numbness (right leg, chronic, unchanged). Negative for dizziness and syncope. Allergies Allergen Reactions Codeine Shortness of breath Lisinopril Shortness of breath Outpatient Medications Prior to Visit Medication Sig Dispense Refill amLODIPine (Norvasc) 5 MG tablet Take 5 mg by mouth daily. aspirin 81 MG EC tablet Take 81 mg by mouth daily. atorvastatin (Lipitor) 40 MG tablet Take 40 mg by mouth daily. carvedilol (Coreg) 25 MG tablet Take 12.5 mg by mouth 2 times daily (with meals). clopidogrel (Plavix) 75 MG tablet Take 75 mg by mouth daily. gabapentin (Neurontin) 400 MG capsule Take 800 mg by mouth 2 times daily. isosorbide mononitrate ER (Imdur) 30 MG 24 hr tablet Take 30 mg by mouth daily. nitroglycerin (Nitrostat) 0.[address] 0.4 mg under the tongue every 5 minutes as needed for chest pain. omeprazole (PriLOSEC) [address] capsule Take 40 mg by mouth every morning (before breakfast). Spiriva Respimat 2.5 MCG/ACT inhaler Inhale 2 puffs daily. traMADol (Ultram) 50 MG tablet Take 50 mg by mouth every 6 hours as needed. aspirin 325 MG tablet Take 325 mg by mouth daily. (Patient not taking: Reported on 06/03/2024) No facility-administered medications prior to visit. Past Medical History: Diagnosis Date Aortic stenosis COPD (chronic obstructive pulmonary disease) (HCC) Coronary artery disease Diverticulitis Fibromyalgia GERD (gastroesophageal reflux disease) Heart valve disease Hyperlipidemia Hypertension Neuropathy Pulmonary fibrosis (HCC) Renal artery stenosis (HCC) Restless leg syndrome Sleep apnea wears CPAP Social History Tobacco Use Smoking status: Former Types: Cigarettes Smokeless tobacco: Never Substance Use Topics Alcohol use: Not Currently Past Surgical History: Procedure Laterality Date BACK SURGERY 05/2023 CARDIAC CATHETERIZATION N/A 04/08/2024 Performed by Galo Koo MD at [facility] Cardiac Cath/EP Lab CARDIAC CATHETERIZATION N/A 04/08/2024 Performed by Galo Koo MD at [facility] Cardiac Cath/EP Lab CARDIAC CATHETERIZATION N/A 04/26/2024 Performed by Galo Koo MD at [facility] OR CORONARY STENT PLACEMENT 03/2011 ALIA circumflex RENAL ARTERY STENT 03/2011 Dr. Chilel Family History Problem Relation Name Age of Onset Diabetes Mother Hypertension Mother Coronary artery disease Mother Breast cancer Sister Diabetes Sister Diabetes Brother Cardiomyopathy Brother Coronary artery disease Brother Objective Vitals: 06/03/24 1311 06/03/24 1332 BP: (!) 142/72 136/72 BP Location: Left arm Left arm Patient Position: Sitting Sitting BP Cuff Size: Adult Adult Pulse: 54 SpO2: 97% Weight: 177 lb (80.3 kg) Height: 5' 10 (1.778 m) Body mass index is 25.4 kg/m . Physical Exam Constitutional: Appearance: Normal appearance. HENT: Head: Normocephalic. Eyes: General: No scleral icterus. Right eye: No discharge. Left eye: No discharge. Cardiovascular: Rate and Rhythm: Normal rate and regular rhythm. Pulses: Normal pulses. Heart sounds: Normal heart sounds. No murmur heard. Pulmonary: Effort: Pulmonary effort is normal. Breath sounds: Rhonchi (faint scattered) present. Abdominal: General: Abdomen is flat. Palpations: Abdomen is soft. Musculoskeletal: General: Normal range of motion. Cervical back: Normal range of motion. Skin: General: Skin is warm and dry. Capillary Refill: Capillary refill takes less than 2 seconds. Neurological: Mental Status: He is alert and oriented to person, place, and time. Psychiatric: Mood and Affect: Mood normal. Data Reviewed and Summarized Lab Results Component Value Date WBC 15.2 (H) 04/27/2024 HGB 15.5 04/27/2024 HCT 45.6 04/27/2024 MCV 87.7 04/27/2024 PLT 163 04/27/2024 Lab Results Component Value Date GLUCOSE 106 04/27/2024 CALCIUM 9.3 04/27/2024 NA 133 (L) 04/27/2024 K 4.4 04/27/2024 CO2 21 (L) 04/27/2024 CL 105 04/27/2024 BUN 8 (L) 04/27/2024 CREATININE 0.95 04/27/2024 EF BP Date Value Ref Range Status 04/27/2024 69 55 - 100 % Final ANGELA Epps CNP documented in this encounter [facility] 06-03-2024 Evaluation + Plan note Associ ated Problem(s): Essential hypertension Well controlled. Tolerating current doses of amlodipine, carvedilol [facility] 06-03-2024 Evaluation + Plan note Associ ated Problem(s): Coronary artery disease involving [place] coronary artery of [place] heart without angina pectoris Hx LCx stent in 2011 with stable non-obstructive CAD on most recent cath -no angina -continue isosorbide, carvedilol and high intensity statin -continue DAPT [facility] 06-03-2024 Evaluation + Plan note Associ ated Problem(s): Severe aortic stenosis S/p femoral TAVR with 26 mm Smita S3 on 04/26/24 -stable, NYHA Class II -continue DAPT -one month echo today -lifelong SBE prophylaxis [facility] 05-20-2024 Evaluation note Diagnosis Onset Date Resolution Bilateral carotid artery stenosis acute May 20 9:49am History of transcatheter aortic valve replacement (TAVR) acute May 20 9:49am HLD (hyperlipidemia) acute 2024 9:49am Atherosclerotic heart disease of [place] coronary artery without angina pectoris chronic May 20 9:49am Hypertension chronic April 9:49am Pulmonary fibrosis acute June 09, 2024 8:34am Chronic obstructive lung disease chronic June 09, 2024 8:34am Obstructive sleep apnea chronic arch 2024 8:34am Shortness of breath on exertion chronic June 09, 2024 8:34am Smoking greater than 20 pack years chronic June 09, 2024 8:34am Lumbar radiculopathy acute July 29, 2024 10:40am S/P lumbar fusion acute July 10:40am [facility] Work Phone: 1(383) 408-480202-27-2025 Evaluation note* Diagnosis Onset Date Resolution Status Admit Date Bilateral carotid artery stenosis acute May 20 9:49am History of transcatheter aor tic valve replacement (TAVR) acute 2024 9:49am HLD (hyperlipidemia) acute 2024 9:49am Atherosclerotic heart diseas e of [place] coronary artery without angina pectoris chronic May 20, 2024 9:49am Hypertension chronic April 9:49am Pulmonary fibrosis acute June 09, 2024 8:34am Chronic obstructive lung disease chronic June 09, 2024 8:34am Obstructive sleep apnea chronic M arch 2024 8:34am 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, 2024 8:34am Smoking greater than 20 pack years chronic June 09, 2024 8:34am Lumbar radiculopathy acute July 29, 2024 10:40am S/P lumbar fusion acute July 10:40am Bilateral carotid artery stenosis acute September 03, 2024 9:44am History of transcatheter aor tic valve replacement (TAVR) acute September 032024 9:44am HLD (hyperlipidemia) acute September 03, 2024 9:44am Pulmonary fibrosis acute August 222024 9:44am Atherosclerotic heart diseas e of [place] coronary artery without angina pectoris chronic August 9:44am Hypertension chronic September 03, 025 9:44am Pulmonary fibrosis acute August 222024 8:32am Chronic obstructive lung disease chronic September 08, 2024 8:32am Obstructive sleep apnea chronic J 2024 8:32am 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 September 08, 2024 8:32am Smoking greater than 20 pack years chronic September 08, 2024 8:32am [place] [facility] Work Phone: 1(550) 558-502802-13-2025 Evaluation + Plan note* Assessment & Plan Note - ANGELA Davila CNP - 05/06/2024 12:06 PM ESTAssociated Problem(s): S/P TAVR (transcatheter aortic valve replacement) [id number]Ref[facility] Miscellaneous Notes* Assessment & Plan Note - ANGELA Davila CNP - 05/06/2024 12:06 PM ESTAssociated Problem(s): S/P TAVR (transcatheter aortic valve replacement) Referral for cardiac rehab placed * Assessment & Plan Note - ANGELA Davila CNP - 05/06/2024 12:00 PM EST Associated Problem(s): Severe aortic stenosis S/p femoral TAVR with 26 mm Smita S3 on 04/26/24 -stable -continue DAPT -repeat echo in one month -reviewed SBE prophylaxis-he is edentulous -he plans to participate in Cardiac Rehab. * Assessment & Plan Note - ANGELA Davila CNP - 05/06/2024 11:58 AM EST Associated Problem(s): Hyperlipemia Continue atorvastatin * Assessment & Plan Note - ANGELA Davila CNP - 05/06/2024 11:58 AM EST Associated Problem(s): Essential hypertension Well controlled. Continue current doses of amlodipine, carvedilol * Assessment & Plan Note - ANGELA Davila CNP - 05/06/2024 11:57 AM EST Associated Problem(s): Coronary artery disease involving [place] coronary artery of [place] heart without angina pectoris Non-obstructive CAD on most recent cath -no further angina -continue isosorbide, carvedilol and high intensity statin -continue plavix. Would recommend decreasing ASA to 81 mg daily but will defer to primary marine technician. documented in this [facility]02-13-2025 Evaluation + Plan note* Assessment & Plan Note - ANGELA Davila CNP - 05/06/2024 12:00 PM EST Associated Problem(s): Severe aortic stenosis S/p femoral TAVR with 26 mm Smita S3 on 04/26/24 -stable -continue DAPT -repeat echo in one month -reviewed SBE prophylaxis-he is edentulous -he plans to participate in Cardiac Rehab. [id number] Evaluation + Plan note* Assessment & Plan Note - NAGELA Davila CNP - 05/06/2024 11:58 AM ESTAssociated Problem(s): Hyperlipemia Continue atorvastatin [place] [id number] Evaluation + Plan note* Assessment & Plan Note - ANGELA Davila CNP - 05/06/2024 11:58 AM ESTAssociated Problem(s): Essential hypertension Well controlled. Continue current doses of amlodipine, carvedilol [place] [id number] Evaluation + Plan note* Assessment & Plan Note - ANGELA Davila CNP - 05/06/2024 11:57 AM ESTAssociated Problem(s): Coronary artery disease involving [place] coronary artery of [place] heart without angina pectoris Non-obstructive CAD on most recent cath -no further angina -continue isosorbide, carvedilol and high intensity statin -continue plavix. Would recommend decreasing ASA to 81 mg daily but will defer to primary marine technician. [place] [id number] History of Present illness Narrative* ANGELA Davila CNP - 05/06/2024 10:30 AM EST Images from the original note were not included. [facility] - [address] [address] Dept: [phone] Dept Loc: [phone] Reason for Visit: Hospital Follow-up (S/p TAVR follow up) Assessment and Plan 1. Severe aortic stenosis Assessment & Plan: S/p femoral TAVR with 26 mm Smita S3 on 2/3/25 -stable -continue DAPT -repeat echo in one month -reviewed SBE prophylaxis-he is edentulous -he plans to participate in Cardiac Rehab. 2. Coronary artery disease involving [place] coronary artery of [place] heart without angina pectoris Assessment & Plan: Non-obstructive CAD on most recent cath -no further angina -continue isosorbide, carvedilol and high intensity statin -continue plavix. Would recommend decreasing ASA to 81 mg daily but will defer to primary marine technician. Orders: - ECG 12 lead - CLINIC PERFORMED 3. Essential hypertension Assessment & Plan: Well controlled. Continue current doses of amlodipine, carvedilol 4. Mixed hyperlipidemia Assessment & Plan: Continue atorvastatin 5. S/P TAVR (transcatheter aortic valve replacement) Assessment & Plan: Referral for cardiac rehab placed Orders: - External referral to Cardiology Follow up for with Dr. 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 Subjective HPI Patrice Vergara is a 73 yo male known to Dr. Bullock with a history of aortic stenosis, HTN, HLD, pulmonary fibrosis, HEATHER on CPAP and CAD with PCI in 2011. Echo showed preserved EF with mean Ao gradient 34 mmHg, peak velocity 3.9 and SHEKHAR 0.9 cm2. Heart cath showed non-obstructive CAD with plan for medical management. He underwent femoral TAVR on 04/26/24 with a 26 mm Smita S3 valve. He did well post procedure and was discharged home the following day. Post procedure echo showed EF 69% with aortic mean gradient 11 mmHg. He presents today for a one week s/p TAVR follow up accompanied by his daughter. He reports significant improvement in his SOB and activity tolerance. Denies orthopnea, PND, dizziness, edema or bleeding. He had 2 episodes of chest pain one week ago that lasted for several minutes but has had no further complaints of chest pain. Review of Systems Constitutional: Positive for fatigue (improved). Negative for chills and fever. Eyes: Negative for visual disturbance. Respiratory: Positive for shortness of breath (improved). Negative for cough. Cardiovascular: Positive for leg swelling (improved). Negative for chest pain and palpitations. Gastrointestinal: Negative for abdominal pain, blood in stool and vomiting. Genitourinary: Negative for difficulty urinating and hematuria. Neurological: Negative for dizziness and syncope. Allergies Allergen Reactions Codeine Shortness of breath Lisinopril Shortness of breath Outpatient Medications Prior to Visit Medication Sig Dispense Refill amLODIPine (Norvasc) 5 MG tablet Take 5 mg by mouth daily. aspirin 325 MG tablet Take 325 mg by mouth daily. atorvastatin (Lipitor) 40 MG tablet Take 40 mg by mouth daily. carvedilol (Coreg) 25 MG tablet Take 12.5 mg by mouth 2 times daily (with meals). clopidogrel (Plavix) 75 MG tablet Take 75 mg by mouth daily. gabapentin (Neurontin) 400 MG capsule Take 800 mg by mouth 2 times daily. isosorbide mononitrate ER (Imdur) 30 MG 24 hr tablet Take 30 mg by mouth daily. nitroglycerin (Nitrostat) 0.[address] 0.4 mg under the tongue every 5 minutes as needed for chest pain. omeprazole (PriLOSEC) [address] capsule Take 40 mg by mouth every morning (before breakfast). Spiriva Respimat 2.5 MCG/ACT inhaler Inhale 2 puffs daily. traMADol (Ultram) 50 MG tablet Take 50 mg by mouth every 6 hours as needed. No facility-administered medications prior to visit. Past Medical History: Diagnosis Date Aortic stenosis COPD (chronic obstructive pulmonary disease) (HCC) Coronary artery disease Diverticulitis Fibromyalgia GERD (gastroesophageal reflux disease) Heart valve disease Hyperlipidemia Hypertension Neuropathy Pulmonary fibrosis (HCC) Renal artery stenosis (HCC) Restless leg syndrome Sleep apnea wears CPAP Social History Tobacco Use Smoking status: Former Types: Cigarettes Smokeless tobacco: Never Substance Use Topics Alcohol use: Not Currently Past Surgical History: Procedure Laterality Date BACK SURGERY 05/2023 CARDIAC CATHETERIZATION N/A 04/08/2024 Performed by Galo Koo MD at [facility] Cardiac Cath/EP Lab CARDIAC CATHETERIZATION N/A 04/08/2024 Performed by Galo Koo MD at [facility] Cardiac Cath/EP Lab CARDIAC CATHETERIZATION N/A 04/26/2024 Performed by Galo Koo MD at [facility] OR CORONARY STENT PLACEMENT 03/2011 ALIA circumflex RENAL ARTERY STENT 03/2011 Dr. Chilel Family History Problem Relation Name Age of Onset Diabetes Mother Hypertension Mother Coronary artery disease Mother Breast cancer Sister Diabetes Sister Diabetes Brother Cardiomyopathy Brother Coronary artery disease Brother Objective Vitals: 05/06/24 1010 05/06/24 1040 BP: 138/78 BP Location: Left arm Patient Position: Sitting BP Cuff Size: Large adult Pulse: (!) 46 64 SpO2: 96% Weight: 171 lb (77.6 kg) Height: 5' 10 (1.778 m) Body mass index is 24.54 kg/m . Physical Exam Constitutional: Appearance: Normal appearance. HENT: Head: Normocephalic. Eyes: General: No scleral icterus. Right eye: No discharge. Left eye: No discharge. Cardiovascular: Rate and Rhythm: Normal rate and regular rhythm. Pulses: Dorsalis pedis pulses are 1+ on the right side and 1+ on the left side. Posterior tibial pulses are 1+ on the right side and 1+ on the left side. Heart sounds: Normal heart sounds. No murmur heard. Comments: R radial cath site without hematoma, ecchymosis or oozing. R hand with brisk capillary refill R femoral cath site without hematoma, ecchymosis, oozing or bruit Pulmonary: Effort: Pulmonary effort is normal. Breath sounds: Normal breath sounds. Abdominal: General: Abdomen is flat. Palpations: Abdomen is soft. Musculoskeletal: General: Normal range of motion. Cervical back: Normal range of motion. Right lower leg: No edema. Left lower leg: No edema. Skin: General: Skin is warm and dry. Capillary Refill: Capillary refill takes less than 2 seconds. Neurological: Mental Status: He is alert and oriented to person, place, and time. Psychiatric: Mood and Affect: Mood normal. Data Reviewed and Summarized Lab Results Component Value Date WBC 15.2 (H) 04/27/2024 HGB 15.5 04/27/2024 HCT 45.6 04/27/2024 MCV 87.7 04/27/2024 PLT 163 04/27/2024 Lab Results Component Value Date GLUCOSE 106 04/27/2024 CALCIUM 9.3 04/27/2024 NA 133 (L) 04/27/2024 K 4.4 04/27/2024 CO2 21 (L) 04/27/2024 CL 105 04/27/2024 BUN 8 (L) 04/27/2024 CREATININE 0.95 04/27/2024 EF BP Date Value Ref Range Status 04/27/2024 69 55 - 100 % Final Echocardiogram 04/27/24: Left Ventricle: Left ventricle size is normal. Mildly increased wall thickness. Normal left ventricular systolic function. EF by 2D Simpsons Biplane is 69%. Global longitudinal strain is -17.6%. Aortic Valve: Silverman Smita 3 Ultra bioprosthetic aortic valve. AV mean gradient is 11 mmHg. No cusp thickening. No cusp calcification. No regurgitation. No stenosis. Normal prosthetic gradient. Aorta: Normal sized sinuses of Valsalva. Mildly dilated ascending aorta. Ao ascending diameter is 3.8 cm. Pericardium: No pericardial effusion. ANGELA Epps CNP documented in this [facility]02-04-2025 Plan of care note* Care Plan - Erlinda Nice RN - 04/27/2024 12:46 PM EST Problem: Pain - Adult Goal: Verbalizes/displays adequate comfort level or baseline comfort level Outcome: Adequate for Discharge Flowsheets (Taken 04/27/2024 0800) Verbalizes/displays adequate comfort level or baseline comfort level: Encourage patient to monitor pain and request assistance Assess pain using appropriate pain scale Administer analgesics based on type and severity of pain and evaluate response Implement non-pharmacological measures as appropriate and evaluate response Consider cultural and social influences on pain and pain management Notify Licensed Independent Practitioner if interventions unsuccessful or patient reports new pain Problem: Safety - Adult Goal: Free from fall injury Outcome: Adequate for Discharge Flowsheets (Taken 04/27/2024 0800) Free from fall injury: Instruct family/caregiver on patient safety Based on caregiver fall risk screen, instruct family/caregiver to ask for assistance with transferring infant if caregiver noted to have fall risk factors Problem: Discharge Planning Goal: Discharge to home or other facility with appropriate resources Outcome: Adequate for Discharge Problem: Chronic Conditions and Co-morbidities Goal: Patient's chronic conditions and co-morbidity symptoms are monitored and maintained or improved Outcome: Adequate for Discharge [id number] Miscellaneous Notes* Care Plan - Erlinda Nice RN - 04/27/2024 12:46 PM EST Problem: Pain - Adult Goal: Verbalizes/displays adequate comfort level or baseline comfort level Outcome: Adequate for Discharge Flowsheets (Taken 04/27/2024 0800) Verbalizes/displays adequate comfort level or baseline comfort level: Encourage patient to monitor pain and request assistance Assess pain using appropriate pain scale Administer analgesics based on type and severity of pain and evaluate response Implement non-pharmacological measures as appropriate and evaluate response Consider cultural and social influences on pain and pain management Notify Licensed Independent Practitioner if interventions unsuccessful or patient reports new pain Problem: Safety - Adult Goal: Free from fall injury Outcome: Adequate for Discharge Flowsheets (Taken 04/27/2024 0800) Free from fall injury: Instruct family/caregiver on patient safety Based on caregiver fall risk screen, instruct family/caregiver to ask for assistance with transferring if caregiver noted to have fall risk factors Problem: Discharge Planning Goal: Discharge to home or other facility with appropriate resources Outcome: Adequate for Discharge Problem: Chronic Conditions and Co-morbidities Goal: Patient's chronic conditions and co-morbidity symptoms are monitored and maintained or improved Outcome: Adequate for Discharge * Care Plan - Katy Milian RN - 04/26/2024 9:37 AM EST Problem: Pain - Adult Goal: Verbalizes/displays adequate comfort level or baseline comfort level Outcome: Progressing Problem: Safety - Adult Goal: Free from fall injury Outcome: Progressing Problem: Discharge Planning Goal: Discharge to home or other facility with appropriate resources Outcome: Progressing Problem: Chronic Conditions and Co-morbidities Goal: Patient's chronic conditions and co-morbidity symptoms are monitored and maintained or improved Outcome: Progressing documented in this [facility]02-04-2025 Consult note* Juany Ford - 04/27/2024 9:19 AM ESTAssociated Order(s): IP CONSULT TO CARDIAC REHAB Received referral and reviewed chart. Phase II Cardiopulmonary Rehab Referral discussed with Sandra Vergara. Patient prefers cardiopulmonary rehab at [facility]. Given information on program at preferred location. [id number] NoteReceived referral and reviewed chart. Phase II Cardiopulmonary Rehab Referral discussed with Patrice Vergara. Patient prefers cardiopulmonary rehab at [facility]. Given information on program at preferred location. [facility]02-04-2025 Consult note* Juany Ford - 04/27/2024 9:19 AM ESTAssociated Order(s): IP CONSULT TO CARDIAC REHAB Received referral and reviewed chart. Phase II Cardiopulmonary Rehab Referral discussed with Sandra Vergara. Patient prefers cardiopulmonary rehab at [facility]. Given information on program at preferred location. documented in this [facility]02-04-2025 Note Attestation signed by Galo Koo MD at 05/03/2024 3:03 PM I, Dr. Koo, saw and evaluated the patient on 04/27/2024. I personally obtained the noriega and critical portions of the history and physical exam. I reviewed the chart and discussed the patient with the Nurse Practitioner. I agree with the Nurse Practitioner's medical decision making. Hospital Summary: Patient was admitted for elective transcatheter aortic valve replacement. he did well with this procedure. he is now POD1 s/p TF TAVR. he is back to his baseline activity with no symptoms. he will be discharged today on his current medication list. he will follow up in valve clinic in 1-2 weeks. Name: Patrice Vergara Date of : 1950 Date of Admission: 04/26/2024 Date of Discharge: 04/27/2024 Admitting physician: Galo Koo MD Discharge Attending: ANGELA Epps CNP Primary Care Physician: BEULAH CATHERINE Reason for Admission: Severe Symptomatic Aortic Stenosis Consultants: Cardiac Rehab HOSPITAL ADMISSION PROBLEM LIST: Patient Active Problem List Diagnosis Hyperlipemia Sleep apnea Nonrheumatic aortic valve stenosis Diverticulitis Neuropathy Essential hypertension Renal artery stenosis (HCC) GERD (gastroesophageal reflux disease) Fibromyalgia Restless leg syndrome COPD (chronic obstructive pulmonary disease) (HCC) Pulmonary fibrosis (HCC) Severe aortic stenosis Review of Systems Review of Systems Constitutional: Negative for chills and fever. Respiratory: Negative for cough and shortness of breath. Cardiovascular: Negative for chest pain, palpitations and leg swelling. Gastrointestinal: Negative for abdominal pain, blood in stool and vomiting. Genitourinary: Negative for difficulty urinating and hematuria. Neurological: Negative for dizziness and syncope. Psychiatric/Behavioral: Negative for confusion. Physical Exam Physical Exam Constitutional: Appearance: Normal appearance. HENT: Head: Normocephalic. Eyes: General: No scleral icterus. Right eye: No discharge. Left eye: No discharge. Cardiovascular: Rate and Rhythm: Normal rate and regular rhythm. Pulses: Normal pulses. Radial pulses are 2+ on the right side. Dorsalis pedis pulses are 2+ on the right side and 2+ on the left side. Posterior tibial pulses are 2+ on the right side and 2+ on the left side. Heart sounds: Normal heart sounds. No murmur heard. Comments: R radial cath site without hematoma, ecchymosis or oozing. R hand with brisk capillary refill. R femoral cath site without hematoma, ecchymosis, oozing or bruit Pulmonary: Effort: Pulmonary effort is normal. Breath sounds: Rhonchi (scattered) present. Abdominal: General: Abdomen is flat. Palpations: Abdomen is soft. Musculoskeletal: General: Normal range of motion. Cervical back: Normal range of motion. Skin: General: Skin is warm and dry. Capillary Refill: Capillary refill takes less than 2 seconds. Neurological: Mental Status: He is alert and oriented to person, place, and time. Psychiatric: Mood and Affect: Mood normal. Procedures: Transfemoral transcatheter AVR with 26 mm Smita S3 valve under moderate sedation Transthoracic echocardiogram HOSPITAL COURSE : The patient was admitted to the hospital for elective TAVR on 04/26/23 . A 26 Smita S3 valve was implanted. The patient returned to [facility] for recovery. Vital signs and labs were stable. There were no groin complications. The patient was ambulatory the evening of the procedure. Post procedure echocardiogram demonstrated : 04/26/24 Structural Heart Pre Procedure: Severe aortic valve stenosis. AV Peak Velocity (Pre-TAVR) is 4.2 m/s. Aortic Valve: Post-TAVR: Silverman Smita 3 Ultra bioprosthetic aortic valve that is well-seated with a size of mm mm. AV mean gradient is 3 mmHg. No paravalvular regurgitation. AV mean gradient is 3 mmHg. AV area by continuity VTI is 3.5 cm2. Left Ventricle: Left ventricle size is normal. Normal wall thickness. Normal left ventricular systolic function. The EF by visual approximation is 60%. Normal wall motion. Right Ventricle: Right ventricle size is normal. Normal systolic function. Complete echo to follow. Patient education including SBE prophylaxis, activity, access site care, follow up appointments, and medications was provided. The patient verbalized understanding, questions were answered. The patient was discharged home in good condition. Referral to cardiac rehabilitation has been recommended and discussed with the patient prior to discharge. Referral has been made to the [facility] Outpatient Cardiac Rehabilitation Program. Last Labs: Lab Results Component Value Date WBC 15.2 (H) 04/27/2024 HGB 15.5 (more content not included)...[facility] 04-26-2024 NoteStructural Heart Pre Procedure: Severe aortic valve stenosis. AV Peak Velocity (Pre-TAVR) is 4.2 m/s. Aortic Valve: Post-TAVR: Silverman Smita 3 Ultra bioprosthetic aortic valve that is well-seated with a size of mm mm. AV mean gradient is 3 mmHg. No paravalvular regurgitation. AV mean gradient is 3 mmHg. AV area by continuity VTI is 3.5 cm2. Left Ventricle: Left ventricle size is normal. Normal wall thickness. Normal left ventricular systolic function. The EF by visual approximation is 60%. Normal wall motion. Right Ventricle: Right ventricle size is normal. Normal systolic function. Left Ventricle Left ventricle size is normal. Normal wall thickness. Normal left ventricular systolic function. The EF by visual approximation is 60%. Normal wall motion. Diastolic function not assessed. Right Ventricle Right ventricle size is normal. Normal systolic function. Left Atrium Not assessed. Right Atrium Not assessed. IVC/SVC IVC was not assessed. Mitral Valve Valve structure is normal. Mild annular calcification (posterior). Trace regurgitation. No stenosisnoted. Tricuspid Valve Not assessed. Aortic Valve Post-TAVR: Silverman Smita 3 Ultra bioprosthetic aortic valve that is well-seated with a size of mm mm. AV mean gradient is 3 mmHg. No paravalvular regurgitation. AV mean gradient is 3 mmHg. AV area by continuity VTI is 3.5 cm2. Pulmonic Valve The pulmonic valve was not assessed. Ascending Aorta Not assessed. Pericardium No pericardial effusion. Septum Interatrial septum was not assessed. Pulmonary Artery Pulmonary artery was not assessed. Study Details Image quality: technically difficult. Heart rate: 72 bpm. Blood pressure: 175/82 mmHg. The underlying ECG rhythm was sinus rhythm. Echo performed in conjunction with TAVR procedure. Technical qualifiers: Technically difficult study, technically difficult study due to patient's heart rhythm and procedure performed with the patient in a supine position. No contrast was given. Structural Heart Pre Procedure Findings Severe aortic valve stenosis. AV Peak Velocity (Pre-TAVR) is 4.2 m/s.[facility] 04-26-2024 Hospital Discharge instructions* Discharge Instructions* Almaz Heard APRN - GAS PUMP ATTENDANT - 04/26/2024 10:26 AM EST - Please call the Heart Valve Clinic with any questions: [phone] -You will have have the following follow up appointments in the Heart Valve Clinic: one week post procedure, one month post procedure with echocardiogram, one year post procedure with echocardiogram. -Wash groin/wrist incision with soap and water, pat dry. Apply bandage for 5 days. If you have a chest incision, you will receive specific instructions from your surgeon regarding care of the incision. -Check incision every day. If you see any changes in the way it looks, call the Heart Valve Clinic at . Look for any of these problems: redness and warmth that does not go away, yellow or green drainage from the wound, fever and chills, numbness in your legs, pain that is getting worse. -It is normal to have a bruise or soft lump in the groin. This will get smaller and go away with time -Do not drive until after your first Heart Valve Clinic Appointment. -Do not lift, push, or pull anything weighing more than 5 lbs or more for one week if you had the procedure through your groin and 4 weeks if you had the procedure through the chest -We strongly encourage a regular exercise program such as cardiac rehabilitation once you have beencleared to resume normal activity. -Eating well is important for your recovery. Eat nutritious foods every day. Please follow a cardiac, 2 gram sodium diet. Please continue to follow any other dietary recommendations provided by your health care provider prior to your valve surgery. -From now on, tell your doctors and health care providers about your heart valve implantation (prosthetic heart valve ). -If you go to the emergency room or are admitted to the hospital during the first year after your procedure, please call the Heart Valve Clinic at -If you have major dental work or other invasive medical procedures (like surgery) you may need to take antibiotics before the dental work or the procedure. Please discuss with your health care provider. - You will need to take blood thinning medications (antiplatelet) after your valve procedure. Generally, this includes aspirin alone, unless you take blood thinning medications for another indication(warfarin, apixaban, rivaroxaban). If you take blood thinning medications, these are generally sufficient and aspirin will not be required unless otherwise specified. * Discharge Instr - NATHALY* Erlinda Nice RN - 04/27/2024 12:01 PM EST documented in this [facility]02-03-2025 Plan of care note* Care Plan - Katy Milian RN - 04/26/2024 9:37 AM EST Problem: Pain - Adult Goal: Verbalizes/displays adequate comfort level or baseline comfort level Outcome: Progressing Problem: Safety - Adult Goal: Free from fall injury Outcome: Progressing Problem: Discharge Planning Goal: Discharge to home or other facility with appropriate resources Outcome: Progressing Problem: Chronic Conditions and Co-morbidities Goal: Patient's chronic conditions and co-morbidity symptoms are monitored and maintained or improved Outcome: Progressing [id number] NotePatient: Patrice Vergara Procedure Summary Date: 04/26/24 [place] [facility] [place] Room Anesthesia Start: 733 Anesthesia Stop: 835 Procedures: TRANSCATHETER AORTIC VALVE REPLACEMENT, TRANSTHORACIC ECHOCARDIOGRAM TRANSCATHETER AORTIC VALVE REPLACEMENT, TRANSTHORACIC ECHOCARDIOGRAM (Chest) Diagnosis: Severe aortic stenosis Surgeons: Galo Koo MD; Bj Herring MD Responsible Provider: Jorge Luis Onofre DO Anesthesia Type: TIVA ASA Status: 4 Anesthesia Type: TIVA Vitals Value Taken Time BP 150/64 04/26/24 0901 Temp 36.3 ?C (97.3 ?F) 04/26/24 0901 Pulse 58 04/26/24 0915 Resp 18 04/26/24 0915 SpO2 97 % 04/26/24 0915 Vitals shown include unfiled device data. Anesthesia Post Evaluation Patient location during evaluation: PACU Patient participation: complete - patient participated Level of consciousness: awake and alert Pain management: satisfactory to patient Airway patency: patent Dental Injury: no Cardiovascular status: acceptable, blood pressure returned to baseline and hemodynamically stable Respiratory status: acceptable and spontaneous ventilation Hydration status: euvolemic Nausea/Vomiting: controlled There were no known notable events for this encounter. Patient can be discharged once all PACU criteria has been met.[facility]02-03-2025 NotePatient: Patrice Vergara Procedure Summary Date: 04/26/24 [facility] Operating Room Anesthesia Start: 0734 Anesthesia Stop: 0836 Procedures: TRANSCATHETER AORTIC VALVE REPLACEMENT, TRANSTHORACIC ECHOCARDIOGRAM TRANSCATHETER AORTIC VALVE REPLACEMENT, TRANSTHORACIC ECHOCARDIOGRAM (Chest) Diagnosis: Severe aortic stenosis Surgeons: Galo Koo MD; Bj Herring MD Responsible Provider: Jorge Luis Onofre DO Anesthesia Type: TIVA ASA Status: 4 Anesthesia Type: TIVA Vitals Value Taken Time BP 150/64 04/26/24 0901 Temp 36.3 ?C (97.3 ?F) 04/26/24 09 Pulse 58 04/26/2415 Resp 18 04/26/24914 SpO2 97 % 04/26/24914 Vitals shown include unfiled device data. Anesthesia Post Evaluation Patient location during evaluation: PACU Patient participation: complete - patient participated Level of consciousness: awake and alert Pain management: satisfactory to patient Multimodal analgesia pain management approach Airway patency: patent Two or more strategies used to mitigate risk of obstructive sleep apnea Cardiovascular status: acceptable and hemodynamically stable Respiratory status: acceptable Hydration status: acceptable There were no known notable events for this encounter. MIPS #430 PONV Patient did not receive an inhalational anesthetic (XX430) MIPS # 424 Perioperative Temperature Management Anesthesia time was 60 minutes or longer (4255F) Anesthesai administered was General (inhalational or TIVA) or Neuraxial block (X0424) At least one body temperature greater than 95.8F/35.5C achieved within the 30 mins immediately prior to or the 15 minutes immediately following anesthesia end time (G9771) MIPS #477 Multimodal Pain Management Not emergent case Patient was not administered multimodal pain management (G2149) Patient reports no pain in PACU (G2149) MIPS #404 Anesthesiology Smoking Abstinence The patient is not a current smoker (e.g. cigarette, cigar, pipe, e-cigarette/vaping/marijuana) If no stop here (XX404) I completed my handoff to the receiving clinician during which we: 1. Identified the patient 2. Identified the responsible provider 3. Reviewed the pertinent medical history 4. Discussed the surgical course 5. Reviewed intra-op anesthesia management and issues during anesthesia 6. Set expectations for post-procedure period 7. Allowed opportunity for questions and acknowledgement of understanding.[facility] [id number] NoteArterial Line: Date/Time: 04/26/2024 8:09 AM An arterial line was placed Procedure performed using ultrasound guidance - Image permanently retained with wire or catheter in vein.in the Procedural for the following indication(s): continuous blood pressure monitoring and blood sampling needed. A (size) (length) (type) catheter was placed, into the Right radial artery, secured by Tegaderm and tape. Events: patient tolerated procedure well with no complications. Staffing Performed: Other Other staff: Galo Koo, [facility]02-03-2025 NoteH&P reviewed. The patient was examined and there are no changes to the H&P.[facility]01-31-2025 Note Attestation signed by Galo Koo MD at 04/26/2024 3:14 PM I, Dr. Koo, saw and evaluated the patient. I personally obtained the noriega and critical portions of the history and physical exam. I reviewed the chart and discussed the patient with the Nurse Practitioner. I agree with the Nurse Practitioner's medical decision making. I spoke with Patrice Vergara this morning. he tells me that nothing has changed clinically since our last office visit. We will proceed with the planned procedure. Galo Koo MD Cardiology Essential hypertension +1 more Dx Cardiac Valve Problem New Patient Reason for Visit Progress Notes Galo Koo MD (Physician) Cardiology Expand All Collapse All [facility] [place] [address] [facility] [address] Dept: [phone] Dept Visit type: New : 1950 Reason for Visit: Cardiac Valve Problem and New Patient (Heart Valve Clinic) Assessment and Plan 1. Essential hypertension - ECG 12 lead - CLINIC PERFORMED 2. Nonrheumatic aortic valve stenosis - CBC auto differential - Comprehensive metabolic panel - Case Request Time Study Engineer: Left and right heart cath / coronary angiography This is a very pleasant 73 y.o. male with severe and symptomatic aortic stenosis. he is likely in need of aortic valve replacement. Will get a cath to evaluate for concomitant coronary dsiease, Will also get a CTA for anatomic planning. If favorable anatomy for transfemoral TAVR, will likely proceed with TAVR. This decision was made after multidisciplinary discussion, using a shared decision making strategy. CT surgery also saw patient to aide in discussion. It was a pleasure seeing your patient in the office today. Please do not hesitate to call me with any questions. Follow up for Recheck after cath and CTA. Subjective HPI Patrice Vergara is a very pleasant 73 y.o. male who is here for evaluation of his aortic valve disease. his symptoms include progressive dyspnea on exertion and lower extremity edema. . his most recent echo shows likely severe aortic stenosis with mean gradient 34mmHg, peak velocity 3.9m/s, DI 0.27, SHEKHAR 0.9cm2. Review of Systems Constitutional: Negative for activity change, chills, diaphoresis, fatigue and fever. HENT: Negative for nosebleeds and trouble swallowing. Eyes: Negative for discharge and visual disturbance. Respiratory: Positive for shortness of breath (on exertion; worsening in August/ September). Negative for apnea, cough, chest tightness and wheezing. Cardiovascular: Positive for leg swelling (bilateral leg edema). Negative for chest pain and palpitations. Gastrointestinal: Negative for abdominal distention, abdominal pain, blood in stool, diarrhea, nausea and vomiting. Endocrine: Negative for cold intolerance and heat intolerance. Genitourinary: Negative for hematuria. Musculoskeletal: Negative for gait problem and myalgias. Skin: Negative for color change and rash. Neurological: Positive for dizziness. Negative for seizures, syncope, facial asymmetry, speech difficulty, weakness, light-headedness, numbness and headaches. Hematological: Does not bruise/bleed easily. Psychiatric/Behavioral: Negative for dysphoric mood. Allergies Allergies Allergen Reactions Codeine Shortness of breath Lisinopril Shortness of breath Medications Prior to Visit Outpatient Medications Prior to Visit Medication Sig Dispense Refill amLODIPine (Norvasc) 5 MG tablet Take 5 mg by mouth daily. aspirin 325 MG tablet Take 325 mg by mouth daily. atorvastatin (Lipitor) 40 MG tablet Take 40 mg by mouth daily. carvedilol (Coreg) 25 MG tablet Take 12.5 mg by mouth 2 times daily (with meals). clopidogrel (Plavix) 75 MG tablet Take 75 mg by mouth daily. gabapentin (Neurontin) 400 MG capsule Take 800 mg by mouth 2 times daily. isosorbide mononitrate ER (Imdur) 30 MG 24 hr tablet Take 30 mg by mouth daily. nitroglycerin (Nitrostat) 0.[address] 0.4 mg under the tongue every 5 minutes as needed for chest pain. omeprazole (PriLOSEC) [address] capsule Take 40 mg by mouth every morning (before breakfast). Spiriva Respimat 2.5 MCG/ACT inhaler Inhale 2 puffs daily. traMADol (Ultram) 50 MG tablet Take 50 mg by mouth every 6 hours as needed. No facility-administered medications prior to visit. Medical History Past Medical History: Diagnosis Date Aortic stenosis COPD (chronic obstructive pulmonary disease) (HCC) Coronary artery disease Diverticulitis Fibromyalgia GERD (gastroesophageal reflux disease) Heart valve disease Hyperlipidemia Hypertension Neuropathy Pulmonary fibrosis (HCC) Renal artery stenosis (HCC) Restless leg syndrome Sleep apnea wears CPAP Social History Tobacco Use Smoking status: (more content not included)...[facility] [id number] Note Attestation signed by Galo Koo MD at 04/26/2024 3:14 PM I, Dr. Koo, saw and evaluated the patient. I personally obtained the noriega and critical portions of the history and physical exam. I reviewed the chart and discussed the patient with the Nurse Practitioner. I agree with the Nurse Practitioner's medical decision making. I spoke with Patrice Vergara this morning. he tells me that nothing has changed clinically since our last office visit. We will proceed with the planned procedure. Galo Koo MD Cardiology Essential hypertension +1 more Dx Cardiac Valve Problem New Patient Reason for Visit Progress Notes Galo Koo MD (Physician) Cardiology Expand All Collapse All [facility] [place] [address] [facility] [address] Dept: [phone] Dept Visit type: New : 1950 Reason for Visit: Cardiac Valve Problem and New Patient (Heart Valve Clinic) Assessment and Plan 1. Essential hypertension - ECG 12 lead - CLINIC PERFORMED 2. Nonrheumatic aortic valve stenosis - CBC auto differential - Comprehensive metabolic panel - Case Request Time Study Engineer: Left and right heart cath / coronary angiography This is a very pleasant 73 y.o. male with severe and symptomatic aortic stenosis. he is likely in need of aortic valve replacement. Will get a cath to evaluate for concomitant coronary dsiease, Will also get a CTA for anatomic planning. If favorable anatomy for transfemoral TAVR, will likely proceed with TAVR. This decision was made after multidisciplinary discussion, using a shared decision making strategy. CT surgery also saw patient to aide in discussion. It was a pleasure seeing your patient in the office today. Please do not hesitate to call me with any questions. Follow up for Recheck after cath and CTA. Subjective HPI Patrice Vergara is a very pleasant 73 y.o. male who is here for evaluation of his aortic valve disease. his symptoms include progressive dyspnea on exertion and lower extremity edema. . his most recent echo shows likely severe aortic stenosis with mean gradient 34mmHg, peak velocity 3.9m/s, DI 0.27, SHEKHAR 0.9cm2. Review of Systems Constitutional: Negative for activity change, chills, diaphoresis, fatigue and fever. HENT: Negative for nosebleeds and trouble swallowing. Eyes: Negative for discharge and visual disturbance. Respiratory: Positive for shortness of breath (on exertion; worsening in August/ September). Negative for apnea, cough, chest tightness and wheezing. Cardiovascular: Positive for leg swelling (bilateral leg edema). Negative for chest pain and palpitations. Gastrointestinal: Negative for abdominal distention, abdominal pain, blood in stool, diarrhea, nausea and vomiting. Endocrine: Negative for cold intolerance and heat intolerance. Genitourinary: Negative for hematuria. Musculoskeletal: Negative for gait problem and myalgias. Skin: Negative for color change and rash. Neurological: Positive for dizziness. Negative for seizures, syncope, facial asymmetry, speech difficulty, weakness, light-headedness, numbness and headaches. Hematological: Does not bruise/bleed easily. Psychiatric/Behavioral: Negative for dysphoric mood. Allergies Allergies Allergen Reactions Codeine Shortness of breath Lisinopril Shortness of breath Medications Prior to Visit Outpatient Medications Prior to Visit Medication Sig Dispense Refill amLODIPine (Norvasc) 5 MG tablet Take 5 mg by mouth daily. aspirin 325 MG tablet Take 325 mg by mouth daily. atorvastatin (Lipitor) 40 MG tablet Take 40 mg by mouth daily. carvedilol (Coreg) 25 MG tablet Take 12.5 mg by mouth 2 times daily (with meals). clopidogrel (Plavix) 75 MG tablet Take 75 mg by mouth daily. gabapentin (Neurontin) 400 MG capsule Take 800 mg by mouth 2 times daily. isosorbide mononitrate ER (Imdur) 30 MG 24 hr tablet Take 30 mg by mouth daily. nitroglycerin (Nitrostat) 0.[address] 0.4 mg under the tongue every 5 minutes as needed for chest pain. omeprazole (PriLOSEC) [address] capsule Take 40 mg by mouth every morning (before breakfast). Spiriva Respimat 2.5 MCG/ACT inhaler Inhale 2 puffs daily. traMADol (Ultram) 50 MG tablet Take 50 mg by mouth every 6 hours as needed. No facility-administered medications prior to visit. Medical History Past Medical History: Diagnosis Date Aortic stenosis COPD (chronic obstructive pulmonary disease) (HCC) Coronary artery disease Diverticulitis Fibromyalgia GERD (gastroesophageal reflux disease) Heart valve disease Hyperlipidemia Hypertension Neuropathy Pulmonary fibrosis (HCC) Renal artery stenosis (HCC) Restless leg syndrome Sleep apnea wears CPAP Social History Tobacco Use Smoking status: (more content not included)...[facility] [id number] NotePatient: Patrice Vergara Procedure Information Date/Time: 04/26/24 7898 Procedures: TRANSCATHETER AORTIC VALVE REPLACEMENT, TRANSTHORACIC ECHOCARDIOGRAM TRANSCATHETER AORTIC VALVE REPLACEMENT, TRANSTHORACIC ECHOCARDIOGRAM (Chest) Location: [facility] Operating Room Surgeons: Galo Koo MD; Bj Herring MD Relevant Problems Cardio (+) Essential hypertension (+) Hyperlipemia (+) Nonrheumatic aortic valve stenosis (+) Renal artery stenosis (HCC) (+) Severe aortic stenosis GI (+) GERD (gastroesophageal reflux disease) Neuro/Psych (+) Restless leg syndrome Pulmonary (+) COPD (chronic obstructive pulmonary disease) (HCC) Cardiovascular (+) Renal artery stenosis (HCC) Past Medical History: Past Medical History: No date: Aortic stenosis No date: COPD (chronic obstructive pulmonary disease) (HCC) No date: Coronary artery disease No date: Diverticulitis No date: Fibromyalgia No date: GERD (gastroesophageal reflux disease) No date: Heart valve disease No date: Hyperlipidemia No date: Hypertension No date: Neuropathy No date: Pulmonary fibrosis (HCC) No date: Renal artery stenosis (HCC) No date: Restless leg syndrome No date: Sleep apnea Comment: wears CPAP Past Surgical History: Past Surgical History: 05/2023: BACK SURGERY 04/08/2024: CARDIAC CATHETERIZATION; N/A Comment: Performed by Galo Koo MD at [facility] Cardiac Cath/EP Lab 04/08/2024: CARDIAC CATHETERIZATION; N/A Comment: Performed by Galo Koo MD at [facility] Cardiac Cath/EP Lab 03/2011: CORONARY STENT PLACEMENT Comment: ALIA circumflex 03/2011: RENAL ARTERY STENT Comment: Dr. Chilel Social History: TOBACCO: reports that he has quit smoking. His smoking use included cigarettes. He does not have any smokeless tobacco history on file. ETOH: reports that he does not currently use alcohol. Social History Substance and Sexual Activity Drug Use Not Currently Family History: Family History Problem Relation Name Age of Onset Diabetes Mother Hypertension Mother Coronary artery disease Mother Breast cancer Sister Diabetes Sister Diabetes Brother Cardiomyopathy Brother Coronary artery disease Brother Screening: unknown Clinical information reviewed: Physical Exam Airway Mallampati: II TM distance: >3 FB Mouth Open: normalendotracheal tube not in place Cardiovascular Dental (+) Upper Dentures, Lower Dentures Pulmonary Abdominal Cath Findings: Coronary Anatomy: Left main with minimal CAD LAD with with 50% mid LAD lesion, IFR was negative, suggesting this lesion is unlikely to benefit from revascularization. Circumflex with minimal CAD RCA with minimal CAD Anesthesia Plan patient is NPO appropriate Any family history or previous problems with anesthesia no ASA 4 TIVA Any family history or previous problems with anesthesia no The patient is not a current smoker. Anesthetic plan and risks discussed with patient. Use of blood products discussed with who consented to blood products. ERAS Type 04/23/24 Chart reviewed. DOS orders for anesthesia placed according to ERAS protocol. Tavr, no eras Tavr checklist complete Stress / echo under media Maria D Everett, PROVIDER SCRIBE - GAS PUMP ATTENDANT HEATHER Screening Labs: Lab Results Component Value Date WBC 8.3 04/20/2024 HGB 14.0 04/20/2024 HCT 43.0 04/20/2024 MCV 89.6 04/20/2024 PLT 183 04/20/2024 Lab Results Component Value Date NA 135 (L) 04/20/2024 K 4.8 04/20/2024 CL 102 04/20/2024 CO2 27 04/20/2024 BUN 8 (L) 04/20/2024 CREATININE 0.98 04/20/2024 GLUCOSE 89 04/20/2024 CALCIUM 9.3 04/20/2024 PROT 7.2 04/20/2024 ALKPHOS 83 04/20/2024 AST 24 04/20/2024 ALT 10 04/20/2024 EGFR 80.9 04/20/2024 No echocardiogram results found for the past 14 days 03/30/24 ECG 12-LEAD 04/10/2024 10:46 PM (Final) Narrative Sinus Bradycardia WITHIN NORMAL LIMITS Signed by: Galo Koo on 04/10/2024 10:46 PM Equipment Requests: Additional Equipment Requests Vascular Equipment: arterial line kit, single transducer and 2nd datapine System [id number] NotePre TAVR phone call placed. Reviewed, procedure, instructions and meds. Pt verbalizes understanding. Pt knows to call [phone] with any concerns. Amalia Banuelos PROVIDER SCRIBE notified for prep for proc orders. Diagnosis: Aortic stenosis Procedure being done: TAVR Date/time of procedure: 04/26/24 7:30 am Surgeon: Dr. Koo 2nd surgeon: Dr. Herring Admission type: To be admitted Anesthesia: MAC Completed: MAC Date completed: 04/20/24 Additional orders Stat T&S AM of [facility]01-28-2025 Note* Addendum Note - Erin Nicholas - 04/20/2024 10:50 AM ESTAddended by: ERIN NICHOLAS on: 04/20/2024 10:50 AM Modules accepted: Orders [id number] Miscellaneous Notes* Addendum Note - Erin Nicholas - 04/20/2024 10:50 AM ESTAddended by: ERIN NICHOLAS on: 04/20/2024 10:50 AM Modules accepted: Orders * Telephone Encounter - Kristina Bryan - 04/12/2024 8:24 AM EST Name of Caller: Rodriguez Contact Reason for Appointment: following up on procedure date Office Name: [facility] * Telephone Encounter - ANGELA Davila CNP - 04/08/2024 10:22 AM EST Patient s/p heart cath today. Has a LAD lesion that was IFR negative. Plan for CTA and TAVR. Ordersplaced. * Telephone Encounter - Guillermina Owens RN - 04/05/2024 8:37 AM EST Amalia Heard APRN notified for prep for proc orders. Procedure being done: L/RHC Date/time of procedure: 04/08/24 9 am Procedure physician: Dr. Koo PRE-PROCEDURE CHECKLIST Completed: CMP, CBC, EKG, and H&P Date completed: H&P: 03/30/24 BMP: 03/31/24 (media section) CBC: 03/31/24 (media section) EK03/30/24 PT INR (if indicated): N/A Urine HCG (if indicated): N/A Last ICD/pacer check (if indicated): N/A ORDERS DAY OF PROCEDURE [x] N/A [] Urine HCG [] POC Glucose [] POC INR [] EKG on arrival [] BMP [] CBC * Telephone Encounter - Елеан Montemayor - 04/02/2024 5:16 PM EST Approved [id number] 04/02-06/30/2024 PB calendar updated and requested on Snapboard. * Telephone Encounter - Елена Montemayor - 04/02/2024 9:14 AM EST Evi PFT and US scanned under Media * Telephone Encounter - Елена Montemayor - 04/01/2024 3:14 PM EST I called Evi and requested PFT and carotid US. Evi labs scanned under Media * Telephone Encounter - Guillermina Owens RN - 03/31/2024 9:18 AM EST You are scheduled for L/RHC with Dr. Koo on 04/08/24 at 9 am Report to [facility], 1st Floor [facility] by 7:30 am You can park in the [address] Deck or use [employer] parking (for a nominal fee of $6-7) and enter the hospital using the [address] entrance across from the parking deck You will need a designated class a regional drivers for the day of your procedure to take you home Nothing to eat or drink after midnight Please take your am medications with sips of water prior to leaving for the hospital. Please take your Aspirin and Plavix as usual before leaving for the hospital. Hold vitamins/supplements Get blood work done by 2 days prior at [facility]. Patient given lab orders to complete Please call the office at [phone] if you have any questions. Patient also had recent PFT and carotid US completed at [facility]. Jack Montemayor to obtain results * Telephone Encounter - Елена Montemayor - 03/30/2024 2:20 PM EST Dx: I35.0 Procedure: R/LHC Date/Time: 04/08/24 at 9:00a Surgeon: HOLLI Location: [facility] Admission: OP Anesthesia: n/a On PB calendar and printed card to start auth documented in this [facility]01-28-2025 NoteTAVR procedure, instructions reviewed with pt and , daughter. Patient scheduled for TAVR on 04/26/24 at 7:30 am Will report to [facility] Day [facility] by 5:30 am Can park in the [facility] Parking Deck or use [employer] parking at the [facility] entrance Plan on overnight stay in the hospital Will not be able to drive for 1 week after procedure Will receive moderate sedation through the IV, will be relaxed but awake during the procedure Nothing to eat or drink after midnight Instructed to take morning medications including ASA as prescribed with small sip of water EXCEPT to HOLD vitamins/supplements morning of surgery Will call with any questions/concerns Pre-op testing done 04/20/24 Patient/family verbalized understanding.[facility]01-20-2025 Note Name of Caller: Rodriguez Contact Reason for Appointment: following up on procedure date Office Name: [facility]01-20-2025 Telephone encounter Note* Telephone Encounter - Kristina Bryan - 04/12/2024 8:24 AM EST Name of Caller: Rodriguez Contact Reason for Appointment: following up on procedure date Office Name: [facility] [id number] Miscellaneous Notes* Telephone Encounter - Kristina Bryan - 04/12/2024 8:24 AM EST Name of Caller: Rodriguez Contact Reason for Appointment: following up on procedure date Office Name: [facility] * Telephone Encounter - ANGELA Davila CNP - 04/08/2024 10:22 AM EST Patient s/p heart cath today. Has a LAD lesion that was IFR negative. Plan for CTA and TAVR. Ordersplaced. * Telephone Encounter - Guillermina Owens RN - 04/05/2024 8:37 AM EST Amalia Heard APRN notified for prep for proc orders. Procedure being done: L/RHC Date/time of procedure: 04/08/24 9 am Procedure physician: Dr. Koo PRE-PROCEDURE CHECKLIST Completed: CMP, CBC, EKG, and H&P Date completed: H&P: 03/30/24 BMP: 03/31/24 (media section) CBC: 03/31/24 (media section) EK03/30/24 PT INR (if indicated): N/A Urine HCG (if indicated): N/A Last ICD/pacer check (if indicated): N/A ORDERS DAY OF PROCEDURE [x] N/A [] Urine HCG [] POC Glucose [] POC INR [] EKG on arrival [] BMP [] CBC * Telephone Encounter - Елена Montemayor - 04/02/2024 5:16 PM EST Approved [id number] 04/02-06/30/2024 PB calendar updated and requested on [employer]. * Telephone Encounter - Елена Montemayor - 04/02/2024 9:14 AM EST Evi PFT and US scanned under Media * Telephone Encounter - Елена Montemayor - 04/01/2024 3:14 PM EST I called [facility] and requested PFT and carotid US. [facility] labs scanned under Media * Telephone Encounter - Guillermina Owens RN - 03/31/2024 9:18 AM EST You are scheduled for L/RHC with Dr. Koo on 04/08/24 at 9 am Report [address] by 7:30 am You can park in the [address] Deck or use [employer] parking (for a nominal fee of $6-7) and enter the hospital using the [address] across from the parking deck You will need a designated class a regional drivers for the day of your procedure to take you home Nothing to eat or drink after midnight Please take your am medications with sips of water prior to leaving for the hospital. Please take your Aspirin and Plavix as usual before leaving for the hospital. Hold vitamins/supplements Get blood work done by 2 days prior at [facility]. Patient given lab orders to complete Please call the office at [phone] if you have any questions. Patient also had recent PFT and carotid US completed at [facility]. Jack Montemayor to obtain results * Telephone Encounter - Елена Montemayor - 03/30/2024 2:20 PM EST Dx: I35.0 Procedure: R/LHC Date/Time: 04/08/24 at 9:00a Surgeon: PB Location: [facility] Admission: OP Anesthesia: n/a On PB calendar and printed card to start auth documented in this [facility]01-16-2025 Hospital Discharge instructions* Discharge Instructions* Patricia Raymundo RN - 04/08/2024 11:06 AM EST Call your doctor with any medication questions or if you notice any side effects from your medications. If you are unable to fill your medications, please call your Bean Dumper immediately. The office number is located with your follow-up appointment information. Call your doctor if any redness or drainage from the wound site. DO NOT stop taking your medication unless instructed to do so by your doctor. Read the drug information material that were given to you and take medications as instructed by your doctor. New drugs may have been added to your medications, that will strengthen your heart and prevent re-stenosis of the coronary arteries. Drink 6 glasses of water (8 ounces each) over the next 24 hours. Water helps clear the dye from your body. No alcoholic beverages for 24 hours. It may interfere with healing. No exercise or sex for 5 days. Call 911 for chest pain, arm pain, nausea, neck pain, dizziness or unusual sweating AND your pain has not relieved with 2 doses of Nitroglycerin. Call your doctor if a lump at the puncture site enlarges or is larger than marble size. Call your doctor for numbness, tingling, or swelling of the fingers, hand or wrist. Call your doctor for increased area or bruising with discoloration extending into the arm. If bleeding occurs, hold pressure with your thumb against the puncture site and your finger againstthe back of the wrist for 10 minutes, if BLEEDING continues CALL 911. OK to shower. No tub baths, swimming pools or hot tub soaking for three days. Wash site daily with soap and water, dry gently. The healing wound should remain soft and dry. Keepsite clean and dry, no soaking of wrist for three days (no cleaning or dish washing). Remove band aid the day after procedure and leave open to air. No bending of affected wrist for 24 hours. DO NOT lift more than three pounds for 3-5 days. [address] driving for 24 hours. PLEASE CALL YOUR HEART DOCTOR IF YOU CANNOT GET YOUR MEDICATIONS. THE NUMBER IS LISTED WITH YOUR FOLLOW-UP APPOINTMENT. Procedure Sedation Instructions If you have received sedation: you must have someone drive you home You should not drive a car, operate machinery, drink alcohol or perform any activity that requires alertness for the rest of the day. The effects of the sedative should be gone by tomorrow. documented in this [facility]01-16-2025 Telephone encounter Note* Telephone Encounter - ANGELA Davila CNP - 04/08/2024 10:22 AM EST Patient s/p heart cath today. Has a LAD lesion that was IFR negative. Plan for CTA and TAVR. Ordersplaced. [facility] [id number] NoteH&P reviewed. The patient was examined and there are no changes to the H&P.[facility]01-14-2025 Note Attestation signed by Galo Koo MD at 04/10/2024 10:37 PM I, Dr. Koo, saw and evaluated the patient. I personally obtained the noriega and critical portions of the history and physical exam. I reviewed the chart and discussed the patient with the Nurse Practitioner. I agree with the Nurse Practitioner's medical decision making. I spoke with Patrice Vergara this morning. he tells me that nothing has changed clinically since our last office visit. We will proceed with the planned procedure. [facility] [place] [address] [facility] [address] Dept: [phone] Dept Visit type: New : 1950 Reason for Visit: Cardiac Valve Problem and New Patient (Heart Valve Clinic) Assessment and Plan 1. Essential hypertension - ECG 12 lead - CLINIC PERFORMED 2. Nonrheumatic aortic valve stenosis - CBC auto differential - Comprehensive metabolic panel - Case Request Time Study Engineer: Left and right heart cath / coronary angiography This is a very pleasant 73 y.o. male with severe and symptomatic aortic stenosis. he is likely in need of aortic valve replacement. Will get a cath to evaluate for concomitant coronary dsiease, Will also get a CTA for anatomic planning. If favorable anatomy for transfemoral TAVR, will likely proceed with TAVR. This decision was made after multidisciplinary discussion, using a shared decision making strategy. CT surgery also saw patient to aide in discussion. It was a pleasure seeing your patient in the office today. Please do not hesitate to call me with any questions. Follow up for Recheck after cath and CTA. Subjective HPI Patrice Vergara is a very pleasant 73 y.o. male who is here for evaluation of his aortic valve disease. his symptoms include progressive dyspnea on exertion and lower extremity edema. . his most recent echo shows likely severe aortic stenosis with mean gradient 34mmHg, peak velocity 3.9m/s, DI 0.27, SHEKHAR 0.9cm2. Review of Systems Constitutional: Negative for activity change, chills, diaphoresis, fatigue and fever. HENT: Negative for nosebleeds and trouble swallowing. Eyes: Negative for discharge and visual disturbance. Respiratory: Positive for shortness of breath (on exertion; worsening in Irsa/ September). Negative for apnea, cough, chest tightness and wheezing. Cardiovascular: Positive for leg swelling (bilateral leg edema). Negative for chest pain and palpitations. Gastrointestinal: Negative for abdominal distention, abdominal pain, blood in stool, diarrhea, nausea and vomiting. Endocrine: Negative for cold intolerance and heat intolerance. Genitourinary: Negative for hematuria. Musculoskeletal: Negative for gait problem and myalgias. Skin: Negative for color change and rash. Neurological: Positive for dizziness. Negative for seizures, syncope, facial asymmetry, speech difficulty, weakness, light-headedness, numbness and headaches. Hematological: Does not bruise/bleed easily. Psychiatric/Behavioral: Negative for dysphoric mood. Allergies Allergies Allergen Reactions Codeine Shortness of breath Lisinopril Shortness of breath Medications Prior to Visit Outpatient Medications Prior to Visit Medication Sig Dispense Refill amLODIPine (Norvasc) 5 MG tablet Take 5 mg by mouth daily. aspirin 325 MG tablet Take 325 mg by mouth daily. atorvastatin (Lipitor) 40 MG tablet Take 40 mg by mouth daily. carvedilol (Coreg) 25 MG tablet Take 12.5 mg by mouth 2 times daily (with meals). clopidogrel (Plavix) 75 MG tablet Take 75 mg by mouth daily. gabapentin (Neurontin) 400 MG capsule Take 800 mg by mouth 2 times daily. isosorbide mononitrate ER (Imdur) 30 MG 24 hr tablet Take 30 mg by mouth daily. nitroglycerin (Nitrostat) 0.[address] 0.4 mg under the tongue every 5 minutes as needed for chest pain. omeprazole (PriLOSEC) [address] capsule Take 40 mg by mouth every morning (before breakfast). Spiriva Respimat 2.5 MCG/ACT inhaler Inhale 2 puffs daily. traMADol (Ultram) 50 MG tablet Take 50 mg by mouth every 6 hours as needed. No facility-administered medications prior to visit. Medical History Past Medical History: Diagnosis Date Aortic stenosis COPD (chronic obstructive pulmonary disease) (HCC) Coronary artery disease Diverticulitis Fibromyalgia GERD (gastroesophageal reflux disease) Heart valve disease Hyperlipidemia Hypertension Neuropathy Pulmonary fibrosis (HCC) Renal artery stenosis (HCC) Restless leg syndrome Sleep apnea wears CPAP Social History Tobacco Use Smoking status: Former Types: Cigarettes Smokeless tobacco: Not on file Substance Use Topics Alcohol use: Not Currently Surgical History Past Surgical History: Procedure Laterality Date BACK SURGERY 05/2023 CORONAR (more content not included)...[facility]ly [facility] [id number] Note Attestation signed by Galo Koo MD at 04/10/2024 10:37 PM I, Dr. Koo, saw and evaluated the patient. I personally obtained the noriega and critical portions of the history and physical exam. I reviewed the chart and discussed the patient with the Nurse Practitioner. I agree with the Nurse Practitioner's medical decision making. I spoke with Patrice Vergara this morning. he tells me that nothing has changed clinically since our last office visit. We will proceed with the planned procedure. [facility] [place] [address] [facility] [address] Dept: [phone] Dept Visit type: New : 1950 Reason for Visit: Cardiac Valve Problem and New Patient (Heart Valve Clinic) Assessment and Plan 1. Essential hypertension - ECG 12 lead - CLINIC PERFORMED 2. Nonrheumatic aortic valve stenosis - CBC auto differential - Comprehensive metabolic panel - Case Request Time Study Engineer: Left and right heart cath / coronary angiography This is a very pleasant 73 y.o. male with severe and symptomatic aortic stenosis. he is likely in need of aortic valve replacement. Will get a cath to evaluate for concomitant coronary dsiease, Will also get a CTA for anatomic planning. If favorable anatomy for transfemoral TAVR, will likely proceed with TAVR. This decision was made after multidisciplinary discussion, using a shared decision making strategy. CT surgery also saw patient to aide in discussion. It was a pleasure seeing your patient in the office today. Please do not hesitate to call me with any questions. Follow up for Recheck after cath and CTA. Subjective HPI Patrice Vergara is a very pleasant 73 y.o. male who is here for evaluation of his aortic valve disease. his symptoms include progressive dyspnea on exertion and lower extremity edema. . his most recent echo shows likely severe aortic stenosis with mean gradient 34mmHg, peak velocity 3.9m/s, DI 0.27, SHEKHAR 0.9cm2. Review of Systems Constitutional: Negative for activity change, chills, diaphoresis, fatigue and fever. HENT: Negative for nosebleeds and trouble swallowing. Eyes: Negative for discharge and visual disturbance. Respiratory: Positive for shortness of breath (on exertion; worsening in August/ September). Negative for apnea, cough, chest tightness and wheezing. Cardiovascular: Positive for leg swelling (bilateral leg edema). Negative for chest pain and palpitations. Gastrointestinal: Negative for abdominal distention, abdominal pain, blood in stool, diarrhea, nausea and vomiting. Endocrine: Negative for cold intolerance and heat intolerance. Genitourinary: Negative for hematuria. Musculoskeletal: Negative for gait problem and myalgias. Skin: Negative for color change and rash. Neurological: Positive for dizziness. Negative for seizures, syncope, facial asymmetry, speech difficulty, weakness, light-headedness, numbness and headaches. Hematological: Does not bruise/bleed easily. Psychiatric/Behavioral: Negative for dysphoric mood. Allergies Allergies Allergen Reactions Codeine Shortness of breath Lisinopril Shortness of breath Medications Prior to Visit Outpatient Medications Prior to Visit Medication Sig Dispense Refill amLODIPine (Norvasc) 5 MG tablet Take 5 mg by mouth daily. aspirin 325 MG tablet Take 325 mg by mouth daily. atorvastatin (Lipitor) 40 MG tablet Take 40 mg by mouth daily. carvedilol (Coreg) 25 MG tablet Take 12.5 mg by mouth 2 times daily (with meals). clopidogrel (Plavix) 75 MG tablet Take 75 mg by mouth daily. gabapentin (Neurontin) 400 MG capsule Take 800 mg by mouth 2 times daily. isosorbide mononitrate ER (Imdur) 30 MG 24 hr tablet Take 30 mg by mouth daily. nitroglycerin (Nitrostat) 0.[address] 0.4 mg under the tongue every 5 minutes as needed for chest pain. omeprazole (PriLOSEC) [address] capsule Take 40 mg by mouth every morning (before breakfast). Spiriva Respimat 2.5 MCG/ACT inhaler Inhale 2 puffs daily. traMADol (Ultram) 50 MG tablet Take 50 mg by mouth every 6 hours as needed. No facility-administered medications prior to visit. Medical History Past Medical History: Diagnosis Date Aortic stenosis COPD (chronic obstructive pulmonary disease) (HCC) Coronary artery disease Diverticulitis Fibromyalgia GERD (gastroesophageal reflux disease) Heart valve disease Hyperlipidemia Hypertension Neuropathy Pulmonary fibrosis (HCC) Renal artery stenosis (HCC) Restless leg syndrome Sleep apnea wears CPAP Social History Tobacco Use Smoking status: Former Types: Cigarettes Smokeless tobacco: Not on file Substance Use Topics Alcohol use: Not Currently Surgical History Past Surgical History: Procedure Laterality Date BACK SURGERY 05/2023 CORONAR (more content not included)...[facility]01-13-2025 NoteAmalia Heard APRN notified for prep for proc orders. Procedure being done: L/RHC Date/time of procedure: 04/08/24 9 am Procedure physician: Dr. Koo PRE-PROCEDURE CHECKLIST Completed: CMP, CBC, EKG, and H&P Date completed: H&P: 03/30/24 BMP: 03/31/24 (media section) CBC: 03/31/24 (media section) EK03/30/24 PT INR (if indicated): N/A Urine HCG (if indicated): N/A Last ICD/pacer check (if indicated): N/A ORDERS DAY OF PROCEDURE [x] N/A [] Urine HCG [] POC Glucose [] POC INR [] EKG on arrival [] BMP [] CBCM[facility]01-[facility]-2025 Telephone encounter Note* Telephone Encounter - Guillermina Owens RN - 04/05/2024 8:37 AM EST Amalia Heard APRN notified for prep for proc orders. Procedure being done: L/RHC Date/time of procedure: 04/08/24 9 am Procedure physician: Dr. Koo PRE-PROCEDURE CHECKLIST Completed: CMP, CBC, EKG, and H&P Date completed: H&P: 03/30/24 BMP: 03/31/24 (media section) CBC: 03/31/24 (media section) EK03/30/24 PT INR (if indicated): N/A Urine HCG (if indicated): N/A Last ICD/pacer check (if indicated): N/A ORDERS DAY OF PROCEDURE [x] N/A [] Urine HCG [] POC Glucose [] POC INR [] EKG on arrival [] BMP [] CBC [facility] [id number] Telephone encounter Note* Telephone Encounter - Елена Montemayor - 04/02/2024 5:16 PM EST Approved [id number] 04/02-06/30/2024 PB calendar updated and requested on [employer]. [facility] [id number] Telephone encounter Note* Telephone Encounter - Еленаmaster Montemayor - 04/02/2024 9:14 AM EST [facility] PFT and US scanned under Media [facility] [id number] Telephone encounter Note* Telephone Encounter - Еленаmaster Rileys - 04/01/2024 3:14 PM EST I called [facility] and requested PFT and carotid US. [facility] labs scanned under Media [facility] [id number] Telephone encounter Note* Telephone Encounter - Guillermina Owens RN - 03/31/2024 9:18 AM EST You are scheduled for L/RHC with Dr. Koo on 04/08/24 at 9 am Report to [facility], [facility] [facility] by 7:30 am You can park in the [address] Parking Deck or use [employer] parking (for a nominal fee of $6-7) and enter the hospital using the [address] entrance across from the parking deck You will need a designated class a regional drivers for the day of your procedure to take you home Nothing to eat or drink after midnight Please take your am medications with sips of water prior to leaving for the hospital. Please take your Aspirin and Plavix as usual before leaving for the hospital. Hold vitamins/supplements Get blood work done by 2 days prior at [facility]. Patient given lab orders to complete Please call the office at [phone] if you have any questions. Patient also had recent PFT and carotid US completed at [facility]. Jack Montemayor to obtain results [id number] NoteDx: I35.0 Procedure: R/C Date/Time: 04/08/24 at 9:00a Surgeon: PB Location: [facility] Admission: OP Anesthesia: n/a On PB calendar and printed card to start [facility] Telephone encounter Note* Telephone Encounter - Елена Montemayor - 03/30/2024 2:20 PM EST Dx: I35.0 Procedure: R/[facility] Date/Time: 04/08/24 at 9:00a Surgeon: PB Location: [facility] Admission: OP Anesthesia: n/a On PB calendar and printed card to start auth [facility] [id number] History of Present illness Narrative* Jensen Treadwell MD - 03/30/2024 1:30 PM EST Images from the original note were not included. [facility] Medical Group: Cardiothoracic Surgery Multidisciplinary Heart Valve Clinic Date: 03/30/24 Patient:Patrice Vergara 1950 73 y.o. male [id number] Subjective: HPI: Patrice Vergara [address] Bullock is being evaluated for aortic valve stenosis. Echocardiogram completed on 12/25/2023 showed moderate to severe aortic valve stenosis with peak/mean gradients 60/34 mm Hg. Per note, patient with past medical history pertinent for pulmonary fibrosis, COPD, CAD with PCI [id number], HTN, hyperlipidemia. Patient had office visit with marine technician Dr. Bullock on 03/01/24 to discuss echo results and progression of aortic valve stenosis. At that appointment pt was noted to have carotid bruits bilaterally, a grade 3/6 harsh systolic murmur, and reported that he had recently begun having shortness of breath and light headedness with activity. Echo completed on 12/25/23 showed LVEF 65%, mild to moderate eccentric mitral valve insufficiency, mild tricuspid valve insufficiency, mild focal aortic valve calcification, mild aortic valve insufficiency, and moderate to severe aortic valve stenosis with peak/mean gradients 60/34 mmHg. Medical History Past Medical History: Diagnosis Date Aortic stenosis COPD (chronic obstructive pulmonary disease) (HCC) Coronary artery disease Diverticulitis Fibromyalgia GERD (gastroesophageal reflux disease) Heart valve disease Hyperlipidemia Hypertension Neuropathy Pulmonary fibrosis (HCC) Renal artery stenosis (HCC) Restless leg syndrome Sleep apnea wears CPAP Blood thinner - Plavix Transthoracic Echocardiogram 12/25/23 Review of Systems Constitutional: Negative for activity change, chills, diaphoresis, fatigue and fever. HENT: Negative for nosebleeds and trouble swallowing. Eyes: Negative for discharge and visual disturbance. Respiratory: Positive for shortness of breath (on exertion; worsening last 6 months). Negative for apnea, cough, chest tightness and wheezing. Cardiovascular: Positive for leg swelling (bilateral ankle edema). Negative for chest pain and palpitations. Gastrointestinal: Negative for abdominal distention, abdominal pain, blood in stool, diarrhea, nausea and vomiting. Endocrine: Negative for cold intolerance and heat intolerance. Genitourinary: Negative for hematuria. Musculoskeletal: Negative for gait problem and myalgias. Skin: Negative for color change and rash. Neurological: Positive for dizziness. Negative for seizures, syncope, facial asymmetry, speech difficulty, weakness, light-headedness, numbness and headaches. Hematological: Does not bruise/bleed easily. Psychiatric/Behavioral: Negative for dysphoric mood. Allergies: Codeine and Lisinopril Past Medical History: has a past medical history of Aortic stenosis, COPD (chronic obstructive pulmonary disease) ([facility]), Coronary artery disease, Diverticulitis, Fibromyalgia, GERD (gastroesophageal reflux disease), Heartvalve disease, Hyperlipidemia, Hypertension, Neuropathy, Pulmonary fibrosis (HCC), Renal artery stenosis (HCC), Restless leg syndrome, and Sleep apnea. Past Surgical History: has a past surgical history that includes Coronary stent placement (03/2011); Back surgery; and Renal artery stent (2011). Social History: reports that he has quit smoking. His smoking use included cigarettes. He does not have any smokeless tobacco history on file. He reports that he does not currently use alcohol. He reports that he does not currently use drugs. Family History: family history includes Breast cancer in his sister; Cardiomyopathy in his brother; Coronary arterydisease in his brother and mother; Diabetes in his brother, mother, and sister; Hypertension in hismother. Medications: Prior to Admission medications Medication Sig Start Date End Date Taking? Authorizing Provider amLODIPine (Norvasc) 5 MG tablet Take 5 mg by mouth daily. 01/22/24 Historical Provider, aspirin 325 MG tablet Take 325 mg by mouth daily. Historical Provider, atorvastatin (Lipitor) 40 MG tablet Take 40 mg by mouth daily. 12/23/23 Historical Provider, carvedilol (Coreg) 25 MG tablet Take 12.5 mg by mouth 2 times daily (with meals). 02/07/24 Historical Provider, clopidogrel (Plavix) 75 MG tablet Take 75 mg by mouth daily. 03/02/24 Historical Provider, gabapentin (Neurontin) 400 MG capsule Take 800 mg by mouth 2 times daily. 02/23/24 Historical Provider, isosorbide mononitrate ER (Imdur) 30 MG 24 hr tablet Take 30 mg by mouth daily. 02/02/24 HistoricalProvider, nitroglycerin (Nitrostat) 0.[address] 0.4 mg under the tongue every 5 minutes as needed for chest pain. Historical Provider, omeprazole (PriLOSEC) [address] capsule Take 40 mg by mouth every morning (before breakfast). 02/12/24 Historical Provider, Spiriva Respimat 2.5 MCG/ACT inhaler Inhale 2 puffs daily. 12/08/23 Historical Provider, traMADol (Ultram) 50 MG tablet Take 50 mg by mouth every 6 hours as needed. 03/02/24 Historical Provider, Objective: BP (!) 154/80 (BP Location: Left arm, Patient Position: Sitting, BP Cuff Size: Adult) Pulse 51 Ht 5' 10 (1.778 m) Wt 173 lb (78.5 kg) SpO2 92% BMI 24.82 kg/m @[id number]@ Physical Exam Constitutional: General: He is not in acute distress. Appearance: Normal appearance. HENT: Head: Normocephalic and atraumatic. Right Ear: External ear normal. Left Ear: External ear normal. Nose: Nose normal. Mouth/Throat: Lips: [place]. Dentition: Normal dentition. Tongue: No lesions. Tongue does not deviate from midline. Eyes: General: Lids are normal. Conjunctiva/sclera: Conjunctivae normal. Neck: Thyroid: No thyroid mass or thyromegaly. Trachea: Trachea normal. Cardiovascular: Rate and Rhythm: Normal rate and regular rhythm. Pulses: No decreased pulses. Heart sounds: Heart sounds not distant. Murmur heard. No friction rub. Pulmonary: Effort: Pulmonary effort is normal. No accessory muscle usage. Breath sounds: Normal breath sounds and air entry. No stridor or decreased air movement. Abdominal: General: Bowel sounds are normal. Palpations: There is no mass. Tenderness: There is no abdominal tenderness. Hernia: No hernia is present. Musculoskeletal: Cervical back: Full passive range of motion without pain. No rigidity or crepitus. No pain with movement. Right lower leg: No edema. Left lower leg: No edema. Skin: General: Skin is warm. Capillary Refill: Capillary refill takes less than 2 seconds. Findings: No lesion, rash or wound. Comments: Color normal for ethnicity Neurological: Mental Status: He is alert. Psychiatric: Attention and Perception: Attention normal. Mood and Affect: Mood and affect normal. Behavior: Behavior is cooperative. Cognition and Memory: He does not exhibit impaired recent memory or impaired remote memory. Judgment: Judgment normal. Labs: Reviewed in EMR No results found for: WBC, HGB, HCT, MCV, PLT No results found for: NA, K, CL, CO2, BUN, CREATININE, GLUCOSE, CALCIUM Diagnostics: Reviewed in EMR Assessment/Plan: Severe, symptomatic aortic valve stenosis. We rev the echo Rec TAVR based upon age. Risks, benefits and alternatives discussed. Cath and cta pending Patient consents to surgical bailout: [] Yes [] No If No why: Disclaimers: INFORMED CONSENT: The nature and purpose of the proposed treatment and/or procedure have been discussed. The risks and benefits of the proposed treatment or procedures have been reviewed. Alternatives have been reviewed in addition to the risks and benefits of not receiving treatments or undergoingprocedures. Pursuant to this discussion, the patient agrees to undergo the proposed treatment or procedure. Captured images seen in this note are not a substitute for a comprehensive interpretation of the entire data set as reflected by the interpreting physician with regard to radiology, echocardiography,and other diagnostic images. documented in this [facility]01-07-2025 History of Present illness Narrative* Galo Koo MD - 03/30/2024 1:00 PM EST Images from the original note were not included. [facility] CARDIOLOGY - [place] [address] [facility] [address] Dept: [phone] Dept Visit type: New : 1950 Reason for Visit: Cardiac Valve Problem and New Patient (Heart Valve Clinic) Assessment and Plan 1. Essential hypertension - ECG 12 lead - CLINIC PERFORMED 2. Nonrheumatic aortic valve stenosis - CBC auto differential - Comprehensive metabolic panel - Case Request Time Study Engineer: Left and right heart cath / coronary angiography This is a very pleasant 73 y.o. male with severe and symptomatic aortic stenosis. he is likely in need of aortic valve replacement. Will get a cath to evaluate for concomitant coronary dsiease, Will also get a CTA for anatomic planning. If favorable anatomy for transfemoral TAVR, will likely proceed with TAVR. This decision was made after multidisciplinary discussion, using a shared decision making strategy. CT surgery also saw patient to aide in discussion. It was a pleasure seeing your patient in the office today. Please do not hesitate to call me with any questions. Follow up for Recheck after cath and CTA. Subjective HPI Patrice Vergara is a very pleasant 73 y.o. male who is here for evaluation of his aortic valve disease. his symptoms include progressive dyspnea on exertion and lower extremity edema. . his most recent echo shows likely severe aortic stenosis with mean gradient 34mmHg, peak velocity 3.9m/s, DI 0.27,SHEKHAR 0.9cm2. Review of Systems Constitutional: Negative for activity change, chills, diaphoresis, fatigue and fever. HENT: Negative for nosebleeds and trouble swallowing. Eyes: Negative for discharge and visual disturbance. Respiratory: Positive for shortness of breath (on exertion; worsening in [place]/ September). Negative for apnea, cough, chest tightness and wheezing. Cardiovascular: Positive for leg swelling (bilateral leg edema). Negative for chest pain and palpitations. Gastrointestinal: Negative for abdominal distention, abdominal pain, blood in stool, diarrhea, nausea and vomiting. Endocrine: Negative for cold intolerance and heat intolerance. Genitourinary: Negative for hematuria. Musculoskeletal: Negative for gait problem and myalgias. Skin: Negative for color change and rash. Neurological: Positive for dizziness. Negative for seizures, syncope, facial asymmetry, speech difficulty, weakness, light-headedness, numbness and headaches. Hematological: Does not bruise/bleed easily. Psychiatric/Behavioral: Negative for dysphoric mood. Allergies Allergen Reactions Codeine Shortness of breath Lisinopril Shortness of breath Outpatient Medications Prior to Visit Medication Sig Dispense Refill amLODIPine (Norvasc) 5 MG tablet Take 5 mg by mouth daily. aspirin 325 MG tablet Take 325 mg by mouth daily. atorvastatin (Lipitor) 40 MG tablet Take 40 mg by mouth daily. carvedilol (Coreg) 25 MG tablet Take 12.5 mg by mouth 2 times daily (with meals). clopidogrel (Plavix) 75 MG tablet Take 75 mg by mouth daily. gabapentin (Neurontin) 400 MG capsule Take 800 mg by mouth 2 times daily. isosorbide mononitrate ER (Imdur) 30 MG 24 hr tablet Take 30 mg by mouth daily. nitroglycerin (Nitrostat) 0.[address] 0.4 mg under the tongue every 5 minutes as needed for chest pain. omeprazole (PriLOSEC) [address] capsule Take 40 mg by mouth every morning (before breakfast). Spiriva Respimat 2.5 MCG/ACT inhaler Inhale 2 puffs daily. traMADol (Ultram) 50 MG tablet Take 50 mg by mouth every 6 hours as needed. No facility-administered medications prior to visit. Past Medical History: Diagnosis Date Aortic stenosis COPD (chronic obstructive pulmonary disease) (HCC) Coronary artery disease Diverticulitis Fibromyalgia GERD (gastroesophageal reflux disease) Heart valve disease Hyperlipidemia Hypertension Neuropathy Pulmonary fibrosis (HCC) Renal artery stenosis (HCC) Restless leg syndrome Sleep apnea wears CPAP Social History Tobacco Use Smoking status: Former Types: Cigarettes Smokeless tobacco: Not on file Substance Use Topics Alcohol use: Not Currently Past Surgical History: Procedure Laterality Date BACK SURGERY 05/2023 CORONARY STENT PLACEMENT 03/2011 ALIA circumflex RENAL ARTERY STENT 03/2011 Dr. Chilel Family History Problem Relation Name Age of Onset Diabetes Mother Hypertension Mother Coronary artery disease Mother Breast cancer Sister Diabetes Sister Diabetes Brother Cardiomyopathy Brother Coronary artery disease Brother Objective Vitals: 03/30/24 1241 03/30/24 1257 BP: (!) 154/80 138/82 BP Location: Left arm Right arm Patient Position: Sitting Sitting BP Cuff Size: Adult Adult Pulse: 51 SpO2: 92% Weight: 173 lb 3.2 oz (78.6 kg) Height: 5' 10 (1.778 m) Physical Exam Constitutional: General: He is not in acute distress. Appearance: He is not diaphoretic. HENT: Head: Normocephalic. Nose: Nose normal. Mouth/Throat: Mouth: Mucous membranes are moist. Pharynx: No oropharyngeal exudate. Eyes: General: No scleral icterus. Right eye: No discharge. Left eye: No discharge. Neck: Thyroid: No thyromegaly. Vascular: No carotid bruit or JVD. Cardiovascular: Rate and Rhythm: Normal rate and regular rhythm. Pulses: Normal pulses. Heart sounds: Murmur heard. Systolic murmur is present with a grade of 3/6. Pulmonary: Effort: Pulmonary effort is normal. Breath sounds: Normal breath sounds. Abdominal: General: Bowel sounds are normal. There is no distension. Palpations: There is no hepatomegaly. Tenderness: There is no abdominal tenderness. Musculoskeletal: General: Normal range of motion. Cervical back: Normal range of motion. Right lower leg: No edema. Left lower leg: No edema. Skin: General: Skin is warm and dry. Neurological: Mental Status: He is oriented to person, place, and time. Psychiatric: Mood and Affect: Mood normal. Behavior: Behavior normal. Data Reviewed and Summarized No results found for: EFBP, PLVEF, LVEFPHYS, LVEF2D, EF Review of tests/labs done/ordered within my specialty: EKG in office: Review of tests/labs done/ordered outside my specialty: Independent interpretation of tests: I personally reviewed the images from Patrice Sky Jai's most recent TTE in the office today, to helpwith medical decision making. My interpretation is noted in the HPI section of this note. Galo Koo MD documented in this [facility]12-11-[facility] for this patient [facility] be [facility] . 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 March 01, 2024 10:44am Nonrheumatic aortic (valve) stenosis chronic March 08 7:44am Obstructive sleep apnea chronic D ecember 2023 7:44am 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 March 08, 2024 7:44am Smoking greater than 20 pack years chronic March 08 7:44am Oral candidiasis acute April 13, 2024 8:39am Pulmonary fibrosis acute 2024 8:39am Chronic obstructive lung disease chronic April 13 8:39am Nonrheumatic aortic (valve) stenosis chronic April 13 8:39am Obstructive sleep apnea chronic J anuary 2024 8:39am 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 April 13, 2024 8:39am Smoking greater than 20 pack years chronic April 13 8:39am Bilateral carotid artery stenosis acute May 20 9:49am History of transcatheter aor tic valve replacement (TAVR) acute 2024 9:49am HLD (hyperlipidemia) acute 2024 9:49am Atherosclerotic heart diseas e of [place] coronary artery without angina pectoris chronic May 20, 2024 9:49am Hypertension chronic April 9:49am Pulmonary fibrosis acute June 09, 2024 8:34am Chronic obstructive lung disease chronic June 09, 2024 8:34am Obstructive sleep apnea chronic M arch 2024 8:34am 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 Beulah Catherine, DO Status:ADM IN Location: MS3 GT991-3 Subjective Subjective Had urinary retention issues overnight that have since resolved, tolerating a diet today worked with physical therapy without issue Objective Data Objective Data Vital Signs: Vital Signs Temp Pulse Resp BP Pulse Ox O2 Del Method O2 Flow Rate 98.7 F 76 16 104/61 96 Room Air 1.5 05/15/23 14:07 05/15/23 14:31 05/15/23 14:31 05/15/23 14:07 05/15/23 14:07 05/15/23 14:11 05/15/23 07:08 FiO2 21 05/14/23 17:38 Oxygen Flow Rate (L/min) 1.5 Oxygen Delivery Method Room Air Weight: 163 lb 2.273 oz Body Mass Index (BMI) 23.3 Intake & Output: Intake and Output for Last 24 Hours 05/14/23 05/15/23 05/16/23 03:59 03:59 03:59 Intake Total 5732 / 5732 1510 / 1510 Output Total 2049 / 2049 400 / 400 Balance 3682 / 3682 1110 / 1110 Lab / Micro Data 05/15/23 06:55 05/15/23 06:55 Labs: Laboratory Results - last 24 hr 05/15/23 06:55: WBC 14.3 H, RBC 2.99 L, Hgb 9.0 L, Hct 27.3 L, MCV 91.3, MCH 30.1, MCHC 33.0, RDW Std Deviation 46.4 H, RDW Coeff of Cristopher 13.9, Plt Count 132 L, MPV 10.0, Sodium 139, Potassium 4.2, Chloride 109 H, Carbon Dioxide 26.0, Anion Gap 4 L, BUN 13, Creatinine 1.08, Estim Creat Clear Calc 62.90, Est GFR (MDRD) Af Amer 86, Est GFR (MDRD) Non-Af 71, BUN/Creatinine Ratio 12.0, Glucose 129 H, Calcium 8.0 L Micro: Microbiology 04/30/23 07:39 Swab (Method) Nasal Screen MRSA/MSSA - Final Radiography Diagnostic Testing: Radiology Impression Lumbar Spine X-Ray 05/14/23 08:50 IMPRESSION: Intraoperative fluoroscopic guidance for posterior fusion spanning from L3 to S1 as above. Electronically Signed: Lamin Velasco MD at 22:03 EST , Lumbar Spine X-Ray 05/15/23 08:29 IMPRESSION: Status post fusion at the L3 L5 and L5-S1 levels with prosthetic disc placement. Electronically Signed: Ferny Calderon MD at 14:53 EST , Physical Exam Narrative General: Alert, Oriented x3, Cooperative, No apparent distress HEENT: Atraumatic, PERRLA, EOMI, Normocephalic Oral: Moist Mucosa Neck: Supple, No JVD Lungs: Diminished, Normal air movement, No rhonchi, No wheeze, No rales Cardiovascular: Regular rate, Regular Rhythm, Normal S1, Normal S2, No murmurs Abdomen: Soft, Non Tender, Non-Distended, No Hepato-splenomegaly Extremities: No edema, Capillary Refill Less than 3 Seconds Skin: Dressing CDI Musculoskeletal: No Tenderness to Palpation of Joints or Extremities Neurological: No focal neurological deficits, Motor Exam 5/5 strength throughout, Sensory exam intact to light touch and pain Psych/Mental Status: Normal Affect, Appropriate Assessment & Plan Assessment/Plan (1) S/P lumbar fusion: (2) Obstructive sleep apnea: (3) Chronic obstructive lung disease: (4) Benign essential hypertension: (5) Atherosclerotic heart disease of [place] coronary artery without angina pectoris: QUALIFIERS: [place] vs. transplanted heart: [place] heart QualifiedCode(s): I25.10 - Atherosclerotic heart disease of [place] coronary artery without angina pectoris PLAN: Plan #Lumbar stenosis s/p -s/p L3-S1 anterior and posterior fusion due to disc degeneration and foraminalstenosis 05/14 w/ Dr. Irving -PT/OT -Pain control -Management per primary ? Overnight had difficulty urinating however that is resolved medically stable for discharge if okay with surgery, leukocytosis is reactive #HTN -BP was soft post op and has been variable -Blood pressures are stable this morning, can resume all home meds # COPD -Continue home inhalers #GERD -Continue PPI #HEATHER -Continue cpap #Hx CAD -W/ stent in 2011 -Resume home aspirin and Plavix when cleared to do so per surgery -Continue statin #DVT ppx: Timing at discretion of surgeon Charges/Coding Visit Charges Inpatient E&M: 35374 Subs Hosp L2 05/15/23 1503 <Electronically signed by Roland Cruz MD> Cosigner Signature (if applicable): CC: ~ Signed [facility] Work Phone: 1(208) 737-118402-22-2024 Progress note Author Amarjit Irving [facility] May 15, 2023 8:47am Note Date/Time May 15, 2023 8:47am [facility] Medical Records Department [address] [place] [id number] Progress Note - Orthopedic 05/15/23 0843 MR#: [id number] Acct: [id number] Name: PATRICE VERGARA Rep #:[id number] : 1950 72 From: Amarjit Irving MD PCP: Dr. Beulah Catherine, DO Status:ADM IN Location: DC3 WI361-6 Subjective Subjective Postop day 1 status post L3-S1. Pain well-controlled. Patient was able to stand and use bedside urinal. Has been passing gas. Tolerating clear liquids. Eager to get up and walk this morning. Objective Data Objective Data Vital Signs: Vital Signs Temp Pulse Resp BP Pulse Ox O2 Del Method O2 Flow Rate 98.8 F 78 16 110/64 98 Room Air 2 05/15/23 06:40 05/15/23 06:40 05/15/23 06:40 05/15/23 06:40 05/15/23 06:40 05/15/23 07:56 05/15/23 06:40 FiO2 21 05/14/23 17:38 Oxygen Flow Rate (L/min) 2 Oxygen Delivery Method Room Air Weight: 163 lb 2.273 oz Body Mass Index (BMI) 23.3 Intake & Output: Intake and Output for Last 24 Hours 05/13/23 05/14/23 05/15/23 23:59 23:59 23:59 Intake Total 5732 / 5732 1510 / 1510 Output Total 2049 / 2049 400 / 400 Balance 3682 / 3682 1110 / 1110 Lab / Micro Data 05/15/23 06:55 05/15/23 06:55 Labs: Laboratory Results - last 24 hr 05/15/23 06:55: WBC 14.3 H, RBC 2.99 L, Hgb 9.0 L, Hct 27.3 L, MCV 91.3, MCH 30.1, MCHC 33.0, RDW Std Deviation 46.4 H, RDW Coeff of Cristopher 13.9, Plt Count 132 L, MPV 10.0, Sodium 139, Potassium 4.2, Chloride 109 H, Carbon Dioxide 26.0, Anion Gap 4 L, BUN 13, Creatinine 1.08, Estim Creat Clear Calc 62.90, Est GFR (MDRD) Af Amer 86, Est GFR (MDRD) Non-Af 71, BUN/Creatinine Ratio 12.0, Glucose 129 H, Calcium 8.0 L Micro: Microbiology 04/30/23 07:39 Swab (Method) Nasal Screen MRSA/MSSA - Final Radiography Diagnostic Testing: Radiology Impression Lumbar Spine X-Ray 05/14/23 08:50 IMPRESSION: Intraoperative fluoroscopic guidance for posterior fusion spanning from L3 to S1 as above. Electronically Signed: Lamin Velasco MD at 22:03 EST , Physical Exam Narrative Exertion the back and belly show dressings CDI. Neurologic examination lower extremity shows 5 x 5 power in all muscles normal sensations in all dermatomes. Patient explains mild soreness in the right anterior thigh which has been present for couple of days now. Assessment & Plan Assessment/Plan (1) S/P lumbar fusion: PLAN: Plan Explained to patient that he can ambulate with nursing assistance and does not have to wait for physical therapy to be able to get up and about. PT OT evaluation today for discharge recommendations. Upright x-rays today. Appreciate hospitalist comanagement. Will advance diet to regular. If tolerates solid lunch without nausea or vomiting and clears PT, potential discharge this evening. 05/15/23 0847 <Electronically signed by Amarjit Irving MD> Cosigner Signature (if applicable): CC: ~ Signed [facility] Work Phone: 1(617) 266-537402-21-2024 Progress note Author Raiza Evans [facility] May 14, 2023 9:25pm Note Date/Time May 14, 2023 9:26pm [facility] Medical Records Department [address] [place] [id number] Progress Note - Hospitalist 05/14/232119 MR#: [id number] Acct: [id number] Name: PATRICE VERGARA Rep #:[id number] : 1950 72 From: Raiza Evans MD PCP: Dr. Beulah Catherine, DO Status:ADM IN Location: [address] Reason for Visit Reason for Visit: Diagnoses Encounter for other preprocedural examination (05/14/23) Subjective Subjective 72-year-old male history hypertension, GERD, CAD w/ stent in 2011, COPD who presented to [facility] 05/14/2023 for L3-S1 anterior and posterior fusion due to disc degeneration and foraminal stenosis. Hospitalist contacted for admission. Patient evaluated at bedside. Patient resting comfortably and feeling well post surgery, has no physical complaints or concerns. Objective Data Objective Data Vital Signs: Vital Signs Temp Pulse Resp BP Pulse Ox O2 Del Method O2 Flow Rate 98.2 F 75 16 129/76 H 98 Room Air 4 05/14/23 20:40 05/14/23 20:40 05/14/23 20:40 05/14/23 20:40 05/14/23 20:40 05/14/23 20:40 05/14/23 18:40 FiO2 21 05/14/23 17:38 Oxygen Flow Rate (L/min) 4 Oxygen Delivery Method Room Air Weight: 74 kg Body Mass Index (BMI) 23.3 Intake & Output: Intake and Output for Last 24 Hours 05/12/23 05/13/23 05/14/23 23:59 23:59 23:59 Intake Total 5322 / 5322 Output Total 1450 / 1450 Balance 3872 / 3872 Lab / Micro Data 04/30/23 07:39 04/30/23 07:39 Labs: Laboratory Results - last 24 hr 05/14/23 06:17: POC Glucose 95 Micro: Microbiology 04/30/23 07:39 Swab (Method) Nasal Screen MRSA/MSSA - Final Physical Exam Narrative General: Alert, oriented, no apparent distress HEENT: Atraumatic, normocephalic Eyes: Anicteric, normal conjunctiva, extraocular movements grossly intact Neck: Supple Respiratory: Clear to auscultation bilaterally, normal respiratory effort Cardiovascular: Regular rate and rhythm GI: Soft, nontender, nondistended Extremities: No edema Musculoskeletal: Moving all extremities Neuro: No overt focal neurological deficits Skin: No rashes appreciated Psych: Cooperative Assessment & Plan Assessment/Plan (1) S/P lumbar fusion: (2) Obstructive sleep apnea: (3) Chronic obstructive lung disease: (4) Benign essential hypertension: (5) Atherosclerotic heart disease of [place] coronary artery without angina pectoris: QUALIFIERS: [place] vs. transplanted heart: [place] heart QualifiedCode(s): I25.10 - Atherosclerotic heart disease of [place] coronary artery without angina pectoris PLAN: Plan #Lumbar stenosis s/p -s/p L3-S1 anterior and posterior fusion due to disc degeneration and foraminalstenosis 05/14 w/ Dr. Irving -PT/OT -Pain control -Management per primary #HTN -BP was soft post op and has been variable -Hold amlodipine -Will add holding parameters to coreg # COPD -Continue home inhalers #GERD -Continue PPI #HEATHER -Continue cpap #Hx CAD -W/ stent in 2011 -Resume home aspirin and Plavix when cleared to do so per surgery -Continue statin #DVT ppx: Timing at discretion of surgeon Raiza Evans MD Charges/Coding Visit Charges Inpatient E&M: 88110 Subs Hosp L1 05/14/232124 <Electronically signed by Raiza Evans MD> Cosigner Signature (if applicable): CC: ~ Signed [facility] Work Phone: 1(630) 446-830702-21-2024 Procedure [facility] 05-14-2023 Procedure [facility]02-21-2024 History and physical note Author Amarjit Irving [facility] May 14, 2023 8:19am Note Date/Time May 14, 2023 8:19am [facility] Medical Records Department [address] [place] [address] History & Physical Exam 05/14/23 0818 MR#: [id number] Acct: [id number] Name: PATRICE VERGARA Rep #:[id number] : 1950 72 From: Amarjit Irving MD PCP: Dr. Beulah Catherine, DO Status:ADM IN Location: [facility] A History and Physical Date of Admission: 05/14/23 MR#: [id number] Acct: [id number] Name: PATRICE VERGARA Rep #: [id number] : 1950 Provider: Dr. Amarjit Irving MD Age/Sex: 72/M [facility] Status: Signed Intake Vital Signs 01/29/2308:54 05/02/2411:44 Height 5 ft 10 in 5 ft 10 in Intake Visit Reasons: lumbar spine Chief Complaint: pre op Is patient in pain?: Yes (lumbar spine) Pain scale (1-10): 8 Allergies codeine Allergy (Verified 05/02/23 14:55) Shortness of breathlisinopril Allergy (Verified 05/02/23 14:55) Shortness of breath Medications aspirin 325 mg tablet 325 mg PO DAILY@0800 [facility] #30 tabs 11/03/14 [Rx Confirmed 05/02/23] omeprazole 40 mg capsule,delayed release 40 mg PO DAILY Indigestion 04/01/22 [History Confirmed 05/02/23] amlodipine 5 mg tablet 5 mg PO DAILY HYPERTENSION #90 tabs 07/23/22 [Rx Confirmed 05/02/23] clopidogrel 75 mg tablet 75 mg PO DAILY BLOOD THINNER #90 tabs 08/21/22 [Rx Confirmed 05/02/23] isosorbide mononitrate 30 mg tablet,extended release 24 hr 30 mg PO DAILY HYPERTENSION #90 tabs 11/01/22 [Rx Confirmed 05/02/23] nitroglycerin 0.4 mg sublingual tablet 0.4 mg sublingual Q5M PRN Chest Pain #25 tabs 12/05/22 [Rx Confirmed 05/02/23] atorvastatin 40 mg tablet 40 mg PO QDAY HYPERLIPIDEMIA 04/23/23 [History Confirmed 05/02/23] carvedilol 25 mg tablet 12.5 mg PO BID HYPERTENSION 04/23/23 [History Confirmed 05/02/23] gabapentin 400 mg capsule 800 mg PO BID PAIN 04/23/23 [History Confirmed 05/02/23] tiotropium bromide 1.25 mcg/actuation mist for inhalation (Spiriva Respimat) 2 inh inhalation DAILY COPD 04/23/23 [History Confirmed 05/02/23] tramadol 50 mg tablet 100 mg PO BID PAIN 04/23/23 [History Confirmed 05/02/23] PFSH Medical History Abdominal pain Acute exacerbation of chronic obstructive airways disease Alcohol use Aortic stenosis Arthritis Atherosclerotic heart disease of [place] coronary artery without angina pectoris Back pain Benign essential hypertension Bilateral carotid artery stenosis Bilateral carotid bruits Cardiology follow-up encounter Carotid atherosclerosis Chest pain Chronic back pain Chronic obstructive lung disease Complete edentulism, class III COVID CPAP (continuous positive airway pressure) dependence DJD (degenerative joint disease) Fibromyalgia Former smoker GERD (gastroesophageal reflux disease) H/o addiction H/o blood transfusion Heart disease Hepatitis Hepatitis C Hiatal hernia High cholesterol History of diverticulitis History of echocardiogram History of hiatal hernia History of pain when walking History of stress test HLD (hyperlipidemia) Hypertension Injury of back Injury of head and neck Leg cramps Loss of consciousness Loss of hearing Lumbar pain Lung disease Marijuana use Neck fracture Neuropathy No natural teeth Nonrheumatic aortic (valve) stenosis Obstructive sleep apnea Peripheral artery disease Renal artery stenosis Restless legs Right arm weakness Right leg weakness Sleep apnea Venous insufficiency Venous ulcer Wears glasses Wears hearing aid Surgical History History of back surgery History of cardiac catheterization History of coronary artery stent placement History of nasal surgery History of stent insertion of renal artery Hx of colonoscopy Hx of hemorrhoidectomy Postsurgical percutaneous transluminal coronary angioplasty (PTCA) status (~03/2011) Presence of stent in coronary artery (~03/2011) Family History Brother Tonsil cancer Cancer Skin DiabetesSister Breast cancer DiabetesMother Diabetes Hypertension CAD (coronary artery disease) Myocardial infarctionBrother CAD (coronary artery disease) Myocardial infarction CardiomyopathyFather Cancer Social History household members: spouse housing: house current occupational status: employed Smoking Status: Former smoker alcohol intake: never substance use type: marijuana and other details: h/o addiction caffeine: Yes what type of physical activity do you participate in: walking frequency: 5-6 times per week seatbelt use: always do you feel safe at home: Yes HPI lumbar spine Details: This documentation accurately reflects the service provided and the decisions made by me, Dr. Amarjit Irving MD 05/02/23 3620. Part of today?s visit was documented by [ ], acting as scribe. PATRICE VERGARA is a 72 year old M here today for preop appointment. He is scheduled for L3-L4 and L5-1 anterior and posterior fusion. L3-S1 revision posterior instrumentation. Patrice continues to have low back pain radiating down to the left lower extremity. He underwent preoperative clearance and is scheduled to undergo surgery in 2 weeks. He is here for his preop appointment. Following his his previous history. 04/01/23: Patrice continues to have low back pain radiating down to the left lower extremity. At his last visit I ordered a neck MRI because of his symptoms of balance difficulties. He says that his balance has been stable. He is here to review the cervical MRI and discuss further treatment of his lumbar pathology. To review, he came in with prior history as follows. 02/28/23: Patrice continues to have lower back pain left lateral thigh numbness and left lower extremity radiating pain to the toes. He also continues to have difficulty with numbness and dexterity issues in both hands and balance issues which seem to be slightly worsening with time. He was seen by me about a month ago and was advised to obtain a new MRI for his lumbar spine. He is here to review the MRI images. To review, Rodriguez has had numerous injections every few months for many years now. His last injection was in November. He feels that after his last injection he started having difficulty with balance such that he would feel severe weakness in both lower extremities and his knees would give out on him. He says that this balance issue has been worsening over the last 1 to 2 months. His lower back hurts in the PSIS region now bilaterally. He has radicular pain going into the left lower extremity along the lateral thigh lateral leg and to the toes. He also feels numb equally on bilateral anterior thighs. He has occasional neck pain without radiculopathy. He has early difficulty with dexterity such that he drops things easily from his hand. He isnondiabetic. He quit smoking and alcohol a few years ago. He has done physicaltherapy in the past which only worsened his pain. His previous L4-5 fusion was 8 to 9 years ago. He has been seen by Dr. Glez in 2020. Ortho Exam General General: Yes no acute distress Neurologic: Yes alert and Yes oriented x3 Spine SPINE TESTING CERVICAL THORACIC LUMBAR Musculoskeletal Strength 0=absent - 5=normal Details: Examination of the lower back shows midline scar well-healed. There is bilateral paraspinal tenderness in lower lumbar spine. Lumbar flexion hurts more than lumbar extension. Neurological evaluation of both upper and lower extremity shows 5 x 5 power in all muscle groups, except bilateral ankle dorsiflexion which is 4+. Chiki's negative. Romberg's is positive. Tandem gait shows imbalance. Knee reflexes are brisk. There is no ankle clonus. Coding Level of Care Code Off vis,est,level 3 Diagnoses Lumbar radiculopathy M54.16 S/P lumbar fusion Z98.1 Time Spent (min) 30 Assessment and Plan Assessment and Plan (1) Lumbar radiculopathy: Status: Acute (2) S/P lumbar fusion: Status: Acute Plan His lumbar spine was again reviewed which shows stable L4-5 fusion with adjacentsegment degeneration at L3-4 and L5-S1 causing significant foraminal stenosis worse on the left side. Explained to him options of treatment for this which include continued nonoperative treat measures versus surgery. Patient has had injections and physical therapy without significant help in the recent past. Hewishes to proceed with surgical intervention as this symptoms are affecting his quality of life. Because of fusion at L4-5 and because of foraminal stenosis above and below, I recommended surgery in the form of L3-4 and L5-S1 decompression fusion. This would be with L3-4 and L5-S1 anterior posterior fusion, indirect decompression, removal and reinsertion of hardware posteriorly from L3-S1. All risk benefits and alternatives were discussed in detail. Patient has COPD and sleep apnea and will require clearance prior to surgery. The risks of surgery include but are not limited to infection, bleeding, injury to nerves and vessels, need for further surgeries, pseudoarthrosis, hardware failure, vascular injury, DVT, pulmonary embolism, cardiopulmonary event, foot drop, persistent axial or radicular pain. Patient understands and agrees to proceed with surgery. Consent was signed. Cardiac & pulmonary clearances reviewed. 05/14/23 0819 <Electronically signed by Amarjit Irving MD> Cosigner Signature (if applicable): CC: Dr. Amarjit Irving MD; Dr. Beulah Catherine, DO~ Signed [facility] Work Phone: 1(773) 640-712302-12-2024 Procedure [facility] Evaluation noteNo assessment information availableBl[facility] Work Phone: Evaluation note* Diagnosis Onset Date Resolution Status Bilateral carotid artery stenosis acute Chronic heartburn acute Colon polyps acute Presence of stent in coronary artery 2011 chronic Bilateral carotid artery stenosis acute HLD (hyperlipidemia) acute Nonrheumatic aortic (valve) stenosis acute Preoperative cardiovascular examination acute Renal artery stenosis acute Atherosclerotic heart diseas e of [place] coronary artery without angina pectoris chronic Benign essential hypertension chronic Bilateral carotid bruits chr onic Presence of stent in coronary artery 2011 [facility] Work Phone: Evaluation note* Diagnosis Onset Date Resolution Status Bilateral carotid artery stenosis acute HLD (hyperlipidemia) acute Nonrheumatic aortic (valve) stenosis acute Renal artery stenosis acute Atherosclerotic heart diseas e of [place] coronary artery without angina pectoris chronic Benign essential hypertension chronic Presence of stent in coronary artery 2011 [facility] Work Phone: Evaluation note* Diagnosis Onset Date Resolution Status Bilateral carotid artery stenosis acute HLD (hyperlipidemia) acute Nonrheumatic aortic (valve) stenosis acute Renal artery stenosis acute Atherosclerotic heart diseas e of [place] coronary artery without angina pectoris chronic Benign essential hypertension [facility] Work Phone: Evaluation note* Diagnosis Onset Date Resolution Status Bilateral carotid artery stenosis acute HLD (hyperlipidemia) acute Nonrheumatic aortic (valve) stenosis acute Renal artery stenosis acute Atherosclerotic heart diseas e of [place] coronary artery without angina pectoris chronic Benign essential hypertension chronic Lumbar radiculopathy acute S/P lumbar fusion acute Cervical myelopathy acute Lumbar radiculopathy acute S/P lumbar fusion acute [facility] Work Phone: Evaluation note* Diagnosis Onset Date Resolution Status Bilateral carotid artery stenosis acute HLD (hyperlipidemia) acute Nonrheumatic aortic (valve) stenosis acute Renal artery stenosis acute Atherosclerotic heart diseas e of [place] coronary artery without angina pectoris chronic Benign essential hypertension chronic Lumbar radiculopathy acute S/P lumbar fusion acute Cervical myelopathy acute Lumbar radiculopathy acute S/P lumbar fusion acute Lumbar radiculopathy acute S/P lumbar fusion acute [facility] Work Phone: Evaluation note* Diagnosis Onset Date Resolution Status Lumbar radiculopathy acute S/P lumbar fusion acute Cervical myelopathy acute Lumbar radiculopathy acute S/P lumbar fusion acute Lumbar radiculopathy acute S/P lumbar fusion acute Nonrheumatic aortic (valve) stenosis acute Atherosclerotic heart diseas e of [place] coronary artery without angina pectoris chronic Presence of stent in coronary artery 2011 chronic Chronic 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 back 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 Chronic obstructive lung disease chronic Obstructive sleep apnea 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 Lumbar radiculopathy acute S/P lumbar fusion acute [facility] Work Phone: Evaluation note* Diagnosis Onset Date Resolution Status Lumbar radiculopathy acute S/P lumbar fusion acute Cervical myelopathy acute Lumbar radiculopathy acute S/P lumbar fusion acute Lumbar radiculopathy acute S/P lumbar fusion acute Nonrheumatic aortic (valve) stenosis acute Atherosclerotic heart diseas e of [place] coronary artery without angina pectoris chronic Presence of stent in coronary artery 2011 chronic Chronic lower back 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 Chronic obstructive lung disease chronic Obstructive sleep apnea 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 Lumbar radiculopathy acute S/P lumbar fusion acute S/P lumbar fusion acute Atherosclerotic heart diseas e of [place] coronary artery without angina pectoris chronic Benign essential hypertension chronic Chronic obstructive lung disease chronic Obstructive sleep apnea 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 [facility] Work Phone: Evaluation note* Diagnosis Nonrheumatic aortic valve stenosis- [facility] Essential hypertension Unspecified essential hypertension Nonrheumatic aortic valve stenosis [facility] Diagnosis Nonrheumatic aortic valve stenosis- [facility] Diagnosis Severe aortic stenosis- Primary Aortic valve disorders Severe aortic stenosis- Primary Aortic valve disorders [facility]* Diagnosis Severe aortic stenosis- Primary Aortic valve disorders Nonrheumatic aortic valve stenosis [facility]* Diagnosis Severe aortic stenosis- Primary Aortic valve disorders Severe aortic stenosis Aortic valve disorders [facility]* Diagnosis Severe aortic stenosis- Primary Aortic valve disorders Severe aortic stenosis- Primary Aortic valve disorders Severe aortic stenosis Aortic valve disorders [facility]* Diagnosis Severe aortic stenosis- Primary Aortic valve disorders Severe aortic stenosis- Primary Aortic valve disorders Severe aortic stenosis Aortic valve disorders [facility]* Diagnosis Severe aortic stenosis- Primary Aortic valve disorders Severe aortic stenosis Aortic valve disorders [facility]* Diagnosis Severe aortic stenosis- Primary Aortic valve disorders [facility]* Diagnosis Severe aortic stenosis- Primary Aortic valve disorders Coronary artery disease involving [place] coronary artery of [place] heart without angina pectoris Essential hypertension Unspecified essential hypertension Mixed hyperlipidemia S/P TAVR (transcatheter aortic valve replacement) [facility]* Diagnosis Severe aortic stenosis- Primary Aortic valve disorders Coronary artery disease involving [place] coronary artery of [place] heart without angina pectoris Essential hypertension Unspecified essential hypertension Mixed hyperlipidemia S/P TAVR (transcatheter aortic valve replacement) Severe aortic stenosis- Primary Aortic valve disorders S/P TAVR (transcatheter aortic valve replacement) Coronary artery disease involving [place] coronary artery of [place] heart without angina pectoris Essential hypertension Unspecified essential hypertension [facility]* Diagnosis Severe aortic stenosis- Primary Aortic valve disorders Coronary artery disease involving [place] coronary artery of [place] heart without angina pectoris Essential hypertension Unspecified essential hypertension Mixed hyperlipidemia S/P TAVR (transcatheter aortic valve replacement) Severe aortic stenosis Aortic valve disorders Severe aortic stenosis- Primary Aortic valve disorders S/P TAVR (transcatheter aortic valve replacement) Coronary artery disease involving [place] coronary artery of [place] heart without angina pectoris Essential hypertension Unspecified essential hypertension [facility] for [facility] Narrative* Auth/Cert (Routine) Specialty Diagnoses / Procedures Referred By Tod t Referred To Contact Diagnoses Nonrheumatic aortic valve stenosis Nonrheumatic aortic valve stenosis [I35.0] Procedures AL R & L HRT CATH WINJX HRT ART& L VENTR IMG Left and right heart cath / coronary angiography Galo Koo MD [address] [place] [address] Phone: tel: fax: Referral ID Status Reason Start Date Expiration Date Visits Re quested Visits Authorized [id number] 03/30/2024 [address] [facility] for visit Narrative* Imaging (Routine) - Closed Specialty Diagnoses / Procedures [facility] Referred To Contact Radiology Diagnoses Severe aortic stenosis Procedures CTA Angiogram TAVR Marietta aBnuelos, PROVIDER SCRIBE - [facility] [address] [place] [address] Phone: tel: fax: Referral ID Status Reason Start Date Expiration Date Visits Re quested Visits Authorized [id number] Closed 04/08/2024 04/08/2025 [address] [facility] for visit Narrative* Auth/Cert (Routine) Specialty Diagnoses / Procedures [facility] Referred To Contact Diagnoses Severe aortic stenosis Procedures TRANSCATHETER AORTIC VALVE REPLACEMENT, TRANSTHORACIC ECHOCARDIOGRAM TRANSCATHETER AORTIC VALVE REPLACEMENT, TRANSTHORACIC ECHOCARDIOGRAM Galo Koo MD [address] [place] [address] Phone: tel: fax: [facility] [address] [place] [address] Phone: tel: Referral ID Status Reason Start Date Expiration Date Visits Re quested Visits Authorized [id number] [address] [facility] for visit Narrative* Imaging (Routine) - Closed Specialty Diagnoses / Procedures [facility] Referred To Contact Cardiology Diagnoses Severe aortic stenosis Procedures Transthoracic echocardiogram (TTE) complete with contrast, bubble, strain, and 3D PRN AL ECHO TTHRC R-T 2D W/WOM-MODE COMPL SPEC&COLR D AL TTE W OR WO FOL WCON,DOPPLER Marietta Banuelos, PROVIDER SCRIBE - [employer] [address] [place] [address] Phone: tel: fax: Referral ID Status Reason Start Date Expiration Date Visits Re quested Visits Authorized [id number] Closed 04/27/2024 04/27/2025 1 1 [facility] Chief Complaint and Reason for Visit Chief Complaint INT LABS Chief Complaint INT LABS COLONOSCOPY 6 m fu Atherosclerotic heart disease of [place] coronary a Reason for Visit Bilateral carotid ar [place] stenosis Chronic heartburn Colon polyps Presence of stent in coronary artery Bilateral carotid artery stenosis HLD (hyperlipidemia) Nonrheumatic aortic (valve) stenosis Preoperative cardiovascular examination Renal artery stenosis Atherosclerotic heart disease of [place] coronary artery without angina pectoris Benign essential hypertension Bilateral carotid bruits Presence of stent in coronary artery Chief Complaint 6 m fu EORDER Reason for Visit Bilateral carotid [place] stenosis HLD (hyperlipidemia) Nonrheumatic aortic (valve) stenosis Renal artery stenosis Atherosclerotic heart disease of [place] coronary artery without angina pectoris Benign essential hypertension Presence of stent in coronary artery Chief Complaint 6 m fu EORDER EORDER Reason for Visit Bilateral carotid [place] stenosis HLD (hyperlipidemia) Nonrheumatic aortic (valve) stenosis Renal artery stenosis Atherosclerotic heart disease of [place] coronary artery without angina pectoris Benign essential hypertension Presence of stent in coronary artery Chief Complaint EORDER Chief Complaint 6 M FU Atherosclerotic heart disease of [place] coronary a Reason for Visit Bilateral carotid [place] stenosis HLD (hyperlipidemia) Nonrheumatic aortic (valve) stenosis Renal artery stenosis Atherosclerotic heart disease of [place] coronary artery without angina pectoris Benign essential hypertension Chief Complaint 6 M FU Atherosclerotic heart disease of [place] coronary a CP, SOB, LEXISCAN Reason for Visit Bilateral carotid [place] stenosis HLD (hyperlipidemia) Nonrheumatic aortic (valve) stenosis Renal artery stenosis Atherosclerotic heart disease of [place] coronary artery without angina pectoris Benign essential hypertension Chief Complaint 6 M FU Atherosclerotic heart disease of [place] coronary a CP, SOB, LEXISCAN CP, SOB, LEXISCAN LUMBAR SPINE Room 3 Radiculopathy, lumbar region LUMBAR SPINE Reason for Visit Bilateral carotid [place] stenosis HLD (hyperlipidemia) Nonrheumatic aortic (valve) stenosis Renal artery stenosis Atherosclerotic heart disease of [place] coronary artery without angina pectoris Benign essential hypertension Lumbar radiculopathy S/P lumbar fusion Cervical myelopathy Lumbar radiculopathy S/P lumbar fusion Chief Complaint 6 M FU Atherosclerotic heart disease of [place] coronary a CP, SOB, LEXISCAN CP, SOB, LEXISCAN LUMBAR SPINE Room 3 Radiculopathy, lumbar region LUMBAR SPINE CREVICAL MYELOPATHY LUMBAR SPINE Reason for Visit Bilateral carotid [place] stenosis HLD (hyperlipidemia) Nonrheumatic aortic (valve) stenosis Renal artery stenosis Atherosclerotic heart disease of [place] coronary artery without angina pectoris Benign essential hypertension Lumbar radiculopathy S/P lumbar fusion Cervical myelopathy Lumbar radiculopathy S/P lumbar fusion Lumbar radiculopathy S/P lumbar fusion Chief Complaint CP, SOB, LEXISCAN CP, SOB, LEXISCAN LUMBAR SPINE Room 3 Radiculopathy, lumbar region LUMBAR SPINE CREVICAL MYELOPATHY LUMBAR SPINE 3 m fu / PREV AR PT PT REQ SWITCH Re-establish/ COPD PREOP CHRONIC OBSTRUCTIVE PULMONARY DISEASE lumbar spine CHRONIC OBSTRUCTIVE PULMONARY DISEASE OBSTRUCTIVE SLEEP APNEA Reason for Visit Lumbar radiculopathy S/P lumbar fusion Cervical myelopathy Lumbar radiculopathy S/P lumbar fusion Lumbar radiculopathy S/P lumbar fusion Nonrheumatic aortic (valve) stenosis Atherosclerotic heart disease of [place] coronary artery without angina pectoris Presence of stent in coronary artery Chronic lower back pain Chronic obstructive lung disease Obstructive sleep apnea Lumbar radiculopathy S/P lumbar fusion Chief Complaint LUMBAR SPINE Room 3 Radiculopathy, lumbar region LUMBAR SPINE CREVICAL MYELOPATHY LUMBAR SPINE 3 m fu / PREV AR PT PT REQ SWITCH Re-establish/ COPD PREOP CHRONIC OBSTRUCTIVE PULMONARY DISEASE lumbar spine CHRONIC OBSTRUCTIVE PULMONARY DISEASE OBSTRUCTIVE SLEEP APNEA HEATHER,BIPAP ERAS L3-4 and L5-S1 anterior and po ERAS L3-4 and L5-S1 anterior and po ERAS L3-4 and L5-S1 anterior and po ERAS L3-4 and L5-S1 anterior and po ERAS L3-4 and L5-S1 anterior and po Reason for Visit Lumbar radiculopathy S/P lumbar fusion Cervical myelopathy Lumbar radiculopathy S/P lumbar fusion Lumbar radiculopathy S/P lumbar fusion Nonrheumatic aortic (valve) stenosis Atherosclerotic heart disease of [place] coronary artery without angina pectoris Presence of stent in coronary artery Chronic lower back pain Chronic obstructive lung disease Obstructive sleep apnea Lumbar radiculopathy S/P lumbar fusion S/P lumbar fusion Atherosclerotic heart disease of [place] coronary artery without angina pectoris Benign essential hypertension Chronic obstructive lung disease Obstructive sleep apnea Chief Complaint Admit Date VALVE ISSUES/ OK PER Amalia SLOAN March 012023 10:44am 3 M GEOVANNI March 08, 2024 7:44am F17.210 - Nicotine dependence, cigarette s, uncompl March 10, 2024 7:55am F17.210 - Nicotine dependence, cigarette s, uncompl March 12, 2024 12:15pm F17.210 - Nicotine dependence, cigarette s, uncompl March 15, 2024 11:02am SMOKER March 25, 2024 8: 12am BILAT BRUITS March 30, 2024 7: 49am 1 M FU April 13, 2024 8 :39am Amb Documentation April 13, 2024 2 :58pm Amb Documentation April 13, 2024 3 :06pm 1 Y FU May 20, 2024 9:49am Heart Valve Replacement June 01, 2024 9:53am 8 WK FU June 09, 2024 8:3 4am TAVR June 11, 2024 10: 15am Reason for Visit Admit Date Bilateral carotid artery stenosis Dece er 2023 10:44am HLD (hyperlipidemia) March 01, 2024 10:44am Atherosclerotic heart diseas e of [place] coronary artery without angina pectoris March 01, 2024 10:44am Hypertension March 01, 2024 1 0:44am Nonrheumatic aortic (valve) stenosis Dec ember 2023 10:44am Shortness of breath on exertion March 01, 2024 10:44am Nonrheumatic aortic (valve) stenosis Dec ember 2023 7:44am Obstructive sleep apnea March 08, 024 7:44am Shortness of breath on exertion March 08, 2024 7:44am Smoking greater than 20 pack years Dece lissette 2023 7:44am Oral candidiasis April 13, 2024 8 :39am Pulmonary fibrosis April 13, 2024 8 :39am Chronic obstructive lung disease April 13, 2024 8:39am Nonrheumatic aortic (valve) stenosis [place] ry 2024 8:39am Obstructive sleep apnea April 13 8:39am Shortness of breath on exertion April 13, 2024 8:39am Smoking greater than 20 pack years Marua 2024 8:39am Bilateral carotid artery stenosis [facility] ry 2024 9:49am History of transcatheter aortic valve re placement (TAVR) May 20, 2024 9:49am HLD (hyperlipidemia) May 20, 2024 9:49am Atherosclerotic heart diseas e of [place] coronary artery without angina pectoris May 20, 2024 9:49am Hypertension May 20, 2024 9:49am Pulmonary fibrosis June 09, 2024 8:3 4am Chronic obstructive lung disease May 222024 8:34am Obstructive sleep apnea June 09, 2024 8:34am Shortness of breath on exertion June 092024 8:34am Smoking greater than 20 pack years June 09, 2024 8:34am Chief Complaint Admit Date VALVE ISSUES/ OK PER M. LUTHER March 012023 10:44am 3 M FU March 08, 2024 7:44am F17.210 - Nicotine dependence, cigarette s, uncompl March 10, 2024 7:55am F17.210 - Nicotine dependence, cigarette s, uncompl March 12, 2024 12:15pm F17.210 - Nicotine dependence, cigarette s, uncompl March 15, 2024 11:02am SMOKER March 25, 2024 8: 12am BILAT BRUITS March 30, 2024 7: 49am 1 M FU April 13, 2024 8 :39am Amb Documentation April 13, 2024 2 :58pm Amb Documentation April 13, 2024 3 :06pm 1 Y FU May 20, 2024 9:49am Heart Valve Replacement June 01, 2024 9:53am 8 WK FU June 09, 2024 8:3 4am TAVR June 14, 2024 10: 15am Chief Complaint Admit Date VALVE ISSUES/ OK PER M. LUTHER March 012023 10:44am 3 M FU March 08, 2024 7:44am F17.210 - Nicotine dependence, cigarette s, uncompl March 10, 2024 7:55am F17.210 - Nicotine dependence, cigarette s, uncompl March 12, 2024 12:15pm F17.210 - Nicotine dependence, cigarette s, uncompl March 15, 2024 11:02am SMOKER March 25, 2024 8: 12am BILAT BRUITS March 30, 2024 7: 49am 1 M FU April 13, 2024 8 :39am Amb Documentation April 13, 2024 2 :58pm Amb Documentation April 13, 2024 3 :06pm 1 Y FU May 20, 2024 9:49am Heart Valve Replacement June 01, 2024 9:53am 8 WK FU June 09, 2024 8:3 4am TAVR June 21, 2024 10: 15am Chief Complaint Admit Date 1 Y May 20, 2024 9:49am Heart Valve Replacement June 01, 2024 9:53am 8 WK FU June 09, 2024 8:3 4am TAVR June 21, 2024 10: 15am TAVR July 09, 2024 10: 15am TAVR July 23, 2024 8:01am LUMBAR SPINE July 29, 2024 10:40a m room 4 July 29, 2024 11:14a m EORDER August 13, 2024 7:49a m Reason for Visit Admit Date Bilateral carotid artery stenosis Februa 2024 9:49am History of transcatheter aortic valve re placement (TAVR) May 20, 2024 9:49am HLD (hyperlipidemia) May 20, 2024 9:49am Atherosclerotic heart diseas e of [place] coronary artery without angina pectoris May 20, 2024 9:49am Hypertension May 20, 2024 9:49am Pulmonary fibrosis June 09, 2024 8:3 4am Chronic obstructive lung disease May 222024 8:34am Obstructive sleep apnea June 09, 2024 8:34am Shortness of breath on exertion June 092024 8:34am Smoking greater than 20 pack years June 09, 2024 8:34am Lumbar radiculopathy July 29, 2024 10:40 am S/P lumbar fusion July 29, 2024 10:40a m Chief Complaint Admit Date 1 Y May 20, 2024 9:49am Heart Valve Replacement June 01, 2024 9:53am 8 WK June 09, 2024 8:3 4am TAVR June 21, 2024 10: 15am TAVR July 09, 2024 10: 15am TAVR July 23, 2024 8:01am LUMBAR SPINE July 29, 2024 10:40a m room 4 July 29, 2024 11:14a m EORDER August 13, 2024 7:49a m 3 M FU September 03, 2024 9:44 am Chief Complaint Admit Date 1 Y May 20, 2024 9:49am Heart Valve Replacement June 01, 2024 9:53am 8 WK FU June 09, 2024 8:3 4am TAVR June 21, 2024 10: 15am TAVR July 09, 2024 10: 15am TAVR July 23, 2024 8:01am LUMBAR SPINE July 29, 2024 10:40a m room 4 July 29, 2024 11:14a m EORDER August 13, 2024 7:49a m 3 M September 03, 2024 9:44 am 3 M September 08, 2024 8:32 am Reason for Visit Admit Date Bilateral carotid artery stenosis Februa 2024 9:49am History of transcatheter aortic valve re placement (TAVR) May 20, 2024 9:49am HLD (hyperlipidemia) May 20, 2024 9:49am Atherosclerotic heart diseas e of [place] coronary artery without angina pectoris May 20, 2024 9:49am Hypertension May 20, 2024 9:49am Pulmonary fibrosis June 09, 2024 8:3 4am Chronic obstructive lung disease May 222024 8:34am Obstructive sleep apnea June 09, 2024 8:34am Shortness of breath on exertion June 092024 8:34am Smoking greater than 20 pack years June 09, 2024 8:34am Lumbar radiculopathy July 29, 2024 10:40 am S/P lumbar fusion July 29, 2024 10:40a m Bilateral carotid artery stenosis August 222024 9:44am History of transcatheter aortic valve re placement (TAVR) September 03, 2024 9:44am HLD (hyperlipidemia) September 03, 2024 9:4 4am Pulmonary fibrosis September 03, 2024 9:44 am Atherosclerotic heart diseas e of [place] coronary artery without angina pectoris September 03, 2024 9:44am Hypertension September 03, 2024 9:44 am Pulmonary fibrosis September 08, 2024 8:32 am Chronic obstructive lung disease September 082024 8:32am Obstructive sleep apnea September 08, 2024 8:32am Shortness of breath on exertion August 8:32am Smoking greater than 20 pack years September 08, 2024 8:32am Chief Complaint Admit Date 1 Y May 20, 2024 9:49am Heart Valve Replacement June 01, 2024 9:53am 8 WK FU June 09, 2024 8:3 4am TAVR June 21, 2024 10: 15am TAVR July 09, 2024 10: 15am TAVR July 23, 2024 8:01am LUMBAR SPINE July 29, 2024 10:40a m room 4 July 29, 2024 11:14a m EORDER August 13, 2024 7:49a m 3 M FU September 03, 2024 9:44 am 3 M FU September 08, 2024 8:32 am NO ORDERS September 13, 2024 9:50 am J84.10 - Pulmonary fibrosis, unspecified September 16, 2024 8:11am Family History Relationship Condition Age at Onset Recorded Date/T miladis brother Malignant neoplasm of tonsil Unknown Malignant neoplasm Unknown Diabetes mellitus Unknown sister Malignant neoplasm of breast Unknown mother Diabetes mellitus Unknown Hypertension Unknown Coronary artery disease Unknown Myocardial infarction Unknown brother Coronary artery disease Unknown Cardiomyopathy Unknown father Malignant neoplasm Unknown Advance Directives Advance Directive Response Recorded Date/ Time Advance Directives No November 03, 2014 2:28am Living Will No September 26, 2017 8 :48pm Power of Log Preparer No September 26, 2017 8:48pm Advance Directive Response Recorded Date/ Time Advance Directives No November 03, 2014 2:28am Living Will No October 16, 2021 8:38am Power of Log Preparer No October 16 8:38am Advance Directive Response Recorded Date/ Time Advance Directives No November 03, 2014 1:28am Living Will No October 16, 2021 7:38am Power of Log Preparer No October 16 7:38am Advance Directive Response Recorded Date/ Time Advance Directives No November 03, 2014 1:28am Living Will Yes April 23 12:03pm Power of Log Preparer Yes April 23, 2023 12:03pm Advance Directive Response Recorded Date/ Time Name of Medical Power of Log Preparer ON FILE May 14, 2023 6:40pm Advance Directives No November 03, 2014 1:28am Living Will Yes May 14, 2 024 6:40pm Power of Log Preparer Yes May 14, 2023 6:40pm Date Activated Date Inactivated Comments 04/08/2024 7:57 AM 04/08/2024 2:59 PM Date Activated Date Inactivated Comments 04/08/2024 7:57 AM 04/08/2024 2:59 PM Date Activated Date Inactivated Comments 04/26/2024 5:38 AM 04/27/2024 3:24 PM Date Activated Date Inactivated Comments 04/08/2024 7:57 AM 04/08/2024 2:59 PM Date Activated Date Inactivated Comments 04/26/2024 5:38 AM 04/27/2024 3:24 PM Date Activated Date Inactivated Comments 04/08/2024 7:57 AM 04/08/2024 2:59 PM Advance Directive Response Recorded Date/ Time Living Will Yes May 14 7:40pm Do you have a Healthcare Power of Log Preparer? Yes May 14, 2023 7:40pm Advance Directives on File Yes June 01, 2024 10:22am Living Will Yes June 01, 2024 10:22am Do you have a Healthcare Power of Log Preparer? Yes June 01, 2024 10:22am Advance Directives No November 03, 2014 2:28am Advance Directive Response Recorded Date/ Time Advance Directives on File Yes June 01, 2024 10:22am Living Will Yes June 01, 2024 10:22am Do you have a Healthcare Power of Log Preparer? Yes June 01, 2024 10:22am Advance Directives No November 03, 2014 2:28am Summary Purpose Additional Source Comments Goals (unrecognized section and content) Goals may be documented in a n alternate sectionGoals may be documented in an alternate sectionGoals may be documented in an alternate sectionGoals may be documented in an alternate sectionGoals may be documented in an alternate sectionGoals may be documented in an alternate sectionGoals may be documented in an alternate sectionGoals may be documented in an alternate sectionGoals may be documented in an alternate sectionGoals may be documented in an alternate sectionGoals may be documented in an alternate sectionGoals may be documented in an alternate sectionGoals may be documented in an alternate sectionGoals may be documented in an alternate sectionGoals may be documented in an alternate sectionGoals may be documented in an alternate sectionGoals may be documented in an alternate sectionGoals may be documented in an alternate sectionGoals may be documented in an alternate section Care Teams (unrecognized sec tion and content) Team Status: Active Member Role Status Dates Dr. Beulah Catherine DO Family Provider Active Dr. Beulah Catherine DO Primary Care Provider Active Team Status: Inactive Member Role Status Dates Dr. Beulah Catherine DO Primary Care Provider, Referring P rovider Active Dr. Grey Harry MD Attending Provider Active Team Status: Inactive Member Role Status Dates Dr. Beulah Catherine DO Primary Care Provider Active Dr. Grey Harry MD Attending Provider, Referring Provider Active Team Status: Inactive Member Role Status Dates Dr. Beulah Catherine DO Primary Care Provide r, Attending Provider, Referring Provider Active Team Status: Inactive Member Role Status Dates Dr. Beulah Catherine DO Primary Care Provider, Referring P rovider Active Almaz Evans PA, PA Attending Provider Active Team Status: Active Member Role Status Dates Dr. Beulah Catherine DO Primary Care Provider Active Dr. May Kraft MD Attending Provider Active Team Status: Inactive Member Role Status Dates Dr. Beulah Catherine DO Primary Care Provider Active Almaz Evans PA, PA Attending Provider, Referr ing Provider Active Team Status: Active Member Role Status Dates Dr. Beulah Catherine DO Primary Care Provider Active Dr. May Kraft MD Attending Provider Active Almaz Evans PA, PA Referring Provider Active Team Status: Active Member Role Status Dates Dr. Beulah Catherine DO Primary Care Provider Active Almaz STEVENS, PA Referring Provider, Other Provider Active Dr. May Kraft MD Attending Provider Active Team Status: Inactive Member Role Status Dates Dr. Beulah Catherine DO Primary Care Provider, Referring P rovider Active Dr. Amarjit Irving MD Attending Provider Active Team Status: Inactive Member Role Status Dates Dr. Beulah Catherine DO Primary Care Provider Active Dr. Andrew Green MD Attending Provider Active Team Status: Inactive Member Role Status Dates Dr. Beulah Catherine DO Primary Care Provider Active Dr. Amarjit Irving MD Attending Provider, Referring Pr ovider Active Team Status: Inactive Member Role Status Dates Dr. Beulah Catherine DO Primary Care Provider, Referring P rovider Active Dr. Bernard Bullock MD Attending Provider Active Team Status: Inactive Member Role Status Dates Dr. Beulah Catherine DO Primary Care Provider, Referring P rovider Active Dr. Mauro Powers MD Attending Provider Active Team Status: Active Member Role Status Dates Dr. Beulah Catherine DO Primary Care Provider Active Dr. Mauro Powers MD Attending Provider, Other Provid er Active Team Status: Active Member Role Status Dates Dr. Beulah Catherine DO Primary Care Provider Active Dr. Bernard Bullock MD Attending Provider Active Dr. Amarjit Irving MD Referring Provider Active Team Status: Active Member Role Status Dates Dr. Beulah Catherine DO Primary Care Provider Active Dr. Mauro Powers MD Attending Provider, Referring Pr ovider Active Team Status: Active Member Role Status Dates Dr. Beulah Catherine DO Primary Care Provider, Attending P rovider Active Team Status: Inactive Member Role Status Dates Dr. Beulah Catherine DO Primary Care Provider Active Dr. Mauro Powers MD Attending Provider Active Team Status: Inactive Member Role Status Dates Dr. Beulah Catherine DO Primary Care Provider Active Dr. Mauro Powers MD Attending Provider, Referring Pr ovider Active Team Status: Inactive Member Role Status Dates Dr. Beulah Catherine DO Primary Care Provider, Attending P rovider Active Team Status: Active Member Role Status Dates Dr. Beulah Catherine DO Primary Care Provider Active Dr. Mauro Powers MD Attending Provider , Referring Provider, Other Provider Active Team Status: Active Member Role Status Dates Dr. Beulah Catherine DO Primary Care Provider Active Dr. Amarjit Irving MD Admit Provider, At tending Provider, Referring Provider, Other Provider Active Team Status: Active Member Role Status Dates Dr. Beulah Catherine DO Primary Care Provider Active Dr. Amarjit Irving MD Admit Provider, Re ferring Provider, Other Provider Active Dr. Grecia Christian MD Other Provider Active Dr. Eleazar Milligan , DO Other Provider Active Dr. Silvana Martinez MD Other Provider Active Dr. Silvana Nino MD Other Provider Active Dr. Dolores Bobo MD Other Provider Active Dr. Marion Man MD Other Provider Active Dr. Justine Rios , DO Other Provider Active Dr. Kristofer Gonzalez , DO Other Provider Active Dr. Kristofer De Anda MD Other Provider Active Aniket Peck MD Other Provider Active Dr. Bj Aviles , DO Other Provider Active Dr. Robles Kebede MD Other Provider Active Dr. Frank Hinojosa MD Other Provider Active Dr. Mauro Culp MD Other Provider Active Dr. Clarence Lockwood , DO Other Provider Active Dr. Celina Francis , DO Other Provider Active Dr. Angelito Teran , DO Other Provider Active Dr. Monie Babb MD Other Provider Active Dr. Roland Cruz MD Other Provider Active Dr. Mau Tejeda MD Other Provider Active Dr. Grey Tong MD Other Provider Active Dr. Raiza Evans MD Attending Provider, Other Provid er Active Dr. Chinmay Fuentes MD Other Provider Active Meryl Machuca STONE DRILLER, STONE DRILLER-C Other Provider Active Monroe STEVENS Other Provider Active Team Status: Active Member Role Status Dates Dr. Beulah Catherine , DO Primary Care Provider Active Dr. Amarjit Irving MD Admit Provider, At tending Provider, Referring Provider, Other Provider Active Dr. Grecia Christian MD Other Provider Active Dr. Eleazar Milligan , DO Other Provider Active Dr. Silvana Martinez MD Other Provider Active Dr. Silvana Nino MD Other Provider Active Dr. Dolores Bobo MD Other Provider Active Dr. Marion Man MD Other Provider Active Dr. Justine Rios , DO Other Provider Active Dr. Kristofer Gonzalez , DO Other Provider Active Dr. Kristofer De Anda MD Other Provider Active Aniket Peck MD Other Provider Active Dr. Bj Aviles , DO Other Provider Active Dr. Robles Kebede MD Other Provider Active Dr. Frank Hinojosa MD Other Provider Active Dr. Mauro Culp MD Other Provider Active Dr. Clarence Lockwood , DO Other Provider Active Dr. Celina Francis , DO Other Provider Active Dr. Angelito Teran , DO Other Provider Active Dr. Monie Babb MD Other Provider Active Dr. Roland Cruz MD Other Provider Active Dr. Mau Tejeda MD Other Provider Active Dr. Grey Tong MD Other Provider Active Dr. Raiza Evans MD Other Provider Active Dr. Chinmay Fuentes MD Other Provider Active Meryl Machuca NP, STONE DRILLER-C Other Provider Active Monroe STEVENS Other Provider Active Team Status: Active Member Role Status Dates Dr. Beulah Catherine , DO Primary Care Provider Active Dr. Amarjit Irving MD Admit Provider, Re ferring Provider, Other Provider Active Dr. Grecia Christian MD Other Provider Active Dr. Eleazar Milligan , DO Other Provider Active Dr. Silvana Martinez MD Other Provider Active Dr. Silvana Nino MD Other Provider Active Dr. Dolores Bobo MD Other Provider Active Dr. Marion Man MD Other Provider Active Dr. Justine Rios , DO Other Provider Active Dr. Kristofer Gonzalez , DO Other Provider Active Dr. Kristofer De Anda MD Other Provider Active Aniket Peck MD Other Provider Active Dr. Bj Aviles , DO Other Provider Active Dr. Robles Kebede MD Other Provider Active Dr. Frank Hinojosa MD Other Provider Active Dr. Mauro Culp MD Other Provider Active Dr. Clarence Lockwood , DO Other Provider Active Dr. Celina Francis , DO Other Provider Active Dr. Angelito Teran , DO Other Provider Active Dr. Monie Babb MD Other Provider Active Dr. Roland Cruz MD Attending Provider, Other Provider Active Dr. Mau Tejeda MD Other Provider Active Dr. Grey Tong MD Other Provider Active Dr. Raiza Evans MD Other Provider Active Dr. Chinmay Fuentes MD Other Provider Active Meryl Machuca STONE DRILLER, STONE DRILLER-C Other Provider Active Monroe STEVENS Other Provider Active Team Status: Inactive Member Role Status Dates Dr. Beulah Catherine , DO Primary Care Provider Active Dr. Amarjit Irving MD Admit Provider, At tending Provider, Referring Provider Active Dr. Grecia Christian MD Other Provider Active Dr. Eleazar Milligan , DO Other Provider Active Dr. Silvana Martinez MD Other Provider Active Dr. Silvana Nino MD Other Provider Active Dr. Dolores Bobo MD Other Provider Active Dr. Marion Man MD Other Provider Active Dr. Justine Rios , DO Other Provider Active Dr. Kristofer Gonzalez , DO Other Provider Active Dr. Kristofer De Anda MD Other Provider Active Aniket Peck MD Other Provider Active Dr. Bj Aviles , DO Other Provider Active Dr. Robles Kebede MD Other Provider Active Dr. Frank Hinojosa MD Other Provider Active Dr. Mauro Culp MD Other Provider Active Dr. Clarence Lockwood , DO Other Provider Active Dr. Celina Francis , DO Other Provider Active Dr. Angelito Teran , DO Other Provider Active Dr. Monie Babb MD Other Provider Active Dr. Roland Cruz MD Other Provider Active Dr. Mau Tejeda MD Other Provider Active Dr. Grey Tong MD Other Provider Active Dr. Raiza Evans MD Other Provider Active Dr. Chinmay Fuentes MD Other Provider Active Meryl Machuca STONE DRILLER, STONE DRILLER-C Other Provider Active Monroe STEVENS Other Provider Active Team Status: Active Member Role Status Dates Dr. Beulah Catherine , DO Primary Care Provider Active Dr. Mauro Powers MD Attending Provider Active Glass Blower Helper Relationship Specialty Start Date End Date Beulah Catherine [address] [place] [place] [phone] PCP - General Family Medicine 04/20/24 Glass Blower Helper Relationship Specialty Start Date End Date Beulah Catherine [address] [place] [phone] PCP - General Family Medicine 04/20/24 Glass Blower Helper Relationship Specialty Start Date End Date Beulah Catherine [address] [place] [phone] PCP - General Family Medicine 04/20/24 Glass Blower Helper Relationship Specialty Start Date End Date Beulah Catherine [address] [place] [phone] PCP - General Family Medicine 04/20/24 Glass Blower Helper Relationship Specialty Start Date End Date Beulah Catherine [address] [place] [phone] PCP - General Family Medicine 04/20/24 Glass Blower Helper Relationship Specialty Start Date End Date Beulah Catherine [address] [place] [phone] PCP - General Family Medicine 04/20/24 Glass Blower Helper Relationship Specialty Start Date End Date Beulah Catherine [address] [place] [phone] PCP - General Family Medicine 04/20/24 Glass Blower Helper Relationship Specialty Start Date End Date Beulah Catherine [address] [place] [phone] PCP - General Family Medicine 04/20/24 Glass Blower Helper Relationship Specialty Start Date End Date Beulah Catherine [address] [place] [phone] PCP - General Family Medicine 04/20/24 Team Status: Active Member Role Status Dates Dr. Beulah Catherine DO Primary Care Provider Active Team Status: Inactive Member Role Status Dates Dr. Beulah Catherine DO Primary Care Provider Active Start: March 01, 2024 End: March 01, 2024 Dr. Beulah Catherine DO Referring Provider Active St art: March 01, 2024 End: March 01, 2024 Dr. Bernard Bullock MD Attending Provider Active Start: March 01, 2024 End: March 01, 2024 Team Status: Inactive Member Role Status Dates Dr. Beulah Catherine DO Primary Care Provider Active Start: March 08, 2024 End: March 08, 2024 Dr. Beulah Catherine DO Referring Provider Active St art: March 08, 2024 End: March 08, 2024 Honey Monge STONE DRILLER, STONE DRILLER-C Attending Provider Active Start: March 08, 2024 End: March 08, 2024 Team Status: Inactive Member Role Status Dates Dr. Beulah Catherine DO Primary Care Provider Active Start: March 10, 2024 End: March 10, 2024 Honey Monge STONE DRILLER, STONE DRILLER-C Attending Provider Active Start: March 10, 2024 End: March 10, 2024 Honey Monge STONE DRILLER, STONE DRILLER-C Referring Provider Active Start: March 10, 2024 End: March 10, 2024 Team Status: Inactive Member Role Status Dates Dr. Beulah Catherine DO Primary Care Provider Active Start: March 12, 2024 End: March 12, 2024 Honey Monge STONE DRILLER, STONE DRILLER-C Attending Provider Active Start: March 12, 2024 End: March 12, 2024 Honey Monge STONE DRILLER, STONE DRILLER-C Referring Provider Active Start: March 12, 2024 End: March 12, 2024 Team Status: Active Member Role Status Dates Dr. Beulah Catherine DO Primary Care Provider Active Start: March 15, 2024 Honey Monge STONE DRILLER, STONE DRILLER-C Referring Provider Active Start: March 15, 2024 Honey Monge STONE DRILLER, STONE DRILLER-C Other Provider Active Start: March 15, 2024 Dr. Manuel Dominguez DO Attending Provider Active S tart: March 15, 2024 Team Status: Inactive Member Role Status Dates Dr. Beulah Catherine DO Primary Care Provider Active Start: March 25, 2024 End: March 25, 2024 Honey Monge STONE DRILLER, STONE DRILLER-C Attending Provider Active Start: March 25, 2024 End: March 25, 2024 Honey Monge STONE DRILLER, STONE DRILLER-C Referring Provider Active Start: March 25, 2024 End: March 25, 2024 Team Status: Inactive Member Role Status Dates Dr. Beulah Catherine DO Primary Care Provider Active Start: March 30, 2024 End: March 30, 2024 Dr. Bernard Bullock MD Attending Provider Active Start: March 30, 2024 End: March 30, 2024 Dr. Bernard Bullock MD Referring Provider Active Start: March 30, 2024 End: March 30, 2024 Team Status: Active Member Role Status Dates Dr. Beulah Catherine DO Primary Care Provider Active Start: March 30, 2024 Dr. Bj Hayden MD Attending Provider Active S tart: March 30, 2024 Dr. Bernard Bullock MD Referring Provider Active Start: March 30, 2024 Team Status: Inactive Member Role Status Dates PREETI ROSENTHAL Attending Provider Active St art: March 31, 2024 End: March 31, 2024 PREETI ROSENTHAL Referring Provider Active St art: March 31, 2024 End: March 31, 2024 Dr. Beulah Cathernie DO Primary Care Provider Active Start: March 31, 2024 End: March 31, 2024 Team Status: Inactive Member Role Status Dates Dr. Beulah Catherine DO Primary Care Provider Active Start: April 13, 2024 End: April 13, 2024 Dr. Beulah Catherine DO Referring Provider Active St art: April 13, 2024 End: April 13, 2024 KIMBER Breaux Attending Provider Active Start: April 13, 2024 End: April 13, 2024 Team Status: Inactive Member Role Status Dates Dr. Beulah Catherine DO Primary Care Provider Active Start: April 13, 2024 End: April 13, 2024 KIBMER DAVILA Attending Provider Active Sta rt: April 13, 2024 End: April 13, 2024 KIMBER DAVILA Referring Provider Active Sta rt: April 13, 2024 End: April 13, 2024 KIMBER Breaux Other Provider Active St art: April 13, 2024 End: April 13, 2024 Team Status: Active Member Role Status Dates Dr. Beulah Catherine DO Primary Care Provider Active Start: April 13, 2024 Christiana Sloan RN Attending Provider Active Sta rt: April 13, 2024 Team Status: Inactive Member Role Status Dates Dr. Beulah Catherine DO Primary Care Provider Active Start: May 20, 2024 End: May 20, 2024 Dr. Beulah Catherine DO Referring Provider Active St art: May 20, 2024 End: May 20, 2024 Almaz Evans PA, PA Attending Provider Active Start: May 20, 2024 End: May 20, 2024 Team Status: Inactive Member Role Status Dates Dr. Beulah Catherine DO Primary Care Provider Active Start: June 01, 2024 End: June 01, 2024 Dr. Bernard Bullock MD Attending Provider Active Start: June 01, 2024 End: June 01, 2024 Dr. Bernard Bullock MD Referring Provider Active Start: June 01, 2024 End: June 01, 2024 Team Status: Active Member Role Status Dates Dr. Beulah Catherine DO Primary Care Provider Active Start: June 04, 2024 KIMBER DAVILA Attending Provider Active Sta rt: June 04, 2024 KIMBER DAVILA Referring Provider Active Sta rt: June 04, 2024 Team Status: Inactive Member Role Status Dates Dr. Beulah Catherine DO Primary Care Provider Active Start: June 09, 2024 End: June 09, 2024 Dr. Beulah Catherine DO Referring Provider Active St art: June 09, 2024 End: June 09, 2024 KIMBER Breaux Attending Provider Active Start: June 09, 2024 End: June 09, 2024 Team Status: Active Member Role Status Dates Dr. Beulah Catherine DO Primary Care Provider Active Start: June 11, 2024 Dr. Bernard Bullock MD Attending Provider Active Start: June 11, 2024 Dr. Bernard Bullock MD Referring Provider Active Start: June 11, 2024 Team Status: Inactive Member Role Status Dates Dr. Beulah Catherine DO Primary Care Provider Active Start: June 04, 2024 End: June 04, 2024 KIMBER DAVILA Attending Provider Active Sta rt: June 04, 2024 End: June 04, 2024 KIMBER DAVILA Referring Provider Active Sta rt: June 04, 2024 End: June 04, 2024 Team Status: Active Member Role Status Dates Dr. Beulah Catherine DO Primary Care Provider Active Start: June 14, 2024 Dr. Bernard Bullock MD Attending Provider Active Start: June 14, 2024 Dr. Bernard Bullock MD Referring Provider Active Start: June 14, 2024 Team Status: Inactive Member Role Status Dates Dr. Beulah Catherine DO Primary Care Provider Active Start: June 21, 2024 End: June 21, 2024 Dr. Bernard Bullock MD Attending Provider Active Start: June 21, 2024 End: June 21, 2024 Dr. Bernard Bullock MD Referring Provider Active Start: June 21, 2024 End: June 21, 2024 Team Status: Inactive Member Role Status Dates Dr. Beulah Catherine DO Primary Care Provider Active Start: July 08, 2024 End: July 08, 2024 SYLVIE OSMAN MD Attending Provider Active St art: July 08, 2024 End: July 08, 2024 SYLVIE OSMAN MD Referring Provider Active St art: July 08, 2024 End: July 08, 2024 Team Status: Inactive Member Role Status Dates Dr. Beulah Catherine DO Primary Care Provider Active Start: July 09, 2024 End: July 21, 2024 Dr. Bernard Bullock MD Attending Provider Active Start: July 09, 2024 End: July 21, 2024 Dr. Bernard Bullock MD Referring Provider Active Start: July 09, 2024 End: July 21, 2024 Team Status: Active Member Role Status Dates Dr. Beulah Catherine DO Primary Care Provider Active Start: July 23, 2024 Dr. Bernard Bullock MD Attending Provider Active Start: July 23, 2024 Dr. Bernard Bullock MD Referring Provider Active Start: July 23, 2024 Team Status: Inactive Member Role Status Dates Dr. Beulah Catherine DO Primary Care Provider Active Start: July 29, 2024 End: July 29, 2024 Dr. Beulah Catherine DO Referring Provider Active St art: July 29, 2024 End: July 29, 2024 Dr. Amarjit Irving MD Attending Provider Active Start: July 29, 2024 End: July 29, 2024 Team Status: Inactive Member Role Status Dates Dr. Beulah Catherine DO Primary Care Provider Active Start: July 29, 2024 End: July 29, 2024 Dr. Andrew Green MD Attending Provider Active S tart: July 29, 2024 End: July 29, 2024 Team Status: Inactive Member Role Status Dates Dr. Beulah Catherine DO Primary Care Provider Active Start: August 13, 2024 End: August 13, 2024 KIMBER Breaux Attending Provider Active Start: August 13, 2024 End: August 13, 2024 KIMBER Breaux Referring Provider Active Start: August 13, 2024 End: August 13, 2024 Team Status: Inactive Member Role Status Dates Dr. Beulah Catherine DO Primary Care Provider Active Start: July 23, 2024 End: August 21, 2024 Dr. Bernard Bullock MD Attending Provider Active Start: July 23, 2024 End: August 21, 2024 Dr. Bernard Bullock MD Referring Provider Active Start: July 23, 2024 End: August 21, 2024 Team Status: Inactive Member Role Status Dates Dr. Beulah Catherine DO Primary Care Provider Active Start: September 03, 2024 End: September 03, 2024 Dr. Beulah Catherine DO Referring Provider Active St art: September 03, 2024 End: September 03, 2024 Dr. Bernard Bullock MD Attending Provider Active Start: September 03, 2024 End: September 03, 2024 Team Status: Inactive Member Role Status Dates Dr. Beulah Catherine DO Primary Care Provider Active Start: September 08, 2024 End: September 08, 2024 Dr. Beulah Catherine DO Referring Provider Active St art: September 08, 2024 End: September 08, 2024 VIRAJ BreauxC Attending Provider Active Start: September 08, 2024 End: September 08, 2024 Team Status: Active Member Role/Relationship Status Dates Dr. Beulah Catherine DO Primary Care Provider Active Team Status: Inactive Member Role/Relationship Status Dates Dr. Beulah Catherine DO Primary Care Provider Active Start: May 20, 2024 End: May 20, 2024 Dr. Beulah Catherine DO Referring Provider Active St art: May 20, 2024 End: May 20, 2024 Almaz Evans PA, PA Attending Provider Active Start: May 20, 2024 End: May 20, 2024 Team Status: Inactive Member Role/Relationship Status Dates Dr. Beulah Catherine DO Primary Care Provider Active Start: June 01, 2024 End: June 01, 2024 Dr. Bernard Bullock MD Attending Provider Active Start: June 01, 2024 End: June 01, 2024 Dr. Bernard Bullock MD Referring Provider Active Start: June 01, 2024 End: June 01, 2024 Team Status: Inactive Member Role/Relationship Status Dates Dr. Beulah Catherine DO Primary Care Provider Active Start: June 04, 2024 End: June 04, 2024 KIMBER DAVILA Attending Provider Active Sta rt: June 04, 2024 End: June 04, 2024 KIMBER DAVILA Referring Provider Active Sta rt: June 04, 2024 End: June 04, 2024 Team Status: Inactive Member Role/Relationship Status Dates Dr. Beulah Catherine DO Primary Care Provider Active Start: June 09, 2024 End: June 09, 2024 Dr. Beulah Cathernie DO Referring Provider Active St art: June 09, 2024 End: June 09, 2024 KIMBER Breaux Attending Provider Active Start: June 09, 2024 End: June 09, 2024 Team Status: Inactive Member Role/Relationship Status Dates Dr. Beulah Catherine DO Primary Care Provider Active Start: June 21, 2024 End: June 21, 2024 Dr. Bernard Bullock MD Attending Provider Active Start: June 21, 2024 End: June 21, 2024 Dr. Bernard Bullock MD Referring Provider Active Start: June 21, 2024 End: June 21, 2024 Team Status: Inactive Member Role/Relationship Status Dates Dr. Beulah Catehrine DO Primary Care Provider Active Start: July 08, 2024 End: July 08, 2024 SYLVIE OSMAN MD Attending Provider Active St art: July 08, 2024 End: July 08, 2024 SYLVIE OSMAN MD Referring Provider Active St art: July 08, 2024 End: July 08, 2024 Team Status: Inactive Member Role/Relationship Status Dates Dr. Beulah Catherine DO Primary Care Provider Active Start: July 09, 2024 End: July 21, 2024 Dr. Bernard Bullock MD Attending Provider Active Start: July 09, 2024 End: July 21, 2024 Dr. Bernard Bullock MD Referring Provider Active Start: July 09, 2024 End: July 21, 2024 Team Status: Inactive Member Role/Relationship Status Dates Dr. Beulah Catherine DO Primary Care Provider Active Start: July 23, 2024 End: August 21, 2024 Dr. Bernard Bullock MD Attending Provider Active Start: July 23, 2024 End: August 21, 2024 Dr. Bernard Bullock MD Referring Provider Active Start: July 23, 2024 End: August 21, 2024 Team Status: Inactive Member Role/Relationship Status Dates Dr. Beulah Catherine DO Primary Care Provider Active Start: July 29, 2024 End: July 29, 2024 Dr. Beulah Catherine DO Referring Provider Active St art: July 29, 2024 End: July 29, 2024 Dr. Amarjit Irving MD Attending Provider Active Start: July 29, 2024 End: July 29, 2024 Team Status: Inactive Member Role/Relationship Status Dates Dr. Beulah Catherine DO Primary Care Provider Active Start: July 29, 2024 End: July 29, 2024 Dr. Andrew Green MD Attending Provider Active S tart: July 29, 2024 End: July 29, 2024 Team Status: Inactive Member Role/Relationship Status Dates Dr. Beulah Catherine DO Primary Care Provider Active Start: August 13, 2024 End: August 13, 2024 Marisel Burt NP-C Attending Provider Active Start: August 13, 2024 End: August 13, 2024 Marisel Burt NP-Susie Referring Provider Active Start: August 13, 2024 End: August 13, 2024 Team Status: Inactive Member Role/Relationship Status Dates Dr. Beulah Catherine DO Primary Care Provider Active Start: September 03, 2024 End: September 03, 2024 Dr. Beulah Catherine DO Referring Provider Active St art: September 03, 2024 End: September 03, 2024 Dr. Bernard Bullock MD Attending Provider Active Start: September 03, 2024 End: September 03, 2024 Team Status: Inactive Member Role/Relationship Status Dates Dr. Beulah Catherine DO Primary Care Provider Active Start: September 08, 2024 End: September 08, 2024 Dr. Beulah Catherine DO Referring Provider Active St art: September 08, 2024 End: September 08, 2024 Marisel Burt NP-C Attending Provider Active Start: September 08, 2024 End: September 08, 2024 Team Status: Inactive Member Role/Relationship Status Dates Dr. Beulah Catherine DO Primary Care Provider Active Start: September 13, 2024 End: September 13, 2024 Marisel Burt NP-C Attending Provider Active Start: September 13, 2024 End: September 13, 2024 Marisel Burt NP-Susie Referring Provider Active Start: September 13, 2024 End: September 13, 2024 Team Status: Active Member Role/Relationship Status Dates Dr. Beulah Catherine DO Primary Care Provider Active Start: September 16, 2024 Marisel Burt NP-C Attending Provider Active Start: September 16, 2024 Marisel Burt NP-C Referring Provider Active Start: September 16, 2024 Reason for Visit (unrecogniz ed section and content) Reason Comments Cardiac Valve Problem New Patient [facility] Reason Onset Date Comments Procedure 03/30/2024 L/RHC Reason Comments Hospital Follow-up S/p TAVR follow up Reason Comments 1 Month Follow Up S/p TAVR Scheduled Active and Recently Administ ered Medications (unrecognized section and content) Medication Order 04/06/2024 04/07/2024 04/08/2024 sodium chloride 0.9% (NS) flush 5-40 mL 5-40 mL, IntraVENous, Every 12 hours, First dose on Maria G 04/08/24 at 0800, Preprocedure, For Line Patency: Peripheral IV = 5 mL; Midline or Central Line = 10 mL/lumen. If following IV push medication, administer flush at same rate as the IV push. Flush volume is determined by type of infusion therapy being given. For non-viscous solutions use: Peripheral IV = 5 mL Midline or Central Line = 10 mL/lumen For viscous solutions (i.e. blood components, parenteral nutrition, contrast media, or after obtaining blood sample) use: Peripheral IV = 10 mL Midline or Central Line = 20 mL/lumen 0800 (Canceled Entry - Provider: Automatic Discharge Provider - Comment: Automatically canceled at discontinue of medication order) PRN Medication Order 04/06/2024 04/07/2024 04/08/2024 heparin injection (CANCELED) IntraVENous, As needed, Starting on Maria G 04/08/24 at 0928, Intraprocedure 0928 (Given - Provid er: Allen Pruett RN) iopamidol (Isovue-300) 61 % injection (CANCELED) As needed, Starting on Maria G 04/08/24 at 0948, Intraprocedure 0948 (Given - Provid er: Galo Koo MD) lidocaine (Xylocaine) 1 % injection (CANCELED) As needed, Starting on Maria G 04/08/24 at 0926, Intraprocedure 0926 (Given - Provid er: Luciano Zavala MD) NITROGLYCERIN 100 MCG / ML IN D5W VIAL FOR INTRA-OP/INTRAPROCEDURE USE (CANCELED) As needed, Starting on Maria G 04/08/24 at 0927, Intraprocedure 0927 (Given - Provid er: Luciano Zavala MD) sodium chloride 0.9% (NS) flush 5-40 mL 5-40 mL, IntraVENous, PRN, line care, After every IV line use, Starting on Maria G 04/08/24 at 0757, Preprocedure, For Line Patency: Peripheral IV = 5 mL; Midline or Central Line = 10 mL/lumen. If following IV push medication, administer flush at same rate as the IV push. Flush volume is determined by type of infusion therapy being given. For non-viscous solutions use: Peripheral IV = 5 mL Midline or Central Line = 10 mL/lumen For viscous solutions (i.e. blood components, parenteral nutrition, contrast media, or after obtaining blood sample) use: Peripheral IV = 10 mL Midline or Central Line = 20 mL/lumen verapamil (Isoptin) injection (CANCELED) As needed, Starting on Maria G 04/08/24 at 0927, Intraprocedure 09 (Given - Provid er: Luciano Zavala MD) Scheduled Medication Order 04/25/2024 04/26/2024 04/27/2024 amLODIPine (Norvasc) tablet 5 mg 5 mg, Oral, Daily, First dose on Fri04/27/24 at 0900 0832 (Given - Provid er: Erlinda Nice RN) aspirin EC tablet 81 mg 81 mg, Oral, Daily, First dose on Fri04/27/24 at 0900, Do not crush, chew, or split. 0832 (Given - Provid er: Erlinda Nice RN) atorvastatin (Lipitor) tablet 40 mg 40 mg, Oral, Daily, First dose on Fri04/26/24 at 1030 1030 (Not Given - Provider: Katy Milian RN - Reason: Other - Comment: takes in evening)2004 (Given - Provider: Elpidio Gold RN) carvedilol (Coreg) tablet 12.5 mg 12.5 mg, Oral, 2 times daily with meals, First dose on Fri04/26/24 at 1700 1706 (Given - Provider: Katy Milian RN) 0832 (Given - Provider: Erlinda Nice RN) ceFAZolin in dextrose 4% (Ancef) IVPB 2,000 mg (COMPLETED) 2,000 mg, IntraVENous, Administer over 30 Minutes, Once, On Fri04/26/24 at 0545, For 1 dose, Preprocedure, Administer within 1 hour prior to incision. Recommend to repeat in 3-4 hours after initial dose if still intra-op. premix bag, Suspected Indication (Select all that apply): Surgical Prophylaxis 0737 (Given - Provider: ANGELA Browning CRNA)0836 (Anesthesia Volume Adjustment - Provider: ANGELA Browning CRNA) clopidogrel (Plavix) tablet 75 mg 75 mg, Oral, Daily, First dose on Fri04/26/24 at 1030 1030 (Not Given - Provider: Katy Milian RN - Reason: Other - Comment: takes in evening)2004 (Given - Provider: Elpidio Gold RN) gabapentin (Neurontin) capsule 800 mg 800 mg, Oral, 2 times daily, First dose on Fri04/26/24 at 2100 2004 (Given - Provider: Elpidio Gold RN) 0832 (Given - Provider: Erlinda Nice RN) isosorbide mononitrate ER (Imdur) 24 hr tablet 30 mg 30 mg, Oral, Daily, First dose on Fri04/27/24 at 0900, Do not chew or crush ER tablets; may be divided in half. Due to insoluble matrix embedding, ER tablets that are scored may be split. 0832 (Given - Provid er: Erlinda Nice RN) mupirocin (Bactroban) 2 % ointment 1 Application 1 Application, Nasal, 2 times daily, First dose on Fri04/26/24 at 0915, For 5 days, Recovery & On Unit, Indications: MRSA Nasal Decolonization 914 (Not Given - Provider: Katy Milian RN - Reason: Other)2004 (Given - Provider: Elpidio Gold RN) 0832 (Given - Provider: Erlinda Nice RN) pantoprazole (ProtoNix) EC tablet 40 mg 40 mg, Oral, Daily before breakfast, First dose on Fri04/27/24 at 0600, Substituted for omeprazole (Prilosec). Do not crush, chew, or split. 0600 (Given - Provid er: Elpidio Gold RN) tiotropium (Spiriva Respimat) 2.5 MCG/ACT inhaler 2 puff 2 puff, Inhalation, Daily, First dose on Fri04/27/24 at 0900, Instruct to hold breath for 10 seconds after each inhalation. Before first use, prime inhaler by actuating until aerosal cloud is seen, then actuating 3 more times. 1102 (Given - Provid er: Erlinda Nice RN) Continuous Medication Order 04/25/2024 04/26/2024 04/27/2024 sodium chloride 0.9 % infusion (CANCELED) 50 mL/hr, IntraVENous, Continuous, Starting on Fri04/26/24 at 0545, Preprocedure, Upon admission to sameday - please start iv if patient does not have iv access. 0600 (New Bag - Provider: Vonnie Lovelace RN)0734 (Continued by Anesthesia - Provider: Bernard Carter APRN - ENOLOGIST)0836 (Stopped - Provider: Bernard Carter APRN - DARIO) PRN Medication Order 04/25/2024 04/26/2024 04/27/2024 acetaminophen (Tylenol) tablet 650 mg 650 mg, Oral, Every 4 hours PRN, mild pain (1-3), Fever > 100.5 F (38 C), Starting on Fri04/26/24 at 0906, Recovery & On Unit, Maximum dose of acetaminophen is 4000 mg from all sources in 24 hours. heparin 1,000 Units in sodium chloride 0.9 % 500 mL OR irrigation (CANCELED) As needed, Starting on Fri04/26/24 at 0815, Intraprocedure 0815 (Given - Provider: Galo Koo MD) iodixanol (VISIPaque) 320 MG/ML injection (COMPLETED) Continuous PRN, Starting on Fri04/26/24 at 0841, Intraprocedure 0841 (New Bag - Provider: Galo Koo MD) 0700 (Stopped - Provider: Erlinda Nice RN - Comment: Not infusing at time of assessment) lidocaine (Xylocaine) 1 % injection (CANCELED) As needed, Starting on Fri04/26/24 at 0841, Intraprocedure 0841 (Given - Provider: Galo Koo MD) naloxone (Narcan) injection 0.4 mg 0.4 mg, IntraVENous, Every 5 min PRN, opioid reversal, respiratory depression, Starting on Fri04/26/24 at 1029, +++ For RR <10, pinpoint pupils, over sedation for opioid reversal - MUST notify industrial relations worker provider immediately after first dose, may give IM or SQ if no IV access +++ perflutren protein A microsphere (Optison) 3 mL in sodium chloride (PF) 0.9 % 10 mL IV syringe 0-10 mL, IntraVENous, IMG once PRN, other, Suboptimal echo image, Starting on Fri04/26/24 at 0906, For 1 dose, CV Procedural Medications, Administer via slow IVP for suboptimal echocardiogram enhancement. May administer as divided doses to reach optimal image enhancement sodium chloride 0.9 % irrigation solution (CANCELED) As needed, Starting on Fri04/26/24 at 0815, Intraprocedure 0815 (Given - Provider: Galo Koo MD) traMADol (Ultram) tablet 50 mg 50 mg, Oral, Every 6 hours PRN, moderate pain (4-6), Starting on Fri04/26/24 at 1200, Max of 300 mg daily for patients > 75 years of age. (unrecognized sect ion and content) No Status Records FoundNo Status Records Found INFORMATION SOURCE (unrecogn ized section and content) DATE CREATED AUTHOR 06/06/2024 [facility] DATE CREATED AUTHOR AUTHOR'S ORGANIZ ATION 09/16/2024 [facility] FOR RECORDS PERTAINING TO PATIENTS WHO ARE [...] BE BASED ON THE PRIMARY CLINICAL RECORDS. [employer] provides no warranty or guarantee of the accuracy or completeness of information in this document.
--- NOTE | 2024-09-18 13:35 | EDS_ITS ---
HPI <Dr. Bj Gaspar DO - Last Filed: 09/18/24 17:13> History of Present Illness Chief Complaint: Chest Pain Informant: patient Onset/Context/Timing Onset: Today Activity at onset: sudden Timing: Waxes and wanes Quality: Positive for - (Squeezing) Location: Substernal Worsened By: Nothing Relieved By: NTG Associated Symptoms: Positive for Nausea, Acid Reflux and Palpitations; Negative for Vomiting, Diaphoresis, Dyspnea, Cough, Fever or Lightheadedness Narrative Narrative: Patient presents with chest pain that began today. Patient states that it began rather suddenly. Patient states it has been waxing and waning. Patient describes it as a squeezing sensation. Patient states it is over the lower substernal area. Patient states he took 1 sublingual nitroglycerin and his pain improved. Patient states that after the nitroglycerin wore off, his pain returned. Patient then called EMS. Patient admits to some nausea but denies any vomiting. Patient admits to some heartburn and some palpitations. Patient denies any shortness of breath or cough. Patient denies any diaphoresis. CVD Risk Factors: Positive for Hypertension; Negative for Diabetes, Hypercholesterolemia, Family History 1' </=55 or Smoking PE Risk Factors: Positive for Recent Travel/Surgery; Negative for Recent Immobilization, Prior DVT or PE, Cancer or OCP + Smoking + >/=35 PFSH <Dr. Bj Gaspar DO - Last Filed: 09/18/24 17:13> PFSH Medical History History of transcatheter aortic valve replacement (TAVR) Loss of hearing No natural teeth Hepatitis High cholesterol Injury of back History of hiatal hernia Sleep apnea Leg cramps Chest pain Aortic stenosis Neck fracture Chronic back pain Lumbar pain COVID Carotid atherosclerosis Venous insufficiency Venous ulcer Wears hearing aid Wears glasses Complete edentulism, class III Alcohol use Marijuana use Injury of head and neck Loss of consciousness History of diverticulitis Former smoker CPAP (continuous positive airway pressure) dependence History of pain when walking Neuropathy Hypertension History of stress test History of echocardiogram Cardiology follow-up encounter HLD (hyperlipidemia) Renal artery stenosis Bilateral carotid artery stenosis Nonrheumatic aortic (valve) stenosis H/o addiction H/o blood transfusion Heart disease Lung disease Arthritis DJD (degenerative joint disease) Hiatal hernia GERD (gastroesophageal reflux disease) Bilateral carotid bruits Fibromyalgia Back pain Restless legs Peripheral artery disease 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 Obstructive sleep apnea Right leg weakness Right arm weakness Hepatitis C Chronic obstructive lung disease Benign essential hypertension Acute exacerbation of chronic obstructive airways disease Abdominal pain Home Medications ?Medication ?Instructions ?Recorded ?Last Taken ?Type omeprazole 40 mg capsule,delayed 40 mg PO DAILY Indige stion 04/01/22 05/14/23 History release nitroglycerin 0.4 mg sublingual 0.4 mg sublingual Q5M PRN Chest 12/05/22 Unknown Rx tablet Pain #25 tabs atorvastatin 40 mg tablet 40 mg PO QDAY HYPERLIPIDEMIA 04/23/23 05/13/23 History sennosides 8.6 mg-docusate sodium 2 tab PO BID PRN con stipation 7 05/15/23 Unknown Rx 50 mg tablet (Stool days #28 tabs Softener-Stimulant Laxative) tramadol 50 mg tablet 50 mg PO Q6 PRN 07/11/23 Unk nown History amlodipine 5 mg tablet 5 mg PO DAILY HYPERTENSION # 90 tabs 07/22/23 Unknown Rx clopidogrel 75 mg tablet 75 mg PO DAILY BLOOD THINNER #90 09/04/23 Unknown Rx tabs isosorbide mononitrate 30 mg 30 mg PO DAILY HYPERTENSI ON #90 11/07/23 Unknown Rx tablet,extended release 24 hr tabs carvedilol 25 mg tablet 12.5 mg (1/2 x 25 mg) PO BID 11/10/23 Unknown Rx HYPERTENSION #180 tabs aspirin 81 mg tablet,delayed 81 mg PO QDAY 06/09/24 Un known History release gabapentin 400 mg capsule 1,600 mg PO BID PAIN 5 Unknown History tiotropium bromide 1.25 2 puff inhalation QDAY 09/03 Unknown History mcg/actuation mist for inhalation (Spiriva Respimat) nintedanib 100 mg capsule (Ofev) 100 mg PO Q12H #60 ca ps 09/08/24 Unknown Rx Allergy/AdvReac Type Severity Reaction Status Date / Time codeine Allergy Shortness Verified 09/08/24 08:43 of breath lisinopril Allergy Shortness Verified 09/08/24 08:43 of breath Family History Brother Tonsil cancer Cancer Skin Diabetes Sister Breast cancer Diabetes Mother Diabetes Hypertension CAD (coronary artery disease) Myocardial infarction Brother CAD (coronary artery disease) Myocardial infarction Cardiomyopathy Father Cancer Surgical History S/P aortic valve replacement History of coronary artery stent placement History of nasal surgery History of cardiac catheterization Hx of colonoscopy Hx of hemorrhoidectomy Presence of stent in coronary artery (~03/2011) Postsurgical percutaneous transluminal coronary angioplasty (PTCA) status (~03/2011) History of stent insertion of renal artery History of back surgery Social History household members: spouse housing: house current occupational status: employed Smoking Status: Former smoker quit date: 06/23/99 second hand exposure: Yes alcohol intake: never substance use type: marijuana and other details: h/o addiction caffeine: Yes what type of physical activity do you participate in: walking frequency: 5-6 times per week seatbelt use: always do you feel safe at home: Yes ROS <Dr. Bj Gaspar, DO - Last Filed: 09/18/24 17:13> ROS ED Constitutional Constitutional ED: Denies chills or fever(s) Eyes Eyes: Denies blurry vision or change in vision ENT ENT ED: Reports sore throat; Denies rhinorrhea Cardiovascular Cardiovascular: Reports chest pain and palpitations Respiratory/Chest Respiratory/Chest: Denies cough or dyspnea Gastrointestinal Gastrointestinal: Reports nausea; Denies vomiting Genitourinary Genitourinary ED: Denies dysuria or hematuria Musculoskeletal Musculoskeletal: Denies back pain or neck pain Integumentary Denies abscess or rash Neurologic Neurologic: Denies headache(s) or weakness Allergic/Immunologic Allergic/Immunologic ED: Denies mouth swelling or urticaria EXAM <Dr. Bj Gaspar, - Last Filed: 09/18/24 17:13> Physical Exam Const Vital Signs: 09/18/24 12:47 09/18/24 13:06 09/18/24 13:46 Temperature 96.8 F L Temperature Source Temporal Pulse Rate 63 53 L Respiratory Rate 20 H 12 Blood Pressure 157/127 H 158/78 H Blood Pressure Mean 137 104 Pulse Ox 100 98 99 Oxygen Delivery Method Room Air Room Air Room Air 09/18/24 14:08 09/18/24 15:10 09/18/24 16:16 Temperature Temperature Source Pulse Rate 57 L 50 L 59 L Respiratory Rate 11 L 12 17 Blood Pressure 166/79 H 154/79 H Blood Pressure Mean 108 104 Pulse Ox 99 98 98 Oxygen Delivery Method 09/18/24 17:11 09/18/24 18:05 Temperature Temperature Source Pulse Rate 58 L 58 L Respiratory Rate 19 H 17 Blood Pressure Blood Pressure Mean Pulse Ox 98 95 Oxygen Delivery Method Positive well nourished and well developed General Appearance ED: well developed and NAD HEENT Reports moist mucous membranes Neck supple and no JVD Resp normal respiratory effort and clear to auscultation bilaterally Cardio regular rate and regular rhythm GI soft to palpation, non-tender and non-distended Extremity normal to inspection Neuro oriented x3, CN's II-XII intact bilaterally and no sensory deficits noted Sensorium / Orientation: awake and alert Motor Exam: strength 5/5 throughout Psych mental status grossly normal <Dr. Soham Moreno MD - Last Filed: 09/18/24 18:15> Physical Exam Const Vital Signs: 09/18/24 12:47 09/18/24 13:06 09/18/24 13:46 Temperature 96.8 F L Temperature Source Temporal Pulse Rate 63 53 L Respiratory Rate 20 H 12 Blood Pressure 157/127 H 158/78 H Blood Pressure Mean 137 104 Pulse Ox 100 98 99 Oxygen Delivery Method Room Air Room Air Room Air 09/18/24 14:08 09/18/24 15:10 09/18/24 16:16 Temperature Temperature Source Pulse Rate 57 L 50 L 59 L Respiratory Rate 11 L 12 17 Blood Pressure 166/79 H 154/79 H Blood Pressure Mean 108 104 Pulse Ox 99 98 98 Oxygen Delivery Method 09/18/24 17:11 09/18/24 18:05 Temperature Temperature Source Pulse Rate 58 L 58 L Respiratory Rate 19 H 17 Blood Pressure Blood Pressure Mean Pulse Ox 98 95 Oxygen Delivery Method <Dr. Bj Gaspar DO - Last Filed: 09/18/24 17:13> Heart Score History: Slightly/Non-Suspicious ECG: Normal Age: >/= 65 years Risk Factors: 1 or 2 Risk Factors Troponin: </= Normal Limit Score: 3 <Dr. Soham Moreno MD - Last Filed: 09/18/24 18:15> Heart Score Score: 3 MDM <Dr. Bj Gaspar, DO - Last Filed: 09/18/24 17:13> [facility] Narrative Medical decision making narrative: Differential diagnosis includes cardiac dysrhythmia, cardiac ischemia, pneumonia , bronchitis, electrolyte abnormality, pulmonary embolism, gastroesophageal reflux disease, and anxiety. EKG will be obtained to assess for cardiac dysrhythmia and cardiac ischemia. Chest x-ray will be obtained to assess for pneumonia and bronchitis. CBC will be obtained to assess for leukocytosis and anemia. Basic metabolic profile will be obtained to assess for electrolyte abnormality and renal function. High-sensitivity troponin will be obtained to assess for cardiac ischemia. 2-hour repeat high-sensitivity troponin will be obtained to assess for ongoing cardiac ischemia. History & Record Review Additional record(s) reviewed:: Prior inpatient record, Prior outpatient record and Prior labs Lab Data Attestation: I reviewed the patient's lab results. Lab results narrative: CBC was reviewed and was within normal limits. Basic metabolic profile was reviewed and was within normal limits. Initial high-sensitivity troponin was reviewed and was normal at 9. 2-hour repeat high-sensitivity troponin was reviewed and was normal at 10. D-dimer was reviewed and was elevated at 1.24. Labs: Laboratory Results - last 24 hr 09/18/24 09/18/24 09/18/24 12:00 12:55 14:57 WBC 10.7 RBC 4.95 Hgb 14.8 Hct 44.2 MCV 89.3 MCH 29.9 MCHC 33.5 RDW Std Deviation 48.7 H RDW Coeff of Cristopher 14.9 H Plt Count 141 L MPV 9.5 Immature Gran % (Auto) 0.500 Neut % (Auto) 63.3 Lymph % (Auto) 21.8 Moffat % (Auto) 11.1 H Eos % (Auto) 2.6 Baso % (Auto) 0.7 Absolute Neuts (auto) 6.8 Absolute Lymphs (auto) 2.33 Nucleated RBC % 0 D-Dimer Quant (PE/DVT) 1.24 H* Sodium 137 Potassium 4.2 Chloride 103 Carbon Dioxide 23.5 Anion Gap 11 BUN 8 Creatinine 1.03 Est GFR (MDRD) Non-Af 76 BUN/Creatinine Ratio 8.0 L Glucose 97 Calcium 9.3 Troponin T High Sens 9 Troponin T Hi Sens 2 Hr 10 Radiography Chest X-Ray - ED: 1 View, Read by ED Physician, Read by Radiologist and No Acute Disease Diagnostic Testing: Clinical Impression(s) from Imaging Studies Chest X-Ray 09/18/24 13:06 IMPRESSION: Mild pulmonary vascular congestion. Underlying chronic lung disease noted. Bibasilar subsegmental atelectasis. no focal consolidation. Reading Location: [facility] Chest CTA 09/18/24 16:45 IMPRESSION: 1. No evidence of acute pulmonary embolism. 2. Stable marked, severe emphysema. 3. Severe coronary artery calcifications. 4. Interval TAVR. Reading Location: [facility] Portable 1 view chest x-ray was obtained. On my independent interpretation, lung torres show mild pulmonary vascular congestion. There are chronic changes noted. There is normal cardiac silhouette. Bony thorax is normal. There is no acute process noted. Radiologist also interpreted the x-ray and agrees. EKG Initial EKG: Attestation: I personally reviewed and interpreted this EKG as follows: Interpretation: Sinus Rhythm (63) and No Acute Injury Pattern Comments: EKG was obtained. On my independent interpretation, it showed a normal sinus rhythm with a rate of 63. TX interval, QRS interval, and QTc intervals were all normal. [place] was normal. There are no acute ST or T wave changes. Prior EKG tracings: available for review Prior: Unchanged (April 30, 2023) Additional Tests and Interventions Additional Tests or Interventions: Because of the elevated D-dimer, CTA of the chest will be obtained to assess for pulmonary embolism. Treatment and Re-Evaluation :: Patient was advised of his findings. Patient has a HEART score of 3. Patient was advised that this is low risk for acute cardiac event. Care of the patient was turned over to the oncoming physician pending CTA results. If his CTA is negative, I feel the patient can be discharged home. If the CTA is positive, patient should be started on anticoagulants since he is only on Plavix. Patient and family understand and are agreeable with the plan. All questions were answered. <Dr. Soham Moreno MD - Last Filed: 09/18/24 18:15> [facility] [place] Lab Data Labs: Laboratory Results - last 24 hr 0609/18/24 09/18/24 12:00 12:55 14:57 WBC 10.7 RBC 4.95 Hgb 14.8 Hct 44.2 MCV 89.3 MCH 29.9 MCHC 33.5 RDW Std Deviation 48.7 H RDW Coeff of Cristopher 14.9 H Plt Count 141 L MPV 9.5 Immature Gran % (Auto) 0.500 Neut % (Auto) 63.3 Lymph % (Auto) 21.8 Moffat % (Auto) 11.1 H Eos % (Auto) 2.6 Baso % (Auto) 0.7 Absolute Neuts (auto) 6.8 Absolute Lymphs (auto) 2.33 Nucleated RBC % 0 D-Dimer Quant (PE/DVT) 1.24 H* Sodium 137 Potassium 4.2 Chloride 103 Carbon Dioxide 23.5 Anion Gap 11 BUN 8 Creatinine 1.03 Est GFR (MDRD) Non-Af 76 BUN/Creatinine Ratio 8.0 L Glucose 97 Calcium 9.3 Troponin T High Sens 9 Troponin T Hi Sens 2 Hr 10 Radiography Diagnostic Testing: Clinical Impression(s) from Imaging Studies Chest X-Ray 09/18/24 13:06 IMPRESSION: Mild pulmonary vascular congestion. Underlying chronic lung disease noted. Bibasilar subsegmental atelectasis. no focal consolidation. Reading Location: [facility] Chest CTA 09/18/24 16:45 IMPRESSION: 1. No evidence of acute pulmonary embolism. 2. Stable marked, severe emphysema. 3. Severe coronary artery calcifications. 4. Interval TAVR. Reading Location: [facility] Treatment and Re-Evaluation Comments:: CT reveals no evidence of pulmonary embolus. Patient was discharged to home. Does reveal severe lung disease and status post TAVR procedure per radiologist. Discharge Plan Triage Chief Complaint: Chest Pain ED Provider: Bj Gaspar Dx/Rx/DC Orders Clinical Impression: Chest pain, Benign essential hypertension, Pulmonary fibrosis, History of transcatheter aortic valve replacement (TAVR), Rheumatoid factor positive, Elevated blood pressure reading, Bradycardia, sinus Instructions: ED Chest Pain, Uncertain Cause Prescriptions: No Action omeprazole 40 mg capsule,delayed release(DR/EC) 40 mg PO DAILY atorvastatin 40 mg tablet 40 mg PO QDAY tramadol 50 mg tablet 50 mg PO Q6 PRN aspirin 81 mg tablet,delayed release (DR/EC) 81 mg PO QDAY Ofev 100 mg capsule 100 mg PO Q12H Qty: 60 11RF Spiriva Respimat 1.25 mcg/actuation mist 2 puff inhalation QDAY gabapentin 400 mg capsule 1,600 mg PO BID Patient Comments: pain sennosides-docusate sodium [Stool Softener-Stimulant Laxat] 8.6-50 mg Tablet 2 tab PO BID PRN (Reason: constipation) 7 Days Qty: 28 0RF nitroglycerin 0.4 mg tablet, sublingual 0.4 mg SUBLINGUAL Q5M PRN (Reason: Chest Pain) Qty: 25 11RF Patient Comments: chest pain amlodipine 5 mg tablet 5 mg PO DAILY Qty: 90 3RF clopidogrel 75 mg tablet 75 mg PO DAILY Qty: 90 3RF isosorbide mononitrate 30 mg tablet extended release 24 hr 30 mg PO DAILY Qty: 90 3RF carvedilol 25 mg tablet 12.5 mg PO BID Qty: 180 3RF Primary Care Provider: Beulah Catherine Referrals: Beulah Catherine DO [Primary Care Provider] - 3-5 Days Print Language: Upper Sorbian Disposition Disposition: Home, Self Care
[2024-09-18 13:51] LABS: Anion Gap 11 (5-15); BUN 8 mg/dL (4-19); Calcium,Total 9.3 mg/dL (7.6-11.0); Carbon Dioxide 23.5 mmol/L (21.0-32.0); Chloride 103 mmol/L (98-108); Creatinine, Serum 1.03 mg/dL (0.70-1.20); EST Glomerular Filtration Rate 76 (>60); Glucose 97 mg/dL (70-99); Potassium 4.2 mmol/L (3.3-5.1); Sodium Level 137 mmol/L (133-145); Troponin T High Sensitivity 9 ng/L (<=22)
[2024-09-18 15:45] LABS: Troponin T High Sens 2 HR 10 ng/L (<=22)
[2024-09-18 16:44] LABS: D-Dimer Quantitative (DVT/PE) 1.24 FEU/ug/m (0.27-0.49)
--- NOTE | 2024-09-18 16:45 | CT_ITS ---
PROCEDURE: CTA CHEST W/WO CONTRAST 09/18/2024 REASON FOR EXAM: ELEVATED D-DIMER TECHNIQUE: CTA axial imaging of the chest with intravenous contrast. Coronal and Sagittal reconstruction series were provided. 3D, 3D post processing, 3D reconstructions, Maximum intensity projection (MIPs) Volume rendering and Shaded surface rendering was provided. PATIENT PREPARATION: Per protocol CONTRAST: Isovue 370 VOLUME: 100mL One or more dose reduction techniques were used (e.g., Automated exposure control, adjustment of the mA and/or kV according to patient size, use of iterative reconstruction technique). RADIATION DOSE SUMMARY: DLP: 400 mGycm COMPARISON: Low-dose CT lung screening 03/25/2024. FINDINGS: Hardware: None. Lymph nodes: No axillary, mediastinal or hilar lymphadenopathy. Heart: The heart is normal in size without pericardial effusion. The great vessels are normal in caliber. Interval TAVR. Severe coronary artery and moderate thoracic aortic calcifications. Pulmonary Vessels: No central filling defect within the segmental or subsegmental pulmonary arteries. Lungs and Airways: The central airways are patent. Marked, severe emphysema with numerous bleb formation and honeycombing. No pleural effusion or pneumothorax. Upper Abdomen: Mild thickening of the left adrenal gland. Small hiatal hernia. Calcific plaque of the visualized abdominal aorta. Bones: Thoracic spondylosis. CT/CTA Chest W/WO Contrast IMPRESSION: 1. No evidence of acute pulmonary embolism. 2. Stable marked, severe emphysema. 3. Severe coronary artery calcifications. 4. Interval TAVR. Reading Location: [id number]
== END 2024-09-18 18:21 | disposition home or self-care (01) ==
PROVIDERS: Emergency Provider Emergency Medicine; PCP Family Medicine; Referring Provider Emergency Medicine; Visit Provider Emergency Medicine
DX: R07.9 Chest pain, unspecified (principal); J84.10 Pulmonary fibrosis, unspecified; R00.1 Bradycardia, unspecified; I10 Essential (primary) hypertension; R11.0 Nausea; E78.00 Pure hypercholesterolemia, unspecified; I25.10 Atherosclerotic heart disease of native coronary artery without angina pectoris; Z87.891 Personal history of nicotine dependence; R12 Heartburn; R03.0 Elevated blood-pressure reading, without diagnosis of hypertension; Z95.4 Presence of other heart-valve replacement; Z86.16 Personal history of COVID-19; G47.33 Obstructive sleep apnea (adult) (pediatric); Z95.5 Presence of coronary angioplasty implant and graft; F12.90 Cannabis use, unspecified, uncomplicated; J02.9 Acute pharyngitis, unspecified
CPT/HCPCS: 71045; 71275; 80048; 84484; 85025; 85379; 93005; 99284; Q9967; A4216

== ENCOUNTER → 2024-09-23 | Outpatient (CLI) | payer MEDICARE, SELFPAY ==
[2024-09-23 08:27] VITALS: PULSE 53; PULSE 54; PULSE 64; PULSE 65; O2SAT 93; O2SAT 94; O2SAT 95; O2SAT 96
== END | disposition home or self-care (01) ==
PROVIDERS: PCP Family Medicine; Referring Provider Nurse Practitioner Family; Visit Provider Nurse Practitioner Family
DX: J84.10 Pulmonary fibrosis, unspecified (principal)
CPT/HCPCS: 94618

== ENCOUNTER → 2024-10-07 | Outpatient (CLI) | payer MEDICARE, SELFPAY ==
--- NOTE | 2024-10-07 10:44 | VDLE_ITS ---
Reason For Study Reason For Study: BLE Edema RIGHT LEFT GSV is normal. GSV is normal. CFV is compressible, spontaneous, competent and CFV is compressible, spontaneous, competent, and demonstrates pulsatile venous flow. demonstrates pulsatile venous flow. FV is compressible, spontaneous, competent and FV is compressible, spontaneous, competent and demonstrates pulsatile venous flow. demonstrates pulsatile venous flow. POP V is compressible, spontaneous, competent and POP V is compressible, spontaneous, competent and demonstrates pulsatile venous flow. demonstrates pulsatile venous flow. T/P Trunk is compressible. T/P Trunk is compressible. PTV is compressible. PTV is compressible. RT PerV is compressible. LT PerV is compressible. Procedure This is a venous duplex using B-mode, color flow and spectral Doppler. Exam performed in department. The exam was diagnostic. A preliminary report was called and/or faxed to Dr. Catherine. VL/Venous Duplex US - Melvin Extrem Interpretation Summary Deep veins of the lower extremities are bilaterally patent and compressible seg mentally. There is no evidence of deep vein thrombosis on either side. Valvular competence appears intact within the p roximal deep venous systems bilaterally. The great saphenous veins appear bilaterally patent and compressible segmentall y. Pulsatile flow is noted in the deep venous system bilaterally, which may be indicative of elevated central venous p ressure (i.e. congestive heart failure, pulmonary hypertension, etc.). Clinical correlation is advised. Ordering Physician: Beulah Catherine Referring Physician: Beulah Catherine Performed By: Mane Friedman, RVT
== END | disposition home or self-care (01) ==
LOC: CVS 10:43
PROVIDERS: PCP Family Medicine; Referring Provider Family Medicine; Visit Provider Family Medicine
DX: R60.9 Edema, unspecified (principal); M79.604 Pain in right leg; M79.605 Pain in left leg
CPT/HCPCS: 93970

== ENCOUNTER → 2025-01-19 | Outpatient (CLI) | payer MEDICARE, SELFPAY ==
[2025-01-19 14:16] LABS: Hematocrit 41.9 % (40-54); Hemoglobin 13.9 g/dL (13.0-16.5); Immature Granulocytes Count 0.050 X10^3/uL (0.0-0.0); Mean Corp Hgb Conc 33.2 g/dL (32-36); Mean Corpuscular Volume 90.5 fL (80-94); Mean Platelet Vol. 10.3 fl (6.2-12.0); NRBC Flagged by Analyzer 0 % (0-5); Platelet Count 145 K/mm3 (150-450); RBC Distribution Width CV 14.1 % (11.6-14.6); RBC Distribution Width SD 47.2 fl (35.1-43.9); Red Blood Count 4.63 M/mm3 (4.6-6.2); White Blood Count 9.1 K/mm3 (4.4-11.0)
[2025-01-19 14:43] LABS: AST(SGOT) 24 U/L (<=37); Alanine Aminotransfer ALT/SGPT 18 U/L (<=46); Albumin, Serum 3.9 g/dL (3.4-4.8); Alkaline Phosphatase 70 U/L (40-129); Anion Gap 7 (5-15); BUN 11 mg/dL (4-19); BUN/Creat Ratio 11.2 RATIO (10-20); Bilirubin, Direct 0.20 mg/dL (0.00-0.30); Calcium,Total 9.2 mg/dL (7.6-11.0); Carbon Dioxide 28.6 mmol/L (21.0-32.0); Chloride 103 mmol/L (98-108); Cholesterol 113 mg/dL (<=200); Globulin 3.0 g/dL (2.2-4.2); Glucose 90 mg/dL (70-99); Low Density Lipoprotein Calc. 51 mg/dL; PSA,Total - Annual Screen 0.30 ng/mL (0.02-4.00); Potassium 4.3 mmol/L (3.3-5.1); Triglycerides 90 mg/dL; Very Low Density Lipoprotein 18 mg/dL (5-40); cholesterol:hdl ratio screen 2.53
== END | disposition home or self-care (01) ==
LOC: MTLAB 09:42
PROVIDERS: Nurse Practitioner Acute Care; PCP Family Medicine; Referring Provider Family Medicine; Visit Provider Family Medicine
DX: Z12.5 Encounter for screening for malignant neoplasm of prostate (principal); E78.5 Hyperlipidemia, unspecified; Z51.81 Encounter for therapeutic drug level monitoring
CPT/HCPCS: 36415; 80053; 80061; 82248; 84153; 85025; G0103